=== PATIENT | female | born 2000 | race Caucasian/White ===

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

== ENCOUNTER 2019-02-08 21:15 | Emergency (ER) | payer OTHER ==
--- NOTE | 2019-02-08 21:44 | EDPHYS ---
Physician Documentation [facility] Name: Adelaide Trinidad Age: 19 yrs Sex: Female : 2000 Arrival Date: 02/08/2019 Time: 21:16 Bed 7 Private MD: Bobby Borrero ED Physician Steven Arita HPI: 02/08 21:41 This 19 yrs old Female presents to ER via Ambulatory with complaints of Skin rn Problem. 21:41 the patient presents with a swollen area of the abdomen. Description: erythematous, rn swollen. Onset: The symptoms/episode began/occurred 2 day(s) ago. Possible cause(s): unknown, spider bite. Modifying factors: the symptoms are alleviated by nothing, the symptoms are aggravated by squeezing the lesion and expressing the contents, touching. Severity of symptoms: At their worst the symptoms were very mild, in the emergency department the symptoms are unchanged. The patient has not experienced similar symptoms in the past. REports to small bumps on abdomen that began 2 days ago. NO fever. Sister recently with staph infection. NO hx of recurrent staph infections.. 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 - Social history:: Smoking status: Patient/guardian denies using tobacco. - Ebola Screening: : No symptoms or risks identified at this time. - Family history:: not pertinent. - Hospitalizations: : No recent hospitalization is reported. ROS: 21:41 Constitutional: Negative for fever, chills, and weight loss, Skin: + 2 small pustules rn to abd Exam: 21:41 Constitutional: This is a well developed, well nourished patient who is awake, alert, rn and in no acute distress. Skin: Warm, dry, + 2 areas on anterior LLQ abdominal wall with pustules, no fluctuance, + mild surrounding erythema Vital Signs: 21:21 BP 114 / 66; Pulse 88; Resp 16; Temp 97.7(TE); Pulse Ox 100% on R/A; Weight 72.57 kg; lp1 Height 4 ft. 11 in. (149.86 cm); Pain 7/10; 21:21 Body Mass Index 32.32 (72.57 kg, 149.86 cm) lp1 MDM: 21:33 Patient medically screened. rn 21:41 Differential diagnosis: abscess, cellulitis, insect bite. Data reviewed: vital signs, rn nurses notes, and as a result, I will discharge patient. Counseling: I had a detailed discussion with the patient and/or guardian regarding: the historical points, exam findings, and any diagnostic results supporting the discharge/admit diagnosis, the need for outpatient follow up, to return to the emergency department if symptoms worsen or persist or if there are any questions or concerns that arise at home. Special discussion: I discussed with the patient/guardian in detail that at this point there is no indication for admission to the hospital. It is understood, however, that if the symptoms persist or worsen the patient needs to return immediately for re-evaluation. 21:45 ED course: Instructed to apply heat and continue working with pustules like pimples and rn return if fluctuant or abscess form.. Administered Medications: 21:54 Drug: Clindamycin 300 mg Route: PO; la1 21:54 Follow up: Response: Medication administered at discharge. la1 Disposition: 02/08/19 21:44 Discharged to Home. Impression: Cellulitis of abdominal wall - With pustules. - Condition is Stable. - Discharge Instructions: Cellulitis, Adult. - Prescriptions for Clindamycin HCl 300 mg Oral Capsule - take 1 capsule by ORAL route every 6 hours for 10 days; 40 capsule. - Medication Reconciliation Form, Thank You Letter, Antibiotic Education, Prescription Opioid Use form. - Follow up: Private Physician; When: As needed; Reason: Recheck today's complaints, Re-evaluation by your physician. - Problem is new. - Symptoms have improved. Signatures: Steven Arita MD MD rn Pena, Laura RN RN lp1 Eric Thompson RN RN la1 Corrections: (The following items were deleted from the chart) 21:55 21:44 02/08/2019 21:44 Discharged to Home. Impression: Cellulitis of abdominal wall - la1 With pustules. Condition is Stable. Forms are Medication Reconciliation Form, Thank You Letter, Antibiotic Education, Prescription Opioid Use. Follow up: Private Physician; When: As needed; Reason: Recheck today's complaints, Re-evaluation by your physician. Problem is new. Symptoms have improved. rn
--- NOTE | 2019-02-08 21:44 | ER ---
Nurse's Notes [facility] Name: Adelaide Trinidad Age: 19 yrs Sex: Female : 2000 Arrival Date: 02/08/2019 Time: 21:16 Bed 7 Private MD: Bobby Borrero Diagnosis: Cellulitis of abdominal wall-With pustules Presentation: 02/08 21:20 Presenting complaint: Patient states: Small abscesses x2 to abdomen for the past 2 lp1 days, states painful. Transition of care: patient was not received from another setting of care. Onset of symptoms was February 08, 2019. Risk Assessment: Do you want to hurt yourself or someone else? Patient reports no desire to harm self or others. Initial Sepsis Screen: Does the patient meet any 2 criteria? No. Patient's initial sepsis screen is negative. Does the patient have a suspected source of infection? No. Patient's initial sepsis screen is negative. Care prior to arrival: None. 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 - Social history:: Smoking status: Patient/guardian denies using tobacco. - Ebola Screening: : No symptoms or risks identified at this time. - Family history:: not pertinent. - Hospitalizations: : No recent hospitalization is reported. Screenin:22 Abuse screen: Denies threats or abuse. Denies injuries from another. Nutritional lp1 screening: No deficits noted. Tuberculosis screening: No symptoms or risk factors identified. Fall Risk None identified. Assessment: 21:35 General: Appears in no apparent distress. Behavior is calm, cooperative. Pain: Denies la1 pain. Derm: Abscess located on left upper quadrant and left lower quadrant is nickel sized, has no drainage, is hot to touch, is red, is raised. Vital Signs: 21:21 BP 114 / 66; Pulse 88; Resp 16; Temp 97.7(TE); Pulse Ox 100% on R/A; Weight 72.57 kg; lp1 Height 4 ft. 11 in. (149.86 cm); Pain 7/10; 21:21 Body Mass Index 32.32 (72.57 kg, 149.86 cm) lp1 ED Course: 21:16 Patient arrived in ED. do 21:16 Bobby Borrero MD is Private Physician. do 21:21 Triage completed. lp1 21:22 Arm band placed on right wrist. lp1 21:22 Patient has correct armband on for positive identification. lp1 21:33 Steven Arita MD is Attending Physician. rn 21:35 Eric Thompson RN is Primary Nurse. la1 21:35 No provider procedures requiring assistance completed. Patient did not have IV access la1 during this emergency room visit. Administered Medications: 21:54 Drug: Clindamycin 300 mg Route: PO; la1 21:54 Follow up: Response: Medication administered at discharge. la1 Outcome: 21:44 Discharge ordered by . rn 21:54 Discharged to home ambulatory. la1 21:54 Condition: stable 21:54 Discharge instructions given to patient, Instructed on discharge instructions, follow up and referral plans. medication usage, Demonstrated understanding of instructions, follow-up care, medications, Prescriptions given X 1. 21:55 Patient left the ED. la1 Signatures: Steven Arita MD MD rn Pena, Laura, RN RN lp1 Eric Thompson RN RN la1 Marcy Farmer do
[2019-02-08] MEDS ORDERED: CLINDAMYCIN HCL 150 MG CAP ONE (22:04)
[2019-02-09 00:56] VITALS: BP 114/66; TEMP 97.7; O2SAT 100
== END 2019-02-08 21:55 | disposition home or self-care (01) ==
LOC: ER 21:15
DX: L03.311 Cellulitis of abdominal wall (principal); J45.909 Unspecified asthma, uncomplicated; Z88.1 Allergy status to other antibiotic agents
CPT/HCPCS: 99283

== ENCOUNTER 2019-02-19 22:07 | Emergency (ER) | payer OTHER ==
--- NOTE | 2019-02-19 22:55 | ER ---
Nurse's Notes [facility] Name: Adelaide Trinidad Age: 19 yrs Sex: Female : 2000 Arrival Date: 02/19/2019 Time: 22:08 Bed 19 Private MD: Bobby Borrero Diagnosis: Contusion of left forearm Presentation: 02/19 22:16 Presenting complaint: Patient states: trunk of her car fell on her left forearm ak1 yesterday. bruising noted to left forearm. Transition of care: patient was not received from another setting of care. Onset of symptoms was February 18, 2019. Risk Assessment: Do you want to hurt yourself or someone else? Patient reports no desire to harm self or others. Initial Sepsis Screen: Does the patient meet any 2 criteria? No. Patient's initial sepsis screen is negative. Does the patient have a suspected source of infection? No. Patient's initial sepsis screen is negative. Care prior to arrival: None. 22:16 Method Of Arrival: Ambulatory ak1 22:16 Acuity: LUIZ 4 ak1 Triage Assessment: 22:18 General: Appears in no apparent distress. Behavior is calm, cooperative. Pain: ak1 Complains of pain in dorsal aspect of left forearm. EENT: No signs and/or symptoms were reported regarding the EENT system. Neuro: No deficits noted. Cardiovascular: No deficits noted. Respiratory: No deficits noted. GI: No signs and/or symptoms were reported involving the gastrointestinal system. : No signs and/or symptoms were reported regarding the genitourinary system. Derm: Skin is pink, warm \T\ dry. Skin temperature is warm Bruising that is dark purple, on dorsal aspect of left forearm. Musculoskeletal: No signs and/or symptoms reported regarding the musculoskeletal system. Injury Description: Crush injury sustained to left arm was sustained 1 day ago. 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 - Social history:: Smoking status: Patient/guardian denies using tobacco. - Ebola Screening: : No symptoms or risks identified at this time. Screenin:19 Abuse screen: Denies threats or abuse. Denies injuries from another. Nutritional ak1 screening: No deficits noted. Tuberculosis screening: No symptoms or risk factors identified. Fall Risk None identified. Assessment: 22:34 General: see triage assessment. cc3 23:45 Reassessment: Patient appears in no apparent distress at this time. Patient and/or cc3 family updated on plan of care and expected duration. Pain level reassessed. Patient is alert, oriented x 3, equal unlabored respirations, skin warm/dry/pink. Dr. Louie discharged the patient home with prescription given. No IV cannula in situ. Patient left ER vitally stable and ambulatory. Patient denies pain at this time. Patient states feeling better. Patient states symptoms have improved. Vital Signs: 22:18 BP 117 / 74; Pulse 91; Resp 18; Temp 97.6(TE); Pulse Ox 100% on R/A; Weight 72.57 kg ak1 (R); Height 4 ft. 11 in. (149.86 cm) (R); Pain 9/10; 23:20 BP 112 / 77; Pulse 90; Resp 17 S; Pulse Ox 100% on R/A; cc3 22:18 Body Mass Index 32.32 (72.57 kg, 149.86 cm) ak1 ED Course: 22:08 Patient arrived in ED. do 22:09 Bobby Borrero MD is Private Physician. do 22:17 Triage completed. ak1 22:18 Arm band placed on Patient placed in an exam room, on a stretcher, on pulse oximetry, ak1 Patient notified of wait time. 22:19 Patient has correct armband on for positive identification. Bed in low position. Call ak1 light in reach. Side rails up X 1. Pulse ox on. NIBP on. 22:31 XRAY Forearm LEFT In Process Unspecified. EDMS 22:34 Sierra Mejia is Primary Nurse. cc3 22:34 Juan A Louie MD is Attending Physician. antionette 22:54 Bobby Borrero MD is Referral Physician. antionette 23:45 No provider procedures requiring assistance completed. Patient did not have IV access cc3 during this emergency room visit. Administered Medications: 23:25 Drug: Motrin 600 mg Route: PO; cc3 23:45 Follow up: Response: No adverse reaction; Pain is decreased cc3 Outcome: 22:54 Discharge ordered by MD. adan 23:45 Patient left the ED. cc3 23:45 Discharged to home ambulatory. cc3 23:45 Condition: stable 23:45 Discharge instructions given to patient, Instructed on discharge instructions, follow up and referral plans. medication usage, Demonstrated understanding of instructions, follow-up care, medications, Prescriptions given X 2. Signatures: Dispatcher [employer] Juan A Encarnacion MD MD cha Krenek, Amber RN RN ak1 Marcy Farmer Charlene cc3
--- NOTE | 2019-02-19 22:55 | EDPHYS ---
Physician Documentation [facility] Name: Adelaide Trinidad Age: 19 yrs Sex: Female : 2000 Arrival Date: 02/19/2019 Time: 22:08 Bed 19 Private MD: Bobby Borrero ED Physician Juan A Louie HPI: 02/19 22:49 This 19 yrs old Female presents to ER via Ambulatory with complaints of Arm antionette Injury. 22:49 The patient or guardian complains of contusion, decreased range of motion, injury. The antionette complaints affect the palmar aspect of left forearm. Context: The problem was sustained at home. Onset: The symptoms/episode began/occurred just prior to arrival. Treatment prior to arrival includes: no previous treatment. Modifying factors: The symptoms are alleviated by remaining still, the symptoms are aggravated by nothing. Associated signs and symptoms: The patient has no apparent associated signs or symptoms. Severity of symptoms: At their worst the symptoms were moderate, in the emergency department the symptoms are unchanged. The patient has not experienced similar symptoms in the past. 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 - Social history:: Smoking status: Patient/guardian denies using tobacco. - Ebola Screening: : No symptoms or risks identified at this time. ROS: 22:49 Constitutional: Negative for fever, chills, and weight loss, Eyes: Negative for injury, antionette pain, redness, and discharge, ENT: Negative for injury, pain, and discharge, Neck: Negative for injury, pain, and swelling, Cardiovascular: Negative for chest pain, palpitations, and edema, Respiratory: Negative for shortness of breath, cough, wheezing, and pleuritic chest pain, Abdomen/GI: Negative for abdominal pain, nausea, vomiting, diarrhea, and constipation, Back: Negative for injury and pain, : Negative for injury, bleeding, discharge, and swelling, Skin: Negative for injury, rash, and discoloration, Neuro: Negative for headache, weakness, numbness, tingling, and seizure, Psych: Negative for depression, anxiety, suicide ideation, homicidal ideation, and hallucinations, Allergy/Immunology: Negative for hives, rash, and allergies, Endocrine: Negative for neck swelling, polydipsia, polyuria, polyphagia, and marked weight changes. 22:49 MS/extremity: Positive for injury or acute deformity, pain, of the palmar aspect of left forearm. Exam: 22:49 Constitutional: This is a well developed, well nourished patient who is awake, alert, antionette and in no acute distress. Head/Face: Normocephalic, atraumatic. Eyes: Pupils equal round and reactive to light, extra-ocular motions intact. Lids and lashes normal. Conjunctiva and sclera are non-icteric and not injected. Cornea within normal limits. Periorbital areas with no swelling, redness, or edema. ENT: Nares patent. No nasal discharge, no septal abnormalities noted. Tympanic membranes are normal and external auditory canals are clear. Oropharynx with no redness, swelling, or masses, exudates, or evidence of obstruction, uvula midline. Mucous membranes moist. Neck: Trachea midline, no thyromegaly or masses palpated, and no cervical lymphadenopathy. Supple, full range of motion without nuchal rigidity, or vertebral point tenderness. No Meningismus. Chest/axilla: Normal chest wall appearance and motion. Nontender with no deformity. No lesions are appreciated. Cardiovascular: Regular rate and rhythm with a normal S1 and S2. No gallops, murmurs, or rubs. Normal PMI, no JVD. No pulse deficits. Respiratory: Lungs have equal breath sounds bilaterally, clear to auscultation and percussion. No rales, rhonchi or wheezes noted. No increased work of breathing, no retractions or nasal flaring. Abdomen/GI: Soft, non-tender, with normal bowel sounds. No distension or tympany. No guarding or rebound. No evidence of tenderness throughout. Back: No spinal tenderness. No costovertebral tenderness. Full range of motion. Skin: Warm, dry with normal turgor. Normal color with no rashes, no lesions, and no evidence of cellulitis. Neuro: Awake and alert, GCS 15, oriented to person, place, time, and situation. Cranial nerves II-XII grossly intact. Motor strength 5/5 in all extremities. Sensory grossly intact. Cerebellar exam normal. Normal gait. Psych: Awake, alert, with orientation to person, place and time. Behavior, mood, and affect are within normal limits. 22:49 Musculoskeletal/extremity: Extremities: decreased ROM, pain, ROM: full active range of motion, full passive range of motion, limited active range of motion due to pain, limited passive range of motion due to pain, Circulation is intact in all extremities. Sensation intact. Compartment Syndrome exam of affected extremity: is normal. no numbness, no tingling, no sensation deficit, no palor, no weak pulses, severe pain, with passive ROM, DVT Exam: negative Homans' sign noted on exam, no appreciated bluish discoloration, no erythema, no increased warmth, pain, swelling, tenderness, not severe. Vital Signs: 22:18 BP 117 / 74; Pulse 91; Resp 18; Temp 97.6(TE); Pulse Ox 100% on R/A; Weight 72.57 kg ak1 (R); Height 4 ft. 11 in. (149.86 cm) (R); Pain 9/10; 23:20 BP 112 / 77; Pulse 90; Resp 17 S; Pulse Ox 100% on R/A; cc3 22:18 Body Mass Index 32.32 (72.57 kg, 149.86 cm) [facility] MDM: 22:34 Patient medically screened. [facility] 22:53 Data reviewed: vital signs, nurses notes, radiologic studies. [facility] 02/19 23:30 Order name: Urine Dipstick--Ancillary (enter results) 02/19 23:30 Order name: Urine --Ancillary (enter results) 02/19 22:21 Order name: XRAY Forearm LEFT ak 02/19 22:48 Order name: Ice pack; Complete Time: 23:44 [facility] 02/19 22:49 Order name: Sling; Complete Time: 23:37 [facility] 02/19 22:54 Order name: Urine Test (obtain specimen); Complete Time: 23:28 [facility] Administered Medications: 23:25 Drug: Motrin 600 mg Route: PO; cc3 23:45 Follow up: Response: No adverse reaction; Pain is decreased cc3 Disposition: 02/19/19 22:54 Discharged to Home. Impression: Contusion of left forearm. - Condition is Stable. - Discharge Instructions: Contusion, Contusion, [id number]. - Prescriptions for Tylenol- Codeine #3 300-30 mg Oral Tablet - take 2 tablets by ORAL route every 6 hours As needed; 20 tablet. Motrin IB 200 mg Oral Tablet - take 2 tablet by ORAL route every 6 hours As needed as needed with food; 30 tablet. - Medication Reconciliation Form, Thank You Letter, Antibiotic Education, Prescription Opioid Use form. - Follow up: Bobby Borrero MD; When: 2 - 3 days; Reason: Recheck today's complaints, Continuance of care, Re-evaluation by your physician. - Problem is new. - Symptoms have improved. Signatures: Dispatcher [employer] EDMS Juan A Louie MD MD cha Krenek, Amber RN RN ak1 Sierra Mejia cc3 Corrections: (The following items were deleted from the chart) 23:45 22:54 02/19/2019 22:54 Discharged to Home. Impression: Contusion of left forearm. cc3 Condition is Stable. Forms are Medication Reconciliation Form, Thank You Letter, Antibiotic Education, Prescription Opioid Use. Follow up: Bobby Borrero; When: 2 - 3 days; Reason: Recheck today's complaints, Continuance of care, Re-evaluation by your physician. Problem is new. Symptoms have improved. antionette
[2019-02-19 23:38] LABS: Urine Blood NEGATIVE (NEG); Urine Glucose NEGATIVE (NEG); Urine Protein NEGATIVE (NEG); Urine Specific Gravity 1.015 (1.005-1.030)
[2019-02-19] MEDS ORDERED: IBUPROFEN 200 MG TAB PO ONE (23:42)
[2019-02-19] MEDS ORDERED: IBUPROFEN 400 MG TAB ONE (23:42)
[2019-02-19 23:53] VITALS: BP 117/74; TEMP 97.6; O2SAT 100
--- NOTE | 2019-02-20 07:26 | RAD REPORT ---
EXAM DESCRIPTION: RAD - Forearm Left - 02/19/2019 10:31 pm CLINICAL HISTORY: Left forearm pain, blunt force trauma COMPARISON: None. FINDINGS: No fracture is identified. There is no dislocation or periosteal reaction noted. No foreign body or other soft tissue abnormality. IMPRESSION: Negative left forearm examination.
== END 2019-02-19 23:45 | disposition home or self-care (01) ==
LOC: ER 22:07
DX: S50.12XA Contusion of left forearm, initial encounter (principal); Y92.009 Unspecified place in unspecified non-institutional (private) residence as the place of occurrence of the external cause; F41.9 Anxiety disorder, unspecified; J45.909 Unspecified asthma, uncomplicated; F32.9 Major depressive disorder, single episode, unspecified; Z88.1 Allergy status to other antibiotic agents
CPT/HCPCS: 81003; 81025; 99284

== ENCOUNTER 2019-05-05 20:27 | Emergency (ER) | payer OTHER ==
--- NOTE | 2019-05-05 21:59 | RAD REPORT ---
EXAM DESCRIPTION: RAD - Chest Pa And Lat (2 Views) - 05/05/2019 9:22 pm CLINICAL HISTORY: Chest pain;Cough;Dyspnea Chest pain. COMPARISON: <Comparisons> FINDINGS: The lungs are clear. The heart is normal in size. No displaced fractures. IMPRESSION: No acute or concerning finding suspected.
[2019-05-05] MEDS ORDERED: predniSONE 20 MG TAB ONE (22:00)
[2019-05-05] MEDS ORDERED: predniSONE 10 MG TAB ONE (22:00)
[2019-05-05] MEDS ORDERED: LEVALBUTEROL 1.25 MG/3 ML NEB ONE (22:00)
--- NOTE | 2019-05-05 22:15 | ER ---
Nurse's Notes [facility] Name: Adelaide Trinidad Age: 19 yrs Sex: Female : 2000 Arrival Date: 05/05/2019 Time: 20:30 Bed 16 Private MD: Bobby Borrero Diagnosis: Asthma Presentation: 05/05 20:59 Presenting complaint: Patient states: coughX1 week with chest pain with cough. pt c/o ak1 SOB X1 hour. pt used inhaler at home, no relief. Transition of care: patient was not received from another setting of care. Onset of symptoms was May 05, 2019. Risk Assessment: Do you want to hurt yourself or someone else? Patient reports no desire to harm self or others. Initial Sepsis Screen: Does the patient meet any 2 criteria? No. Patient's initial sepsis screen is negative. Does the patient have a suspected source of infection? No. Patient's initial sepsis screen is negative. Care prior to arrival: None. 20:59 Method Of Arrival: Ambulatory ak1 20:59 Acuity: LUIZ 4 ak1 Triage Assessment: 20:59 General: Appears in no apparent distress. uncomfortable, Behavior is cooperative, ak1 anxious. Pain: Complains of pain in chest. EENT: No signs and/or symptoms were reported regarding the EENT system. Neuro: No deficits noted. Cardiovascular: No deficits noted. Respiratory: Reports shortness of breath cough that is non-productive, dry, air hunger Airway is patent Respiratory effort is unlabored, Breath sounds are clear bilaterally. 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 GI: No signs and/or symptoms were reported involving the gastrointestinal system. : No signs and/or symptoms were reported regarding the genitourinary system. Derm: No signs and/or symptoms reported regarding the dermatologic system. Musculoskeletal: No signs and/or symptoms reported regarding the musculoskeletal system. 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 - Social history:: Smoking status: Patient uses tobacco products. - Family history:: not pertinent. - Ebola Screening: : No symptoms or risks identified at this time. - Hospitalizations: : No recent hospitalization is reported. Screenin:02 Abuse screen: Denies threats or abuse. Denies injuries from another. Nutritional ak1 screening: No deficits noted. Tuberculosis screening: No symptoms or risk factors identified. Fall Risk None identified. Assessment: 22:12 General: Appears in no apparent distress. Behavior is calm, cooperative, appropriate ea for age. Pain: Denies pain. Neuro: Level of Consciousness is awake, alert, obeys commands, Oriented to person, place, time, situation. Cardiovascular: Patient's skin is warm and dry. Respiratory: Airway is patent Respiratory effort is even, unlabored, Respiratory pattern is regular, symmetrical, Breath sounds with wheezes bilaterally. Derm: Skin is pink, warm \T\ dry. Musculoskeletal: Circulation, motion, and sensation intact. 22:29 Reassessment: Patient and/or family updated on plan of care and expected duration. Pain ea level reassessed. Patient is alert, oriented x 3, equal unlabored respirations, skin warm/dry/pink. Discharge instruction given to patient, verbalized the understanding of instruction. Pt reports she is awaiting her ride. 22:41 Reassessment: Patient and/or family updated on plan of care and expected duration. Pain ea level reassessed. Patient is alert, oriented x 3, equal unlabored respirations, skin warm/dry/pink. Pt left ED ambulatory, pt tolerating well Patient states feeling better. Patient states symptoms have improved. Vital Signs: 20:59 BP 107 / 60; Pulse 89; Resp 20; Temp 98; Pulse Ox 100% on R/A; Weight 72.57 kg (R); ak1 Height 4 ft. 11 in. (149.86 cm) (R); Pain 9/10; 21:36 BP 127 / 80; Pulse 75; Resp 18; Pulse Ox 97% on R/A; ea 22:14 BP 116 / 56; Pulse 76; Resp 18; Pulse Ox 96% on R/A; ea 20:59 Body Mass Index 32.32 (72.57 kg, 149.86 cm) [facility] ED Course: 20:30 Patient arrived in ED. do 20:31 Bobby Borrero MD is Private Physician. do 20:59 Arm band placed on Patient placed in waiting room, Patient notified of wait time. ak1 21:00 Triage completed. ak1 21:01 Patient has correct armband on for positive identification. ak1 21:20 Steven Arita MD is Attending Physician. rn 21:22 XRAY Chest Pa And Lat (2 Views) In Process Unspecified. EDMS 21:43 Taryn Ryan, JAZ is Primary Nurse. ea 22:30 No provider procedures requiring assistance completed. Patient did not have IV access ea during this emergency room visit. Administered Medications: 21:50 Drug: predniSONE 60 mg Route: PO; ea 22:32 Follow up: Response: No adverse reaction ea 21:50 Drug: Xopenex (3) 1.25 mg Route: Inhalation; ea 22:32 Follow up: Response: No adverse reaction; Marked relief of symptoms; Wheezing diminishedea Outcome: 22:14 Discharge ordered by MD. rn 22:30 Discharge instructions given to patient, Instructed on discharge instructions, follow ea up and referral plans. medication usage, Demonstrated understanding of instructions, follow-up care, medications, Prescriptions given X 2. 22:41 Discharged to home ambulatory. ea 22:41 Condition: improved 22:41 Patient left the ED. ea Signatures: Dispatcher [employer] EDMS Steven Arita MD MD rn Krenek, Amber RN RN ak1 MarlenyMarcy doan Elena, RN RN ea
--- NOTE | 2019-05-05 22:15 | EDPHYS ---
Physician Documentation [facility] Name: Adelaide Trinidad Age: 19 yrs Sex: Female : 2000 Arrival Date: 05/05/2019 Time: 20:30 Bed 16 Private MD: Bobby Borrero ED Physician Steevn Arita HPI: 05/05 21:57 This 19 yrs old Female presents to ER via Ambulatory with complaints of rn Asthma Exacerbation, Breathing Difficulty, Chest Pain. 21:57 The patient has shortness of breath at rest, with light activity. Onset: The rn symptoms/episode began/occurred 1 week(s) ago. Duration: The symptoms are intermittent. The patient's shortness of breath is aggravated by coughing, light activity, is alleviated by nebulizer treatment. Severity of symptoms: At their worst the symptoms were moderate in the emergency department the symptoms have improved. The patient has experienced similar episodes in the past. Reports cough for 1 week, some improvement with nebs, reports found black mold in ac ducts, reports afebrile, and having left sided chest pain with cough. . 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 - Social history:: Smoking status: Patient uses tobacco products. - Family history:: not pertinent. - Ebola Screening: : No symptoms or risks identified at this time. - Hospitalizations: : No recent hospitalization is reported. ROS: 21:57 Constitutional: Negative for fever, chills, and weight loss, Eyes: Negative for injury, rn pain, redness, and discharge, Neck: Negative for injury, pain, and swelling, Cardiovascular: Negative for palpitations, and edema, Respiratory: + for cough and sob Abdomen/GI: Negative for abdominal pain, nausea, vomiting, diarrhea, and constipation, MS/Extremity: Negative for injury and deformity, Skin: Negative for injury, rash, and discoloration, Neuro: Negative for headache, weakness, numbness, tingling, and seizure. Exam: 21:57 Constitutional: This is a well developed, well nourished patient who is awake, alert, rn and in no acute distress. Head/Face: Normocephalic, atraumatic. Eyes: Pupils equal round and reactive to light, extra-ocular motions intact. Lids and lashes normal. Conjunctiva and sclera are non-icteric and not injected. Cornea within normal limits. Periorbital areas with no swelling, redness, or edema. ENT: MMM, no stridor Cardiovascular: Regular rate and rhythm. No pulse deficits. Respiratory: + faint exp wheezing, no retractions, speaking full sentences Skin: Warm, dry with normal turgor. Normal color with no rashes, no lesions, and no evidence of cellulitis. MS/ Extremity: Pulses equal, no cyanosis. Neurovascular intact. Full, normal range of motion. Equal circumference. Neuro: Awake and alert, GCS 15, oriented to person, place, time, and situation. Cranial nerves II-XII grossly intact. Motor strength 5/5 in all extremities. Sensory grossly intact. Cerebellar exam normal. Normal gait. Vital Signs: 20:59 BP 107 / 60; Pulse 89; Resp 20; Temp 98; Pulse Ox 100% on R/A; Weight 72.57 kg (R); ak1 Height 4 ft. 11 in. (149.86 cm) (R); Pain 9/10; 21:36 BP 127 / 80; Pulse 75; Resp 18; Pulse Ox 97% on R/A; ea 22:14 BP 116 / 56; Pulse 76; Resp 18; Pulse Ox 96% on R/A; ea 20:59 Body Mass Index 32.32 (72.57 kg, 149.86 cm) ak1 MDM: 21:20 Patient medically screened. rn 22:12 Differential diagnosis: asthma, Bronchitis pneumonia. Data reviewed: vital signs, rn nurses notes, radiologic studies, plain films, and as a result, I will discharge patient. Test interpretation: by ED physician or midlevel provider: plain radiologic studies, CXR without acute infiltrate/pneumothorax/pneumonia. Counseling: I had a detailed discussion with the patient and/or guardian regarding: the historical points, exam findings, and any diagnostic results supporting the discharge/admit diagnosis, radiology results, the need for outpatient follow up, to return to the emergency department if symptoms worsen or persist or if there are any questions or concerns that arise at home. Response to treatment: the patient's symptoms have markedly improved after treatment, and as a result, I will discharge patient. Special discussion: I discussed with the patient/guardian in detail that at this point there is no indication for admission to the hospital. It is understood, however, that if the symptoms persist or worsen the patient needs to return immediately for re-evaluation. 05/05 21:03 Order name: XRAY Chest Pa And Lat (2 Views); Complete Time: 22:12 ak1 05/05 21:29 Order name: EKG; Complete Time: 21:29 rn 05/05 21:29 Order name: EKG - Nurse/Tech; Complete Time: 22:00 rn Administered Medications: 21:50 Drug: predniSONE 60 mg Route: PO; ea 22:32 Follow up: Response: No adverse reaction ea 21:50 Drug: Xopenex (3) 1.25 mg Route: Inhalation; ea 22:32 Follow up: Response: No adverse reaction; Marked relief of symptoms; Wheezing diminishedea Disposition: 05/05/19 22:14 Discharged to Home. Impression: Asthma. - Condition is Stable. - Discharge Instructions: Asthma, Acute Bronchospasm. - Prescriptions for Prednisone 20 mg Oral Tablet - take 3 tablet by ORAL route once daily for 5 days; 15 tablet. Albuterol Sulfate 90 mcg/actuation - inhale 1-2 puff by INHALATION route every 4-6 hours; 1 Inhaler. - Medication Reconciliation Form, Thank You Letter, Antibiotic Education, Prescription Opioid Use form. - Follow up: Private Physician; When: As needed; Reason: Recheck today's complaints, Re-evaluation by your physician. - Problem is new. - Symptoms have improved. Signatures: Dispatcher [employer] EDSteven Zhou MD MD rn Krenek, Amber, RN RN ak1 Taryn Ryan RN RN ea Corrections: (The following items were deleted from the chart) 22:41 22:14 05/05/2019 22:14 Discharged to Home. Impression: Asthma. Condition is Stable. ea Forms are Medication Reconciliation Form, Thank You Letter, Antibiotic Education, Prescription Opioid Use. Follow up: Private Physician; When: As needed; Reason: Recheck today's complaints, Re-evaluation by your physician. Problem is new. Symptoms have improved. rn
[2019-05-05 23:46] VITALS: TEMP 98
[2019-05-05 23:49] VITALS: BP 116/56; O2SAT 96
--- NOTE | 2019-05-06 09:56 | EKG ---
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
== END 2019-05-05 22:41 | disposition home or self-care (01) ==
LOC: ER 20:27
DX: J45.909 Unspecified asthma, uncomplicated (principal); Z72.0 Tobacco use; Z88.1 Allergy status to other antibiotic agents
CPT/HCPCS: 71046; 93005; 99284; J7512

== ENCOUNTER 2019-06-19 20:37 | Emergency (ER) | payer OTHER ==
[2019-06-19 21:29] LABS: Urine Amorphous Sediment 2+ /HPF (NONE SEEN); Urine Bacteria <20 /HPF (<20); Urine Culture Reflex Order REFLEXED; Urine RBC NONE SEEN /HPF (NONE SEEN)
[2019-06-19 21:29] LABS: Urine Blood NEGATIVE (NEG); Urine Glucose NEGATIVE (NEG); Urine Protein NEGATIVE (NEG); Urine Specific Gravity 1.015 (1.005-1.030)
--- NOTE | 2019-06-19 21:37 | ER ---
Nurse's Notes [facility] Name: Adelaide Trinidad Age: 19 yrs Sex: Female : 2000 Arrival Date: 06/19/2019 Time: 20:39 Bed 15 Private MD: Bobby Borrero Diagnosis: Low back pain Presentation: 06/19 20:55 Presenting complaint: Patient states: I am having lower back pain that radiates up my jb4 back and down my legs. 20:55 Transition of care: patient was not received from another setting of care. Onset of jb4 symptoms was June 05, 2019. Risk Assessment: Do you want to hurt yourself or someone else? Patient reports no desire to harm self or others. Initial Sepsis Screen: Does the patient meet any 2 criteria? No. Patient's initial sepsis screen is negative. Does the patient have a suspected source of infection? No. Patient's initial sepsis screen is negative. Care prior to arrival: None. 20:55 Method Of Arrival: Ambulatory jb4 20:55 Acuity: LUIZ 4 jb4 Historical: - Allergies: 20:55 Bactrim; jb4 20:55 Doxycycline; jb4 20:55 Zithromax; jb4 - Home Meds: 20:55 Albuterol Inhl [Active]; jb4 - PMHx: 20:55 Anxiety; Asthma; Depression; HYPOGLYCEMIA; scoliosis; jb4 - PSHx: 20:55 Appendectomy; jb4 - Immunization history:: Adult Immunizations up to date. - Social history:: Smoking status: Patient/guardian denies using tobacco, Patient/guardian denies using alcohol. - Ebola Screening: : No symptoms or risks identified at this time. Screenin:55 Abuse screen: Denies threats or abuse. Nutritional screening: No deficits noted. jb4 Tuberculosis screening: No symptoms or risk factors identified. Fall Risk None identified. Assessment: 20:55 General: Appears in no apparent distress. uncomfortable, Behavior is calm, cooperative, jb4 appropriate for age. Pain: Complains of pain in low back area Pain radiates to thoracic area, lumbar area, right leg and left leg Pain currently is 9 out of 10 on a pain scale. Neuro: Level of Consciousness is awake, alert, obeys commands, Oriented to person, place, time, situation. Cardiovascular: Patient's skin is warm and dry. Respiratory: Airway is patent Respiratory effort is even, unlabored, Respiratory pattern is regular, symmetrical. GI: No deficits noted. No signs and/or symptoms were reported involving the gastrointestinal system. : No deficits noted. No signs and/or symptoms were reported regarding the genitourinary system. EENT: No deficits noted. No signs and/or symptoms were reported regarding the EENT system. Derm: Skin is intact, Skin is pink, warm \T\ dry. Musculoskeletal: Circulation, motion, and sensation intact. Range of motion:. 22:03 Reassessment: Patient appears in no apparent distress at this time. Patient and/or jb4 family updated on plan of care and expected duration. Pain level reassessed. Patient is alert, oriented x 3, equal unlabored respirations, skin warm/dry/pink. Pt verbalized understanding of d/c and follow up instructions. Ambulated out of Ed with steady gait with friends. Vital Signs: 20:55 BP 112 / 58; Pulse 81; Resp 16; Temp 98.8(O); Pulse Ox 99% on R/A; Weight 72.57 kg (R); jb4 Height 4 ft. 11 in. (149.86 cm) (R); Pain 9/10; 22:03 BP 111 / 65; Pulse 87; Resp 16; Pulse Ox 100% on R/A; jb4 20:55 Body Mass Index 32.32 (72.57 kg, 149.86 cm) jb4 ED Course: 20:39 Patient arrived in ED. es 20:40 Bobby Borrero MD is Private Physician. es 20:42 [facility]. cp 20:42 Denys Singer MD is Attending Physician. cp 20:55 Arm band placed on right wrist. jb4 20:55 Patient has correct armband on for positive identification. Bed in low position. Call jb4 light in reach. Side rails up X 1. Pulse ox on. NIBP on. 21:09 Lauri Okeefe, RN is Primary Nurse. jb4 21:12 Triage completed. jb4 21:19 XRAY Lumbar Spine (3 Views) In Process Unspecified. EDMS 22:04 No provider procedures requiring assistance completed. Patient did not have IV access jb4 during this emergency room visit. Administered Medications: 22:00 Drug: TORadol 60 mg Route: IM; Site: right gluteus; jb4 22:00 Follow up: Response: Medication administered at discharge. jb4 Outcome: 21:34 Discharge ordered by MD. cp 22:04 Discharged to home ambulatory, with friend. jb4 22:04 Condition: stable 22:04 Discharge instructions given to patient, friend, Instructed on discharge instructions, follow up and referral plans. medication usage, Demonstrated understanding of instructions, follow-up care, medications, Prescriptions given X 2. 22:05 Patient left the ED. jb4 Signatures: Dispatcher [employer] Cherry Kendall Corey, TONY PA Lauri Carroll, RN RN jb4
--- NOTE | 2019-06-19 21:37 | EDPHYS ---
Physician Documentation [facility] Name: Adelaide Trinidad Age: 19 yrs Sex: Female : 2000 Arrival Date: 06/19/2019 Time: 20:39 Bed 15 Private MD: Bobby Borrero ED Physician Denys Singer HPI: 06/19 21:00 This 19 yrs old Female presents to ER via Ambulatory with complaints of Back cp Pain. 21:00 The patient presents with pain that is acute, with no known mechanism of injury. cp 21:00 The symptoms are located in the low back. Onset: The symptoms/episode began/occurred 2 cp week(s) ago. The pain radiates to the right mid back. Associated signs and symptoms: Pertinent negatives: abdominal pain, chest pain, constipation, dysuria, fever, hematuria, incontinence, numbness, urinary retention, weakness. The problem was sustained from unknown cause. Modifying factors: the patient symptoms are aggravated by movement. The patient has been recently seen by a physician: the patient's primary care provider, with similar presenting complaints, has MRI scheduled. Historical: - Allergies: 20:55 Bactrim; jb4 20:55 Doxycycline; jb4 20:55 Zithromax; jb4 - Home Meds: 20:55 Albuterol Inhl [Active]; jb4 - PMHx: 20:55 Anxiety; Asthma; Depression; HYPOGLYCEMIA; scoliosis; jb4 - PSHx: 20:55 Appendectomy; jb4 - Immunization history:: Adult Immunizations up to date. - Social history:: Smoking status: Patient/guardian denies using tobacco, Patient/guardian denies using alcohol. - Ebola Screening: : No symptoms or risks identified at this time. ROS: 21:05 Constitutional: Negative for body aches, chills, fever, poor PO intake. cp 21:05 Eyes: Negative for injury, pain, redness, and discharge. cp 21:05 ENT: Negative for drainage from ear(s), ear pain, sore throat, difficulty swallowing, difficulty handling secretions. 21:05 Neck: Negative for pain with movement, pain at rest, stiffness. 21:05 Cardiovascular: Negative for chest pain, edema, palpitations. 21:05 Respiratory: Negative for cough, shortness of breath, wheezing. 21:05 Abdomen/GI: Negative for abdominal pain, nausea, vomiting, and diarrhea, constipation, bowel incontinence. 21:05 Back: Positive for pain at rest, pain with movement. 21:05 : Negative for urinary symptoms, difficulty urinating, bladder incontinence. 21:05 Neuro: Negative for altered mental status, headache, numbness, tingling, weakness. 21:05 All other systems are negative. Exam: 21:15 Constitutional: The patient appears in no acute distress, alert, awake, non-toxic, well cp developed, well nourished. 21:15 Head/Face: Normocephalic, atraumatic. cp 21:15 Eyes: Periorbital structures: appear normal, Conjunctiva: normal, no exudate, no injection, Sclera: no appreciated abnormality, Lids and lashes: appear normal, bilaterally. 21:15 ENT: External ear(s): are unremarkable, Nose: is normal, Mouth: Lips: moist, Oral mucosa: moist, Posterior pharynx: Airway: no evidence of obstruction, patent. 21:15 Neck: ROM/movement: is normal, is supple, without pain, no range of motions limitations, no nuchal rigidity. 21:15 Chest/axilla: Inspection: normal. 21:15 Cardiovascular: Rate: normal, Rhythm: regular. 21:15 Respiratory: the patient does not display signs of respiratory distress, Respirations: normal, no use of accessory muscles, no retractions, no splinting, no tachypnea. 21:15 Abdomen/GI: Inspection: abdomen appears normal, Palpation: abdomen is soft and non-tender, in all quadrants. 21:15 Back: pain, that is moderate, of the right mid back and right low back, ROM is painful, Straight leg raises: of both lower extremities does not illicit pain. 21:15 Neuro: Motor: moves all fours, strength is normal, Sensation: is normal, Deep tendon reflexes are 2+ (normal) in the right patellar, right Achilles, left patellar and left Achilles. Vital Signs: 20:55 BP 112 / 58; Pulse 81; Resp 16; Temp 98.8(O); Pulse Ox 99% on R/A; Weight 72.57 kg (R); jb4 Height 4 ft. 11 in. (149.86 cm) (R); Pain 9/10; 22:03 BP 111 / 65; Pulse 87; Resp 16; Pulse Ox 100% on R/A; jb4 20:55 Body Mass Index 32.32 (72.57 kg, 149.86 cm) jb4 MDM: 20:54 Patient medically screened. cp 21:33 Test interpretation: by ED physician or midlevel provider: xrays of lumbar spine cp negative for acute findings. 21:33 Data reviewed: vital signs, nurses notes, lab test result(s), radiologic studies, plain cp films, and as a result, I will discharge patient. 21:33 Differential diagnosis: Cholelithiasis chronic back pain, Pyelonephritis ruptured disc, cp Ureterolithiasis. Counseling: I had a detailed discussion with the patient and/or guardian regarding: the historical points, exam findings, and any diagnostic results supporting the discharge/admit diagnosis, lab results, radiology results, the need for outpatient follow up, a family practitioner. 06/19 21:07 Order name: Urine Microscopic Only; Complete Time: 21:32 cp 06/19 21:32 Interpretation: Normal except: UWBC 5-10; SQEPI 5-10; AMORPH 2+. cp 06/19 21:08 Order name: Urine Dipstick--Ancillary (enter results); Complete Time: 21:32 ar5 06/19 21:32 Interpretation: Normal except: UESTR 1+. cp 06/19 20:55 Order name: XRAY Lumbar Spine (3 Views) cp 06/19 21:08 Order name: Urine --Ancillary (enter results); Complete Time: 21:32 ar5 06/19 21:32 Order name: Urine Culture EDCT 06/19 20:55 Order name: Urine Dipstick-Ancillary (obtain specimen); Complete Time: 21:09 cp 06/19 20:55 Order name: Urine Test (obtain specimen); Complete Time: 21:09 cp Administered Medications: 22:00 Drug: TORadol 60 mg Route: IM; Site: right gluteus; jb4 22:00 Follow up: Response: Medication administered at discharge. jb4 Disposition: 06/20 06:03 Co-signature as Attending Physician, Denys Singer MD I agree with the assessment and tw4 plan of care. Disposition: 06/19/19 21:34 Discharged to Home. Impression: Low back pain. - Condition is Stable. - Discharge Instructions: Back Pain, Adult, Back Exercises. - Prescriptions for Naprosyn 500 mg Oral Tablet - take 1 tablet by ORAL route 2 times per day take with food; 20 tablet. Cyclobenzaprine 10 mg Oral Tablet - take 1 tablet by ORAL route every 8 hours As needed no driving while taking medication; 15 tablet. - Medication Reconciliation Form, Thank You Letter, Antibiotic Education, Prescription Opioid Use form. - Follow up: Private Physician; When: 2 - 3 days; Reason: Recheck today's complaints. - Problem is new. - Symptoms have improved. Signatures: Dispatcher [employer] EDMS Juan A Sánchez PA PA cp Lauri Okeefe RN RN jb4 Denys Singer MD MD tw4 Corrections: (The following items were deleted from the chart) 06/19 22:05 21:34 06/19/2019 21:34 Discharged to Home. Impression: Low back pain. Condition is jb4 Stable. Forms are Medication Reconciliation Form, Thank You Letter, Antibiotic Education, Prescription Opioid Use. Follow up: Private Physician; When: 2 - 3 days; Reason: Recheck today's complaints. Problem is new. Symptoms have improved. cp
[2019-06-19] MEDS ORDERED: KETOROLAC 30 MG/ML INJ ONE (21:46)
[2019-06-20 01:41] VITALS: TEMP 98.8
[2019-06-20 01:42] VITALS: BP 111/65; O2SAT 100
--- NOTE | 2019-06-20 08:50 | RAD REPORT ---
EXAM DESCRIPTION: RAD - Lumbar Spine 3 Views - 06/19/2019 9:27 pm CLINICAL HISTORY: Severe back pain COMPARISON: None. FINDINGS: A three-view lumbar spine examination was performed. Lumbar bodies are normal in height an d normal in AP alignment. There is left convex rotoscoliosis with the apex at L2. There is a slight r otatory component. No lateral subluxations. No fracture or acute bony process seen. No significant di sc space narrowing seen. No pars defects identified. IMPRESSION: Left convex rotoscoliosis without acute disc or bone finding suspected. Concerns for disc herniation, central canal abnormality or occult bone process can be addressed with follow-up outpatient MRI imaging of the lumbar spine.
== END 2019-06-19 22:05 | disposition home or self-care (01) ==
LOC: ER 20:37
DX: M54.5 Low back pain (principal); J45.909 Unspecified asthma, uncomplicated; Z88.1 Allergy status to other antibiotic agents; Z88.3 Allergy status to other anti-infective agents
CPT/HCPCS: 72100; 81003; 81015; 81025; 87086; 87088; 96372; 99284

== ENCOUNTER 2019-07-04 16:25 | Inpatient (IN) | payer OTHER ==
[2019-07-04] MEDS ORDERED: LEVALBUTEROL 1.25 MG/3 ML NEB ONE (16:42)
[2019-07-04] MEDS ORDERED: NA CHLORIDE 0.9% 1,000 ML ONE ×3 (16:42→23:59)
[2019-07-04] MEDS ORDERED: MORPHINE 4 MG/ML SYR ONE ×2 (18:42→19:33)
[2019-07-04] MEDS ORDERED: ONDANSETRON 4 MG/2 ML VIAL ONE ×2 (18:42→19:33)
--- NOTE | 2019-07-04 19:04 | ER ---
Nurse's Notes [facility] Name: Adelaide Trinidad Age: 19 yrs Sex: Female : 2000 Arrival Date: 07/04/2019 Time: 16:29 Bed 8 Private MD: Diagnosis: Lactic Acidosis;Unspecified asthma with (acute) exacerbation Presentation: 07/04 16:30 Presenting complaint: EMS states: Pt reports productive cough x 1 week and increased ph use of rescue inhaler, had coughing episode at work which led to asthma attack, used rescue inhaler x 3 w/ no relief of symptoms, pt pale and diaphoretic on scene, c/o breathing difficulty and numbness to hands and legs, Spo2 98% RA, wheezing an all lung topete. Transition of care: patient was not received from another setting of care. Onset of symptoms was July 04, 2019. Risk Assessment: Do you want to hurt yourself or someone else? Patient reports no desire to harm self or others. Initial Sepsis Screen: Does the patient meet any 2 criteria? No. Patient's initial sepsis screen is negative. Does the patient have a suspected source of infection? Yes: Productive cough/pneumonia. Care prior to arrival: Medication(s) given: Albuterol Neb x 2, Atrovent Neb x 2, solu-medrol 125 mg IVP IV initiated. 22 GA, in the right hand, Oxygen administered. via a nebulizer mask. 16:30 Method Of Arrival: EMS: [facility] ph 16:38 Acuity: LUIZ 3 ph INFORMATION SECURITY ASSOCIATE: 16:33 LMP 06/24/2019 ph Historical: - Allergies: 16:36 Bactrim; ph 16:36 Doxycycline; ph 16:36 Zithromax; ph - Home Meds: 16:36 Albuterol Inhl [Active]; NuvaRing vaginal vaginal [Active]; ph - PMHx: 16:36 Anxiety; Asthma; Depression; HYPOGLYCEMIA; scoliosis; ph - Immunization history:: Adult Immunizations unknown. - Social history:: Smoking status: Patient/guardian denies using tobacco. - Ebola Screening: : No symptoms or risks identified at this time. - Family history:: not pertinent. - Hospitalizations: : No recent hospitalization is reported. Screenin:36 Abuse screen: Denies threats or abuse. Denies injuries from another. Nutritional ph screening: No deficits noted. Tuberculosis screening: No symptoms or risk factors identified. Fall Risk None identified. Assessment: 16:51 General: Appears in no apparent distress. comfortable, obese, Behavior is calm, ph cooperative, appropriate for age, Denies fever, chills. Pain: Complains of pain in chest. Neuro: Level of Consciousness is awake, alert, obeys commands, Oriented to person, place, time, situation, Reports dizziness. Cardiovascular: Capillary refill < 3 seconds in bilateral fingers Patient's skin is warm and dry. Respiratory: Reports shortness of breath at rest cough that is productive, pain with cough pain with respiration Airway is patent Respiratory effort is even, unlabored, Respiratory pattern is regular, symmetrical, Breath sounds with wheezes bilaterally. GI: Patient currently denies diarrhea, nausea, vomiting. Derm: Skin is intact, Skin is pink, warm \T\ dry. 17:13 Reassessment: Patient appears in no apparent distress at this time. Patient and/or ph family updated on plan of care and expected duration. Pain level reassessed. Patient is alert, oriented x 3, equal unlabored respirations, skin warm/dry/pink. 17:35 Reassessment: Patient appears in no apparent distress at this time. Patient and/or ph family updated on plan of care and expected duration. Pain level reassessed. Patient is alert, oriented x 3, equal unlabored respirations, skin warm/dry/pink. Pt's HR noted to have increased to 155, pt reports palpitations and chest pain, ERP notified, EKG preformed and given to provider. 19:40 Reassessment: Patient and/or family updated on plan of care and expected duration. Pain tl1 level reassessed. Patient is alert, oriented x 3, equal unlabored respirations, skin warm/dry/pink. Patient states feeling better. Patient states symptoms have improved. Respiratory: Airway is patent Trachea midline Respiratory effort is even, unlabored, Respiratory pattern is regular, symmetrical, Breath sounds are clear bilaterally. 23:01 Reassessment: pt ambulated to restroom, no SOB reported. pt given PO fluids as ak1 requested. pt informed of possible admission. Vital Signs: 16:33 BP 134 / 78; Pulse 122; Resp 20; Temp 97.9; Pulse Ox 100% ; Weight 74.84 kg; Height 4 ph ft. 11 in. (149.86 cm); Pain 8/10; 17:35 Pulse 155; Pulse Ox 100% on R/A; ph 18:11 BP 108 / 51; Pulse 141; Resp 20; Pulse Ox 98% on R/A; ph 18:45 BP 123 / 71; Pulse 134; Resp 18; Pulse Ox 99% on R/A; ph 19:39 BP 93 / 59; Pulse 133; Resp 20; Pulse Ox 97% on R/A; Pain 6/10; tl1 21:25 Pulse 123; Resp 20; Temp 98.9(O); Pulse Ox 100% on R/A; tl1 22:01 BP 104 / 64; Pulse 133; Resp 22; Pulse Ox 100% on R/A; tl1 07/05 00:58 BP 110 / 59; Pulse 105; Resp 18; Pulse Ox 100% on R/A; tl1 02:34 Pulse 92; Resp 18; Pulse Ox 99% on R/A; ak1 04:24 BP 92 / 50; Pulse 89; Resp 17; Temp 98.8(O); Pulse Ox 97% on R/A; Pain 0/10; tl1 07/04 16:33 Body Mass Index 33.33 (74.84 kg, 149.86 cm) ph ED Course: 07/04 16:29 Patient arrived in ED. ss 16:30 Lainey Guzmán, RN is Primary Nurse. ph 16:30 Steven Arita MD is Attending Physician. rn 16:36 Patient has correct armband on for positive identification. Placed in gown. Bed in low ph position. Call light in reach. Side rails up X 1. Pulse ox on. NIBP on. Door closed. Noise minimized. Warm blanket given. Head of bed elevated. 16:37 Arm band placed on Patient placed in an exam room. ph 16:38 Triage completed. ph 16:54 X-ray completed. Portable x-ray completed in exam room. Patient tolerated procedure mh1 well. 16:54 XRAY Chest (1 view) In Process Unspecified. EDMS 17:12 No provider procedures requiring assistance completed. Maintain EMS IV. Dressing ph intact. Site clean \T\ dry. Gauge \T\ site: 22 R hand. Flushed right hand with 5 ml normal saline. 18:11 Inserted saline lock: 22 gauge in right antecubital area, using aseptic technique. ph Blood collected. 18:29 Inserted saline lock: 22 gauge in left antecubital area, using aseptic technique. Blood ss collected. 22:15 Attending Physician role handed off by Steven Arita MD gs 22:15 Clayton Magallon MD is Attending Physician. gs 23:28 Notified ED physician of a critical lab result(s). lactate of 7.8. fc 07/05 00:28 CT Chest, Abdomen, Pelvis - W/Contrast In Process Unspecified. EDMS 00:45 Inserted 18 gauge 10 cm midline to right upper basilic vein on first attempt. Line with fc good blood return and flushes well. 02:33 Repeat lab(s) drawn. by me, sent to lab. ak1 03:09 Assisted to bathroom. tl1 03:25 Norman Ray DO is Hospitalizing Provider. 04:25 Patient admitted, IV remains in place. tl1 Administered Medications: Discontinued: Zosyn 3.375 grams IVPB once over 60 mins; (mix in NS 100 mL) 07/04 16:50 Drug: NS 0.9% 1000 ml Route: IV; Rate: 1000 ml; Site: right hand; ph 21:26 Follow up: IV Status: Completed infusion; IV Intake: 1000ml tl1 17:13 Drug: Xopenex (3) 1.25 mg Route: Inhalation; ph 19:05 Follow up: Response: No adverse reaction ph 18:50 Drug: Zofran 4 mg Route: IVP; Site: left antecubital; ph 19:06 Follow up: Response: No adverse reaction ph 18:52 Drug: morphine 4 mg Route: IVP; Site: left antecubital; ph 19:06 Follow up: Response: No adverse reaction; Pain is decreased; RASS: Drowsy (-1) ph 19:11 Drug: NS 0.9% 1000 ml Route: IV; Rate: 1 bolus; Site: left antecubital; ph 22:02 Follow up: IV Status: Completed infusion; IV Intake: 1000ml tl1 19:35 Drug: morphine 4 mg Route: IVP; Infused Over: 2 mins; Site: left antecubital; tl1 21:26 Follow up: Response: No adverse reaction; Marked relief of symptoms; Pain is decreased; tl1 RASS: Alert and Calm (0) 19:35 Drug: Zofran 4 mg Route: IVP; Infused Over: 2 mins; Site: left antecubital; tl1 21:26 Follow up: Response: No adverse reaction; No change in condition; Nausea is decreased tl1 07/05 00:28 Drug: NS 0.9% 1000 ml Route: IV; Rate: 1 bolus; Site: left antecubital; tl1 02:33 Follow up: IV Status: Completed infusion; IV Intake: 1000ml ak1 00:28 Drug: Zosyn 3.375 grams Route: IVPB; Infused Over: 60 mins; Site: left antecubital; tl1 01:00 Follow up: IV Status: Completed infusion tl1 00:31 Drug: predniSONE 40 mg Route: PO; tl1 02:33 Follow up: Response: No adverse reaction ak1 00:56 Drug: NS 0.9% 1000 ml Route: IV; Rate: 1 bolus; Site: right upper arm; tl1 02:32 Follow up: IV Status: Completed infusion; IV Intake: 1000ml ak1 02:50 Drug: TORadol - Ketorolac 15 mg Route: IVP; Infused Over: 2 mins; Site: right upper arm;tl1 03:33 Follow up: Response: No adverse reaction; Marked relief of symptoms; Pain is decreased tl1 03:32 Drug: NS 0.9% 1000 ml Route: IV; Rate: 150 ml/hr; Site: right upper arm; tl1 04:23 Follow up: IV Status: Infusion continued upon admission tl1 Intake: 07/04 21:26 IV: 1000ml; Total: 1000ml. tl1 22:02 IV: 1000ml; Total: 2000ml. tl1 07/05 02:32 IV: 1000ml; Total: 3000ml. ak1 02:33 IV: 1000ml; Total: 4000ml. ak1 Outcome: 07/04 19:03 Discharge ordered by . aiyana 07/05 03:26 Decision to Hospitalize by Provider. 04:25 Admitted to Tele accompanied by tech, via wheelchair, with chart, Report called to tl1 Brian SEBASITAN 04:25 Condition: stable 04:25 Instructed on the need for admit. 04:41 Patient left the ED. tl1 Signatures: Dispatcher [employer] EDMS Diane Dominguez Edilia Walton RN RN fc Nieto, Roman, MD MD rn Smirch, Rebecca, RN RN ss Porsche Enamorado RN RN tl1 Kathie Cotto RN RN ak1 Lainey Guzmán RN RN Clayton Magallon MD MD Corrections: (The following items were deleted from the chart) 07/04 19:06 19:05 Response: No adverse reaction; Pain is decreased ph ph
--- NOTE | 2019-07-04 19:05 | EDPHYS ---
Physician Documentation [facility] Name: Adelaide Trinidad Age: 19 yrs Sex: Female : 2000 Arrival Date: 07/04/2019 Time: 16:29 Bed 8 Private MD: ED Physician Clayton Magallon HPI: 07/04 18:48 This 19 yrs old Female presents to ER via EMS with complaints of Asthma rn Exacerbation. 18:48 Onset: The symptoms/episode began/occurred 1 week(s) ago. Modifying factors: The rn symptoms are alleviated by inhaler, the symptoms are aggravated by nothing. Associated signs and symptoms: Pertinent negatives: choking, fever. Severity of symptoms: At their worst the symptoms were moderate in the emergency department the symptoms have improved. The patient has experienced similar episodes in the past. Reports 1 week of slowly worsening sob, worse today, using her inhaler several times, also given 3 albuterol and atrovent by EMS in addition to solumedrol. States feels better. . 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 - Social history:: Smoking status: Patient/guardian denies using tobacco. - Ebola Screening: : No symptoms or risks identified at this time. - Family history:: not pertinent. - Hospitalizations: : No recent hospitalization is reported. ROS: 18:48 Constitutional: Negative for fever, chills, and weight loss, Eyes: Negative for injury, rn pain, redness, and discharge, Neck: Negative for injury, pain, and swelling, Cardiovascular: + palpitations Respiratory: + sob and cough Abdomen/GI: Negative for abdominal pain, nausea, vomiting, diarrhea, and constipation, MS/Extremity: Negative for injury and deformity, Skin: Negative for injury, rash, and discoloration, Neuro: Negative for headache, weakness, numbness, tingling, and seizure. Exam: 18:48 Constitutional: This is a well developed, well nourished patient who is awake, alert rn Head/Face: Normocephalic, atraumatic. Eyes: Pupils equal round and reactive to light, extra-ocular motions intact. Lids and lashes normal. Conjunctiva and sclera are non-icteric and not injected. Cornea within normal limits. Periorbital areas with no swelling, redness, or edema. ENT: no stridor Cardiovascular: Tachycardic, regular, no murmur Respiratory: + bilateral inspiratory and exp wheezing, worse on right lower lung field, + mild tachypnea Abdomen/GI: soft, non-tender MS/ Extremity: Pulses equal, no cyanosis. Neurovascular intact. Full, normal range of motion. Equal circumference. Neuro: Awake and alert, GCS 15, oriented to person, place, time, and situation. Cranial nerves II-XII grossly intact. Motor strength 5/5 in all extremities. Sensory grossly intact. Cerebellar exam normal. Vital Signs: 16:33 BP 134 / 78; Pulse 122; Resp 20; Temp 97.9; Pulse Ox 100% ; Weight 74.84 kg; Height 4 ph ft. 11 in. (149.86 cm); Pain 8/10; 17:35 Pulse 155; Pulse Ox 100% on R/A; ph 18:11 BP 108 / 51; Pulse 141; Resp 20; Pulse Ox 98% on R/A; ph 18:45 BP 123 / 71; Pulse 134; Resp 18; Pulse Ox 99% on R/A; ph 19:39 BP 93 / 59; Pulse 133; Resp 20; Pulse Ox 97% on R/A; Pain 6/10; tl1 21:25 Pulse 123; Resp 20; Temp 98.9(O); Pulse Ox 100% on R/A; tl1 22:01 BP 104 / 64; Pulse 133; Resp 22; Pulse Ox 100% on R/A; tl1 0908 00:58 BP 110 / 59; Pulse 105; Resp 18; Pulse Ox 100% on R/A; tl1 02:34 Pulse 92; Resp 18; Pulse Ox 99% on R/A; ak1 04:24 BP 92 / 50; Pulse 89; Resp 17; Temp 98.8(O); Pulse Ox 97% on R/A; Pain 0/10; tl1 07/04 16:33 Body Mass Index 33.33 (74.84 kg, 149.86 cm) ph MDM: 07/04 16:30 Patient medically screened. rn 19:00 Differential diagnosis: acute asthma. Data reviewed: vital signs, nurses notes, laborer rags test result(s), EKG, radiologic studies, plain films, and as a result, I will discharge patient. Counseling: I had a detailed discussion with the patient and/or guardian regarding: the historical points, exam findings, and any diagnostic results supporting the discharge/admit diagnosis, lab results, radiology results, the need for outpatient follow up, to return to the emergency department if symptoms worsen or persist or if there are any questions or concerns that arise at home. Response to treatment: the patient's symptoms have markedly improved after treatment, and as a result, I will discharge patient. Special discussion: I discussed with the patient/guardian in detail that at this point there is no indication for admission to the hospital. It is understood, however, that if the symptoms persist or worsen the patient needs to return immediately for re-evaluation. ED course: Pt improved, no longer wheezing, is tachycardic from her 3 albuterol at home and 3 albuterol from EMS, improving with fluids here. No oxygen requirement. Will dc home and instructed nursing to continue to observe HR until atleast < 120. Tachycardia expected after all those treatments. Pt states feels better. . 07/05 03:26 ED course: pt seen examined unexplained cp and tachycardia, lactate 7.8 dr hernandez wants gs more liters ns and repeat possible discharge repeat la 4.2 will admit. 07/04 22:15 Order name: Basic Metabolic Panel; Complete Time: 23:18 07/04 22:15 Order name: Blood Culture Adult (2) 07/04 22:15 Order name: CBC with Diff; Complete Time: 23:52 07/04 22:15 Order name: Procalcitonin; Complete Time: 23:45 07/04 22:15 Order name: Urine Microscopic Only; Complete Time: 23:18 07/04 22:15 Order name: Lactate; Complete Time: 23:45 07/04 22:15 Order name: D-Dimer; Complete Time: 23:18 07/04 23:19 Order name: ABG; Complete Time: 23:52 07/04 23:21 Order name: ETOH Level; Complete Time: 23:52 07/04 23:21 Order name: Osmolality, Serum; Complete Time: 00:23 07/04 23:21 Order name: Urine Drug Screen; Complete Time: 02:38 07/04 23:41 Order name: LFT's; Complete Time: 00:23 07/04 23:41 Order name: Lipase; Complete Time: 00:23 07/04 23:42 Order name: Acetaminophen; Complete Time: 00:23 07/04 16:31 Order name: XRAY Chest (1 view) rn 07/04 23:41 Order name: CT Chest, Abdomen, Pelvis - W/Contrast 07/04 23:47 Order name: Troponin (emerg Dept Use Only); Complete Time: 00:23 07/04 23:50 Order name: TSH 07/04 23:50 Order name: PT-INR; Complete Time: 00:23 07/04 23:50 Order name: Thyroid Stimulating Hormone; Complete Time: 00:23 EDCA 07/04 23:51 Order name: CBC Smear Scan; Complete Time: 23:52 EDCA 07/05 02:38 Order name: Lactate 07/05 02:58 Order name: Lactate Sepsis 2 HR Follow-up EDCA 07/04 16:31 Order name: IV Start; Complete Time: 16:38 rn 07/04 18:08 Order name: EKG - Nurse/Tech; Complete Time: 18:08 ph 07/04 22:15 Order name: Urine Test (obtain specimen); Complete Time: 22:55 07/04 22:15 Order name: Cardiac monitoring; Complete Time: 22:32 07/04 22:15 Order name: IV Saline Lock - Large Bore; Complete Time: 22:32 07/04 22:15 Order name: Labs collected and sent; Complete Time: 22:55 07/04 22:15 Order name: O2 Per Protocol; Complete Time: 22:32 07/04 22:15 Order name: O2 Sat Monitoring; Complete Time: 22:32 07/04 22:15 Order name: Urine Dipstick-Ancillary (obtain specimen); Complete Time: 22:55 gs Administered Medications: Discontinued: Zosyn 3.375 grams IVPB once over 60 mins; (mix in NS 100 mL) 07/04 16:50 Drug: NS 0.9% 1000 ml Route: IV; Rate: 1000 ml; Site: right hand; ph 21:26 Follow up: IV Status: Completed infusion; IV Intake: 1000ml tl1 17:13 Drug: Xopenex (3) 1.25 mg Route: Inhalation; ph 19:05 Follow up: Response: No adverse reaction ph 18:50 Drug: Zofran 4 mg Route: IVP; Site: left antecubital; ph 19:06 Follow up: Response: No adverse reaction ph 18:52 Drug: morphine 4 mg Route: IVP; Site: left antecubital; ph 19:06 Follow up: Response: No adverse reaction; Pain is decreased; RASS: Drowsy (-1) ph 19:11 Drug: NS 0.9% 1000 ml Route: IV; Rate: 1 bolus; Site: left antecubital; ph 22:02 Follow up: IV Status: Completed infusion; IV Intake: 1000ml tl1 19:35 Drug: morphine 4 mg Route: IVP; Infused Over: 2 mins; Site: left antecubital; tl1 21:26 Follow up: Response: No adverse reaction; Marked relief of symptoms; Pain is decreased; tl1 RASS: Alert and Calm (0) 19:35 Drug: Zofran 4 mg Route: IVP; Infused Over: 2 mins; Site: left antecubital; tl1 21:26 Follow up: Response: No adverse reaction; No change in condition; Nausea is decreased tl1 07/05 00:28 Drug: NS 0.9% 1000 ml Route: IV; Rate: 1 bolus; Site: left antecubital; tl1 02:33 Follow up: IV Status: Completed infusion; IV Intake: 1000ml ak1 00:28 Drug: Zosyn 3.375 grams Route: IVPB; Infused Over: 60 mins; Site: left antecubital; tl1 01:00 Follow up: IV Status: Completed infusion tl1 00:31 Drug: predniSONE 40 mg Route: PO; tl1 02:33 Follow up: Response: No adverse reaction ak1 00:56 Drug: NS 0.9% 1000 ml Route: IV; Rate: 1 bolus; Site: right upper arm; tl1 02:32 Follow up: IV Status: Completed infusion; IV Intake: 1000ml ak1 02:50 Drug: TORadol - Ketorolac 15 mg Route: IVP; Infused Over: 2 mins; Site: right upper arm;tl1 03:33 Follow up: Response: No adverse reaction; Marked relief of symptoms; Pain is decreased tl1 03:32 Drug: NS 0.9% 1000 ml Route: IV; Rate: 150 ml/hr; Site: right upper arm; tl1 04:23 Follow up: IV Status: Infusion continued upon admission tl1 Disposition: 07/05/19 03:26 Hospitalization ordered by Norman Hernandez for Inpatient Admission. Preliminary diagnosis are Lactic Acidosis, Unspecified asthma with (acute) exacerbation. - Bed requested for Telemetry/MedSurg (Inpatient). - Status is Inpatient Admission. tl1 - Condition is Stable. - Problem is new. - Symptoms have improved. UTI on Admission? No Signatures: Dispatcher [employer] EDCA Steven Arita MD MD rn Lasagna, JAZ Morrell RN tl1 Lainey Guzmán RN RN ph Garcia, Cindy, RN RN Clayton Magallon MD MD Kirti, Kathie RN ak1 Corrections: (The following items were deleted from the chart) 07/04 23:42 19:03 07/04/2019 19:03 Discharged to Home. Impression: Asthma; Pneumonia. Condition is gs Stable. Forms are Medication Reconciliation Form, Thank You Letter, Antibiotic Education, Prescription Opioid Use. Follow up: Private Physician; When: As needed; Reason: Recheck today's complaints, Re-evaluation by your physician. Problem is new. Symptoms have improved. rn 07/05 02:31 00:41 LACTATE+C.LAB.BRZ ordered. [facility] 03:28 03:26 Hospitalization Ordered by Norman Hernandez DO for Inpatient Admission. Preliminary diagnosis is Lactic Acidosis. Bed requested for Telemetry/MedSurg (Inpatient). Status is Inpatient Admission. Condition is Stable. Problem is new. Symptoms have improved. UTI on Admission? No. gs 03:50 03:28 07/05/2019 03:26 Hospitalization Ordered by Norman Hernandez DO for Inpatient cg Admission. Preliminary diagnosis is Lactic Acidosis; Unspecified asthma with (acute) exacerbation. Bed requested for Telemetry/MedSurg (Inpatient). Status is Inpatient Admission. Condition is Stable. Problem is new. Symptoms have improved. UTI on Admission? No. gs 04:41 03:50 07/05/2019 03:26 Hospitalization Ordered by Norman Hernandez DO for Inpatient tl1 Admission. Preliminary diagnosis is Lactic Acidosis; Unspecified asthma with (acute) exacerbation. Bed requested for Telemetry/MedSurg (Inpatient). Status is Inpatient Admission. Condition is Stable. Problem is new. Symptoms have improved. UTI on Admission? No. cg
[2019-07-04 22:53] LABS: Absolute Lymphocytes (CBC) 0.3 K/uL (0.7-4.9); Basophils % 0.1 % (0-1.3); Hematocrit 35.4 % (36.0-45.0); Lymphocytes % 3.6 % (15.3-44.8); MPV 9.1 fL (7.6-11.3); RBC Red Blood Cell Count 3.73 M/uL (3.86-4.86)
[2019-07-04 23:10] LABS: Potassium 3.5 mmol/L (3.5-5.1)
[2019-07-04 23:11] LABS: Urine Bacteria <20 /HPF (<20); Urine Culture Reflex Order NOT NEEDED; Urine RBC <5 /HPF (NONE SEEN)
[2019-07-04 23:40] LABS: Arterial Blood Carboxyhemoglob 0.5 % (0-1.5); Blood O2 Saturation 97.3 % (92-98.5)
[2019-07-04 23:50] LABS: Blood Morphology Comment NOT SEEN (NOT SEEN); Platelet Estimate ADEQ; Urine White Blood Cell Casts OK
[2019-07-04 23:56] LABS: Protime INR 0.98
[2019-07-04] MEDS ORDERED: PIPER/TAZO/NS 3.375gm 3.375 GM/100 ML BAG ONE (23:59)
[2019-07-05 00:12] LABS: ALT/SGPT 18 U/L (12-78); AST/SGOT 8 U/L (15-37); Albumin 3.4 g/dL (3.4-5.0); Alkaline Phosphatase 55 U/L (45-117); Bilirubin Direct < 0.1 mg/dL (0-0.2); Bilirubin Total 0.2 mg/dL (0.2-1.0); Lipase 66 U/L (73-393); Protein, Total 6.9 g/dL (6.4-8.2)
[2019-07-05] MEDS ORDERED: predniSONE 20 MG TAB ONE (00:31)
[2019-07-05 00:43] LABS: Barbiturates NEGATIVE (NEGATIVE); Benzodiazepines NEGATIVE (NEGATIVE); Cocaine NEGATIVE (NEGATIVE); METHAMPHETAM NEGATIVE (NEGATIVE); Methadone NEGATIVE (NEGATIVE); Opiates POSITIVE (NEGATIVE); Phencyclidine NEGATIVE (NEGATIVE); THC Cannibis NEGATIVE (NEGATIVE)
[2019-07-05] MEDS ORDERED: NA CHLORIDE 0.9% 1,000 ML ONE ×2 (00:53→03:31)
[2019-07-05] MEDS ORDERED: KETOROLAC 30 MG/ML INJ ONE (02:50)
--- NOTE | 2019-07-05 03:43 | P.HP ---
Certification for Inpatient Patient admitted to: Observation With expected LOS: <2 Midnights Patient will require the following post-hospital care: None Practitioner: I am a practitioner with admitting privileges, knowledge of patient current condition, hospital course, and medical plan of care. Services: Services provided to patient in accordance with Admission requirements found in Title 42 Section 412.3 of the Code of Federal Regulations Patient History Date of Service: 07/05/19 Primary Care Provider: Dr. Green Reason for admission: Cough, SOB History of Present Illness: 19 yo CF presented to the ER with cough and shortness of breath. Over the last week, she has had cough with shortness of breath. Today at work she had a severe coughing episode. She also reported being very weak and sick. She was seen by her PCP this past week and given medication for bronchitis. She was given prednisone but she did not take the medication. She had some mild nausea and subjective fever. She came to the ER for further evaluation. In the ER she was found to be very tachynic and tachycardic. She was given Solumedrol by EMS. She was found to have an elevated lactic acid of 7.8. Procalcitonin was negative. WBC-8.2, Hemoglobin 11.7, NA-145, K-3.5, BUN 7, Creatinine 1.3, GFR 52. D dimer negative. CXR unremarkable. CT chest/abdomen was unremarkable. CXR negative. test pending. She was given IV fluids in the ER with some mild improvement. Her tachycardia improved. She was admitted for observation. When I saw the patient she was not in any respiratory distress. She appeared improved from the time she was seen earlier in the ER. She had be given Zosyn in the ER but this was stopped due to itching upon initiation of medication. No sick contacts noted. She is not taking maintenance medication for Asthma. She has seen Pulmonary in the past. Patient appeared dehydrated. Allergies azithromycin [From Zithromax] Adverse Reaction (Verified 04/10/18 21:12) Anaphylaxis doxycycline Adverse Reaction (Verified 04/10/18 21:13) Anaphylaxis Home medications list reviewed: Yes Home Medications: Albuterol Sulfate [Proair Hfa] 1 in IN PRN 04/10/18 Fluoxetine HCl [Prozac*] 10 mg PO BEDTIME 04/10/18 Montelukast [Singulair*] 10 mg PO BEDTIME 04/10/18 buPROPion HCl [Wellbutrin*] 300 mg PO BEDTIME 04/10/18 Hydrocodone/Acetaminophen [[place] 5-325 Tablet] 1 each PO Q4HP PRN #20 tablet - Past Medical/Surgical History Diabetic: No -: Anxiety -: Asthma -: Season allergies -: Appendectomy Psychosocial/ Personal History: She is single. She has no children - Family History Family History: Reviewed- Non-Contributory - Family History Father -: Lung disease Mother -: Diabetes - Social History Smoking Status: Never smoker Alcohol use: No CD- Drugs: No Caffeine use: Yes Place of Residence: Home Review of Systems General: Fever, Weakness, As per HPI Eyes: Unremarkable ENT: Unremarkable Respiratory: Cough, Shortness of Breath, Wheezing, As per HPI Cardiovascular: Unremarkable Gastrointestinal: Nausea, As per HPI Genitourinary: Unremarkable Musculoskeletal: Unremarkable Integumentary: Unremarkable Neurological: Unremarkable Lymphatics: Unremarkable Physical Examination - Physical Exam General: Alert, In no apparent distress, Oriented x3, Cooperative HEENT: Atraumatic, Normocephalic, PERRLA, Mucous membr. moist/pink Neck: Supple, No Thyromegaly Respiratory: Expiratory wheezes (minmal wheezing bilateral) Cardiovascular: Abnormal pulses (mild tachycardia) Gastrointestinal: Normal bowel sounds, Soft and benign, Non-distended, No ascites, No tenderness, No masses, No rebound, No guarding Musculoskeletal: No erythema, No tenderness, No warmth Integumentary: No tenderness/swelling, No erythema, No warmth, No cyanosis Neurological: Normal speech, Normal strength at 5/5 x4 extr, Normal tone, Normal affect - Studies Laboratory Data (last 24 hrs) 07/04/19 22:36: PT 11.6, INR 0.98 07/04/19 22:36: Total Bilirubin 0.2, AST 8 L, ALT 18, Alkaline Phosphatase 55, Lipase 66 L 07/04/19 22:36: WBC 8.2, Hgb 11.7 L, Hct 35.4 L, Plt Count 222 07/04/19 22:36: Sodium 145, Potassium 3.5, BUN 7, Creatinine 1.30, Glucose 185 H Assessment and Plan - Plan Impression: Shortness of breath secondary to Asthma exacerbation Acute renal injury secondary to Dehydration with respiratory acidosis GERD Plan: Shortness of breath secondary to Asthma exacerbation: Patient will be admitted for Observation. Will start Prednisone. Will provide medication for Asthma. Patient will need maintenance medication at discharge. Will provide DVT prophylaxis-Lovenox. Will continue with IV fluid hydration. Will monitor and recheck Lactate. If normal by this afternoon then anticipate discharge later today or tomorrow with clinical improvement. Will discuss plan of care with Daytime hospitalist-Dr. Taveras who will take care of the patient in the Hospital. Acute renal injury secondary to Dehydration with respiratory acidosis: Patient was given multiple liters of IV fluids in the ER with improvement of Lactate and tachycardia. Will recheck Lactate later. Will continue with IV fluids. Encourage oral intake. Continue with plan as above. GERD: Patient have mild nausea. Will treat with Pepcid. This may be continued at discharge. Discharge Plan: Home Plan to discharge in: 24 Hours - Advance Directives Does patient have a Living Will: No Does patient have a Durable POA for Healthcare: No - Code Status/Comfort Care Code Status Assessed: Yes (patient is full code) Time Spent Managing Pts Care (In Minutes): 55
[2019-07-05] MEDS ORDERED: IPRATROPIUM BROM 0.5MG/2.5ML ONE (04:10)
[2019-07-05] MEDS ORDERED: ALBUTEROL 2.5 MG/3 ML NEB SOL ONE (04:10)
[2019-07-05] MEDS ORDERED: ALBUTEROL 2.5 MG/3 ML NEB SOL NEB PRN (04:24)
[2019-07-05] MEDS ORDERED: IPRATROPIUM BROM 0.5MG/2.5ML NEB PRN (04:24)
[2019-07-05] MEDS ORDERED: ONDANSETRON 4 MG/2 ML VIAL IV PRN (04:24)
[2019-07-05 04:57] VITALS: BMI 35.2
[2019-07-05] MEDS: ACETAMINOPHEN 500 MG TAB PO PRN ×3 (05:16→15:20)
[2019-07-05] MEDS: NACHLORIDE 0.45% 1,000 ML IV SCH ×2 (05:16→15:19)
[2019-07-05 06:00] LABS: Specific Gravity 1.025 (1.005-1.030); Urine Appearance CLEAR; Urine Bilirubin NEGATIVE (NEG); Urine Blood NEGATIVE (NEG); Urine Color YELLOW; Urine Glucose 1+ (NEG); Urine Protein NEGATIVE (NEG); Urine Specific Gravity 1.025 (1.005-1.030); Urine Urobilinogen 0.2 mg/dL (0.2-1.0); Urine pH 6.5 (5.0-7.0)
[2019-07-05 06:01] LABS: Urine Microscopic Reflex ORDER UMIC
[2019-07-05 07:41] LABS: Urine Bacteria <20 /HPF (<20); Urine Culture Reflex Order REFLEXED; Urine RBC <5 /HPF (NONE SEEN)
[2019-07-05] MEDS: ARFORMOTEROL TARTRATE 15 MCG/2 ML VIAL.NEB NEB SCH ×2 (08:20→20:35)
--- NOTE | 2019-07-05 09:32 | EKG ---
Test Date: 2019-07-04 Test Time: 17:38:49 Research Neuropsychologist: MEASUREMENT RESULTS: Intervals: Rate: 143 AK: 122 QRSD: 74 QT: 370 QTc: 571 [place]: P: 101 AK: 122 QRS: 93 T: 125 INTERPRETIVE STATEMENTS: Sinus tachycardia Lateral infarct, age undetermined, possibly due to arm lead reversal Abnormal ECG Compared to ECG 05/05/2019 21:56:30 Myocardial infarct finding now present Sinus rhythm no longer present Sinus arrhythmia no longer present T-wave abnormality no longer present Electronically Signed On 07-05-19 09:32:11 CDT by George Agudelo
[2019-07-05] MEDS: CETIRIZINE HCL 5 MG TABLET PO SCH (09:44)
[2019-07-05] MEDS: ENOXAPARIN 40 MG/0.4 ML SQ SCH (09:45)
[2019-07-05] MEDS: predniSONE 20 MG TAB PO SCH ×2 (09:45→21:45)
[2019-07-05] MEDS: FAMOTIDINE 20 MG TAB PO SCH ×2 (09:45→21:45)
[2019-07-05] MEDS ORDERED: LEVALBUTEROL 1.25 MG/3 ML NEB NEB PRN (09:49)
--- NOTE | 2019-07-05 15:41 | PN ---
Date of Progress Note: 07/05/2019 Subjective: Patient is seen and examined. Chart reviewed and case discussed with RN. The patient i s still having minimal wheezing. The patient became very tachypneic and dyspneic with minimal exerti on, unable to ambulate around the hunter with assistance. Medications: List reviewed. Physical Examination: Vital Signs: Temperature 99.3, heart rate 81, blood pressure 99/56, respirations 16, O2 98% on room air. General: Awake, alert, oriented x3. Obese female in some mild respiratory distress. CV: S1, S2. Sinus tachycardia. Peripheral pulses present. Respiratory: Patient is tachypneic with use of accessory muscles. Minimal wheezing heard. Otherwis e, no rhonchi or crackles. Gastrointestinal: Abdomen is soft, nontender, nondistended. Positive bow el sounds. Extremities: No clubbing, cyanosis, or edema. Neuro: Cranial nerves 2 through 12 intact grossly. No focal neurological deficit. Laboratory Data: Specific gravity 1.025, serum osmolality 293, lactate 4.5. Troponin less than 0.02 . TSH 3.23. Blood cultures pending. Urine culture also pending. Assessment/plan: 1.Shortness of breath secondary to asthma exacerbation, acute. We will continue on breathing treatm ents. We will switch to Xopenex due to tachycardia. Continue prednisone. The patient will need thomas ntenance medications. She seems to have moderate persistent asthma. She has not had her allergies c hecked due environmental factors. The patient does take Singulair at home. We will have RT check pe ak flow. The patient was unable to tolerate much ambulation, becoming very tachypneic and dyspneic. We will continue with treatment for now. 2.Acute kidney injury secondary to dehydration and respiratory acidosis. Lactate still elevated, we will repeat. Continue with IV fluids. 3.Gastroesophageal reflux disease without esophagitis. Nausea is improving. We will continue Pepci d. 4.Obesity BMI 35. Plan: We will adjust nebulizer treatment, add maintenance inhaler. Check peak flow. Likely discharg e in the next 24 hours depending on clinical response. SA/MODL Voice ID: [id number] Report ID: [id number]
[2019-07-05] MEDS ORDERED: KETOROLAC 30 MG/ML INJ IV ONE (17:00)
[2019-07-05] MEDS: DIPHENHYDRAMINE 25 MG TAB/CAP PO PRN (17:46)
[2019-07-05] MEDS ORDERED: BUDESONIDE 0.5 MG/2 ML NEB IH SCH (20:00)
[2019-07-05] MEDS ORDERED: FLUTICASONE 110 MCG/PUFF 12 GM INH IH SCH ×2 (21:00)
[2019-07-05] MEDS: TRAMADOL HCL 50 MG TAB PO PRN (21:45)
[2019-07-06] MEDS: NACHLORIDE 0.45% 1,000 ML IV SCH ×2 (02:47→10:24)
[2019-07-06] MEDS: TRAMADOL HCL 50 MG TAB PO PRN ×3 (05:38→21:55)
[2019-07-06 06:06] LABS: Basophils % 0.2 % (0-1.3); Hematocrit 29.9 % (36.0-45.0); Lymphocytes % 8.5 % (15.3-44.8); MPV 9.8 fL (7.6-11.3); RBC Red Blood Cell Count 3.23 M/uL (3.86-4.86)
[2019-07-06 07:55] LABS: BUN Blood Urea Nitrogen 8 mg/dL (7-18); Bicarbonate 19 mmol/L (21-32); Glucose Level 124 mg/dL (74-106); Magnesium 2.1 mg/dL (1.8-2.4); Potassium 4.4 mmol/L (3.5-5.1); Sodium Level 144 mmol/L (136-145)
[2019-07-06] MEDS: ARFORMOTEROL TARTRATE 15 MCG/2 ML VIAL.NEB NEB SCH ×2 (07:55→20:00)
[2019-07-06] MEDS ORDERED: BUDESONIDE 0.5 MG/2 ML NEB IH SCH (08:00)
--- NOTE | 2019-07-06 08:03 | EKG ---
Test Date: 2019-07-05 Test Time: 14:55:08 Food Technology Teacher: MAURICE Willingham MEASUREMENT RESULTS: Intervals: Rate: 85 NV: 108 QRSD: 72 QT: 348 QTc: 414 [place]: P: -2 NV: 108 QRS: 65 T: -7 INTERPRETIVE STATEMENTS: Sinus rhythm with short NV Non specific T wave abnormality Abnormal ECG Compared to ECG 07/04/2019 17:38:49 Short NV interval now present T-wave abnormality now present Sinus tachycardia no longer present Myocardial infarct finding no longer present Electronically Signed On 07-06-19 08:03:08 CDT by George Agudelo
[2019-07-06] MEDS: CETIRIZINE HCL 5 MG TABLET PO SCH (08:06)
[2019-07-06] MEDS: FAMOTIDINE 20 MG TAB PO SCH ×2 (08:06→21:55)
[2019-07-06] MEDS: predniSONE 20 MG TAB PO SCH ×2 (08:06→21:55)
[2019-07-06] MEDS: ENOXAPARIN 40 MG/0.4 ML SQ SCH (08:07)
[2019-07-06] MEDS ORDERED: IPRATROPIUM BROM 0.5MG/2.5ML NEB PRN (10:15)
--- NOTE | 2019-07-06 12:20 | P.CNS ---
Date of Consult: 07/06/19 Primary Care Provider: Dr. Green Chief Complaint: Severe asthma History of Present Illness: Patient is 19 years of age with a history of poorly controlled asthma frequent exacerbations she has been using her a short-acting bronchodilator on a frequent basis I last saw her a year ago patient did not follow up apparently she has tried all inhalers with no relief still continues to have some shortness of breath prednisone does help somewhat Allergies azithromycin [From Zithromax] Adverse Reaction (Verified 04/10/18 21:12) Anaphylaxis doxycycline Adverse Reaction (Verified 04/10/18 21:13) Anaphylaxis piperacillin [From Zosyn] Adverse Reaction (Verified 07/05/19 15:40) Hives/Rash sulfamethoxazole [From Bactrim] Adverse Reaction (Verified 07/05/19 05:02) Hives tazobactam [From Zosyn] Adverse Reaction (Verified 07/05/19 15:40) Hives/Rash trimethoprim [From Bactrim] Adverse Reaction (Verified 07/05/19 05:02) Hives Home Medications: Albuterol Sulfate [Proair Hfa] 1 in IN PRN 04/10/18 - Past Medical/Surgical History Diabetic: No -: Anxiety -: Asthma -: Season allergies -: Appendectomy Psychosocial/ Personal History: She is single. She has no children - Family History Father Medical History: Lung disease Mother Medical History: Diabetes - Social History Smoking Status: Unknown if ever smoked Alcohol use: No CD- Drugs: No Caffeine use: Yes Place of Residence: Home Review of Systems 10-point ROS is otherwise unremarkable Physical Examination Temp Pulse Resp BP Pulse Ox 98.0 F 58 18 118/72 96 07/06/19 12:00 07/06/19 12:00 07/06/19 12:00 07/06/19 12:00 07/06/19 12:00 General: Alert, Oriented x3 HEENT: Atraumatic Neck: Supple Respiratory: Clear to auscultation bilaterally Cardiovascular: No edema, Regular rate/rhythm, Normal S1 S2 Gastrointestinal: Normal bowel sounds, Soft and benign - Problems (1) Severe asthma Current Visit: Yes Status: Acute Plan: Patient is 19 years of age has poorly controlled asthma will need to intensify treatment with inhaled steroids anticholinergics and long-acting beta agonists also consider using immune modulator therapy patient's peak flow was only 10 possible discharge tomorrow room-air saturation satisfactory on prednisone 10 mg twice a day for 10-14 days I will bring her a sample off a trailer Qualifiers: Asthma persistence: persistent Asthma complication type: with acute exacerbation Qualified Code(s): J45.51 - Severe persistent asthma with (acute ) exacerbation
[2019-07-06] MEDS: IPRATROPIUM BROM 0.5MG/2.5ML NEB SCH ×2 (13:55→20:00)
[2019-07-06] MEDS ORDERED: LEVALBUTEROL 1.25 MG/3 ML NEB NEB SCH (14:00)
[2019-07-06] MEDS ORDERED: LEVALBUTEROL 1.25 MG/3 ML NEB NEB PRN (14:27)
--- NOTE | 2019-07-06 16:51 | PN ---
Date of Progress Note: 07/06/2019 Subjective: Patient is seen and examined. Chart reviewed and case discussed with RN and Dr. Chi smith. Patient continues to have dyspnea upon exertion. Medications: List reviewed. Physical Examination: Vital Signs: Temperature 97.4, heart rate 55, blood pressure 117/69, respirations 20, O2 95% on room air. General: Awake, alert, oriented x3, in some mild distress. Obese female. CV: S1, S2. Sinus bradycardia. Peripheral pulses present. Respiratory: Diminished breath sounds. Minimal wheezing on expiration. Patient is slightly tachypn eic. No use of accessory muscles. Gastrointestinal: Abdomen is soft, nontender, nondistended. Positive bowel sounds. No guarding or rigidity. Extremities: No clubbing, cyanosis, or edema. Neurologic: Nonfocal. Laboratory Data: Sodium 144, potassium 4.4, chloride 117, CO2 of 19, BUN 8, creatinine 0.81, glucose 124, calcium 7.9, magnesium 2.1. Lactate 7.8, 4.5, 3.3, 3.1. WBC 12.1, H and H 10.3 and 29.9, plat elets 219, neutrophils 86%. Blood cultures, no growth to date. Urine culture, no growth. EKG sinus rhythm with short CA, nonspecific T-wave abnormality, rate of 85. Assessment And Plan: 1.Shortness of breath secondary to asthma exacerbation. 2.Acute asthma exacerbation. Continue with Xopenex. Add Atrovent. Continue with Zyrtec. Patient has moderate persistent asthma. We will continue with steroids. Consult Pulmonology. Patient constance nues to have significant dyspnea upon exertion, not on any oxygen at this time. Peak flow is less th an 10, not able to ambulate. Patient will need allergy testing as an outpatient. 3.Acute kidney injury secondary to dehydration and respiratory acidosis, improving. 4.Acidosis, improving. Lactate still elevated. We will continue with IV fluids and resuscitation. Recheck in a.m. 5.Gastroesophageal reflux disease without esophagitis, improved. 6.Obesity, BMI 35. Plan: Check peak flow. Discharge in the next 24 hours depending on clinical stability. Appreciate Pulmonology input. /CHELSEY Voice ID: [id number] Report ID: [id number]
[2019-07-06] MEDS: DIPHENHYDRAMINE 25 MG TAB/CAP PO PRN (21:55)
[2019-07-07] MEDS: IPRATROPIUM BROM 0.5MG/2.5ML NEB SCH ×4 (02:00→20:30)
[2019-07-07 05:17] LABS: Basophils % 0.1 % (0-1.3); Hematocrit 32.1 % (36.0-45.0); MPV 9.4 fL (7.6-11.3); RBC Red Blood Cell Count 3.48 M/uL (3.86-4.86)
[2019-07-07 05:31] LABS: Albumin 3.2 g/dL (3.4-5.0); Bilirubin Total 0.2 mg/dL (0.2-1.0); Potassium 4.3 mmol/L (3.5-5.1); Protein, Total 6.1 g/dL (6.4-8.2)
[2019-07-07] MEDS: ARFORMOTEROL TARTRATE 15 MCG/2 ML VIAL.NEB NEB SCH ×2 (07:38→20:30)
[2019-07-07] MEDS: predniSONE 20 MG TAB PO SCH ×2 (09:38→21:33)
[2019-07-07] MEDS: CETIRIZINE HCL 5 MG TABLET PO SCH (09:38)
[2019-07-07] MEDS: TRAMADOL HCL 50 MG TAB PO PRN ×2 (09:38→17:00)
[2019-07-07] MEDS: FAMOTIDINE 20 MG TAB PO SCH ×2 (09:39→21:33)
[2019-07-07] MEDS: ENOXAPARIN 40 MG/0.4 ML SQ SCH (09:39)
--- NOTE | 2019-07-07 10:28 | RAD REPORT ---
EXAM DESCRIPTION: RAD - Chest Single View - 07/04/2019 4:54 pm CLINICAL HISTORY: Cough COMPARISON: May 05, 2019 TECHNIQUE: AP portable chest image was obtained 1643 hours . FINDINGS: Lungs are clear. Heart and vasculature are normal. No measurable pleural effusion and no p neumothorax. No acute bony abnormality seen. No acute aortic findings suspected. IMPRESSION: No acute cardiopulmonary process. No significant interval change.
--- NOTE | 2019-07-07 12:16 | P.PN ---
Subjective Date of Service: 07/07/19 Primary Care Provider: Dr. Green Chief Complaint: Severe asthma Subjective: Improving Patient seen and examined at bedside. No family at bedside. Chart reviewed and case discussed with nursing staff. Patient course very limber better, still continues to have dyspnea on exertion Review of Systems 10-point ROS is otherwise unremarkable Physical Examination - Vital Signs Temperature: 98.4 F Blood Pressure: 123/79 Pulse: 62 Respirations: 18 Pulse Ox (%): 99 - Physical Exam General: Alert, In no apparent distress HEENT: Atraumatic, PERRLA, EOMI Neck: Supple, JVD not distended Respiratory: Dull, Expiratory wheezes Cardiovascular: Regular rate/rhythm, Normal S1 S2 Gastrointestinal: Normal bowel sounds, No tenderness Musculoskeletal: No tenderness Integumentary: No rashes Neurological: Normal speech, Normal tone, Normal affect Lymphatics: No axilla or inguinal lymphadenopathy - Studies Laboratory Data (last 24 hrs) 07/07/19 04:57: Sodium 141, Potassium 4.3, BUN 7, Creatinine 0.88, Glucose 122 H , Total Bilirubin 0.2, AST 10 L, ALT 28, Alkaline Phosphatase 47 07/07/19 04:57: WBC 10.1 D, Hgb 11.0 L, Hct 32.1 L, Plt Count 216 Microbiology Data (last 24 hrs): 07/05/19 05:30 Clean Catch Urine Ed[place] Count - Final <10,000 CFU/ML. 07/05/19 05:30 Clean Catch Urine - Final MIXED TONYA. Assessment And Plan - Plan 1. Shortness of breath secondary to asthma exacerbation. Improving 2. Acute asthma exacerbation. Continue with Xopenex. Add Atrovent. Continue with Zyrtec. Patient has moderate persistent asthma. We will continue with steroids. Consult Pulmonology, recommendations appreciated. Patient continues to have significant dyspnea upon exertion, not on any oxygen at this time. Peak flow is less than 10, not able to ambulate. Patient will need allergy testing as an outpatient. 3. Acute kidney injury secondary to dehydration and respiratory acidosis, improving. 4. Acidosis, improving. Lactate still elevated. We will continue with IV fluids and resuscitation. Recheck in a.m. 5. Gastroesophageal reflux disease without esophagitis, improved. 6. Obesity, BMI 35. Plan: Check peak flow. Discharge in the next 24 hours depending on clinical stability. Encourage ambulation
--- NOTE | 2019-07-07 12:39 | P.PN ---
Subjective Date of Service: 07/07/19 Primary Care Provider: Dr. Green Chief Complaint: Severe asthma Subjective: Improving (Still better still has some shortness of breath apparently developed a tachycardia on a Xopenex) Review of Systems 10-point ROS is otherwise unremarkable Physical Examination - Vital Signs Temperature: 98.4 F Blood Pressure: 123/79 Pulse: 62 Respirations: 18 Pulse Ox (%): 99 - Physical Exam General: Alert, Oriented x3 Neck: Supple Respiratory: Clear to auscultation bilaterally Cardiovascular: No edema, Regular rate/rhythm, Normal S1 S2 - Studies Laboratory Data (last 24 hrs) 07/07/19 04:57: Sodium 141, Potassium 4.3, BUN 7, Creatinine 0.88, Glucose 122 H , Total Bilirubin 0.2, AST 10 L, ALT 28, Alkaline Phosphatase 47 07/07/19 04:57: WBC 10.1 D, Hgb 11.0 L, Hct 32.1 L, Plt Count 216 Microbiology Data (last 24 hrs): 07/05/19 05:30 Clean Catch Urine [place] Count - Final <10,000 CFU/ML. 07/05/19 05:30 Clean Catch Urine - Final MIXED TONYA. 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
--- NOTE | 2019-07-07 12:49 | RAD REPORT ---
EXAM DESCRIPTION: Chest Abdomen Pelvis W Cont CLINICAL HISTORY: Sepsis chest pain abdominal COMPARISON: None. TECHNIQUE: CT CHEST ABDOMEN PELVIS WITH IV CONTRAST on 07/04/2019 11:41 PM CDT. MIPS reconstructions w ere generated. This exam was performed according to our departmental dose-optimization program, which includes autom ated exposure control, adjustment of the mA and/or kV according to patient size and/or use of iterati ve reconstruction technique. FINDINGS: Vascular: Thoracic aorta is normal in course and caliber without aneurysm or dissection. P ulmonary arteries are adequately opacified without acute or chronic filling defects. Abdominal aorta is normal in course and caliber without aneurysm. Pelvic arteries are patent without aneurysm or occl usion. Chest: The heart is normal in size. There is no pericardial effusion. Intrathoracic lymph nodes are n ot enlarged. There is no pleural effusion, pleural thickening or pneumothorax. Central airways are patent. Lungs a re clear with no consolidation, mass or interstitial lung disease. Abdomen: The liver is normal in appearance. There is no biliary dilatation. Gallbladder is normal in appearance. The pancreas and spleen are normal in appearance. The adrenal glands and kidneys are unre markable. There is no free air. There is no retroperitoneal adenopathy. Pelvis: There is no bowel obstruction. Urinary bladder is unremarkable. There is no free fluid. Uteru s is normal in size. Probable appendectomy was performed. Skeleton: There are no acute osseous findings. No suspicious bony lesions. IMPRESSION: No definite acute inflammatory process. Electronically signed by: Michael Carver MD 07/05/2019 12:43 AM CDT Due to temporary technical issues with the PACS/Fluency reporting system, reports are being signed by the in house radiologist as a courtesy to ensure prompt reporting. The interpreting radiologist is f edison responsible for the content of the report.
[2019-07-08] MEDS: IPRATROPIUM BROM 0.5MG/2.5ML NEB SCH ×2 (01:15→06:30)
[2019-07-08] MEDS: ARFORMOTEROL TARTRATE 15 MCG/2 ML VIAL.NEB NEB SCH (06:30)
[2019-07-08 07:23] VITALS: O2SAT 98
[2019-07-08] MEDS: TRAMADOL HCL 50 MG TAB PO PRN (09:19)
[2019-07-08] MEDS: ENOXAPARIN 40 MG/0.4 ML SQ SCH (09:19)
[2019-07-08] MEDS: FAMOTIDINE 20 MG TAB PO SCH (09:20)
[2019-07-08] MEDS: CETIRIZINE HCL 5 MG TABLET PO SCH (09:20)
[2019-07-08] MEDS: predniSONE 20 MG TAB PO SCH (09:20)
[2019-07-08 11:33] LABS: Absolute Lymphocytes (CBC) 1.1 K/uL (0.7-4.9); Basophils % 0.1 % (0-1.3); Hematocrit 38.6 % (36.0-45.0); Lymphocytes % 12.1 % (15.3-44.8); MPV 9.3 fL (7.6-11.3)
[2019-07-08 11:49] LABS: Albumin 3.5 g/dL (3.4-5.0); Bilirubin Total 0.3 mg/dL (0.2-1.0); Potassium 4.2 mmol/L (3.5-5.1); Protein, Total 7.1 g/dL (6.4-8.2)
[2019-07-08 16:00] VITALS: BP 114/60; TEMP 98.5
--- NOTE | 2019-07-08 17:15 | P.DS ---
Admission Date: 07/07/19 Discharge Date: 07/08/19 Primary Care Provider: Dr. Green Disposition: ROUTINE DISCHARGE Discharge Condition: FAIR Reason for Admission: Severe asthma Consultations: Pulmonology Brief History of Present Illness: 19 yo CF presented to the ER with cough and shortness of breath. Over the last week, she has had cough with shortness of breath. Today at work she had a severe coughing episode. She also reported being very weak and sick. She was seen by her PCP this past week and given medication for bronchitis. She was given prednisone but she did not take the medication. She had some mild nausea and subjective fever. She came to the ER for further evaluation. In the ER she was found to be very tachynic and tachycardic. She was given Solumedrol by EMS. She was found to have an elevated lactic acid of 7.8. Procalcitonin was negative. WBC-8.2, Hemoglobin 11.7, NA-145, K-3.5, BUN 7, Creatinine 1.3, GFR 52. D dimer negative. CXR unremarkable. CT chest/abdomen was unremarkable. CXR negative. test pending. She was given IV fluids in the ER with some mild improvement. Her tachycardia improved. She was admitted for observation. When I saw the patient she was not in any respiratory distress. She appeared improved from the time she was seen earlier in the ER. She had be given Zosyn in the ER but this was stopped due to itching upon initiation of medication. No sick contacts noted. She is not taking maintenance medication for Asthma. She has seen Pulmonary in the past. Patient appeared dehydrated. Hospital Course: Patient was admitted for shortness of breath, likely secondary to asthma exacerbation. Pulmonology was consulted. She was started on breathing treatments, Atrovent was added along with Zyrtec. Patient continued to have significant dyspnea upon exertion. She was weaned off of oxygen. Slowly her symptoms improved. She was then cleared for discharge by pulmonology. She was told the pulmonology to grain picker a sample inhaler from his office for trial. She did have acute kidney injury secondary to dehydration, which improved. Her acidosis did improve clinically. Her lactate was still elevated, likely secondary to this chronic respiratory disease. Clinically, prior to discharge , she was alert oriented x3, in no acute distress and ambulating without concerns. She was tolerating a regular diet. She is oxygenating well. Her diagnoses/treatment plan was explained to her, all questions were answered and she verbalized understanding. She was then discharged home in a safe and stable manner with instructions to follow up with pulmonology as an outpatient. Vital Signs/Physical Exam: Temp Pulse Resp BP Pulse Ox 98.5 F 111 H 16 114/60 95 07/08/19 12:00 07/08/19 12:00 07/08/19 12:00 07/08/19 12:00 07/08/19 12:00 General: Alert, In no apparent distress, Oriented x3 HEENT: Atraumatic, PERRLA, EOMI Neck: Supple, JVD not distended Respiratory: Normal air movement, Expiratory wheezes Cardiovascular: Regular rate/rhythm, Normal S1 S2 Gastrointestinal: Normal bowel sounds, No tenderness Musculoskeletal: No tenderness Integumentary: No rashes Neurological: Normal speech, Normal tone, Normal affect Lymphatics: No axilla or inguinal lymphadenopathy Laboratory Data at Discharge: WBC 8.7 K/uL (4.3-10.9) 07/08/19 11:12 Hgb 13.3 g/dL (12.0-15.0) 07/08/19 11:12 Hct 38.6 % (36.0-45.0) D 07/08/19 11:12 Plt Count 252 K/uL (152-406) 07/08/19 11:12 PT 11.6 SECONDS (9.5-12.5) 07/04/19 22:36 INR 0.98 07/04/19 22:36 Sodium 139 mmol/L (136-145) 07/08/19 11:12 Potassium 4.2 mmol/L (3.5-5.1) 07/08/19 11:12 BUN 11 mg/dL (7-18) 07/08/19 11:12 Creatinine 1.06 mg/dL (0.55-1.3) 07/08/19 11:12 Glucose 132 mg/dL (74-106) H 07/08/19 11:12 Magnesium 2.1 mg/dL (1.8-2.4) 07/06/19 07:30 Total Bilirubin 0.3 mg/dL (0.2-1.0) 07/08/19 11:12 AST 8 U/L (15-37) L 07/08/19 11:12 ALT 29 U/L (12-78) 07/08/19 11:12 Alkaline Phosphatase 56 U/L (45-117) 07/08/19 11:12 Lipase 66 U/L (73-393) L 07/04/19 22:36 Home Medications: Albuterol Sulfate [Proair Hfa] 1 in IN PRN 04/10/18 Cetirizine HCl [Zyrtec*] 10 mg PO DAILY tablet 07/08/19 Ipratropium Neb [Atrovent*] 0.5 mg NEB [id number] #1 amp 07/08/19 Levalbuterol [Xopenex*] 1.25 mg NEB Q6HP PRN #1 vial 07/08/19 predniSONE [Prednisone*] 20 mg PO BID #20 tab 07/08/19 New Medications: Ipratropium Neb [Atrovent*] 0.5 mg NEB [id number] #1 amp Levalbuterol [Xopenex*] 1.25 mg NEB Q6HP PRN #1 vial PRN Reason: Wheezing predniSONE [Prednisone*] 20 mg PO BID #20 tab Patient Discharge Instructions: Patient to grain picker a sample of trilogy from my office Diet: Regular Activity: Ad albert Followup: Jeremie Armas MD [ACTIVE - CAN ADMIT] - 1 Week Time spent managing pt's care (in minutes): 55
== END 2019-07-08 13:45 | disposition home or self-care (01) | DRG 202 ==
LOC: ER 16:25 → ERHOLD 07-05 04:10 → 2ND 07-05 04:21 → OBSVTOIN 07-07 07:51
PROVIDERS: ADMIT Family Medicine; ATTEND Family Medicine
DX: J45.51 Severe persistent asthma with (acute) exacerbation (principal); N17.9 Acute kidney failure, unspecified; E87.2 Acidosis; E86.0 Dehydration; K21.9 Gastro-esophageal reflux disease without esophagitis; E66.9 Obesity, unspecified; Z88.2 Allergy status to sulfonamides
CPT/HCPCS: 36415; 71045; 71260; 74177; 80048; 80053; 80076; 80307; 80320; 80329; 81003; 81015; 81025; 82805; 83605; 83690; 83735; 83930; 84145; 84443; 84484; 85025; 85379; 85610; 87040; 87086; 87088; 93005; 94010; 94640; 96361; 96365; 96375; 99285; G0378; J1650; J2405; J2543; J7030; J7512; J7605; Q9967

== ENCOUNTER 2019-08-09 15:37 | Emergency (ER) | payer OTHER ==
[2019-08-09] MEDS ORDERED: METOCLOPRAMIDE 10 MG/2mL INJ ONE (17:26)
[2019-08-09] MEDS ORDERED: KETOROLAC 30 MG/ML INJ ONE (17:27)
[2019-08-09] MEDS ORDERED: DIPHENHYDRAMINE 50 MG/ML VIAL ONE (17:27)
--- NOTE | 2019-08-09 17:51 | ER ---
Nurse's Notes [facility] Name: Adelaide Trinidad Age: 19 yrs Sex: Female : 2000 Arrival Date: 08/09/2019 Time: 15:39 Bed 12 Private MD: Bobby Borrero Diagnosis: Headache;Otalgia, right ear Presentation: 08/09 15:44 Presenting complaint: Patient states: both my ears hurt, I am nauseous, and just feel la1 bad the last couple days. Transition of care: patient was not received from another setting of care. Onset of symptoms was August 09, 2019. Risk Assessment: Do you want to hurt yourself or someone else? Patient reports no desire to harm self or others. Initial Sepsis Screen: Does the patient meet any 2 criteria? No. Patient's initial sepsis screen is negative. Does the patient have a suspected source of infection? No. Patient's initial sepsis screen is negative. Care prior to arrival: None. 15:44 Method Of Arrival: Ambulatory la1 15:44 Acuity: LUIZ 3 la1 Triage Assessment: 17:00 General: Appears in no apparent distress. Behavior is calm. 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 - Social history:: Smoking status: Patient/guardian denies using tobacco. - Ebola Screening: : No symptoms or risks identified at this time. Screenin:45 Abuse screen: Denies threats or abuse. Denies injuries from another. Nutritional iw screening: No deficits noted. Tuberculosis screening: No symptoms or risk factors identified. Fall Risk None identified. Assessment: 17:00 General: Appears in no apparent distress. comfortable, Behavior is calm, cooperative. iw Pain: Complains of pain in head. Neuro: Level of Consciousness is awake, alert, obeys commands, Oriented to person, place, time, situation, Appropriate for age Moves all extremities. Full function. Cardiovascular: Patient's skin is warm and dry. Respiratory: Respiratory effort is even, unlabored, Respiratory pattern is regular, symmetrical. EENT: Throat is clear. Musculoskeletal: Range of motion: intact in all extremities. 17:39 Reassessment: Patient appears in no apparent distress at this time. Patient and/or iw family updated on plan of care and expected duration. Pain level reassessed. Patient is alert, oriented x 3, equal unlabored respirations, skin warm/dry/pink. Vital Signs: 15:45 BP 133 / 73; Pulse 109; Resp 16; Temp 98.5; Pulse Ox 100% on R/A; Weight 74.84 kg; la1 Height 4 ft. 11 in. (149.86 cm); 15:45 Body Mass Index 33.33 (74.84 kg, 149.86 cm) la1 ED Course: 15:39 Patient arrived in ED. mr 15:40 Bobby Borrero MD is Private Physician. mr 15:44 Triage completed. la1 15:45 Arm band placed on right wrist. la1 16:05 Natalie Paredes RN is Primary Nurse. iw 16:07 Clement Gonzalez NP is PHCP. pm1 16:07 Luis Odell MD is Attending Physician. pm1 17:00 Patient has correct armband on for positive identification. iw 18:05 No provider procedures requiring assistance completed. Patient did not have IV access iw during this emergency room visit. Administered Medications: 17:35 Drug: Benadryl 25 mg Route: IM; Site: right deltoid; iw 17:37 Not Given (Other Intervention Used): Benadryl 25 mg IVP once iw 17:37 Drug: Reglan 10 mg Route: IM; Site: left gluteus; iw 17:38 Not Given (Duplicate Order): TORadol - Ketorolac 15 mg IVP once iw 17:38 Not Given (Physician Discretion): NS 0.9% 1000 ml IV at 1000 ml once iw 17:38 Drug: TORadol 30 mg Route: IM; Site: right deltoid; iw 17:39 Not Given (Duplicate Order): Reglan 10 mg IVP once; over 1 to 2 minutes iw Outcome: 17:50 Discharge ordered by . pm1 18:05 Discharged to home ambulatory, with family. iw 18:05 Condition: good 18:05 Discharge instructions given to patient, Instructed on discharge instructions, follow up and referral plans. medication usage, Demonstrated understanding of instructions, follow-up care, medications, Prescriptions given X 1. 18:06 Patient left the ED. la1 Signatures: Juli Sifuentes Irene RN JAZ iw Eric Thompson RN RN la1 Clement Gonzalez, KAMILA FURNITURE UPHOLSTERER APPRENTICE pm1
--- NOTE | 2019-08-09 17:52 | EDPHYS ---
Physician Documentation [facility] Name: Adelaide Trinidad Age: 19 yrs Sex: Female : 2000 Arrival Date: 08/09/2019 Time: 15:39 Bed 12 Private MD: Bobby Borrero ED Physician Luis Odell HPI: 08/09 17:09 This 19 yrs old Female presents to ER via Ambulatory with complaints of Ear pm1 Pain, Nausea. 17:09 The patient presents with pain. The complaints affect the right ear and left ear. pm1 Onset: The symptoms/episode began/occurred 2 day(s) ago. Modifying factors: The symptoms are alleviated by nothing, the symptoms are aggravated by nothing. 17:09 Associated signs and symptoms: Pertinent positives: bodyache, nausea, Pertinent pm1 negatives: fever, shortness of breath, sore throat, vomiting. Severity of symptoms: in the emergency department the symptoms are worse. The patient has not experienced similar symptoms in the past. The patient has not recently seen a physician. 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 - Social history:: Smoking status: Patient/guardian denies using tobacco. - Ebola Screening: : No symptoms or risks identified at this time. ROS: 17:09 Constitutional: Negative for fever, chills, and weight loss, Eyes: Negative for injury, pm1 pain, redness, and discharge, Neck: Negative for injury, pain, and swelling, Cardiovascular: Negative for chest pain, palpitations, and edema, Respiratory: Negative for shortness of breath, cough, wheezing, and pleuritic chest pain, Abdomen/GI: Negative for abdominal pain, nausea, vomiting, diarrhea, and constipation, Back: Negative for injury and pain, MS/Extremity: Negative for injury and deformity, Skin: Negative for injury, rash, and discoloration. 17:09 ENT: Positive for ear pain, Negative for drainage from ear(s), rhinorrhea, sore throat, difficulty swallowing, difficulty handling secretions, hoarseness. 17:09 Neuro: Positive for headache. pm1 Exam: 17:09 Constitutional: This is a well developed, well nourished patient who is awake, alert, pm1 and in no acute distress. Head/Face: Normocephalic, atraumatic. Eyes: Pupils equal round and reactive to light, extra-ocular motions intact. Lids and lashes normal. Conjunctiva and sclera are non-icteric and not injected. Cornea within normal limits. Periorbital areas with no swelling, redness, or edema. ENT: Nares patent. No nasal discharge, no septal abnormalities noted. Tympanic membranes are normal and external auditory canals are clear. Oropharynx with no redness, swelling, or masses, exudates, or evidence of obstruction, uvula midline. Mucous membranes moist. Neck: Trachea midline, no thyromegaly or masses palpated, and no cervical lymphadenopathy. Supple, full range of motion without nuchal rigidity, or vertebral point tenderness. No Meningismus. Chest/axilla: Normal chest wall appearance and motion. Nontender with no deformity. No lesions are appreciated. Cardiovascular: Regular rate and rhythm with a normal S1 and S2. No gallops, murmurs, or rubs. Normal PMI, no JVD. No pulse deficits. Respiratory: Lungs have equal breath sounds bilaterally, clear to auscultation and percussion. No rales, rhonchi or wheezes noted. No increased work of breathing, no retractions or nasal flaring. Abdomen/GI: Soft, non-tender, with normal bowel sounds. No distension or tympany. No guarding or rebound. No evidence of tenderness throughout. Back: No spinal tenderness. No costovertebral tenderness. Full range of motion. Skin: Warm, dry with normal turgor. Normal color with no rashes, no lesions, and no evidence of cellulitis. MS/ Extremity: Pulses equal, no cyanosis. Neurovascular intact. Full, normal range of motion. 17:09 Neuro: Orientation: is normal, Motor: is normal, moves all fours, strength is 5/5 in all extremities, Sensation: is normal, no obvious gross deficits, Gait: is steady, at a normal pace, without difficulty. Vital Signs: 15:45 BP 133 / 73; Pulse 109; Resp 16; Temp 98.5; Pulse Ox 100% on R/A; Weight 74.84 kg; la1 Height 4 ft. 11 in. (149.86 cm); 15:45 Body Mass Index 33.33 (74.84 kg, 149.86 cm) la1 MDM: 16:29 Patient medically screened. pm1 17:50 Data reviewed: vital signs. Data interpreted: Pulse oximetry: on room air is 100 %. pm1 Interpretation: normal. Counseling: I had a detailed discussion with the patient and/or guardian regarding: the historical points, exam findings, and any diagnostic results supporting the discharge/admit diagnosis, lab results, the need for outpatient follow up, to return to the emergency department if symptoms worsen or persist or if there are any questions or concerns that arise at home. 08/09 16:50 Order name: Flu; Complete Time: 17:21 pm1 Administered Medications: 17:35 Drug: Benadryl 25 mg Route: IM; Site: right deltoid; iw 17:37 Not Given (Other Intervention Used): Benadryl 25 mg IVP once iw 17:37 Drug: Reglan 10 mg Route: IM; Site: left gluteus; iw 17:38 Not Given (Duplicate Order): TORadol - Ketorolac 15 mg IVP once iw 17:38 Not Given (Physician Discretion): NS 0.9% 1000 ml IV at 1000 ml once iw 17:38 Drug: TORadol 30 mg Route: IM; Site: right deltoid; iw 17:39 Not Given (Duplicate Order): Reglan 10 mg IVP once; over 1 to 2 minutes iw Disposition: 08/10 13:05 Co-signature as Attending Physician, Luis Odell MD I agree with the assessment and kdr plan of care. Disposition: 08/09/19 17:50 Discharged to Home. Impression: Headache, Otalgia, right ear. - Condition is Stable. - Discharge Instructions: General Headache Without Cause, Earache, Adult. - Prescriptions for Fiorinal 50- 325-40 mg Oral Capsule - take 1 capsule by ORAL route every 4 hours As needed - not to exceed 6 capsules per day; 20 capsule. - Medication Reconciliation Form, Thank You Letter, Antibiotic Education, Prescription Opioid Use form. - Follow up: Emergency Department; When: As needed; Reason: Worsening of condition. Follow up: Private Physician; When: 2 - 3 days; Reason: Recheck today's complaints, Continuance of care, Re-evaluation by your physician. - Problem is new. - Symptoms have improved. Signatures: Dispatcher [employer] EDMS Luis Odell MD MD [facility] Natalie Paredes RN RN iw Eric Thompson RN RN la1 Clement Gonzalez, ROAD WORKER ROAD WORKER pm1 Corrections: (The following items were deleted from the chart) 08/09 18:06 17:50 08/09/2019 17:50 Discharged to Home. Impression: Headache; Otalgia, right ear. la1 Condition is Stable. Forms are Medication Reconciliation Form, Thank You Letter, Antibiotic Education, Prescription Opioid Use. Follow up: Emergency Department; When: As needed; Reason: Worsening of condition. Follow up: Private Physician; When: 2 - 3 days; Reason: Recheck today's complaints, Continuance of care, Re-evaluation by your physician. Problem is new. Symptoms have improved. pm1
[2019-08-09 18:13] VITALS: BP 133/73; TEMP 98.5; O2SAT 100
== END 2019-08-09 18:06 | disposition home or self-care (01) ==
LOC: ER 15:37
DX: H92.01 Otalgia, right ear (principal); R51 Headache; Z88.1 Allergy status to other antibiotic agents; Z88.3 Allergy status to other anti-infective agents
CPT/HCPCS: 87804 ×2; J2765; J1200; 96372; 99283

== ENCOUNTER 2019-09-11 20:51 | Emergency (ER) | payer OTHER ==
[2019-09-11 21:46] LABS: Urine Bacteria <20 /HPF (<20); Urine Culture Reflex Order REFLEXED; Urine Mucus 1+ /HPF (NONE SEEN); Urine RBC <5 /HPF (NONE SEEN)
[2019-09-11 21:47] LABS: Urine Blood NEGATIVE (NEG); Urine Glucose NEGATIVE (NEG); Urine Protein NEGATIVE (NEG); Urine pH 6.5 (5.0-7.0)
--- NOTE | 2019-09-11 22:02 | ER ---
Nurse's Notes [facility] Name: Adelaide Trinidad Age: 19 yrs Sex: Female : 2000 Arrival Date: 09/11/2019 Time: 20:54 Bed 5 Private MD: Corby Burnett B Diagnosis: Acute upper respiratory infection, unspecified;Headache Presentation: 09/11 21:04 Presenting complaint: Patient states: Reports she started having a headache this AM. Pt ea reports the pain is constant, and feels nauseated 10/10. Transition of care: patient was not received from another setting of care. Onset of symptoms was September 11, 2019. Risk Assessment: Do you want to hurt yourself or someone else? Patient reports no desire to harm self or others. Initial Sepsis Screen: Does the patient meet any 2 criteria? No. Patient's initial sepsis screen is negative. Does the patient have a suspected source of infection? No. Patient's initial sepsis screen is negative. Care prior to arrival: None. 21:04 Method Of Arrival: Ambulatory ea 21:04 Acuity: LUIZ 3 ea Triage Assessment: 21:44 Headache History: The patient has had previous headaches. General: Appears in no ak1 apparent distress. uncomfortable, Behavior is calm, cooperative. Pain: Pain at worst was 10 out of 10 on a pain scale. Quality of pain is described as throbbing. Neuro: Level of Consciousness is awake, alert, obeys commands, Oriented to person, place, time, situation, Cinder Dump Crane Operator are equal bilaterally Moves all extremities. Gait is steady, Speech is normal, Facial symmetry appears normal. 21:47 Pain: Pain began this morning Also complains of photophobia. 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 - Social history:: Smoking status: Patient/guardian denies using tobacco. - Ebola Screening: : No symptoms or risks identified at this time. Screenin:08 Abuse screen: Denies threats or abuse. Nutritional screening: No deficits noted. ea Tuberculosis screening: No symptoms or risk factors identified. Fall Risk None identified. Assessment: 21:45 Reassessment: pt was seen in ER on the for headache and given Fiorinal ak1 prescription. General: Appears in no apparent distress. Behavior is calm, cooperative. Pain: Complains of pain in left mormon and right mormon and forehead and left posterior lower lobe and left posterior upper lobe Pain currently is 10 out of 10 on a pain scale. Quality of pain is described as throbbing, Pain began this morning. Neuro: Oriented to person, place, time, situation, Cinder Dump Crane Operator are equal bilaterally Moves all extremities. Full function Gait is steady, Speech is normal. Cardiovascular: No deficits noted. Respiratory: Airway is patent Respiratory effort is even, unlabored, Breath sounds with wheezes pt stated she had an asthma attack today and used her albuterol inhaler. GI: No signs and/or symptoms were reported involving the gastrointestinal system. : No signs and/or symptoms were reported regarding the genitourinary system. EENT: No signs and/or symptoms were reported regarding the EENT system. Derm: No signs and/or symptoms reported regarding the dermatologic system. Musculoskeletal: No signs and/or symptoms reported regarding the musculoskeletal system. 22:29 Reassessment: Patient appears in no apparent distress at this time. No changes from ak1 previously documented assessment. Patient and/or family updated on plan of care and expected duration. Pain level reassessed. Patient is alert, oriented x 3, equal unlabored respirations, skin warm/dry/pink. Patient states feeling better. Patient states symptoms have improved. Vital Signs: 21:07 BP 120 / 78; Pulse 94; Resp 18; Temp 98.8; Pulse Ox 100% on R/A; Weight 74.84 kg; ea Height 4 ft. 11 in. (149.86 cm); Pain 10/10; 21:07 Body Mass Index 33.33 (74.84 kg, 149.86 cm) ea ED Course: 20:54 Patient arrived in ED. es 20:55 Corby Burnett MD is Private Physician. es 20:59 Kathie Cotto RN is Primary Nurse. ak1 21:07 [facility]C [facility] snw 21:07 Denys Singer MD is Attending Physician. snw 21: Triage completed. ea 21:08 Patient has correct armband on for positive identification. Bed in low position. Call ea light in reach. Side rails up X2. 21:08 Arm band placed on right wrist. Patient placed in an exam room, on a stretcher, on ea pulse oximetry. 21:29 Urine Microscopic Only Sent. ds4 22: Corby Burnett MD is Referral Physician. snw 22:28 No provider procedures requiring assistance completed. Patient did not have IV access ak1 during this emergency room visit. Administered Medications: : Drug: TORadol 30 mg Route: IM; Site: left gluteus; ak1 :28 Follow up: Response: No adverse reaction ak1 Outcome: :02 Discharge ordered by MD. snw 22:29 Discharged to home ambulatory. ak1 22:29 Condition: good 22:29 Discharge instructions given to patient, Instructed on discharge instructions, follow up and referral plans. medication usage, Demonstrated understanding of instructions, follow-up care, medications, Prescriptions given X 1. 22:29 Patient left the ED. ak1 Signatures: Jen Marley FNP-C DONOR SERVICES TECHNICIAN-Csnw Cherry Ramírez Donovan ds4 Kathie Cotto, RN RN ak1 Taryn Ryan RN RN mary anne
--- NOTE | 2019-09-11 22:02 | EDPHYS ---
Physician Documentation [facility] Name: Adelaide Trinidad Age: 19 yrs Sex: Female : 2000 Arrival Date: 09/11/2019 Time: 20:54 Bed 5 Private MD: Corby Burnett B ED Physician Denys Singer HPI: 09/11 21:30 This 19 yrs old Female presents to ER via Ambulatory with complaints of snw Headache. 21:30 The patient complains of pain to the forehead, right tenriism and left tenriism. The snw patient describes the headache as a pressure. Onset: The symptoms/episode began/occurred gradually, this morning. Associated signs and symptoms: The patient has no apparent associated signs or symptoms. Severity of symptoms: At its worst the pain was moderate, in the emergency department the pain is unchanged. Headache History: The patient has had previous headaches and this one is more severe than previous episodes. the symptoms are aggravated by nothing. The patient has experienced similar episodes in the past. It is unknown whether or not the patient has recently seen a physician. 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 - Social history:: Smoking status: Patient/guardian denies using tobacco. - Ebola Screening: : No symptoms or risks identified at this time. ROS: 21:20 Constitutional: Negative for fever, chills, and weight loss, Eyes: Negative for injury, snw pain, redness, and discharge, ENT: Negative for injury, pain, and discharge, Neck: Negative for injury, pain, and swelling, Cardiovascular: Negative for chest pain, palpitations, and edema, Respiratory: Negative for shortness of breath, cough, wheezing, and pleuritic chest pain, Abdomen/GI: Negative for abdominal pain, nausea, vomiting, diarrhea, and constipation, Back: Negative for injury and pain, : Negative for injury, bleeding, discharge, and swelling, MS/Extremity: Negative for injury and deformity, Skin: Negative for injury, rash, and discoloration, Psych: Negative for depression, anxiety, suicide ideation, homicidal ideation, and hallucinations. 21:20 Neuro: Positive for headache. Exam: 21:19 Constitutional: This is a well developed, well nourished patient who is awake, alert, snw and in no acute distress. Head/Face: Normocephalic, atraumatic. Eyes: Pupils equal round and reactive to light, extra-ocular motions intact. Lids and lashes normal. Conjunctiva and sclera are non-icteric and not injected. Cornea within normal limits. Periorbital areas with no swelling, redness, or edema. Neck: Trachea midline, no thyromegaly or masses palpated, and no cervical lymphadenopathy. Supple, full range of motion without nuchal rigidity, or vertebral point tenderness. No Meningismus. Chest/axilla: Normal chest wall appearance and motion. Nontender with no deformity. No lesions are appreciated. Cardiovascular: Regular rate and rhythm with a normal S1 and S2. No gallops, murmurs, or rubs. Normal PMI, no JVD. No pulse deficits. 21:19 Abdomen/GI: Soft, non-tender, with normal bowel sounds. No distension or tympany. No guarding or rebound. No evidence of tenderness throughout. Back: No spinal tenderness. No costovertebral tenderness. Full range of motion. Skin: Warm, dry with normal turgor. Normal color with no rashes, no lesions, and no evidence of cellulitis. MS/ Extremity: Pulses equal, no cyanosis. Neurovascular intact. Full, normal range of motion. Neuro: Awake and alert, GCS 15, oriented to person, place, time, and situation. Cranial nerves II-XII grossly intact. Motor strength 5/5 in all extremities. Sensory grossly intact. Cerebellar exam normal. Normal gait. Psych: Awake, alert, with orientation to person, place and time. Behavior, mood, and affect are within normal limits. 21:19 ENT: TM's: fluid levels, on the left, Nose: is normal, Mouth: is normal, Posterior pharynx: is normal, Voice: is normal. 21:19 Respiratory: the patient does not display signs of respiratory distress, Respirations: normal, Breath sounds: wheezing: that is moderate, is heard in the left posterior upper lobe and left posterior lower lobe. Vital Signs: 21:07 BP 120 / 78; Pulse 94; Resp 18; Temp 98.8; Pulse Ox 100% on R/A; Weight 74.84 kg; ea Height 4 ft. 11 in. (149.86 cm); Pain 10/10; 21:07 Body Mass Index 33.33 (74.84 kg, 149.86 cm) ea MDM: 21:07 Patient medically screened. snw 22:03 Data reviewed: vital signs, nurses notes. Data interpreted: Pulse oximetry: on room air snw is 100 %. Interpretation: normal. Counseling: I had a detailed discussion with the patient and/or guardian regarding: the historical points, exam findings, and any diagnostic results supporting the discharge/admit diagnosis, lab results, the need for outpatient follow up, to return to the emergency department if symptoms worsen or persist or if there are any questions or concerns that arise at home. Special discussion: Based on the history and exam findings, there is no indication for further emergent testing or inpatient evaluation. I discussed with the patient/guardian the need to see the primary care provider for further evaluation of the symptoms. 09/11 21:19 Order name: Urine Microscopic Only; Complete Time: 21:51 snw 09/11 21:19 Order name: Flu; Complete Time: 22:07 snw 09/11 21:19 Order name: Strep; Complete Time: 22:04 snw 09/11 21:28 Order name: Urine Dipstick--Ancillary (enter results); Complete Time: 21:51 ds4 09/11 21:28 Order name: Urine --Ancillary (enter results); Complete Time: 21:51 ds4 09/11 21:51 Order name: Urine Culture EDMS 09/11 21:19 Order name: Urine Test (obtain specimen); Complete Time: 21:26 snw 09/11 21:19 Order name: Urine Dipstick-Ancillary (obtain specimen); Complete Time: 21:26 snw 09/11 22:06 Order name: Throat Culture EDMS Administered Medications: 22:28 Drug: TORadol 30 mg Route: IM; Site: left gluteus; ak1 22:28 Follow up: Response: No adverse reaction ak1 Disposition: 09/11/19 22:02 Discharged to Home. Impression: Acute upper respiratory infection, unspecified, Headache. - Condition is Stable. - Discharge Instructions: Sinus Headache, Upper Respiratory Infection, Adult, Upper Respiratory Infection, Pediatric, Cool Mist Vaporizer, Rehydration, Adult. - Prescriptions for Mucinex DM 30- 600 mg Oral tablet extended release 12 hr - take 1 tablet by ORAL route every 12 hours as needed; 20 tablet. - Medication Reconciliation Form, Thank You Letter, Antibiotic Education, Prescription Opioid Use form. - Follow up: Corby Burnett MD; When: 2 - 3 days; Reason: Recheck today's complaints, Continuance of care, Re-evaluation by your physician. Follow up: Emergency Department; When: As needed; Reason: Worsening of condition. Addendum: 09/14/2019 21:57 Co-signature as Attending Physician, Denys Singer MD I agree with the assessment and t w4 plan of care. Signatures: Dispatcher [employer] EDMS Jen Marley, CLINICAL CARE MANAGER-C CLINICAL CARE MANAGER-Csnw Kathie Cotto RN RN ak1 Taryn Ryan RN Denys Galan ea, MD MD tw4 Corrections: (The following items were deleted from the chart) 09/11 22:29 22:02 09/11/2019 22:02 Discharged to Home. Impression: Acute upper respiratory ak1 infection, unspecified; Headache. Condition is Stable. Forms are Medication Reconciliation Form, Thank You Letter, Antibiotic Education, Prescription Opioid Use. Follow up: Corby Burnett; When: 2 - 3 days; Reason: Recheck today's complaints, Continuance of care, Re-evaluation by your physician. Follow up: Emergency Department; When: As needed; Reason: Worsening of condition. snw
[2019-09-11] MEDS ORDERED: KETOROLAC 30 MG/ML INJ ONE (22:23)
== END 2019-09-11 22:29 | disposition home or self-care (01) ==
LOC: ER 20:51
DX: J06.9 Acute upper respiratory infection, unspecified (principal); J45.909 Unspecified asthma, uncomplicated; Z88.1 Allergy status to other antibiotic agents; Z88.3 Allergy status to other anti-infective agents
CPT/HCPCS: 81003; 81015; 81025; 87070; 87081; 87086; 87088; 87804; 96372; 99284

== ENCOUNTER 2019-09-26 22:52 | Emergency (ER) | payer OTHER ==
[2019-09-26] MEDS ORDERED: MAGNESIUM OXIDE 400 MG TAB ONE (23:44)
[2019-09-26] MEDS ORDERED: LORAZEPAM 0.5 MG TABLET ONE (23:44)
[2019-09-26] MEDS ORDERED: predniSONE 20 MG TAB ONE (23:44)
[2019-09-26] MEDS ORDERED: FAMOTIDINE 20 MG TAB ONE (23:45)
--- NOTE | 2019-09-27 00:34 | ER ---
Nurse's Notes [facility] Name: Adelaide Trinidad Age: 19 yrs Sex: Female : 2000 Arrival Date: 09/26/2019 Time: 22:54 Bed 15 Private MD: Diagnosis: Unspecified asthma with (acute) exacerbation Presentation: 09/26 23:00 Presenting complaint: Patient states: "I started coughing and feeling short of breath. jd3 I tried taking my inhaler, but it just kept getting worse.". Transition of care: patient was not received from another setting of care. Onset of symptoms was September 26, 2019. Risk Assessment: Do you want to hurt yourself or someone else? Patient reports no desire to harm self or others. Initial Sepsis Screen: Does the patient meet any 2 criteria? No. Patient's initial sepsis screen is negative. Does the patient have a suspected source of infection? No. Patient's initial sepsis screen is negative. Care prior to arrival: None. 23:00 Method Of Arrival: Ambulatory jd3 23:00 Acuity: LUIZ 3 jd3 Historical: - Allergies: 23:02 Bactrim; jd3 23:02 Doxycycline; jd3 23:02 Zithromax; jd3 - Home Meds: 23:02 Albuterol Inhl [Active]; NuvaRing Vaginal [Active]; jd3 - PMHx: 23:02 Anxiety; Asthma; Depression; HYPOGLYCEMIA; scoliosis; jd3 - PSHx: 23:02 Appendectomy; jd3 - Immunization history:: Adult Immunizations up to date. - Social history:: Smoking status: Patient/guardian denies using tobacco. - Ebola Screening: : Patient negative for fever greater than or equal to 101.5 degrees Fahrenheit, and additional compatible Ebola Virus Disease symptoms. Screenin:00 Abuse screen: Denies threats or abuse. Nutritional screening: No deficits noted. tr5 Tuberculosis screening: No symptoms or risk factors identified. Fall Risk None identified. Assessment: 23:00 General: Behavior is calm, cooperative, appropriate for age. Pain: Denies pain. Neuro: tr5 Level of Consciousness is awake, alert, obeys commands, Oriented to person, place, time, Restoration Ecologist are equal bilaterally Moves all extremities. Cardiovascular: Heart tones present Capillary refill < 3 seconds Pulses are all present. Edema is absent. Rhythm is regular. Respiratory: Reports shortness of breath at rest Airway is patent Respiratory effort is even, unlabored, Respiratory pattern is regular, symmetrical. GI: No signs and/or symptoms were reported involving the gastrointestinal system. : No signs and/or symptoms were reported regarding the genitourinary system. EENT: No signs and/or symptoms were reported regarding the EENT system. Derm: No signs and/or symptoms reported regarding the dermatologic system. Musculoskeletal: No signs and/or symptoms reported regarding the musculoskeletal system. 09/27 00:18 Reassessment: Pt stated " I am leaving, I am tired of waiting here", attempted to speak ea to patient to see what can be done to better assist her, pt stated "I am leaving, I'm tired of being here just waiting" Pt left ED. Provider and charge nurse notified. Vital Signs: 09/26 23:02 BP 108 / 69; Pulse 114; Resp 22 S; Temp 98.5(O); Pulse Ox 99% on R/A; Weight 74.84 kg j (R); Height 4 ft. 11 in. (149.86 cm) (R); Pain 9/10; 23:02 Body Mass Index 33.33 (74.84 kg, 149.86 cm) j ED Course: 22:54 Patient arrived in ED. cl3 22:59 Jen Marley FNP-C is [facility]. snw 23:00 Juan A Louie MD is Attending Physician. snw 23:00 Bed in low position. Call light in reach. Side rails up X 1. tr5 23:01 Triage completed. jd3 23:03 Arm band placed on. jd3 23:22 Wili Muñiz, JAZ is Primary Nurse. tr5 Administered Medications: 23:46 Drug: Ativan 0.5 mg Route: PO; tr5 23:46 Drug: predniSONE 40 mg Route: PO; tr5 23:46 Drug: Pepcid 20 mg Route: PO; tr5 23:46 Drug: Magnesium 400 mg Route: PO; tr5 Outcome: 09/27 00:51 Patient left the ED. tr5 Signatures: Jen Marley FNP-C FNP-Csnw Taryn Ryan RN RN ea Davies, Jonathon, RN RN jd3 Rodriguez, Wili, RN RN tr5 Mauro Bhardwaj cl3
--- NOTE | 2019-09-27 00:35 | EDPHYS ---
Physician Documentation [facility] Name: Adelaide Trinidad Age: 19 yrs Sex: Female : 2000 Arrival Date: 09/26/2019 Time: 22:54 Bed 15 Private MD: ED Physician Juan A Louie HPI: 09/26 23:19 This 19 yrs old Female presents to ER via Ambulatory with complaints of snw Shortness Of Breath. 23:19 The patient has shortness of breath at rest. Onset: The symptoms/episode began/occurred snw suddenly, 2 day(s) ago, and became worse and became persistent. Duration: The symptoms are continuous. Associated signs and symptoms: Pertinent positives: This patient does not have any pertinent positive signs or symptoms associated with shortness of breath. Severity of symptoms: At their worst the symptoms were moderate. The patient has experienced similar episodes in the past. It is unknown whether or not the patient has recently seen a physician. Historical: - Allergies: 23:02 Bactrim; jd3 23:02 Doxycycline; jd3 23:02 Zithromax; jd3 - Home Meds: 23:02 Albuterol Inhl [Active]; NuvaRing Vaginal [Active]; jd3 - PMHx: 23:02 Anxiety; Asthma; Depression; HYPOGLYCEMIA; scoliosis; jd3 - PSHx: 23:02 Appendectomy; jd3 - Immunization history:: Adult Immunizations up to date. - Social history:: Smoking status: Patient/guardian denies using tobacco. - Ebola Screening: : Patient negative for fever greater than or equal to 101.5 degrees Fahrenheit, and additional compatible Ebola Virus Disease symptoms. ROS: 23:19 Constitutional: Negative for fever, chills, and weight loss, Eyes: Negative for injury, snw pain, redness, and discharge, ENT: Negative for injury, pain, and discharge, Neck: Negative for injury, pain, and swelling, Cardiovascular: Negative for chest pain, palpitations, and edema, Abdomen/GI: Negative for abdominal pain, nausea, vomiting, diarrhea, and constipation, Back: Negative for injury and pain, : Negative for injury, bleeding, discharge, and swelling, MS/Extremity: Negative for injury and deformity, Skin: Negative for injury, rash, and discoloration, Neuro: Negative for headache, weakness, numbness, tingling, and seizure, Psych: Negative for depression, anxiety, suicide ideation, homicidal ideation, and hallucinations. 23:19 Respiratory: Positive for shortness of breath, at rest. wheezing. Exam: 23:18 Constitutional: This is a well developed, well nourished patient who is awake, alert, snw and in no acute distress. Head/Face: Normocephalic, atraumatic. Eyes: Pupils equal round and reactive to light, extra-ocular motions intact. Lids and lashes normal. Conjunctiva and sclera are non-icteric and not injected. Cornea within normal limits. Periorbital areas with no swelling, redness, or edema. ENT: Nares patent. No nasal discharge, no septal abnormalities noted. Tympanic membranes are normal and external auditory canals are clear. Oropharynx with no redness, swelling, or masses, exudates, or evidence of obstruction, uvula midline. Mucous membranes moist. Neck: Trachea midline, no thyromegaly or masses palpated, and no cervical lymphadenopathy. Supple, full range of motion without nuchal rigidity, or vertebral point tenderness. No Meningismus. Chest/axilla: Normal chest wall appearance and motion. Nontender with no deformity. No lesions are appreciated. Cardiovascular: Regular rate and rhythm with a normal S1 and S2. No gallops, murmurs, or rubs. Normal PMI, no JVD. No pulse deficits. Abdomen/GI: Soft, non-tender, with normal bowel sounds. No distension or tympany. No guarding or rebound. No evidence of tenderness throughout. Back: No spinal tenderness. No costovertebral tenderness. Full range of motion. Skin: Warm, dry with normal turgor. Normal color with no rashes, no lesions, and no evidence of cellulitis. MS/ Extremity: Pulses equal, no cyanosis. Neurovascular intact. Full, normal range of motion. Neuro: Awake and alert, GCS 15, oriented to person, place, time, and situation. Cranial nerves II-XII grossly intact. Motor strength 5/5 in all extremities. Sensory grossly intact. Cerebellar exam normal. Normal gait. Psych: Awake, alert, with orientation to person, place and time. Behavior, mood, and affect are within normal limits. 23:18 Respiratory: the patient does not display signs of respiratory distress, Respirations: shallow respirations, tachypnea, that is moderate, Breath sounds: wheezing: that is moderate, is heard diffusely. Vital Signs: 23:02 BP 108 / 69; Pulse 114; Resp 22 S; Temp 98.5(O); Pulse Ox 99% on R/A; Weight 74.84 kg jd3 (R); Height 4 ft. 11 in. (149.86 cm) (R); Pain 9/10; 23:02 Body Mass Index 33.33 (74.84 kg, 149.86 cm) jd3 MDM: 23:07 Patient medically screened. [facility] 09/27 00:30 Special discussion: Based on the history and exam findings, there is no indication for snw further emergent testing or inpatient evaluation. I discussed with the patient/guardian the need to see the primary care provider for further evaluation of the symptoms. I discussed with the patient/guardian the need to see the turn machine operator for further evaluation of the symptoms. ED course: Notified by staff that pt left ED, appeared upset. Belatedly told that pt had vomited all her medications. Unsure why pt left ED.. 00:34 Data reviewed: vital signs, nurses notes. Data interpreted: Pulse oximetry: on room air snw is 99 %. Interpretation: normal. Counseling: I had a detailed discussion with the patient and/or guardian regarding: the historical points, exam findings, and any diagnostic results supporting the discharge/admit diagnosis. Administered Medications: 09/26 23:46 Drug: Ativan 0.5 mg Route: PO; tr5 23:46 Drug: predniSONE 40 mg Route: PO; tr5 23:46 Drug: Pepcid 20 mg Route: PO; tr5 23:46 Drug: Magnesium 400 mg Route: PO; tr5 Disposition: 09/27/19 00:33 Patient left the facility after being seen by provider. Preliminary diagnosis is Unspecified asthma with (acute) exacerbation. - Patient left due to unknown. - Condition is Stable. Addendum: 09/28/2019 10:45 Co-signature as Attending Physician, Juan A Louie MD I agree with the assessment and c nolasco plan of care. Signatures: Juan A Louie MD MD cha Therrien, Shelly, MARKER MACHINE ATTENDANT-C MARKER MACHINE ATTENDANT-Laineyw Hakan Nugent RN RN jd3 Antonino, Wili, RN RN tr5 Corrections: (The following items were deleted from the chart) 09/27 00:51 00:33 09/27/2019 00:33 Patient left the facility after being seen by provider. tr5 Preliminary diagnosis is Unspecified asthma with (acute) exacerbation. Reason stated they are leaving due to unknown. Condition is Stable. snw
[2019-09-27 01:10] VITALS: BP 108/69; TEMP 98.5; O2SAT 99
== END 2019-09-27 00:51 | disposition left against medical advice (07) ==
LOC: ER 22:52
DX: J45.901 Unspecified asthma with (acute) exacerbation (principal); Z88.1 Allergy status to other antibiotic agents; Z88.3 Allergy status to other anti-infective agents
CPT/HCPCS: 99282; J7512

== ENCOUNTER 2019-11-19 22:34 | Emergency (ER) | payer OTHER ==
[2019-11-19 23:57] LABS: Urine Blood TRACE (NEG); Urine Glucose NEGATIVE (NEG); Urine Protein NEGATIVE (NEG); Urine Specific Gravity 1.025 (1.005-1.030)
[2019-11-20 00:17] LABS: Basophils % 0.9 % (0-1.3); Hematocrit 39.3 % (36.0-45.0); MPV 9.5 fL (7.6-11.3); RBC Red Blood Cell Count 4.45 M/uL (3.86-4.86)
[2019-11-20] MEDS ORDERED: MORPHINE 4 MG/ML SYR ONE (00:22)
[2019-11-20] MEDS ORDERED: ONDANSETRON 4 MG/2 ML VIAL ONE (00:22)
[2019-11-20] MEDS ORDERED: NA CHLORIDE 0.9% 500 ML ONE (00:22)
[2019-11-20 00:32] LABS: ALT/SGPT 22 U/L (12-78); AST/SGOT 10 U/L (15-37); Albumin 3.4 g/dL (3.4-5.0); Alkaline Phosphatase 81 U/L (45-117); BUN Blood Urea Nitrogen 6 mg/dL (7-18); Bicarbonate 26 mmol/L (21-32); Bilirubin Direct < 0.1 mg/dL (0-0.2); Bilirubin Total 0.2 mg/dL (0.2-1.0); Glucose Level 95 mg/dL (74-106); Lipase 66 U/L (73-393); Potassium 3.2 mmol/L (3.5-5.1); Protein, Total 7.3 g/dL (6.4-8.2); Sodium Level 142 mmol/L (136-145)
[2019-11-20 00:32] LABS: Urine Bacteria 20-50 /HPF (<20); Urine RBC <5 /HPF (NONE SEEN)
[2019-11-20 00:33] LABS: Urine Amorphous Sediment 2+ /HPF (NONE SEEN); Urine Culture Reflex Order REFLEXED; Urine Mucus 1+ /HPF (NONE SEEN)
[2019-11-20] MEDS ORDERED: KETOROLAC 30 MG/ML INJ ONE (01:32)
--- NOTE | 2019-11-20 02:01 | ER ---
Nurse's Notes [facility] Name: Adelaide Trinidad Age: 19 yrs Sex: Female : 2000 Arrival Date: 11/19/2019 Time: 22:36 Bed 20 Private MD: Diagnosis: Acute cystitis;Abdominal and pelvic pain Presentation: 11/19 23:01 Presenting complaint: Patient states: Lower abdominal pain, worse to LLQ x 3 days; lp1 States some episodes of diarrhea. Transition of care: patient was not received from another setting of care. Onset of symptoms was November 19, 2019. Risk Assessment: Do you want to hurt yourself or someone else? Patient reports no desire to harm self or others. Initial Sepsis Screen: Does the patient meet any 2 criteria? No. Patient's initial sepsis screen is negative. Does the patient have a suspected source of infection? No. Patient's initial sepsis screen is negative. Care prior to arrival: None. 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 - Social history:: Smoking status: Patient denies any tobacco usage or history of. - Ebola Screening: : No symptoms or risks identified at this time. Screenin:04 Abuse screen: Denies threats or abuse. Denies injuries from another. Nutritional lp1 screening: No deficits noted. Tuberculosis screening: No symptoms or risk factors identified. Fall Risk None identified. Assessment: 23:30 General: Appears in no apparent distress. Behavior is calm, cooperative, appropriate wh for age. Pain: Complains of pain in left lower quadrant and suprapubic area Pain does not radiate. Pain currently is 6 out of 10 on a pain scale. Quality of pain is described as aching. Neuro: Level of Consciousness is awake, alert, obeys commands. Cardiovascular: Heart tones S1 S2. Respiratory: Airway is patent Respiratory effort is even, unlabored, Respiratory pattern is regular, symmetrical, Breath sounds are clear bilaterally. GI: Abdomen is flat, non-distended, Bowel sounds present X 4 quads. Abd is soft and non tender X 4 quads. : No signs and/or symptoms were reported regarding the genitourinary system. EENT: No signs and/or symptoms were reported regarding the EENT system. Derm: Skin is intact, is healthy with good turgor, Skin is pink, warm \T\ dry. normal. Musculoskeletal: Circulation, motion, and sensation intact. 11/20 01:09 Reassessment: Patient appears in no apparent distress at this time. No changes from previously documented assessment. Patient and/or family updated on plan of care and expected duration. Pain level reassessed. Patient is alert, oriented x 3, equal unlabored respirations, skin warm/dry/pink. Vital Signs: 11/19 23:01 BP 123 / 87; Pulse 98; Resp 18; Temp 98.4(O); Pulse Ox 100% on R/A; Weight 77.11 kg lp1 (R); Height 4 ft. 11 in. (149.86 cm); Pain 9/10; 11/20 00:00 BP 110 / 73; Pulse 82; Resp 18; Pulse Ox 99% on R/A; 01:00 BP 112 / 57; Pulse 88; Resp 18; Pulse Ox 99% ; 02:00 BP 109 / 63; Pulse 84; Resp 18; Pulse Ox 96% on R/A; 11/19 23:01 Body Mass Index 34.34 (77.11 kg, 149.86 cm) lp1 ED Course: 11/19 22:36 Patient arrived in ED. cl3 22:55 Eric Thompson FNP-C is [facility]. la1 22:55 Juan A Louie MD is Attending Physician. la1 23:01 Arm band placed on. lp1 23:03 Triage completed. lp1 23:30 Patient has correct armband on for positive identification. Bed in low position. Call light in reach. Side rails up X 1. Pulse ox on. NIBP on. 23:33 Reyna Whitehead is Primary Nurse. 23:40 Radiology exam delayed due to lab results not completed at this time. (HCG) (BUN/Creatinine) test not completed at this time. 11/20 00:00 Initial lab(s) drawn, by me, sent to lab. Inserted saline lock: 22 gauge in right aa1 antecubital area, using aseptic technique. Blood collected. 01:11 CT completed. Patient tolerated procedure well. Patient moved to CT via wheelchair. Patient moved back from CT. 01:17 CT Abd/Pelvis - IV Contrast Only In Process Unspecified. EDMS 02:12 No provider procedures requiring assistance completed. IV discontinued, intact, bleeding controlled, No redness/swelling at site. Administered Medications: 00:21 Drug: NS 0.9% 500 ml Route: IV; Rate: bolus; Site: right upper arm; 02:10 Follow up: Response: No adverse reaction; IV Status: Completed infusion 00:23 Drug: morphine 4 mg Route: IVP; Site: right upper arm; 02:10 Follow up: Response: No adverse reaction; Pain is decreased; RASS: Alert and Calm (0) 00:25 Drug: Zofran 4 mg Route: IVP; Site: right upper arm; 02:10 Follow up: Response: No adverse reaction; Nausea is decreased 01:30 Drug: TORadol - Ketorolac 15 mg Route: IVP; Site: right antecubital; 02:10 Follow up: Response: No adverse reaction; Pain is decreased 02:07 Drug: Bentyl 20 mg Route: PO; 02:11 Follow up: Response: No adverse reaction Outcome: 02:00 Discharge ordered by MD. massey 02:12 Discharged to home ambulatory, with friend. 02:12 Condition: stable 02:12 Discharge instructions given to patient, friend, Instructed on discharge instructions, follow up and referral plans. medication usage, POC Demonstrated understanding of instructions, follow-up care, medications, POC Prescriptions given X 2. 02:12 Patient left the ED. Signatures: Dispatcher [employer] EDMS Kala Kessler RN RN aa1 Diogo Morris Aury Estrada RN RN lp1 Eric Thmopson, APPLICATION SECURITY ARCHITECT-C APPLICATION SECURITY ARCHITECT-Cla1 Taryn Ryan RN RN ea Habalo, Winsy Mauro Bhardwaj3
--- NOTE | 2019-11-20 02:02 | EDPHYS ---
Physician Documentation [facility] Name: Adelaide Trinidad Age: 19 yrs Sex: Female : 2000 Arrival Date: 11/19/2019 Time: 22:36 Bed 20 Private MD: ED Physician Juan A Louie HPI: 11/19 23:21 This 19 yrs old Female presents to ER via Ambulatory with complaints of la1 Abdominal Pain. 23:21 The patient presents with abdominal pain in the epigastric area. la1 23:23 Onset: The symptoms/episode began/occurred 3 day(s) ago. The symptoms do not radiate. la1 Associated signs and symptoms: Pertinent positives: diarrhea, Pertinent negatives: nausea and vomiting. The symptoms are described as sharp. Modifying factors: The symptoms are alleviated by nothing, the symptoms are aggravated by pressure, touching the area. Severity of pain: At its worst the pain was moderate. The patient has not experienced similar symptoms in the past. 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 - Social history:: Smoking status: Patient denies any tobacco usage or history of. - Ebola Screening: : No symptoms or risks identified at this time. ROS: 23:24 Constitutional: Negative for fever, chills, and weight loss, Eyes: Negative for injury, la1 pain, redness, and discharge, ENT: Negative for injury, pain, and discharge, Neck: Negative for injury, pain, and swelling, Cardiovascular: Negative for chest pain, palpitations, and edema, Respiratory: Negative for shortness of breath, cough, wheezing, and pleuritic chest pain. 23:24 Back: Negative for injury and pain, : Negative for injury, bleeding, discharge, and swelling, MS/Extremity: Negative for injury and deformity, Skin: Negative for injury, rash, and discoloration, Psych: Negative for depression, anxiety, suicide ideation, homicidal ideation, and hallucinations, Endocrine: Negative for neck swelling, polydipsia, polyuria, polyphagia, and marked weight changes. 23:24 Abdomen/GI: Positive for abdominal pain, diarrhea. Exam: 23:25 Constitutional: This is a well developed, well nourished patient who is awake, alert, la1 and in no acute distress. Head/Face: Normocephalic, atraumatic. Eyes: Pupils equal round and reactive to light, extra-ocular motions intact. Lids and lashes normal. Conjunctiva and sclera are non-icteric and not injected. Cornea within normal limits. Periorbital areas with no swelling, redness, or edema. ENT: Nares patent. No nasal discharge, no septal abnormalities noted. Tympanic membranes are normal and external auditory canals are clear. Oropharynx with no redness, swelling, or masses, exudates, or evidence of obstruction, uvula midline. Mucous membranes moist. Neck: Trachea midlineSupple, full range of motion without nuchal rigidity, or vertebral point tenderness. No Meningismus. Cardiovascular: Regular rate and rhythm with a normal S1 and S2. No gallops, murmurs, or rubs. Normal PMI, no JVD. No pulse deficits. Respiratory: Lungs have equal breath sounds bilaterally, clear to 23:25 Abdomen/GI: Inspection: obese Bowel sounds: normal, in all quadrants, Palpation: soft, in all quadrants, moderate abdominal tenderness, in the suprapubic area and left lower quadrant, Indicators: McBurney's point is not tender, Dodge's sign is negative, Rovsing's sign is negative, Obturator sign is negative, Psoas sign is negative. Vital Signs: 23:01 BP 123 / 87; Pulse 98; Resp 18; Temp 98.4(O); Pulse Ox 100% on R/A; Weight 77.11 kg lp1 (R); Height 4 ft. 11 in. (149.86 cm); Pain 9/10; 11/20 00:00 BP 110 / 73; Pulse 82; Resp 18; Pulse Ox 99% on R/A; wh 01:00 BP 112 / 57; Pulse 88; Resp 18; Pulse Ox 99% ; wh 02:00 BP 109 / 63; Pulse 84; Resp 18; Pulse Ox 96% on R/A; wh 11/19 23:01 Body Mass Index 34.34 (77.11 kg, 149.86 cm) lp1 MDM: 11/19 23:05 Patient medically screened. [facility] 11/20 01:59 Data reviewed: vital signs, nurses notes, lab test result(s), radiologic studies, and la1 as a result, I will discharge patient. Data interpreted: Pulse oximetry: on room air. Counseling: I had a detailed discussion with the patient and/or guardian regarding: the historical points, exam findings, and any diagnostic results supporting the discharge/admit diagnosis, lab results, the need for outpatient follow up, a family practitioner, to return to the emergency department if symptoms worsen or persist or if there are any questions or concerns that arise at home. Special discussion: Based on the patient's Hx, exam, and Dx evaluation, there is no indication for emergent surgery or inpatient Tx. It is understood by the patient/guardian that if the Sx's persist or worsen they need to return immediately for re-evaluation. Based on the history and exam findings, there is no indication for further emergent testing or inpatient evaluation. I discussed with the patient/guardian the need to see the primary care provider for further evaluation of the symptoms. 11/19 23:16 Order name: Basic Metabolic Panel [facility] 11/19 23:16 Order name: CBC with Diff; Complete Time: 00:36 la11/19 23:16 Order name: Creatinine for Radiology; Complete Time: 00:36 la 11/19 23:16 Order name: Hepatic Function; Complete Time: 00:36 la11/19 23:16 Order name: Lipase; Complete Time: 00:36 la11/19 23:17 Order name: Basic Metabolic Panel; Complete Time: 00:36 EDMS 11/19 23:24 Order name: CT Abd/Pelvis - IV Contrast Only la 11/19 23:51 Order name: Urine Microscopic Only; Complete Time: 00:35 la 11/19 23:54 Order name: Urine Dipstick--Ancillary (enter results); Complete Time: 00:36 [facility] 11/19 23:54 Order name: Urine --Ancillary (enter results); Complete Time: 00:36 [facility] 11/20 00:35 Order name: Urine Culture [facility] 11/19 23:16 Order name: IV Saline Lock; Complete Time: 00:00 11/19 23:16 Order name: Labs collected and sent; Complete Time: 00:00 11/19 23:16 Order name: Urine Dipstick-Ancillary (obtain specimen); Complete Time: 00:00 11/19 23:16 Order name: Urine Test (obtain specimen); Complete Time: 00:00 la Administered Medications: 00:21 Drug: NS 0.9% 500 ml Route: IV; Rate: bolus; Site: right upper arm; wh 02:10 Follow up: Response: No adverse reaction; IV Status: Completed infusion 00:23 Drug: morphine 4 mg Route: IVP; Site: right upper arm; wh 02:10 Follow up: Response: No adverse reaction; Pain is decreased; RASS: Alert and Calm (0) 00:25 Drug: Zofran 4 mg Route: IVP; Site: right upper arm; wh 02:10 Follow up: Response: No adverse reaction; Nausea is decreased 01:30 Drug: TORadol - Ketorolac 15 mg Route: IVP; Site: right antecubital; ea 02:10 Follow up: Response: No adverse reaction; Pain is decreased 02:07 Drug: Bentyl 20 mg Route: PO; 02:11 Follow up: Response: No adverse reaction Disposition: 09:25 Co-signature as Attending Physician, Juan A Louie MD I agree with the assessment and antionette plan of care. Disposition: 11/20/19 02:00 Discharged to Home. Impression: Acute cystitis, Abdominal and pelvic pain. - Condition is Stable. - Discharge Instructions: Abdominal Pain, Adult, Urinary Tract Infection, Adult. - Prescriptions for Bentyl 20 mg Oral Tablet - take 1 tablet by ORAL route every 6 hours As needed; 20 tablet. Macrobid 100 mg Oral Capsule - take 1 capsule by ORAL route every 12 hours for 7 days; 14 capsule. - Medication Reconciliation Form, Thank You Letter, Antibiotic Education form. - Follow up: Private Physician; When: 2 - 3 days; Reason: Recheck today's complaints, Re-evaluation by your physician. Follow up: Emergency Department; When: As needed; Reason: Worsening of condition. Signatures: Dispatcher [employer] Juan A Encarnacion MD MD cha Pena, Laura RN RN lp1 Eric Thompson FNP-C JUNIOR JAVA DEVELOPER-Cla1 Taryn Ryan, RN Reyna Alexis ea Corrections: (The following items were deleted from the chart) 02:12 02:00 11/20/2019 02:00 Discharged to Home. Impression: Acute cystitis; Abdominal and wh pelvic pain. Condition is Stable. Forms are Medication Reconciliation Form, Thank You Letter, Antibiotic Education, Prescription Opioid Use. Follow up: Private Physician; When: 2 - 3 days; Reason: Recheck today's complaints, Re-evaluation by your physician. Follow up: Emergency Department; When: As needed; Reason: Worsening of condition. la1
[2019-11-20] MEDS ORDERED: DICYCLOMINE HCL 10 MG CAP ONE (02:08)
[2019-11-20 02:20] VITALS: TEMP 98.4
[2019-11-20 02:24] VITALS: BP 109/63; O2SAT 96
--- NOTE | 2019-11-20 10:25 | RAD REPORT ---
EXAM DESCRIPTION: CT abdomen and pelvis with IV contrast CLINICAL HISTORY: 19-year-old female with abdominal pain, pain across mid to left lower quadrant for three days and coughing for two days, history of prior appendectomy TECHNIQUE: Axial CT imaging of the abdomen and pelvis was performed following the administration of intravenous contrast.. Sagittal and coronal reconstructed images were then performed. The CT stud y is performed according to ALARA (as low as reasonably achievable) or ALARA/IMAGE GENTLY, with autom atic adjustment of mA and/or kV according to patient size. Performed on: 11/20/2019 at 1:02 AM. Comparison: Prior CT abdomen and pelvis performed on 07/05/2019 FINDINGS: Lung bases: The lung bases are clear. Liver: The liver is normal in size and configuration. No focal hepatic abnormalities are identified. Liver attenuation is within normal limits. Spleen: The spleen is normal is size, configuration and attenuation. Gallbladder and bile duct: The gallbladder is well distended and unremarkable. There is no biliary ductal dilatation. Pancreas: The pancreas is grossly normal in size and configuration. Adrenal Glands: The adrenal glands are normal in size and configuration. Kidneys: The kidneys are normal in size and configuration. There is no evidence of hydronephrosis. Th ere is no evidence of nephrolithiasis. No definite solid or cystic renal mass lesions are identified. Stomach: The stomach is grossly normal. There is no definite hiatal hernia. Bowel: The bowel gas pattern is non specific and non obstructive. Appendix: The appendix is surgically absent. Free air: There is no evidence of free air. Free fluid: There is no evidence of free fluid. Vasculature: The aorta is normal in caliber and contour. The inferior vena cava is grossly unremarkab le. Lymphadenopathy: No pathologic lymphadenopathy is identified. There are a few mildly prominent, nonsp ecific right lower quadrant mesenteric lymph nodes. Bladder: The bladder is well distended and smooth in contour. Reproductive: The uterus is grossly within normal limits. Bones: No acute osseous abnormalities are identified. Soft tissues: No focal soft tissue abnormalities are identified. There is a small fat-containing vent ral umbilical hernia. IMPRESSION: 1. No evidence of acute intra-abdominal or intrapelvic pathology. 2. Prior appendectomy. 3. Small fat-containing ventral umbilical hernia. Electronically signed by: Jessica Miller DO 11/20/2019 1:49 AM PRODUCT CRAFTSMAN Due to temporary technical issues with the PACS/Fluency reporting system, reports are being signed by the in house radiologist as a courtesy to ensure prompt reporting. The interpreting radiologist is f ully responsible for the content of the report.
== END 2019-11-20 02:12 | disposition home or self-care (01) ==
LOC: ER 22:34
DX: N30.00 Acute cystitis without hematuria (principal); R10.2 Pelvic and perineal pain; J45.909 Unspecified asthma, uncomplicated; Z88.1 Allergy status to other antibiotic agents; Z88.8 Allergy status to other drugs, medicaments and biological substances
CPT/HCPCS: 96361; 87088; 85025; 87086; 80048; 36415; 81025; 80076; 83690; 74177; 96375; 96374; 99284; Q9967; J7040; J2405; 81003; 81015

== ENCOUNTER 2019-11-24 20:37 | Emergency (ER) | payer OTHER ==
[2019-11-24 21:30] LABS: Urine Blood 3+ (NEG); Urine Glucose NEGATIVE (NEG); Urine Protein NEGATIVE (NEG); Urine pH 6.5 (5.0-7.0)
[2019-11-24] MEDS ORDERED: METHYLPREDNISOLONE 125 MG INJ ONE (21:54)
[2019-11-24] MEDS ORDERED: ALBUTEROL 2.5 MG/3 ML NEB SOL ONE ×2 (21:54→22:39)
[2019-11-24] MEDS ORDERED: predniSONE 20 MG TAB ONE (21:54)
[2019-11-24] MEDS ORDERED: IPRATROPIUM BROM 0.5MG/2.5ML ONE (21:54)
[2019-11-24] MEDS ORDERED: CEFTRIAXONE/SWI 1gm 1 GM/10 ML SYR ONE (21:55)
[2019-11-24] MEDS ORDERED: NA CHLORIDE 0.9% 1,000 ML ONE (21:55)
[2019-11-24] MEDS ORDERED: Magnesium Sulfate 2gm IVPB 2 G/50 ML BAG IV ONE (21:55)
[2019-11-24 22:03] LABS: Absolute Lymphocytes (CBC) 1.8 K/uL (0.7-4.9); Basophils % 1.2 % (0-1.3); Hematocrit 38.3 % (36.0-45.0); Lymphocytes % 28.1 % (15.3-44.8); MPV 9.1 fL (7.6-11.3); RBC Red Blood Cell Count 4.32 M/uL (3.86-4.86)
--- NOTE | 2019-11-24 22:07 | EDPHYS ---
Physician Documentation [facility] Name: Adelaide Trinidad Age: 19 yrs Sex: Female : 2000 Arrival Date: 11/24/2019 Time: 20:38 Bed 23 Private MD: MYLES Physician Juan A Louie HPI: 11/24 21:17 This 19 yrs old Female presents to ER via Ambulatory with complaints of antionette Breathing Difficulty, Chest Pain. 21:17 The patient has shortness of breath at rest, with light activity. Onset: The antionette symptoms/episode began/occurred 3 day(s) ago. 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 - Coronavirus screen:: The patient has NOT traveled to [place], [place], or [place] in the past 14 days. The patient has NOT had contact with known/suspected case of Coronavirus?. - Social history:: Smoking status: Patient denies any tobacco usage or history of. - Ebola Screening: : Patient negative for fever greater than or equal to 101.5 degrees Fahrenheit, and additional compatible Ebola Virus Disease symptoms Patient denies exposure to infectious person Patient denies travel to an Ebola-affected area in the 21 days before illness onset No symptoms or risks identified at this time. ROS: 21:18 Constitutional: Negative for fever, chills, and weight loss, Eyes: Negative for injury, antionette pain, redness, and discharge, ENT: Negative for injury, pain, and discharge, Neck: Negative for injury, pain, and swelling, Cardiovascular: Negative for chest pain, palpitations, and edema, Abdomen/GI: Negative for abdominal pain, nausea, vomiting, diarrhea, and constipation, Back: Negative for injury and pain, : Negative for injury, bleeding, discharge, and swelling, MS/Extremity: Negative for injury and deformity, Skin: Negative for injury, rash, and discoloration, Neuro: Negative for headache, weakness, numbness, tingling, and seizure, Psych: Negative for depression, anxiety, suicide ideation, homicidal ideation, and hallucinations, Allergy/Immunology: Negative for hives, rash, and allergies, Endocrine: Negative for neck swelling, polydipsia, polyuria, polyphagia, and marked weight changes, Hematologic/Lymphatic: Negative for swollen nodes, abnormal bleeding, and unusual bruising. 21:18 Respiratory: Positive for cough, shortness of breath, wheezing, inspiratory, expiratory. Exam: 21:18 Constitutional: This is a well developed, well nourished patient who is awake, alert, antionette and in no acute distress. Head/Face: Normocephalic, atraumatic. Eyes: Pupils equal round and reactive to light, extra-ocular motions intact. Lids and lashes normal. Conjunctiva and sclera are non-icteric and not injected. Cornea within normal limits. Periorbital areas with no swelling, redness, or edema. ENT: Nares patent. No nasal discharge, no septal abnormalities noted. Tympanic membranes are normal and external auditory canals are clear. Oropharynx with no redness, swelling, or masses, exudates, or evidence of obstruction, uvula midline. Mucous membranes moist. Neck: Trachea midline, no thyromegaly or masses palpated, and no cervical lymphadenopathy. Supple, full range of motion without nuchal rigidity, or vertebral point tenderness. No Meningismus. Chest/axilla: Normal chest wall appearance and motion. Nontender with no deformity. No lesions are appreciated. Cardiovascular: Regular rate and rhythm with a normal S1 and S2. No gallops, murmurs, or rubs. Normal PMI, no JVD. No pulse deficits. Abdomen/GI: Soft, non-tender, with normal bowel sounds. No distension or tympany. No guarding or rebound. No evidence of tenderness throughout. Back: No spinal tenderness. No costovertebral tenderness. Full range of motion. Skin: Warm, dry with normal turgor. Normal color with no rashes, no lesions, and no evidence of cellulitis. MS/ Extremity: Pulses equal, no cyanosis. Neurovascular intact. Full, normal range of motion. Neuro: Awake and alert, GCS 15, oriented to person, place, time, and situation. Cranial nerves II-XII grossly intact. Motor strength 5/5 in all extremities. Sensory grossly intact. Cerebellar exam normal. Normal gait. Psych: Awake, alert, with orientation to person, place and time. Behavior, mood, and affect are within normal limits. 21:18 Respiratory: mild respiratory distress is noted, Respirations: labored breathing, that is mild, Breath sounds: decreased breath sounds, rhonchi, wheezing: inspiratory expiratory 21:20 Musculoskeletal/extremity: DVT Exam: No signs of deep vein thrombosis. no pain, no antionette swelling, no tenderness, negative Homans' sign noted on exam, no appreciated bluish discoloration, no erythema, no increased warmth. Vital Signs: 20:42 BP 129 / 99; Pulse 108; Resp 20; Temp 98.6(O); Pulse Ox 99% on R/A; Weight 74.84 kg ca1 (R); Height 4 ft. 11 in. (149.86 cm) (R); 21:45 BP 125 / 68; Pulse 91; Resp 20; Pulse Ox 99% on R/A; vc 23:00 BP 132 / 96; Pulse 135; Resp 20; Pulse Ox 100% on R/A; vc 20:42 Body Mass Index 33.33 (74.84 kg, 149.86 cm) ca1 MDM: 20:56 Patient medically screened. [facility] 21:18 Data reviewed: vital signs, nurses notes, lab test result(s), radiologic studies, plain antionette films. 11/24 21:12 Order name: Urine Dipstick--Ancillary (enter results); Complete Time: 22:03 [facility] 11/24 21:12 Order name: Urine --Ancillary (enter results); Complete Time: 22:03 [facility] 11/24 21:17 Order name: CBC with Diff; Complete Time: 22:06 [facility] 11/24 21:17 Order name: Comprehensive Metabolic Panel; Complete Time: 22:20 [facility] 11/24 21:17 Order name: Flu; Complete Time: 22:20 [facility] 11/24 21:18 Order name: Urine Culture [facility] 11/24 21:19 Order name: Chest Pa And Lat (2 Views) XRAY [facility] 11/24 21:17 Order name: Urine Dipstick-Ancillary (obtain specimen); Complete Time: 21:27 [facility] 11/24 21:17 Order name: Urine Test (obtain specimen); Complete Time: 21:27 [facility] Administered Medications: 22:00 Drug: NS 0.9% 1000 ml Route: IV; Rate: 1 bolus; Site: right upper arm; vc 22:00 Drug: Albuterol - atroVENT (3:1) (2.5 mg - 0.5 mg) 3 ml Route: Nebulizer; vc 23:00 Follow up: Response: No adverse reaction vc 22:00 Drug: SOLU-Medrol 125 mg Route: IVP; Site: right upper arm; vc 23:00 Follow up: Response: No adverse reaction vc 22:00 Drug: predniSONE 60 mg Route: PO; vc 23:00 Follow up: Response: No adverse reaction; Marked relief of symptoms vc 22:00 Drug: Rocephin 1 grams Route: IV; Rate: per protocol; Site: right upper arm; vc 22:15 Drug: KeFLEX 500 mg Route: PO; vc 23:30 Follow up: Response: No adverse reaction vc 22:30 Drug: Potassium Effervescent Tablet 25 mEq Route: PO; vc 23:30 Follow up: Response: No adverse reaction vc 22:30 Drug: Tussionex Pennkinetic ER 5 ml Route: PO; vc 23:30 Follow up: Response: No adverse reaction vc 11/25 00:13 Not Given (Other Intervention Used): Albuterol 2.5 mg Inhalation once vc Disposition: 11/24/19 22:07 Discharged to Home. Impression: Dyspnea, Asthma, Acute upper respiratory infection, unspecified, Hypokalemia. - Condition is Stable. - Discharge Instructions: Asthma, Adult, Potassium Content of Foods, Upper Respiratory Infection, Adult, Cool Mist Vaporizer, Upper Respiratory Infection, Adult, [id number]-[id number], Asthma, Adult, [id number]-[id number], Cough, Adult, Hypokalemia. - Prescriptions for Keflex 500 mg Oral Capsule - take 1 capsule by ORAL route every 6 hours for 7 days; 28 capsule. Albuterol Sulfate 2.5 mg /3 mL (0.083 %) Inhalation Solution for Nebulization - inhale 1 unit by NEBULIZATION route every 8 hours As needed; 1 box. Prednisone 20 mg Oral Tablet - take 2 tablet by ORAL route once daily for 5 days; 10 tablet. Albuterol Sulfate 90 mcg/actuation - inhale 1-2 puff by INHALATION route every 4-6 hours; 1 Inhaler. Cheratussin AC 10- 100 mg/5 mL Oral liquid - take 10 milliliter by ORAL route every 4 hours; 150 milliliter. - Medication Reconciliation Form, Thank You Letter, Antibiotic Education, Prescription Opioid Use form. - Follow up: Private Physician; When: 2 - 3 days; Reason: Recheck today's complaints, Continuance of care, Re-evaluation by your physician. Follow up: Jeremie Armas; When: 2 - 3 days; Reason: Recheck today's complaints, Continuance of care, Re-evaluation by your physician. - Problem is new. - Symptoms have improved. Signatures: Dispatcher [employer] EDSC Juan A Louie MD MD cha Acob, Cheryl, RN RN ca1 Ally Coulter RN RN vc Corrections: (The following items were deleted from the chart) 11/24 22:20 22:07 11/24/2019 22:07 Discharged to Home. Impression: Dyspnea; Asthma; Acute upper antionette respiratory infection, unspecified. Condition is Stable. Discharge Instructions: Asthma, Adult, Upper Respiratory Infection, Adult, Cool Mist Vaporizer, Upper Respiratory Infection, Adult, [id number]-[id number], Asthma, Adult, Hkhk-[id number]-Qczt, Cough, Adult. Prescriptions for Keflex 500 mg Oral Capsule - take 1 capsule by ORAL route every 6 hours for 10 days; 40 capsule, Albuterol Sulfate 2.5 mg /3 mL (0.083 %) Inhalation Solution for Nebulization - inhale 1 unit by NEBULIZATION route every 8 hours As needed; 1 box, Prednisone 20 mg Oral Tablet - take 2 tablet by ORAL route once daily for 5 days; 10 tablet, Albuterol Sulfate 90 mcg/actuation - inhale 1-2 puff by INHALATION route every 4-6 hours; 1 Inhaler. and Forms are Medication Reconciliation Form, Thank You Letter, Antibiotic Education, Prescription Opioid Use. Follow up: Private Physician; When: 2 - 3 days; Reason: Recheck today's complaints, Continuance of care, Re-evaluation by your physician. Follow up: Jeremie Armas; When: 2 - 3 days; Reason: Recheck today's complaints, Continuance of care, Re-evaluation by your physician. Problem is new. Symptoms have improved. [facility] 23:49 22:20 11/24/2019 22:07 Discharged to Home. Impression: Dyspnea; Asthma; Acute upper vc respiratory infection, unspecified; Hypokalemia. Condition is Stable. Discharge Instructions: Asthma, Adult, Upper Respiratory Infection, Adult, Cool Mist Vaporizer, Upper Respiratory Infection, Adult, [id number], Asthma, Adult, Atxp-cl-Kezy, Cough, Adult. Prescriptions for Keflex 500 mg Oral Capsule - take 1 capsule by ORAL route every 6 hours for 7 days; 28 capsule, Albuterol Sulfate 2.5 mg /3 mL (0.083 %) Inhalation Solution for Nebulization - inhale 1 unit by NEBULIZATION route every 8 hours As needed; 1 box, Prednisone 20 mg Oral Tablet - take 2 tablet by ORAL route once daily for 5 days; 10 tablet, Albuterol Sulfate 90 mcg/actuation - inhale 1-2 puff by INHALATION route every 4-6 hours; 1 Inhaler. and Forms are Medication Reconciliation Form, Thank You Letter, Antibiotic Education, Prescription Opioid Use. Follow up: Private Physician; When: 2 - 3 days; Reason: Recheck today's complaints, Continuance of care, Re-evaluation by your physician. Follow up: Jeremie Armas; When: 2 - 3 days; Reason: Recheck today's complaints, Continuance of care, Re-evaluation by your physician. Problem is new. Symptoms have improved. antionette
--- NOTE | 2019-11-24 22:07 | ER ---
Nurse's Notes [facility] Name: Adelaide Trinidad Age: 19 yrs Sex: Female : 2000 Arrival Date: 11/24/2019 Time: 20:38 Bed 23 Private MD: Diagnosis: Dyspnea;Asthma;Acute upper respiratory infection, unspecified;Hypokalemia Presentation: 11/24 20:38 Presenting complaint: Patient states: " since 3 days ago but today has been the ca1 worst. I used my inhaler and breathing treatment around 6pm but did not give any relief." Cough since 3 days ago. Denies fever. Pt also reports chest pain that is described as stabbing and worse when coughing. Transition of care: patient was not received from another setting of care. Onset of symptoms was November 24, 2019. Risk Assessment: Do you want to hurt yourself or someone else? Patient reports no desire to harm self or others. Initial Sepsis Screen: Does the patient meet any 2 criteria? No. Patient's initial sepsis screen is negative. Does the patient have a suspected source of infection? No. Patient's initial sepsis screen is negative. Care prior to arrival: None. 20:38 Method Of Arrival: Ambulatory ca1 20:38 Acuity: LUIZ 3 ca1 Triage Assessment: 20:42 Respiratory: Reports shortness of breath Onset: The symptoms/episode began/occurred ca1 today, the patient has moderate shortness of breath. 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 - Coronavirus screen:: The patient has NOT traveled to [place], [place], or [place] in the past 14 days. The patient has NOT had contact with known/suspected case of Coronavirus?. - Social history:: Smoking status: Patient denies any tobacco usage or history of. - Ebola Screening: : Patient negative for fever greater than or equal to 101.5 degrees Fahrenheit, and additional compatible Ebola Virus Disease symptoms Patient denies exposure to infectious person Patient denies travel to an Ebola-affected area in the 21 days before illness onset No symptoms or risks identified at this time. Screenin:30 Abuse screen: Denies threats or abuse. Nutritional screening: No deficits noted. vc Tuberculosis screening: No symptoms or risk factors identified. Fall Risk None identified. Assessment: 22:00 General: Appears in no apparent distress. Behavior is calm, cooperative, appropriate vc for age. Pain: Complains of pain in chest related to cough. Neuro: Level of Consciousness is awake, alert, obeys commands, Oriented to person, place, time. Cardiovascular: Capillary refill < 3 seconds Patient's skin is warm and dry. Respiratory: Respiratory effort is labored, Breath sounds with wheezes bilaterally. GI: No signs and/or symptoms were reported involving the gastrointestinal system. : No signs and/or symptoms were reported regarding the genitourinary system. EENT: No signs and/or symptoms were reported regarding the EENT system. Derm: Skin is dry. Musculoskeletal: Circulation, motion, and sensation intact. Range of motion: intact in all extremities. 23:00 Reassessment: Patient and/or family updated on plan of care and expected duration. Pain vc level reassessed. patients breathing is improving, wheezing is less audible. 23:40 Reassessment: Patient and/or family updated on plan of care and expected duration. Pain vc level reassessed. Patient is alert, oriented x 3, equal unlabored respirations, skin warm/dry/pink. Patient states symptoms have improved. Vital Signs: 20:42 BP 129 / 99; Pulse 108; Resp 20; Temp 98.6(O); Pulse Ox 99% on R/A; Weight 74.84 kg ca1 (R); Height 4 ft. 11 in. (149.86 cm) (R); 21:45 BP 125 / 68; Pulse 91; Resp 20; Pulse Ox 99% on R/A; vc 23:00 BP 132 / 96; Pulse 135; Resp 20; Pulse Ox 100% on R/A; vc 20:42 Body Mass Index 33.33 (74.84 kg, 149.86 cm) ca1 ED Course: 20:38 Patient arrived in ED. jg7 20:41 Triage completed. ca1 20:42 Arm band placed on right wrist. ca1 20:56 Juan A Louie MD is Attending Physician. antionette 21:26 Ally Coulter, JAZ is Primary Nurse. vc 21:55 Chest Pa And Lat (2 Views) XRAY In Process Unspecified. EDMS 22:07 Jeremie Armas MD is Referral Physician. antionette 23:48 No provider procedures requiring assistance completed. IV discontinued, intact, vc bleeding controlled, No redness/swelling at site. Pressure dressing applied. Administered Medications: 22:00 Drug: NS 0.9% 1000 ml Route: IV; Rate: 1 bolus; Site: right upper arm; vc 22:00 Drug: Albuterol - atroVENT (3:1) (2.5 mg - 0.5 mg) 3 ml Route: Nebulizer; vc 23:00 Follow up: Response: No adverse reaction vc 22:00 Drug: SOLU-Medrol 125 mg Route: IVP; Site: right upper arm; vc 23:00 Follow up: Response: No adverse reaction vc 22:00 Drug: predniSONE 60 mg Route: PO; vc 23:00 Follow up: Response: No adverse reaction; Marked relief of symptoms vc 22:00 Drug: Rocephin 1 grams Route: IV; Rate: per protocol; Site: right upper arm; vc 22:15 Drug: KeFLEX 500 mg Route: PO; vc 23:30 Follow up: Response: No adverse reaction vc 22:30 Drug: Potassium Effervescent Tablet 25 mEq Route: PO; vc 23:30 Follow up: Response: No adverse reaction vc 22:30 Drug: Tussionex Pennkinetic ER 5 ml Route: PO; vc 23:30 Follow up: Response: No adverse reaction vc 11/25 00:13 Not Given (Other Intervention Used): Albuterol 2.5 mg Inhalation once vc Outcome: 11/24 22:07 Discharge ordered by . antionette 23:48 Discharged to home ambulatory, with friend. vc 23:48 Condition: improved 23:48 Discharge instructions given to patient, Instructed on discharge instructions, follow up and referral plans. Demonstrated understanding of instructions, follow-up care, medications, Prescriptions given X 4. 23:49 Patient left the ED. vc Signatures: Dispatcher [employer] EDMS Juan A Louie MD MD cha Acob, Cheryl, RN RN [facility] Baylee Pacheco jg7 Ally Coulter RN RN vc Corrections: (The following items were deleted from the chart) 20:44 20:38 Presenting complaint: Patient states: " since 3 days ago but today has been ca1 the worst. I used my inhaler and breathing treatment around 6pm but did not give any relief." Cough since 3 days ago. Denies fever. ca1 11/25 00:31 00:28 Respiratory: Airway vc vc 00:35 00:31 Cardiovascular: Rhythm is vc vc
[2019-11-24 22:12] LABS: Albumin 3.2 g/dL (3.4-5.0); Bilirubin Total 0.1 mg/dL (0.2-1.0); Potassium 3.4 mmol/L (3.5-5.1); Protein, Total 6.5 g/dL (6.4-8.2)
[2019-11-24] MEDS ORDERED: CEPHALEXIN 250 MG CAP ONE (22:41)
[2019-11-24] MEDS ORDERED: POTASSIUM 25 MEQ EFFERV TAB ONE (22:41)
[2019-11-24] MEDS ORDERED: LEVALBUTEROL 1.25 MG/3 ML NEB ONE (22:50)
[2019-11-24] MEDS ORDERED: HYDROCODONE/CHLORPHEN 5 ML/OSYR ONE (22:57)
[2019-11-24 23:54] VITALS: BP 129/99; TEMP 98.6; O2SAT 99
--- NOTE | 2019-11-25 07:53 | RAD REPORT ---
EXAM DESCRIPTION: Jarrett Prince (2 Views)11/24/2019 9:58 pm CLINICAL HISTORY: Cough COMPARISON: June 2019 FINDINGS: The lungs appear clear of acute infiltrate. The heart is normal size IMPRESSION: No acute abnormalities displayed
== END 2019-11-24 23:49 | disposition home or self-care (01) ==
LOC: ER 20:37
DX: J06.9 Acute upper respiratory infection, unspecified (principal); J45.909 Unspecified asthma, uncomplicated; E87.6 Hypokalemia; Z88.1 Allergy status to other antibiotic agents; Z88.3 Allergy status to other anti-infective agents
CPT/HCPCS: 87088; 85025; 87086; 36415; 81025; 81003; 80053; 87804 ×2; 71046; 94640; 96375; 96374; 99284; J7512; J3475; J0696; J7030; J2930

== ENCOUNTER 2019-12-16 01:57 | Emergency (ER) | payer OTHER ==
--- OUTSIDE RECORDS SUMMARY | 2019-12-16 01:58 | XMS REPORT ---
:2000 [facility] [address] [place] [address] [place] [id number] Care Team Providers Name Role Phone Unavailable Unavailable Unavailable Problems This patient has no known problems. Allergies, Adverse Reactions, Alerts This patient has no known allergies or adverse reactions. Medications This patient has no known medications.
--- OUTSIDE RECORDS SUMMARY | 2019-12-16 01:59 | XMS REPORT | Summary of Care ---
:1999 Author Organization [facility] Address [address] [place] [address] Care Team Providers Name Role Phone Corby Burnett Primary Care Provider Reason for Referral Radiology Services (STAT) Status Reason Specialty Diagnoses / Referred By Referred To Procedures Contact Contact New Request Diagnostic Diagnoses Exacerbation of asthma, unspecified asthma severity, unspecified whether persistent Vincent, Radiology Procedures XR CHEST 2 VW Shinta, AGRICULTURAL REAL ESTATE AGENT [address] [place] [id number] Reason for Visit Reason Comments Cough Auth/Cert Status Reason Specialty Diagnoses / Referred By Referred To Procedures Contact Contact Emergency Medicine [facility]-Emergency Dept [address] [place] [phone] Encounter Details Date Type Department Care Team Description 12/03/2019 Emergency [facility] Department Vincent, Shinta, Exacerbation of asthma, unspecified asthma severity, unspecified whether persistent (Primary Dx); [address] [place] [address] Chest pain, unspecified type; [address] Tachycardia; [place], [place] [id number] Cough [id number] [place], [place] [phone] [address] Allergies Active Allergy Reactions Severity Noted Date Comments Azithromycin Other - See comments 11/19/2017 Tachycardia and numbness of lower extremities documented as of this encounter (statuses as of 12/03/2019) Medications Medication Sig Dispensed Refills Start Date End Date Status MONTELUKAST SODIUM Take 10 mg by 0 Active (SINGULAIR ORAL) mouth daily. CETIRIZINE HCL Take 10 mg by 0 Active (ZYRTEC ORAL) mouth daily. FLUOXETINE HCL Take 10 mg by 0 Active (PROZAC ORAL) mouth at bedtime. Mometasone-Formoterol Inhale 1 Puff 2 13 g 2 11/19/2017 Active (DULERA) 100-5 (two) times mcg/actuation inhaler daily. predniSONE 20 mg Take 1 tablet by 4 tablet 0 11/19/2017 Active tablet mouth daily. buPROPion XL Take 300 mg by 0 Active (WELLBUTRIN XL) 300 mouth daily. mg 24 hr tablet predniSONE 10 mg Take 5 tablets by 45 tablet 0 02/09/2018 Active tablet mouth daily. 5 tabs once daily for 3 days 4 tabs once daily for 3 days 3 tabs once daily for 3 days 2 tabs once daily for 3 days 1 tab once daily for 3 days albuterol 2.5 mg /3 Inhale 3 mL every 180 mL 0 02/09/2018 Active mL (0.083 %) 4 (four) hours as nebulizer solution needed for Wheezing or Shortness of Breath. albuterol 90 Inhale 2 Puffs 8.5 g 0 12/03/2019 Active mcg/actuation every 4 (four) inhalerIndications: hours as needed Exacerbation of for Wheezing or asthma, unspecified Shortness of asthma severity, Breath. unspecified whether persistent predniSONE 20 mg Take 2 tablets by 8 tablet 0 12/04/2019 12/08/2019 Active tabletIndications: mouth daily for 4 Exacerbation of days. asthma, unspecified asthma severity, unspecified whether persistent fluticasone Inhale 1 Puff 2 12 g 0 12/03/2019 Active propionate (FLOVENT (two) times HFA) 110 daily. mcg/actuation inhalerIndications: Exacerbation of asthma, unspecified asthma severity, unspecified whether persistent documented as of this encounter (statuses as of 12/03/2019) Active Problems Problem Noted Date Asthma attack 02/08/2018 Moderate asthma with exacerbation 11/19/2017 Obesity (BMI 30-39.9) 11/19/2017 Asthma exacerbation 11/19/2017 Sinus tachycardia 11/19/2017 documented as of this encounter (statuses as of 12/03/2019) Immunizations Name Administration Dates Next Due DTAP 01/31/2017 HPV 01/31/2017 Hep B, Adol or Pedi Dosage 01/31/2017 Pneumococcal Polysaccharide, PPSV23 (PNEUMOVAX) 02/09/2018 documented as of this encounter Social History Tobacco Use Types Packs/Day Years Used Date Never Smoker Smokeless Tobacco: Never Used Sex Assigned at Date Recorded Not on file Job Start Date Occupation Industry Not on file Not on file Not on file Travel History Travel Start Travel End No recent travel history available. documented as of this encounter Last Filed Vital Signs Vital Sign Reading Time Taken Comments Blood Pressure 122/79 12/03/2019 9:00 PM FILBERT GROWER Pulse 86 12/03/2019 9:00 PM FILBERT GROWER Temperature 36.9 C (98.5 F) 12/03/2019 8:00 PM FILBERT GROWER Respiratory Rate 18 12/03/2019 9:00 PM FILBERT GROWER Oxygen Saturation 99% 12/03/2019 9:00 PM FILBERT GROWER Inhaled Oxygen Concentration - - Weight 81.6 kg (179 lb 14.2 oz) 12/03/2019 6:38 PM FILBERT GROWER Height - - Body Mass Index - - documented in this encounter Discharge Instructions Chris Rodrigez FNP - 12/03/2019DIAGNOSIS 1. Cough, wheezing, asthma exacerbation NO LIFE-THREATENING FINDINGS ON TODAY'S EXAM. PROCEDURES IN THE ER TODAY: Chest x ray, EKG, blood test MEDICATIONS ADMINISTERED IN THE ER TODAY: Duoneb nebulization, iv normal saline, and solumedrol IV YOUR PRESCRIPTIONS AND [id number] MEDICATION RECOMMENDATIONS: Flovent inhaler Albuterol inhaler Prednisone SPECIAL CARE INSTRUCTIONS: Take medications as prescribed Follow up with pulmonology specialist in 3-5 days FOLLOW-UP RECOMMENDATIONS: RECOMMEND FOLLOW-UP WITH A PRIMARY CARE PROVIDER OR SPECIALIST IN 2-5 DAYS, ESPECIALLY IF NO IMPROVEMENT IN SYMPTOMS. TO FOLLOW-UP WITHIN THE [facility], TRY THESE OPTIONS (CLINIC APPOINTMENTS AVAILABLE ON [id number] BASIS): 1. SCHEDULE AN APPOINTMENT ONLINE AT [facility] 2. OR CALL THE [facility]ESS CENTER AT OR 3. OR CALL YOUR [facility] PHYSICIAN'S OFFICE DIRECTLY IF YOU ARE ALREADY AN ESTABLISHED [facility] PATIENT. OR, YOU MAY FOLLOW-UP WITH A PROVIDER OF YOUR CHOICE, SUCH : 1. A PHYSICIAN OF YOUR CHOICE 2. [facility], . LOCATIONS IN [facility] 3. [facility], [address] [facility], [place], [place]; RETURN TO ER FOR WORSENING OF SYMPTOMS. Or any new symptoms AttachmentsThe following attachments cannot be sent through Care Everywhere.Asthma, Understanding (Bangladeshi)Asthma: Inhaler, Caring for (Bangladeshi) documented in this encounter Plan of Treatment Health Maintenance Due Date Last Done Comments MENINGOCOCCAL B VACCINES (1 of 2 - 2009 Risk Bexsero 2-dose series) VARICELLA VACCINES (1 of 2 - 13+ 01/21/2012 2-dose series) CHLAMYDIA SCREENING 2015 HPV VACCINES (2 - Female 3-dose 02/28/2017 01/31/2017 series) INFLUENZA VACCINE (#1) 2019 DTaP,Tdap,and Td Vaccines (2 - 01/31/2027 01/31/2017 Tdap) PNEUMOCOCCAL 0-64 YEARS COMBINED Aged Out 02/09/2018 No longer eligible based on SERIES patient's age to complete this topic MENINGOCOCCAL VACCINE Aged Out No longer eligible based on patient's age to complete this topic documented as of this encounter Procedures Procedure Name Priority Date/Time Associated Diagnosis Comments D-DIMER STAT 12/03/2019 8:03 Exacerbation of Results for this PM FILBERT GROWER asthma, unspecified procedure are in asthma severity, the results unspecified whether section. persistent Chest pain, unspecified type Tachycardia TROPONIN I STAT 12/03/2019 8:03 Exacerbation of Results for this PM FILBERT GROWER asthma, unspecified procedure are in asthma severity, the results unspecified whether section. persistent Chest pain, unspecified type Tachycardia EKG-12 LEAD AMALIA 12/03/2019 7:46 PM FILBERT GROWER CBC WITH DIFFERENTIAL STAT 12/03/2019 7:43 Exacerbation of Results for this PM FILBERT GROWER asthma, unspecified procedure are in asthma severity, the results unspecified whether section. persistent CBC WITH DIFFERENTIAL STAT 12/03/2019 7:43 Exacerbation of Results for this PM FILBERT GROWER asthma, unspecified procedure are in asthma severity, the results unspecified whether section. persistent BASIC METABOLIC PANEL STAT 12/03/2019 7:43 Exacerbation of Results for this (NA, K, CL, CO2, PM FILBERT GROWER asthma, unspecified procedure are in GLUCOSE, BUN, asthma severity, the results CREATININE, CA) unspecified whether section. persistent XR CHEST 2 VW STAT 12/03/2019 7:16 Exacerbation of Results for this PM FILBERT GROWER asthma, unspecified procedure are in asthma severity, the results unspecified whether section. persistent POCT TEST AMALIA 12/03/2019 6:55 Exacerbation of Results for this PM FILBERT GROWER asthma, unspecified procedure are in asthma severity, the results unspecified whether section. persistent documented in this encounter Results D-DIMER (12/03/2019 8:03 PM FILBERT GROWER) D-DIMER 0.30 <0.50 g/mL (FEU) [facility] Specimen Blood - VENOUS Narrative Performed At This test may be used in conjunction with a clinical pretest [facility] probability (PTP) assessment model to exclude venous thromboembolism (VTE) in patients suspected of deep venous thrombosis (DVT) and pulmonary embolism (PE) A D-Dimer value less than 0.50 g/ml (FEU) has a negative predicative value of 96 to 100% (95% CI)and 97 to 100% (95% CI) as an aid in the diagnosis of deep vein thrombosis (DVT) and pulmonary embolism when there is low or moderate pretest probability of PE or DVT. D-Dimer values are expressed in initial fibrinogen equivalent units (FEU)" The assay results should be used with other information, including the clinical context, in forming a diagnosis. Performing Organization Address City/State/Zipcode Phone Number [facility] CLIA: [id number], [address] [place] [id number] [phone] [facility] [place] TROPONIN I (12/03/2019 8:03 PM FILBERT GROWER) TROPONIN I 0.000 <=0.034 ng/mL [facility] Specimen Blood - VENOUS Narrative Performed At Equal or Less than 0.034 ng/ml---Normal [facility] Note: Cardiac troponin begins to rise 3-4 hours after the onset of ischemia. Repeat in 4-6 hours if the sample was drawn within 3-4 hours of the onset of the symptom and found normal. Between 0.035 and 0.120 ng/mL--- Borderline. Questionable myocardial injury or necrosis Note: Serial measurement may be necessary to confirm or exclude the diagnosis of myocardial injury or necrosis; Clinical correlation (symptoms, EKGs, imaging studies, and others) required; Repeat in 4-6 hours if clinically indicated. Equal or Higher than 0.121 ng/mL---Abnormal. Myocardial Injury or Necrosis Likely Biotin has been reported to cause a negative bias, interpret results relative to patient's use of biotin. Performing Organization Address City/State/Zipcode Phone Number [facility] CLIA: [id number], [address] [place] [address] [facility] CBC WITH DIFFERENTIAL (12/03/2019 7:43 PM FILBERT GROWER) WBC 8.06 4.30 - 11.10 [facility] 10*3/L SERVICES RBC 4.41 3.93 - 5.25 [facility] 10*6/L SERVICES HGB 12.9 11.6 - 15.0 [facility] g/dL SERVICES HCT 39.8 35.7 - 45.2 % [facility] MCV 90.2 80.6 - 95.5 fL [facility] MCH 29.3 25.9 - 32.8 pg [facility] MCHC 32.4 31.6 - 35.1 [facility] g/dL SERVICES RDW-SD 44.6 39.0 - 49.9 fL [facility] RDW-CV 13.4 12.0 - 15.5 % [facility] PLT 247 166 - 358 [facility] 10*3/L SERVICES MPV 10.2 9.5 - 12.9 fL [facility] NRBC/100 WBC 0.0 0.0 - 10.0 /100 [facility] WBCs SERVICES NRBC x10^3 <0.01 10*3/L [facility] GRAN MAT (NEUT) % 65.9 % [facility] IMM GRAN % 0.20 % [facility] LYMPH % 19.9 % [facility] MONO % 7.7 % [facility] EOS % 5.8 % [facility] BASO % 0.5 % [facility] GRAN MAT x10^3(ANC) 5.31 1.88 - 7.09 [facility] 10*3/uL SERVICES IMM GRAN x10^3 <0.03 0.00 - 0.06 [facility] 10*3/uL SERVICES LYMPH x10^3 1.60 1.32 - 3.29 [facility] 10*3/uL SERVICES MONO x10^3 0.62 0.33 - 0.92 [facility] 10*3/uL SERVICES EOS x10^3 0.47 (H) 0.03 - 0.39 [facility] 10*3/uL SERVICES BASO x10^3 0.04 0.01 - 0.07 [facility] 10*3/uL SERVICES Specimen Blood - VENOUS Performing Organization Address City/State/Zipcode Phone Number [facility] CLIA: [id number], [address] [place] [address] [facility] BASIC METABOLIC PANEL (NA, K, CL, CO2, GLUCOSE, BUN, CREATININE, CA) (2019 7:43 PM FILBERT GROWER) NA 136 135 - 145 [facility] mmol/L SERVICES K 4.0Comment: 3.5 - 5.0 [facility] Slight hemolysis mmol/L SERVICES CL 105 98 - 108 [facility] mmol/L SERVICES CO2 TOTAL 24 23 - 31 [facility] mmol/L SERVICES AGAP 7 2 - 16 [facility] BUN 5 (L)Comment: 7 - 23 mg/dL [facility] Slight hemolysis SERVICES GLUCOSE 89 70 - 110 [facility] mg/dL SERVICES CREATININE 0.73 0.50 - 1.04 [facility] mg/dL SERVICES CALCIUM 9.5 8.6 - 10.6 [facility] mg/dL SERVICES eGFR Calculation 101.6 mL/min/1.73m2 [facility] (Non- SERVICES Chinese) eGFR Calculation 123.2 mL/min/1.73m2 [facility] () SERVICES Specimen Blood - VENOUS Narrative Performed At Association of Glomerular Filtration Rate (GFR) and Staging [facility] of Kidney Disease* + + + + | GFR (mL/min/1.73 m2) | With Kidney Damage | Without Kidney Damage + + + + | >90 | Stage one | Normal + + + + | 60-89 | Stage two | Decreased GFR + + + + | 30-59 | Stage three | Stage three + + + + | 15-29 | Stage four | Stage four + + + + | <15 (or dialysis) | Stage five | Stage five + + + + *Each stage assumes the associated GFR level has been in effect for at least three months. Stages 1 to 5, with or without kidney disease, indicate chronic kidney disease. Notes: Determination of stages one and two (with eGFR >59mL/min/1.73 m2) requires estimation of kidney damage for at least three months as defined by structural or functional abnormalities of the kidney, manifested by either: Pathological abnormalities or Markers of kidney damage (including abnormalities in the composition of the blood or urine or abnormalities in imaging tests). Performing Organization Address City/State/Zipcode Phone Number [facility] CLIA: [id number], [address] [place] [address] [phone] [facility] XR CHEST 2 VW (12/03/2019 7:16 PM FILBERT GROWER) Specimen Impressions Performed At PACS/VR/DOSE No acute cardiopulmonary process. Preliminary Report Dictated by Resident: Brandon Munoz MD., have reviewed this study and agree with the above report. Narrative Performed At XR CHEST 2 VW PACS/VR/DOSE HISTORY: COUGH AND SOB COMPARISON: None FINDINGS: The lungs are well expanded and clear. The costophrenic angles are clear. The heart is normal in size. No pneumothorax is found. Procedure Note [facility], Radiant Results Inft User - 12/03/2019 7:53 PM FILBERT GROWER XR CHEST 2 VW HISTORY: COUGH AND SOB COMPARISON: None FINDINGS: The lungs are well expanded and clear. The costophrenic angles are clear. The heart is normal in size. No pneumothorax is found. IMPRESSION No acute cardiopulmonary process. Preliminary Report Dictated by Resident: Alma Rodarte I, Brandon Hopper MD., have reviewed this study and agree with the above report. Performing Organization Address [facility]/Zipcode Phone Number [facility]/VR/[facility] POCT TEST (12/03/2019 6:55 PM FILBERT GROWER) POCT PREG negative On board controls acceptable present with C Line POCT PREG LOT # [id number] POCT PREG TEST DATE 04/26/2021 Specimen Urine - URINE, CLEAN CATCH documented in this encounter Visit Diagnoses Diagnosis Exacerbation of asthma, unspecified asthma severity, unspecified whether persistent - Primary Chest pain, unspecified type Tachycardia Tachycardia, unspecified Cough documented in this encounter Administered Medications Medication Order MAR Action Action Date Dose Rate Site ipratropium-albuterol (DUONEB) 0.5 Given 12/03/2019 6:52 PM FILBERT GROWER 3 mL mg-3 mg(2.5 mg base)/3 mL nebulizer solution 3 mL 3 mL, Inhalation, ONCE, 1 dose, Barbara 12/03/19 at 1900, AMALIA ipratropium-albuterol (DUONEB) 0.5 mg-3 mg(2.5 Given 12/03/2019 9:05 PM FILBERT GROWER 3 mL mg base)/3 mL nebulizer solution 3 mL 3 mL, Inhalation, ONCE, 1 dose, Barbara 12/03/19 at 2045, AMALIA ketorolac (TORADOL) injection 30 mg Given 12/03/2019 8:03 PM FILBERT GROWER 30 mg 30 mg, Slow IV Push, ONCE, 1 dose, Barbara 12/03/19 at 2000, AMALIA, solar field installation crew member approving Restricted medication: CHRIS BARRERA methylprednisolone sod succ (SOLU-MEDROL) Given 12/03/2019 7:43 PM FILBERT GROWER 125 mg injection 125 mg 125 mg, IV Piggyback, ONCE, 1 dose, Barbara 12/03/19 at 1900, STAT NaCl 0.9% (NS) IV infusion 1,000 New Bag 12/03/2019 8:03 PM FILBERT GROWER 1,000 mL 999 mL/hr mL at 999 mL/hr, Intravenous, ONCE, 1 dose, Barbara 12/03/19 at 2000, AMALIA documented in this encounter ([place]) [place] [address] documented as of this encounter
--- OUTSIDE RECORDS SUMMARY | 2019-12-16 01:59 | XMS REPORT | Summary of Care ---
:1999 Author Organization [facility] Address [address] [place] [address] Care Team Providers Name Role Phone Corby Burnett Primary Care Provider Reason for Visit Reason Comments Other possible facial abscess Auth/Cert Status Reason Specialty Diagnoses / Referred By Referred To Procedures Contact Contact Emergency [facility] [address] [place] [address] [place] [address] Encounter Details Date Type Department Care Team Description 12/07/2019 Emergency [facility]-Emergency Nancie Abreu R, Facial abscess ( Primary Dx); Department EMNP Facial cellulitis [address] [place] [address] [place] [id number] [place] [address] [phone] Allergies Active Allergy Reactions Severity Noted Date Comments Doxycycline Nausea and/or Vomiting 12/07/2019 Sulfamethoprim Ds Hives 12/07/2019 Azithromycin Other - See comments 11/19/2017 Tachycardia and numbness of lower extremities documented as of this encounter (statuses as of 12/07/2019) Medications Medication Sig Dispensed Refills Start Date End Date Status MONTELUKAST SODIUM Take 10 mg by 0 Active (SINGULAIR ORAL) mouth daily. CETIRIZINE HCL Take 10 mg by 0 Active (ZYRTEC ORAL) mouth daily. FLUOXETINE HCL Take 10 mg by 0 Active (PROZAC ORAL) mouth at bedtime. Mometasone-Formotero Inhale 1 Puff 2 13 g 2 11/19/2017 Active l (DULERA) 100-5 (two) times mcg/actuation daily. inhaler predniSONE 20 mg Take 1 tablet by [...] asthma, unspecified asthma severity, unspecified whether persistent clindamycin 150 mg Take 3 capsules 63 capsule 0 12/07/2019 12/14/2019 Active capsuleIndications: by mouth 3 Facial abscess, (three) times Facial cellulitis daily for 7 days. mupirocin 2 % Apply to area(s) 22 g 0 12/07/2019 Active ointmentIndications: 3 (three) times Facial abscess, daily. Facial cellulitis documented as of this encounter (statuses as of 12/07/2019) Active Problems Problem Noted Date Asthma attack 02/08/2018 Moderate asthma with exacerbation 11/19/2017 Obesity (BMI 30-39.9) 11/19/2017 Asthma exacerbation 11/19/2017 Sinus tachycardia 11/19/2017 documented as of this encounter (statuses as of 12/07/2019) Immunizations Name Administration Dates Next Due DTAP [...] Sign Reading Time Taken Comments Blood Pressure 121/77 12/07/2019 6:14 PM TAFFY PULLER Pulse 89 12/07/2019 6:14 PM TAFFY PULLER Temperature 36.8 C (98.3 F) 12/07/2019 6:14 PM TAFFY PULLER Respiratory Rate 18 12/07/2019 6:14 PM TAFFY PULLER Oxygen Saturation 98% 12/07/2019 6:14 PM TAFFY PULLER Inhaled Oxygen Concentration - - Weight 81.6 kg (180 lb) 12/07/2019 4:11 PM TAFFY PULLER Height - - Body Mass Index - - documented in this encounter Discharge Instructions Nancie Cantu EMNP - 12/07/2019NO LIFE-THREATENING FINDINGS ON TODAY'S EXAM. SPECIAL INSTRUCTIONS: 1. Warm compresses at least 4 times a day 2. May take motrin 600mg every 6 hours with food for pain 3. May take 2 tylenol every 4 hours for pain 4. Take all antibiotics 5. See attached information FOLLOW-UP RECOMMENDATIONS: RECOMMEND FOLLOW-UP WITH A PRIMARY CARE PROVIDER OR SPECIALIST IN 2-5 DAYS, ESPECIALLY IF NO IMPROVEMENT IN SYMPTOMS. TO FOLLOW-UP WITHIN THE [facility], TRY THESE OPTIONS (CLINIC APPOINTMENTS AVAILABLE ON [id number] BASIS): 1. SCHEDULE AN APPOINTMENT ONLINE AT WWW[facility] 2. OR CALL THE [facility] ACCESS CENTER AT OR 3. OR CALL YOUR [facility] PHYSICIAN'S OFFICE DIRECTLY IF YOU ARE ALREADY AN ESTABLISHED [facility] PATIENT. OR, YOU MAY FOLLOW-UP WITH A PROVIDER OF YOUR CHOICE, SUCH : 1. A PHYSICIAN OF YOUR CHOICE 2. [facility] AND [facility], . LOCATIONS IN [facility] [place] 3. [facility], [address], [place]; RETURN TO ER FOR WORSENING OF SYMPTOMS. AttachmentsThe following attachments cannot be sent through Care Everywhere.Cellulitis, Facial (Paraguayan)Cellulitis, Discharge Instructions for ( [place]aguayan)Abscess, Antibiotic Treatment Only (Paraguayan)Clindamycin capsules ( [place]aguayan)Mupirocin skin cream or ointment (Paraguayan)documented in this encounter Plan of Treatment Health Maintenance Due Date Last Done Comments VARICELLA VACCINES (1 of 2 - 01/21/2000 2-dose childhood series) MENINGOCOCCAL B VACCINES (1 of 2 - 2009 Risk Bexsero 2-dose series) WELL CARE VISIT: 12-21 YEARS 2011 (yearly) CHLAMYDIA SCREENING 2015 HPV VACCINES (2 - Female 3-dose 02/28/2017 01/31/2017 series) INFLUENZA VACCINE (#1) 2019 DTaP,Tdap,and Td Vaccines (2 - 01/31/2027 01/31/2017 Tdap) PNEUMOCOCCAL 0-64 YEARS COMBINED Completed 02/09/2018 SERIES MENINGOCOCCAL VACCINE Aged Out No longer eligible based on patient's age to complete this topic documented as of this encounter Procedures Procedure Name Priority Date/Time Associated Diagnosis Comments ASSIGNMENT OF BENEFITS Routine 12/07/2019 6:18 PM TAFFY PULLER ASSIGNMENT OF BENEFITS Routine 12/07/2019 6:16 PM TAFFY PULLER NOTICE OF PRIVACY Routine 12/07/2019 6:15 PM PRACTICES TAFFY PULLER CONSENT/REFUSAL FOR Routine 12/07/2019 4:01 PM DIAGNOSIS AND TREATMENT TAFFY PULLER documented in this encounter Results Not on filedocumented in this encounter Visit Diagnoses Diagnosis Facial abscess - Primary Cellulitis and abscess of face Facial cellulitis Cellulitis and abscess of face documented in this encounter ([place]) [place] [address] documented as of this encounter
--- OUTSIDE RECORDS SUMMARY | 2019-12-16 01:59 | XMS REPORT | Summary of Care ---
:2000 Author Organization [facility] - [facility] Address [address] [place] [id number] Care Team Providers Name Role Phone Corby Burnett Primary Care Provider Reason for Referral Radiology Services (STAT) Status Reason Specialty Diagnoses / Referred By Referred To Procedures Contact Contact New Request Diagnostic Diagnoses Cough Jose Reynoso Radiology Procedures XR CHEST 1 MD nAais MALDONADO [address] [id number] Reason for Visit Reason Comments Asthma Auth/Cert Status Reason Specialty Diagnoses / Referred By Referred To Procedures Contact Contact [facility] [address] [place] [address] [place] [address] Encounter Details Date Type Department Care Team Description 12/13/2019 - Emergency [facility] Jose Reynoso S, Asthma with acute exacerbation, unspecified asthma severity, unspecified whether persistent ( Primary Dx); 12/14/2019 Department Cough [address] [place] [address] [address] [place] [address] [id number] [place], [place] [id number] Allergies Active Allergy Reactions Severity Noted Date Comments Doxycycline Nausea and/or Vomiting 12/07/2019 Sulfamethoprim Ds Hives 12/07/2019 Azithromycin Other - See comments 11/19/2017 Tachycardia and numbness of lower extremities documented as of this encounter (statuses as of 12/14/2019) Medications Medication Sig Dispensed Refills Start Date [...] of asthma severity, Breath. unspecified whether persistent fluticasone Inhale 1 Puff [...] (three) times Facial abscess, daily. Facial cellulitis predniSONE 50 mg Take 1 tablet by 5 tablet 0 12/14/2019 Active tabletIndications: mouth daily. Asthma with acute exacerbation, unspecified asthma severity, unspecified whether persistent benzonatate 200 mg Take 1 capsule by 21 capsule 0 12/14/2019 Active capsuleIndications: mouth 3 (three) Asthma with acute times daily as exacerbation, needed for Cough. unspecified asthma severity, unspecified whether persistent albuterol 2.5 mg /3 Inhale 3 mL every 20 mL 0 12/14/2019 Active mL (0.083 %) 4 (four) hours. nebulizer May also nebulize solutionIndications: one extra every 6 Asthma with acute hours. exacerbation, unspecified asthma severity, unspecified whether persistent albuterol 90 Inhale 2 Puffs 8.5 g 0 12/14/2019 Active mcg/actuation every 4 (four) inhalerIndications: hours as needed Asthma with acute for Wheezing or exacerbation, Shortness of unspecified asthma Breath. severity, unspecified whether persistent documented as of this encounter (statuses as of 12/14/2019) Active Problems Problem Noted Date Asthma attack 02/08/2018 Moderate asthma with exacerbation 11/19/2017 Obesity (BMI 30-39.9) 11/19/2017 Asthma exacerbation 11/19/2017 Sinus tachycardia 11/19/2017 documented as of this encounter (statuses as of 12/14/2019) Immunizations Name Administration Dates Next Due DTAP [...] Sign Reading Time Taken Comments Blood Pressure 105/67 12/14/2019 12:00 AM PLACEMENT OFFICER Pulse 92 12/14/2019 12:00 AM PLACEMENT OFFICER Temperature 37.1 C (98.8 F) 12/13/2019 10:21 PM PLACEMENT OFFICER Respiratory Rate 20 12/14/2019 12:44 AM PLACEMENT OFFICER Oxygen Saturation 95% 12/14/2019 12:44 AM PLACEMENT OFFICER Inhaled Oxygen Concentration - - Weight 79.4 kg (175 lb) 12/13/2019 10:21 PM PLACEMENT OFFICER Height 149.9 cm (4' 11") 12/13/2019 10:21 PM PLACEMENT OFFICER Body Mass Index 35.35 12/13/2019 10:21 PM PLACEMENT OFFICER documented in this encounter Discharge Instructions Jose Hammonds MD - 12/14/2019 DIAGNOSIS Diagnoses that have been ruled out: None Diagnoses that are still under consideration: None Final diagnoses: Asthma with acute exacerbation, unspecified asthma severity, unspecified whether persistent NO LIFE-THREATENING FINDINGS ON TODAY'S EXAM. PROCEDURES IN THE ER TODAY: Orders Placed This Encounter Procedures XR CHEST 1 VW POCT TEST MEDICATIONS ADMINISTERED IN THE ER TODAY AND DISCHARGE MEDICATIONS: Orders Placed This Encounter Medications ipratropium-albuterol (DUONEB) 0.5 mg-3 mg(2.5 mg base)/3 mL nebulizer solution 6 mL methylprednisolone sod succ (SOLU-MEDROL) injection 125 mg ondansetron (ZOFRAN (PF)) injection 4 mg magnesium sulfate 4 mEq/mL (50 %) injection 16 mEq ketorolac (TORADOL) injection 30 mg codeine-guaifenesin (ROBITUSSIN AC) 10-100 mg/5 mL solution 10 mL ipratropium-albuterol (DUONEB) 0.5 mg-3 mg(2.5 mg base)/3 mL nebulizer solution 3 mL ondansetron (ZOFRAN (PF)) injection 4 mg predniSONE 50 mg tablet benzonatate 200 mg capsule albuterol 2.5 mg /3 mL (0.083 %) nebulizer solution albuterol 90 mcg/actuation inhaler FOLLOW-UP RECOMMENDATIONS: RECOMMEND FOLLOW-UP WITH A PRIMARY CARE PROVIDER OR SPECIALIST IN 2-5 DAYS, ESPECIALLY IF NO IMPROVEMENT IN SYMPTOMS. MAY FOLLOW-UP WITH A PROVIDER OF YOUR CHOICE, SUCH : 1. A PHYSICIAN OF YOUR CHOICE 2. [facility], . LOCATIONS IN [facility] 3. [facility], [address] [place] [address]; OR, IF YOU WISH TO FOLLOW-UP WITHIN THE [facility], MAY TRY THESE OPTIONS (CLINIC APPOINTMENTS AVAILABLE ON [id number] BASIS): 1. SCHEDULE AN APPOINTMENT ONLINE AT [email or web address] 2. OR CALL THE [facility] AT OR 3. OR CALL YOUR [facility] PHYSICIAN'S OFFICE DIRECTLY IF YOU ARE ALREADY AN ESTABLISHED [facility] PATIENT. RETURN TO ER FOR WORSENING OF SYMPTOMS documented in this encounter Plan of Treatment [...] Procedure Name Priority Date/Time Associated Diagnosis Comments XR CHEST 1 VW STAT 12/14/2019 12:44 AM Cough Results for this PLACEMENT OFFICER procedure are in the results section. POCT TEST AMALIA 12/14/2019 12:40 AM Cough Results for this PLACEMENT OFFICER procedure are in the results section. CONSENT/REFUSAL FOR Routine 12/13/2019 10:05 PM DIAGNOSIS AND PLACEMENT OFFICER TREATMENT documented in this encounter Results XR CHEST 1 VW (12/14/2019 12:44 AM PLACEMENT OFFICER) Specimen Impressions Performed At Impression: PACS/VR/DOSE No radiographic evidence of acute cardiopulmonary disease. RL: [id number] AFC: [id number] Narrative Performed At Examination: Chest one view (portable frontal) PACS/VR/DOSE Ordering Physician: JOSE REYNOSO History: cough Comparison: None available Findings: Single portable view of the chest is submitted for review. Pulmonary vascularity appears normal. The lungs are clear. There is no significant pleural effusion evident. There is no significant pneumothorax evident. Heart size is normal. Nipple piercings bilaterally. Procedure Note [facility], Radiant Results Inft User - 12/14/2019 12:49 AM PLACEMENT OFFICER Examination: Chest one view (portable frontal) Ordering Physician: JOSE REYNOSO History: cough Comparison: None available Findings: Single portable view of the chest is submitted for review. Pulmonary vascularity appears normal. The lungs are clear. There is no significant pleural effusion evident. There is no significant pneumothorax evident. Heart size is normal. Nipple piercings bilaterally. IMPRESSION Impression: No radiographic evidence of acute cardiopulmonary disease. RL: [id number] AFC: [id number] Performing Organization Address City/State/Zipcode Phone Number PACS/VR/DOSE POCT TEST (12/14/2019 12:40 AM PLACEMENT OFFICER) POCT PREG Negative On board controls acceptable Present with C Line POCT PREG LOT # [id number] POCT PREG TEST DATE 05/27/2021 Specimen Urine - URINE, CLEAN CATCH documented in this encounter Visit Diagnoses Diagnosis Asthma with acute exacerbation, unspecified asthma severity, unspecified whether persistent - Primary Cough documented in this encounter Administered Medications Medication Order MAR Action Action Date Dose Rate Site ipratropium-albuterol (DUONEB) 0.5 Given 12/13/2019 10:26 PM PLACEMENT OFFICER 6 mL mg-3 mg(2.5 mg base)/3 mL nebulizer solution 6 mL 6 mL, Inhalation, QID, First dose on 12/14/19 at 0800, Until Discontinued, Routine Medication Order MAR Action Action Date Dose Rate Site codeine-guaifenesin (ROBITUSSIN Given 12/14/2019 12:36 AM PLACEMENT OFFICER 10 mL AC) 10-100 mg/5 mL solution 10 mL 10 mL, Oral, ONCE, 1 dose, 12/14/19 at 0130, AMALIA ipratropium-albuterol (DUONEB) 0.5 mg-3 mg(2.5 Given 12/14/2019 12:33 AM PLACEMENT OFFICER 3 mL mg base)/3 mL nebulizer solution 3 mL 3 mL, Inhalation, ONCE, 1 dose, 12/14/19 at 0130, Routine ketorolac (TORADOL) injection 30 mg Given 12/14/2019 12:36 AM PLACEMENT OFFICER 30 mg 30 mg, Slow IV Push, ONCE, 1 dose, Sat12/14/19 at 0130, AMALIA, [employer] team member approving Restricted medication: JOSE REYNOSO magnesium sulfate 4 mEq/mL (50 %) injection Given 12/13/2019 10:50 PM PLACEMENT OFFICER 16 mEq 16 mEq 16 mEq (2 g), IV Piggyback, ONCE, 1 dose, 12/14/19 at 0000, STAT methylprednisolone sod succ (SOLU-MEDROL) Given 12/13/2019 10:26 PM PLACEMENT OFFICER 125 mg injection 125 mg 125 mg, IV Piggyback, ONCE, 1 dose, 12/13/19 at 2330, STAT ondansetron (ZOFRAN (PF)) injection 4 mg Given 12/13/2019 10:26 PM PLACEMENT OFFICER 4 mg 4 mg, Slow IV Push, ONCE, 1 dose, 12/13/19 at 2330, AMALIA ondansetron (ZOFRAN (PF)) injection 4 mg Given 12/14/2019 12:37 AM PLACEMENT OFFICER 4 mg 4 mg, Slow IV Push, ONCE, 1 dose, 12/14/19 at 0145, AMALIA documented in this encounter ([place]) [place] [address] documented as of this encounter
[2019-12-16] MEDS ORDERED: predniSONE 20 MG TAB ONE (03:03)
[2019-12-16] MEDS ORDERED: IPRATROPIUM BROM 0.5MG/2.5ML ONE (03:03)
[2019-12-16] MEDS ORDERED: NA CHLORIDE 0.9% 1,000 ML ONE (03:03)
[2019-12-16] MEDS ORDERED: CEFTRIAXONE/SWI 1gm 1 GM/10 ML SYR ONE (03:03)
[2019-12-16] MEDS ORDERED: ALBUTEROL 2.5 MG/3 ML NEB SOL ONE ×2 (03:03→05:29)
[2019-12-16] MEDS ORDERED: METHYLPREDNISOLONE 125 MG INJ ONE (03:03)
[2019-12-16 03:06] LABS: Absolute Lymphocytes (CBC) 2.5 K/uL (0.7-4.9); Basophils % 1.3 % (0-1.3); Lymphocytes % 23.5 % (15.3-44.8); MPV 9.3 fL (7.6-11.3); RBC Red Blood Cell Count 4.29 M/uL (3.86-4.86)
[2019-12-16] MEDS ORDERED: ONDANSETRON 4 MG/2 ML VIAL ONE (03:25)
[2019-12-16 03:28] LABS: Albumin 3.6 g/dL (3.4-5.0); Bilirubin Total 0.2 mg/dL (0.2-1.0); Potassium 3.5 mmol/L (3.5-5.1); Protein, Total 6.6 g/dL (6.4-8.2)
[2019-12-16 03:54] LABS: Urine Blood NEGATIVE (NEG); Urine Glucose NEGATIVE (NEG); Urine Protein NEGATIVE (NEG)
--- NOTE | 2019-12-16 05:10 | ER ---
Nurse's Notes [facility] Name: Adelaide Trinidad Age: 19 yrs Sex: Female : 2000 Arrival Date: 12/16/2019 Time: 01:59 Bed 18 Private MD: Diagnosis: Asthma;Acute upper respiratory infection, unspecified;Dyspnea Presentation: 12/16 02:13 Presenting complaint: Patient states: Cough and congestion with shortness of breath and wh chest pain for 2 weeks now. Pt with Hx of Asthma. Transition of care: patient was not received from another setting of care. Onset of symptoms was December 16, 2019. Risk Assessment: Do you want to hurt yourself or someone else? Patient reports no desire to harm self or others. Initial Sepsis Screen: Does the patient meet any 2 criteria? HR > 90 bpm. Does the patient have a suspected source of infection?. Care prior to arrival: None. 02:13 Method Of Arrival: Ambulatory 02:13 Acuity: LUIZ 3 Triage Assessment: 02:21 Respiratory: the patient reports symptoms have resolved. CHURCH SUPERVISOR: 02:20 LMP 10/2019 Historical: - Allergies: 02:16 Bactrim; 02:16 Doxycycline; 02:16 Zithromax; 02:16 Zosyn; - Home Meds: 02:16 Albuterol Inhl [Active]; - PMHx: 02:16 Anxiety; Asthma; Depression; HYPOGLYCEMIA; scoliosis; - PSHx: 02:16 Appendectomy; - Family history:: not pertinent. - Immunization history:: Adult Immunizations up to date. - Coronavirus screen:: The patient has NOT traveled to [place] in the past 14 days. - Social history:: Smoking status: Patient/guardian denies using. - Ebola Screening: : Patient negative for fever greater than or equal to 101.5 degrees Fahrenheit, and additional compatible Ebola Virus Disease symptoms Patient denies exposure to infectious person. Screenin:19 Abuse screen: Denies threats or abuse. Denies injuries from another. Nutritional screening: No deficits noted. Tuberculosis screening: No symptoms or risk factors identified. Fall Risk None identified. Assessment: 02:17 General: Appears in no apparent distress. Behavior is calm, cooperative, appropriate wh for age. Pain: Complains of pain in chest Pain does not radiate. Pain currently is 4 out of 10 on a pain scale. Quality of pain is described as aching, Pain began 2 weeks ago. Neuro: Level of Consciousness is awake, alert, obeys commands. Cardiovascular: Heart tones S1 S2 Rhythm is regular. Respiratory: Reports shortness of breath cough that is Airway is patent Respiratory effort is even, unlabored, Respiratory pattern is regular, symmetrical, Breath sounds are clear bilaterally. GI: Abdomen is flat, non-distended. : No signs and/or symptoms were reported regarding the genitourinary system. EENT: No signs and/or symptoms were reported regarding the EENT system. Derm: Skin is intact, is healthy with good turgor, Skin is pink, warm \T\ dry. normal. Musculoskeletal: Circulation, motion, and sensation intact. 03:22 Reassessment: Patient appears in no apparent distress at this time. No changes from previously documented assessment. Patient and/or family updated on plan of care and expected duration. Pain level reassessed. Patient is alert, oriented x 3, equal unlabored respirations, skin warm/dry/pink. 04:59 Reassessment: Patient appears in no apparent distress at this time. No changes from previously documented assessment. Patient and/or family updated on plan of care and expected duration. Pain level reassessed. Patient is alert, oriented x 3, equal unlabored respirations, skin warm/dry/pink. Patient states feeling better. Vital Signs: 02:20 BP 113 / 94; Pulse 94; Resp 18; Temp 98; Pulse Ox 100% ; Weight 81.65 kg; Height 4 ft. 11 in. (149.86 cm); Pain 4/10; 03:21 BP 128 / 105; Pulse 116; Resp 18; Pulse Ox 100% ; wh 04:59 BP 93 / 80; Pulse 116; Resp 18; Pulse Ox 98% on R/A; 02:20 Body Mass Index 36.36 (81.65 kg, 149.86 cm) ED Course: 01:59 Patient arrived in ED. ag3 02:05 Reyna Whitehead is Primary Nurse. wh 02:07 Juan A Louie MD is Attending Physician. antionette 02:14 Triage completed. 02:19 Arm band placed on right wrist. 02:20 Patient has correct armband on for positive identification. Bed in low position. Call light in reach. Side rails up X 1. Pulse ox on. NIBP on. 02:37 Chest Pa And Lat (2 Views) XRAY In Process Unspecified. EDMS 02:40 Inserted saline lock: 22 gauge in right antecubital area, using aseptic technique. Blood collected. 04:32 CT Chest For PE Angio In Process Unspecified. EDMS 05:09 Jeremie Armas MD is Referral Physician. [facility] 05:32 No provider procedures requiring assistance completed. IV discontinued, intact, bleeding controlled, No redness/swelling at site. Administered Medications: 03:10 Drug: NS 0.9% 1000 ml Route: IV; Rate: 1 bolus; Site: right antecubital; 05:29 Follow up: Response: No adverse reaction; IV Status: Completed infusion 03:12 Drug: SOLU-Medrol 125 mg Route: IVP; Site: right antecubital; 05:29 Follow up: Response: No adverse reaction 03:14 Drug: Rocephin 1 grams Route: IV; Rate: per protocol; Site: right antecubital; 05:30 Follow up: Response: No adverse reaction; IV Status: Completed infusion 03:15 Drug: Albuterol - atroVENT (3:1) (2.5 mg - 0.5 mg) 3 ml Route: Nebulizer; 05:29 Follow up: Response: No adverse reaction; Wheezing diminished 03:15 Drug: predniSONE 60 mg Route: PO; 05:29 Follow up: Response: No adverse reaction 03:23 Drug: Zofran 4 mg Route: IVP; Site: right antecubital; 05:30 Follow up: Response: No adverse reaction; Nausea is decreased 05:29 Not Given (Patient Refused): Albuterol 2.5 mg Inhalation once Outcome: 05:09 Discharge ordered by [facility] 05:33 Discharged to home ambulatory, with family. 05:33 Condition: stable 05:33 Discharge instructions given to patient, Instructed on discharge instructions, follow up and referral plans. medication usage, POC Demonstrated understanding of instructions, follow-up care, medications, POC Prescriptions given X 4. 05:33 Patient left the ED. Signatures: Dispatcher [employer] EDSD Juan A Louie MD MD cha [place], Winsy Johana Ma ag3
--- NOTE | 2019-12-16 05:11 | EDPHYS ---
Physician Documentation [facility] [place] Name: Adelaide Trinidad Age: 19 yrs Sex: Female : 2000 Arrival Date: 12/16/2019 Time: 01:59 Bed 18 Private MD: MYLES Physician Juan A Louie HPI: 12/16 02:15 This 19 yrs old Female presents to ER via Ambulatory with complaints of antionette Breathing Difficulty. 02:15 The patient has shortness of breath at rest, with light activity. Onset: The antionette symptoms/episode began/occurred 7 day(s) ago. Duration: The symptoms are continuous, and are steadily getting worse. The patient's shortness of breath has no apparent modifying factors. Associated signs and symptoms: Pertinent positives: non-productive cough. Severity of symptoms: At their worst the symptoms were. The patient has not experienced similar symptoms in the past. 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 - Immunization history:: Adult Immunizations up to date. - Coronavirus screen:: The patient has NOT traveled to [place] in the past 14 days. - Social history:: Smoking status: Patient/guardian denies using. - Ebola Screening: : Patient negative for fever greater than or equal to 101.5 degrees Fahrenheit, and additional compatible Ebola Virus Disease symptoms Patient denies exposure to infectious person. ROS: 02:15 Constitutional: Negative for fever, chills, and weight loss, Eyes: Negative for injury, antionette pain, redness, and discharge, ENT: Negative for injury, pain, and discharge, Neck: Negative for injury, pain, and swelling, Cardiovascular: Negative for chest pain, palpitations, and edema, Abdomen/GI: Negative for abdominal pain, nausea, vomiting, diarrhea, and constipation, Back: Negative for injury and pain, : Negative for injury, bleeding, discharge, and swelling, MS/Extremity: Negative for injury and deformity, Skin: Negative for injury, rash, and discoloration, Neuro: Negative for headache, weakness, numbness, tingling, and seizure, Psych: Negative for depression, anxiety, suicide ideation, homicidal ideation, and hallucinations, Allergy/Immunology: Negative for hives, rash, and allergies, Endocrine: Negative for neck swelling, polydipsia, polyuria, polyphagia, and marked weight changes, Hematologic/Lymphatic: Negative for swollen nodes, abnormal bleeding, and unusual bruising. 02:15 Respiratory: Positive for cough, shortness of breath, wheezing, inspiratory, expiratory. Exam: 02:15 Constitutional: This is a well developed, well nourished patient who is awake, alert, antionette and in no acute distress. Head/Face: Normocephalic, atraumatic. Eyes: Pupils equal round and reactive to light, extra-ocular motions intact. Lids and lashes normal. Conjunctiva and sclera are non-icteric and not injected. Cornea within normal limits. Periorbital areas with no swelling, redness, or edema. ENT: Nares patent. No nasal discharge, no septal abnormalities noted. Tympanic membranes are normal and external auditory canals are clear. Oropharynx with no redness, swelling, or masses, exudates, or evidence of obstruction, uvula midline. Mucous membranes moist. Neck: Trachea midline, no thyromegaly or masses palpated, and no cervical lymphadenopathy. Supple, full range of motion without nuchal rigidity, or vertebral point tenderness. No Meningismus. Chest/axilla: Normal chest wall appearance and motion. Nontender with no deformity. No lesions are appreciated. Cardiovascular: Regular rate and rhythm with a normal S1 and S2. No gallops, murmurs, or rubs. Normal PMI, no JVD. No pulse deficits. Abdomen/GI: Soft, non-tender, with normal bowel sounds. No distension or tympany. No guarding or rebound. No evidence of tenderness throughout. Back: No spinal tenderness. No costovertebral tenderness. Full range of motion. Female : Normal external genitalia. Skin: Warm, dry with normal turgor. Normal color with no rashes, no lesions, and no evidence of cellulitis. MS/ Extremity: Pulses equal, no cyanosis. Neurovascular intact. Full, normal range of motion. Neuro: Awake and alert, GCS 15, oriented to person, place, time, and situation. Cranial nerves II-XII grossly intact. Motor strength 5/5 in all extremities. Sensory grossly intact. Cerebellar exam normal. Normal gait. Psych: Awake, alert, with orientation to person, place and time. Behavior, mood, and affect are within normal limits. 02:15 Respiratory: mild respiratory distress is noted, Respirations: labored breathing, that is moderate, tachypnea, Breath sounds: bronchial sounds, decreased breath sounds, rhonchi, that are mild, that are moderate, wheezing: inspiratory expiratory 03:24 Musculoskeletal/extremity: Circulation is intact in all extremities. Sensation intact. [facility] Compartment Syndrome exam of affected extremity: is normal. DVT Exam: No signs of deep vein thrombosis. no pain, no swelling, no tenderness, negative Homans' sign noted on exam, no appreciated bluish discoloration, no erythema, no increased warmth. Vital Signs: 02:20 BP 113 / 94; Pulse 94; Resp 18; Temp 98; Pulse Ox 100% ; Weight 81.65 kg; Height 4 ft. wh 11 in. (149.86 cm); Pain 4/10; 03:21 BP 128 / 105; Pulse 116; Resp 18; Pulse Ox 100% ; wh 04:59 BP 93 / 80; Pulse 116; Resp 18; Pulse Ox 98% on R/A; wh 02:20 Body Mass Index 36.36 (81.65 kg, 149.86 cm) MDM: 02:07 Patient medically screened. [facility] 02:17 Data reviewed: vital signs, nurses notes, lab test result(s), radiologic studies, plain antionette films. 12/16 02:15 Order name: CBC with Diff; Complete Time: 04:25 [facility] 12/16 02:15 Order name: Comprehensive Metabolic Panel; Complete Time: 04:25 [facility] 12/16 02:15 Order name: Urine Culture [facility] 12/16 02:15 Order name: D-Dimer; Complete Time: 04:25 [facility] 12/16 02:48 Order name: Urine Dipstick--Ancillary (enter results); Complete Time: 04:25 cm6 12/16 02:48 Order name: Urine --Ancillary (enter results); Complete Time: 04:25 cm6 12/16 02:15 Order name: Chest Pa And Lat (2 Views) XRAY [facility] 12/16 03:24 Order name: CT Chest For PE Angio [facility] 12/16 02:15 Order name: Urine Dipstick-Ancillary (obtain specimen); Complete Time: 03:14 [facility] 12/16 02:15 Order name: Urine Test (obtain specimen); Complete Time: 03:14 [facility] Administered Medications: 03:10 Drug: NS 0.9% 1000 ml Route: IV; Rate: 1 bolus; Site: right antecubital; 05:29 Follow up: Response: No adverse reaction; IV Status: Completed infusion 03:12 Drug: SOLU-Medrol 125 mg Route: IVP; Site: right antecubital; 05:29 Follow up: Response: No adverse reaction 03:14 Drug: Rocephin 1 grams Route: IV; Rate: per protocol; Site: right antecubital; 05:30 Follow up: Response: No adverse reaction; IV Status: Completed infusion 03:15 Drug: Albuterol - atroVENT (3:1) (2.5 mg - 0.5 mg) 3 ml Route: Nebulizer; 05:29 Follow up: Response: No adverse reaction; Wheezing diminished 03:15 Drug: predniSONE 60 mg Route: PO; 05:29 Follow up: Response: No adverse reaction 03:23 Drug: Zofran 4 mg Route: IVP; Site: right antecubital; 05:30 Follow up: Response: No adverse reaction; Nausea is decreased 05:29 Not Given (Patient Refused): Albuterol 2.5 mg Inhalation once Disposition: 12/16/19 05:09 Discharged to Home. Impression: Asthma, Acute upper respiratory infection, unspecified, Dyspnea. - Condition is Stable. - Discharge Instructions: Asthma, Adult, Shortness of Breath, Upper Respiratory Infection, Adult, Cool Mist Vaporizer, Shortness of Breath, [id number], Asthma, Adult, Jgki-la-Nnag, Cough, Adult. - Prescriptions for Keflex 500 mg Oral Capsule - take 1 capsule by ORAL route every 6 hours for 7 days; 28 capsule. Albuterol Sulfate 2.5 mg /3 mL (0.083 %) Inhalation Solution for Nebulization - inhale 1 unit by NEBULIZATION route every 8 hours As needed; 1 box. Prednisone 20 mg Oral Tablet - take 2 tablet by ORAL route once daily for 5 days; 10 tablet. Albuterol Sulfate 90 mcg/actuation - inhale 1-2 puff by INHALATION route every 4-6 hours; 1 Inhaler. - Medication Reconciliation Form, Thank You Letter, Antibiotic Education, Prescription Opioid Use form. - Follow up: Private Physician; When: 2 - 3 days; Reason: Recheck today's complaints, Continuance of care, Re-evaluation by your physician. Follow up: Jeremie Armas; When: 2 - 3 days; Reason: Recheck today's complaints, Re-evaluation by your physician. - Problem is new. - Symptoms have improved. Signatures: Dispatcher [employer] EDIL Juan A Louie MD MD cha [place], Winsy wh Corrections: (The following items were deleted from the chart) 05:33 05:09 12/16/2019 05:09 Discharged to Home. Impression: Asthma; Acute upper respiratory wh infection, unspecified; Dyspnea. Condition is Stable. Discharge Instructions: Asthma, Adult, Shortness of Breath, Upper Respiratory Infection, Adult, Cool Mist Vaporizer, Shortness of Breath, [id number], Asthma, Adult, Remq-gh-Lpks, Cough, Adult. Prescriptions for Keflex 500 mg Oral Capsule - take 1 capsule by ORAL route every 6 hours for 7 days; 28 capsule, Albuterol Sulfate 2.5 mg /3 mL (0.083 %) Inhalation Solution for Nebulization - inhale 1 unit by NEBULIZATION route every 8 hours As needed; 1 box, Prednisone 20 mg Oral Tablet - take 2 tablet by ORAL route once daily for 5 days; 10 tablet, Albuterol Sulfate 90 mcg/actuation - inhale 1-2 puff by INHALATION route every 4-6 hours; 1 Inhaler. and Forms are Medication Reconciliation Form, Thank You Letter, Antibiotic Education, Prescription Opioid Use. Follow up: Private Physician; When: 2 - 3 days; Reason: Recheck today's complaints, Continuance of care, Re-evaluation by your physician. Follow up: Jeremie Armas; When: 2 - 3 days; Reason: Recheck today's complaints, Re-evaluation by your physician. Problem is new. Symptoms have improved. antionette
[2019-12-16 06:11] VITALS: TEMP 98; O2SAT 100
[2019-12-16 06:25] VITALS: BP 128/105
--- NOTE | 2019-12-16 09:00 | RAD REPORT ---
EXAM DESCRIPTION: RAD - Chest Pa And Lat (2 Views) - 12/16/2019 2:37 am CLINICAL HISTORY: COUGH Chest pain. COMPARISON: Chest Pa And Lat (2 Views) dated 11/24/2019; Chest Single View dated 07/04/2019; Chest Pa A nd Lat (2 Views) dated 05/05/2019; Chest Pa And Lat (2 Views) dated 12/04/2018 FINDINGS: The lungs are clear. The heart is normal in size. No displaced fractures. Mild thoracic sc oliosis. IMPRESSION: No acute or concerning finding suspected.
--- NOTE | 2019-12-16 10:36 | RAD REPORT ---
EXAM DESCRIPTION: Chest For Pe Angio CLINICAL HISTORY: Chest pain;Dyspnea COMPARISON: 07/05/2019 TECHNIQUE: CTA of the chest obtained following the uncomplicated intravenous administration of iodin ated contrast. 3-D/MIP reformatted images of the chest available for evaluation. FINDINGS: Chest: Pulmonary arteries: Contrast bolus is adequate.No filling defects identified in the pulmonary arterie s to suggest pulmonary embolus. Thyroid: No abnormalities of the visualized thyroid. Great Vessels: Great vessels have normal anatomic configuration. Thoracic Aorta: No abnormalities of the thoracic aorta identified. Heart: No cardiomegaly, significant pericardial effusion, or coronary artery atherosclerosis Lymph Nodes: No enlarged mediastinal lymph nodes identified. Esophagus: No abnormalities of the esophagus identified. Other: No additional findings. Lungs: No airspace opacities identified. Pleura: No pleural effusion or pneumothorax. Trachea/Airways: No abnormalities of the visualized trachea or airways. Bones: No destructive osseous lesions. Upper Abdomen: Limited images of the upper abdomen demonstrate no definite abnormalities of visualize d portions of the liver, gallbladder, pancreas, spleen, adrenal glands, or kidneys. IMPRESSION: 1. No pulmonary embolus identified. This exam was performed according to our departmental dose-optimization program, which includes autom ated exposure control, adjustment of the mA and/or kV according to patient size and/or use of iterati ve reconstruction technique. Electronically signed by: Adam Dow 12/16/2019 4:57 AM OVEREDGER Due to temporary technical issues with the PACS/Fluency reporting system, reports are being signed by the in house radiologist as a courtesy to ensure prompt reporting. The interpreting radiologist is f ully responsible for the content of the report.
== END 2019-12-16 05:33 | disposition home or self-care (01) ==
LOC: ER 01:57
DX: J45.909 Unspecified asthma, uncomplicated (principal); J06.9 Acute upper respiratory infection, unspecified; Z88.1 Allergy status to other antibiotic agents; Z88.8 Allergy status to other drugs, medicaments and biological substances
CPT/HCPCS: 96365; 87088; 85025; 87086; 36415; 81025; 85379; 81003; 80053; 71275; 71046; 94640; 96375; 99284; 96366; Q9967; J7512; J0696; J7030; J2930; J2405

== ENCOUNTER 2020-01-07 19:24 | Emergency (ER) | payer OTHER ==
[2020-01-07] MEDS ORDERED: METHYLPREDNISOLONE 125 MG INJ ONE (20:22)
[2020-01-07] MEDS ORDERED: predniSONE 20 MG TAB ONE (20:22)
[2020-01-07] MEDS ORDERED: ALBUTEROL 2.5 MG/3 ML NEB SOL ONE (20:22)
[2020-01-07] MEDS ORDERED: NA CHLORIDE 0.9% 1,000 ML ONE (20:22)
[2020-01-07] MEDS ORDERED: Levofloxacin 750mg IV 750 MG/150 ML BAG IV ONE (20:22)
[2020-01-07] MEDS ORDERED: IPRATROPIUM BROM 0.5MG/2.5ML ONE (20:22)
[2020-01-07] MEDS ORDERED: ONDANSETRON 4 MG/2 ML VIAL ONE (21:02)
[2020-01-07 21:11] LABS: Basophils % 0.6 % (0-1.3); Hematocrit 35.4 % (36.0-45.0); Lymphocytes % 20.4 % (15.3-44.8); MPV 9.4 fL (7.6-11.3); RBC Red Blood Cell Count 3.95 M/uL (3.86-4.86)
[2020-01-07 21:15] LABS: Albumin 3.6 g/dL (3.4-5.0); Bilirubin Total 0.2 mg/dL (0.2-1.0); Potassium 3.6 mmol/L (3.5-5.1); Protein, Total 6.6 g/dL (6.4-8.2)
[2020-01-07] MEDS ORDERED: LEVALBUTEROL 1.25 MG/3 ML NEB ONE ×2 (21:32→21:55)
--- NOTE | 2020-01-07 22:07 | ER ---
Nurse's Notes [facility] Name: Adelaide Trinidad Age: 19 yrs Sex: Female : 2000 Arrival Date: 01/07/2020 Time: 19: Bed 13 Private MD: Diagnosis: Dyspnea;Asthma Presentation: 01/06 19:40 Chief complaint: Patient states: Cough, shortness of breath, fever and sore throat for aj1 the past 2 days. Today she started running fever. Patient is tachypneic with labored respirations in triage. Patient states that she has a history of asthma, did 2 breathing treatments with albuterol and atrovent with no relief. Coronavirus screen: The patient has NOT traveled to a country currently being monitored by the CDC within the last 14 days. Ebola Screen: Patient denies travel to an Ebola-affected area in the 21 days before illness onset. Initial Sepsis Screen: Does the patient meet any 2 criteria? HR > 90 bpm. No. Patient's initial sepsis screen is negative. Does the patient have a suspected source of infection? Yes: Productive cough/pneumonia. Risk Assessment: Do you want to hurt yourself or someone else? Patient reports no desire to harm self or others. 19:40 Method Of Arrival: Ambulatory aj1 19:40 Acuity: LUIZ 2 aj1 Triage Assessment: 19:43 General: Appears comfortable, Behavior is calm, cooperative, appropriate for age. Pain: aj1 Complains of pain in chest. Neuro: Level of Consciousness is awake, alert, obeys commands. Cardiovascular: Patient's skin is warm and dry. Respiratory: Reports shortness of breath at rest Airway is patent Respiratory effort is even, labored, Respiratory pattern is regular, symmetrical, tachypnea Onset: The symptoms/episode began/occurred today, the patient has moderate shortness of breath. Historical: - Allergies: 19:42 Bactrim; aj1 19:42 Doxycycline; aj1 19:42 Zithromax; aj1 19:42 Zosyn; aj1 - Home Meds: 19:42 Albuterol Inhl [Active]; aj1 - PMHx: 19:42 Anxiety; Asthma; Depression; HYPOGLYCEMIA; scoliosis; aj1 - Immunization history:: Flu vaccine is not up to date. - Social history:: Smoking status: Patient denies any tobacco usage or history of. Screenin:55 Abuse screen: Denies threats or abuse. Denies injuries from another. Nutritional aa1 screening: No deficits noted. Tuberculosis screening: No symptoms or risk factors identified. Fall Risk None identified. Assessment: 19:55 General: Appears in no apparent distress. comfortable, Behavior is calm, cooperative, aa1 appropriate for age. Pain: Complains of pain in chest Is episodic, chronic. Neuro: Level of Consciousness is awake, alert, obeys commands, Oriented to person, place, time, situation, Moves all extremities. Speech is normal. Cardiovascular: Heart tones S1 S2 present Rhythm is sinus tachycardia. Respiratory: Reports shortness of breath cough that is Airway is patent Respiratory effort is even, unlabored, Respiratory pattern is regular, symmetrical, Breath sounds are diminished bilaterally. Onset: The symptoms/episode began/occurred at an unknown time. the patient has moderate shortness of breath. GI: Reports nausea. : No signs and/or symptoms were reported regarding the genitourinary system. EENT: No signs and/or symptoms were reported regarding the EENT system. Derm: Skin is intact, is healthy with good turgor, Skin is pink, warm \T\ dry. Musculoskeletal: Circulation, motion, and sensation intact. Capillary refill < 3 seconds. 21:00 Reassessment: Patient appears in no apparent distress at this time. Patient and/or aa1 family updated on plan of care and expected duration. Pain level reassessed. Patient is alert, oriented x 3, equal unlabored respirations, skin warm/dry/pink. Awaiting completion of lab and x-ray results. 22:31 Reassessment: Patient appears in no apparent distress at this time. Patient is alert, aa1 oriented x 3, equal unlabored respirations, skin warm/dry/pink. Discussed d/c \T\ f/u instructions with pt; denies questions or concerns at this time. Ambulatory to lobby with steady gait. Patient states feeling better. Patient states symptoms have improved. Vital Signs: 19:40 BP 130 / 90; Pulse 112; Resp 36; Temp 98.2; Pulse Ox 99% ; Weight 86.18 kg (R); Height aj1 4 ft. 11 in. (149.86 cm) (R); Pain 8/10; 21:02 BP 125 / 69; Pulse 96; Resp 20; Pulse Ox 97% ; aa1 22:00 BP 130 / 57; Pulse 96; Resp 20; Pulse Ox 99% on R/A; aa1 22:31 BP 127 / 59; Pulse 107; Resp 18; Temp 98.4; Pulse Ox 97% on R/A; aa1 19:40 Body Mass Index 38.37 (86.18 kg, 149.86 cm) aj1 ED Course: 19:26 Patient arrived in ED. jg7 19:42 Triage completed. aj1 19:43 Arm band placed on. aj1 19:46 Juan A Louie MD is Attending Physician. antionette 19:55 Patient has correct armband on for positive identification. Placed in gown. Bed in low aa1 position. Call light in reach. Pulse ox on. NIBP on. Warm blanket given. 20:13 Kala Kessler, RN is Primary Nurse. aa1 20:35 Initial lab(s) drawn, by mo, sent to lab. First set of blood cultures drawn by me. aa1 Inserted saline lock: 22 gauge in right upper arm, using aseptic technique. Blood collected. 20:50 Second set of blood cultures drawn by me. aa1 21:15 Radiology exam delayed due to patient receiving breathing treatment at this time. 21:47 Chest Pa And Lat (2 Views) XRAY In Process Unspecified. EDMS 22:05 Jeremie Armas MD is Referral Physician. [facility] 22:31 No provider procedures requiring assistance completed. IV discontinued, intact, aa1 bleeding controlled, No redness/swelling at site. Pressure dressing applied. Administered Medications: 20:30 Drug: predniSONE 60 mg Route: PO; aa1 21:30 Follow up: Response: No adverse reaction aa1 20:35 Drug: SOLU-Medrol 125 mg Route: IVP; Site: right upper arm; aa1 21:35 Follow up: Response: No adverse reaction aa1 20:35 Drug: NS 0.9% 1000 ml Route: IV; Rate: 1 bolus; Site: right upper arm; aa1 21:15 Follow up: IV Status: Completed infusion; IV Intake: 1000ml aa1 20:50 Drug: Albuterol - atroVENT (3:1) (2.5 mg - 0.5 mg) 3 ml Route: Nebulizer; aa1 22:27 Follow up: Response: No adverse reaction; Marked relief of symptoms aa1 20:53 Drug: LevaQUIN 750 mg Volume: 150 ml; Route: IVPB; Infused Over: 90 mins; Site: right aa1 upper arm; 21:23 Follow up: IV Status: Completed infusion; IV Intake: 150ml aa1 20:55 CANCELLED (Duplicate Order): NS 0.9% 1000 ml IV at 1 bolus Per protocol; 1000 mL bolus aa1 21:02 Drug: Zofran (Ondansetron) 4 mg Route: IVP; Site: right upper arm; aa1 22:27 Follow up: Response: No adverse reaction; Nausea is decreased aa1 21:43 Drug: Xopenex 1.25 mg Route: Inhalation; aa1 21:52 Drug: Xopenex 1.25 mg Route: Inhalation; aa1 22:25 Drug: GI Cocktail without - (Maalox Suspension 30 ml, Lidocaine Liquid 2 % 15 aa1 ml) Route: PO; 22:28 Follow up: Response: No adverse reaction; Medication administered at discharge. aa1 Intake: 21:15 IV: 1000ml; Total: 1000ml. aa1 21:23 IV: 150ml; Total: 1150ml. aa1 Outcome: 22:05 Discharge ordered by . antionette 22:31 Discharged to home ambulatory, with friend. aa1 22:31 Condition: good 22:31 Discharge instructions given to patient, friend, Instructed on discharge instructions, follow up and referral plans. medication usage, Demonstrated understanding of instructions, follow-up care, medications, Prescriptions given X 4. 22:33 Patient left the ED. aa1 Signatures: Dispatcher [employer] EDNgozi Leslie RN RN aj1 Kala Kessler RN RN aa1 Juan A Louie MD MD cha Gutierrez, Jessica [id number] [facility] Corrections: (The following items were deleted from the chart) 19:43 19:40 Chief complaint: Patient states: Cough, shortness of breath, fever and sore aj1 throat for the past 2 days. Today she started running fever. Patient is tachypneic with labored respirations in triage aj1
--- NOTE | 2020-01-07 22:07 | EDPHYS ---
Physician Documentation [facility] Name: Adelaide Trinidad Age: 19 yrs Sex: Female : 2000 Arrival Date: 01/07/2020 Time: 19:26 Bed 13 Private MD: MYLES Physician Juan A Louie HPI: 01/06 20:13 This 19 yrs old Female presents to ER via Ambulatory with complaints of antionette Fever, Shortness Of Breath, Cough. 20:13 The patient reports fever, that was measured at 98 degrees Fahrenheit. Onset: The antionette symptoms/episode began/occurred 2 day(s) ago. Modifying factors: there are no obvious modifying factors. Associated signs and symptoms: Pertinent positives: chills, cough. Severity of symptoms: At their worst the symptoms were mild moderate in the emergency department the symptoms are unchanged. The patient has experienced similar episodes in the past, several times. Historical: - Allergies: 19:42 Bactrim; aj1 19:42 Doxycycline; aj1 19:42 Zithromax; aj1 19:42 Zosyn; aj1 - Home Meds: 19:42 Albuterol Inhl [Active]; aj1 - PMHx: 19:42 Anxiety; Asthma; Depression; HYPOGLYCEMIA; scoliosis; aj1 - Immunization history:: Flu vaccine is not up to date. - Social history:: Smoking status: Patient denies any tobacco usage or history of. ROS: 20:14 Constitutional: Negative for fever, chills, and weight loss, Eyes: Negative for injury, antionette pain, redness, and discharge, ENT: Negative for injury, pain, and discharge, Neck: Negative for injury, pain, and swelling, Cardiovascular: Negative for chest pain, palpitations, and edema, Abdomen/GI: Negative for abdominal pain, nausea, vomiting, diarrhea, and constipation, Back: Negative for injury and pain, : Negative for injury, bleeding, discharge, and swelling, MS/Extremity: Negative for injury and deformity, Skin: Negative for injury, rash, and discoloration, Neuro: Negative for headache, weakness, numbness, tingling, and seizure, Psych: Negative for depression, anxiety, suicide ideation, homicidal ideation, and hallucinations, Allergy/Immunology: Negative for hives, rash, and allergies, Endocrine: Negative for neck swelling, polydipsia, polyuria, polyphagia, and marked weight changes, Hematologic/Lymphatic: Negative for swollen nodes, abnormal bleeding, and unusual bruising. 20:14 Respiratory: Positive for cough, shortness of breath, on exertion. Exam: 20:14 Constitutional: This is a well developed, well nourished patient who is awake, alert, antionette and in no acute distress. Head/Face: Normocephalic, atraumatic. Eyes: Pupils equal round and reactive to light, extra-ocular motions intact. Lids and lashes normal. Conjunctiva and sclera are non-icteric and not injected. Cornea within normal limits. Periorbital areas with no swelling, redness, or edema. ENT: Nares patent. No nasal discharge, no septal abnormalities noted. Tympanic membranes are normal and external auditory canals are clear. Oropharynx with no redness, swelling, or masses, exudates, or evidence of obstruction, uvula midline. Mucous membranes moist. Neck: Trachea midline, no thyromegaly or masses palpated, and no cervical lymphadenopathy. Supple, full range of motion without nuchal rigidity, or vertebral point tenderness. No Meningismus. Chest/axilla: Normal chest wall appearance and motion. Nontender with no deformity. No lesions are appreciated. Abdomen/GI: Soft, non-tender, with normal bowel sounds. No distension or tympany. No guarding or rebound. No evidence of tenderness throughout. Back: No spinal tenderness. No costovertebral tenderness. Full range of motion. Female : Normal external genitalia. Skin: Warm, dry with normal turgor. Normal color with no rashes, no lesions, and no evidence of cellulitis. MS/ Extremity: Pulses equal, no cyanosis. Neurovascular intact. Full, normal range of motion. Neuro: Awake and alert, GCS 15, oriented to person, place, time, and situation. Cranial nerves II-XII grossly intact. Motor strength 5/5 in all extremities. Sensory grossly intact. Cerebellar exam normal. Normal gait. 20:14 Cardiovascular: Rate: tachycardic, Rhythm: regular, Pulses: Pulses are 4+ in bilateral radial, brachial, femoral, popliteal, posterior tibial and and dorsalis pedis arteries.. Heart sounds: normal, Edema: is not appreciated, JVD: is not appreciated. Vital Signs: 19:40 BP 130 / 90; Pulse 112; Resp 36; Temp 98.2; Pulse Ox 99% ; Weight 86.18 kg (R); Height aj1 4 ft. 11 in. (149.86 cm) (R); Pain 8/10; 21:02 BP 125 / 69; Pulse 96; Resp 20; Pulse Ox 97% ; aa1 22:00 BP 130 / 57; Pulse 96; Resp 20; Pulse Ox 99% on R/A; aa1 22:31 BP 127 / 59; Pulse 107; Resp 18; Temp 98.4; Pulse Ox 97% on R/A; aa1 19:40 Body Mass Index 38.37 (86.18 kg, 149.86 cm) aj1 MDM: 19:46 Patient medically screened. [facility] 20:15 Data reviewed: vital signs, nurses notes, lab test result(s), radiologic studies, plain antionette films. 01/06 20:13 Order name: CBC with Diff; Complete Time: 22:05 [facility] 01/06 20:13 Order name: Comprehensive Metabolic Panel; Complete Time: 22:05 [facility] 01/06 20:13 Order name: Chest Pa And Lat (2 Views) XRAY [facility] 01/06 20:13 Order name: Influenza Screen (a \T\ B); Complete Time: 22:05 [facility] 01/06 20:13 Order name: Blood Culture Adult (2) [facility] 01/06 20:53 Order name: IV Start; Complete Time: 20:53 aa1 Administered Medications: 20:30 Drug: predniSONE 60 mg Route: PO; aa1 21:30 Follow up: Response: No adverse reaction aa1 20:35 Drug: SOLU-Medrol 125 mg Route: IVP; Site: right upper arm; aa1 21:35 Follow up: Response: No adverse reaction aa1 20:35 Drug: NS 0.9% 1000 ml Route: IV; Rate: 1 bolus; Site: right upper arm; aa1 21:15 Follow up: IV Status: Completed infusion; IV Intake: 1000ml aa1 20:50 Drug: Albuterol - atroVENT (3:1) (2.5 mg - 0.5 mg) 3 ml Route: Nebulizer; aa1 22:27 Follow up: Response: No adverse reaction; Marked relief of symptoms aa1 20:53 Drug: LevaQUIN 750 mg Volume: 150 ml; Route: IVPB; Infused Over: 90 mins; Site: right aa1 upper arm; 21:23 Follow up: IV Status: Completed infusion; IV Intake: 150ml aa1 20:55 CANCELLED (Duplicate Order): NS 0.9% 1000 ml IV at 1 bolus Per protocol; 1000 mL bolus aa1 21:02 Drug: Zofran (Ondansetron) 4 mg Route: IVP; Site: right upper arm; aa1 22:27 Follow up: Response: No adverse reaction; Nausea is decreased aa1 21:43 Drug: Xopenex 1.25 mg Route: Inhalation; aa1 21:52 Drug: Xopenex 1.25 mg Route: Inhalation; aa1 22:25 Drug: GI Cocktail without - (Maalox Suspension 30 ml, Lidocaine Liquid 2 % 15 aa1 ml) Route: PO; 22:28 Follow up: Response: No adverse reaction; Medication administered at discharge. aa1 Disposition: 01/07/20 22:05 Discharged to Home. Impression: Dyspnea, Asthma. - Condition is Stable. - Discharge Instructions: Asthma, Adult, Shortness of Breath, Shortness of Breath, [id number], Asthma, Adult, [id number]-[id number]. - Prescriptions for Levaquin 750 mg Oral Tablet - take 1 tablet by ORAL route once daily for 7 days; 7 tablet. Albuterol Sulfate 2.5 mg /3 mL (0.083 %) Inhalation Solution for Nebulization - inhale 1 unit by NEBULIZATION route every 8 hours As needed; 1 box. Prednisone 20 mg Oral Tablet - take 2 tablet by ORAL route once daily for 5 days; 10 tablet. Albuterol Sulfate 90 mcg/actuation - inhale 1-2 puff by INHALATION route every 4-6 hours; 1 Inhaler. - Work release form, Medication Reconciliation Form, Thank You Letter, Antibiotic Education, Prescription Opioid Use form. - Follow up: Private Physician; When: 5 - 6 days; Reason: Recheck today's complaints, Continuance of care, Re-evaluation by your physician. Follow up: Jeremie Armas; When: 2 - 3 days; Reason: Recheck today's complaints, Continuance of care, Re-evaluation by your physician. - Problem is new. - Symptoms have improved. Signatures: Dispatcher [employer] EDNgozi Leslie RN RN aj1 Kala Kessler RN RN aa1 Juan A Louie MD MD cha Corrections: (The following items were deleted from the chart) 20:55 20:13 NS 0.9% 1000 ml IV at 1 bolus Per protocol; 1000 mL bolus ordered. [place] [id number] 22:33 22:05 01/07/2020 22:05 Discharged to Home. Impression: Dyspnea; Asthma. Condition is aa1 Stable. Discharge Instructions: Asthma, Adult, Shortness of Breath, Shortness of Breath, [id number], Asthma, Adult, [id number]. Prescriptions for Levaquin 750 mg Oral Tablet - take 1 tablet by ORAL route once daily for 7 days; 7 tablet, Albuterol Sulfate 2.5 mg /3 mL (0.083 %) Inhalation Solution for Nebulization - inhale 1 unit by NEBULIZATION route every 8 hours As needed; 1 box, Prednisone 20 mg Oral Tablet - take 2 tablet by ORAL route once daily for 5 days; 10 tablet, Albuterol Sulfate 90 mcg/actuation - inhale 1-2 puff by INHALATION route every 4-6 hours; 1 Inhaler. and Forms are Medication Reconciliation Form, Thank You Letter, Antibiotic Education, Prescription Opioid Use. Follow up: Private Physician; When: 5 - 6 days; Reason: Recheck today's complaints, Continuance of care, Re-evaluation by your physician. Follow up: Jeremie Armas; When: 2 - 3 days; Reason: Recheck today's complaints, Continuance of care, Re-evaluation by your physician. Problem is new. Symptoms have improved. [facility]
[2020-01-07] MEDS ORDERED: MAGNE/ALUM HYDROXD 30 ML UCUP ONE (22:22)
[2020-01-07] MEDS ORDERED: LIDOCAINE VISCOUS 2% SOLN 15 ML UDC ONE (22:22)
[2020-01-07 22:47] VITALS: O2SAT 97
[2020-01-07 22:49] VITALS: BP 127/59; TEMP 98.4
--- NOTE | 2020-01-08 08:19 | RAD REPORT ---
EXAM DESCRIPTION: RAD - Chest Pa And Lat (2 Views) - 01/07/2020 9:49 pm CLINICAL HISTORY: Cough;Dyspnea COMPARISON: December 16 Two view chest TECHNIQUE: Frontal and lateral views of the chest were obtained. FINDINGS: The lungs are clear. Heart size is normal and central vasculature is within normal limit s. No pleural effusion or pneumothorax seen. No acute bony finding noted. No aortic abnormality. No significant interval change. IMPRESSION: No acute cardiopulmonary process.
== END 2020-01-07 22:33 | disposition home or self-care (01) ==
LOC: ER 19:24
DX: J45.909 Unspecified asthma, uncomplicated (principal); Z88.1 Allergy status to other antibiotic agents; Z88.8 Allergy status to other drugs, medicaments and biological substances
CPT/HCPCS: 96365; 87040 ×2; 85025; 36415; 80053; 87804 ×2; 71046; 94640; 96375; 99285; J7512; J7030; J2930; J2405

== ENCOUNTER 2020-02-12 21:59 | Emergency (ER) | payer OTHER ==
[2020-02-12 22:39] LABS: Urine Blood 2+ (NEG); Urine Glucose NEGATIVE (NEG); Urine Protein 1+ (NEG); Urine pH 6.5 (5.0-7.0)
[2020-02-12 22:41] LABS: Absolute Lymphocytes (CBC) 1.2 K/uL (0.7-4.9); Basophils % 0.4 % (0-1.3); Hematocrit 35.8 % (36.0-45.0); MPV 9.3 fL (7.6-11.3)
[2020-02-12] MEDS ORDERED: NA CHLORIDE 0.9% 1,000 ML ONE (22:44)
[2020-02-12] MEDS ORDERED: DICYCLOMINE HCL 20 MG/2 ML AMP IM ONE (22:48)
[2020-02-12 22:57] LABS: Albumin 3.8 g/dL (3.4-5.0); Bilirubin Direct 0.1 mg/dL (0-0.2); Bilirubin Total 0.3 mg/dL (0.2-1.0); Potassium 3.9 mmol/L (3.5-5.1); Protein, Total 7.4 g/dL (6.4-8.2)
[2020-02-12] MEDS ORDERED: KETOROLAC 30 MG/ML INJ ONE (23:13)
--- NOTE | 2020-02-12 23:37 | EDPHYS ---
Physician Documentation [facility] Name: Adelaide Trinidad Age: 20 yrs Sex: Female : 2000 Arrival Date: 02/12/2020 Time: 22:02 Bed 7 Private MD: ED Physician Denys Singer HPI: 02/11 23:24 This 20 yrs old Female presents to ER via Ambulatory with complaints of tw4 Abdominal Pain, Nausea. 23:24 The patient presents to the emergency department with nausea, diarrhea. Onset: The tw4 symptoms/episode began/occurred yesterday. Possible causes: unknown. The symptoms are aggravated by nothing. The symptoms are alleviated by nothing. Associated signs and symptoms: Pertinent positives: diarrhea. Severity of symptoms: At their worst the symptoms were moderate in the emergency department the symptoms are unchanged. The patient has not experienced similar symptoms in the past. Historical: - Allergies: 22:27 Zithromax; fc 22:27 Bactrim; fc 22:27 Doxycycline; fc 22:27 Zosyn; fc - Home Meds: 22:27 albuterol sulfate 90 mcg/actuation inhalation HFAA 2 puffs q4hrs prn [Active]; fc Singulair 10 mg Oral tab 1 tab once daily [Active]; - PMHx: 22:27 Anxiety; Asthma; HYPOGLYCEMIA; Depression; scoliosis; fc - PSHx: 22:27 Appendectomy; fc - Immunization history:: Last tetanus immunization: up to date Flu vaccine is not up to date. - Social history:: Smoking status: Patient denies any tobacco usage or history of. Patient/guardian denies using alcohol, street drugs. ROS: 23:24 Constitutional: Negative for fever, chills, and weight loss, Eyes: Negative for injury, tw4 pain, redness, and discharge, Cardiovascular: Negative for chest pain, palpitations, and edema, Back: Negative for injury and pain, MS/Extremity: Negative for injury and deformity, Skin: Negative for injury, rash, and discoloration, Neuro: Negative for headache, weakness, numbness, tingling, and seizure. 23:24 Abdomen/GI: Positive for abdominal pain, nausea, diarrhea. Exam: 23:24 Constitutional: This is a well developed, well nourished patient who is awake, alert, tw4 and in no acute distress. Head/Face: Normocephalic, atraumatic. Chest/axilla: Normal chest wall appearance and motion. Nontender with no deformity. No lesions are appreciated. Cardiovascular: Regular rate and rhythm with a normal S1 and S2. No gallops, murmurs, or rubs. Normal PMI, no JVD. No pulse deficits. Respiratory: Lungs have equal breath sounds bilaterally, clear to auscultation and percussion. No rales, rhonchi or wheezes noted. No increased work of breathing, no retractions or nasal flaring. Back: No spinal tenderness. No costovertebral tenderness. Full range of motion. MS/ Extremity: Pulses equal, no cyanosis. Neurovascular intact. Full, normal range of motion. Neuro: Awake and alert, GCS 15, oriented to person, place, time, and situation. Cranial nerves II-XII grossly intact. Motor strength 5/5 in all extremities. Sensory grossly intact. Cerebellar exam normal. Normal gait. Vital Signs: 22:10 BP 136 / 84; Pulse 118; Resp 18; Temp 98.5(O); Pulse Ox 100% on R/A; Weight 86.18 kg fc (R); Height 4 ft. 11 in. (149.86 cm) (R); Pain 10/10; 23:00 BP 118 / 81; Pulse 98; Resp 16; Pulse Ox 100% on R/A; Pain 8/10; rv 23:30 BP 120 / 93; Pulse 91; Resp 18; Pulse Ox 100% on R/A; rv 23:47 Pain 7/10; rv 04 00:00 BP 125 / 86; Pulse 89; Resp 17; Temp 98.3; Pulse Ox 100% on R/A; rv 02/11 22:10 Body Mass Index 38.37 (86.18 kg, 149.86 cm) MDM: 02/11 22:14 Patient medically screened. tw4 23:24 Differential diagnosis: Nonspecific abd pain, gastritis, viral gastroenteritis, tw4 gastroenteritis. Data reviewed: vital signs, nurses notes. Counseling: I had a detailed discussion with the patient and/or guardian regarding: the historical points, exam findings, and any diagnostic results supporting the discharge/admit diagnosis, lab results. Medication response: Toradol markedly relieved the patient's pain. Response to treatment: the patient's symptoms have markedly improved after treatment, and as a result, I will discharge patient. Special discussion: Based on the patient's Hx, exam, and Dx evaluation, there is no indication for emergent surgery or inpatient Tx. It is understood by the patient/guardian that if the Sx's persist or worsen they need to return immediately for re-evaluation. I discussed with the patient/guardian in detail that at this point there is no indication for admission to the hospital. It is understood, however, that if the symptoms persist or worsen the patient needs to return immediately for re-evaluation. 02/11 22:24 Order name: Basic Metabolic Panel [facility] 02/11 22:24 Order name: CBC with Diff; Complete Time: 23:05 [facility] 02/11 23:05 Interpretation: Normal except: HCT 35.8; NEUT A 8.3; LYM% 11.0; JITENDRA% 77.3. [facility] 02/11 22:24 Order name: Creatinine for Radiology; Complete Time: 23:05 [facility] 02/11 22:24 Order name: Hepatic Function; Complete Time: 23:05 [facility] 02/11 23:05 Interpretation: Normal except: GLOB 3.6. [facility] 02/11 22:24 Order name: Lipase; Complete Time: 23:05 [facility] 02/11 23:05 Interpretation: Within normal limits: LIP 58. [facility] 02/11 22:25 Order name: Basic Metabolic Panel; Complete Time: 23:05 [facility] 02/11 23:05 Interpretation: Normal except: CL 113; CO2 20; GLUC 121; GFR 54. [facility] 02/11 22:38 Order name: Urine Dipstick--Ancillary (enter results); Complete Time: 23:05 [facility] 02/11 23:05 Interpretation: Normal except: UESTR TRACE; UPROT 1+; UBLD 2+. [facility] 02/11 22:38 Order name: Urine --Ancillary (enter results) [facility] 02/11 22:39 Order name: Urine --Ancillary; Complete Time: 23:05 [facility] 02/11 23:05 Interpretation: Within normal limits: URINE PREG NEG. [facility] 02/11 23:24 Order name: Urine Microscopic Only; Complete Time: 00:04 [facility] 02/12 00:04 Interpretation: SQEPI 5-10; UBACT 20-50; URBC 5-10; UWBC 5-10. tw4 02/11 23:56 Order name: Urine Culture [facility] 02/11 22:14 Order name: Urine Dipstick-Ancillary (obtain specimen); Complete Time: 22:31 tw4 02/11 22:14 Order name: Urine Test (obtain specimen); Complete Time: 22:31 tw4 02/11 22:24 Order name: IV Saline Lock; Complete Time: 22:36 tw4 02/11 22:24 Order name: Labs collected and sent; Complete Time: 22:36 tw4 Administered Medications: 22:46 Drug: NS 0.9% 1000 ml Route: IV; Rate: 1 bolus; Site: right forearm; rv 02/12 00:14 Follow up: IV Status: Completed infusion; IV Intake: 1000ml rv 02/11 22:46 Drug: Bentyl 20 mg Route: IM; Site: right deltoid; rv 23:10 Follow up: Response: No adverse reaction; Pain is unchanged, physician notified rv 23:10 Drug: TORadol 30 mg Route: IVP; Site: right forearm; rv 23:47 Follow up: Pain / Adult; Response: Pain is decreased; pain is more on lower abdomen. rv 23:49 Drug: Zofran (Ondansetron) 4 mg Route: IVP; Site: right forearm; rv 02/12 00:14 Follow up: Response: No adverse reaction rv Disposition: 02/12/20 23:36 Discharged to Home. Impression: Other viral enteritis, Urinary tract infection, site not specified. - Condition is Stable. - Discharge Instructions: Urinary Tract Infection, Adult, Viral Gastroenteritis, Adult, [id number]. - Prescriptions for Bentyl 20 mg Oral Tablet - take 1 tablet by ORAL route every 6 hours As needed; 20 tablet. Lomotil 2.5- 0.025 mg Oral Tablet - take 1 tablet by ORAL route every 6 hours As needed; 20 tablet. Macrodantin 100 mg Oral Capsule - take 1 capsule by ORAL route every 6 hours for 10 days; 40 capsule. - Medication Reconciliation Form, Thank You Letter, Antibiotic Education, Prescription Opioid Use form. - Follow up: Private Physician; When: Upon discharge from the Emergency Department; Reason: Recheck today's complaints, Continuance of care, Re-evaluation by your physician. - Problem is new. - Symptoms have improved. Signatures: Dispatcher [employer] EDNE Edilia Topete RN RN Denys Singer MD MD tw4 Clemente Dodson RN RN rv Corrections: (The following items were deleted from the chart) 00:05 02/11 23:36 02/12/2020 23:36 Discharged to Home. Impression: Other viral enteritis. tw4 Condition is Stable. Forms are Medication Reconciliation Form, Thank You Letter, Antibiotic Education, Prescription Opioid Use. Follow up: Private Physician; When: Upon discharge from the Emergency Department; Reason: Recheck today's complaints, Continuance of care, Re-evaluation by your physician. Problem is new. Symptoms have improved. tw4 02/12 00:15 00:05 02/12/2020 23:36 Discharged to Home. Impression: Other viral enteritis; Urinary rv tract infection, site not specified. Condition is Stable. Discharge Instructions: Viral Gastroenteritis, Adult, [id number], Urinary Tract Infection, Adult. Prescriptions for Bentyl 20 mg Oral Tablet - take 1 tablet by ORAL route every 6 hours As needed; 20 tablet, Lomotil 2.5-0.025 mg Oral Tablet - take 1 tablet by ORAL route every 6 hours As needed; 20 tablet, Macrodantin 100 mg Oral Capsule - take 1 capsule by ORAL route every 6 hours for 10 days; 40 capsule. and Forms are Medication Reconciliation Form, Thank You Letter, Antibiotic Education, Prescription Opioid Use. Follow up: Private Physician; When: Upon discharge from the Emergency Department; Reason: Recheck today's complaints, Continuance of care, Re-evaluation by your physician. Problem is new. Symptoms have improved. tw4
--- NOTE | 2020-02-12 23:37 | ER ---
Nurse's Notes [facility] Name: Adelaide Trinidad Age: 20 yrs Sex: Female : 2000 Arrival Date: 02/12/2020 Time: 22:02 Bed 7 Private MD: Diagnosis: Other viral enteritis;Urinary tract infection, site not specified Presentation: 02/11 22:10 Chief complaint: Patient states: that she is having abd pain that is worse in the lower fc areas, along with nausea, acid reflux and diarrhea. Started 2 days ago. Coronavirus screen: Proceed with normal triage. Ebola Screen: Patient negative for fever greater than or equal to 101.5 degrees Fahrenheit, and additional compatible Ebola Virus Disease symptoms Patient denies exposure to infectious person. Patient denies travel to an Ebola-affected area in the 21 days before illness onset. Initial Sepsis Screen: Does the patient meet any 2 criteria? HR > 90 bpm. No. Patient's initial sepsis screen is negative. Does the patient have a suspected source of infection? No. Patient's initial sepsis screen is negative. Risk Assessment: Do you want to hurt yourself or someone else? Patient reports no desire to harm self or others. Onset of symptoms was February 10, 2020. Care prior to arrival: Medication(s) given: Pepto at 1830. Transition of care: patient was not received from another setting of care. 22:10 Method Of Arrival: Ambulatory 22:10 Acuity: LUIZ 3 fc Historical: - Allergies: 22:27 Zithromax; fc 22:27 Bactrim; fc 22:27 Doxycycline; 22:27 Zosyn; fc - Home Meds: 22:27 albuterol sulfate 90 mcg/actuation inhalation HFAA 2 puffs q4hrs prn [Active]; fc Singulair 10 mg Oral tab 1 tab once daily [Active]; - PMHx: 22:27 Anxiety; Asthma; HYPOGLYCEMIA; Depression; scoliosis; fc - PSHx: 22:27 Appendectomy; fc - Immunization history:: Last tetanus immunization: up to date Flu vaccine is not up to date. - Social history:: Smoking status: Patient denies any tobacco usage or history of. Patient/guardian denies using alcohol, street drugs. Screenin:10 Abuse screen: Denies threats or abuse. Nutritional screening: No deficits noted. fc Tuberculosis screening: No symptoms or risk factors identified. Fall Risk None identified. Assessment: 22:46 General: Appears in no apparent distress. Behavior is calm, cooperative. Pain: rv Complains of pain in right lower quadrant and left lower quadrant Pain currently is 8 out of 10 on a pain scale. Quality of pain is described as sharp, Pain began today, upon waking up. Is continuous. Neuro: Level of Consciousness is awake, alert, obeys commands, Oriented to person, place, time, situation. Cardiovascular: Patient's skin is warm and dry. Rhythm is sinus tachycardia. Respiratory: Airway is patent Respiratory effort is even, unlabored. GI: Bowel sounds present X 4 quads. Abd is soft X 4 quads Abdomen is tender to palpation in right lower quadrant and left lower quadrant Reports lower abdominal pain, nausea, Patient currently denies vomiting. : No signs and/or symptoms were reported regarding the genitourinary system. EENT: No signs and/or symptoms were reported regarding the EENT system. Derm: Skin is intact. 23:10 Reassessment: Patient appears in no apparent distress at this time. No changes from rv previously documented assessment. Patient is alert, oriented x 3, equal unlabored respirations, skin warm/dry/pink. patient pain reassessed and relayed to Dr Singer. patient updated on the test results. waiting on urine microscopy report. 23:47 Reassessment: pain reassessed, 7/10 pain scale and complaining of nausea. relayed to Dr claudia Singer. Vital Signs: 22:10 BP 136 / 84; Pulse 118; Resp 18; Temp 98.5(O); Pulse Ox 100% on R/A; Weight 86.18 kg fc (R); Height 4 ft. 11 in. (149.86 cm) (R); Pain 10/10; 23:00 BP 118 / 81; Pulse 98; Resp 16; Pulse Ox 100% on R/A; Pain 8/10; rv 23:30 BP 120 / 93; Pulse 91; Resp 18; Pulse Ox 100% on R/A; rv 23:47 Pain 7/10; rv 02/12 00:00 BP 125 / 86; Pulse 89; Resp 17; Temp 98.3; Pulse Ox 100% on R/A; rv 02/11 22:10 Body Mass Index 38.37 (86.18 kg, 149.86 cm) ED Course: 02/11 22:02 Patient arrived in ED. cl3 22:10 Clemente Dodson, RN is Primary Nurse. rv 22:10 Arm band placed on Patient placed in an exam room, on a stretcher. fc 22:10 Patient has correct armband on for positive identification. Bed in low position. Call light in reach. Pulse ox on. NIBP on. 22:14 Denys Singer MD is Attending Physician. tw4 22:25 Triage completed. 22:30 Inserted saline lock: 22 gauge in right forearm, using aseptic technique. Blood rv collected. 22:30 Initial lab(s) drawn, by ri, sent to lab. rv 02/12 00:15 No provider procedures requiring assistance completed. IV discontinued, intact, rv bleeding controlled, No redness/swelling at site. Pressure dressing applied. Administered Medications: 02/11 22:46 Drug: NS 0.9% 1000 ml Route: IV; Rate: 1 bolus; Site: right forearm; rv 02/12 00:14 Follow up: IV Status: Completed infusion; IV Intake: 1000ml rv 02/11 22:46 Drug: Bentyl 20 mg Route: IM; Site: right deltoid; rv 23:10 Follow up: Response: No adverse reaction; Pain is unchanged, physician notified rv 23:10 Drug: TORadol 30 mg Route: IVP; Site: right forearm; rv 23:47 Follow up: Pain 7/10 Adult; Response: Pain is decreased; pain is more on lower abdomen. rv 23:49 Drug: Zofran (Ondansetron) 4 mg Route: IVP; Site: right forearm; rv 02/12 00:14 Follow up: Response: No adverse reaction rv Intake: 00:14 IV: 1000ml; Total: 1000ml. rv Outcome: 02/11 23:36 Discharge ordered by . tw4 02/12 00:15 Discharged to home ambulatory. rv Condition: improved Discharge instructions given to patient, Instructed on discharge instructions, follow up and referral plans. medication usage, Demonstrated understanding of instructions, follow-up care, medications, Prescriptions given X 3. 00:15 Patient left the ED. rv Signatures: Edilia Topete RN RN Denys Singer MD MD tw4 Clemente Dodson, RN RN rv Mauro Bhardwaj cl3
[2020-02-12] MEDS ORDERED: ONDANSETRON 4 MG/2 ML VIAL ONE (23:47)
[2020-02-12 23:55] LABS: Urine Bacteria 20-50 /HPF (<20); Urine Culture Reflex Order REFLEXED
[2020-02-13 00:34] VITALS: TEMP 98.5; O2SAT 100
[2020-02-13 00:35] VITALS: BP 118/81
== END 2020-02-13 00:15 | disposition home or self-care (01) ==
LOC: ER 21:59
DX: A08.39 Other viral enteritis (principal); N39.0 Urinary tract infection, site not specified; F41.9 Anxiety disorder, unspecified; F32.9 Major depressive disorder, single episode, unspecified; Z88.1 Allergy status to other antibiotic agents; Z88.8 Allergy status to other drugs, medicaments and biological substances
CPT/HCPCS: 96361; 87088; 85025; 87086; 80048; 36415; 81025; 80076; 83690; 96375; 96372; 96374; 99284; J0500; J7030; J2405; 81003; 81015

== ENCOUNTER 2020-02-16 22:46 | Emergency (ER) | payer OTHER ==
--- NOTE | 2020-02-16 23:18 | ER ---
Nurse's Notes [facility] Name: Adelaide Trinidad Age: 20 yrs Sex: Female : 2000 Arrival Date: 02/16/2020 Time: 22:48 Bed 8 Private MD: Diagnosis: Asthma Presentation: 02/15 22:57 Chief complaint: Patient states: "I am having chest pain since about 1600 this evening. jd3 it feels fast and then skips and then lets off then comes back.'. Coronavirus screen: Proceed with normal triage. Ebola Screen: Patient negative for fever greater than or equal to 101.5 degrees Fahrenheit, and additional compatible Ebola Virus Disease symptoms. Initial Sepsis Screen: Does the patient meet any 2 criteria? No. Patient's initial sepsis screen is negative. Does the patient have a suspected source of infection? No. Patient's initial sepsis screen is negative. Risk Assessment: Do you want to hurt yourself or someone else? Patient reports no desire to harm self or others. Onset of symptoms was February 16, 2020. 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 - Social history:: Smoking status: Patient denies any tobacco usage or history of. Patient/guardian denies using alcohol, street drugs, The patient lives with family. - Family history:: not pertinent. Vital Signs: 22:59 BP 119 / 87; Pulse 103; Resp 20 S; Temp 98.9(O); Pulse Ox 99% on R/A; Weight 86.18 kg jd3 (R); Height 4 ft. 11 in. (149.86 cm) (R); Pain 8/10; 22:59 Body Mass Index 38.37 (86.18 kg, 149.86 cm) [facility] ED Course: 22:48 Patient arrived in ED. cf2 22:51 Ly Mcgraw MD is Attending Physician. ma2 22:58 Triage completed. jd3 23:00 Arm band placed on. jd3 23:01 EKG completed in triage. Results shown to MD. jd3 23:01 Patient has correct armband on for positive identification. Bed in low position. Call [facility] light in reach. Side rails up X 1. manager monitoring on. Pulse ox on. NIBP on. 23:10 Taryn Ryan, RN is Primary Nurse. ea Administered Medications: 23:21 Drug: Ativan 1 mg Route: PO; ea 23:22 Drug: Albuterol 5 mg Route: Inhalation; ea Outcome: 23:17 Discharge ordered by . ma2 23:46 Patient left the ED. sg Signatures: Cristino Corona RN Taryn Quigley, Hakan Roche RN, ea, RN RN Ly Merchant MD MD wvTatyana Rand cf2
--- NOTE | 2020-02-16 23:18 | EDPHYS ---
Physician Documentation [facility] Name: Adelaide Trinidad Age: 20 yrs Sex: Female : 2000 Arrival Date: 02/16/2020 Time: 22:48 Bed 8 Private MD: ED Physician Ly Mcgraw HPI: 02/15 23:16 This 20 yrs old Female presents to ER via Ambulatory with complaints of Chest ma2 Pain. 23:16 The patient or guardian reports chest pain that is located primarily in the substernal ma2 area, epigastric area. Associated signs and symptoms: Pertinent negatives: abdominal pain, dizziness, lower extremity swelling. The chest pain is described as a pressure. Duration: The patient or guardian reports a single episode, that is still ongoing. Severity of pain: At its worst the pain was very mild in the emergency department the pain is unchanged. The patient has experienced similar episodes in the past. 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 - Social history:: Smoking status: Patient denies any tobacco usage or history of. Patient/guardian denies using alcohol, street drugs, The patient lives with family. - Family history:: not pertinent. ROS: 23:16 Constitutional: Negative for fever, chills, and weight loss. ma2 23:16 All other systems are negative. Exam: 23:16 Constitutional: This is a well developed, well nourished patient who is awake, alert, ma2 and in no acute distress. ENT: Nares patent. No nasal discharge, no septal abnormalities noted. Tympanic membranes are normal and external auditory canals are clear. Oropharynx with no redness, swelling, or masses, exudates, or evidence of obstruction, uvula midline. Mucous membranes moist. Neck: Trachea midline, no thyromegaly or masses palpated, and no cervical lymphadenopathy. Supple, full range of motion without nuchal rigidity, or vertebral point tenderness. No Meningismus. Chest/axilla: Normal chest wall appearance and motion. Nontender with no deformity. No lesions are appreciated. Cardiovascular: Regular rate and rhythm with a normal S1 and S2. No gallops, murmurs, or rubs. Normal PMI, no JVD. No pulse deficits. Respiratory: Lungs have equal breath sounds bilaterally, clear to auscultation and percussion. No rales, rhonchi or wheezes noted. No increased work of breathing, no retractions or nasal flaring. Abdomen/GI: Soft, non-tender, with normal bowel sounds. No distension or tympany. No guarding or rebound. No evidence of tenderness throughout. MS/ Extremity: Pulses equal, no cyanosis. Neurovascular intact. Full, normal range of motion. Neuro: Awake and alert, GCS 15, oriented to person, place, time, and situation. Cranial nerves II-XII grossly intact. Motor strength 5/5 in all extremities. Sensory grossly intact. Cerebellar exam normal. Normal gait. Vital Signs: 22:59 BP 119 / 87; Pulse 103; Resp 20 S; Temp 98.9(O); Pulse Ox 99% on R/A; Weight 86.18 kg jd3 (R); Height 4 ft. 11 in. (149.86 cm) (R); Pain 8/10; 22:59 Body Mass Index 38.37 (86.18 kg, 149.86 cm) jd3 MDM: 22:51 Patient medically screened. ma2 23:16 Differential diagnosis: anxiety, chest wall pain, esophagitis, gastritis, ma2 gastroesophageal reflux disease (GERD). VIVIENNE Risk Score: not applicable. Data reviewed: vital signs, nurses notes. Counseling: I had a detailed discussion with the patient and/or guardian regarding: the historical points, exam findings, and any diagnostic results supporting the discharge/admit diagnosis, the presence of at least one elevated blood pressure reading (>120/80) during this emergency department visit, the need for outpatient follow up. 02/15 22:51 Order name: EKG - Nurse/Tech; Complete Time: 23:23 ma2 02/15 22:56 Order name: EKG; Complete Time: 22:57 jd3 Administered Medications: 23: Drug: Ativan 1 mg Route: PO; ea 23: Drug: Albuterol 5 mg Route: Inhalation; ea Disposition: 02/16/20 23:17 Discharged to Home. Impression: Asthma. - Condition is Stable. - Discharge Instructions: Asthma, Adult, [id number]. - Medication Reconciliation Form, Thank You Letter, Antibiotic Education, Prescription Opioid Use form. - Follow up: Private Physician; When: Tomorrow; Reason: Continuance of care. Signatures: Cristino Corona RN Taryn Quigley RN RN ea Davies, Jonathon, RN RN jd3 Ly Mcgraw MD MD ma2 Corrections: (The following items were deleted from the chart) 23:46 23:17 02/16/2020 23:17 Discharged to Home. Impression: Asthma. Condition is Stable. sg Forms are Medication Reconciliation Form, Thank You Letter, Antibiotic Education, Prescription Opioid Use. Follow up: Private Physician; When: Tomorrow; Reason: Continuance of care. ma2
[2020-02-16] MEDS ORDERED: LORAZEPAM 1 MG TABLET ONE (23:22)
[2020-02-16] MEDS ORDERED: ALBUTEROL 2.5 MG/3 ML NEB SOL ONE (23:23)
[2020-02-17 00:42] VITALS: BP 119/87; TEMP 98.9; O2SAT 99
--- NOTE | 2020-02-17 18:31 | EKG ---
Test Date: 2020-02-16 Test Time: 23:04:22 Building Contractor: CHRISTIANNE MEASUREMENT RESULTS: Intervals: Rate: 92 SD: 124 QRSD: 74 QT: 348 QTc: 430 Wolf: P: 41 SD: 124 QRS: 81 T: 31 INTERPRETIVE STATEMENTS: Normal sinus rhythm Normal ECG Compared to ECG 07/05/2019 14:55:08 Short SD interval no longer present T-wave abnormality no longer present Electronically Signed On 02-17-20 18:31:10 CDT by Elijah Yanez
== END 2020-02-16 23:46 | disposition home or self-care (01) ==
LOC: ER 22:46
DX: J45.909 Unspecified asthma, uncomplicated (principal); Z88.1 Allergy status to other antibiotic agents; Z88.8 Allergy status to other drugs, medicaments and biological substances
CPT/HCPCS: 93005

== ENCOUNTER 2020-03-27 20:32 | Emergency (ER) | payer OTHER ==
--- OUTSIDE RECORDS SUMMARY | 2020-03-27 20:34 | XMS REPORT | Clinical Summary ---
:2000 Author Organization [facility] Address [address] [place] [address] Care Team Providers Name Role Phone Alina Borrero MD Primary Care Provider Allergies Active Allergy Reactions Severity Noted Date Comments Azithromycin Palpitations Low 06/28/2018 Sulfamethoxazole-Trimethoprim 05/04/2019 Doxycycline GI Intolerance 06/28/2018 Medications Medication Sig Dispensed Refills Start Date End Date Status methylPREDNISolone Use as directed 21 tablet 0 05/04/201904/27 (MEDROL DOSEPAK) 4 mg by package 19 tablet instructions meloxicam (MOBIC) 15 mg Take 1 tablet (15 30 tablet 1 05/04/20 19 06/03/20 tablet mg total) by 19 mouth daily for 30 days. Start after completing steroid pack. Take with food. methocarbamol (ROBAXIN) Take 1 tablet 40 tablet 0 06/03/2019 0 06/18/20 500 MG tablet (500 mg total) by 19 mouth every 8 (eight) hours as needed for muscle spasms for up to 15 days. gabapentin (NEURONTIN) Take 1 capsule 60 capsule 0 09/10/2019 10/10/20 300 mg capsule (300 mg total) by 19 mouth 2 (two) times a day for 30 days. diazePAM (VALIUM) 5 MG Take 1 tablet (5 1 tablet 0 10/01/2019 10/01/20 tablet mg total) by 19 mouth once for 1 dose. 30 MINUTES BEFORE PROCEDURE RT HIP Active Problems Problem Noted Date Iliopsoas bursitis of right hip 10/01/2019 Synovial cyst of hip 10/01/2019 Overview: RT HIP Encounters Date Type Specialty Care Team Description 11/09/2019 Office Visit Orthopedic Surgery Mitchell, Deon A., Iliops oas bursitis MD of right hip (Primary Dx) 10/14/2019 Hospital Encounter Radiology Deon Mitchell, Bursit fish denise MD right 10/14/2019 Hospital Encounter Radiology Elizabeth Kay Iliops oas bursitis of right hip; Y., PA Synovial cyst of hip Deon Mitchell MD 10/14/2019 Transcribe Orders Radiology Deon Mitchell, Kamilahiti fish varela MD right (Primary Dx) 10/14/2019 Orders Only Orthopedic Surgery Elisa Correia Synovi al cyst of hip (Primary Dx); Iliopsoas bursi tis of right hip 10/01/2019 Office Visit Orthopedic Surgery Deon Mitchell, Iliops oas bursitis of right hip (Primary Dx); Synovial cyst o f hip 09/10/2019 Office Visit Orthopedic Surgery Deon Mitchell, Pain o f right hip MD joint (Primary Dx) 07/16/2019 Telephone Orthopedic Surgery Elizabeth Kay PA 07/13/2019 Hospital Encounter Rene Finney MD 07/13/2019 Office Visit Orthopedic Surgery Mando Benitez Right gr oin pain (Primary Dx); TONY Kauffman Adolescent idio pathic scoliosis of lumbar region; Lower limb robert th difference 07/02/2019 Procedure visit Neurology Mando Benitez Chronic chantell ateral low back pain with right-sided sciatica; TONY Kauffman Right lumbar radiculitis; Nestor Molina MD Right groin pain; Adolescent idio pathic scoliosis of lumbar region; Lower limb robert th difference 06/03/2019 Office Visit Orthopedic Surgery Mando Benitez Chronic bilateral low back pain with right-sided sciatica (Primary Dx); TONY Kauffman Right lumbar ra diculitis; Right groin sukhdev n; Adolescent idio pathic scoliosis of lumbar region; Lower limb robert th difference 05/04/2019 Hospital Encounter Rene Finney MD 05/04/2019 Office Visit Orthopedic Surgery Mando Benitez Chronic bilateral low back pain with right-sided sciatica (Primary Dx); TONY Kauffman Right lumbar ra diculitis; Right groin sukhdev n; Adolescent idio pathic scoliosis of lumbar region; Lower limb robert th difference 04/16/2019 Office Visit Orthopedic Surgery Deon Mitchell, Psoas tendinitis of right side (Lesia luis enrique Dx) after 03/27/2019 Family History Medical History Relation Name Comments Diabetes Maternal Grandfather Elias Judge Diabetes Mother [place] Pinzonece Relation Name Status Comments Maternal Grandfather Elias Judge Mother [place] Neece Social History Tobacco Use Types Packs/Day Years Used Date Never Smoker 0 0 Smokeless Tobacco: Never Used Alcohol Use Drinks/Week oz/Week Comments No Sex Assigned at Date Recorded Female 04/10/2019 2:53 PM CDT Job Start Date Occupation Industry Not on file Not on file Not on file Travel History Travel Start Travel End No recent travel history available. Last Filed Vital Signs Vital Sign Reading Time Taken Comments Blood Pressure - - Pulse - - Temperature - - Respiratory Rate - - Oxygen Saturation - - Inhaled Oxygen Concentration - - Weight 72.6 kg (160 lb) 11/09/2019 4:22 PM [employer] [facility] Height 149.9 cm (4' 11") 11/09/2019 4:22 PM [employer] Body Mass Index 32.32 11/09/2019 4:22 PM [employer] Plan of Treatment Health Maintenance Due Date Last Done Comments CHLAMYDIA SCREENING 2015 CERVICAL CANCER SCREENING 01/21/2020 INFLUENZA VACCINE 05/28/2020 Procedures Procedure Name Priority Date/Time Associated Diagnosis Comme nts FL FLUOROSCOPY Routine 10/14/2019 11:20 Iliopsoas bursitis Res ults for this GUIDED NEEDLE AM [employer] of right hip procedure are in PLACEMENT Synovial cyst of hip the res ults section. US GUIDED INJECTION Routine 10/14/2019 11:17 Bursitis, ischial , Results for this AM [employer] right procedure are i n the results section. XR PELVIS 1 OR 2 VW Routine 09/10/2019 3:00 Pain of right hip Results for this PM [employer] joint procedure are i n the results section. MRI SPINE EXTERNAL Routine 07/13/2019 1:10 Resul ts for this STUDY PM CDT procedure are i n the results section. XR LUMBAR SPINE Routine 05/04/2019 3:09 Chronic bilateral Res ults for this COMPLETE W BENDING PM CDT low back pain, with pr ocedure are in sciatica presence the result s unspecified section. after 03/27/2019 Results FL Fluoroscopy Guided Needle Placement (10/14/2019 11:20 AM [employer]) Specimen Narrative Performed At EXAMINATION: FL FLUOROSCOPY GUIDED NEE DLE PLACEMENT [facility] CLINICAL HISTORY: M70.71 Other bursitis of hip rig ht hip, M71.359 Other bursal cyst unspecified hip, synovial cyst gerson r right hip iliopsoas bursitis right COMPARISON: None. ANESTHESIA: Lidocaine local. TOTAL DOSE: 14.9 mGy ref air Kerma FINDINGS: Patient was placed in supine position. Ski n was sterilely prepped and draped. Lidocaine was infiltrated into the soft tissues for local anesthesia. A 22-gauge needle was advanced into the small synovial cyst located anterior to the right hip joint under ultrasound edelmira nce. Aspiration did not yield fluid. A 22-gauge needle was advanced into the right iliopsoa s bursa under fluoroscopic and ultrasound guidance and 80 mg of Depo Medrol and 8 cc of 0.25% Bupivacaine were infused. Patient tolerated the procedure well with no immediate complication and left the room in stable condition. ESTIMATED BLOOD LOSS: 0 cc. IMPRESSION: 1. Technically successful fluoroscopic guided therapeu tic injection of the right iliopsoas bursa. 2. A 22-gauge needle was advanced into the synovial cy st located anterior to the right hip joint under ultrasound edelmira nce; however aspiration did not yield fluid. Procedure Note Hm Interface, Radiology Results Incoming - 10/14/2019 11:34 AM [facility] [employer] [facility] EXAMINATION: FL FLUOROSCOPY GUIDED NEEDLE PLACEMENT CLINICAL HISTORY: M70.71 Other bursitis of hip right hip, M71.359 Other bursal cyst unspecified hip, synovial cyst near right hip iliopsoas bursitis right COMPARISON: None. ANESTHESIA: Lidocaine local. TOTAL DOSE: 14.9 mGy ref air Kerma FINDINGS: Patient was placed in supine position. Skin was sterilely prepped and draped. Lidocaine was infiltrated into the soft tissues for local anesthesia. A 22-gauge needle was advanced into the small synovial cyst located anterior to the right hip joint under ultrasound guidance. Aspiration did not yield fluid. A 22-gauge needle was advanced into the right iliopsoas bursa under fluoroscopic and ultrasound guidance and 80 mg of DepoMedrol and 8 cc of 0.25% Bupivacaine were infused. Patient tolerated the procedure well wit h no immediate complication and left the room in stable condition. ESTIMATED BLOOD LOSS: 0 cc. IMPRESSION: 1. Technically successful fluoroscopic g uided therapeutic injection of the right iliopsoas bursa. 2. A 22-gauge needle was advanced into t he synovial cyst located anterior to the right hip joint under ultrasound guidance; however aspiration did not yield fluid. Performing Organization Address City/State/Zipcode Phone Number [facility] [address] [place] [address] [place] Guided Injection (10/14/2019 11:17 AM [facility] [facility]) Specimen Narrative Performed At EXAMINATION: ULTRASOUNDED GUIDED NEEDL E PLACEMENT [facility] CLINICAL HISTORY: M70.71 Other bursitis of hip rig ht hip, M71.359 Other bursal cyst unspecified hip, synovial cyst gerson r right hip iliopsoas bursitis right COMPARISON: None. ANESTHESIA: Lidocaine local. TOTAL DOSE: 14.9 mGy ref air Kerma FINDINGS: Patient was placed in supine position. Ski n was sterilely prepped and draped. Lidocaine was infiltrated into the soft tissues for local anesthesia. A 22-gauge needle was advanced into the small synovial cyst located anterior to the right hip joint under ultrasound edelmira nce. Aspiration did not yield fluid. A 22-gauge needle was advanced into the right iliopsoa s bursa under fluoroscopic and ultrasound guidance and 80 mg of Depo Medrol and 8 cc of 0.25% Bupivacaine were infused. Patient tolerated the procedure well with no immediate complication and left the room in stable condition. ESTIMATED BLOOD LOSS: 0 cc. IMPRESSION: 1. Technically successful fluoroscopic guided therapeu tic injection of the right iliopsoas bursa. 2. A 22-gauge needle was advanced into the synovial cy st located anterior to the right hip joint under ultrasound edelmira nce; however aspiration did not yield fluid. Procedure Note Interface, Radiology Results Incoming - 10/14/2019 11:35 AM [facility] [facility] EXAMINATION: ULTRASOUNDED GUIDED NEEDLE PLACEMENT CLINICAL HISTORY: M70.71 Other bursitis of hip right hip, M71.359 Other bursal cyst unspecified hip, synovial cyst near right hip iliopsoas bursitis right COMPARISON: None. ANESTHESIA: Lidocaine local. TOTAL DOSE: 14.9 mGy ref air Kerma FINDINGS: Patient was placed in supine position. Skin was sterilely prepped and draped. Lidocaine was infiltrated into the soft tissues for local anesthesia. A 22-gauge needle was advanced into the small synovial cyst located anterior to the right hip joint under ultrasound guidance. Aspiration did not yield fluid. A 22-gauge needle was advanced into the right iliopsoas bursa under fluoroscopic and ultrasound guidance and 80 mg of DepoMedrol and 8 cc of 0.25% Bupivacaine were infused. Patient tolerated the procedure well wit h no immediate complication and left the room in stable condition. ESTIMATED BLOOD LOSS: 0 cc. IMPRESSION: 1. Technically successful fluoroscopic g uided therapeutic injection of the right iliopsoas bursa. 2. A 22-gauge needle was advanced into t he synovial cyst located anterior to the right hip joint under ultrasound guidance; however aspiration did not yield fluid. Performing Organization Address [facility] Phone Number [facility] [address] [place] [address] XR Pelvis 1 Or 2 Vw (09/10/2019 3:00 PM [employer] [facility] [facility]) Specimen Narrative Performed At This result has an attachment that is no t available. AP pelvis and lateral x-ray of the right hip shows no significant bony [facility] abnormalities. Performing Organization Address [facility] Phone Number [facility] [address] [place] [address] MRI Spine External Study (07/13/2019 1:10 PM CDT) Specimen Narrative Performed At This exam was not acquired at a Method[facility] t facility and has not been [facility] interpreted by a [facility] Provider. T he exam was imported into our imaging system for comparisons purposes. Performing Organization Address [facility] Phone Number [facility] [address] [place] [address] XR Lumbar Spine Complete W Flex and Ext (05/04/2019 3:09 PM CDT) Specimen Narrative Performed At This result has an attachment that is no t available. 7 views of the lumbar spine are reviewed. AP view demonstrates evidence [facility] of an adolescent idiopathic lumbar scoliosis measuring approximately 22 degrees with apex to the left. The rotation is most significant at L2 and L3. There is evidence of a limb length discrepancy o n the left measuring approximately 1.2 cm. There are no significant degen erative changes present in the lumbar spine. There is no instability on flexion or extension. There is no evidence of facet joint arthr opathy. There is no evidence of acute fracture in the lumbar spine. 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
--- OUTSIDE RECORDS SUMMARY | 2020-03-27 20:35 | XMS REPORT | Summary of Care ---
:2000 Author Organization [facility] - [facility] Address [address] [place] [address] Care Team Providers Name Role Phone Ana Burnett Primary Care Provider Encounter Details Date Type Department Care Team Description 01/06/2020 Orders Only [facility] Doctor Unassigned, No [address] [facility] Name [place] [id number] [place] [address] Allergies Active Allergy Reactions Severity Noted Date Comments Doxycycline Nausea and/or Vomiting 12/07/2019 Sulfamethoprim Ds Hives 12/07/2019 Azithromycin Other - See comments 11/19/2017 Tachyca rdia and numbness of lower extrem ities documented as of this encounter (statuses as of 01/06/2020) Medications Medication Sig Dispensed Refills Start Date End Date Status MONTELUKAST SODIUM Take 10 mg by 0 Active (SINGULAIR ORAL) mouth daily. CETIRIZINE HCL Take 10 mg by 0 A ctive (ZYRTEC ORAL) mouth daily. FLUOXETINE HCL Take 10 mg by 0 A ctive (PROZAC ORAL) mouth at bedtime. Mometasone-Formoterol Inhale 1 Puff 2 13 g 2 11/19/2017 Active (DULERA) 100-5 (two) times daily. mcg/actuation inhaler predniSONE 20 mg Take 1 tablet by 4 tablet 0 11/19/2017 Active tablet mouth daily. buPROPion XL Take 300 mg by 0 Ac tive (WELLBUTRIN XL) 300 mouth daily. mg 24 [...] Inhale 2 Puffs 8.5 g 0 12/03/2019 A ctive mcg/actuation every 4 (four) inhalerIndications: hours as needed Exacerbation of for Wheezing or asthma, unspecified Shortness of asthma severity, Breath. unspecified whether persistent fluticasone Inhale 1 Puff 2 12 g 0 12/03/2019 A ctive propionate (FLOVENT (two) times daily. HFA) 110 mcg/actuation inhalerIndications: Exacerbation of asthma, unspecified asthma severity, unspecified whether persistent mupirocin 2 % Apply to area(s) 22 [...] Inhale 2 Puffs 8.5 g 0 12/14/2019 A ctive mcg/actuation every 4 (four) inhalerIndications: hours as needed Asthma with acute for Wheezing or exacerbation, Shortness of unspecified asthma Breath. severity, unspecified whether persistent documented as of this encounter (statuses as of 01/06/2020) Active Problems Problem Noted Date Asthma attack 02/08/2018 Moderate asthma with exacerbation 11/19/2017 Obesity (BMI 30-39.9) 11/19/2017 Asthma exacerbation 11/19/2017 Sinus tachycardia 11/19/2017 documented as of this encounter (statuses as of 01/06/2020) Immunizations Name Administration Dates Next Due DTAP [...] of this encounter Last Filed Vital Signs Not on filedocumented in this encounter Plan of Treatment Health [...] Name Priority Date/Time Associated Diagnosis Comme nts CONSENT/REFUSAL FOR Routine 01/06/2020 12:33 PM CDT DIAGNOSIS AND TREATMENT documented in this encounter Results Not on filedocumented in this encounter Insurance Payer Benefit Plan / Group Subscriber ID Effective Dates Phone Address Type AETNA AETNA HMO [id number] 2015-Present HMO documented as of this encounter
--- OUTSIDE RECORDS SUMMARY | 2020-03-27 20:36 | XMS REPORT | Summary of Care ---
:2000 Author Organization [facility] Address [address] [place] [id number] Care Team Providers Name Role Phone Ana Burnett Primary Care Provider Reason for Visit Reason Comments DYSMENORRHEA Encounter Details Date Type Department Care Team Description 01/26/2020 Telemedicine Visit [facility] Cristin Rosa , Dysmenorrhea (Primary Dx); Healthcare- PA-C Counseling for initiation of contr ol method [address], [address] [facility] [address] [place] [id number] Allergies Active Allergy Reactions Severity Noted Date Comments Doxycycline Nausea and/or 12/07/2019 Vomiting Sulfamethoprim Ds Hives 12/07/2019 Azithromycin Other - See comments 11/19/2017 Tachyca rdia and numbness of low er extremities Piperacillin-Tazobactam Hives 01/06/2020 documented as of this encounter (statuses as of 01/26/2020) Medications Medication Sig Dispensed Refills Start Date [...] unspecified asthma Breath. severity, unspecified whether persistent predniSONE 20 mg Take 3 tablets by 15 tablet 0 01/06/2020 Active tabletIndications: mouth every Moderate persistent morning. asthma with exacerbation ondansetron 4 mg Take 1 tablet by 10 tablet 0 01/06/2020 Active disintegrating mouth every 12 tabletIndications: (twelve) hours as Moderate persistent needed for Nausea asthma with and Vomiting exacerbation (N/V). propranolol HCl Take by mouth. 0 Active (PROPRANOLOL ORAL) GABAPENTIN ORAL Take by mouth. 0 Active NUVARING 0.12-0.015 Insert 1 Each into 3 Each 4 01/26/2020 Active mg/24 hr vaginal vagina once every insertIndications: month. Insert Dysmenorrhea, vaginally and Counseling for leave in place for initiation of 3 consecutive control method weeks, then remove for 1 week. documented as of this encounter (statuses as of 01/26/2020) Active Problems Problem Noted Date Asthma attack 02/08/2018 Moderate asthma with exacerbation 11/19/2017 Obesity (BMI 30-39.9) 11/19/2017 Asthma exacerbation 11/19/2017 Sinus tachycardia 11/19/2017 documented as of this encounter (statuses as of 01/26/2020) Immunizations Name Administration Dates Next Due DTAP 01/31/2017 HPV 01/31/2017 Hep B, Adol or Pedi Dosage 01/31/2017 Pneumococcal Polysaccharide, PPSV23 (PNEUMOVAX) 02/09/2018 documented as of this encounter Social History Tobacco Use Types Packs/Day Years Used Date Never Smoker Smokeless Tobacco: Never Used Alcohol Use Drinks/Week oz/Week Comments Never Alcohol Habits Answer Date Recorded How often do you have a drink containing alcohol? Never 01/26/2020 How many drinks containing alcohol do you have on a typical Not asked day when you are drinking? How often do you have six or more drinks on one occasion? No t asked Sex Assigned at Date Recorded Not on file Job Start Date Occupation Industry Not on file Not on file Not on file Travel History Travel Start Travel End No recent travel history available. documented as of this encounter Last Filed Vital Signs Not on filedocumented in this encounter Patient Instructions Patient Baylee Wright MA - 01/26/2020 2:00 PM CDT Patient Education Control Methods control methods are used to help prevent .There are many different methods to choose from. Talk to your healthcare provider about which method is right for you.Be sure to ask your provider about the effectiveness of each method. Also ask about the benefits, risks, and side effects of each method. Hormones Some control methods work by releasing hormones such as progestin and estrogen. These methods include hormone implants, hormone shots, the vaginal ring, the patch,and control pills. They all work by stopping ovulation (release of the egg from the ovary). The implant is a small device that needs to be placed in the upper arm by a trained healthcare provider. It works for up to3 years.Hormone injections must be repeated every 3 months.The vaginal ring must be replaced monthly (it can be removed during the fourth week of each cycle). The patch must be replaced weekly (it is not worn during the fourth week of each cycle). control pills must be taken every day. All of these met hods are effective and can be stopped at any time. Intrauterine device (IUD) An IUD is a small, T-shaped device. It must be placed in the uterus by a trained healthcare provider.There are different types of IUDs available. They work by causing changes in the uterus that make it harder for sperm to reach the egg. Depending on the type of IUD you have, it may work for several years or longer. The IUD is a reversible control method. This means it can be removed at any time. Condom A condom is a sheath that forms a thin barrier between the penis and the vagina.It helps prevent by keeping sperm from entering the vagina. When latex condoms are used, they have the added benefit of protecting against most STIs (sexually transmitted infections).Condoms are used each time there is sexual intercourse and should be discarded after each use. Ask your healthcare provider about the different types of condoms available. These include both the male condom and female condom. Spermicide Spermicides come as foams, jellies, creams, suppositories, andtablets.They help prevent by killing sperm. When used alone they are not that reliable. They work best when combined with other control methods such as diaphragms and cervical caps. Sponge, diaphragm, and cervical cap All of these methods help prevent by covering the opening of the uterus (cervix). This prevents sperm from passing through. The sponge contains spermicide. It can be bought over the counter. The sponge must be left in place for at least 6 hours after the last time you have sex.However, it should not stay in place for morethan 24 hours. It should be discarded after it is used. Thediaphragmand cervical cap must be fitted and prescribed by your healthcare provider. Both areused with spermicide.The diaphragm must be left in place for at least 6 hours after sex. However, it should not stay in place for more than 24 hours.It can be washed and reused. The cervical cap must be left in place for at least 6 hours after sex. However, it should not stay in place for more than 48 hours. It can be washed and reused. Withdrawal method This is when the man pulls his penis out of the vagina just before ejaculation (coming). This lowers the amount of sperm entering the vagina. Be aware that fluids released just before ejaculationoften still contain some sperm, so this method is not as reliable as certain other methods. Rhythm method This method requires that you know when in your menstrual cycle you are likely to become . Then, you avoid sex during those days. This requires careful planning and good discipline. Your healthcare provider can explain more about how this works. Tubal ligation and vasectomy These are surgical methods to prevent . Tubal ligation is an option for women. The fallopian tubes are blocked or cut (ligated). This keeps the egg from passing into the uterus or sperm from reaching the egg. Vasectomy is an option for men. The tubes that normally carry sperm to the penis areeither closed or blocked. Both tubal ligation and vasectomy are permanent control methods. This means reversal is either not possible or unlikely to work.They are good choices for women and menwho know that they do not want to have children in the future. [employer] last reviewed this educational content on 08/28/201719999762-1626 [employer]. [address] [place] [address], [place] [address]. All rights reserved. This information is not intended as a substitute for professional medical care. Always follow your healthcare professional's instructions. Patient Education Ethinyl Estradiol; Etonogestrel vaginal ring Brand Name: NuvaRing What is this medicine? ETHINYL ESTRADIOL; ETONOGESTREL (ETH in il es tra DYE ole; et oh mila TRACY trel) vaginal ring is a flexible, vaginal ring used as a contraceptive ( control method). This medicine combines two types of female hormones, an estrogen and a progestin. This ring is used to prevent ovulation and . Each ring is effective for one month. How should I use this medicine? Insert the ring into your vagina as directed. Follow the directions on the prescription label. The ring will remain place for 3 weeks and is then removed for a 1-week break. A new ring is inserted 1 week after the last ring was removed, on the same day of the week. Check often to make sure the ring isstill in place, especially before and after sexual intercourse. If the ring was out of the vagina for an unknown amount of time, you may not be protected from . Perform a test and call your doctor. Do not use more often than directed. A patient package insert for the product will be given with each prescription and refill. Read this sheet carefully each time. The sheet may change frequently. Contact your manager delivery regarding the use of this medicine in children. Special care may be needed. This medicine has been used in female children who have started having menstrual periods. What side effects may I notice from receiving this medicine? Side effects that you should report to your doctor or health career and guidance counselor as soon as possible: breast tissue changes or discharge changes in vaginal bleeding during your period or between your periods chest pain coughing up blood dizziness or fainting spells headaches or migraines leg, arm or groin pain severe or sudden headaches stomach pain (severe) sudden shortness of breath sudden loss of coordination, especially on one side of the body speech problems symptoms of vaginal infection like itching, irritation or unusual discharge tenderness in the upper abdomen vomiting weakness or numbness in the arms or legs, especially on one side of the body yellowing of the eyes or skin Side effects that usually do not require medical attention (report to your doctor or health career and guidance counselor if they continue or are bothersome): breakthrough bleeding and spotting that continues beyond the 3 initial cycles of pills breast tenderness mood changes, anxiety, depression, frustration, anger, or emotional outbursts increased sensitivity to sun or ultraviolet light nausea skin rash, acne, or brown spots on the skin weight gain (slight) What may interact with this medicine? Do not take this medicine with the following medication: dasabuvir; ombitasvir; paritaprevir; ritonavir ombitasvir; paritaprevir; ritonavir This medicine may also interact with the following medications: acetaminophen antibiotics or medicines for infections, especially rifampin, rifabutin, rifapentine, and griseofulvin, and possibly penicillins or tetracyclines aprepitant ascorbic acid (vitamin C) atorvastatin barbiturate medicines, such as phenobarbital bosentan carbamazepine caffeine clofibrate cyclosporine dantrolene doxercalciferol felbamate grapefruit juice hydrocortisone medicines for anxiety or sleeping problems, such as diazepam or temazepam medicines for diabetes, including pioglitazone modafinil mycophenolate nefazodone oxcarbazepine phenytoin prednisolone ritonavir or other medicines for HIV infection or AIDS rosuvastatin selegiline soy isoflavones supplements Mahendra's wort tamoxifen or raloxifene theophylline thyroid hormones topiramate warfarin What if I miss a dose? You will need to replace your vaginal ring once a month as directed. If the ring should slip out, orif you leave it in longer or shorter than you should, contact your health career and guidance counselor for advice. Where should I keep my medicine? Keep out of the reach of children. Store at room temperature between 15 and 30 degrees C (59 and 86 degrees F) for up to 4 months. The product will after 4 months. Protect from light. Throw away any unused medicine after the expiration date. What should I tell my health care provider before I take this medicine? They need to know if you have or ever had any of these conditions: abnormal vaginal bleeding blood vessel disease or blood clots breast, cervical, endometrial, ovarian, liver, or uterine cancer diabetes gallbladder disease heart disease or recent heart attack high blood pressure high cholesterol kidney disease liver disease migraine headaches stroke systemic lupus erythematosus (SLE) tobacco smoker an unusual or allergic reaction to estrogens, progestins, other medicines, foods, dyes, or preservatives or trying to get breast-feeding What should I watch for while using this medicine? Visit your doctor or health career and guidance counselor for regular checks on your progress. You will need a regular breast and pelvic exam and Pap smear while on this medicine. Use an additional method of contraception during the first cycle that you use this ring. Do not use a diaphragm or female condom, as the ring can interfere with these control methods and their proper placement. If you have any reason to think you are , stop using this medicine right away and contact your doctor or health career and guidance counselor. If you are using this medicine for hormone related problems, it may take several cycles of use to see improvement in your condition. Smoking increases the risk of getting a blood clot or having a stroke while you are using hormonal control, especially if you are more than 35 years old. You are strongly advised not to smoke. This medicine can make your body retain fluid, making your fingers, hands, or ankles swell. Your blood pressure can go up. Contact your doctor or health career and guidance counselor if you feel you are retaining fluid. This medicine can make you more sensitive to the sun. Keep out of the sun. If you cannot avoid beingin the sun, wear protective clothing and use sunscreen. Do not use sun lamps or tanning beds/booths. If you wear contact lenses and notice visual changes, or if the lenses begin to feel uncomfortable, consult your eye childcare director. In some women, tenderness, swelling, or minor bleeding of the gums may occur. Notify your dentist ifthis happens. Brushing and flossing your teeth regularly may help limit this. See your dentist regularly and inform your dentist of the medicines you are taking. If you are going to have elective surgery, you may need to stop using this medicine before the surgery. Consult your health career and guidance counselor for advice. This medicine does not protect you against HIV infection (AIDS) or any other sexually transmitted diseases. NOTE:This sheet is a summary. It may not cover all possible information. If you have questions aboutthis medicine, talk to your doctor, pharmacist, or health care provider. Copyright 2018 [employer] documented in this encounter Progress Notes Cristin Rosa PA-C - 01/26/2020 2:00 PM CDT TELEHEALTH NOTE -conducted OV via telehealth due to covid-19 crisis- Verbal consent obtained from Patient: Adelaide Trinidad for telehealth services provided below. Communication with patient was conducted via Telephone. Location of Patient: Home Location of Provider: Clinic Date of Service: 01/26/2020 Chief Complaint: painful periods HPI: Adelaide Trinidad is a 20 year old female with Past Medical History: Diagnosis Date Asthma Depression Left wrist fracture Patient reports began menses at age 12 and states it has always been regular and monthly. Patient reports it has always been very painful, causing nausea, vomiting, headache, and painful cramps. Patient reports has tried nexplanon, control patch, and nuvaring before. Patient discontinued it due to weight gain. Patient is wanting to try getting on control again. Patient reports takes NSAIDS and it does not help relieve the pain. Patient reports she began her menses yesterday and she isin pain today. MEDICATIONS: Outpatient Medications Marked as Taking for the 01/26/20 encounter (Telemedicine Visit) with Cristin Rosa PA-C Medication Sig Dispense Refill GABAPENTIN ORAL Take by mouth. NUVARING 0.12-0.015 mg/24 hr vaginal insert Insert 1 Each into vagina once every month. Insert vaginally and leave in place for 3 consecutive weeks, then remove for 1 week. 3 Each 4 propranolol HCl (PROPRANOLOL ORAL) Take by mouth. albuterol 90 mcg/actuation inhaler Inhale 2 Puffs every 4 (four) hours as needed for Wheezing orShortness of Breath. 8.5 g 0 albuterol 2.5 mg /3 mL (0.083 %) nebulizer solution Inhale 3 mL every 4 (four) hours as needed for Wheezing or Shortness of Breath. 180 mL 0 CETIRIZINE HCL (ZYRTEC ORAL) Take 10 mg by mouth daily. MONTELUKAST SODIUM (SINGULAIR ORAL) Take 10 mg by mouth daily. ROS She has no complaints and reports is doing well. Patient denies any abnormal/pelvic pain, discharge, dysuria, hematuria, abnormal bleeding. Denies fever, chills, body aches, sob, chest pain, dyspnea. +menstrual problem ROS otherwise negative. TELEHEALTH EXAM Alert. Happy. Stable. Answering and asking questions appropriately. ASSESSMENT/ PLAN Adelaide Trinidad is a 20 year old female with PMH as above presenting with: 1. Dysmenorrhea - NUVARING 0.12-0.015 mg/24 hr vaginal insert; Insert 1 Each into vagina once every month. Insert vaginally and leave in place for 3 consecutive weeks, then remove for 1 week. Dispense: 3 Each; Refill: 4 2. Counseling for initiation of control method - NUVARING 0.12-0.015 mg/24 hr vaginal insert; Insert 1 Each into vagina once every month. Insert vaginally and leave in place for 3 consecutive weeks, then remove for 1 week. Dispense: 3 Each; Refill: 4 Patient denies self or family history of thromboembolic disease or thrombophilia, migraine headache. I counseled patient regarding use of nuvraing. There are combined oral contraceptive, which has both estrogen and progestin, and there is progestin only oral contraceptive. With typical use, 9 out 100 women get in the first year and with perfect use 0.3 out of 100 women get in thefirst year according to ACOG Practice Bulletin. Risks include but not limited to increase risk of thromboembolic disease, headache, weight gain, mood lability, and breast cancer. Decrease risks of ovarian cancer, colon cancer, and endometrial cancer. Oral contraceptive may decrease milk supply. Alternatives reviewed include patch, ring, Depo-Provera, Nexplanon, and IUD. Advise using condoms for STDs prevention. Counseled patient regarding use of NuvaRing, which is a combined contraceptives, which has both estrogen and progestin. With typical use, 9 out 100 women get in the first year and with perfect use 0.3 out of 100 women get in the first year according to ACOG Practice Bulletin. Risksinclude but not limited to increase risk of thromboembolic disease, headache, weight gain, and mood lability, vaginal discharge, vaginal irritation. Alternatives reviewed include patch, oral, ring, Depo-Provera, Nexplanon, and IUD. Advise using condoms for STDs prevention. Patient denies self or family history of thromboembolic disease or thrombophilia, migraine headache. Plan of care, desired health behaviors, goals, Ddx, and any prescribed medications were discussed with the patient. I spent 15 minute(s) conducting this Telehealth encounter with the patient. Education resources and self- management tools were provided is the AVS which is accessible through [employer]. Patient/guardian/family verbalized understanding and agrees to the plan of care. Barriers to care:None. Ability to manage care: Good. If applicable, the [place] database was accessed to review any controlled substance prescription claims data. If the patient is taking prescribed medications, the [employer] prescription claims data in [employer] was reviewed to assess patient compliance with the medication treatment plan. COVID-19 precautions given including frequent handwashing, social distancing, cleaning and disinfecting, indications for testing, etc. After visit summary (AVS ) documentation will be available through [employer] for this encounter. Cristin Rosa PA-C 01/26/2020 2:21 PM documented in this encounter Plan of Treatment Health Maintenance Due Date Last Done Comments VARICELLA VACCINES (1 of 2 - 01/21/2000 2-dose childhood series) MENINGOCOCCAL B VACCINES (1 of 2 - 2009 Risk Bexsero 2-dose series) WELL CARE VISIT: 12-21 YEARS 2011 (yearly) CHLAMYDIA SCREENING 2015 HPV VACCINES (2 - Female 3-dose 02/28/2017 01/31/2017 series) INFLUENZA VACCINE (#1) 2019 PAP SMEAR 01/21/2020 DTaP,Tdap,and Td Vaccines (2 - 01/31/2027 01/31/2017 Tdap) PNEUMOCOCCAL 0-64 YEARS COMBINED Completed 02/09/2018 SERIES MENINGOCOCCAL VACCINE Aged Out No longer eligible based on patient's age to complete this topic documented as of this encounter Results Not on filedocumented in this encounter Visit Diagnoses Diagnosis Dysmenorrhea - Primary Counseling for initiation of contr ol method General counseling for initiation of oth er contraceptive measures documented in this encounter documented as of this encounter
--- OUTSIDE RECORDS SUMMARY | 2020-03-27 20:36 | XMS REPORT | Summary of Care ---
:2000 Author Organization [facility] Address [address] [place] [id number] Care Team Providers Name Role Phone Ana Burnett Primary Care Provider Reason for Referral Radiology Services (Routine) Status Reason Specialty Diagnoses / Referred By Referred To Procedures Contact Contact New Request Diagnostic Diagnoses Dysmenorrhea Nesha Willson, Radiology Procedures US PELVIS COMPLETE WITH TRANSVAGINAL [address] [place] [address] [facility] [address] [place] [address] Reason for Visit Reason Comments Menstrual Problem Encounter Details Date Type Department Care Team Description 03/08/2020 Telemedicine Visit [facility] Nesha Willson, Dysmenorrhea Healthcare- (Primary Dx) [address] Vargas [address] [place] [phone] Allergies Active Allergy Reactions Severity Noted Date Comments Doxycycline Nausea and/or 12/07/2019 Vomiting Sulfamethoprim Ds Hives 12/07/2019 Azithromycin Other - See comments 11/19/2017 Tachyca rdia and numbness of low er extremities Piperacillin-Tazobactam Hives 01/06/2020 documented as of this encounter (statuses as of 03/08/2020) Medications Medication Sig Dispensed Refills Start End Date Status Date MONTELUKAST SODIUM Take 10 mg by 0 Active (SINGULAIR ORAL) mouth daily. CETIRIZINE HCL Take 10 mg by 0 A ctive (ZYRTEC ORAL) mouth daily. FLUOXETINE HCL Take 10 mg by 0 A ctive (PROZAC ORAL) mouth at bedtime. Mometasone-Formote Inhale 1 Puff 2 13 g 2 Active rol (DULERA) 100-5 (two) times 8 mcg/actuation daily. inhaler buPROPion XL Take 300 mg by 0 Ac tive (WELLBUTRIN XL) mouth daily. 300 mg 24 hr tablet albuterol 2.5 mg Inhale 3 mL 180 mL 0 A ctive /3 mL (0.083 %) every 4 (four) 8 nebulizer solution hours as needed for Wheezing or Shortness of Breath. albuterol 90 Inhale 2 Puffs 8.5 g 0 Ac tive mcg/actuation every 4 (four) 0 inhalerIndications hours as needed : Exacerbation of for Wheezing or asthma, Shortness of unspecified asthma Breath. severity, unspecified whether persistent fluticasone Inhale 1 Puff 2 12 g 0 Ac tive propionate (two) times 0 (FLOVENT HFA) 110 daily. mcg/actuation inhalerIndications : Exacerbation of asthma, unspecified asthma severity, unspecified whether persistent benzonatate 200 mg Take 1 capsule 21 capsule 0 Active capsuleIndications by mouth 3 0 : Asthma with (three) times acute daily as needed exacerbation, for Cough. unspecified asthma severity, unspecified whether persistent albuterol 2.5 mg Inhale 3 mL 20 mL 0 A ctive /3 mL (0.083 %) every 4 (four) 0 nebulizer hours. May also solutionIndication nebulize one s: Asthma with extra every 6 acute hours. exacerbation, unspecified asthma severity, unspecified whether persistent propranolol HCl Take by mouth. 0 Active (PROPRANOLOL ORAL) GABAPENTIN ORAL Take by mouth. 0 Active NUVARING Insert 1 Each 3 Each 4 Active 0.12-0.015 mg/24 into vagina 0 hr vaginal once every insertIndications: month. Insert Dysmenorrhea, vaginally and Counseling for leave in place initiation of for 3 control consecutive method weeks, then remove for 1 week. mefenamic acid 250 Take 1 capsule 12 capsule 1 Active mg by mouth every 0 capsuleIndications 6 (six) hours : Dysmenorrhea as needed for Pain (scale 4-6) or Pain (scale 7-10). predniSONE 20 mg Take 1 tablet 4 tablet 0 03/08/20 Discontinued tablet by mouth daily. 8 20 (Pat ient Reported) predniSONE 10 mg Take 5 tablets 45 tablet 0 03/08/20 Discontinued tablet by mouth daily. 8 20 (Pat ient 5 tabs once Reported ) daily for 3 days 4 tabs once daily for 3 days 3 tabs once daily for 3 days 2 tabs once daily for 3 days 1 tab once daily for 3 days mupirocin 2 % Apply to 22 g 0 03/08/20 Discon tinued ointmentIndication area(s) 3 0 20 ( Patient s: Facial abscess, (three) times Reported) Facial cellulitis daily. predniSONE 50 mg Take 1 tablet 5 tablet 0 03/08/20 Discontinued tabletIndications: by mouth daily. 0 20 (Patient Asthma with acute Re ported) exacerbation, unspecified asthma severity, unspecified whether persistent albuterol 90 Inhale 2 Puffs 8.5 g 0 03/08/20 Di scontinued mcg/actuation every 4 (four) 0 20 ( Duplicate) inhalerIndications hours as needed : Asthma with for Wheezing or acute Shortness of exacerbation, Breath. unspecified asthma severity, unspecified whether persistent predniSONE 20 mg Take 3 tablets 15 tablet 0 03/08/20 Discontinued tabletIndications: by mouth every 0 20 (Patient Moderate morning. Reported) persistent asthma with exacerbation ondansetron 4 mg Take 1 tablet 10 tablet 0 03/08/20 Discontinued disintegrating by mouth every 0 20 (Patient tabletIndications: 12 (twelve) Reported) Moderate hours as needed persistent asthma for Nausea and with exacerbation Vomiting (N/V). documented as of this encounter (statuses as of 03/08/2020) Active Problems Problem Noted Date Asthma attack 02/08/2018 Moderate asthma with exacerbation 11/19/2017 Obesity (BMI 30-39.9) 11/19/2017 Asthma exacerbation 11/19/2017 Sinus tachycardia 11/19/2017 documented as of this encounter (statuses as of 03/08/2020) Immunizations Name Administration Dates Next Due DTAP [...] Signs Not on filedocumented in this encounter Progress Notes Nesha Willson MD - 03/08/2020 1:00 PM CDT HPI: Verbal consent obtained from Patient: Adelaide Trinidad due to COVID 19 pandemic telehealth serviceswas provided below. Communication with patient was conducted via Video Call. Location of Patient: Home Location of Provider: Clinic Date of Service: 03/08/2020 CC: Menstrual problems HPI: Adelaide Trinidad is a 20 year old female who presents with ongoing problems with her periods. She was seen in december by my colleague, Cristin Rosa and restarted on NuvaRing to help control her painful cycles. She removed the ring on 02/25 and started her period on 03/03 but reports the bleeding pattern was " weird and different" with her bleeding intermittently and the blood was very dark yesterday. This got her worried hence her calling for an appointment. She also reports that her period was still quite painful but mostly on the right side( felt like an ovarian cyst) and that OTC NSAIDs have never been helpful. She tends to get mood swings, lower abdominal pain/cramps 2 weeks before her period.The pain peaks with her periods when she also get nauseated. Her periods are moderate in flow and lasts 5 days. The pain has been ongoing since Menarche at age 12. The Nuvaring she removed was the Ist one for over 2- 3 months when she had run out of her prescription from her previous doctor She reports that she has tried other forms of BC in the past including Nexplanon (although she was amenorrheic on it, it exacerbated her depression big time), patches and pill- NuvaRing seems to agree better with her. She is wondering if she has endometriosis. She has been in a stable relationship for over 2 years, denies painful sexual intercourse, denies abnormal vaginal discharge, postcoital or intramenstrual bleeding.She also denies associated urinary or GI symptoms. Past Medical History: Diagnosis Date Asthma Depression Left wrist fracture MEDICATIONS: Outpatient Medications Marked as Taking for the 03/08/20 encounter (Telemedicine Visit) with Nesha Willson MD Medication Sig Dispense Refill mefenamic acid 250 mg capsule Take 1 capsule by mouth every 6 (six) hours as needed for Pain (scale 4-6) or Pain (scale 7-10). 12 capsule 1 NUVARING 0.12-0.015 mg/24 hr vaginal insert Insert 1 Each into vagina once every month. Insert vaginally and leave in place for 3 consecutive weeks, then remove for 1 week. 3 Each 4 buPROPion XL (WELLBUTRIN XL) 300 mg 24 hr tablet Take 300 mg by mouth daily. Review of Systems Constitutional: Denies Fever, chills Cardiovascular: Denies chest pain or palpitations Respiratory: Denies shortness of breath Gastrointestinal: Denies nausea, vomiting, diarrhea or constipation Genitourinary: Denies dysuria, increased frequency or urgency Neuro: Denies headaches Psych: Denies depression or anxiety Vital Signs There were no vitals taken for this visit. TELEHEALTH EXAM Constitutional: Alert and in no distress Respiratory: Breathing comfortably Neuro: Answering questions appropriately Psych: Normal Affect Physical Exam Discussion in lieu of physical examination. ASSESSMENT/ PLAN Adelaide Trinidad is a 20 year old female with PMH as above presenting with: Dysmenorrhea (primary encounter diagnosis) Comment: We reviewed the possible etiologies for dysmenorrhea including endometriosis. I reviewed the pathophysiology of endometriosis with her, explained that it is caused by abnormal implantation of the endometrium, lining of the uterus, outside the uterus and yes, her symptoms are concerning for it. We discussed that although the definitive diagnosis for endometriosis is done via laparoscopy withbiopsies, treatment can be initiated empirically based on suggestive clinical symptoms and that the Ist line is medical treatment which is directed at pain control with NSAIDs or hormonal manipulation: options include BC, GRnH analogues ( Lupron) or GRnH antiagonist (ORILISSA). At this stage I will recommend that we try extended cycle control method- which will include not having a week break between her NuvaRing for every 3 months (patient reports that she try this a while ago for just a month and that although she didn't have a period she started having a fever with nausea and so she abandoned the method attributing her symptoms to the NuvaRing). I explained that the NuvaRing was unlikely to be the cause of her symptoms at that time and that she might have had an infection from another source. I explained that with the extended cycle method we are trying to suppress her ovaries and hopefully with the resultant amenorrhea she may have little to no pain with her cycles. She is willing to try the method again. I want her to try it for at least 3 months before she comes in for a follow up- she agrees with plan I will also get a pelvic sonogram to r/o other pelvic pathologies and call her with the results before scheduling her next appointment. I reassured her that her current bleeding pattern this cycle is not usual with initiation of BC but I want her to get a UPT before inserting the next ring. I have also prescribed a different NSAID class for her to use in conjunction with her BC for the pain as needed. Plan: mefenamic acid 250 mg capsule, US PELVIS COMPLETE WITH TRANSVAGINAL Plan Plan of care, desired health behaviors, goals, Ddx, and any prescribed medications were discussed with the patient. I spent 33 minute(s) conducting this Telehealth encounter with the patient. Education resources and self- management tools were provided is the AVS which is accessible through [employer]. Patient/guardian/family verbalized understanding and agrees to the plan of care. Barriers to care:None. Ability to manage care: Good. COVID-19 precautions given including frequent handwashing, social distancing, cleaning and disinfecting, indications for testing, etc. Follow-up: Return as scheduled. Follow-up sooner if any problems or concerns. Nesha Willson MD 03/08/2020 2:36 PM documented in this encounter Plan of Treatment Date Type Specialty Care Team Description 04/26/2020 Office Visit Obstetrics & Gynecology Cristin Rosa PA-C [address] [place] [phone] Name Type Priority Associated Diagnoses Order S chedule US PELVIS COMPLETE WITH IMAGING Routine Dysmenorrhea Expe cted: 03/08/2020, TRANSVAGINAL Expires: 2020 Health Maintenance Due Date Last Done Comments VARICELLA VACCINES (1 of 2 - 01/21/2000 2-dose childhood series) MENINGOCOCCAL B VACCINES (1 of 2 - 2009 Risk Bexsero 2-dose series) WELL CARE VISIT: 12-21 YEARS 2011 (yearly) CHLAMYDIA SCREENING 2015 HPV VACCINES (2 - Female 3-dose 02/28/2017 01/31/2017 series) PAP SMEAR 01/21/2020 INFLUENZA VACCINE (Season Ended) 2020 DTaP,Tdap,and Td Vaccines (2 - 01/31/2027 01/31/2017 Tdap) PNEUMOCOCCAL 0-64 YEARS COMBINED Completed 02/09/2018 SERIES MENINGOCOCCAL VACCINE Aged Out No longer eligible based on patient's age to complete this topic documented as of this encounter Results Not on filedocumented in this encounter Visit Diagnoses Diagnosis Dysmenorrhea - Primary documented in this encounter documented as of this encounter
--- OUTSIDE RECORDS SUMMARY | 2020-03-27 20:36 | XMS REPORT | Summary of Care ---
:1999 Author Organization [facility] Address [address] [place] [id number] Care Team Providers Name Role Phone Ana Burnett Primary Care Provider Reason for Referral Radiology Services (Routine) Status Reason Specialty Diagnoses / Referred By Referred To Procedures Contact Contact Closed Diagnostic Diagnoses Dysmenorrhea Nesha Willson, Radiology Procedures US PELVIS COMPLETE WITH TRANSVAGINESTEBAN MCCABE [address] [place] [address] [address]. [address] [place] [address] Reason for Visit Radiology Services (Routine) Status Reason Specialty Diagnoses / Referred By Referred To Procedures Contact Contact Closed Diagnostic Diagnoses Dysmenorrhea Nesha Willson, Radiology Procedures US PELVIS COMPLETE WITH CURTIS MCCABE [address] [place] [address] [address]. [address] [place] [address] Encounter Details Date Type Department Care Team Description 03/14/2020 Hospital Encounter Critical access hospital Nafisa Willson MD Arrived [facility] [address] [place] [address] [place] [address] Dr [address] [place] [address] [place], [place] [phone] Allergies Active Allergy Reactions Severity Noted Date Comments Doxycycline Nausea and/or 12/07/2019 Vomiting Sulfamethoprim Ds Hives 12/07/2019 Azithromycin Other - See comments 11/19/2017 Tachyca rdia and numbness of low er extremities Piperacillin-Tazobactam Hives 01/06/2020 documented as of this encounter (statuses as of 03/15/2020) Medications Medication Sig Dispensed Refills Start Date End Date Status MONTELUKAST SODIUM Take 10 mg by mouth 0 Active (SINGULAIR ORAL) daily. CETIRIZINE HCL Take 10 mg by mouth 0 Active (ZYRTEC ORAL) daily. FLUOXETINE HCL Take 10 mg by mouth 0 Active (PROZAC ORAL) at bedtime. Mometasone-Formotero Inhale 1 Puff 2 13 g 2 11/19/2017 Active l (DULERA) 100-5 (two) times daily. mcg/actuation inhaler buPROPion XL Take 300 mg by 0 Ac tive (WELLBUTRIN XL) 300 mouth daily. mg 24 hr tablet albuterol 2.5 mg /3 Inhale 3 mL every 4 180 mL 0 02/09/2018 Active mL (0.083 %) (four) hours as nebulizer solution needed for Wheezing or Shortness of Breath. albuterol 90 Inhale 2 Puffs 8.5 g 0 12/03/2019 A ctive mcg/actuation every 4 (four) inhalerIndications: hours as needed for Exacerbation of Wheezing or asthma, unspecified Shortness of asthma [...] 2.5 mg /3 Inhale 3 mL every 4 20 mL 0 12/14/2019 Active mL (0.083 %) (four) hours. May nebulizer also nebulize one solutionIndications: extra every 6 Asthma with acute hours. exacerbation, unspecified asthma severity, unspecified whether persistent propranolol HCl Take by mouth. 0 Active (PROPRANOLOL ORAL) GABAPENTIN ORAL Take by mouth. 0 Active NUVARING 0.12-0.015 Insert 1 Each into 3 Each 4 01/26/2020 Active mg/24 hr vaginal vagina once every insertIndications: month. Insert Dysmenorrhea, vaginally and leave Counseling for in place for 3 initiation of consecutive weeks, control method then remove for 1 week. mefenamic acid 250 Take 1 capsule by 12 capsule 1 03/08/2020 Active mg mouth every 6 (six) capsuleIndications: hours as needed for Dysmenorrhea Pain (scale 4-6) or Pain (scale 7-10). documented as of this encounter (statuses as of 03/15/2020) Active Problems Problem Noted Date Asthma attack 02/08/2018 Moderate asthma with exacerbation 11/19/2017 Obesity (BMI 30-39.9) 11/19/2017 Asthma exacerbation 11/19/2017 Sinus tachycardia 11/19/2017 documented as of this encounter (statuses as of 03/15/2020) Immunizations Name Administration Dates Next Due DTAP [...] filedocumented in this encounter Plan of Treatment Date Type Specialty Care Team Description 04/26/2020 Office Visit Obstetrics & Gynecology Cristin Rosa PA-C [facility] [address] [phone] 06/08/2020 Telemedicine Visit Obstetrics & Gynecology Nesha Willson MD [address] [place] [address] [phone] Health Maintenance Due Date Last Done Comments VARICELLA VACCINES ( of 2 - 01/21/2000 2-dose childhood series) [...] Name Priority Date/Time Associated Diagnosis Comme nts US PELVIS COMPLETE Routine 03/14/2020 10:57 Dysmenorrhea Resul ts for this WITH TRANSVAGINAL AM CDT procedure are in the results section. documented in this encounter Results US PELVIS COMPLETE WITH TRANSVAGINAL (03/14/2020 10:57 AM CDT) Specimen Impressions Performed At PACS/VR/DOSE Normal pelvic ultrasound. Preliminary Report Dictated by Resident: Dominick Mcallister I, Alex Meadows MD., have reviewed this study an d agree with the above report. Narrative Performed At PACS/VR/DOSE EXAM: PELVIC ULTRASOUND, TRANSABDOMINAL AND TRANSVAGINAL HISTORY: Pelvic pain/dysmenorrhoea COMPARISON: None FINDINGS: Last menstrual period: 03/03/2020. OB history: A1 UTERUS: The uterus measures 7.6 x 3 x 3.4 cm (40.3 mL) . The endometrium is homogeneous and measures 0.4 cm in thick ness. A 0.4 x 0.5 cm well-circumscribed anechoic structure with posterior a coustic enhancement is seen about the cervix, in keeping wit h a nabothian cyst. OVARIES: The right ovary measures 3.1 x 2.3 x 1.6 cm ( 6 mL). The left ovary measures 3.2 x 2.5 x 1.7 cm (7.3 mL). A few scattered subcentimeter bilateral follicles are seen in both ova prieto. No adnexal masses. No free fluid. Procedure Note [facility], Radiant Results Inft User - 2019 11:25 AM CDT EXAM: PELVIC ULTRASOUND, TRANSABDOMINAL AND TRANSVAGINAL HISTORY: Pelvic pain/dysmenorrhoea COMPARISON: None FINDINGS: Last menstrual period: 03/03/2020. OB history: A1 UTERUS: The uterus measures 7.6 x 3 x 3. 4 cm (40.3 mL). The endometrium is homogeneous and measures 0.4 cm in thick ness. A 0.4 x 0.5 cm well-circumscribed anechoic structure wi th posterior acoustic enhancement is seen about the cervix, in keeping wit h a nabothian cyst. OVARIES: The right ovary measures 3.1 x 2.3 x 1.6 cm (6 mL). The left ovary measures 3.2 x 2.5 x 1.7 cm (7.3 mL). A few scattered subcentimeter bilateral follicles are seen in both ova prieto. No adnexal masses. No free fluid. IMPRESSION Normal pelvic ultrasound. Preliminary Report Dictated by Resident: Dominick Mcallister I, Alex Meadows MD., have reviewed this study and agree with the above report. Performing Organization Address [facility] Phone Number [facility]DOSE documented in this encounter Visit Diagnoses Diagnosis Dysmenorrhea documented in this encounter documented as of this encounter
--- OUTSIDE RECORDS SUMMARY | 2020-03-27 20:36 | XMS REPORT | Summary of Care ---
:2000 Author Organization [facility] Address [address] [place] [id number] Care Team Providers Name Role Phone Ana Burnett Primary Care Provider Reason for Referral Radiology Services (STAT) Status Reason Specialty Diagnoses / Referred By Referred To Procedures Contact Contact New Request Diagnostic Diagnoses Wheezing Antonino Brink, Radiology Procedures XR CHEST 2 VW DO [address] [facility]. 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 [id number] Allergies Active Allergy Reactions Severity Noted Date [...] Active (SINGULAIR ORAL) mouth daily. CETIRIZINE HCL (ZYRTEC Take 10 mg by 0 Active ORAL) mouth daily. FLUOXETINE HCL (PROZAC Take 10 mg by 0 Active ORAL) mouth at bedtime. Mometasone-Formoterol Inhale 1 Puff 2 13 g 2 11/19/2017 Active (DULERA) 100-5 (two) times mcg/actuation inhaler daily. predniSONE 20 mg Take 1 tablet by 4 tablet 0 11/19/2017 Active tablet mouth daily. buPROPion XL Take 300 mg by 0 Ac tive (WELLBUTRIN XL) 300 mg mouth daily. 24 hr tablet predniSONE 10 mg Take 5 tablets by 45 tablet 0 02/09/2018 Active tablet mouth daily. 5 tabs once daily for 3 days 4 tabs once daily for 3 days 3 tabs once daily for 3 days 2 tabs once daily for 3 days 1 tab once daily for 3 days albuterol 2.5 mg /3 mL Inhale 3 mL every 180 mL 0 8 Active (0.083 %) nebulizer 4 (four) hours as solution needed for Wheezing or Shortness of Breath. albuterol 90 Inhale 2 Puffs 8.5 g 0 12/03/2019 A ctive mcg/actuation every 4 (four) inhalerIndications: hours as needed Exacerbation of for Wheezing or asthma, unspecified Shortness of asthma severity, Breath. unspecified whether persistent fluticasone propionate Inhale 1 Puff 2 12 g 0 12/03/2019 Active (FLOVENT HFA) 110 (two) times mcg/actuation daily. inhalerIndications: Exacerbation of asthma, unspecified asthma severity, unspecified whether persistent mupirocin 2 % Apply to area(s) 22 g 0 12/07/2019 Active ointmentIndications: 3 (three) times Facial abscess, Facial daily. cellulitis predniSONE 50 mg Take 1 tablet by 5 tablet 0 12/14/2019 Active tabletIndications: mouth daily. Asthma with acute exacerbation, unspecified asthma severity, unspecified whether persistent benzonatate 200 mg Take 1 capsule by 21 capsule 0 12/14/2019 Active capsuleIndications: mouth 3 (three) Asthma with acute times daily as exacerbation, needed for Cough. unspecified asthma severity, unspecified whether persistent albuterol 2.5 mg /3 mL Inhale 3 mL every 20 mL 0 0 Active (0.083 %) nebulizer 4 (four) hours. solutionIndications: May also nebulize Asthma with acute one extra every 6 exacerbation, hours. unspecified asthma severity, unspecified whether persistent albuterol [...] Nausea asthma with and Vomiting exacerbation (N/V). documented as of this encounter (statuses [...] Sign Reading Time Taken Comments Blood Pressure 120/56 01/06/2020 5:15 PM CDT Pulse 96 01/06/2020 5:15 PM CDT Temperature 36.9 C (98.4 F) 01/06/2020 4:14 PM CDT Respiratory Rate 18 01/06/2020 5:15 PM CDT Oxygen Saturation 99% 01/06/2020 5:15 PM CDT Inhaled Oxygen Concentration - - Weight 86.2 kg (190 lb) 01/06/2020 12:46 PM CDT Height - - Body Mass Index - - documented in this encounter Discharge Instructions EvelynWolf Ana, KIARA - 01/06/2020DIAGNOSIS 1. Asthma Exacerbation NO LIFE-THREATENING FINDINGS ON TODAY'S EXAM. RECOMMEND FOLLOW-UP WITH A PRIMARY CARE PROVIDER OR SPECIALIST IN 2-5 DAYS, ESPECIALLY IF NO IMPROVEMENT IN SYMPTOMS. MAY FOLLOW-UP WITH A PROVIDER OF YOUR CHOICE, SUCH : 1. A PHYSICIAN OF YOUR CHOICE 2. [address] [place] [address], [address] [place] [address]; [phone] 3. [facility], [address] [place] [address]; [phone] OR, IF YOU WISH TO FOLLOW-UP WITHIN THE [facility], MAY TRY THESE OPTIONS (CLINIC APPOINTMENTS AVAILABLE ON [id number] BASIS): 1. SCHEDULE AN APPOINTMENT ONLINE AT [email or web address] 2. OR CALL THE [facility] AT OR 3. OR CALL YOUR [facility] PHYSICIAN'S OFFICE DIRECTLY IF YOU ARE ALREADY AN ESTABLISHED [facility] PATIENT. RETURN TO ER FOR WORSENING OF SYMPTOMS. AttachmentsThe following attachments cannot be sent through Care Everywhere. Asthma Triggers, Understanding (Surinamese)Asthma, Understanding (Surinamese) Prednisone tablets (Surinamese)documented in this encounter Plan of Treatment Health [...] Name Priority Date/Time Associated Diagnosis Comme nts POCT TEST AMALIA 01/06/2020 2:00 PM Wheezing R esults for this CDT procedure are i n the results section. XR CHEST 2 VW STAT 01/06/2020 1:28 PM Wheezing Results for this CDT procedure are i n the results section. documented in this encounter Results POCT Test, Urine (01/06/2020 2:00 PM CDT) Pathologist Sig nature POCT PREG negative On board controls acceptable present with C Line POCT PREG LOT # [id number] POCT PREG TEST DATE 2021-05-27 Specimen Urine - URINE, CLEAN CATCH XR CHEST 2 VW (01/06/2020 1:28 PM CDT) Specimen Narrative Performed At HISTORY: Wheezing. PACS/VR/DOSE TECHNIQUE: PA and lateral views of the c hest are obtained. Comparison is made with 12/14/2019 study. FINDINGS: No acute pneumonia detected. No pneumothorax or pleural effusion or pulmonary congestion. Cardiomediastin al contour appears normal. Note made of mild thoracolumbar scoliosis. CONCLUSIONS: No signs of acute cardiopulmonary disease . Procedure Note [facility], Radiant Results Inft User - 2019 1:38 PM CDT HISTORY: Wheezing. TECHNIQUE: PA and lateral views of the c hest are obtained. Comparison is made with 12/14/2019 study. FINDINGS: No acute pneumonia detected. N o pneumothorax or pleural effusion or pulmonary congestion. Cardiomediastin al contour appears normal. Note made of mild thoracolumbar scoliosis. CONCLUSIONS: No signs of acute cardiopul monary disease. Performing Organization Address City/State/Zipcode Phone Number PACS/VR/DOSE documented in this encounter Visit Diagnoses Diagnosis Moderate persistent asthma with exacerba tion - Primary Unspecified asthma, with exacerbation Wheezing documented in this encounter Administered Medications Medication Order MAR Action Action Date Dose Rate Site ipratropium-albuterol (DUONEB) 0.5 Given 01/06/2020 1:02 PM CDT 3 mL mg-3 mg(2.5 mg base)/3 mL nebulizer solution 3 mL 3 mL, Inhalation, ONCE, 1 dose, Sat01/06/20 at 1400, Routine ipratropium-albuterol (DUONEB) 0.5 mg-3 mg(2.5 Given 0 01/06/2020 2:02 PM CDT 3 mL mg base)/3 mL nebulizer solution 3 mL 3 mL, Inhalation, ONCE, 1 dose, Sat01/06/20 at 1500, Routine methylprednisolone sod succ (SOLU-MEDROL) Given 01/06/2020 4:07 PM CDT 60 mg injection 60 mg 60 mg, IV Piggyback, ONCE, 1 dose, Sat01/06/20 at 1700, STAT NaCl 0.9% (NS) bolus infusion New Bag 01/06/2020 4:08 PM CDT 1,000 mL 999 mL/hr 1,000 mL at 999 mL/hr, 1,000 mL, IV Infusion, ONCE, 1 dose, Sat01/06/20 at 1600, AMALIA ondansetron (ZOFRAN (PF)) injection 4 mg Given 01/06/2020 4:08 PM CDT 4 mg 4 mg, Slow IV Push, ONCE, 1 dose, Sat01/06/20 at 1700, AMALIA ondansetron (ZOFRAN-ODT) disintegrating tablet Given 0 01/06/2020 2:41 PM CDT 4 mg 4 mg 4 mg, Oral, ONCE, 1 dose, Sat01/06/20 at 1545, Routine predniSONE (DELTASONE) tablet 60 mg Given 01/06/2020 3:15 PM CDT 60 mg 60 mg, Oral, ONCE, 1 dose, Sat01/06/20 at 1545, AMALIA documented in this encounter documented as of this encounter
[2020-03-27] MEDS ORDERED: IPRATROPIUM BROM 0.5MG/2.5ML ONE (22:09)
[2020-03-27] MEDS ORDERED: ALBUTEROL 2.5 MG/3 ML NEB SOL ONE ×2 (22:09→23:25)
[2020-03-27 22:13] LABS: Urine Blood NEGATIVE (NEG); Urine Glucose NEGATIVE (NEG); Urine Protein NEGATIVE (NEG); Urine Specific Gravity 1.025 (1.005-1.030)
[2020-03-27] MEDS ORDERED: HYDROCODONE/APAP 5/325 MG TAB ONE (22:23)
[2020-03-27] MEDS ORDERED: METHYLPREDNISOLONE 125 MG INJ ONE (23:24)
[2020-03-27] MEDS ORDERED: MORPHINE 2 MG/ML SYR ONE (23:24)
[2020-03-27] MEDS ORDERED: ONDANSETRON 4 MG/2 ML VIAL ONE (23:25)
[2020-03-28 00:26] VITALS: TEMP 98.5
[2020-03-28 00:31] VITALS: BP 120/72; O2SAT 100
--- NOTE | 2020-03-28 08:32 | RAD REPORT ---
EXAM DESCRIPTION: RAD - Chest Single View - 03/27/2020 10:10 pm CLINICAL HISTORY: CHEST PAIN COMPARISON: Portable December 2019 TECHNIQUE: AP portable chest image was obtained 03/27/2020 10:10 pm . FINDINGS: Lungs are clear. Heart and vasculature are normal. No measurable pleural effusion and no p neumothorax. No acute bony abnormality seen. No acute aortic findings suspected. IMPRESSION: No acute cardiopulmonary process. No significant interval change.
--- NOTE | 2020-03-28 19:30 | EDPHYS ---
Physician Documentation [facility] Name: Adelaide Trinidad Age: 20 yrs Sex: Female : 2000 Arrival Date: 03/27/2020 Time: 20:34 Bed 20 Private MD: ED Physician Adolfo Montero HPI: 03/27 21:54 This 20 yrs old Female presents to ER via Ambulatory with complaints of Chest pkl Pain. 21:54 The patient or guardian reports chest pain that is located primarily in the substernal pkl area. The pain radiates to both arms. Associated signs and symptoms: Pertinent positives: shortness of breath. The chest pain is described as dull. Patient has H/O of asthma. 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 - Social history:: Smoking status: Patient denies any tobacco usage or history of. ROS: 21:54 Eyes: Negative for injury, pain, redness, and discharge, ENT: Negative for injury, pkl pain, and discharge, Neck: Negative for injury, pain, and swelling, Cardiovascular: Negative for chest pain, palpitations, and edema. 21:54 Respiratory: Positive for shortness of breath. 21:54 Abdomen/GI: Negative for abdominal pain, nausea, vomiting, and diarrhea. 21:54 Back: Negative for acute changes. 21:54 : Negative for urinary symptoms. 21:54 MS/extremity: Negative for acute changes. 21:54 Skin: Negative for rash. 21:54 Neuro: Negative for altered mental status. Exam: 21:54 Head/Face: Normocephalic, atraumatic. Eyes: Pupils equal round and reactive to light, pkl extra-ocular motions intact. Lids and lashes normal. Conjunctiva and sclera are non-icteric and not injected. Cornea within normal limits. Periorbital areas with no swelling, redness, or edema. ENT: Nares patent. No nasal discharge, no septal abnormalities noted. Tympanic membranes are normal and external auditory canals are clear. Oropharynx with no redness, swelling, or masses, exudates, or evidence of obstruction, uvula midline. Mucous membranes moist. Neck: Trachea midline, no thyromegaly or masses palpated, and no cervical lymphadenopathy. Supple, full range of motion without nuchal rigidity, or vertebral point tenderness. No Meningismus. Chest/axilla: Normal chest wall appearance and motion. Nontender with no deformity. No lesions are appreciated. Cardiovascular: Regular rate and rhythm with a normal S1 and S2. No gallops, murmurs, or rubs. Normal PMI, no JVD. No pulse deficits. 21:54 Respiratory: the patient does not display signs of respiratory distress, Respirations: normal, Breath sounds: bronchial sounds, that are mild, are scattered. 21:54 Abdomen/GI: Exam negative for acute changes. 21:54 Back: Exam negative for acute changes. 21:54 : Exam negative for acute changes. 21:54 Musculoskeletal/extremity: Exam is negative for acute changes. 21:54 Skin: Exam negative for rash. 21:54 Neuro: Orientation: is normal, Mentation: is normal, Cranial nerves: grossly normal, Motor: is normal. Vital Signs: 20:45 BP 126 / 79; Pulse 96; Resp 20 S; Temp 98.5(TE); Pulse Ox 100% on R/A; Weight 86.18 kg ca1 (R); Height 4 ft. 11 in. (149.86 cm) (R); Pain 10/10; 21:30 BP 119 / 78; Pulse 90; Resp 17; Pulse Ox 98% ; Pain 10/10; rr5 22:35 BP 128 / 73; Pulse 110; Resp 19; Pulse Ox 99% ; Pain 8/10; rr5 23:10 BP 120 / 72; Pulse 85; Resp 19; Pulse Ox 100% on R/A; Pain 8/10; rr5 06 00:00 BP 115 / 70; Pulse 99; Resp 19; Pulse Ox 100% ; rr5 03/27 20:45 Body Mass Index 38.37 (86.18 kg, 149.86 cm) ca1 MDM: 03/27 21:30 Patient medically screened. pk 23:46 Data reviewed: vital signs, nurses notes, lab test result(s), EKG, radiologic studies. [facility] ED course: Patient feeling better. Advised to follow up with PCP in 2 to 3 days. Patient understood instructions. 03/27 21:52 Order name: D-Dimer; Complete Time: 22:46 pkl 03/27 22:00 Order name: Urine Dipstick--Ancillary (enter results); Complete Time: 22:46 mt 03/27 22:50 Interpretation: Abnormal. pk 03/27 21:52 Order name: XRAY CXR (1 view) pk 03/27 22:00 Order name: Urine --Ancillary (enter results); Complete Time: 22:46 mt Administered Medications: 22:14 Drug: Albuterol - atroVENT (3:1) (2.5 mg - 0.5 mg) 3 ml Route: Nebulizer; rr5 23:00 Follow up: Response: No adverse reaction rr5 22:18 Drug: [place] 5 mg-325 mg 1 tabs {Note: rass 0.} Route: PO; rr5 23:10 Follow up: Response: No adverse reaction; Pain is decreased; RASS: Alert and Calm (0) rr5 23:15 Drug: SOLU-Medrol 125 mg Route: IVP; Site: right forearm; rr5 03/28 00:00 Follow up: Response: No adverse reaction rr5 03/27 23:17 Drug: Zofran (Ondansetron) 4 mg Route: IVP; Site: right forearm; rr5 03/28 00:05 Follow up: Response: No adverse reaction rr5 03/27 23:19 Drug: morphine 2 mg {Note: rass 0.} Route: IVP; Site: right forearm; rr5 03/28 00:05 Follow up: Response: No adverse reaction; Pain is decreased; RASS: Alert and Calm (0) rr5 03/27 23:20 Drug: Albuterol 2.5 mg Route: Inhalation; rr5 03/28 00:00 Follow up: Response: No adverse reaction rr5 Disposition: 03/27/20 23:52 Discharged to Home. Impression: Chest pain. Asthma. - Condition is Stable. - Prescriptions for Ultram 50 mg Oral Tablet - take 1 tablet by ORAL route every 8 hours As needed; 12 tablet. - Medication Reconciliation Form, Thank You Letter, Antibiotic Education, Prescription Opioid Use form. - Follow up: Private Physician; When: 2 - 3 days; Reason: Re-evaluation by your physician. - Problem is new. - Symptoms have improved. Signatures: Dispatcher [employer] EDMS Adolfo Montero MD MD pkl Alexandre Alvarez RN RN rr5 Mell Lopez RN RN ca1 Corrections: (The following items were deleted from the chart) 00:07 03/27 23:52 03/27/2020 23:52 Discharged to Home. Impression: Chest pain. Asthma. rr5 Condition is Stable. Forms are Medication Reconciliation Form, Thank You Letter, Antibiotic Education, Prescription Opioid Use. Follow up: Private Physician; When: 2 - 3 days; Reason: Re-evaluation by your physician. Problem is new. Symptoms have improved. pkl
--- NOTE | 2020-03-28 19:30 | ER ---
Nurse's Notes [facility] Name: Adelaide Trinidad Age: 20 yrs Sex: Female : 2000 Arrival Date: 03/27/2020 Time: 20:34 Bed 20 Private MD: Diagnosis: Chest pain. Asthma Presentation: 03/27 20:45 Chief complaint: Patient states: Chest pain started around 1.5 hrs ago. Reports pain ca1 radiating to both arms. Reports SOB with chest pain. Denies cough. Coronavirus screen: Proceed with normal triage. Patient denies a cough. Patient denies shortness of breath or difficulty breathing. Patient denies measured and/or subjective temperature greater than 100.4F prior to today's visit. Patient denies travel on a cruise ship or to a country the [facility] currently lists as an affected area. Patient denies contact with known and/or suspected case of COVID-19. Ebola Screen: Patient negative for fever greater than or equal to 101.5 degrees Fahrenheit, and additional compatible Ebola Virus Disease symptoms Patient denies exposure to infectious person. Patient denies travel to an Ebola-affected area in the 21 days before illness onset. No symptoms or risks identified at this time. Initial Sepsis Screen: Does the patient meet any 2 criteria? No. Patient's initial sepsis screen is negative. Does the patient have a suspected source of infection? No. Patient's initial sepsis screen is negative. Risk Assessment: Do you want to hurt yourself or someone else? Patient reports no desire to harm self or others. Onset of symptoms was March 27, 2020 at 19:00. 20:45 Method Of Arrival: Ambulatory ca1 20:45 Acuity: LUIZ 3 ca1 Triage Assessment: 20:54 General: Appears in no apparent distress. comfortable, Behavior is crying. Pain: ca1 Complains of pain in chest Pain radiates to right arm and left arm Pain began 2 hours ago. Cardiovascular: Heart tones S1 S2 present Capillary refill < 3 seconds Patient's skin is warm and dry. Rhythm is sinus rhythm. Respiratory: Airway is patent Respiratory effort is even, unlabored, Respiratory pattern is regular, symmetrical. 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 - Social history:: Smoking status: Patient denies any tobacco usage or history of. Screenin:35 Abuse screen: Denies threats or abuse. Denies injuries from another. Nutritional rr5 screening: No deficits noted. Tuberculosis screening: No symptoms or risk factors identified. Fall Risk IV access (20 points). Total Bautista Fall Scale indicates No Risk (0-24 pts). Assessment: 21:25 General: Appears in no apparent distress. uncomfortable, Behavior is cooperative, rr5 crying. 21:25 Pain: Complains of pain in chest Pain radiates to right arm and left arm Pain currently rr5 is 10 out of 10 on a pain scale. Quality of pain is described as aching, Pain began suddenly, gradually, Is intermittent. Neuro: Level of Consciousness is awake, alert, obeys commands, Oriented to person, place, time, situation. Cardiovascular: Reports chest pain, Capillary refill < 3 seconds Patient's skin is warm and dry. Respiratory: Reports shortness of breath Airway is patent Respiratory effort is even, unlabored, Respiratory pattern is regular, symmetrical. GI: No signs and/or symptoms were reported involving the gastrointestinal system. : No signs and/or symptoms were reported regarding the genitourinary system. EENT: No signs and/or symptoms were reported regarding the EENT system. Derm: Skin is intact, is healthy with good turgor, Skin temperature is warm. Musculoskeletal: Circulation, motion, and sensation intact. Capillary refill < 3 seconds. 22:00 Reassessment: Patient appears in no apparent distress at this time. Patient and/or rr5 family updated on plan of care and expected duration. Pain level reassessed. Patient is alert, oriented x 3, equal unlabored respirations, skin warm/dry/pink. awaiting for results. Patient states symptoms have improved. 23:00 Reassessment: Patient appears in no apparent distress at this time. Patient is alert, rr5 oriented x 3, equal unlabored respirations, skin warm/dry/pink. reassess by ED provider with order made and carried out. 03/28 00:05 Reassessment: Patient appears in no apparent distress at this time. Patient is alert, rr5 oriented x 3, equal unlabored respirations, skin warm/dry/pink. discharge instruction given and explained without complaints made. instructed not allowed to drive and to arrange transport going home. she said her partner will come here to send her home. Patient states feeling better. Patient states symptoms have improved. Vital Signs: 03/27 20:45 BP 126 / 79; Pulse 96; Resp 20 S; Temp 98.5(TE); Pulse Ox 100% on R/A; Weight 86.18 kg ca1 (R); Height 4 ft. 11 in. (149.86 cm) (R); Pain 10/10; 21:30 BP 119 / 78; Pulse 90; Resp 17; Pulse Ox 98% ; Pain 10/10; rr5 22:35 BP 128 / 73; Pulse 110; Resp 19; Pulse Ox 99% ; Pain 8/10; rr5 23:10 BP 120 / 72; Pulse 85; Resp 19; Pulse Ox 100% on R/A; Pain 8/10; rr5 03/28 00:00 BP 115 / 70; Pulse 99; Resp 19; Pulse Ox 100% ; rr5 03/27 20:45 Body Mass Index 38.37 (86.18 kg, 149.86 cm) ca1 ED Course: 03/27 20:34 Patient arrived in ED. ds1 20:47 Triage completed. ca1 20:48 Arm band placed on right wrist. EKG completed in triage. Results shown to MD. ca1 21:00 Patient has correct armband on for positive identification. Bed in low position. Call rr5 light in reach. Pulse ox on. NIBP on. 21:30 Adolfo Montero MD is Attending Physician. pkl 21:32 Alexandre Alvarez, JAZ is Primary Nurse. rr5 22:10 XRAY CXR (1 view) In Process Unspecified. EDMS 22:14 Inserted saline lock: 20 gauge in right forearm, using aseptic technique. Blood rr5 collected. 03/28 00:05 No provider procedures requiring assistance completed. IV discontinued, intact, rr5 bleeding controlled, No redness/swelling at site. Pressure dressing applied. 00:05 Patient maintains SpO2 saturation greater than 95% on room air. rr5 Administered Medications: 03/27 22:14 Drug: Albuterol - atroVENT (3:1) (2.5 mg - 0.5 mg) 3 ml Route: Nebulizer; rr5 23:00 Follow up: Response: No adverse reaction rr5 22:18 Drug: [place] 5 mg-325 mg 1 tabs {Note: rass 0.} Route: PO; rr5 23:10 Follow up: Response: No adverse reaction; Pain is decreased; RASS: Alert and Calm (0) rr5 23:15 Drug: SOLU-Medrol 125 mg Route: IVP; Site: right forearm; rr5 03/28 00:00 Follow up: Response: No adverse reaction rr5 03/27 23:17 Drug: Zofran (Ondansetron) 4 mg Route: IVP; Site: right forearm; rr5 03/28 00:05 Follow up: Response: No adverse reaction rr5 03/27 23:19 Drug: morphine 2 mg {Note: rass 0.} Route: IVP; Site: right forearm; rr5 03/28 00:05 Follow up: Response: No adverse reaction; Pain is decreased; RASS: Alert and Calm (0) rr5 03/27 23:20 Drug: Albuterol 2.5 mg Route: Inhalation; rr5 03/28 00:00 Follow up: Response: No adverse reaction rr5 Outcome: 03/27 23:52 Discharge ordered by . froilan 03/28 00:05 Discharged to home ambulatory. rr5 Condition: stable Discharge instructions given to patient, Instructed on medication usage, Demonstrated understanding of instructions, follow-up care, medications, Prescriptions given X 1. 00:07 Patient left the ED. rr5 Signatures: Dispatcher [employer] EDMS Adolfo Motnero MD MD pkl [place], Demi ds1 Alexandre Alvarez RN RN rr5 Mell Lopez RN RN ca1 Corrections: (The following items were deleted from the chart) 03/27 23:27 03:20 Albuterol 2.5 mg Inhalation rr5 rr5
== END 2020-03-28 00:07 | disposition home or self-care (01) ==
LOC: ER 20:32
DX: J45.909 Unspecified asthma, uncomplicated (principal); F34.1 Dysthymic disorder; Z88.1 Allergy status to other antibiotic agents; Z88.8 Allergy status to other drugs, medicaments and biological substances
CPT/HCPCS: 93005; 36415; 81025; 85379; 81003; 71045; 94640; 96375; 96374; 99285; J2270; J2930; J2405

== ENCOUNTER 2020-04-01 15:24 | Emergency (ER) | payer OTHER ==
[2020-04-01 16:12] LABS: Urine Blood NEGATIVE (NEG); Urine Glucose NEGATIVE (NEG); Urine Protein NEGATIVE (NEG); Urine pH 5.5 (5.0-7.0)
[2020-04-01] MEDS ORDERED: DIPHENHYDRAMINE 50 MG/ML VIAL ONE (16:45)
[2020-04-01] MEDS ORDERED: METOCLOPRAMIDE 10 MG/2mL INJ ONE (16:45)
[2020-04-01] MEDS ORDERED: NA CHLORIDE 0.9% 1,000 ML ONE (16:45)
[2020-04-01] MEDS ORDERED: KETOROLAC 30 MG/ML INJ ONE (16:45)
--- NOTE | 2020-04-01 17:33 | ER ---
Nurse's Notes [facility] Name: Adelaide Trinidad Age: 20 yrs Sex: Female : 2000 Arrival Date: 04/01/2020 Time: 15:28 Bed 18 Private MD: Corby Burnett B Diagnosis: Migraine Presentation: 04/01 15:40 Chief complaint: Patient states: FRANKS and dizziness came on suddenly today. Left ear pain ll1 for 2 days. No fever. Coronavirus screen: Proceed with normal triage. Patient denies a cough. Patient denies shortness of breath or difficulty breathing. Patient denies measured and/or subjective temperature greater than 100.4F prior to today's visit. Patient denies travel on a cruise ship or to a country the [facility] currently lists as an affected area. Patient denies contact with known and/or suspected case of COVID-19. Ebola Screen: Patient denies travel to an Ebola-affected area in the 21 days before illness onset. Initial Sepsis Screen: Does the patient meet any 2 criteria? HR > 90 bpm. No. Patient's initial sepsis screen is negative. Risk Assessment: Do you want to hurt yourself or someone else? Patient reports no desire to harm self or others. 15:40 Method Of Arrival: Ambulatory ll1 15:40 Acuity: LUIZ 4 ll1 15:42 Onset of symptoms was April 01, 2020. ll1 Historical: - Allergies: 15:43 Bactrim; ll1 15:43 Doxycycline; ll1 15:43 Zithromax; ll1 15:43 Zosyn; ll1 - PMHx: 15:43 Asthma; Depression; HYPOGLYCEMIA; scoliosis; Anxiety; ll1 - PSHx: 15:43 Appendectomy; ll1 - Immunization history:: Flu vaccine is not up to date. - Social history:: Patient/guardian denies using alcohol, street drugs, tobacco products, Smoking status: Patient denies any tobacco usage or history of. Screenin/06 16:00 Abuse screen: Denies threats or abuse. Nutritional screening: No deficits noted. Tuberculosis screening: No symptoms or risk factors identified. Fall Risk None identified. Assessment: 04/01 15:45 General: Appears in no apparent distress. Pain: Complains of pain in headache. Neuro: Level of Consciousness is awake, alert, obeys commands, Oriented to person, place, time, situation, Appropriate for age. 15:45 Cardiovascular: Heart tones S1 S2 present Capillary refill < 3 seconds Patient's skin ah is warm and dry. Respiratory: Airway is patent Respiratory effort is even, unlabored, Respiratory pattern is regular, symmetrical. GI: Reports nausea. Derm: Skin is intact, is healthy with good turgor. Vital Signs: 15:40 BP 120 / 61; Pulse 95; Resp 17; Temp 98.5; Pulse Ox 100% ; Pain 10/10; ll1 16:05 BP 111 / 68 LA Supine (auto/lg); Pulse 86; em1 16:08 BP 114 / 72 LA Sitting (auto/lg); Pulse 89; em1 16:11 BP 115 / 81 LA Standing (auto/lg); Pulse 89; em1 [place] Coma Score: 17:29 Eye Response: spontaneous(4). Verbal Response: oriented(5). Motor Response: obeys kb commands(6). Total: 15. ED Course: 15:28 Patient arrived in ED. mr 15:28 Corby Burnett MD is Private Physician. mr 15:40 Sahara Lynn FNP-C [facility]. kb 15:40 Steven Arita MD is Attending Physician. kb 15:42 Triage completed. ll1 15:43 Arm band placed on Patient placed in an exam room, on a stretcher. ll1 15:57 Sharlene Agudelo, RN is Primary Nurse. ah Administered Medications: 16:50 Drug: TORadol - Ketorolac 15 mg Route: IVP; Site: right antecubital; ah 17:50 Follow up: Response: No adverse reaction ah 16:52 Drug: Reglan 10 mg Route: IVP; Site: right antecubital; ah 17:50 Follow up: Response: No adverse reaction ah 16:54 Drug: NS 0.9% 1000 ml Route: IV; Rate: 1000 ml; Site: right antecubital; ah 17:44 Follow up: IV Status: Completed infusion ah 17:50 Follow up: Response: No adverse reaction; IV Status: Completed infusion 16:54 Drug: Benadryl 12.5 mg Route: IVP; Site: right antecubital; 17:50 Follow up: Response: No adverse reaction Outcome: 17:32 Discharge ordered by . kb 17:48 Patient left the ED. hb Signatures: Sahara Lynn, KIARA-Maulik PANTS MAKER-Sol Juli Sifuentes mr Davey, Rajiv em1 Chioma Sosa, RN RN Sharlene Moctezuma, RN RN Laura Bhardwaj RN RN ll1
--- NOTE | 2020-04-01 17:33 | EDPHYS ---
Physician Documentation [facility] Name: Adelaide Trinidad Age: 20 yrs Sex: Female : 2000 Arrival Date: 04/01/2020 Time: 15:28 Bed 18 Private MD: Corby Burnett B ED Physician Steven Arita HPI: 04/01 16:46 This 20 yrs old Female presents to ER via Ambulatory with complaints of kb Dizziness, Headache. 16:46 The patient complains of pain to the top of head. The patient describes the headache as kb throbbing. Onset: The symptoms/episode began/occurred 1 hour(s) ago. Associated signs and symptoms: Pertinent positives: dizziness, nausea, Pertinent negatives: altered mental status, fever, malaise, neck stiffness, paresthesias, Photophobia rash, sinus congestion, sinus tenderness, vision changes, vision loss, vomiting, weakness, vertigo. Severity of symptoms: At its worst the pain was moderate, in the emergency department the pain is unchanged. Headache History: The patient has had previous headaches and this one is similar to previous episodes. The symptoms are alleviated by nothing. the symptoms are aggravated by nothing. The patient has experienced similar episodes in the past, a few times. The patient has not recently seen a physician. Historical: - Allergies: 15:43 Bactrim; ll1 15:43 Doxycycline; ll1 15:43 Zithromax; ll1 15:43 Zosyn; ll1 - PMHx: 15:43 Asthma; Depression; HYPOGLYCEMIA; scoliosis; Anxiety; ll1 - PSHx: 15:43 Appendectomy; ll1 - Immunization history:: Flu vaccine is not up to date. - Social history:: Patient/guardian denies using alcohol, street drugs, tobacco products, Smoking status: Patient denies any tobacco usage or history of. ROS: 16:45 Constitutional: Negative for fever, chills, and weight loss, ENT: Negative for injury, kb pain, and discharge, Neck: Negative for injury, pain, and swelling, Cardiovascular: Negative for chest pain, palpitations, and edema, Respiratory: Negative for shortness of breath, cough, wheezing, and pleuritic chest pain, Abdomen/GI: Negative for abdominal pain, nausea, vomiting, diarrhea, and constipation, Back: Negative for injury and pain, MS/Extremity: Negative for injury and deformity, Skin: Negative for injury, rash, and discoloration. 16:45 Neuro: Positive for dizziness, headache. Exam: 16:45 Constitutional: This is a well developed, well nourished patient who is awake, alert, kb and in no acute distress. Head/Face: Normocephalic, atraumatic. Eyes: Pupils equal round and reactive to light, extra-ocular motions intact. Lids and lashes normal. Conjunctiva and sclera are non-icteric and not injected. Cornea within normal limits. Periorbital areas with no swelling, redness, or edema. ENT: Nares patent. No nasal discharge, no septal abnormalities noted. Tympanic membranes are normal and external auditory canals are clear. Oropharynx with no redness, swelling, or masses, exudates, or evidence of obstruction, uvula midline. Mucous membranes moist. Neck: Trachea midline, no thyromegaly or masses palpated, and no cervical lymphadenopathy. Supple, full range of motion without nuchal rigidity, or vertebral point tenderness. No Meningismus. Chest/axilla: Normal chest wall appearance and motion. Nontender with no deformity. No lesions are appreciated. Cardiovascular: Regular rate and rhythm with a normal S1 and S2. No gallops, murmurs, or rubs. Normal PMI, no JVD. No pulse deficits. Respiratory: Lungs have equal breath sounds bilaterally, clear to auscultation and percussion. No rales, rhonchi or wheezes noted. No increased work of breathing, no retractions or nasal flaring. Abdomen/GI: Soft, non-tender, with normal bowel sounds. No distension or tympany. No guarding or rebound. No evidence of tenderness throughout. Skin: Warm, dry with normal turgor. Normal color with no rashes, no lesions, and no evidence of cellulitis. MS/ Extremity: Pulses equal, no cyanosis. Neurovascular intact. Full, normal range of motion. Neuro: Awake and alert, GCS 15, oriented to person, place, time, and situation. Cranial nerves II-XII grossly intact. Motor strength 5/5 in all extremities. Sensory grossly intact. Cerebellar exam normal. Normal gait. Vital Signs: 15:40 BP 120 / 61; Pulse 95; Resp 17; Temp 98.5; Pulse Ox 100% ; Pain 10/10; ll1 16:05 BP 111 / 68 LA Supine (auto/lg); Pulse 86; em1 16:08 BP 114 / 72 LA Sitting (auto/lg); Pulse 89; em1 16:11 BP 115 / 81 LA Standing (auto/lg); Pulse 89; em1 [place] Coma Score: 17:29 Eye Response: spontaneous(4). Verbal Response: oriented(5). Motor Response: obeys kb commands(6). Total: 15. MDM: 15:40 Patient medically screened. kb 16:45 Data reviewed: vital signs, nurses notes. Data interpreted: Pulse oximetry: on room air kb is 100 %. Interpretation: normal. 17:29 Counseling: I had a detailed discussion with the patient and/or guardian regarding: the kb historical points, exam findings, and any diagnostic results supporting the discharge/admit diagnosis, the need for outpatient follow up, a family practitioner, to return to the emergency department if symptoms worsen or persist or if there are any questions or concerns that arise at home. 17:32 Response to treatment: the patient's symptoms have resolved after treatment, the patient's pain is gone. 04/01 16:06 Order name: Urine Dipstick--Ancillary (enter results); Complete Time: 16:17 hb 04/01 16:06 Order name: Urine --Ancillary (enter results); Complete Time: 16:17 hb 04/01 15:48 Order name: Urine Dipstick-Ancillary (obtain specimen); Complete Time: 16:05 kb 04/01 15:48 Order name: Urine Test (obtain specimen); Complete Time: 16:05 kb 04/01 15:48 Order name: Orthostatics; Complete Time: 16:15 kb 04/01 16:10 Order name: IV Start; Complete Time: 17:44 kb Administered Medications: 16:50 Drug: TORadol - Ketorolac 15 mg Route: IVP; Site: right antecubital; 17:50 Follow up: Response: No adverse reaction ah 16:52 Drug: Reglan 10 mg Route: IVP; Site: right antecubital; 17:50 Follow up: Response: No adverse reaction ah 16:54 Drug: NS 0.9% 1000 ml Route: IV; Rate: 1000 ml; Site: right antecubital; 17:44 Follow up: IV Status: Completed infusion ah 17:50 Follow up: Response: No adverse reaction; IV Status: Completed infusion 16:54 Drug: Benadryl 12.5 mg Route: IVP; Site: right antecubital; 17:50 Follow up: Response: No adverse reaction Disposition: 04/02 07:06 Co-signature as Attending Physician, Steven Arita MD. rn Disposition: 04/01/20 17:32 Discharged to Home. Impression: Migraine. - Condition is Stable. - Discharge Instructions: Migraine Headache, [id number]. - Medication Reconciliation Form, Thank You Letter, Antibiotic Education, Prescription Opioid Use form. - Follow up: Emergency Department; When: As needed; Reason: Worsening of condition. Follow up: Private Physician; When: 2 - 3 days; Reason: Recheck today's complaints, Continuance of care, Re-evaluation by your physician. Signatures: Dispatcher [employer] EDMS Sahara Lynn, LANDSCAPE ARTIST-C LANDSCAPE ARTIST-Ckb Steven Arita MD MD rn Baxter, Heather RN Sharlene Brown RN RN ah Lewis, Lynsay RN RN ll1 Corrections: (The following items were deleted from the chart) 04/01 17:48 17:32 04/01/2020 17:32 Discharged to Home. Impression: Migraine. Condition is Stable. hb Forms are Medication Reconciliation Form, Thank You Letter, Antibiotic Education, Prescription Opioid Use. Follow up: Emergency Department; When: As needed; Reason: Worsening of condition. Follow up: Private Physician; When: 2 - 3 days; Reason: Recheck today's complaints, Continuance of care, Re-evaluation by your physician. kb
[2020-04-01 17:55] VITALS: TEMP 98.5; O2SAT 100
[2020-04-01 17:58] VITALS: BP 115/81
== END 2020-04-01 17:48 | disposition home or self-care (01) ==
LOC: ER 15:24
DX: G43.909 Migraine, unspecified, not intractable, without status migrainosus (principal); Z88.1 Allergy status to other antibiotic agents; Z88.3 Allergy status to other anti-infective agents
CPT/HCPCS: 96361; 81025; 81003; 96375; 96374; 99283; J2765; J1200; J7030

== ENCOUNTER 2020-04-16 23:57 | Emergency (ER) | payer OTHER ==
[2020-04-17] MEDS ORDERED: NA CHLORIDE 0.9% 1,000 ML ONE ×2 (02:24→03:30)
[2020-04-17] MEDS ORDERED: FAMOTIDINE 20 MG/2 ML VIAL IV ONE (02:24)
[2020-04-17 02:38] LABS: Absolute Lymphocytes (CBC) 2.1 K/uL (0.7-4.9); Basophils % 1.3 % (0-1.3); Hematocrit 40.5 % (36.0-45.0); Lymphocytes % 28.7 % (15.3-44.8); MPV 8.9 fL (7.6-11.3)
[2020-04-17 02:42] LABS: Urine Blood NEGATIVE (NEG); Urine Glucose NEGATIVE (NEG); Urine Protein NEGATIVE (NEG); Urine Specific Gravity 1.025 (1.005-1.030); Urine pH 6.5 (5.0-7.0)
[2020-04-17 02:52] LABS: ALT/SGPT 23 U/L (12-78); AST/SGOT 12 U/L (15-37); Albumin 3.8 g/dL (3.4-5.0); Alkaline Phosphatase 65 U/L (45-117); BUN Blood Urea Nitrogen 7 mg/dL (7-18); Bicarbonate 19 mmol/L (21-32); Bilirubin Direct < 0.1 mg/dL (0-0.2); Bilirubin Total 0.4 mg/dL (0.2-1.0); Glucose Level 90 mg/dL (74-106); Lipase 56 U/L (73-393); Potassium 3.8 mmol/L (3.5-5.1); Protein, Total 7.7 g/dL (6.4-8.2); Sodium Level 140 mmol/L (136-145)
--- NOTE | 2020-04-17 03:15 | ER ---
Nurse's Notes [facility] Name: Adelaide Trinidad Age: 20 yrs Sex: Female : 2000 Arrival Date: 04/17/2020 Time: 00:00 Bed 4 Private MD: Corby Burnett B Diagnosis: Abdominal tenderness;Functional dyspepsia Presentation: 04/17 00:18 Chief complaint: Patient states: Mid abdominal pain for 1 week, worse for 1 day. Slight ll1 nausea at times. No diarrhea. No fever. UPT negative at home. Coronavirus screen: Proceed with normal triage. Patient denies a cough. Patient denies shortness of breath or difficulty breathing. Patient denies measured and/or subjective temperature greater than 100.4F prior to today's visit. Patient denies travel on a cruise ship or to a country the [facility] currently lists as an affected area. Patient denies contact with known and/or suspected case of COVID-19. Ebola Screen: Patient denies travel to an Ebola-affected area in the 21 days before illness onset. Initial Sepsis Screen: Does the patient meet any 2 criteria? HR > 90 bpm. Risk Assessment: Do you want to hurt yourself or someone else? Patient reports no desire to harm self or others. Onset of symptoms was April 11, 2020. 00:18 Method Of Arrival: Ambulatory ll1 00:18 Acuity: LUIZ 3 ll1 03:30 Initial Sepsis Screen: Does the patient have a suspected source of infection? No. mg2 Patient's initial sepsis screen is negative. MANAGER BAR: 03:31 lmp unknown mg2 Historical: - Allergies: 00:20 Bactrim; ll1 00:20 Doxycycline; ll1 00:20 Zithromax; ll1 00:20 Zosyn; ll1 - Home Meds: 03:31 albuterol sulfate 90 mcg/actuation Inhl HFAA 2 puffs q4hrs prn [Active]; Singulair 10 mg2 mg Oral tab 1 tab once daily [Active]; - PMHx: 00:20 Asthma; Depression; HYPOGLYCEMIA; scoliosis; Anxiety; ll1 - PSHx: 00:20 Appendectomy; ll1 - Immunization history:: Adult Immunizations up to date, Flu vaccine is not up to date. - Social history:: Smoking status: Patient denies any tobacco usage or history of. Patient/guardian denies using alcohol, street drugs, tobacco products. - Family history:: not pertinent. Screenin:29 Abuse screen: Denies threats or abuse. Denies injuries from another. Nutritional mg2 screening: No deficits noted. Tuberculosis screening: No symptoms or risk factors identified. Fall Risk IV access (20 points). Assessment: 01:50 Reassessment: pt transported ambulatory to ER exam room, pt tolerated well, pt placed sg in gown and warm blankets given, pt tolerated well. 02:20 General: Appears in no apparent distress. comfortable, Behavior is calm, cooperative. mg2 02:20 Pain: Complains of pain in abdomen Pain does not radiate. Pain currently is 5 out of 10 mg2 on a pain scale. Quality of pain is described as aching, Pain began gradually. Neuro: Level of Consciousness is awake, alert, obeys commands, Oriented to person, place, time, situation. Cardiovascular: Capillary refill < 3 seconds Patient's skin is warm and dry. Respiratory: Airway is patent Respiratory effort is even, unlabored, Respiratory pattern is regular, symmetrical. GI: Bowel sounds present X 4 quads. Abd is soft X 4 quads. : Urine is clear. EENT: No signs and/or symptoms were reported regarding the EENT system. Derm: Skin is intact, is healthy with good turgor, Skin is pink, warm \T\ dry. normal. Musculoskeletal: Circulation, motion, and sensation intact. Capillary refill < 3 seconds. 03:32 Reassessment: patient for dc when ct is back and negative. mg2 04:19 Reassessment: Patient appears in no apparent distress at this time. Patient is alert, mg2 oriented x 3, equal unlabored respirations, skin warm/dry/pink. 04:36 Reassessment: Patient denies pain at this time. Patient states feeling better. Patient mg2 states symptoms have improved. Vital Signs: 00:18 BP 129 / 64; Pulse 100; Resp 19; Temp 98.1; Pulse Ox 100% ; Pain 9/10; ll1 03:29 BP 143 / 87; Pulse 72; Resp 18; Pulse Ox 96% on R/A; mg2 04:36 BP 135 / 78; Pulse 80; Resp 18; Temp 98.1; Pulse Ox 100% on R/A; Pain 0/10; mg2 ED Course: 00:00 Patient arrived in ED. es 00:01 Corby Burnett MD is Private Physician. es 00:19 Triage completed. ll1 00:20 Arm band placed on. ll1 01:52 Juan A Louie MD is Attending Physician. antionette 02:14 Samuel Bundy RN is Primary Nurse. mg2 02:25 Inserted saline lock: 22 gauge in right forearm, using aseptic technique. Blood mg2 collected. 03:13 Corby Burnett MD is Referral Physician. antionette 03:14 Shahbaz Phan MD is Referral Physician. antionette 03:14 Marek Hilario MD is Referral Physician. antionette 03:21 CT Abd/Pelvis - IV Contrast Only In Process Unspecified. EDMS 03:29 Patient has correct armband on for positive identification. Pulse ox on. NIBP on. Door mg2 closed. Warm blanket given. 03:29 No provider procedures requiring assistance completed. mg2 04:36 IV discontinued, intact, bleeding controlled, No redness/swelling at site. Pressure mg2 dressing applied. Administered Medications: 02:30 Drug: Pepcid 20 mg Route: IVP; Site: right forearm; mg2 04:02 Follow up: Response: No adverse reaction; Marked relief of symptoms mg2 02:31 Drug: NS 0.9% 1000 ml Route: IV; Rate: 1 bolus; Site: right forearm; mg2 04:02 Follow up: Response: No adverse reaction; IV Status: Completed infusion; IV Intake: mg2 1000ml 03:28 Drug: NS 0.9% 1000 ml Route: IV; Rate: 1 bolus; Site: right forearm; mg2 04:02 Follow up: Response: No adverse reaction; IV Status: Completed infusion; IV Intake: mg2 1000ml 03:28 Drug: morphine 2 mg Route: IVP; Site: right forearm; mg2 04:01 Follow up: Response: No adverse reaction; Marked relief of symptoms; RASS: Alert and mg2 Calm (0) 03:28 Drug: Zofran (Ondansetron) 4 mg Route: IVP; Site: right forearm; mg2 04:01 Follow up: Response: No adverse reaction mg2 04:17 Drug: morphine 2 mg Route: IVP; Site: right forearm; mg2 04:36 Follow up: Response: No adverse reaction; Marked relief of symptoms; RASS: Alert and mg2 Calm (0) Intake: 04:02 IV: 1000ml; Total: 1000ml. mg2 04:02 IV: 1000ml; Total: 2000ml. mg2 Outcome: 03:15 Discharge ordered by . antionette 04:36 Discharged to home ambulatory. mg2 04:36 Condition: stable 04:36 Discharge instructions given to patient, Instructed on discharge instructions, follow up and referral plans. medication usage, Demonstrated understanding of instructions, follow-up care, medications, Prescriptions given X 3. 04:37 Patient left the ED. mg2 Signatures: Dispatcher [employer] EDCristino Padgett RN RN sg Anderson, Corey, MD MD cha Salyer, Edna es Gardose, Michele, RN RN mg2 Laura Bhardwaj RN RN ll1
--- NOTE | 2020-04-17 03:15 | EDPHYS ---
Physician Documentation [facility] Name: Adelaide Trinidad Age: 20 yrs Sex: Female : 2000 Arrival Date: 04/17/2020 Time: 00:00 Bed 4 Private MD: Corby Burnett B ED Physician Juan A Louie HPI: 04/17 02:02 This 20 yrs old Female presents to ER via Ambulatory with complaints of antionette Abdominal Pain. 02:02 The patient presents with abdominal pain in the upper abdomen, in the lower abdomen, antionette abdominal distention in the upper abdomen, in the lower abdomen. Onset: The symptoms/episode began/occurred 1 day(s) ago. The symptoms do not radiate. Associated signs and symptoms: none. The symptoms are described as crampy. Severity of pain: At its worst the pain was moderate in the emergency department the pain is unchanged. The patient has not experienced similar symptoms in the past. 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 - Social history:: Smoking status: Patient denies any tobacco usage or history of. Patient/guardian denies using alcohol, street drugs, tobacco products. - Family history:: not pertinent. ROS: 02:02 Constitutional: Negative for fever, chills, and weight loss, Eyes: Negative for injury, antionette pain, redness, and discharge, ENT: Negative for injury, pain, and discharge, Neck: Negative for injury, pain, and swelling, Cardiovascular: Negative for chest pain, palpitations, and edema, Respiratory: Negative for shortness of breath, cough, wheezing, and pleuritic chest pain, Back: Negative for injury and pain, : Negative for injury, bleeding, discharge, and swelling, MS/Extremity: Negative for injury and deformity, Skin: Negative for injury, rash, and discoloration, Neuro: Negative for headache, weakness, numbness, tingling, and seizure, Psych: Negative for depression, anxiety, suicide ideation, homicidal ideation, and hallucinations, Allergy/Immunology: Negative for hives, rash, and allergies, Endocrine: Negative for neck swelling, polydipsia, polyuria, polyphagia, and marked weight changes, Hematologic/Lymphatic: Negative for swollen nodes, abnormal bleeding, and unusual bruising. 02:02 Abdomen/GI: Positive for abdominal pain, of the right upper quadrant, left upper quadrant and abdomen diffusely. Exam: 02:02 Constitutional: This is a well developed, well nourished patient who is awake, alert, antionette and in no acute distress. Head/Face: Normocephalic, atraumatic. Eyes: Pupils equal round and reactive to light, extra-ocular motions intact. Lids and lashes normal. Conjunctiva and sclera are non-icteric and not injected. Cornea within normal limits. Periorbital areas with no swelling, redness, or edema. ENT: Nares patent. No nasal discharge, no septal abnormalities noted. Tympanic membranes are normal and external auditory canals are clear. Oropharynx with no redness, swelling, or masses, exudates, or evidence of obstruction, uvula midline. Mucous membranes moist. Neck: Trachea midline, no thyromegaly or masses palpated, and no cervical lymphadenopathy. Supple, full range of motion without nuchal rigidity, or vertebral point tenderness. No Meningismus. Chest/axilla: Normal chest wall appearance and motion. Nontender with no deformity. No lesions are appreciated. Cardiovascular: Regular rate and rhythm with a normal S1 and S2. No gallops, murmurs, or rubs. Normal PMI, no JVD. No pulse deficits. Respiratory: Lungs have equal breath sounds bilaterally, clear to auscultation and percussion. No rales, rhonchi or wheezes noted. No increased work of breathing, no retractions or nasal flaring. Back: No spinal tenderness. No costovertebral tenderness. Full range of motion. Female : Normal external genitalia. Skin: Warm, dry with normal turgor. Normal color with no rashes, no lesions, and no evidence of cellulitis. MS/ Extremity: Pulses equal, no cyanosis. Neurovascular intact. Full, normal range of motion. Neuro: Awake and alert, GCS 15, oriented to person, place, time, and situation. Cranial nerves II-XII grossly intact. Motor strength 5/5 in all extremities. Sensory grossly intact. Cerebellar exam normal. Normal gait. Psych: Awake, alert, with orientation to person, place and time. Behavior, mood, and affect are within normal limits. 02:02 Abdomen/GI: Inspection: abdomen appears normal, Bowel sounds: normal, Palpation: mild abdominal tenderness, in all quadrants, Liver: is firm, Hernia: not appreciated. Vital Signs: 00:18 BP 129 / 64; Pulse 100; Resp 19; Temp 98.1; Pulse Ox 100% ; Pain 9/10; ll1 03:29 BP 143 / 87; Pulse 72; Resp 18; Pulse Ox 96% on R/A; mg2 04:36 BP 135 / 78; Pulse 80; Resp 18; Temp 98.1; Pulse Ox 100% on R/A; Pain 0/10; mg2 MDM: 01:52 Patient medically screened. antionette 02:04 Data reviewed: vital signs, nurses notes, lab test result(s), radiologic studies, plain antionette films. 03:16 Differential diagnosis: bowel obstruction, cholecystitis, Cholelithiasis, antionette diverticulitis, gastritis, Irritable bowel syndrome, Menorrhagia, non-specific abd pain, Peritonitis. 03:16 Data interpreted: monitor and storage bin tender: rate is 100 beats/min, rhythm is normal sinus antionette rhythm, Pulse oximetry: on room air is 100 %. Test interpretation: by ED physician or midlevel provider: ECG. Counseling: I had a detailed discussion with the patient and/or guardian regarding: the historical points, exam findings, and any diagnostic results supporting the discharge/admit diagnosis, lab results, radiology results, the need for outpatient follow up, for definitive care, a neurologist. 03:18 ED course: all labs and test results discussed, pt will follow up and or return if antionette symptoms worsens. 04:16 Medication response: Zofran markedly relieved the patient's nausea. ED course: ct antionette abd/pel no acute intra abdominal abnormality. 04/17 02:02 Order name: Basic Metabolic Panel; Complete Time: 03:03 antionette 04/17 02:02 Order name: CBC with Diff; Complete Time: 03:03 antionette 04/17 02:02 Order name: Hepatic Function; Complete Time: 03:03 [facility] 04/17 02:02 Order name: Lipase; Complete Time: 03:03 [facility] 04/17 02:36 Order name: Urine Dipstick--Ancillary (enter results); Complete Time: 03:03 04/17 02:36 Order name: Urine --Ancillary (enter results); Complete Time: 03:03 04/17 02:02 Order name: IV Saline Lock; Complete Time: 02:31 [facility] 04/17 02:02 Order name: CT Abd/Pelvis - IV Contrast Only [facility] 04/17 02:49 Order name: CREATININE WHOLE BLOOD; Complete Time: 03:03 [facility] 04/17 02:02 Order name: Labs collected and sent; Complete Time: 02:31 [facility] 04/17 02:02 Order name: Urine Dipstick-Ancillary (obtain specimen); Complete Time: 02:31 [facility] 04/17 02:02 Order name: Urine Test (obtain specimen); Complete Time: 02:31 [facility] Administered Medications: 02:30 Drug: Pepcid 20 mg Route: IVP; Site: right forearm; mg2 04:02 Follow up: Response: No adverse reaction; Marked relief of symptoms mg2 02:31 Drug: NS 0.9% 1000 ml Route: IV; Rate: 1 bolus; Site: right forearm; mg2 04:02 Follow up: Response: No adverse reaction; IV Status: Completed infusion; IV Intake: mg2 1000ml 03:28 Drug: NS 0.9% 1000 ml Route: IV; Rate: 1 bolus; Site: right forearm; mg2 04:02 Follow up: Response: No adverse reaction; IV Status: Completed infusion; IV Intake: mg2 1000ml 03:28 Drug: morphine 2 mg Route: IVP; Site: right forearm; mg2 04:01 Follow up: Response: No adverse reaction; Marked relief of symptoms; RASS: Alert and mg2 Calm (0) 03:28 Drug: Zofran (Ondansetron) 4 mg Route: IVP; Site: right forearm; mg2 04:01 Follow up: Response: No adverse reaction mg2 04:17 Drug: morphine 2 mg Route: IVP; Site: right forearm; mg2 04:36 Follow up: Response: No adverse reaction; Marked relief of symptoms; RASS: Alert and mg2 Calm (0) Disposition: 04/17/20 03:15 Discharged to Home. Impression: Abdominal tenderness, Functional dyspepsia. - Condition is Stable. - Discharge Instructions: Abdominal Pain, Adult, Indigestion, Nausea and Vomiting, Adult, Abdominal Pain, Adult, [id number], Indigestion, [id number]. - Prescriptions for Bentyl 20 mg Oral Tablet - take 1 tablet by ORAL route every 6 hours As needed; 20 tablet. Pepcid 20 mg Oral Tablet - take 1 tablet by ORAL route every 12 hours for 10 days; 20 tablet. Zofran 4 mg Oral Tablet - take 1 tablet by ORAL route every 12 hours As needed; 20 tablet. - Medication Reconciliation Form, Thank You Letter, Antibiotic Education, Prescription Opioid Use form. - Follow up: Corby Burnett MD; When: 2 - 3 days; Reason: Recheck today's complaints, Continuance of care, Re-evaluation by your physician. Follow up: Shahbaz Phan MD; When: 2 - 3 days; Reason: Recheck today's complaints, Re-evaluation by your physician. Follow up: Marek Hilario MD; When: 2 - 3 days; Reason: Recheck today's complaints, Re-evaluation by your physician. - Problem is new. - Symptoms have improved. Signatures: Dispatcher [employer] EDJuan A Alexander MD MD cha Gardose, Michele, RN RN mg2 Laura Bhardwaj RN RN ll1 Corrections: (The following items were deleted from the chart) 04:37 03:15 04/17/2020 03:15 Discharged to Home. Impression: Abdominal tenderness; Functional mg2 dyspepsia. Condition is Stable. Forms are Medication Reconciliation Form, Thank You Letter, Antibiotic Education, Prescription Opioid Use. Follow up: Corby Burnett; When: 2 - 3 days; Reason: Recheck today's complaints, Continuance of care, Re-evaluation by your physician. Follow up: Shahbaz Phan; When: 2 - 3 days; Reason: Recheck today's complaints, Re-evaluation by your physician. Follow up: Marek Hilario; When: 2 - 3 days; Reason: Recheck today's complaints, Re-evaluation by your physician. Problem is new. Symptoms have improved. antionette
[2020-04-17] MEDS ORDERED: MORPHINE 2 MG/ML SYR ONE ×2 (03:30→04:23)
[2020-04-17] MEDS ORDERED: ONDANSETRON 4 MG/2 ML VIAL ONE (03:30)
[2020-04-17 04:45] VITALS: TEMP 98.1
[2020-04-17 04:47] VITALS: BP 135/78; O2SAT 100
--- NOTE | 2020-04-17 19:52 | RAD REPORT ---
EXAM DESCRIPTION: CT - Abdomen Pelvis W Contrast - 04/17/2020 4:27 am CLINICAL HISTORY: 20 years Female, ABD PAIN COMPARISON: Abdominal pain TECHNIQUE: Contiguous axial CT images of the abdomen and pelvis were obtained. Sagittal and coronal reformats we re reviewed. This exam was performed according to our departmental dose-optimization program, which includes automated exposure control, adjustment of the mA and/or kV according to patient size and/or use of iterative reconstruction technique. FINDINGS: Lung bases: Clear. Liver: Unremarkable. No focal liver lesion. Gallbladder: Unremarkable. No gallstones. No gallbladder wall thickening or pericholecystic fluid. Spleen: Unremarkable Pancreas: Pancreas is unremarkable. Adrenal glands: Within normal limits. Kidneys/ureters: Within normal limits Stomach/small bowel/colon: Stomach is unremarkable. Small bowel is unremarkable. Colon is unremar kable. Appendix: Appendectomy. Peritoneum: No free fluid. Vascular structures: within normal limits Lymph nodes: No abnormal lymph nodes. Bladder: Unremarkable. Pelvic organs: No acute abnormality. Ring type IUD is noted. Bones: No acute osseous abnormality. Soft tissues: Small fat containing umbilical hernia.. IMPRESSION: No acute intra-abdominal abnormality. Electronically signed by: Lauri Johnston DO 04/17/2020 3:35 AM CDT Due to temporary technical issues with the PACS/Fluency reporting system, reports are being signed by the in house radiologist without review as a courtesy to ensure prompt reporting. The interpreting r adiologist is fully responsible for the content of the report.
== END 2020-04-17 04:37 | disposition home or self-care (01) ==
LOC: ER 23:57
DX: K30 Functional dyspepsia (principal); F34.1 Dysthymic disorder; J45.909 Unspecified asthma, uncomplicated; Z88.1 Allergy status to other antibiotic agents; Z88.8 Allergy status to other drugs, medicaments and biological substances
CPT/HCPCS: 96361; 85025; 80048; 36415; 81025; 82565; 80076; 81003; 83690; 74177; 96375; 96374; 99284; Q9967; J2270 ×2; J7030 ×2; J2405

== ENCOUNTER 2020-05-17 20:41 | Emergency (ER) | payer OTHER ==
[2020-05-17] MEDS ORDERED: predniSONE 20 MG TAB ONE (21:25)
[2020-05-17] MEDS ORDERED: ALBUTEROL 2.5 MG/3 ML NEB SOL ONE (21:25)
[2020-05-17] MEDS ORDERED: IPRATROPIUM BROM 0.5MG/2.5ML ONE (21:25)
[2020-05-17 21:26] LABS: Urine Blood NEGATIVE (NEG); Urine Glucose NEGATIVE (NEG); Urine Protein NEGATIVE (NEG); Urine Specific Gravity 1.015 (1.005-1.030); Urine pH 6.5 (5.0-7.0)
[2020-05-17] MEDS ORDERED: ONDANSETRON 4 MG (ODT) TAB ONE (21:31)
[2020-05-17 21:50] LABS: Urine Bacteria 20-50 /HPF (<20); Urine Culture Reflex Order REFLEXED; Urine RBC <5 /HPF (NONE SEEN)
[2020-05-17] MEDS ORDERED: TRAMADOL HCL 50 MG TAB ONE (22:14)
--- NOTE | 2020-05-17 22:56 | EDPHYS ---
Physician Documentation [facility] Name: Adelaide Trinidad Age: 20 yrs Sex: Female : 2000 Arrival Date: 05/17/2020 Time: 20:43 Bed 7 Private MD: ED Physician Adolfo Montero HPI: 05/17 21:13 This 20 yrs old Female presents to ER via Ambulatory with complaints of Chest jmm Pain. 21:13 The patient presents to the emergency department with wheezing, Current therapy: jmm albuterol inhaler. Onset: The symptoms/episode began/occurred gradually, today. Modifying factors: The symptoms are alleviated by nothing, the symptoms are aggravated by nothing. Associated signs and symptoms: Pertinent positives: chest pain. The patient has experienced similar episodes in the past. This is a 20 year old female with a history of asthma that presents to the ED with complaints wheezing and chest pain beginnning today. Denies fever. Similar to previous episodes of asthma. . 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 - Social history:: Smoking status: Patient denies any tobacco usage or history of. ROS: 21:13 Constitutional: Negative for fever, chills, and weight loss, Cardiovascular: Negative jmm for chest pain, palpitations, and edema. 21:13 Respiratory: Positive for wheezing. 21:13 All other systems are negative. Exam: 21:13 Constitutional: This is a well developed, well nourished patient who is awake, alert, jmm and in no acute distress. Head/Face: atraumatic. Eyes: EOMI, no conjunctival erythema appreciated ENT: Moist Mucus Membranes Neck: Trachea midline, Supple Chest/axilla: Normal chest wall appearance and motion. Cardiovascular: Regular rate and rhythm. No edema appreciated Abdomen/GI: Non distended, soft Back: Normal ROM Skin: General appearance color normal MS/ Extremity: Moves all extremities, no obvious deformities appreciated, no edema noted to the lower extremities Neuro: Awake and alert, normal gait Psych: Behavior is normal, Mood is normal, Patient is cooperative and pleasant 21:13 Respiratory: the patient does not display signs of respiratory distress, Respirations: normal, Breath sounds: wheezing: is heard diffusely. Vital Signs: 20:58 BP 125 / 73; Pulse 118; Resp 17 S; Temp 98.2(TE); Pulse Ox 100% on R/A; Weight 86.18 kg jd3 (R); Height 4 ft. 11 in. (149.86 cm) (R); Pain 8/10; 22:01 BP 139 / 69; Pulse 110; Resp 19; Pulse Ox 99% ; ea 23:02 BP 122 / 78; Pulse 101; Resp 18; Temp 98.1; Pulse Ox 100% on R/A; mg2 20:58 Body Mass Index 38.37 (86.18 kg, 149.86 cm) jd3 MDM: 21:13 Patient medically screened. [facility] 22:09 Data reviewed: vital signs, nurses notes. Counseling: I had a detailed discussion with [facility] the patient and/or guardian regarding: the historical points, exam findings, and any diagnostic results supporting the discharge/admit diagnosis. 22:54 Counseling: I had a detailed discussion with the patient and/or guardian regarding: the [facility] need for outpatient follow up, to return to the emergency department if symptoms worsen or persist or if there are any questions or concerns that arise at home. ED course: Decreased wheezing on reauscultation. Patient is given strict return precautions. Patient understood and agrees with the plan of care. . 05/17 21:17 Order name: Urine Microscopic Only; Complete Time: 22:02 ds4 05/17 21:19 Order name: Urine Dipstick--Ancillary (enter results); Complete Time: 21:33 ds4 05/17 21:19 Order name: Urine --Ancillary (enter results); Complete Time: 21:33 ds4 05/17 21:52 Order name: Urine Culture [facility] 05/17 21:16 Order name: Urine Dipstick-Ancillary (obtain specimen); Complete Time: 21:17 [facility] 05/17 21:16 Order name: Urine Test (obtain specimen); Complete Time: 21:17 [facility] Administered Medications: 21: Drug: Albuterol - atroVENT (3:1) (2.5 mg - 0.5 mg) 3 ml Route: Nebulizer; ea 21:58 Follow up: Response: No adverse reaction; Marked relief of symptoms ea 21:23 Drug: Zofran (Ondansetron) 4 mg Route: PO; ea 21:59 Follow up: Response: No adverse reaction ea 21:30 Drug: predniSONE 60 mg Route: PO; ea 21:59 Follow up: Response: No adverse reaction ea 22:11 Drug: traMADol 50 mg Route: PO; ea 23:02 Follow up: Response: No adverse reaction mg2 Disposition: 23:03 Co-signature as Attending Physician, Adolfo Montero MD. froilan Disposition: 05/17/20 22:55 Discharged to Home. Impression: Unspecified asthma with (acute) exacerbation. - Condition is Stable. - Discharge Instructions: Asthma, Adult. - Prescriptions for Prednisone 20 mg Oral Tablet - take 3 tablet by ORAL route once daily for 5 days; 15 tablet. - Medication Reconciliation Form, Thank You Letter, Antibiotic Education, Prescription Opioid Use form. - Follow up: Private Physician; When: 2 - 3 days; Reason: Recheck today's complaints, Continuance of care, Re-evaluation by your physician. Signatures: Dispatcher [employer] Adolfo Padilla MD MD pkl Gabino Andres PA PA jmm Antunez, Elena, RN RN ea Davies, Jonathon, RN RN jSamuel Millard RN RN mg2 Corrections: (The following items were deleted from the chart) 23:03 22:55 05/17/2020 22:55 Discharged to Home. Impression: Unspecified asthma with (acute) mg2 exacerbation. Condition is Stable. Forms are Medication Reconciliation Form, Thank You Letter, Antibiotic Education, Prescription Opioid Use. Follow up: Private Physician; When: 2 - 3 days; Reason: Recheck today's complaints, Continuance of care, Re-evaluation by your physician. [facility]
--- NOTE | 2020-05-17 22:56 | ER ---
Nurse's Notes [facility] Name: Adelaide Trinidad Age: 20 yrs Sex: Female : 2000 Arrival Date: 05/17/2020 Time: 20:43 Bed 7 Private MD: Diagnosis: Unspecified asthma with (acute) exacerbation Presentation: 05/17 20:55 Chief complaint: Patient states: "I have been having chest pain for a week now that has jd3 been getting more and more constant. I had an asthma attack today and the chest pain was worse so I felt I needed to come get seen. it is in the left side of my chest and comes down my left arm.". Coronavirus screen: Proceed with normal triage. Ebola Screen: Patient negative for fever greater than or equal to 101.5 degrees Fahrenheit, and additional compatible Ebola Virus Disease symptoms. Initial Sepsis Screen: Does the patient meet any 2 criteria? No. Patient's initial sepsis screen is negative. Does the patient have a suspected source of infection? No. Patient's initial sepsis screen is negative. Risk Assessment: Do you want to hurt yourself or someone else? Patient reports no desire to harm self or others. Onset of symptoms was May 17, 2020. 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 - Social history:: Smoking status: Patient denies any tobacco usage or history of. Screenin:00 Abuse screen: Denies threats or abuse. Nutritional screening: No deficits noted. ea Tuberculosis screening: No symptoms or risk factors identified. Fall Risk None identified. Assessment: 21:10 General: Appears in no apparent distress. Behavior is calm, cooperative, appropriate ea for age. Pain: Complains of pain in chest Pain radiates to left arm Pain began 2-3 days ago. Neuro: Level of Consciousness is awake, alert, obeys commands, Oriented to person, place, time, situation. Cardiovascular: Patient's skin is warm and dry. Respiratory: Airway is patent Respiratory effort is even, unlabored, Respiratory pattern is regular, symmetrical, Breath sounds with wheezes. Derm: Skin is pink, warm \\T\\ dry. 22:01 Reassessment: Patient and/or family updated on plan of care and expected duration. Pain ea level reassessed. Patient is alert, oriented x 3, equal unlabored respirations, skin warm/dry/pink. 23:02 Reassessment: Patient denies pain at this time. Patient states feeling better. Patient mg2 states symptoms have improved. Vital Signs: 20:58 BP 125 / 73; Pulse 118; Resp 17 S; Temp 98.2(TE); Pulse Ox 100% on R/A; Weight 86.18 kg jd3 (R); Height 4 ft. 11 in. (149.86 cm) (R); Pain 8/10; 22:01 BP 139 / 69; Pulse 110; Resp 19; Pulse Ox 99% ; ea 23:02 BP 122 / 78; Pulse 101; Resp 18; Temp 98.1; Pulse Ox 100% on R/A; mg2 20:58 Body Mass Index 38.37 (86.18 kg, 149.86 cm) jd3 ED Course: 20:43 Patient arrived in ED. ds1 20:57 Triage completed. jd3 20:59 Arm band placed on. jd3 21:00 Taryn Ryan, RN is Primary Nurse. ea 21:00 Patient has correct armband on for positive identification. Bed in low position. Call ea light in reach. Pulse ox on. NIBP on. 21:01 Patient maintains SpO2 saturation greater than 95% on room air. ea 21:02 Gabino Andres PA is PHCP. [facility] 21:02 Adolfo Montero MD is Attending Physician. m 21:19 Urine Microscopic Only Sent. ds4 21:20 Urine Dipstick--Ancillary (enter results) Sent. ds4 23:03 No provider procedures requiring assistance completed. Patient did not have IV access mg2 during this emergency room visit. Administered Medications: 21:21 Drug: Albuterol - atroVENT (3:1) (2.5 mg - 0.5 mg) 3 ml Route: Nebulizer; ea 21:58 Follow up: Response: No adverse reaction; Marked relief of symptoms ea 21:23 Drug: Zofran (Ondansetron) 4 mg Route: PO; ea 21:59 Follow up: Response: No adverse reaction ea 21:30 Drug: predniSONE 60 mg Route: PO; ea 21:59 Follow up: Response: No adverse reaction ea 22:11 Drug: traMADol 50 mg Route: PO; ea 23:02 Follow up: Response: No adverse reaction mg2 Outcome: 22:55 Discharge ordered by . isha 23:02 Discharged to home ambulatory. mg2 23:02 Condition: stable 23:02 Discharge instructions given to patient, Instructed on discharge instructions, follow up and referral plans. medication usage, Demonstrated understanding of instructions, follow-up care, medications, Prescriptions given X 1. 23:03 Patient left the ED. mg2 Addendum: 05/21/2020 13:05 Addendum: Culture Results: Positive urine culture. Phone call Attempt #1 Attempted to h b call rx in to [facility], phone system not working. Dr. Louie wrote paper rx, given to pt in ED lobby. Signatures: Gabino Andres PA PA jmm Sanford, Demi ds1 Rico Villarreal ds4 Chioma Sosa RN RN hb Antunez, Elena, RN RN ea Davies, Jonathon, RN RN jd3 Gardose, Michele, RN RN mg2
--- NOTE | 2020-05-18 12:33 | EKG ---
Test Date: 2020-05-17 Test Time: 21:14:26 Director Medical Surgical: SARAH MEASUREMENT RESULTS: Intervals: Rate: 107 WV: 128 QRSD: 70 QT: 320 QTc: 427 [place]: P: 65 WV: 128 QRS: 61 T: 19 INTERPRETIVE STATEMENTS: Sinus tachycardia Otherwise normal ECG Electronically Signed On 05-18-20 12:31:20 CDT by Elijah Yanez
[2020-05-18 14:43] VITALS: BP 122/78; TEMP 98.1; O2SAT 100
== END 2020-05-17 23:03 | disposition home or self-care (01) ==
LOC: ER 20:41
DX: J45.901 Unspecified asthma with (acute) exacerbation (principal); Z88.1 Allergy status to other antibiotic agents; Z88.8 Allergy status to other drugs, medicaments and biological substances
CPT/HCPCS: 93005; 87088; 87086; 81025; 87077; 87186; 99285; J7512; 81003; 81015

== ENCOUNTER 2020-07-01 19:04 | Emergency (ER) | payer OTHER ==
[2020-07-01 20:03] LABS: Absolute Lymphocytes (CBC) 1.4 K/uL (0.7-4.9); Basophils % 0.9 % (0-1.3); MPV 9.5 fL (7.6-11.3)
[2020-07-01 20:06] LABS: Protime INR 0.9
[2020-07-01 20:07] LABS: Lymphocytes % 24.2 % (15.3-44.8); RBC Red Blood Cell Count 4.35 M/uL (3.86-4.86)
[2020-07-01 20:24] LABS: ALT/SGPT 18 U/L (12-78); AST/SGOT 9 U/L (15-37); Albumin 3.7 g/dL (3.4-5.0); Alkaline Phosphatase 67 U/L (45-117); BUN Blood Urea Nitrogen 8 mg/dL (7-18); Bicarbonate 22 mmol/L (21-32); Bilirubin Direct < 0.1 mg/dL (0-0.2); Bilirubin Total 0.3 mg/dL (0.2-1.0); Glucose Level 80 mg/dL (74-106); NT PRO-BNP 72 pg/mL (<125); Potassium 3.4 mmol/L (3.5-5.1); Protein, Total 7.3 g/dL (6.4-8.2); Sodium Level 142 mmol/L (136-145); Troponin I < 0.02 ng/mL (0.0-0.045)
--- NOTE | 2020-07-01 20:38 | RAD REPORT ---
EXAM DESCRIPTION: Jarrett Single View07/01/2020 8:10 pm CLINICAL HISTORY: Chest pain COMPARISON: February 2020 FINDINGS: The lungs appear clear of acute infiltrate. The heart is normal size IMPRESSION: No acute abnormalities displayed
[2020-07-01] MEDS ORDERED: KETOROLAC 30 MG/ML INJ ONE (21:02)
--- NOTE | 2020-07-03 15:16 | EDPHYS ---
Physician Documentation [facility] Name: Adelaide Trinidad Age: 20 yrs Sex: Female : 2000 Arrival Date: 07/01/2020 Time: 19:06 Bed 20 Private MD: ED Physician Denys Singer HPI: 07/01 19:37 This 20 yrs old Female presents to ER via Ambulatory with complaints of Heart tw4 Problem. 19:37 The patient presents with a history of heart racing, heart skipping beats. Context: The tw4 symptoms occur without known cause. Onset: The symptoms/episode began/occurred 1 week(s) ago. Duration: The patient or guardian reports a single episode. Modifying factors: The symptoms are aggravated by nothing. The symptoms are alleviated by nothing. The patient has not experienced similar symptoms in the past. 19:37 Associated signs and symptoms: The patient has no apparent associated signs or tw4 symptoms. Severity of symptoms: At their worst the symptoms were moderate in the emergency department the symptoms are unchanged. The patient has not recently seen a physician. 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 - Social history:: Smoking status: Patient denies any tobacco usage or history of. ROS: 19:37 Constitutional: Negative for fever, chills, and weight loss, Eyes: Negative for injury, tw4 pain, redness, and discharge, ENT: Negative for injury, pain, and discharge, Respiratory: Negative for shortness of breath, cough, wheezing, and pleuritic chest pain, Abdomen/GI: Negative for abdominal pain, nausea, vomiting, diarrhea, and constipation, Back: Negative for injury and pain, MS/Extremity: Negative for injury and deformity, Skin: Negative for injury, rash, and discoloration, Neuro: Negative for headache, weakness, numbness, tingling, and seizure. 19:37 Cardiovascular: Positive for palpitations, Negative for chest pain, edema, orthopnea, acute changes. Exam: 19:37 Constitutional: This is a well developed, well nourished patient who is awake, alert, tw4 and in no acute distress. Head/Face: Normocephalic, atraumatic. Chest/axilla: Normal chest wall appearance and motion. Nontender with no deformity. No lesions are appreciated. Cardiovascular: Regular rate and rhythm with a normal S1 and S2. No gallops, murmurs, or rubs. Normal PMI, no JVD. No pulse deficits. Respiratory: Lungs have equal breath sounds bilaterally, clear to auscultation and percussion. No rales, rhonchi or wheezes noted. No increased work of breathing, no retractions or nasal flaring. Abdomen/GI: Soft, non-tender, with normal bowel sounds. No distension or tympany. No guarding or rebound. No evidence of tenderness throughout. Back: No spinal tenderness. No costovertebral tenderness. Full range of motion. MS/ Extremity: Pulses equal, no cyanosis. Neurovascular intact. Full, normal range of motion. Neuro: Awake and alert, GCS 15, oriented to person, place, time, and situation. Cranial nerves II-XII grossly intact. Motor strength 5/5 in all extremities. Sensory grossly intact. Cerebellar exam normal. Normal gait. Vital Signs: 19:17 BP 132 / 70; Pulse 113; Resp 20; Temp 98.1(TE); Pulse Ox 100% on R/A; Weight 86.18 kg lp1 (R); Height 4 ft. 11 in. (149.86 cm); Pain 0/10; 20:05 BP 114 / 75; Pulse 88; Resp 16 S; Pulse Ox 100% on R/A; ca1 20:54 BP 101 / 71; Pulse 81; Resp 15 S; Pulse Ox 100% on R/A; ca1 19:17 Body Mass Index 38.37 (86.18 kg, 149.86 cm) lp1 MDM: 19:21 Patient medically screened. tw4 07/02 04:38 Differential diagnosis: arrythmia, dehydration, stress disorder. Data reviewed: vital tw4 signs, nurses notes. Data reviewed: lab test result(s), cardiac enzymes, CBC, hepatic panel, EKG. Data interpreted: Pulse oximetry: Interpretation: normal. Counseling: I had a detailed discussion with the patient and/or guardian regarding: the historical points, exam findings, and any diagnostic results supporting the discharge/admit diagnosis. Special discussion: I discussed with the patient/guardian in detail that at this point there is no indication for admission to the hospital. It is understood, however, that if the symptoms persist or worsen the patient needs to return immediately for re-evaluation. 07/01 19:22 Order name: Cardiac monitoring; Complete Time: 19:46 tw4 07/01 19:22 Order name: EKG - Nurse/Tech; Complete Time: :46 tw4 07/01 19:22 Order name: IV Saline Lock; Complete Time: :46 tw4 07/01 19:22 Order name: Labs collected and sent; Complete Time: :46 tw4 07/01 19:22 Order name: O2 Per Protocol; Complete Time: :46 tw4 07/01 19:22 Order name: O2 Sat Monitoring; Complete Time: 19:46 tw4 EC/04 20:18 Rate is 100 beats/min. Rhythm is regular, Normal Sinus Rhythm. QRS [place] is Normal. QRS tw4 interval is normal. QT interval is normal. No Q waves. No ST changes noted. Clinical impression: Normal ECG. Interpreted by me. Reviewed by me. Administered Medications: 20:47 Drug: TORadol - Ketorolac 15 mg Route: IVP; Site: right antecubital; ca1 20:58 Follow up: Response: No adverse reaction; Medication administered at discharge. ca1 Disposition: 07/01/20 20:42 Discharged to Home. Impression: Palpitations. - Condition is Stable. - Discharge Instructions: Palpitations. - Medication Reconciliation Form, Thank You Letter, Antibiotic Education, Prescription Opioid Use form. - Follow up: Private Physician; When: Upon discharge from the Emergency Department; Reason: Recheck today's complaints, Continuance of care, Re-evaluation by your physician. Follow up: George Agudelo MD; When: 1 week; Reason: Recheck today's complaints, Continuance of care, Re-evaluation by your physician. Follow up: Elijah Yanez MD; When: Upon discharge from the Emergency Department; Reason: Recheck today's complaints, Continuance of care, Re-evaluation by your physician. Follow up: Renato Cook MD; When: Upon discharge from the Emergency Department; Reason: Recheck today's complaints, Continuance of care, Re-evaluation by your physician. Signatures: Aury Estrada RN RN lp1 Denys Singer MD MD tw4 Mell Lopez RN RN ca1 Corrections: (The following items were deleted from the chart) 20:42 20:42 07/01/2020 20:42 Discharged to Home. Impression: Palpitations. Condition is tw4 Stable. Forms are Medication Reconciliation Form, Thank You Letter, Antibiotic Education, Prescription Opioid Use. Follow up: Private Physician; When: Upon discharge from the Emergency Department; Reason: Recheck today's complaints, Continuance of care, Re-evaluation by your physician. tw4 20:58 20:42 07/01/2020 20:42 Discharged to Home. Impression: Palpitations. Condition is ca1 Stable. Discharge Instructions: Palpitations. Forms are Medication Reconciliation Form, Thank You Letter, Antibiotic Education, Prescription Opioid Use. Follow up: Private Physician; When: Upon discharge from the Emergency Department; Reason: Recheck today's complaints, Continuance of care, Re-evaluation by your physician. Follow up: George Agudelo; When: 1 week; Reason: Recheck today's complaints, Continuance of care, Re-evaluation by your physician. Follow up: Elijah Yanez; When: Upon discharge from the Emergency Department; Reason: Recheck today's complaints, Continuance of care, Re-evaluation by your physician. Follow up: Renato Cook; When: Upon discharge from the Emergency Department; Reason: Recheck today's complaints, Continuance of care, Re-evaluation by your physician. tw4
--- NOTE | 2020-07-03 15:16 | ER ---
Nurse's Notes [facility] Name: Adelaide Trinidad Age: 20 yrs Sex: Female : 2000 Arrival Date: 07/01/2020 Time: 19:06 Bed 20 Private MD: Diagnosis: Palpitations Presentation: 07/01 19:17 Chief complaint: Patient states: States for the past week has been feeling like her lp1 heart is racing or skipping a beat; thought it was her anxiety, but did not feel the same;. Coronavirus screen: Client denies travel out of the [place] in the last 14 days. At this time, the client does not indicate any symptoms associated with coronavirus-19. Ebola Screen: No symptoms or risks identified at this time. Initial Sepsis Screen: Does the patient meet any 2 criteria? No. Patient's initial sepsis screen is negative. Does the patient have a suspected source of infection? No. Patient's initial sepsis screen is negative. Risk Assessment: Do you want to hurt yourself or someone else? Patient reports no desire to harm self or others. Onset of symptoms was July 01, 2020. 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 - Social history:: Smoking status: Patient denies any tobacco usage or history of. Screenin:20 Abuse screen: Denies threats or abuse. Denies injuries from another. Nutritional lp1 screening: No deficits noted. Tuberculosis screening: No symptoms or risk factors identified. Fall Risk None identified. Assessment: 19:25 General: Appears in no apparent distress. comfortable, Behavior is calm, cooperative, ca1 appropriate for age. Pain: Complains of pain in chest Pain does not radiate. Pain currently is 6 out of 10 on a pain scale. Quality of pain is described as tightness Pain began a week ago Is intermittent. Neuro: Level of Consciousness is awake, alert, obeys commands, Oriented to person, place, time, situation. Cardiovascular: Heart tones S1 S2 present Capillary refill < 3 seconds Patient's skin is warm and dry. Cardiovascular: Rhythm is sinus rhythm. Respiratory: Airway is patent Respiratory effort is even, unlabored, Respiratory pattern is regular, symmetrical, Breath sounds are clear bilaterally. GI: Abdomen is round non-distended, Bowel sounds present X 4 quads. Abd is soft and non tender X 4 quads. : No deficits noted. No signs and/or symptoms were reported regarding the genitourinary system. EENT: No deficits noted. No signs and/or symptoms were reported regarding the EENT system. Derm: Skin is intact, is healthy with good turgor, Skin is pink, warm \T\ dry. Musculoskeletal: Circulation, motion, and sensation intact. Capillary refill < 3 seconds. 20:38 Reassessment: Patient appears in no apparent distress at this time. Patient and/or ca1 family updated on plan of care and expected duration. Pain level reassessed. Patient is alert, oriented x 3, equal unlabored respirations, skin warm/dry/pink. 20:54 Reassessment: Patient appears in no apparent distress at this time. Patient is alert, ca1 oriented x 3, equal unlabored respirations, skin warm/dry/pink. Vital Signs: 19:17 BP 132 / 70; Pulse 113; Resp 20; Temp 98.1(TE); Pulse Ox 100% on R/A; Weight 86.18 kg lp1 (R); Height 4 ft. 11 in. (149.86 cm); Pain 0/10; 20:05 BP 114 / 75; Pulse 88; Resp 16 S; Pulse Ox 100% on R/A; ca1 20:54 BP 101 / 71; Pulse 81; Resp 15 S; Pulse Ox 100% on R/A; ca1 19:17 Body Mass Index 38.37 (86.18 kg, 149.86 cm) lp1 ED Course: 19:06 Patient arrived in ED. bp1 19:18 Triage completed. lp1 19:18 Arm band placed on right wrist. lp1 19:21 Denys Singer MD is Attending Physician. tw4 19:23 Mell Lopez, JAZ is Primary Nurse. ca1 19:25 Patient has correct armband on for positive identification. Placed in gown. Bed in low ca1 position. Call light in reach. Side rails up X2. environment artist on. Pulse ox on. NIBP on. Warm blanket given. 20:42 George Agudelo MD is Referral Physician. tw4 20:42 Elijah Yanez MD is Referral Physician. tw4 20:42 Renato Cook MD is Referral Physician. tw4 20:54 No provider procedures requiring assistance completed. IV discontinued, intact, ca1 bleeding controlled, No redness/swelling at site. Pressure dressing applied. Administered Medications: 20:47 Drug: TORadol - Ketorolac 15 mg Route: IVP; Site: right antecubital; ca1 20:58 Follow up: Response: No adverse reaction; Medication administered at discharge. ca1 Outcome: 20:42 Discharge ordered by . tw4 20:58 Discharged to home ambulatory. ca1 20:58 Condition: stable 20:58 Discharge instructions given to patient, Instructed on discharge instructions, follow up and referral plans. Demonstrated understanding of instructions, follow-up care. 20:58 Patient left the ED. ca1 Signatures: Aury Estrada, RN RN lp1 Denys Singer MD MD tw4 Mell Lopez RN RN ca1 LogankristinaNohelia davalos bp1
[2020-07-04 12:14] VITALS: TEMP 98.1; O2SAT 100
[2020-07-04 12:16] VITALS: BP 101/71
--- NOTE | 2020-07-05 20:06 | EKG ---
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
== END 2020-07-01 20:58 | disposition home or self-care (01) ==
LOC: ER 19:04
DX: R00.2 Palpitations (principal); F41.8 Other specified anxiety disorders; J45.909 Unspecified asthma, uncomplicated; Z88.1 Allergy status to other antibiotic agents; Z88.8 Allergy status to other drugs, medicaments and biological substances
CPT/HCPCS: 36415; 71045; 80048; 80076; 83735; 83880; 84443; 84484; 85025; 85379; 85610; 93005; 96374; 99284

== ENCOUNTER 2020-07-28 19:21 | Emergency (ER) | payer OTHER ==
--- NOTE | 2020-07-28 21:09 | ER ---
Nurse's Notes [facility] Name: Adelaide Trinidad Age: 20 yrs Sex: Female : 2000 Arrival Date: 07/28/2020 Time: 19:21 Bed 23 Private MD: Diagnosis: Contusion of right hand Presentation: 07/28 19:29 Chief complaint: Patient states: Punched a hard object twice today. Right hand and ll1 wrist pain since. Coronavirus screen: Client denies travel out of the [place] in the last 14 days. At this time, the client does not indicate any symptoms associated with coronavirus-19. Ebola Screen: Patient denies travel to an Ebola-affected area in the 21 days before illness onset. Initial Sepsis Screen: Does the patient meet any 2 criteria? No. Patient's initial sepsis screen is negative. Risk Assessment: Do you want to hurt yourself or someone else? Patient reports no desire to harm self or others. Onset of symptoms was July 28, 2020. 19:29 Method Of Arrival: Ambulatory 1 19:29 Acuity: LUIZ 4 ll1 21:35 Initial Sepsis Screen: Does the patient have a suspected source of infection? No. tl1 Patient's initial sepsis screen is negative. Triage Assessment: 21:35 General: Behavior is calm, cooperative, appropriate for age. 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 - Social history:: Smoking status: Patient denies any tobacco usage or history of. Screenin:50 Abuse screen: Denies threats or abuse. Denies injuries from another. Nutritional tl1 screening: No deficits noted. Tuberculosis screening: No symptoms or risk factors identified. Fall Risk None identified. Assessment: 20:49 General: Appears in no apparent distress. Pain: Complains of pain in right hand Pain tl1 currently is 10 out of 10 on a pain scale. Quality of pain is described as aching. Neuro: Level of Consciousness is awake, alert, obeys commands. Cardiovascular: No deficits noted. Respiratory: No deficits noted. GI: No deficits noted. : No deficits noted. Musculoskeletal: Circulation, motion, and sensation intact. Swelling present in right hand. Injury Description: blunt force. Vital Signs: 19:29 BP 118 / 96; Pulse 75; Resp 17; Temp 98.1; Pulse Ox 100% ; Weight 86.18 kg; Height 4 ll1 ft. 11 in. (149.86 cm); Pain 10/10; 21:34 BP 113 / 69; Pulse 68; Resp 17; Pulse Ox 100% ; Pain 6/10; tl1 19:29 Body Mass Index 38.37 (86.18 kg, 149.86 cm) ll1 ED Course: 19:21 Patient arrived in ED. cl3 19:30 Triage completed. ll1 19:31 Arm band placed on. ll1 19:35 Denys Singer MD is Attending Physician. tw4 20:37 Hand Right 2 View XRAY In Process Unspecified. EDMS 20:47 Porsche Enamorado, RN is Primary Nurse. tl1 21:30 No provider procedures requiring assistance completed. Patient did not have IV access tl1 during this emergency room visit. 21:35 Patient has correct armband on for positive identification. Bed in low position. Call tl1 light in reach. Administered Medications: 21:30 Drug: Ibuprofen 800 mg Route: PO; tl1 21:36 Follow up: Response: No adverse reaction; Medication administered at discharge. tl1 Outcome: 21:08 Discharge ordered by . tw4 21:34 Discharged to home ambulatory. tl1 21:34 Condition: good 21:34 Discharge instructions given to patient, Instructed on discharge instructions, follow up and referral plans. medication usage, Demonstrated understanding of instructions, follow-up care, medications, Prescriptions given X 1. 21:37 Patient left the ED. tl1 Signatures: Dispatcher [employer] EDME Porsche Enamorado, RN RN tl1 Denys Singer MD MD tw4 Mauro Bhardwaj cl3 Laura Bhardwaj RN RN ll1
--- NOTE | 2020-07-28 21:09 | EDPHYS ---
Physician Documentation [facility] Name: Adelaide Trinidad Age: 20 yrs Sex: Female : 2000 Arrival Date: 07/28/2020 Time: 19:21 Bed 23 Private MD: ED Physician Denys Singer HPI: 07/29 04:01 This 20 yrs old Female presents to ER via Ambulatory with complaints of Hand tw4 Injury. 04:01 The patient or guardian reports decreased range of motion, injury, pain. The complaints tw4 affect the right hand diffusely. Context: The problem was sustained at home, resulted from a direct blow, by a solid object, using own fist to strike. Onset: The symptoms/episode began/occurred just prior to arrival, today. Modifying factors: The symptoms are alleviated by nothing, the symptoms are aggravated by nothing. Associated signs and symptoms: The patient has no apparent associated signs or symptoms. Severity of symptoms: At their worst the symptoms were moderate, in the emergency department the symptoms are unchanged. The patient has not experienced similar symptoms in the past. 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 - Social history:: Smoking status: Patient denies any tobacco usage or history of. ROS: 07/29 04:01 Constitutional: Negative for fever, chills, and weight loss, Eyes: Negative for injury, tw4 pain, redness, and discharge, Cardiovascular: Negative for chest pain, palpitations, and edema, Respiratory: Negative for shortness of breath, cough, wheezing, and pleuritic chest pain, Abdomen/GI: Negative for abdominal pain, nausea, vomiting, diarrhea, and constipation, Skin: Negative for injury, rash, and discoloration, Neuro: Negative for headache, weakness, numbness, tingling, and seizure. MS/extremity: Positive for injury or acute deformity, decreased range of motion, swelling, tenderness, Negative for abrasion, bite, contusion, laceration. Exam: 04:10 Constitutional: This is a well developed, well nourished patient who is awake, alert, tw4 and in no acute distress. Head/Face: Normocephalic, atraumatic. Chest/axilla: Normal chest wall appearance and motion. Nontender with no deformity. No lesions are appreciated. Cardiovascular: Regular rate and rhythm with a normal S1 and S2. No gallops, murmurs, or rubs. Normal PMI, no JVD. No pulse deficits. Respiratory: Lungs have equal breath sounds bilaterally, clear to auscultation and percussion. No rales, rhonchi or wheezes noted. No increased work of breathing, no retractions or nasal flaring. Abdomen/GI: Soft, non-tender, with normal bowel sounds. No distension or tympany. No guarding or rebound. No evidence of tenderness throughout. Skin: Warm, dry with normal turgor. Normal color with no rashes, no lesions, and no evidence of cellulitis. Neuro: Awake and alert, GCS 15, oriented to person, place, time, and situation. Cranial nerves II-XII grossly intact. Motor strength 5/5 in all extremities. Sensory grossly intact. Cerebellar exam normal. Normal gait. 04:10 Musculoskeletal/extremity: Extremities: noted in the dorsum of right hand: decreased ROM, pain, swelling, tenderness. Vital Signs: 07/28 19:29 BP 118 / 96; Pulse 75; Resp 17; Temp 98.1; Pulse Ox 100% ; Weight 86.18 kg; Height 4 ll1 ft. 11 in. (149.86 cm); Pain 10/10; 21:34 BP 113 / 69; Pulse 68; Resp 17; Pulse Ox 100% ; Pain 6/10; tl1 19:29 Body Mass Index 38.37 (86.18 kg, 149.86 cm) ll1 MDM: 20:53 Patient medically screened. tw4 07/29 04:10 Differential diagnosis: dislocation. Data reviewed: vital signs, nurses notes. Data tw4 reviewed: radiologic studies, plain films. Data interpreted: Pulse oximetry: Interpretation: normal. Counseling: I had a detailed discussion with the patient and/or guardian regarding: the historical points, exam findings, and any diagnostic results supporting the discharge/admit diagnosis, radiology results. Special discussion: I discussed with the patient/guardian in detail that at this point there is no indication for admission to the hospital. It is understood, however, that if the symptoms persist or worsen the patient needs to return immediately for re-evaluation. 07/28 19:39 Order name: Hand Right 2 View XRAY tw4 07/28 21:12 Order name: Raffaele Wrap; Complete Time: 21:30 tw4 Administered Medications: 07/28 21:30 Drug: Ibuprofen 800 mg Route: PO; tl1 21:36 Follow up: Response: No adverse reaction; Medication administered at discharge. tl1 Disposition: 07/28/20 21:08 Discharged to Home. Impression: Contusion of right hand. - Condition is Stable. - Discharge Instructions: Hand Contusion, [id number]. - Prescriptions for Ibuprofen 800 mg Oral Tablet - take 1 tablet by ORAL route every 12 hours As needed take with food; 20 tablet. - Medication Reconciliation Form, Thank You Letter, Antibiotic Education, Prescription Opioid Use form. - Follow up: Private Physician; When: As needed; Reason: If symptoms return, Recheck today's complaints, Continuance of care, Re-evaluation by your physician. - Problem is new. - Symptoms have improved. Signatures: Dispatcher [employer] EDMS Porsche Enamorado RN RN tl1 Denys Singer MD MD tw4 Laura Bhardwaj RN RN ll1 Corrections: (The following items were deleted from the chart) 21:37 21:08 07/28/2020 21:08 Discharged to Home. Impression: Contusion of right hand. tl1 Condition is Stable. Forms are Medication Reconciliation Form, Thank You Letter, Antibiotic Education, Prescription Opioid Use. Follow up: Private Physician; When: As needed; Reason: If symptoms return, Recheck today's complaints, Continuance of care, Re-evaluation by your physician. Problem is new. Symptoms have improved. tw4
[2020-07-28] MEDS ORDERED: IBUPROFEN 400 MG TAB ONE (21:40)
[2020-07-28 21:54] VITALS: TEMP 98.1; O2SAT 100
[2020-07-28 22:11] VITALS: BP 113/69
--- NOTE | 2020-07-29 11:55 | RAD REPORT ---
EXAM DESCRIPTION: RAD - Hand Right 2 View - 07/28/2020 10:23 pm CLINICAL HISTORY: PAIN COMPARISON: No comparisons FINDINGS: No acute fracture or dislocation is seen.
== END 2020-07-28 21:37 | disposition home or self-care (01) ==
LOC: ER 19:21
DX: S60.221A Contusion of right hand, initial encounter (principal); W22.8XXA Striking against or struck by other objects, initial encounter; Y93.9 Activity, unspecified; Y92.009 Unspecified place in unspecified non-institutional (private) residence as the place of occurrence of the external cause; Z88.1 Allergy status to other antibiotic agents; Z88.8 Allergy status to other drugs, medicaments and biological substances
CPT/HCPCS: 99283

== ENCOUNTER 2020-08-15 17:01 | Emergency (ER) | payer OTHER ==
[2020-08-15 17:39] LABS: Urine Blood TRACE (NEG); Urine Glucose NEGATIVE (NEG); Urine Protein NEGATIVE (NEG)
[2020-08-15 17:53] LABS: Urine Bacteria <20 /HPF (<20); Urine RBC <5 /HPF (NONE SEEN)
[2020-08-15 17:54] LABS: Urine Culture Reflex Order REFLEXED
[2020-08-15 18:22] LABS: Absolute Lymphocytes (CBC) 1.4 K/uL (0.7-4.9); Basophils % 1.3 % (0-1.3); Hematocrit 38.3 % (36.0-45.0); Lymphocytes % 25.8 % (15.3-44.8); MPV 9.6 fL (7.6-11.3); RBC Red Blood Cell Count 4.32 M/uL (3.86-4.86)
[2020-08-15] MEDS ORDERED: KETOROLAC 30 MG/ML INJ ONE (18:32)
[2020-08-15 18:38] LABS: ALT/SGPT 12 U/L (12-78); AST/SGOT 9 U/L (15-37); Albumin 3.6 g/dL (3.4-5.0); Alkaline Phosphatase 74 U/L (45-117); BUN Blood Urea Nitrogen 5 mg/dL (7-18); Bicarbonate 24 mmol/L (21-32); Bilirubin Direct < 0.1 mg/dL (0-0.2); Bilirubin Total 0.2 mg/dL (0.2-1.0); Glucose Level 98 mg/dL (74-106); Lipase 57 U/L (73-393); Potassium 3.5 mmol/L (3.5-5.1); Protein, Total 7.2 g/dL (6.4-8.2); Sodium Level 141 mmol/L (136-145)
[2020-08-15] MEDS ORDERED: MORPHINE 2 MG/ML SYR ONE ×2 (19:09→19:59)
--- NOTE | 2020-08-15 19:47 | RAD REPORT ---
EXAM DESCRIPTION: US - Transvaginal Study Probe - 08/15/2020 7:36 pm CLINICAL HISTORY: left lower abdomen pain COMPARISON: Transvaginal Study Probe dated 10/02/2018 TECHNIQUE: Endovaginal sonography was performed. FINDINGS: Uterine size is normal. No myometrial mass identified. Thin endometrial stripe is seen wit h no endometrial mass, polyp or hematoma. Right ovary is identified and normal in size. Evaluation shows normal blood flow. Left ovary was obsc ured by bowel. No left adnexal mass identified. No blood or fluid in the cul de sac. IMPRESSION: No uterine, right ovarian or right adnexal abnormality. Left ovary obscured by bowel. No left adnexal mass.
--- NOTE | 2020-08-15 20:12 | RAD REPORT ---
EXAM DESCRIPTION: CT - Abdomen Pelvis W Contrast - 08/15/2020 8:04 pm CLINICAL HISTORY: ABD PAIN COMPARISON: Abdomen Pelvis W Contrast dated 04/17/2020 TECHNIQUE: Biphasic, helical CT imaging of the abdomen and pelvis was performed following 100 ml non -ionic IV contrast. No oral contrast given. All CT scans are performed using dose optimization technique as appropriate and may include automated exposure control or mA/KV adjustment according to patient size. FINDINGS: No suspicious findings in the lung bases. The liver, spleen, and pancreas show no suspicious findings. Gallbladder and biliary tree are also wi thout suspicious finding. Symmetric renal function is seen with no hydronephrosis or suspicious renal mass. No pyelonephritis o r acute parenchymal process. No bladder abnormalities. No adrenal abnormalities. No uterine or ovaria n suspicious findings. No dilated bowel loops or bowel wall thickening. Appendectomy clips are present. No active GI process . No free air, free fluid or inflammatory stranding. No mass or bulky lymphadenopathy. A minimal fat only umbilical hernia is present similar to comparison. No suspicious bony findings. IMPRESSION: Contrast enhanced CT abdomen and pelvis showing no acute or emergent finding. No significant change from April 17 imaging.
--- NOTE | 2020-08-15 20:32 | EDPHYS ---
Physician Documentation [facility] Name: Adelaide Trinidad Age: 20 yrs Sex: Female : 2000 Arrival Date: 08/15/2020 Time: 17:05 Bed 5 Private MD: ED Physician Luis Odell HPI: 08/15 17:45 This 20 yrs old Female presents to ER via Ambulatory with complaints of cp Abdominal Pain. 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 - Social history:: Smoking status: Patient denies any tobacco usage or history of. ROS: 17:50 Constitutional: Negative for body aches, chills, fever, poor PO intake. cp 17:50 Eyes: Negative for injury, pain, redness, and discharge. cp 17:50 Abdomen/GI: Positive for abdominal pain, Negative for vomiting, diarrhea, constipation, cp anorexia, black/tarry stool, rectal bleeding. 17:50 ENT: Negative for ear pain, sore throat, difficulty swallowing, difficulty handling cp secretions. 17:50 Cardiovascular: Negative for chest pain. 17:50 Respiratory: Negative for cough, shortness of breath, wheezing. 17:50 Back: Negative for pain at rest, pain with movement, radiated pain. 17:50 : Negative for urinary symptoms, vaginal bleeding, vaginal discharge. 17:50 Neuro: Negative for altered mental status, headache, weakness. 17:50 All other systems are negative. Exam: 17:55 Constitutional: The patient appears in no acute distress, alert, awake, non-toxic, well cp developed, well nourished, obese. 17:55 Head/Face: Normocephalic, atraumatic. cp 17:55 Eyes: Periorbital structures: appear normal, Conjunctiva: normal, no exudate, no injection, Sclera: no appreciated abnormality, Lids and lashes: appear normal, bilaterally. 17:55 ENT: External ear(s): are unremarkable, Nose: is normal, Posterior pharynx: Airway: no evidence of obstruction, patent. 17:55 Chest/axilla: Inspection: normal, Palpation: is normal, no crepitus, no tenderness. 17:55 Cardiovascular: Rate: normal, Rhythm: regular. 17:55 Respiratory: the patient does not display signs of respiratory distress, Respirations: normal, no use of accessory muscles, no retractions, labored breathing, is not present, Breath sounds: are clear throughout, no decreased breath sounds, no stridor, no wheezing. 17:55 Abdomen/GI: Inspection: abdomen appears normal, Bowel sounds: active, all quadrants, Palpation: soft, in all quadrants, moderate abdominal tenderness, in the left lower quadrant, rebound tenderness, is not appreciated, voluntary guarding, is elicited in the left lower quadrant. 17:55 Back: CVA tenderness, is absent. 20:30 : Pelvic Exam: The exam is refused by the patient/guardian. The risks and cp consequences are understood by the patient. Vital Signs: 17:13 BP 119 / 66; Pulse 96; Resp 20; Temp 99.2; Pulse Ox 99% ; Weight 86.18 kg; Height 4 ft. sv 11 in. (149.86 cm); Pain 8/10; 18:53 BP 117 / 64; Pulse 86; Resp 18; Pulse Ox 99% on R/A; ph 17:13 Body Mass Index 38.37 (86.18 kg, 149.86 cm) sv MDM: 17:21 Patient medically screened. cp 18:00 Differential diagnosis: appendicitis, bowel obstruction, cholecystitis, Cholelithiasis, cp diverticulitis, Ectopic , non-specific abd pain, Ovarian Torsion, Pelvic Inflammatory Disease, Pyelonephritis, Ureterolithiasis, urinary tract infection. 20:30 Data reviewed: vital signs, nurses notes, lab test result(s), radiologic studies, CT cp scan, ultrasound. 20:30 Counseling: I had a detailed discussion with the patient and/or guardian regarding: the cp historical points, exam findings, and any diagnostic results supporting the discharge/admit diagnosis, lab results, radiology results, the need for outpatient follow up, a family practitioner, to return to the emergency department if symptoms worsen or persist or if there are any questions or concerns that arise at home. Response to treatment: VSS. Pain improved. Radiology studies negative for acute findings. Will discharge to home for continued monitoring. 08/15 17:34 Order name: Urine Microscopic Only; Complete Time: 18:14 ss 08/15 18:14 Interpretation: Normal except: UWBC 5-10; SQEPI 5-10. cp 08/15 17:34 Order name: Urine Dipstick--Ancillary (enter results) bd 08/15 17:34 Order name: Urine --Ancillary (enter results) bd 08/15 17:39 Order name: Urine --Ancillary; Complete Time: 17:45 EDMS 08/15 17:39 Order name: Urine Dipstick-Ancillary; Complete Time: 17:45 EDMS 08/15 18:49 Interpretation: Normal except: UBLD TRACE; UESTR TRACE. 08/15 17:45 Order name: Basic Metabolic Panel; Complete Time: 18:48 cp 08/15 18:49 Interpretation: Normal except: CL 110; BUN 5; GFR 69. 08/15 17:45 Order name: CBC with Diff; Complete Time: 18:37 cp 08/15 18:37 Interpretation: Reviewed. 08/15 17:45 Order name: Hepatic Function; Complete Time: 18:48 cp 08/15 18:49 Interpretation: Normal except: AST 9; GLOB 3.6; A/G 1.0. 08/15 17:45 Order name: Lipase; Complete Time: 18:48 cp 08/15 17:55 Order name: Urine Culture EDIA 08/15 18:14 Order name: US Transvaginal Study (Probe); Complete Time: 19:52 cp 08/15 19:52 Interpretation: Reviewed report. 08/15 19:51 Order name: CT Abd/Pelvis - IV Contrast Only; Complete Time: 20:28 cp 08/15 17:21 Order name: Urine Dipstick-Ancillary (obtain specimen); Complete Time: 17:37 cp 08/15 17:21 Order name: Urine Test (obtain specimen); Complete Time: 17:37 cp 08/15 17:45 Order name: IV Saline Lock; Complete Time: 18:22 cp 08/15 17:45 Order name: Labs collected and sent; Complete Time: 18:22 cp Administered Medications: 18:22 Drug: TORadol - Ketorolac 15 mg Route: IVP; Site: right antecubital; ph 18:53 Follow up: Response: No adverse reaction ph 18:59 Drug: morphine 2 mg Route: IVP; Site: right antecubital; ph 19:45 Drug: morphine 2 mg Route: IVP; Site: right antecubital; sg Disposition: 08/16 11:00 Co-signature as Attending Physician, Luis Odell MD I agree with the assessment and kdr plan of care. Disposition: 08/15/20 20:31 Discharged to Home. Impression: Lower abdominal pain, unspecified - left. - Condition is Stable. - Discharge Instructions: Abdominal Pain, Adult. - Prescriptions for Bentyl 20 mg Oral Tablet - take 1 tablet by ORAL route every 6 hours As needed; 30 tablet. Zofran 4 mg Oral Tablet - take 1 tablet by ORAL route every 12 hours As needed; 20 tablet. - Work release form, Medication Reconciliation Form, Thank You Letter, Antibiotic Education, Prescription Opioid Use form. - Follow up: Private Physician; When: 1 - 2 days; Reason: Recheck today's complaints. - Problem is new. - Symptoms have improved. Signatures: Dispatcher [employer] Anamika Forte, RN RN sv Cristino Corona RN JAZ sg Luis Odell MD MD kdr Aria Hernandez RN RN bb Lainey Guzmán RN RN ph Princess, TONY Velazco cp Corrections: (The following items were deleted from the chart) 08/15 20:31 20:31 08/15/2020 20:31 Discharged to Home. Impression: Pain localized to other parts of cp lower abdomen - left. Condition is Stable. Forms are Medication Reconciliation Form, Thank You Letter, Antibiotic Education, Prescription Opioid Use. Follow up: Private Physician; When: 1 - 2 days; Reason: Recheck today's complaints. Problem is new. Symptoms have improved. cp 20:45 20:31 08/15/2020 20:31 Discharged to Home. Impression: Lower abdominal pain, bb unspecified - left. Condition is Stable. Forms are Medication Reconciliation Form, Thank You Letter, Antibiotic Education, Prescription Opioid Use. Follow up: Private Physician; When: 1 - 2 days; Reason: Recheck today's complaints. Problem is new. Symptoms have improved. cp
--- NOTE | 2020-08-15 20:32 | ER ---
Nurse's Notes [facility] Name: Adelaide Trinidad Age: 20 yrs Sex: Female : 2000 Arrival Date: 08/15/2020 Time: 17:05 Bed 5 Private MD: Diagnosis: Lower abdominal pain, unspecified-left Presentation: 08/15 17:12 Chief complaint: Patient states: LLQ pain started last night. Denies sv n/v/d/constipation. Coronavirus screen: Client denies travel out of the [place] in the last 14 days. At this time, the client does not indicate any symptoms associated with coronavirus-19. Ebola Screen: No symptoms or risks identified at this time. Risk Assessment: Do you want to hurt yourself or someone else? Patient reports no desire to harm self or others. Onset of symptoms was August 14, 2020. 17:12 Method Of Arrival: Ambulatory sv 17:12 Acuity: LUIZ 3 sv 17:13 Initial Sepsis Screen: Does the patient meet any 2 criteria? HR > 90 bpm. No. Patient's sv initial sepsis screen is negative. Does the patient have a suspected source of infection? No. Patient's initial sepsis screen is negative. 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 - Social history:: Smoking status: Patient denies any tobacco usage or history of. Screenin:36 Abuse screen: Denies threats or abuse. Denies injuries from another. Nutritional ph screening: No deficits noted. Tuberculosis screening: No symptoms or risk factors identified. Fall Risk None identified. Assessment: 17:35 General: Appears in no apparent distress. uncomfortable, Behavior is calm, cooperative, ph appropriate for age. Pain: Complains of pain in left lower quadrant. Neuro: Level of Consciousness is awake, alert, obeys commands, Oriented to person, place, time, situation. Cardiovascular: Capillary refill < 3 seconds in bilateral fingers Patient's skin is warm and dry. Respiratory: Airway is patent Respiratory effort is even, unlabored. GI: Abdomen is round non-distended, Reports lower abdominal pain, Patient currently denies diarrhea, nausea, vomiting. : Reports pain in left lower quadrant(s) Denies burning with urination. Derm: Skin is intact, is healthy with good turgor, Skin is pink, warm \T\ dry. Musculoskeletal: Circulation, motion, and sensation intact. Range of motion: intact in all extremities. 18:49 Reassessment: Patient appears in no apparent distress at this time. Patient and/or ph family updated on plan of care and expected duration. Pain level reassessed. Patient is alert, oriented x 3, equal unlabored respirations, skin warm/dry/pink. Vital Signs: 17:13 BP 119 / 66; Pulse 96; Resp 20; Temp 99.2; Pulse Ox 99% ; Weight 86.18 kg; Height 4 ft. sv 11 in. (149.86 cm); Pain 8/10; 18:53 BP 117 / 64; Pulse 86; Resp 18; Pulse Ox 99% on R/A; ph 17:13 Body Mass Index 38.37 (86.18 kg, 149.86 cm) sv ED Course: 17:05 Patient arrived in ED. mr 17:12 Triage completed. sv 17:12 Arm band placed on. sv 17:16 Lainey Guzmán, RN is Primary Nurse. ph 17:16 Juan A Sánchez PA is PHCP. cp 17:16 Luis Odell MD is Attending Physician. cp 17:36 Patient has correct armband on for positive identification. Bed in low position. Call ph light in reach. Side rails up X 1. Pulse ox on. NIBP on. Door closed. Noise minimized. Warm blanket given. 18:09 Urine --Ancillary (enter results) Sent. sv 18:09 Urine Dipstick--Ancillary (enter results) Sent. sv 18:09 Urine Culture Sent. sv 19:05 Primary Nurse role handed off by Lainey Guzmán, JAZ sg 19:05 Cristino Corona, JAZ is Primary Nurse. sg 19:37 US Transvaginal Study (Probe) In Process Unspecified. EDMS 20:04 CT Abd/Pelvis - IV Contrast Only In Process Unspecified. EDMS Administered Medications: 18:22 Drug: TORadol - Ketorolac 15 mg Route: IVP; Site: right antecubital; ph 18:53 Follow up: Response: No adverse reaction ph 18:59 Drug: morphine 2 mg Route: IVP; Site: right antecubital; ph 19:45 Drug: morphine 2 mg Route: IVP; Site: right antecubital; sg Outcome: 20:31 Discharge ordered by MD. delaney 20:45 Patient left the ED. bb Signatures: Dispatcher [employer] Anamika Forte RN RN sv Gay, Steven, RN RN sg Juli Sifuentes mr MaryAria RN RN bb Hall, Patricia, RN RN ph Juan A Sánchez PA PA cp Corrections: (The following items were deleted from the chart) 17:15 17:13 Initial Sepsis Screen: Does the patient meet any 2 criteria? No. Patient's sv initial sepsis screen is negative. Does the patient have a suspected source of infection? No. Patient's initial sepsis screen is negative. sv 17:15 17:13 Resp 20bpm; Pulse Ox 99%; Temp 99.2F; 86.18 kg; Height 4 ft. 11 in.; BMI: 38.3; svsv
[2020-08-15 23:12] VITALS: TEMP 99.2; O2SAT 99
[2020-08-15 23:14] VITALS: BP 117/64
== END 2020-08-15 20:45 | disposition home or self-care (01) ==
LOC: ER 17:01
DX: R10.30 Lower abdominal pain, unspecified (principal); Z88.1 Allergy status to other antibiotic agents; Z88.8 Allergy status to other drugs, medicaments and biological substances
CPT/HCPCS: 87088; 85025; 87086; 80048; 36415; 81025; 80076; 83690; 74177; 76830; 96375; 96374; 99284; Q9967; J2270 ×2; 81003; 81015

== ENCOUNTER 2020-10-11 20:54 | Emergency (ER) | payer OTHER ==
--- NOTE | 2020-10-11 21:51 | ER ---
[facility] Name: Adelaide Trinidad Age: 20 yrs Sex: Female : 2000 Arrival Date: 10/11/2020 Time: 20:56 Bed 17 Private MD: Diagnosis: Pain in right leg;Pain in right hip-chronic Presentation: 10/11 21:05 Chief complaint: Patient states: has had bursitis/cyst in the right groin, has been em dealing with this for several months, has been falling 2-3 times, c/o right hip, right thigh, right calf pain after falling today. Coronavirus screen: Client denies travel out of the [place] in the last 14 days. Ebola Screen: Patient negative for fever greater than or equal to 101.5 degrees Fahrenheit, and additional compatible Ebola Virus Disease symptoms Patient denies exposure to infectious person. Patient denies travel to an Ebola-affected area in the 21 days before illness onset. No symptoms or risks identified at this time. Initial Sepsis Screen: Does the patient meet any 2 criteria? No. Patient's initial sepsis screen is negative. Does the patient have a suspected source of infection? No. Patient's initial sepsis screen is negative. Risk Assessment: Do you want to hurt yourself or someone else? Patient reports no desire to harm self or others. Onset of symptoms was October 11, 2020. 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 - Social history:: Smoking status: Patient denies any tobacco usage or history of. Screenin:15 Abuse screen: Denies threats or abuse. Denies injuries from another. Nutritional wh screening: No deficits noted. Tuberculosis screening: No symptoms or risk factors identified. Fall Risk Fall in past 12 months (25 points). Assessment: 21:15 General: Appears in no apparent distress. Behavior is calm, cooperative, appropriate wh for age. Pain: Complains of pain in right leg and right hip Pain does not radiate. Pain currently is 4 out of 10 on a pain scale. Is intermittent. Neuro: Level of Consciousness is awake, alert, obeys commands, Oriented to person, place, time, situation, Appropriate for age. Cardiovascular: Capillary refill < 3 seconds. Respiratory: Airway is patent Respiratory effort is even, unlabored, Respiratory pattern is regular, symmetrical. GI: Abdomen is flat, non-distended. : No signs and/or symptoms were reported regarding the genitourinary system. EENT: No signs and/or symptoms were reported regarding the EENT system. Derm: Skin is intact, is healthy with good turgor, Skin is pink, warm \T\ dry. normal. Musculoskeletal: Circulation, motion, and sensation intact. Vital Signs: 21:05 BP 139 / 94; Pulse 85; Resp 20; Temp 98.1; Pulse Ox 98% on R/A; Weight 86.18 kg; Height em 4 ft. 11 in. (149.86 cm); Pain 9/10; 22:00 BP 124 / 88; Pulse 82; Resp 18; Pulse Ox 99% on R/A; wh 21:05 Body Mass Index 38.37 (86.18 kg, 149.86 cm) em ED Course: 20:56 Patient arrived in ED. cl3 21:09 Triage completed. em 21:09 Arm band placed on. em 21:10 Sahara Lynn [facility]C [facility]. kb 21:10 Denys Singer MD is Attending Physician. kb 21:14 Reyna Whitehead is Primary Nurse. wh 21:15 Patient has correct armband on for positive identification. Bed in low position. Call light in reach. Side rails up X 1. Pulse ox on. NIBP on. 21:49 Femur Right XRAY In Process Unspecified. EDMS 21:49 Tib Fib Right XRAY In Process Unspecified. EDMS 22:04 No provider procedures requiring assistance completed. Patient did not have IV access during this emergency room visit. Administered Medications: No medications were administered Outcome: 21:50 Discharge ordered by . kb 22:05 Discharged to home via wheelchair. wh 22:05 Condition: stable 22:05 Discharge instructions given to patient, Instructed on discharge instructions, follow up and referral plans. no drinking with medication, no driving heavy equipment, medication usage, POC Demonstrated understanding of instructions, follow-up care, medications, POC Prescriptions given X 2. 22:06 Patient left the ED. wh Signatures: Dispatcher [employer] Sahara Gillespie, EYEGLASS CUTTER-C KIARA-Anthony Vail, RN RN Reyna Patel Charde cl3
--- NOTE | 2020-10-11 21:51 | EDPHYS ---
Physician Documentation [facility] Name: Adelaide Trinidad Age: 20 yrs Sex: Female : 2000 Arrival Date: 10/11/2020 Time: 20:56 Bed 17 Private MD: ED Physician Denys Singer HPI: 10/11 21:19 This 20 yrs old Female presents to ER via Ambulatory with complaints of Hip kb Pain. 21:19 The patient or guardian reports pain. that occurred at home, sustained from a chronic kb condition, There is no obvious deformity, The patient is able to self ambulate. The patient is able to bear their full body weight. The patient's discomfort radiates to the right leg. The complaints affect the right leg. Onset: The symptoms/episode began/occurred 1 year(s) ago, and became worse 2 week(s) ago. Modifying factors: The symptoms are alleviated by nothing, the symptoms are aggravated by nothing. Associated signs and symptoms: Loss of consciousness: the patient experienced no loss of consciousness, Pertinent positives: None. Severity of symptoms: At their worst the symptoms were moderate, in the emergency department the symptoms are unchanged. The patient has experienced similar episodes in the past, chronically. The patient has not recently seen a physician. Pt reports she has had right hip pain for years and has always had problems with it including falls. States she has been falling more frequently due to pain and now the pain goes from her hip to calf. 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 - Social history:: Smoking status: Patient denies any tobacco usage or history of. ROS: 21:19 Constitutional: Negative for fever, chills, and weight loss, Cardiovascular: Negative kb for chest pain, palpitations, and edema, Respiratory: Negative for shortness of breath, cough, wheezing, and pleuritic chest pain, Abdomen/GI: Negative for abdominal pain, nausea, vomiting, diarrhea, and constipation, Skin: Negative for injury, rash, and discoloration, Neuro: Negative for headache, weakness, numbness, tingling, and seizure. 21:19 MS/extremity: Positive for pain, of the right leg. Exam: 21:19 Constitutional: This is a well developed, well nourished patient who is awake, alert, kb and in no acute distress. Head/Face: Normocephalic, atraumatic. Chest/axilla: Normal chest wall appearance and motion. Nontender with no deformity. No lesions are appreciated. Cardiovascular: Regular rate and rhythm with a normal S1 and S2. No gallops, murmurs, or rubs. Normal PMI, no JVD. No pulse deficits. Respiratory: Lungs have equal breath sounds bilaterally, clear to auscultation and percussion. No rales, rhonchi or wheezes noted. No increased work of breathing, no retractions or nasal flaring. Abdomen/GI: Soft, non-tender, with normal bowel sounds. No distension or tympany. No guarding or rebound. No evidence of tenderness throughout. Skin: Warm, dry with normal turgor. Normal color with no rashes, no lesions, and no evidence of cellulitis. MS/ Extremity: Pulses equal, no cyanosis. Neurovascular intact. Full, normal range of motion. Neuro: Awake and alert, GCS 15, oriented to person, place, time, and situation. Cranial nerves II-XII grossly intact. Motor strength 5/5 in all extremities. Sensory grossly intact. Cerebellar exam normal. Normal gait. Vital Signs: 21:05 BP 139 / 94; Pulse 85; Resp 20; Temp 98.1; Pulse Ox 98% on R/A; Weight 86.18 kg; Height em 4 ft. 11 in. (149.86 cm); Pain 9/10; 22:00 BP 124 / 88; Pulse 82; Resp 18; Pulse Ox 99% on R/A; wh 21:05 Body Mass Index 38.37 (86.18 kg, 149.86 cm) em MDM: 21:10 Patient medically screened. kb 21:19 Data reviewed: vital signs, nurses notes. Data interpreted: Pulse oximetry: on room air kb is 98 %. Interpretation: normal. 21:19 Counseling: I had a detailed discussion with the patient and/or guardian regarding: the kb historical points, exam findings, and any diagnostic results supporting the discharge/admit diagnosis, radiology results, the need for outpatient follow up, a family practitioner, to return to the emergency department if symptoms worsen or persist or if there are any questions or concerns that arise at home. 10/11 21:17 Order name: Femur Right XRAY kb 10/11 21:17 Order name: Tib Fib Right XRAY kb Administered Medications: No medications were administered Disposition: 10/12 03:15 Co-signature as Attending Physician, Denys Singer MD I agree with the assessment and tw4 plan of care. Disposition: 10/11/20 21:50 Discharged to Home. Impression: Pain in right leg, Pain in right hip - chronic. - Condition is Stable. - Discharge Instructions: Musculoskeletal Pain. - Prescriptions for Ibuprofen 800 mg Oral Tablet - take 1 tablet by ORAL route every 8 hours As needed take with food; 30 tablet. Cyclobenzaprine 10 mg Oral Tablet - take 1 tablet by ORAL route every 8 hours As needed; 21 tablet. - Medication Reconciliation Form, Thank You Letter, Antibiotic Education, Prescription Opioid Use form. - Follow up: Emergency Department; When: As needed; Reason: Worsening of condition. Follow up: Private Physician; When: 2 - 3 days; Reason: Recheck today's complaints, Continuance of care, Re-evaluation by your physician. Signatures: Dispatcher [employer] Sahara Gillespie, HOUSESMITH-C HOUSESMITH-Anthony Vail, RN RN Reyna Patel Terrence, MD MD tw4 Corrections: (The following items were deleted from the chart) 10/11 22:06 21:50 10/11/2020 21:50 Discharged to Home. Impression: Pain in right leg; Pain in right wh hip - chronic. Condition is Stable. Forms are Medication Reconciliation Form, Thank You Letter, Antibiotic Education, Prescription Opioid Use. Follow up: Emergency Department; When: As needed; Reason: Worsening of condition. Follow up: Private Physician; When: 2 - 3 days; Reason: Recheck today's complaints, Continuance of care, Re-evaluation by your physician. kb
--- NOTE | 2020-10-12 08:24 | RAD REPORT ---
EXAM DESCRIPTION: RAD - Tib Fib Right - 10/11/2020 9:49 pm CLINICAL HISTORY: PAIN COMPARISON: No comparisons FINDINGS: No bone or joint abnormality is detected.
--- NOTE | 2020-10-12 08:24 | RAD REPORT ---
EXAM DESCRIPTION: RAD - Femur Right - 10/11/2020 9:49 pm CLINICAL HISTORY: PAIN Fall, pain COMPARISON: No comparisons FINDINGS: No acute fracture or dislocation seen. No aggressive marrow lesion.
[2020-10-13 21:18] VITALS: TEMP 98.1
[2020-10-13 21:19] VITALS: BP 124/88; O2SAT 99
== END 2020-10-11 22:06 | disposition home or self-care (01) ==
LOC: ER 20:54
DX: M25.551 Pain in right hip (principal); M79.604 Pain in right leg; Z88.1 Allergy status to other antibiotic agents; Z88.8 Allergy status to other drugs, medicaments and biological substances
CPT/HCPCS: 99283

== ENCOUNTER 2020-11-11 17:23 | Emergency (ER) | payer BC, OTHER ==
--- OUTSIDE RECORDS SUMMARY | 2020-11-11 17:53 | XMS REPORT | Clinical Summary ---
:2000 Author Organization [facility] Address [address] [place] [id number] Care Team Providers Name Role Phone Gissell Sampson MD, Alina Primary Care Provider Allergies Active Allergy Reactions Severity Noted Date Comments Azithromycin Palpitations Low 06/28/2018 Sulfamethoxazole-Trimethoprim 05/04/2019 Doxycycline GI Intolerance 06/28/2018 Medications No known medications Active Problems Problem Noted Date Iliopsoas bursitis of right hip 10/01/2019 Synovial cyst of hip 10/01/2019 Overview: RT HIP Surgical History Surgery Date Site/Laterality Comments APPENDECTOMY ABDOMINAL SURGERY 04/10/2018 Energency appe ndectomy Medical History Medical History Date Comments Asthma Family History Medical History Relation Name Comments Diabetes Maternal Grandfather Elias Judge Diabetes Mother Jamaica Trinidad Relation Name Status Comments Maternal Grandfather Elias Judge Mother [place] Trinidad Social History Tobacco Use Types Packs/Day Years Used Date Never Smoker 0 0 Smokeless Tobacco: Never Used Alcohol Use Drinks/Week oz/Week Comments No Sex Assigned at Date Recorded Female 04/10/2019 2:53 PM CDT Last Filed Vital Signs Not on file Plan of Treatment Health Maintenance Due Date Last Done Comments CHLAMYDIA SCREENING 2015 COVID-19 VACCINE (1 of 2) 2015 CERVICAL CANCER SCREENING 01/21/2020 INFLUENZA VACCINE 05/28/2020 Results Not on fileafter 11/11/2019 Advance Directives For more information, please contact: [phone] Type Date Recorded Patient Wrecking [employer]ic Explanati on Advance Directives, Living Will 06/28/2018 5:29 PM and Medical Power of Director [employer]
[2020-11-11] MEDS ORDERED: METHYLPREDNISOLONE 125 MG INJ ONE (18:21)
[2020-11-11] MEDS ORDERED: LEVALBUTEROL 1.25 MG/3 ML NEB ONE ×2 (18:21→20:50)
[2020-11-11] MEDS ORDERED: MAGNESIUM SULFATE 1 gm IVPB 1 GM/100 ML BAG IV ONE (18:22)
[2020-11-11] MEDS ORDERED: MORPHINE 2 MG/ML SYR ONE (20:45)
[2020-11-11] MEDS ORDERED: KETOROLAC 30 MG/ML INJ ONE (20:45)
--- NOTE | 2020-11-11 21:07 | ER ---
Nurse's Notes [facility] Name: Adelaide Trinidad Age: 20 yrs Sex: Female : 2000 Arrival Date: 11/11/2020 Time: 17:24 Bed 2 Private MD: Diagnosis: Unspecified asthma with (acute) exacerbation Presentation: 11/11 17:38 Chief complaint: Patient states: Asthma exacerbation with wheezing/SOB for 1 day. ll1 Diagnosed with bronchitis 10 days ago, covid negative last week. No fever. Coronavirus screen: Client denies travel out of the [place] in the last 14 days. difficulty breathing, Client presents with at least one sign or symptom that may indicate coronavirus-19. Standard/surgical mask placed on the client. The client reports previous COVID testing was negative. Ebola Screen: Patient denies travel to an Ebola-affected area in the 21 days before illness onset. Initial Sepsis Screen: Does the patient meet any 2 criteria? HR > 90 bpm. No. Patient's initial sepsis screen is negative. Does the patient have a suspected source of infection? Yes: Productive cough/pneumonia. Risk Assessment: Do you want to hurt yourself or someone else? Patient reports no desire to harm self or others. Onset of symptoms was November 11, 2020. 17:38 Method Of Arrival: Ambulatory [facility] 17:38 Acuity: LUIZ 3 ll1 Triage Assessment: 17:41 General: Appears in no apparent distress. Behavior is calm, cooperative, appropriate ll1 for age. Pain: Complains of pain in generalized chest Pain currently is 7 out of 10 on a pain scale. Quality of pain is described as aching. Neuro: No deficits noted. Cardiovascular: Reports chest pain, Heart tones S1 S2 Capillary refill < 3 seconds Clubbing of nail beds is absent JVD is absent Patient's skin is warm and dry. Respiratory: Reports shortness of breath Airway is patent Trachea midline Respiratory effort is even, unlabored, Respiratory pattern is regular, symmetrical, Breath sounds are clear. Historical: - Allergies: 17:40 Doxycycline; ll1 17:40 Zithromax; ll1 17:40 Bactrim; ll1 17:40 Zosyn; ll1 - PMHx: 17:40 Anxiety; Asthma; Depression; HYPOGLYCEMIA; scoliosis; ll1 - PSHx: 17:40 Appendectomy; ll1 - Immunization history:: Flu vaccine is not up to date. - Social history:: Smoking status: Patient denies any tobacco usage or history of. Screenin:55 Abuse screen: Denies threats or abuse. Nutritional screening: No deficits noted. aa5 Tuberculosis screening: No symptoms or risk factors identified. Fall Risk None identified. Assessment: 17:50 General: Appears uncomfortable, Behavior is calm, cooperative. Pain: Complains of pain aa5 in chest Pain currently is 7 out of 10 on a pain scale. Quality of pain is described as pressure. Neuro: Level of Consciousness is awake, alert, obeys commands, Oriented to person, place, time, situation. Cardiovascular: Patient's skin is warm and dry. Respiratory: Reports shortness of breath cough that is dry, Airway is patent Respiratory effort is labored, Respiratory pattern is regular, symmetrical, Breath sounds are diminished bilaterally. GI: No signs and/or symptoms were reported involving the gastrointestinal system. : No signs and/or symptoms were reported regarding the genitourinary system. EENT: No signs and/or symptoms were reported regarding the EENT system. Derm: Skin is pink, warm \T\ dry. Musculoskeletal: Range of motion: intact in all extremities. 18:40 Reassessment: Patient is alert, oriented x 3, equal unlabored respirations, skin aa5 warm/dry/pink. Patient states feeling better. PA notified of wheezing. . Respiratory: Breath sounds with wheezes bilaterally. 20:07 Reassessment: patient complained of right rib pain and mild wheezing but said it's mg2 better than before. Vital Signs: 17:38 BP 134 / 47; Pulse 100; Resp 18; Temp 98.3; Pulse Ox 99% on R/A; Weight 88.45 kg; ll1 Height 4 ft. 11 in. (149.86 cm); Pain 7/10; 20:08 BP 112 / 67; Resp 20; Pulse Ox 99% on R/A; mg2 17:38 Body Mass Index 39.38 (88.45 kg, 149.86 cm) ll1 ED Course: 17:24 Patient arrived in ED. ds1 17:40 Triage completed. ll1 17:41 Arm band placed on Patient placed in an exam room, on a stretcher. ll1 17:44 Gabino Andres PA is PHCP. [facility] 17:44 Luis Odell MD is Attending Physician. [facility] 17:44 Jesi Peterson, JAZ is Primary Nurse. aa5 17:50 Patient has correct armband on for positive identification. Bed in low position. Call aa5 light in reach. Side rails up X 1. Pulse ox on. NIBP on. 18:00 Inserted saline lock: 20 gauge in left antecubital area, using aseptic technique. aa5 19:00 Report given to JAZ Schroeder and JAZ Baker. aa5 21:25 No provider procedures requiring assistance completed. IV discontinued, intact, rr5 bleeding controlled, No redness/swelling at site. Pressure dressing applied. Administered Medications: 18:10 Drug: SOLU-Medrol 125 mg Route: IVP; Site: left antecubital; aa5 18:15 Follow up: Response: No adverse reaction aa5 18:12 Drug: Magnesium Sulfate 1 grams Route: IVPB; Infused Over: 1 hrs; Site: left aa5 antecubital; 19:10 Follow up: Response: No adverse reaction; IV Status: Completed infusion; IV Intake: rr5 100ml 18:12 Drug: Xopenex (3) 1.25 mg Route: Inhalation; aa5 18:40 Follow up: Response: No adverse reaction; Marked relief of symptoms aa5 20:36 Drug: morphine 2 mg Route: IVP; Site: left antecubital; mg2 21:20 Follow up: Response: No adverse reaction; Pain is decreased; RASS: Alert and Calm (0) rr5 20:36 Drug: TORadol 30 mg Route: IVP; Site: left antecubital; mg2 21:30 Follow up: Response: No adverse reaction rr5 20:36 Drug: Xopenex (3) 1.25 mg Route: Inhalation; mg2 Intake: 19:10 IV: 100ml; Total: 100ml. rr5 Outcome: 21:06 Discharge ordered by . heather 21:29 Discharged to home ambulatory. rr5 21:29 Condition: stable 21:29 Discharge instructions given to patient, Instructed on discharge instructions, follow up and referral plans. medication usage, Demonstrated understanding of instructions, follow-up care, medications, Prescriptions given X 2. 21:32 Patient left the ED. rr5 Signatures: Sahara Lynn, LEAD LOADER-C LEAD LOADER-Ckb MicGabino dexter PA PA jmm Sanford, Magy ds1 Jesi Peterson, RN RN aa5 Samuel Bundy, RN RN mg2 Alexandre Alvarez, RN RN rr5 Laura Bhardwaj, RN RN ll1
--- NOTE | 2020-11-11 21:07 | EDPHYS ---
Physician Documentation [facility] Name: Adelaide Trinidad Age: 20 yrs Sex: Female : 2000 Arrival Date: 11/11/2020 Time: 17:24 Bed 2 Private MD: ED Physician Luis Odell HPI: 11/11 18:43 This 20 yrs old Female presents to ER via Ambulatory with complaints of jmm Asthma Exacerbation. 18:43 The patient presents to the emergency department with wheezing, Current therapy: jmm albuterol inhaler. Onset: The symptoms/episode began/occurred gradually, 1 week(s) ago. Modifying factors: The symptoms are alleviated by nothing, the symptoms are aggravated by nothing. Associated signs and symptoms: Pertinent negatives: chest pain, fever, vomiting. The patient has experienced similar episodes in the past. This is a 20 year old female with a history of asthma, depression, that presents to the ED with complaints of cough, wheezing beginning approx 2 weeks ago. Symptoms resolved but return approx 1 week ago. Denies fever but has had a productive cough. . Historical: - Allergies: 17:40 Doxycycline; ll1 17:40 Zithromax; ll1 17:40 Bactrim; ll1 17:40 Zosyn; ll1 - PMHx: 17:40 Anxiety; Asthma; Depression; HYPOGLYCEMIA; scoliosis; ll1 - PSHx: 17:40 Appendectomy; ll1 - Immunization history:: Flu vaccine is not up to date. - Social history:: Smoking status: Patient denies any tobacco usage or history of. ROS: 18:43 Constitutional: Negative for fever, chills, and weight loss, Cardiovascular: Negative jm for chest pain, palpitations, and edema. 18:43 Respiratory: Positive for cough, shortness of breath, wheezing. 18:43 All other systems are negative. Exam: 18:43 Constitutional: This is a well developed, well nourished patient who is awake, alert, jmm and in no acute distress. Head/Face: atraumatic. Eyes: EOMI, no conjunctival erythema appreciated ENT: Moist Mucus Membranes Neck: Trachea midline, Supple Chest/axilla: Normal chest wall appearance and motion. Cardiovascular: Regular rate and rhythm. No edema appreciated 18:43 Back: Normal ROM Skin: General appearance color normal MS/ Extremity: Moves all extremities, no obvious deformities appreciated, no edema noted to the lower extremities Neuro: Awake and alert, normal gait Psych: Behavior is normal, Mood is normal, Patient is cooperative and pleasant 18:43 Respiratory: the patient does not display signs of respiratory distress, Respirations: normal, Breath sounds: wheezing: that is mild, is scattered. Vital Signs: 17:38 BP 134 / 47; Pulse 100; Resp 18; Temp 98.3; Pulse Ox 99% on R/A; Weight 88.45 kg; ll1 Height 4 ft. 11 in. (149.86 cm); Pain 7/10; 20:08 BP 112 / 67; Resp 20; Pulse Ox 99% on R/A; mg2 17:38 Body Mass Index 39.38 (88.45 kg, 149.86 cm) ll1 MDM: 17:46 Patient medically screened. [facility] 20:25 Data reviewed: vital signs, nurses notes. Counseling: I had a detailed discussion with isha the patient and/or guardian regarding: the historical points, exam findings, and any diagnostic results supporting the discharge/admit diagnosis, the need for outpatient follow up, to return to the emergency department if symptoms worsen or persist or if there are any questions or concerns that arise at home. 11/11 17:50 Order name: IV; Complete Time: 18:03 aa5 Administered Medications: 18:10 Drug: SOLU-Medrol 125 mg Route: IVP; Site: left antecubital; aa5 18:15 Follow up: Response: No adverse reaction aa5 18:12 Drug: Magnesium Sulfate 1 grams Route: IVPB; Infused Over: 1 hrs; Site: left aa5 antecubital; 19:10 Follow up: Response: No adverse reaction; IV Status: Completed infusion; IV Intake: rr5 100ml 18:12 Drug: Xopenex (3) 1.25 mg Route: Inhalation; aa5 18:40 Follow up: Response: No adverse reaction; Marked relief of symptoms aa5 20:36 Drug: morphine 2 mg Route: IVP; Site: left antecubital; mg2 21:20 Follow up: Response: No adverse reaction; Pain is decreased; RASS: Alert and Calm (0) rr5 20:36 Drug: TORadol 30 mg Route: IVP; Site: left antecubital; mg2 21:30 Follow up: Response: No adverse reaction rr5 20:36 Drug: Xopenex (3) 1.25 mg Route: Inhalation; mg2 Disposition: 11/12 14:27 Co-signature as Attending Physician, Luis Odell MD I agree with the assessment and kdr plan of care. Disposition: 11/11/20 21:06 Discharged to Home. Impression: Unspecified asthma with (acute) exacerbation. - Condition is Stable. - Discharge Instructions: Asthma, Adult. - Prescriptions for Prednisone 20 mg Oral Tablet - take 3 tablet by ORAL route once daily for 5 days; 15 tablet. Albuterol Sulfate 90 mcg/actuation - inhale 1-2 puff by INHALATION route every 4-6 hours; 1 Inhaler. - Medication Reconciliation Form, Thank You Letter, Antibiotic Education, Prescription Opioid Use form. - Follow up: Private Physician; When: 2 - 3 days; Reason: Recheck today's complaints, Continuance of care, Re-evaluation by your physician. Signatures: Sahara Lynn, KIARA-Maulik CRAIG-Luis Garcia MD MD kdr Mickail, Joel, PA PA jmm Calderon, Audri, RN RN aa5 Samuel Bundy RN RN mg2 Alexandre Alvarez RN RN rr5 Laura Bhardwaj RN RN ll1 Corrections: (The following items were deleted from the chart) 11/11 21:32 21:06 11/11/2020 21:06 Discharged to Home. Impression: Unspecified asthma with (acute) rr5 exacerbation. Condition is Stable. Discharge Instructions: Asthma, Adult. Prescriptions for Prednisone 20 mg Oral Tablet - take 3 tablet by ORAL route once daily for 5 days; 15 tablet, Albuterol Sulfate 90 mcg/actuation - inhale 1-2 puff by INHALATION route every 4-6 hours; 1 Inhaler. and Forms are Medication Reconciliation Form, Thank You Letter, Antibiotic Education, Prescription Opioid Use. Follow up: Private Physician; When: 2 - 3 days; Reason: Recheck today's complaints, Continuance of care, Re-evaluation by your physician. kb
[2020-11-11 21:45] VITALS: TEMP 98.3; O2SAT 99
[2020-11-11 21:46] VITALS: BP 112/67
== END 2020-11-11 21:32 | disposition home or self-care (01) ==
LOC: ER 17:23
DX: J45.901 Unspecified asthma with (acute) exacerbation (principal); Z88.1 Allergy status to other antibiotic agents; Z88.8 Allergy status to other drugs, medicaments and biological substances
CPT/HCPCS: 96365; 96375; 99284; J3475; J2270; J2930

== ENCOUNTER 2020-12-16 17:38 | Emergency (ER) | payer BC ==
[2020-12-16] MEDS ORDERED: METHYLPREDNISOLONE 125 MG INJ ONE (18:38)
[2020-12-16] MEDS ORDERED: DIPHENHYDRAMINE 50 MG/ML VIAL ONE (18:38)
[2020-12-16] MEDS ORDERED: FAMOTIDINE 20 MG/2 ML VIAL IV ONE (18:38)
--- NOTE | 2020-12-16 18:46 | EDPHYS ---
Physician Documentation [facility] Name: Adelaide Trinidad Age: 20 yrs Sex: Female : 2000 Arrival Date: 12/16/2020 Time: 17:39 Bed 10 Private MD: Corby Burnett B ED Physician Luis Odell HPI: 12/16 17:57 This 20 yrs old Female presents to ER via Ambulatory with complaints of kdr Allergic Reaction. 17:57 The patient presents with itching, rash, swelling of the lips. Onset: The kdr symptoms/episode began/occurred suddenly, just prior to arrival. Associated signs and symptoms: The patient has no apparent associated signs or symptoms. Possible causes: The patient has no known obvious cause for the symptoms. At home the patient or guardian has treated the symptoms with Benadryl. Severity of symptoms: At their worst the symptoms were moderate in the emergency department the symptoms are unchanged. The patient has not experienced similar symptoms in the past. The patient has not recently seen a physician. Historical: - Allergies: 17:45 Bactrim; iw 17:45 Doxycycline; iw 17:45 Zithromax; iw 17:45 Zosyn; iw - PMHx: 17:45 Anxiety; Asthma; Depression; HYPOGLYCEMIA; scoliosis; iw - PSHx: 17:45 Appendectomy; iw - Immunization history:: Adult Immunizations not up to date. - Social history:: Smoking status: Patient denies any tobacco usage or history of. ROS: 17:57 Constitutional: Negative for fever, chills, and weight loss, Eyes: Negative for injury, kdr pain, redness, and discharge, ENT: Negative for injury, pain, and discharge, Neck: Negative for injury, pain, and swelling, Cardiovascular: Negative for chest pain, palpitations, and edema, Respiratory: Negative for shortness of breath, cough, wheezing, and pleuritic chest pain, Abdomen/GI: Negative for abdominal pain, nausea, vomiting, diarrhea, and constipation, Back: Negative for injury and pain, : Negative for injury, bleeding, discharge, and swelling, MS/Extremity: Negative for injury and deformity, Neuro: Negative for headache, weakness, numbness, tingling, and seizure activity. Psych: Negative for depression, anxiety, suicide ideation, homicidal ideation, and hallucinations, Endocrine: Negative for neck swelling, polydipsia, polyuria, polyphagia, and marked weight changes, Hematologic/Lymphatic: Negative for swollen nodes, abnormal bleeding, and unusual bruising. 17:57 Skin: Positive for rash, diffusely, Itching, Negative for 17:57 Allergy/Immunology: Positive for allergies, hives, diffusely, Itching. Exam: 17:57 Constitutional: This is a well developed, well nourished patient who is awake, alert, kdr and in mild distress. Head/Face: Normocephalic, atraumatic. Eyes: Pupils equal round and reactive to light, extra-ocular motions intact. Lids and lashes normal. Conjunctiva and sclera are non-icteric and not injected. Cornea within normal limits. Periorbital areas with no swelling, redness, or edema. Neck: Trachea midline, no thyromegaly or masses palpated, and no cervical lymphadenopathy. Supple, full range of motion without nuchal rigidity, or vertebral point tenderness. No Meningismus. Chest/axilla: Normal chest wall appearance and motion. Nontender with no deformity. No lesions are appreciated. Cardiovascular: Regular rate and rhythm with a normal S1 and S2. No gallops, murmurs, or rubs. Normal PMI, no JVD. No pulse deficits. Abdomen/GI: Soft, non-tender, with normal bowel sounds. No distension or tympany. No guarding or rebound. No evidence of tenderness throughout. Back: No spinal tenderness. No costovertebral tenderness. Full range of motion. Skin: Warm, dry with normal turgor. Normal color with no rashes, no lesions, and no evidence of cellulitis. MS/ Extremity: Pulses equal, no cyanosis. Neurovascular intact. Full, normal range of motion. Neuro: Awake and alert, GCS 15, oriented to person, place, time, and situation. Cranial nerves II-XII grossly intact. Motor strength 5/5 in all extremities. Sensory grossly intact. Cerebellar exam normal. Normal gait. Psych: Awake, alert, with orientation to person, place and time. Behavior, mood, and affect are within normal limits. 17:57 Respiratory: mild respiratory distress is noted, Respirations: normal, Breath sounds: wheezing: inspiratory expiratory that is mild, is heard diffusely. Vital Signs: 17:43 BP 126 / 69; Pulse 115; Resp 16; Temp 98.7; Pulse Ox 100% on R/A; Weight 86.18 kg; iw Height 4 ft. 11 in. (149.86 cm); 18:38 Pulse 99; Resp 18 S; Pulse Ox 100% on R/A; aa5 17:43 Body Mass Index 38.37 (86.18 kg, 149.86 cm) iw MDM: 18:46 Patient medically screened. kdr 18:49 Data reviewed: vital signs, nurses notes. Counseling: I had a detailed discussion with kdr the patient and/or guardian regarding: the historical points, exam findings, and any diagnostic results supporting the discharge/admit diagnosis, the need for outpatient follow up. ED course: The patient was much improved with the interventions given. She was happy with the care provided and the plan for discharge and follow-up. Administered Medications: 18:25 Drug: SOLU-Medrol 125 mg Route: IVP; Site: left antecubital; aa5 18:37 Follow up: Response: No adverse reaction aa5 18:25 Drug: Benadryl 25 mg Route: IVP; Site: left antecubital; aa5 18:37 Follow up: Response: No adverse reaction aa5 18:25 Drug: Pepcid 20 mg Route: IVP; Site: left antecubital; aa5 18:38 Follow up: Response: No adverse reaction aa5 Disposition: 12/16/20 18:46 Discharged to Home. Impression: Acute Allergic Reaction: Unknown cause. - Condition is Stable. - Discharge Instructions: Hives, [id number], Allergies, [id number]. - Prescriptions for Benadryl 25 mg Oral Capsule - take 1 capsule by ORAL route every 6 hours As needed; 15 tablet. Prednisone 20 mg Oral Tablet - take 2 tablets by ORAL route once daily for 3 days; 6 tablet. - Medication Reconciliation Form, Thank You Letter form. - Follow up: Corby Burnett MD; When: 2 - 3 days; Reason: If symptoms return, Further diagnostic work-up, Recheck today's complaints, Continuance of care, Re-evaluation by your physician. - Problem is new. - Symptoms have improved. Signatures: Luis Odell MD MD kdr Natalie Paredes RN RN Jesi Peterson RN RN aa5 Corrections: (The following items were deleted from the chart) 19:19 18:46 12/16/2020 18:46 Discharged to Home. Impression: Acute Allergic Reaction: Unknown iw cause. Condition is Stable. Forms are Medication Reconciliation Form, Thank You Letter, Antibiotic Education, Prescription Opioid Use. Follow up: Corby Burnett; When: 2 - 3 days; Reason: If symptoms return, Further diagnostic work-up, Recheck today's complaints, Continuance of care, Re-evaluation by your physician. Problem is new. Symptoms have improved. kdr
--- NOTE | 2020-12-16 18:46 | ER ---
Nurse's Notes [facility] Name: Adelaide Trinidad Age: 20 yrs Sex: Female : 2000 Arrival Date: 12/16/2020 Time: 17:39 Bed 10 Private MD: Corby Burnett B Diagnosis: Acute Allergic Reaction: Unknown cause Presentation: 12/16 17:43 Chief complaint: Patient states: started breaking ot in hives around 5:00, took a iw Benadryl and hives on her arms have gotten better, also took a tramadol about an hour before she started itching, has had tramadol in past without a reaction, face is still very itchy. Coronavirus screen: At this time, the client does not indicate any symptoms associated with coronavirus-19. Ebola Screen: Patient negative for fever greater than or equal to 101.5 degrees Fahrenheit, and additional compatible Ebola Virus Disease symptoms Patient denies exposure to infectious person. Patient denies travel to an Ebola-affected area in the 21 days before illness onset. No symptoms or risks identified at this time. Onset: The symptoms/episode began/occurred 1 hour(s) ago. Anaphylaxis evaluation, no signs or symptoms of anaphylaxis were noted. Initial Sepsis Screen: Does the patient meet any 2 criteria? No. Patient's initial sepsis screen is negative. Does the patient have a suspected source of infection? No. Patient's initial sepsis screen is negative. Risk Assessment: Do you want to hurt yourself or someone else? Patient reports no desire to harm self or others. Onset of symptoms was December 16, 2020. 17:43 Method Of Arrival: Ambulatory iw 17:43 Acuity: LUIZ 3 iw Historical: - Allergies: 17:45 Bactrim; iw 17:45 Doxycycline; iw 17:45 Zithromax; iw 17:45 Zosyn; iw - PMHx: 17:45 Anxiety; Asthma; Depression; HYPOGLYCEMIA; scoliosis; iw - PSHx: 17:45 Appendectomy; iw - Immunization history:: Adult Immunizations not up to date. - Social history:: Smoking status: Patient denies any tobacco usage or history of. Screenin:46 Abuse screen: Denies threats or abuse. Denies injuries from another. Nutritional iw screening: No deficits noted. Tuberculosis screening: No symptoms or risk factors identified. Fall Risk None identified. Assessment: 17:46 General: Appears in no apparent distress. Behavior is calm, cooperative. Pain: Denies iw pain. Respiratory: Airway is patent Respiratory effort is even, unlabored. Derm: Rash noted that is red, on face and neck. 18:37 Reassessment: Patient is alert, oriented x 3, equal unlabored respirations, skin aa5 warm/dry/pink. Patient states feeling better. itching has improved. . Vital Signs: 17:43 BP 126 / 69; Pulse 115; Resp 16; Temp 98.7; Pulse Ox 100% on R/A; Weight 86.18 kg; iw Height 4 ft. 11 in. (149.86 cm); 18:38 Pulse 99; Resp 18 S; Pulse Ox 100% on R/A; aa5 17:43 Body Mass Index 38.37 (86.18 kg, 149.86 cm) iw ED Course: 17:39 Patient arrived in ED. ag5 17:39 Corby Burnett MD is Private Physician. ag5 17:45 Triage completed. iw 17:46 Arm band placed on. iw 17:51 Natalie Paredes, JAZ is Primary Nurse. iw 17:52 Luis Odell MD is Attending Physician. kdr 18:10 Missed attempt(s): 22 gauge in right upper arm. Bleeding controlled, band aid applied, iw catheter tip intact. 18:20 Inserted saline lock: 20 gauge in left antecubital area, using aseptic technique. aa5 18:45 Corby Burnett MD is Referral Physician. kdr 19:19 No provider procedures requiring assistance completed. IV discontinued, intact, iw bleeding controlled, No redness/swelling at site. Pressure dressing applied. Administered Medications: 18:25 Drug: SOLU-Medrol 125 mg Route: IVP; Site: left antecubital; aa5 18:37 Follow up: Response: No adverse reaction aa5 18:25 Drug: Benadryl 25 mg Route: IVP; Site: left antecubital; aa5 18:37 Follow up: Response: No adverse reaction aa5 18:25 Drug: Pepcid 20 mg Route: IVP; Site: left antecubital; aa5 18:38 Follow up: Response: No adverse reaction aa5 Outcome: 18:46 Discharge ordered by . kdr 19:19 Discharged to home ambulatory. iw 19:19 Condition: good 19:19 Discharge instructions given to patient, Instructed on discharge instructions, follow up and referral plans. medication usage, Demonstrated understanding of instructions, follow-up care, medications, Prescriptions given X 2. 19:19 Patient left the ED. Signatures: Luis Odell MD MD kdr Williams, Irene, RN RN iw Calderon, Audri, RN RN Garrett Patrick Remi
[2020-12-16 19:29] VITALS: BP 126/69; TEMP 98.7; O2SAT 100
== END 2020-12-16 19:19 | disposition home or self-care (01) ==
LOC: ER 17:38
DX: R21 Rash and other nonspecific skin eruption (principal); T78.40XA Allergy, unspecified, initial encounter; X58.XXXA Exposure to other specified factors, initial encounter; Z88.1 Allergy status to other antibiotic agents; Z88.3 Allergy status to other anti-infective agents
CPT/HCPCS: 96375; 96374; 99283; J1200; J2930

== ENCOUNTER 2020-12-17 20:18 | Emergency (ER) | payer BC ==
[2020-12-17] MEDS ORDERED: DIPHENHYDRAMINE 25 MG TAB/CAP ONE (21:10)
[2020-12-17] MEDS ORDERED: predniSONE 20 MG TAB ONE (21:11)
[2020-12-17] MEDS ORDERED: FAMOTIDINE 20 MG TAB ONE (21:11)
--- NOTE | 2020-12-17 22:40 | EDPHYS ---
Physician Documentation [facility] Name: Adelaide Trinidad Age: 20 yrs Sex: Female : 2000 Arrival Date: 12/17/2020 Time: 20:20 Bed 25 Private MD: ED Physician Geovanny Jean HPI: 12/17 21:02 This 20 yrs old Female presents to ER via Ambulatory with complaints of mh7 Allergic Reaction. 21:02 The patient presents with itching, rash, that is diffuse. Onset: The symptoms/episode mh7 began/occurred yesterday. Associated signs and symptoms: Pertinent positives: hives, rash, Pertinent negatives: abdominal pain, Altered mental status chest pain, dysphagia, fever, headache, Light headed nausea, shortness of breath, swelling, Syncope vomiting. 21:03 Possible causes: The patient has no known obvious cause for the symptoms. At home the mh7 patient or guardian has treated the symptoms with Benadryl. Severity of symptoms: At their worst the symptoms were moderate yesterday, in the emergency department the symptoms are unchanged. The patient has been recently seen at the [facility] Emergency Department, yesterday. Patient was treated here yesterday for same complaint and improved. She noticed recurrence of rash and itching mostly on her face this evening. She took Benadryl but has not taken the Prednisone today.. 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 - Social history:: Smoking status: Patient denies any tobacco usage or history of. ROS: 21:03 Constitutional: Negative for fever, chills, and weight loss, Eyes: Negative for injury, mh7 pain, redness, and discharge, ENT: Negative for injury, pain, and discharge, Neck: Negative for injury, pain, and swelling, Cardiovascular: Negative for chest pain, palpitations, and edema, Respiratory: Negative for shortness of breath, cough, wheezing, and pleuritic chest pain, Abdomen/GI: Negative for abdominal pain, nausea, vomiting, diarrhea, and constipation, Back: Negative for injury and pain, : Negative for injury, bleeding, discharge, and swelling, MS/Extremity: Negative for injury and deformity, Neuro: Negative for headache, weakness, numbness, tingling, and seizure, Psych: Negative for depression, anxiety, suicide ideation, homicidal ideation, and hallucinations, Endocrine: Negative for neck swelling, polydipsia, polyuria, polyphagia, and marked weight changes, Hematologic/Lymphatic: Negative for swollen nodes, abnormal bleeding, and unusual bruising. Exam: 21:03 Constitutional: This is a well developed, well nourished patient who is awake, alert, mh7 and in no acute distress. 21:03 Eyes: Pupils equal round and reactive to light, extra-ocular motions intact. Lids and lashes normal. Conjunctiva and sclera are non-icteric and not injected. Cornea within normal limits. Periorbital areas with no swelling, redness, or edema. ENT: Nares patent. No nasal discharge, no septal abnormalities noted. Tympanic membranes are normal and external auditory canals are clear. Oropharynx with no redness, swelling, or masses, exudates, or evidence of obstruction, uvula midline. Mucous membranes moist. Neck: Trachea midline, no thyromegaly or masses palpated, and no cervical lymphadenopathy. Supple, full range of motion without nuchal rigidity, or vertebral point tenderness. No Meningismus. Chest/axilla: Normal chest wall appearance and motion. Nontender with no deformity. No lesions are appreciated. 21:03 Respiratory: Lungs have equal breath sounds bilaterally, clear to auscultation and percussion. No rales, rhonchi or wheezes noted. No increased work of breathing, no retractions or nasal flaring. Abdomen/GI: Soft, non-tender, with normal bowel sounds. No distension or tympany. No guarding or rebound. No evidence of tenderness throughout. Back: No spinal tenderness. No costovertebral tenderness. Full range of motion. 21:03 MS/ Extremity: Pulses equal, no cyanosis. Neurovascular intact. Full, normal range of motion. Neuro: Awake and alert, GCS 15, oriented to person, place, time, and situation. Cranial nerves II-XII grossly intact. Motor strength 5/5 in all extremities. Sensory grossly intact. Cerebellar exam normal. Normal gait. Psych: Awake, alert, with orientation to person, place and time. Behavior, mood, and affect are within normal limits. 21:03 Head/face: Noted is rash, that is urticarial. 21:03 Cardiovascular: Rate: tachycardic, Rhythm: regular, Pulses: no pulse deficits are appreciated, Heart sounds: normal, normal S1and S2, Edema: is not appreciated, JVD: is not appreciated. 21:03 Skin: urticaria, on the face and abdomen. Vital Signs: 20:28 BP 143 / 72; Pulse 118; Resp 18; Temp 98.7(O); Pulse Ox 98% on R/A; Weight 86.18 kg lp1 (R); Height 4 ft. 11 in. (149.86 cm); 22:33 Pulse 90; Resp 18; Pulse Ox 98% ; mg2 20:28 Body Mass Index 38.37 (86.18 kg, 149.86 cm) lp1 MDM: 22:34 Differential diagnosis: anaphylaxis, angioedema, urticaria, Allergic Reaction. [facility] 22:35 Data reviewed: vital signs, nurses notes, old medical records. Data interpreted: Pulse mh7 oximetry: on room air is 98 %. Interpretation: normal. Counseling: I had a detailed discussion with the patient and/or guardian regarding: the historical points, exam findings, and any diagnostic results supporting the discharge/admit diagnosis, the need for outpatient follow up, to return to the emergency department if symptoms worsen or persist or if there are any questions or concerns that arise at home. Response to treatment: the patient's symptoms have resolved after treatment, the patient's blood pressure is in an acceptable range, mental status has returned to baseline, the patient no longer shows bradycardia, the patient is not short of breath, the patient is not tachycardic, the patient's pain is gone, the patient's temperature has normalized, the patient is now symptom free, patient is well hydrated. ED course: Well appearing, NAD, VSS. No complaints. Tolerating oral intake without difficulty. Patient requests to be discharged from the ED at this time. She will take the medication previously prescribed including Prednisone.. 22:39 Patient medically screened. 7 Administered Medications: 20:55 Drug: Pepcid 20 mg Route: PO; mg2 22:33 Follow up: Response: No adverse reaction mg2 20:55 Drug: Benadryl 25 mg Route: PO; mg2 22:33 Follow up: Pulse 90 bpm; Resp 18 bpm; Pulse Ox 98% mg2 20:56 Drug: predniSONE 60 mg Route: PO; mg2 22:33 Follow up: Response: No adverse reaction mg2 Disposition: 12/17/20 22:39 Discharged to Home. Impression: Allergic Reaction, Urticaria. - Condition is Stable. - Discharge Instructions: Hives, [id number]. - Medication Reconciliation Form, Thank You Letter, Antibiotic Education, Prescription Opioid Use form. - Follow up: Private Physician; When: 1 - 2 days; Reason: Worsening of condition, Recheck today's complaints, Continuance of care, Re-evaluation by your physician. - Problem is an ongoing problem. - Symptoms have improved. Signatures: Aury Estrada RN RN lp1 Samuel Bundy RN RN mg2 Geovanny Jean MD MD mh7 Corrections: (The following items were deleted from the chart) 22:48 22:39 12/17/2020 22:39 Discharged to Home. Impression: Allergic Reaction; Urticaria. mg2 Condition is Stable. Forms are Medication Reconciliation Form, Thank You Letter, Antibiotic Education, Prescription Opioid Use. Follow up: Private Physician; When: 1 - 2 days; Reason: Worsening of condition, Recheck today's complaints, Continuance of care, Re-evaluation by your physician. Problem is an ongoing problem. Symptoms have improved. 7
--- NOTE | 2020-12-17 22:40 | ER ---
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 Coronavirus screen: Client denies travel out of the [place] in the last 14 days. At this time, the client does not indicate any symptoms associated with coronavirus-19. Ebola Screen: No symptoms or risks identified at this time. Onset: The symptoms/episode began/occurred gradually. Anaphylaxis evaluation, no signs or symptoms of anaphylaxis were noted. Initial Sepsis Screen: Does the patient meet any 2 criteria? No. Patient's initial sepsis screen is negative. Does the patient have a suspected source of infection? No. Patient's initial sepsis screen is negative. Risk Assessment: Do you want to hurt yourself or someone else? Patient reports no desire to harm self or others. Onset of symptoms was December 17, 2020 at 16:00. 20:28 Method Of Arrival: Ambulatory lp1 20:28 Acuity: LUIZ 3 lp1 Triage Assessment: 20:35 General: Appears in no apparent distress. Neuro: Level of Consciousness is awake, lp1 alert, obeys commands. Respiratory: Airway is patent Respiratory effort is even, unlabored, Breath sounds are clear bilaterally. slight wheeze to lower lobes. Derm: Skin is flushed. 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 - Social history:: Smoking status: Patient denies any tobacco usage or history of. Screenin:35 Abuse screen: Denies threats or abuse. Denies injuries from another. Nutritional lp1 screening: No deficits noted. Tuberculosis screening: No symptoms or risk factors identified. Fall Risk None identified. Assessment: 20:55 General: Appears in no apparent distress. comfortable, Behavior is calm, cooperative. mg2 Pain: Denies pain. Neuro: Level of Consciousness is awake, alert, obeys commands, Oriented to person, place, time, situation. Cardiovascular: Capillary refill < 3 seconds Patient's skin is warm and dry. Respiratory: Airway is patent Respiratory effort is even, unlabored, Respiratory pattern is regular, symmetrical. GI: No signs and/or symptoms were reported involving the gastrointestinal system. : No signs and/or symptoms were reported regarding the genitourinary system. EENT: No signs and/or symptoms were reported regarding the EENT system. Derm: Skin is intact, is healthy with good turgor, Skin is pink, warm \T\ dry. normal. Derm: Reports itching. Musculoskeletal: Circulation, motion, and sensation intact. Capillary refill < 3 seconds. 22:32 Reassessment: Patient appears in no apparent distress at this time. Patient and/or mg2 family updated on plan of care and expected duration. Pain level reassessed. Patient is alert, oriented x 3, equal unlabored respirations, skin warm/dry/pink. Patient denies pain at this time. Patient states feeling better. Respiratory: No deficits noted. Vital Signs: 20:28 BP 143 / 72; Pulse 118; Resp 18; Temp 98.7(O); Pulse Ox 98% on R/A; Weight 86.18 kg lp1 (R); Height 4 ft. 11 in. (149.86 cm); 22:33 Pulse 90; Resp 18; Pulse Ox 98% ; mg2 20:28 Body Mass Index 38.37 (86.18 kg, 149.86 cm) lp1 ED Course: 20:20 Patient arrived in ED. bp1 20:33 Triage completed. lp1 20:34 Arm band placed on. lp1 20:37 Geovanny Jean MD is Attending Physician. mh7 20:49 Samuel Bundy, RN is Primary Nurse. mg2 22:32 Patient has correct armband on for positive identification. mg2 22:32 No provider procedures requiring assistance completed. Patient did not have IV access mg2 during this emergency room visit. Administered Medications: 20:55 Drug: Pepcid 20 mg Route: PO; mg2 22:33 Follow up: Response: No adverse reaction mg2 20:55 Drug: Benadryl 25 mg Route: PO; mg2 22:33 Follow up: Pulse 90 bpm; Resp 18 bpm; Pulse Ox 98% mg2 20:56 Drug: predniSONE 60 mg Route: PO; mg2 22:33 Follow up: Response: No adverse reaction mg2 Outcome: 22:39 Discharge ordered by . mh7 22:47 Discharged to home ambulatory. mg2 22:47 Condition: stable 22:47 Discharge instructions given to patient, Instructed on discharge instructions, follow up and referral plans. Demonstrated understanding of instructions, follow-up care. 22:48 Patient left the ED. mg2 Signatures: Aury Estrada RN RN lp1 Samuel Bundy, JAZ RN mg2 [facility] Geovanny Jean MD MD [facility]
[2020-12-17 22:55] VITALS: BP 143/72; TEMP 98.7; O2SAT 98
== END 2020-12-17 22:48 | disposition home or self-care (01) ==
LOC: ER 20:18
DX: L50.9 Urticaria, unspecified (principal); F41.8 Other specified anxiety disorders; J45.909 Unspecified asthma, uncomplicated; Z88.1 Allergy status to other antibiotic agents; Z88.8 Allergy status to other drugs, medicaments and biological substances
CPT/HCPCS: 99283; J7512

== ENCOUNTER 2021-01-02 23:53 | Emergency (ER) | payer BC ==
[2021-01-03 01:32] LABS: Basophils % 0.9 % (0-1.3); Hematocrit 34.3 % (36.0-45.0); Lymphocytes % 22.6 % (15.3-44.8); RBC Red Blood Cell Count 3.72 M/uL (3.86-4.86)
[2021-01-03] MEDS ORDERED: MORPHINE 4 MG/ML SYR ONE (01:40)
[2021-01-03] MEDS ORDERED: ONDANSETRON 4 MG/2 ML VIAL ONE (01:40)
[2021-01-03] MEDS ORDERED: NA CHLORIDE 0.9% 1,000 ML ONE (01:40)
[2021-01-03 01:47] LABS: ALT/SGPT 16 U/L (12-78); AST/SGOT 8 U/L (15-37); Albumin 3.5 g/dL (3.4-5.0); Alkaline Phosphatase 66 U/L (45-117); BUN Blood Urea Nitrogen 9 mg/dL (7-18); Bicarbonate 22 mmol/L (21-32); Bilirubin Direct < 0.1 mg/dL (0-0.2); Bilirubin Total 0.2 mg/dL (0.2-1.0); Glucose Level 104 mg/dL (74-106); Lipase 72 U/L (73-393); Potassium 3.6 mmol/L (3.5-5.1); Protein, Total 7.2 g/dL (6.4-8.2); Sodium Level 140 mmol/L (136-145)
[2021-01-03 02:12] LABS: Urine Blood NEGATIVE (NEG); Urine Glucose NEGATIVE (NEG); Urine Protein NEGATIVE (NEG); Urine Specific Gravity 1.025 (1.005-1.030); Urine pH 6.5 (5.0-7.0)
[2021-01-03 02:13] LABS: Urine Specific Gravity 1.025 (1.005-1.030)
--- NOTE | 2021-01-03 03:29 | ER ---
Nurse's Notes [facility] Name: Adelaide Trinidad Age: 20 yrs Sex: Female : 2000 Arrival Date: 01/02/2021 Time: 23:55 Bed 5 Private MD: Diagnosis: Pyelonephritis Presentation: 01/03 00:11 Chief complaint: Patient states: she is having left lower abdominal pain radiating to bb her back for several days and she is having burning with urination denies vomiting or diarrhea has tried OTC meds but the pain is getting worse. Coronavirus screen: At this time, the client does not indicate any symptoms associated with coronavirus-19. Ebola Screen: No symptoms or risks identified at this time. Initial Sepsis Screen: Does the patient meet any 2 criteria? No. Patient's initial sepsis screen is negative. Does the patient have a suspected source of infection? No. Patient's initial sepsis screen is negative. Risk Assessment: Do you want to hurt yourself or someone else? Patient reports no desire to harm self or others. Onset of symptoms was December 2020. 00:11 Method Of Arrival: Ambulatory 00:11 Acuity: LUIZ 3 bb Triage Assessment: 00:14 General: Appears uncomfortable, Behavior is cooperative. Pain: Complains of pain in bb abdomen Pain currently is 9 out of 10 on a pain scale. Neuro: Level of Consciousness is awake, alert, obeys commands, Oriented to person, place, time, situation. Cardiovascular: No deficits noted. Respiratory: Respiratory effort is even, unlabored, Respiratory pattern is regular. GI: Reports lower abdominal pain. : Reports burning with urination. Derm: Skin is pink, warm \T\ dry. Musculoskeletal: Circulation, motion, and sensation intact. 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 - Social history:: Smoking status: Patient denies any tobacco usage or history of. Screenin:30 Abuse screen: Denies threats or abuse. Denies injuries from another. Nutritional wh screening: No deficits noted. Tuberculosis screening: No symptoms or risk factors identified. Fall Risk None identified. Assessment: 01:10 General: Appears in no apparent distress. Behavior is calm, cooperative, appropriate wh for age. Pain: Complains of pain in left lower quadrant Pain radiates to back Quality of pain is described as sharp, Pain began 2-3 days ago. Is intermittent. Neuro: Level of Consciousness is awake, alert, obeys commands, Oriented to person, place, time, situation, Appropriate for age. Cardiovascular: Heart tones S1 S2. Respiratory: Airway is patent Respiratory effort is even, unlabored, Respiratory pattern is regular, symmetrical, Breath sounds are clear bilaterally. GI: Abdomen is round non-distended, Bowel sounds present X 4 quads. Abd is soft Abd is non tender Reports lower abdominal pain, nausea. : Reports burning with urination. EENT: No signs and/or symptoms were reported regarding the EENT system. Derm: Skin is intact, is healthy with good turgor, Skin is pink, warm \T\ dry. normal. Musculoskeletal: Circulation, motion, and sensation intact. 02:09 Reassessment: Patient appears in no apparent distress at this time. No changes from previously documented assessment. Patient and/or family updated on plan of care and expected duration. Pain level reassessed. Patient is alert, oriented x 3, equal unlabored respirations, skin warm/dry/pink. 03:30 Reassessment: Patient appears in no apparent distress at this time. Patient and/or family updated on plan of care and expected duration. Pain level reassessed. Patient is alert, oriented x 3, equal unlabored respirations, skin warm/dry/pink. Patient states feeling better. Patient states symptoms have improved. Vital Signs: 00:11 BP 116 / 61; Pulse 103; Resp 16 S; Temp 98.4(O); Pulse Ox 97% on R/A; Weight 86.18 kg bb (R); Height 4 ft. 11 in. (149.86 cm) (R); Pain 9/10; 02:10 BP 107 / 67; Pulse 67; Resp 18; Pulse Ox 99% on R/A; wh 03:30 BP 108 / 72; Pulse 65; Resp 18; Pulse Ox 99% on R/A; wh 00:11 Body Mass Index 38.37 (86.18 kg, 149.86 cm) ED Course: 01/02 23:55 Patient arrived in ED. cl3 01/03 00:13 Triage completed. bb 00:14 Arm band placed on Patient placed in waiting room, Patient notified of wait time. bb 00:52 Reyna Whitehead, JAZ is Primary Nurse. 01:00 Geovanny Jean MD is Attending Physician. [facility] 01:15 Inserted saline lock: 20 gauge in right antecubital area, using aseptic technique. Blood collected. 01:30 Patient has correct armband on for positive identification. Bed in low position. Call light in reach. Side rails up X 1. Pulse ox on. NIBP on. 02:31 CT Abd/Pelvis - IV Contrast Only In Process Unspecified. EDMS 03:28 Shun Hartley MD is Referral Physician. [facility] 03:46 No provider procedures requiring assistance completed. IV discontinued, intact, bleeding controlled, No redness/swelling at site. Administered Medications: 01:23 Drug: NS 0.9% 1000 ml Route: IV; Rate: 1000 ml; Site: right antecubital; 03:35 Follow up: Response: No adverse reaction; IV Status: Completed infusion 01:25 Drug: morphine 4 mg Route: IVP; Site: right antecubital; 02:11 Follow up: Response: No adverse reaction; Pain is decreased; RASS: Alert and Calm (0) 01:27 Drug: Zofran (Ondansetron) 4 mg Route: IVP; Site: right antecubital; 02:10 Follow up: Response: No adverse reaction; Nausea is decreased 03:23 Not Given (Patient Refused): TORadol 30 mg IVP once 03:23 Drug: LevaQUIN 500 mg Route: PO; 03:35 Follow up: Response: No adverse reaction Outcome: 03:28 Discharge ordered by MD. mcmanus 03:46 Discharged to home ambulatory. 03:46 Condition: stable 03:46 Discharge instructions given to patient, Instructed on discharge instructions, follow up and referral plans. medication usage, POC Demonstrated understanding of instructions, follow-up care, medications, POC Prescriptions given X 4. 03:47 Patient left the ED. Signatures: Dispatcher [employer] EDAria Felder RN RN bb Habalo, Winsy, RN RN wh Lewis, Charde cl3 Geovanny Jean MD MD mh7
--- NOTE | 2021-01-03 03:29 | EDPHYS ---
Physician Documentation [facility] Name: Adelaide Trinidad Age: 20 yrs Sex: Female : 2000 Arrival Date: 01/02/2021 Time: 23:55 Bed 5 Private MD: ED Physician Geovanny Jean HPI: 01/03 01:14 This 20 yrs old Female presents to ER via Ambulatory with complaints of mh7 Abdominal Pain. 01:20 The patient presents with abdominal pain in the left lower quadrant. Onset: The mh7 symptoms/episode began/occurred 2 day(s) ago. The symptoms radiate to the left flank. Associated signs and symptoms: Pertinent positives: dysuria, nausea, Pertinent negatives: anorexia, blood in stools, chest pain, constipation, diarrhea, fever, headache, hematuria, palpitations, shortness of breath, vaginal discharge, vomiting, vomiting blood. The symptoms are described as intermittent, vague, waxing/waning. Modifying factors: The symptoms are alleviated by nothing, the symptoms are aggravated by nothing. Severity of pain: At its worst the pain was moderate last night, in the emergency department the pain is unchanged. 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 - Social history:: Smoking status: Patient denies any tobacco usage or history of. ROS: 01:20 Constitutional: Negative for fever, chills, and weight loss, Eyes: Negative for injury, mh7 pain, redness, and discharge, ENT: Negative for injury, pain, and discharge, Neck: Negative for injury, pain, and swelling, Cardiovascular: Negative for chest pain, palpitations, and edema, Respiratory: Negative for shortness of breath, cough, wheezing, and pleuritic chest pain, MS/Extremity: Negative for injury and deformity, Skin: Negative for injury, rash, and discoloration, Neuro: Negative for headache, weakness, numbness, tingling, and seizure, Psych: Negative for depression, anxiety, suicide ideation, homicidal ideation, and hallucinations, Allergy/Immunology: Negative for hives, rash, and allergies, Endocrine: Negative for neck swelling, polydipsia, polyuria, polyphagia, and marked weight changes, Hematologic/Lymphatic: Negative for swollen nodes, abnormal bleeding, and unusual bruising. Exam: 01:20 Constitutional: This is a well developed, well nourished patient who is awake, alert, mh7 and in no acute distress. Head/Face: Normocephalic, atraumatic. Eyes: Pupils equal round and reactive to light, extra-ocular motions intact. Lids and lashes normal. Conjunctiva and sclera are non-icteric and not injected. Cornea within normal limits. Periorbital areas with no swelling, redness, or edema. Neck: Trachea midline, no thyromegaly or masses palpated, and no cervical lymphadenopathy. Supple, full range of motion without nuchal rigidity, or vertebral point tenderness. No Meningismus. Chest/axilla: Normal chest wall appearance and motion. Nontender with no deformity. No lesions are appreciated. Cardiovascular: Regular rate and rhythm with a normal S1 and S2. No gallops, murmurs, or rubs. Normal PMI, no JVD. No pulse deficits. Respiratory: Lungs have equal breath sounds bilaterally, clear to auscultation and percussion. No rales, rhonchi or wheezes noted. No increased work of breathing, no retractions or nasal flaring. 01:20 Skin: Warm, dry with normal turgor. Normal color with no rashes, no lesions, and no evidence of cellulitis. MS/ Extremity: Pulses equal, no cyanosis. Neurovascular intact. Full, normal range of motion. Neuro: Awake and alert, GCS 15, oriented to person, place, time, and situation. Cranial nerves II-XII grossly intact. Motor strength 5/5 in all extremities. Sensory grossly intact. Cerebellar exam normal. Normal gait. Psych: Awake, alert, with orientation to person, place and time. Behavior, mood, and affect are within normal limits. 01:20 Abdomen/GI: Inspection: obese Bowel sounds: normal, in all quadrants, Palpation: moderate abdominal tenderness, in the left lower quadrant, mass, is not appreciated, rebound tenderness, is not appreciated, voluntary guarding, is not appreciated, involuntary guarding, is not appreciated, no appreciated organomegaly, Rectal exam: the exam is deferred, because of patient request, Indicators: McBurney's point is not tender, Dodge's sign is negative, Rovsing's sign is negative, Obturator sign is negative, Psoas sign is negative, Liver: no appreciated palpable abnormalities, Hernia: not appreciated. 01:20 Back: ROM is normal, normal spinal alignment noted, CVA tenderness, that is moderate, is noted on the left, muscle spasm, is not present. Vital Signs: 00:11 BP 116 / 61; Pulse 103; Resp 16 S; Temp 98.4(O); Pulse Ox 97% on R/A; Weight 86.18 kg bb (R); Height 4 ft. 11 in. (149.86 cm) (R); Pain 9/10; 02:10 BP 107 / 67; Pulse 67; Resp 18; Pulse Ox 99% on R/A; wh 03:30 BP 108 / 72; Pulse 65; Resp 18; Pulse Ox 99% on R/A; wh 00:11 Body Mass Index 38.37 (86.18 kg, 149.86 cm) bb MDM: 03:15 Differential diagnosis: bowel obstruction, diverticulitis, Ectopic , mh7 non-specific abd pain, Pyelonephritis, Ureterolithiasis, urinary tract infection. Data reviewed: vital signs, nurses notes, old medical records, lab test result(s), CBC, electrolytes, urinalysis, UPT: negative radiologic studies, CT scan. Data interpreted: Pulse oximetry: on room air is 99 %. Interpretation: normal. Counseling: I had a detailed discussion with the patient and/or guardian regarding: the historical points, exam findings, and any diagnostic results supporting the discharge/admit diagnosis, lab results, radiology results, the need for outpatient follow up, to return to the emergency department if symptoms worsen or persist or if there are any questions or concerns that arise at home. 03:28 Patient medically screened. [facility] 03:35 Response to treatment: the patient's symptoms have resolved after treatment, the [facility] patient's blood pressure is in an acceptable range, mental status has returned to baseline, the patient no longer shows bradycardia, the patient is not short of breath, the patient is not tachycardic, the patient's pain is gone, the patient's temperature has normalized. Refusal of service: The patient/guardian displays adequate decision making capability and despite a detailed discussion of alternatives, benefits, risks, and consequences refuses: Medications. 06:16 ED course: Patient search on [facility] site reveal multiple prescriptions over the past [facility] 12 months for opioid pain medication. Patient not given opioid prescription for her current diagnosis.. 01/03 01:06 Order name: Urine Dipstick--Ancillary (enter results); Complete Time: 02:45 [facility] 01/03 01:11 Order name: Basic Metabolic Panel [facility] 01/03 01:11 Order name: CBC with Diff [facility] 01/03 01:11 Order name: Hepatic Function [facility] 01/03 01:11 Order name: Lipase [facility] 01/03 01:12 Order name: Basic Metabolic Panel; Complete Time: 01:56 [facility] 01/03 01:12 Order name: Liver (Hepatic) Function; Complete Time: 01:56 [facility] 01/03 01:12 Order name: CBC with Automated Diff; Complete Time: 01:42 [facility] 01/03 01:12 Order name: Lipase; Complete Time: 01:56 [facility] 01/03 01:13 Order name: CT Abd/Pelvis - IV Contrast Only [facility] 01/03 02:07 Order name: Urine --Ancillary (enter results); Complete Time: 02:45 [facility] 01/03 03:00 Order name: Urine Culture [facility] 01/03 01:06 Order name: Urine Dipstick-Ancillary (obtain specimen); Complete Time: 01:07 [facility] 01/03 01:06 Order name: Urine Test (obtain specimen); Complete Time: 01:28 [facility] 01/03 01:11 Order name: IV Saline Lock; Complete Time: 01:28 [facility] 01/03 01:11 Order name: Labs collected and sent; Complete Time: 01:28 [facility] Administered Medications: 01:23 Drug: NS 0.9% 1000 ml Route: IV; Rate: 1000 ml; Site: right antecubital; 03:35 Follow up: Response: No adverse reaction; IV Status: Completed infusion 01:25 Drug: morphine 4 mg Route: IVP; Site: right antecubital; 02:11 Follow up: Response: No adverse reaction; Pain is decreased; RASS: Alert and Calm (0) 01:27 Drug: Zofran (Ondansetron) 4 mg Route: IVP; Site: right antecubital; 02:10 Follow up: Response: No adverse reaction; Nausea is decreased 03:23 Not Given (Patient Refused): TORadol 30 mg IVP once 03:23 Drug: LevaQUIN 500 mg Route: PO; 03:35 Follow up: Response: No adverse reaction Disposition: 01/03/21 03:28 Discharged to Home. Impression: Pyelonephritis. - Condition is Stable. - Discharge Instructions: Pyelonephritis, Adult, [id number]. - Prescriptions for Zofran ODT 4 mg Oral tablet,disintegrating - place 1 tablet by TRANSLINGUAL route every 8 hours As needed; 6 tablet. ketorolac 10 mg Oral tablet - take 1 tablet by ORAL route every 8 hours As needed not to exceed 40 mg in 24hrs; 12 tablet. Levaquin 500 mg Oral Tablet - take 1 tablet by ORAL route once daily for 10 days; 10 tablet. Pyridium 200 mg Oral Tablet - take 1 tablet by ORAL route every 8 hours for 2 days; 6 tablet. - Medication Reconciliation Form, Thank You Letter, Antibiotic Education, Prescription Opioid Use form. - Follow up: Private Physician; When: 1 - 2 days; Reason: Worsening of condition, Recheck today's complaints, Continuance of care, Re-evaluation by your physician. Follow up: Shun Hartley MD; When: 2 - 3 days; Reason: Worsening of condition, Recheck today's complaints. - Problem is new. - Symptoms have improved. Signatures: Dispatcher [employer] EDAria Felder RN RN Reyna Whitehead RN RN Raji Dugan 2 Geovanny Jean MD MD [facility] Corrections: (The following items were deleted from the chart) 03:17 03:15 Response to treatment: the patient's symptoms have markedly improved after [facility] treatment, [facility] 03:47 03:28 01/03/2021 03:28 Discharged to Home. Impression: Pyelonephritis. Condition is wh Stable. Forms are Medication Reconciliation Form, Thank You Letter, Antibiotic Education, Prescription Opioid Use. Follow up: Private Physician; When: 1 - 2 days; Reason: Worsening of condition, Recheck today's complaints, Continuance of care, Re-evaluation by your physician. Follow up: Shun Hartley; When: 2 - 3 days; Reason: Worsening of condition, Recheck today's complaints. Problem is new. Symptoms have improved. mh7
[2021-01-03] MEDS ORDERED: KETOROLAC 30 MG/ML INJ ONE (03:34)
[2021-01-03] MEDS ORDERED: levoFLOXacin 500 MG TAB ONE (03:34)
[2021-01-03 04:12] VITALS: TEMP 98.4
[2021-01-03 04:13] VITALS: O2SAT 99
[2021-01-03 04:14] VITALS: BP 108/72
--- NOTE | 2021-01-03 11:53 | RAD REPORT ---
EXAM DESCRIPTION: CT - Abdomen Pelvis W Contrast - 01/03/2021 6:52 am COMPARISON: CT abdomen pelvis April 17, 2020 CLINICAL HISTORY: [facility] MAIN Abd pain;Flank pain TECHNIQUE: CT of the abdomen and pelvis was acquired with IV contrast material. Coronal and sagitt al reconstructions were obtained. Automated exposure control was utilized on this examination as a dose lowering technique. FINDINGS: Lung bases: Clear. Liver: Normal. Gallbladder and biliary: Normal gallbladder. Unremarkable biliary tree. Pancreas: Normal. Spleen: Normal. Adrenal glands: Normal adrenal glands. Kidneys: Trace bilateral hydronephrosis. Stomach and Small Bowel: The stomach and small bowel are normal. Urinary bladder: Normal. Uterus and Adnexa: Vaginal ring in place. Otherwise, unremarkable. Colon and Appendix: The colon is unremarkable. Appendectomy. Retroperitoneum and lymph nodes: Normal. Vascular: Normal. Peritoneal cavity: No ascites or free air. Musculoskeletal and soft tissues: Soft tissues are unremarkable. No aggressive bone lesions. No com pression fracture. IMPRESSION: Trace bilateral hydronephrosis without obstructing calculi. No other significant intra-a bdominal abnormalities. 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 The interpreting r adiologist is fully responsible for the content of the report.
== END 2021-01-03 03:47 | disposition home or self-care (01) ==
LOC: ER 23:53
DX: N12 Tubulo-interstitial nephritis, not specified as acute or chronic (principal); E03.9 Hypothyroidism, unspecified; F41.8 Other specified anxiety disorders; J45.909 Unspecified asthma, uncomplicated; Z88.1 Allergy status to other antibiotic agents; Z88.8 Allergy status to other drugs, medicaments and biological substances
CPT/HCPCS: 87088; 85025; 87086; 80048; 36415; 81025; 80076; 81003; 83690; 74177; Q9967; J7030; J2405; 96361; 96374; 96375; 99284

== ENCOUNTER 2021-03-06 22:21 | Emergency (ER) | payer BC ==
[2021-03-06 23:16] LABS: Urine Blood Negative (Negative); Urine Glucose Negative (Negative); Urine Protein Negative (Negative); Urine Specific Gravity 1.025 (1.005-1.030); Urine pH 5.5 (5.0-7.0)
[2021-03-06] MEDS ORDERED: KETOROLAC 30 MG/ML INJ ONE (23:28)
[2021-03-06] MEDS ORDERED: ONDANSETRON 4 MG/2 ML VIAL ONE (23:28)
[2021-03-06] MEDS ORDERED: dexAMETHasone 10 MG/ML VIAL ONE (23:28)
[2021-03-06] MEDS ORDERED: NA CHLORIDE 0.9% 1,000 ML ONE (23:28)
[2021-03-06] MEDS ORDERED: MORPHINE 4 MG/ML SYR ONE (23:28)
[2021-03-06] MEDS ORDERED: CEFTRIAXONE/SWI 1gm 1 GM/10 ML SYR ONE (23:53)
[2021-03-07 00:03] LABS: Absolute Lymphocytes (CBC) 1.7 K/uL (0.7-4.9); Basophils % 0.9 % (0-1.3); Hematocrit 40.8 % (36.0-45.0); Lymphocytes % 20.7 % (15.3-44.8); MPV 9.4 fL (7.6-11.3); RBC Red Blood Cell Count 4.56 M/uL (3.86-4.86)
[2021-03-07 00:14] LABS: Albumin 4.1 g/dL (3.4-5.0); Bilirubin Total 0.2 mg/dL (0.2-1.0); Potassium 3.6 mmol/L (3.5-5.1); Protein, Total 7.6 g/dL (6.4-8.2)
[2021-03-07 00:21] LABS: Urine Specific Gravity/Preg 1.025 (1.005-1.030)
--- NOTE | 2021-03-07 00:21 | EDPHYS ---
Physician Documentation [facility] Name: Adelaide Trinidad Age: 21 yrs Sex: Female : 2000 Arrival Date: 03/06/2021 Time: :26 Bed 2 Private MD: MYLES Physician Juan A Louie HPI: 03/06 23:03 This 21 yrs old Female presents to ER via Ambulatory with complaints of Head antionette Injury-Adult. 23:03 The patient or guardian reports pain, tenderness. The complaints affect the right side antionette of the back of head, right occipital area and right base of the skull. Context of injury: The problem was sustained at home, resulted from a direct blow. Onset: The symptoms/episode began/occurred 4 day(s) ago. Associated signs and symptoms: Loss of consciousness: This patient did not experience any loss of consciousness. Pertinent positives: injury. Severity of symptoms: At their worst the symptoms were moderate, in the emergency department the symptoms are unchanged. The patient has not experienced similar symptoms in the past. 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 - Social history:: Smoking status: Patient denies any tobacco usage or history of. - Family history:: not pertinent. ROS: 23:03 Constitutional: Negative for fever, chills, and weight loss, Eyes: Negative for injury, antionette pain, redness, and discharge, ENT: Negative for injury, pain, and discharge, Cardiovascular: Negative for chest pain, palpitations, and edema, Respiratory: Negative for shortness of breath, cough, wheezing, and pleuritic chest pain, Abdomen/GI: Negative for abdominal pain, nausea, vomiting, diarrhea, and constipation, Back: Negative for injury and pain, : Negative for injury, bleeding, discharge, and swelling, MS/Extremity: Negative for injury and deformity, Skin: Negative for injury, rash, and discoloration, Psych: Negative for depression, anxiety, suicide ideation, homicidal ideation, and hallucinations, Allergy/Immunology: Negative for hives, rash, and allergies, Endocrine: Negative for neck swelling, polydipsia, polyuria, polyphagia, and marked weight changes, Hematologic/Lymphatic: Negative for swollen nodes, abnormal bleeding, and unusual bruising. 23:03 Neck: Positive for pain with movement, pain at rest, tenderness. Exam: 23:03 Constitutional: This is a well developed, well nourished patient who is awake, alert, antionette and in no acute distress. Head/Face: Normocephalic, atraumatic. Eyes: Pupils equal round and reactive to light, extra-ocular motions intact. Lids and lashes normal. Conjunctiva and sclera are non-icteric and not injected. Cornea within normal limits. Periorbital areas with no swelling, redness, or edema. ENT: Nares patent. No nasal discharge, no septal abnormalities noted. Tympanic membranes are normal and external auditory canals are clear. Oropharynx with no redness, swelling, or masses, exudates, or evidence of obstruction, uvula midline. Mucous membranes moist. Chest/axilla: Normal chest wall appearance and motion. Nontender with no deformity. No lesions are appreciated. Cardiovascular: Regular rate and rhythm with a normal S1 and S2. No gallops, murmurs, or rubs. Normal PMI, no JVD. No pulse deficits. Respiratory: Lungs have equal breath sounds bilaterally, clear to auscultation and percussion. No rales, rhonchi or wheezes noted. No increased work of breathing, no retractions or nasal flaring. Abdomen/GI: Soft, non-tender, with normal bowel sounds. No distension or tympany. No guarding or rebound. No evidence of tenderness throughout. Back: No spinal tenderness. No costovertebral tenderness. Full range of motion. Skin: Warm, dry with normal turgor. Normal color with no rashes, no lesions, and no evidence of cellulitis. MS/ Extremity: Pulses equal, no cyanosis. Neurovascular intact. Full, normal range of motion. Neuro: Awake and alert, GCS 15, oriented to person, place, time, and situation. Cranial nerves II-XII grossly intact. Motor strength 5/5 in all extremities. Sensory grossly intact. Cerebellar exam normal. Normal gait. Psych: Awake, alert, with orientation to person, place and time. Behavior, mood, and affect are within normal limits. 23:03 Neck: External neck: is normal, no acute changes, C-spine: appears grossly normal, no acute changes, Thyroid: appears normal, no acute changes, Trachea: is midline with no obvious abnormalities, no acute changes, ROM/movement: is normal, no acute changes. Vital Signs: 22:48 BP 143 / 96; Pulse 120; Resp 16; Temp 97.7; Pulse Ox 100% on R/A; Weight 86.18 kg; iw Height 4 ft. 11 in. (149.86 cm); Pain 10/10; 22:48 Body Mass Index 38.37 (86.18 kg, 149.86 cm) iw Charlotte Coma Score: 23:03 Eye Response: spontaneous(4). Verbal Response: oriented(5). Motor Response: obeys [facility] commands(6). Total: 15. 23:06 Eye Response: spontaneous(4). Verbal Response: oriented(5). Motor Response: obeys antionette commands(6). Total: 15. MDM: 22:55 Patient medically screened. antionette 23:06 Differential diagnosis: Contusion of Hematoma on Intracranial bleed- Concussion. Data antionette reviewed: vital signs, nurses notes, lab test result(s), radiologic studies, CT scan. Data interpreted: family psychologist: rate is 120 beats/min, rhythm is regular. Test interpretation: by ED physician or midlevel provider:. Counseling: I had a detailed discussion with the patient and/or guardian regarding: the historical points, exam findings, and any diagnostic results supporting the discharge/admit diagnosis, lab results, radiology results, the need for outpatient follow up, for definitive care, a family practitioner. 03/06 23:03 Order name: CBC with Diff; Complete Time: 00:19 antionette 03/06 23:03 Order name: Comprehensive Metabolic Panel; Complete Time: 00:19 antionette 03/06 23:15 Order name: Urine Dipstick-Ancillary; Complete Time: 23:21 [facility] 03/06 23:16 Order name: Urine --Ancillary (enter results) tt3 03/06 23:17 Order name: Urine Microscopic Only rr5 03/06 23:17 Order name: Urine Culture [facility] 03/06 22:58 Order name: CT Head C Spine [facility] 03/06 22:58 Order name: Urine Dipstick-Ancillary (obtain specimen); Complete Time: 23:16 [facility] 03/06 22:58 Order name: Urine Test (obtain specimen); Complete Time: 23:16 [facility] Administered Medications: 23:49 Drug: Rocephin (cefTRIAXone) 1 grams Route: IV; Rate: per protocol; Site: right upper ea arm; 03/07 00:25 Follow up: Response: No adverse reaction; IV Status: Completed infusion 03/06 23:50 Drug: Decadron - Dexamethasone 10 mg Route: IVP; Site: right upper arm; ea 03/07 00:14 Follow up: Response: No adverse reaction 03/06 23:50 Drug: TORadol (ketorolac) 30 mg Route: IVP; Site: right upper arm; 03/07 00:13 Follow up: Response: No adverse reaction 03/06 23:51 Drug: morphine 4 mg Route: IVP; Site: right upper arm; ea 03/07 00:14 Follow up: Response: No adverse reaction; Pain is decreased 03/06 23:51 Drug: Zofran (Ondansetron) 4 mg Route: IVP; Site: right upper arm; ea 03/07 00:14 Follow up: Response: No adverse reaction 03/06 23:52 Drug: NS 0.9% 1000 ml Route: IV; Rate: 1 bolus; Site: right upper arm; 03/07 00:30 Follow up: Response: No adverse reaction; IV Status: Completed infusion; IV Intake: ea 1000ml Disposition: 03/07/21 00:20 Discharged to Home. Impression: Superficial injury of head, Strain of muscle, fascia and tendon at neck level, Radiculopathy, cervical region, Urinary tract infection, site not specified. - Condition is Stable. - Discharge Instructions: Muscle Strain, Urinary Tract Infection, Adult, Urinary Tract Infection, Adult, Void-[id number], Cervical Sprain, Aqro-[id number], Head Injury, Adult, Dqyi-[id number], Cervical Radiculopathy, [id number]-[id number], Radicular Pain. - Prescriptions for dexamethasone 2 mg Oral tablet - take 1 tablet by ORAL route 2 times per day; 10 tablet. Ibuprofen 600 mg Oral Tablet - take 1 tablet by ORAL route every 6 hours As needed take with food; 30 tablet. Cyclobenzaprine 5 mg Oral Tablet - take 1 tablet by ORAL route 3 times per day As needed; 15 tablet. Cipro 250 mg Oral Tablet - take 1 tablet by ORAL route every 12 hours; 14 tablet. - Medication Reconciliation Form, Thank You Letter, Antibiotic Education, Prescription Opioid Use form. - Follow up: Private Physician; When: 2 - 3 days; Reason: Recheck today's complaints, Continuance of care, Re-evaluation by your physician. - Problem is new. - Symptoms have improved. Signatures: Dispatcher [employer] EDMS Juan A Louie MD MD cha Williams, Irene, RN RN iw Antunez, Elena, RN RN ea Corrections: (The following items were deleted from the chart) 00:45 00:20 03/07/2021 00:20 Discharged to Home. Impression: Superficial injury of head; ea Strain of muscle, fascia and tendon at neck level; Radiculopathy, cervical region; Urinary tract infection, site not specified. Condition is Stable. Discharge Instructions: Muscle Strain, Cervical Sprain, [id number], Head Injury, Adult, Gema-hj-[id number], Cervical Radiculopathy, Kdbb-ie-Lxiu, Radicular Pain, Urinary Tract Infection, Adult, Urinary Tract Infection, Adult, Qfvs-[id number]-Dfmo. Prescriptions for dexamethasone 2 mg Oral tablet - take 1 tablet by ORAL route 2 times per day; 10 tablet, Ibuprofen 600 mg Oral Tablet - take 1 tablet by ORAL route every 6 hours As needed take with food; 30 tablet, Cyclobenzaprine 5 mg Oral Tablet - take 1 tablet by ORAL route 3 times per day As needed; 15 tablet, Cipro 250 mg Oral Tablet - take 1 tablet by ORAL route every 12 hours; 14 tablet. and Forms are Medication Reconciliation Form, Thank You Letter, Antibiotic Education, Prescription Opioid Use. Follow up: Private Physician; When: 2 - 3 days; Reason: Recheck today's complaints, Continuance of care, Re-evaluation by your physician. Problem is new. Symptoms have improved. antionette
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
[2021-03-07 01:01] LABS: Urine Bacteria 20-50 /HPF (<20); Urine RBC <5 /HPF (NONE SEEN)
[2021-03-07 01:38] VITALS: BP 143/96; TEMP 97.7; O2SAT 100
--- NOTE | 2021-03-07 14:36 | RAD REPORT ---
EXAM DESCRIPTION: CT - Head C Spine Mpr Wo Con - 03/07/2021 6:28 am COMPARISON: None. CLINICAL HISTORY: [facility] MAIN PAIN TECHNIQUE: Axial images were obtained from skull base to vertex without intravenous contrast. Imag es viewed on bone and brain windows. Multiplanar reformats were performed. Automated exposure contr ol was utilized on this examination as a dose lowering technique. FINDINGS: Brain parenchyma, ventricles, dura, meninges, and extra-axial spaces: Ventricles and sulci are normal. No abnormal attenuation of brain parenchyma is present. No acute intracranial hemor rhage or abnormal extra-axial fluid collections are present. Vascular structures: No hyperdense arteries or veins. Calvarium, mastoid air cells, paranasal sinuses and orbits: The calvarium is normal. The mastoid air cells are clear. Visualized paranasal sinuses are unremarkable. Orbital structures are unremarkable. IMPRESSION: No acute intracranial abnormality. EXAM DESCRIPTION: CT Cervical Spine COMPARISON: None. TECNIQUE: [facility] MAIN PAIN TECHNIQUE: Axial CT images were obtained through the entire cervical spine without contrast. Sagit joann and coronal reconstructions are provided. Automated exposure control was utilized on this examina tion as a dose lowering technique. FINDINGS: Vertebrae: There is reversal of normal cervical lordosis. 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 No acute fracture, dislocation or destructive osseous pr ocess is present. Spinal canal, foramina, and facet joints: No significant spinal canal or foraminal stenoses. No significant facet arthropathy. Paraspinous soft-tissues: Normal. Thyroid: Normal. Other Findings: None. IMPRESSION: 1. No acute fracture or subluxation. 2. Reversal of normal cervical lordosis may be positional or due to muscular strain or spasm. Electronically signed by: Jose Bashir MD 03/06/2021 11:43 PM CDT Due to temporary technical issues with the PACS/Fluency reporting system, reports are being signed by the in house radiologists without review as a courtesy to insure prompt reporting. The interpreting radiologist is fully responsible for the content of the report.
== END 2021-03-07 00:45 | disposition home or self-care (01) ==
LOC: ER 22:21
DX: S16.1XXA Strain of muscle, fascia and tendon at neck level, initial encounter (principal); M54.12 Radiculopathy, cervical region; N39.0 Urinary tract infection, site not specified; W22.8XXA Striking against or struck by other objects, initial encounter; Y92.009 Unspecified place in unspecified non-institutional (private) residence as the place of occurrence of the external cause; F41.8 Other specified anxiety disorders; E03.9 Hypothyroidism, unspecified; Z88.1 Allergy status to other antibiotic agents; Z88.8 Allergy status to other drugs, medicaments and biological substances
CPT/HCPCS: 87088; 85025; 87086; 36415; 81025; 80053; 70450; 72125; J1100; J0696; J7030; J2405; 81003; 81015; 96365; 96375; 99284

== ENCOUNTER 2021-04-17 17:34 | Emergency (ER) | payer BC ==
--- NOTE | 2021-04-17 19:49 | RAD REPORT ---
EXAM DESCRIPTION: US - Abdomen Exam Limited - 04/17/2021 7:39 pm CLINICAL HISTORY: ABD PAIN COMPARISON: Abdomen Exam Limited dated 07/06/2017 FINDINGS: The gallbladder demonstrates no gallstones. No pericholecystic fluid or gallbladder wall t hickening. The common bile duct is normal measuring 3 mm. The liver demonstrates no findings of intrahepatic biliary dilatation. IMPRESSION: Unremarkable examination.
[2021-04-17 20:45] LABS: Absolute Lymphocytes (CBC) 1.2 K/uL (0.7-4.9); Basophils % 1.2 % (0-1.3); Lymphocytes % 22.5 % (15.3-44.8); MPV 8.7 fL (7.6-11.3); RBC Red Blood Cell Count 4.48 M/uL (3.86-4.86)
[2021-04-17 20:59] LABS: ALT/SGPT 39 U/L (12-78); AST/SGOT 21 U/L (15-37); Albumin 3.8 g/dL (3.4-5.0); Alkaline Phosphatase 81 U/L (45-117); BUN Blood Urea Nitrogen 8 mg/dL (7-18); Bicarbonate 24 mmol/L (21-32); Bilirubin Direct < 0.1 mg/dL (0-0.2); Bilirubin Total 0.2 mg/dL (0.2-1.0); Glucose Level 90 mg/dL (74-106); Lipase 39 U/L (73-393); Potassium 3.8 mmol/L (3.5-5.1); Protein, Total 7.5 g/dL (6.4-8.2); Sodium Level 141 mmol/L (136-145)
[2021-04-17] MEDS ORDERED: ONDANSETRON 4 MG/2 ML VIAL ONE ×2 (21:08→22:08)
[2021-04-17] MEDS ORDERED: KETOROLAC 30 MG/ML INJ ONE (21:08)
[2021-04-17] MEDS ORDERED: NA CHLORIDE 0.9% 1,000 ML ONE (21:08)
[2021-04-17 21:22] LABS: Urine Blood Trace-intact (Negative); Urine Glucose Negative (Negative); Urine Protein Negative (Negative); Urine Specific Gravity 1.025 (1.005-1.030); Urine pH 7.5 (5.0-7.0)
[2021-04-17 21:53] LABS: Urine Specific Gravity/Preg 1.025 (1.005-1.030)
[2021-04-17] MEDS ORDERED: MORPHINE 4 MG/ML SYR ONE (22:08)
--- NOTE | 2021-04-17 22:46 | ER ---
Nurse's Notes [facility] Name: Adelaide Trinidad Age: 21 yrs Sex: Female : 2000 Arrival Date: 04/17/2021 Time: 17:36 Bed 19 Private MD: Diagnosis: Upper abdominal pain, unspecified Presentation: 04/17 18:20 Chief complaint: Patient states: RUQ abd pain with nausea and diarrhea for 1 week, ll1 sever pain for today. Pain and diarrhea worse after eating. No fever. Coronavirus screen: Client denies travel out of the [place] in the last 14 days. At this time, the client does not indicate any symptoms associated with coronavirus-19. Ebola Screen: Patient denies travel to an Ebola-affected area in the 21 days before illness onset. Initial Sepsis Screen: Does the patient meet any 2 criteria? HR > 90 bpm. No. Patient's initial sepsis screen is negative. Does the patient have a suspected source of infection? Yes: Acute abdominal pain. Risk Assessment: Do you want to hurt yourself or someone else? Patient reports no desire to harm self or others. Onset of symptoms was April 10, 2021. 18:20 Method Of Arrival: Ambulatory ll1 18:20 Acuity: LUIZ 3 ll1 Historical: - Allergies: 18:22 Doxycycline; ll1 18:22 Bactrim; ll1 18:22 Zithromax; ll1 18:22 Zosyn; ll1 - PMHx: 18:22 Anxiety; Asthma; Depression; HYPOGLYCEMIA; Hypothyroidism; scoliosis; ll1 - PSHx: 18:22 right hip; Appendectomy; dental surgery; ll1 - Immunization history:: Client reports having NOT received the Covid vaccine. Flu vaccine is not up to date. - Social history:: Smoking status: Patient denies any tobacco usage or history of. Screenin:42 Abuse screen: Denies threats or abuse. Denies injuries from another. Nutritional jm8 screening: No deficits noted. Tuberculosis screening: No symptoms or risk factors identified. Fall Risk None identified. Assessment: 20:40 General: Appears in no apparent distress. distressed, Behavior is calm, cooperative, jm8 appropriate for age. Pain: Complains of pain in abdomen Pain currently is 10 out of 10 on a pain scale. Quality of pain is described as crampy, Pain began 1 day ago. Also complains of nausea. Neuro: No deficits noted. Level of Consciousness is awake, alert, obeys commands, Oriented to person, place, time. Cardiovascular: No deficits noted. Respiratory: No deficits noted. Airway is patent Trachea midline Respiratory effort is even, unlabored, Respiratory pattern is regular, symmetrical. GI: Bowel sounds present X 4 quads. Abd is soft and non tender Reports lower abdominal pain, upper abdominal pain, cramping, diarrhea, nausea, vomiting. : No deficits noted. No signs and/or symptoms were reported regarding the genitourinary system. EENT: No deficits noted. No signs and/or symptoms were reported regarding the EENT system. Derm: No deficits noted. No signs and/or symptoms reported regarding the dermatologic system. Musculoskeletal: No deficits noted. No signs and/or symptoms reported regarding the musculoskeletal system. Vital Signs: 18:20 Pulse 115; Resp 17; Temp 98.2; Pulse Ox 99% ; Weight 86.18 kg; Height 4 ft. 11 in. ll1 (149.86 cm); Pain 10/10; 18:20 BP 132 / 90; ll1 18:20 Body Mass Index 38.37 (86.18 kg, 149.86 cm) ll1 ED Course: 17:36 Patient arrived in ED. as 18:22 Triage completed. ll1 18:23 Arm band placed on. ll1 19:17 Sahara Lynn [facility]C [facility]. kb 19:17 Adolfo Montero MD is Attending Physician. kb 19:39 US Abdomen Limited In Process Unspecified. EDMS 20:43 Patient has correct armband on for positive identification. Bed in low position. Call [facility] light in reach. Side rails up X2. 20:43 Inserted saline lock: 18 gauge in left upper arm, using aseptic technique. Accessed [facility] peripheral vein via ultrasound, utilizing dynamic ultrasound technique using. 21:42 CT Abd/Pelvis - IV Contrast Only In Process Unspecified. EDMS 22:56 No provider procedures requiring assistance completed. IV discontinued, intact. [facility] Administered Medications: 20:52 Drug: NS 0.9% 1000 ml Route: IV; Rate: 1000 ml; Site: right upper arm; [facility] 22:59 Follow up: IV Status: Completed infusion [facility] 20:52 Drug: Zofran (Ondansetron) 4 mg Route: IVP; Site: right upper arm; jm8 21:54 Follow up: Response: No adverse reaction jm8 20:52 Drug: TORadol (ketorolac) 30 mg Route: IVP; Site: right upper arm; jm8 21:54 Follow up: Response: No adverse reaction jm8 21:54 Drug: Zofran (Ondansetron) 4 mg Route: IVP; Site: right upper arm; jm8 22:59 Follow up: Response: No adverse reaction jm8 21:54 Drug: morphine 4 mg Route: IVP; Site: right upper arm; jm8 22:59 Follow up: Response: No adverse reaction jm8 Outcome: 22:45 Discharge ordered by . heather 22:57 Discharged to home ambulatory, with family. jm8 22:57 Condition: good 22:57 Discharge instructions given to patient, family, Instructed on discharge instructions, follow up and referral plans. medication usage, Demonstrated understanding of instructions, follow-up care, medications. 22:58 Patient left the ED. jm8 Signatures: Dispatcher [employer] EDMS Sahara Lynn, KIARA-C KIARA-Jessica Solomon as Laura Bhardwaj, RN RN ll1 Tyson Tristan RN RN jm8
--- NOTE | 2021-04-17 22:46 | EDPHYS ---
Physician Documentation [facility] Name: Adelaide Trinidad Age: 21 yrs Sex: Female : 2000 Arrival Date: 04/17/2021 Time: 17:36 Bed 19 Private MD: ED Physician Adolfo Montero HPI: 04/18 00:25 This 21 yrs old Female presents to ER via Ambulatory with complaints of kb Abdominal Pain. 00:25 The patient presents with abdominal pain in the right upper quadrant. Onset: The kb symptoms/episode began/occurred 1 week(s) ago. The symptoms do not radiate. Associated signs and symptoms: Pertinent positives: diarrhea, nausea, Pertinent negatives: fever. The symptoms are described as constant. Modifying factors: The symptoms are alleviated by nothing, the symptoms are aggravated by nothing. Severity of pain: At its worst the pain was moderate in the emergency department the pain is unchanged. The patient has not experienced similar symptoms in the past. The patient has not recently seen a physician. Historical: - Allergies: 04/17 18:22 Doxycycline; ll1 18:22 Bactrim; ll1 18:22 Zithromax; ll1 18:22 Zosyn; ll1 - PMHx: 18:22 Anxiety; Asthma; Depression; HYPOGLYCEMIA; Hypothyroidism; scoliosis; ll1 - PSHx: 18:22 right hip; Appendectomy; dental surgery; ll1 - Immunization history:: Client reports having NOT received the Covid vaccine. Flu vaccine is not up to date. - Social history:: Smoking status: Patient denies any tobacco usage or history of. ROS: 04/18 00:25 Constitutional: Negative for fever, chills, and weight loss. kb Abdomen/GI: Positive for abdominal pain, nausea, diarrhea. All other systems are negative. Exam: 00:25 Constitutional: This is a well developed, well nourished patient who is awake, alert, kb and in no acute distress. Head/Face: Normocephalic, atraumatic. ENT: Moist Mucous membranes Cardiovascular: Regular rate and rhythm with a normal S1 and S2. No gallops, murmurs, or rubs. No pulse deficits. Respiratory: Respirations even and unlabored. No increased work of breathing, no retractions or nasal flaring. Skin: Warm, dry with normal turgor. Normal color. MS/ Extremity: Pulses equal, no cyanosis. Neurovascular intact. Full, normal range of motion. Neuro: Awake and alert, GCS 15, oriented to person, place, time, and situation. Moves all extremities. Normal gait. Psych: Awake, alert, with orientation to person, place and time. Behavior, mood, and affect are within normal limits. 00:25 Abdomen/GI: Inspection: abdomen appears normal, Bowel sounds: normal, in all quadrants, Palpation: soft, in all quadrants, mild abdominal tenderness, in the right upper quadrant. Vital Signs: 04/17 18:20 Pulse 115; Resp 17; Temp 98.2; Pulse Ox 99% ; Weight 86.18 kg; Height 4 ft. 11 in. ll1 (149.86 cm); Pain 10/10; 18:20 BP 132 / 90; ll1 18:20 Body Mass Index 38.37 (86.18 kg, 149.86 cm) ll1 MDM: 20:10 Patient medically screened. kb 04/18 00:25 Data reviewed: vital signs, nurses notes. Data interpreted: Pulse oximetry: on room air kb is 99 %. Interpretation: normal. Counseling: I had a detailed discussion with the patient and/or guardian regarding: the historical points, exam findings, and any diagnostic results supporting the discharge/admit diagnosis, lab results, radiology results, the need for outpatient follow up, a process supervisor, to return to the emergency department if symptoms worsen or persist or if there are any questions or concerns that arise at home. 04/17 20:10 Order name: Basic Metabolic Panel; Complete Time: 21:01 kb 04/17 20:10 Order name: CBC with Diff; Complete Time: 20:58 kb 04/17 20:10 Order name: Hepatic Function; Complete Time: 21:01 kb 04/17 20:10 Order name: Lipase; Complete Time: 21:01 kb 04/17 21:22 Order name: Urine Dipstick-Ancillary; Complete Time: 21:22 EDMS 04/17 21:23 Order name: Urine --Ancillary (enter results); Complete Time: 21:55 mw2 04/17 19:17 Order name: US Abdomen Limited; Complete Time: 19:53 kb 04/17 20:10 Order name: IV Saline Lock; Complete Time: 20:40 kb 04/17 21:02 Order name: CT Abd/Pelvis - IV Contrast Only kb 04/17 20:10 Order name: Labs collected and sent; Complete Time: 20:40 kb 04/17 21:08 Order name: Urine Dipstick-Ancillary (obtain specimen); Complete Time: 21:30 mw2 04/17 21:08 Order name: Urine Test (obtain specimen); Complete Time: 21:30 mw2 Administered Medications: 04/17 20:52 Drug: NS 0.9% 1000 ml Route: IV; Rate: 1000 ml; Site: right upper arm; jm8 22:59 Follow up: IV Status: Completed infusion jm8 :52 Drug: Zofran (Ondansetron) 4 mg Route: IVP; Site: right upper arm; jm8 21:54 Follow up: Response: No adverse reaction jm8 :52 Drug: TORadol (ketorolac) 30 mg Route: IVP; Site: right upper arm; jm8 21:54 Follow up: Response: No adverse reaction jm8 21:54 Drug: Zofran (Ondansetron) 4 mg Route: IVP; Site: right upper arm; jm8 22:59 Follow up: Response: No adverse reaction jm8 21:54 Drug: morphine 4 mg Route: IVP; Site: right upper arm; jm8 22:59 Follow up: Response: No adverse reaction [facility] Disposition: 04/18 02:02 Co-signature as Attending Physician, Adolfo Montero MD. froilan Disposition: 04/17/21 22:45 Discharged to Home. Impression: Upper abdominal pain, unspecified. - Condition is Stable. - Discharge Instructions: Abdominal Pain, Adult, [id number]. - Prescriptions for Bentyl 20 mg Oral Tablet - take 1 tablet by ORAL route every 6 hours As needed; 20 tablet. Zofran 4 mg Oral Tablet - take 1 tablet by ORAL route every 6 hours As needed; 20 tablet. - Medication Reconciliation Form, Thank You Letter, Antibiotic Education, Prescription Opioid Use form. - Follow up: Private Physician; When: 2 - 3 days; Reason: Recheck today's complaints, Continuance of care, Re-evaluation by your physician. Follow up: Emergency Department; When: As needed; Reason: Worsening of condition. Signatures: Dispatcher [employer] EDSahara Disla, CAROLINA CRAIG-Adolfo Stovall MD MD pkl Raji Dugan mw2 Laura Bhardwaj RN RN ll1 Tyson Tristan, RN RN jm8 Corrections: (The following items were deleted from the chart) 04/17 22:58 22:45 04/17/2021 22:45 Discharged to Home. Impression: Upper abdominal pain, jm8 unspecified. Condition is Stable. Forms are Medication Reconciliation Form, Thank You Letter, Antibiotic Education, Prescription Opioid Use. Follow up: Private Physician; When: 2 - 3 days; Reason: Recheck today's complaints, Continuance of care, Re-evaluation by your physician. Follow up: Emergency Department; When: As needed; Reason: Worsening of condition. kb
[2021-04-18 00:25] VITALS: BP 132/90; TEMP 98.2; O2SAT 99
--- NOTE | 2021-04-18 10:45 | RAD REPORT ---
EXAM DESCRIPTION: CT - Abdomen Pelvis W Contrast - 04/18/2021 6:22 am CLINICAL HISTORY: ABD PAIN COMPARISON: 01/03/2021 TECHNIQUE: CT of the abdomen and pelvis performed following IV administration of iodinated contras t. This exam was performed according to our departmental dose-optimization program, which includes au tomated exposure control, adjustment of the mA and/or kV according to patient size and/or use of iter ative reconstruction technique. FINDINGS: Lung Bases: The visualized lung bases are clear. Bones: No destructive bone lesions identified. Abdomen: Liver: The liver has normal size and density. No intrahepatic biliary dilatation. Gallbladder: No calcified gallstones. Spleen, Pancreas, and Adrenal Glands: The spleen, pancreas, and adrenal glands are unremarkable. Kidneys: No hydronephrosis or obstructing calculus. Vasculature: The aorta and IVC have normal caliber and position. The portal vein is patent. The pro ximal visceral and renal arteries are patent. Stomach: The stomach and duodenum have normal course. Other: No free intraperitoneal air. No free fluid or lymphadenopathy. Pelvis: Bladder: Urinary bladder is unremarkable. Bowel: No dilated loops of large or small bowel. Appendix: Prior appendectomy. Pelvis: Uterus is not enlarged. IMPRESSION: 1. No acute inflammatory or obstructive process identified. Electronically signed by: Adam Dow 04/17/2021 10:21 PM CDT Due to temporary technical issues with the PACS/Fluency reporting system, reports are being signed by the in house radiologist without review as a courtesy to ensure prompt reporting. The interpreting r adiologist is fully responsible for the content of the report.
== END 2021-04-17 22:58 | disposition home or self-care (01) ==
LOC: ER 17:34
DX: R10.11 Right upper quadrant pain (principal); F41.9 Anxiety disorder, unspecified; J45.909 Unspecified asthma, uncomplicated; F32.9 Major depressive disorder, single episode, unspecified; E03.9 Hypothyroidism, unspecified; M41.9 Scoliosis, unspecified
CPT/HCPCS: 96361; 85025; 80048; 36415; 81025; 80076; 81003; 83690; 74177; 76705; 96375; 96374; 99284; Q9967; J7030; J2405 ×2

== ENCOUNTER 2021-04-20 01:34 | Emergency (ER) | payer BC ==
[2021-04-20 02:05] LABS: Urine Blood Negative (Negative); Urine Glucose Negative (Negative); Urine Protein Negative (Negative)
[2021-04-20 02:17] LABS: Absolute Lymphocytes (CBC) 1.1 K/uL (0.7-4.9); Hematocrit 39.9 % (36.0-45.0); Lymphocytes % 19.7 % (15.3-44.8); MPV 8.9 fL (7.6-11.3); RBC Red Blood Cell Count 4.56 M/uL (3.86-4.86)
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
[2021-04-20 02:26] LABS: Barbiturates NEGATIVE (NEGATIVE); Benzodiazepines NEGATIVE (NEGATIVE); Cocaine NEGATIVE (NEGATIVE); METHAMPHETAM NEGATIVE (NEGATIVE); Methadone NEGATIVE (NEGATIVE); Opiates NEGATIVE (NEGATIVE); Phencyclidine NEGATIVE (NEGATIVE); Protime INR 0.91; THC Cannibis NEGATIVE (NEGATIVE)
[2021-04-20] MEDS ORDERED: NA CHLORIDE 0.9% 1,000 ML ONE (02:28)
[2021-04-20 02:41] LABS: ALT/SGPT 46 U/L (12-78); AST/SGOT 25 U/L (15-37); Albumin 3.9 g/dL (3.4-5.0); Alkaline Phosphatase 79 U/L (45-117); BUN Blood Urea Nitrogen 9 mg/dL (7-18); Bicarbonate 21 mmol/L (21-32); Bilirubin Direct < 0.1 mg/dL (0-0.2); Bilirubin Total 0.2 mg/dL (0.2-1.0); Glucose Level 92 mg/dL (74-106); Potassium 3.5 mmol/L (3.5-5.1); Protein, Total 7.4 g/dL (6.4-8.2); Sodium Level 141 mmol/L (136-145)
[2021-04-20 02:56] VITALS: TEMP 97.7
[2021-04-20 02:58] VITALS: BP 107/62; O2SAT 100
== END 2021-04-20 02:51 | disposition home or self-care (01) ==
LOC: ER 01:34
DX: F10.129 Alcohol abuse with intoxication, unspecified (principal); Z88.1 Allergy status to other antibiotic agents; Z88.8 Allergy status to other drugs, medicaments and biological substances
CPT/HCPCS: 85025; 80048; 36415; 80320; 80329 ×2; 85610; 80076; 85730; 81003; 80307; J7030

== ENCOUNTER 2021-05-01 23:50 | Emergency (ER) | payer BC ==
[2021-05-02 02:30] LABS: Urine Blood Negative (Negative); Urine Glucose Negative (Negative); Urine Protein Negative (Negative)
[2021-05-02] MEDS ORDERED: FAMOTIDINE 20 MG/2 ML VIAL IV ONE (02:40)
[2021-05-02] MEDS ORDERED: MORPHINE 4 MG/ML SYR ONE (02:40)
[2021-05-02] MEDS ORDERED: NA CHLORIDE 0.9% 1,000 ML ONE (02:40)
[2021-05-02] MEDS ORDERED: ONDANSETRON 4 MG/2 ML VIAL ONE (02:40)
[2021-05-02 03:34] LABS: Absolute Lymphocytes (CBC) 1.6 K/uL (0.7-4.9); Basophils % 0.7 % (0-1.3); Hematocrit 36.8 % (36.0-45.0); Lymphocytes % 19.2 % (15.3-44.8); MPV 9.3 fL (7.6-11.3); RBC Red Blood Cell Count 4.23 M/uL (3.86-4.86)
[2021-05-02 03:43] LABS: ALT/SGPT 32 U/L (12-78); AST/SGOT 15 U/L (15-37); Albumin 3.5 g/dL (3.4-5.0); Alkaline Phosphatase 70 U/L (45-117); BUN Blood Urea Nitrogen 7 mg/dL (7-18); Bicarbonate 23 mmol/L (21-32); Bilirubin Direct < 0.1 mg/dL (0-0.2); Bilirubin Total 0.2 mg/dL (0.2-1.0); Glucose Level 90 mg/dL (74-106); Lipase 38 U/L (73-393); Potassium 3.7 mmol/L (3.5-5.1); Protein, Total 6.9 g/dL (6.4-8.2); Sodium Level 139 mmol/L (136-145)
--- NOTE | 2021-05-02 04:52 | EDPHYS ---
Physician Documentation [facility] Name: Adelaide Trinidad Age: 21 yrs Sex: Female : 2000 Arrival Date: 05/01/2021 Time: 23:53 Bed 26 Private MD: ED Physician Ly Mcgraw HPI: 05/02 01:52 This 21 yrs old Female presents to ER via Wheelchair with complaints of ma2 Abdominal Pain. 01:52 Onset: The symptoms/episode began/occurred gradually, 2 day(s) ago. Associated signs ma2 and symptoms: Pertinent negatives: anorexia, constipation, diarrhea, headache. Severity of pain: At its worst the pain was mild in the emergency department the pain is unchanged. The patient has experienced similar episodes in the past. 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 - Social history:: Smoking status: Patient denies any tobacco usage or history of. - Family history:: not pertinent. ROS: 01:52 Constitutional: Negative for fever, chills, and weight loss. ma2 01:52 All other systems are negative. Exam: 01:52 Constitutional: This is a well developed, well nourished patient who is awake, alert, ma2 and in no acute distress. Chest/axilla: Normal chest wall appearance and motion. Nontender with no deformity. No lesions are appreciated. Cardiovascular: Regular rate and rhythm with a normal S1 and S2. No gallops, murmurs, or rubs. Normal PMI, no JVD. No pulse deficits. Respiratory: Lungs have equal breath sounds bilaterally, clear to auscultation and percussion. No rales, rhonchi or wheezes noted. No increased work of breathing, no retractions or nasal flaring. Abdomen/GI: Soft, non-tender, with normal bowel sounds. No distension or tympany. No guarding or rebound. No evidence of tenderness throughout. Skin: Warm, dry with normal turgor. Normal color with no rashes, no lesions, and no evidence of cellulitis. MS/ Extremity: Pulses equal, no cyanosis. Neurovascular intact. Full, normal range of motion. Neuro: Awake and alert, GCS 15, oriented to person, place, time, and situation. Cranial nerves II-XII grossly intact. Motor strength 5/5 in all extremities. Sensory grossly intact. Cerebellar exam normal. Normal gait. Vital Signs: 00:02 BP 143 / 66; Pulse 118; Resp 18 S; Temp 98.4(O); Pulse Ox 99% on R/A; Weight 86.18 kg bb (R); Height 4 ft. 11 in. (149.86 cm) (R); Pain 10/10; 02:32 BP 111 / 59; Pulse 81; Resp 17; Pulse Ox 99% on R/A; Pain 9/10; ap3 03:46 BP 109 / 55; Pulse 89; Resp 16 S; Pulse Ox 100% on R/A; Pain 7/10; bb 05:06 BP 116 / 70; Pulse 80; Resp 16 S; Temp 97.6(O); Pulse Ox 99% on R/A; bb 00:02 Body Mass Index 38.37 (86.18 kg, 149.86 cm) MDM: 01:31 Patient medically screened. [facility] 01:52 Differential diagnosis: gastritis, gastroesophageal reflux disease, Hepatitis, ma2 Irritable bowel syndrome, Menorrhagia. 04:51 Data reviewed: vital signs, nurses notes. Counseling: I had a detailed discussion with maBrandie the patient and/or guardian regarding: the historical points, exam findings, and any diagnostic results supporting the discharge/admit diagnosis, the presence of at least one elevated blood pressure reading (>120/80) during this emergency department visit, the need for outpatient follow up. Response to treatment: the patient's symptoms have resolved after treatment. 05/02 01:28 Order name: Basic Metabolic Panel co2 05/02 01:28 Order name: CBC with Diff; Complete Time: 03:39 ma2 05/02 01:28 Order name: Hepatic Function; Complete Time: 03:45 ma2 05/02 01:28 Order name: Lipase; Complete Time: 03:45 ma2 05/02 01:28 Order name: Basic Metabolic Panel; Complete Time: 03:45 EDMS 05/02 02:30 Order name: Urine Dipstick-Ancillary; Complete Time: 03:39 EDMS 05/02 01:28 Order name: IV Saline Lock; Complete Time: 02:12 ma2 05/02 01:28 Order name: CT Abd/Pelvis - IV Contrast Only co2 05/02 02:34 Order name: Urine --Ancillary (enter results); Complete Time: 03:39 2 05/02 01:28 Order name: Labs collected and sent; Complete Time: 02:12 co2 05/02 01:28 Order name: Urine Dipstick-Ancillary (obtain specimen); Complete Time: 02:31 co2 05/02 01:28 Order name: Urine Test (obtain specimen); Complete Time: 02:31 ma2 Administered Medications: 02:31 Drug: Zofran (Ondansetron) 4 mg Route: IVP; Site: right wrist; ap3 03:30 Follow up: Response: No adverse reaction bb 02:31 Drug: morphine 4 mg Route: IVP; Site: right wrist; ap3 03:30 Follow up: Response: No adverse reaction; RASS: Alert and Calm (0) bb 02:32 Drug: NS 0.9% 1000 ml Route: IV; Rate: 1 bolus; Site: right wrist; ap3 03:30 Follow up: IV Status: Completed infusion; IV Intake: 1000ml bb 02:32 Drug: Pepcid (famotidine) 20 mg Route: IVP; Site: right wrist; ap3 03:30 Follow up: Response: No adverse reaction bb 04:58 Drug: GI Cocktail without - (Maalox Suspension 30 ml, Lidocaine Liquid 2 % 15 bb ml) Route: PO; 05:05 Follow up: Response: No adverse reaction bb Disposition Summary: 05/02/21 04:51 Discharge Ordered Location: Home ma2 Condition: Stable ma2 Diagnosis - Upper abdominal pain, unspecified ma2 - Acute cystitis ma2 Followup: ma2 - With: Private Physician - When: Tomorrow - Reason: If symptoms return, Continuance of care Discharge Instructions: - Discharge Summary Sheet ma2 - Urinary Tract Infection, Adult, [id number] ma2 - Abdominal Pain, Adult, [id number] ma2 Forms: - Medication Reconciliation Form ma2 - Thank You Letter ma2 - Antibiotic Education ma2 - Prescription Opioid Use ma2 Prescriptions: - Cipro 500 mg Oral Tablet - take 1 tablet by ORAL route every 12 hours for 7 days; 14 tablet; Refills: 0, ma2 Product Selection Permitted Signatures: Dispatcher [employer] Aria Fernandse RN RN bb Ly Mcgraw MD MD ma2 Aletha Kidd RN RN ap3
--- NOTE | 2021-05-02 04:52 | ER ---
Nurse's Notes [facility] Name: Adelaide Trinidad Age: 21 yrs Sex: Female : 2000 Arrival Date: 05/01/2021 Time: 23:53 Bed 26 Private MD: Diagnosis: Upper abdominal pain, unspecified;Acute cystitis Presentation: 05/02 00:02 Chief complaint: Patient states: she had sudden onset of severe abdominal pain tonight bb has procedure scheduled Saturday but the pain is 10/10. Coronavirus screen: At this time, the client does not indicate any symptoms associated with coronavirus-19. Ebola Screen: No symptoms or risks identified at this time. Initial Sepsis Screen: Does the patient meet any 2 criteria? No. Patient's initial sepsis screen is negative. Does the patient have a suspected source of infection? No. Patient's initial sepsis screen is negative. Risk Assessment: Do you want to hurt yourself or someone else? Patient reports no desire to harm self or others. Onset of symptoms was May 02, 2021. 00:02 Method Of Arrival: Wheelchair bb 00:02 Acuity: LUIZ 3 bb Triage Assessment: 00:03 General: Appears in no apparent distress. Behavior is anxious, crying. Pain: Complains bb of pain in abdomen Pain currently is 10 out of 10 on a pain scale. Neuro: Level of Consciousness is awake, alert, obeys commands, Oriented to person, place, time, situation. Cardiovascular: Capillary refill < 3 seconds Patient's skin is warm and dry. Respiratory: Respiratory effort is even, unlabored, Respiratory pattern is regular. GI: Reports lower abdominal pain, upper abdominal pain. Derm: Skin is pink, warm \T\ dry. Musculoskeletal: Circulation, motion, and sensation intact. 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 - Social history:: Smoking status: Patient denies any tobacco usage or history of. - Family history:: not pertinent. Screenin:16 Abuse screen: Denies threats or abuse. Nutritional screening: No deficits noted. ap3 Tuberculosis screening: No symptoms or risk factors identified. Fall Risk None identified. Assessment: 02:13 General: patient provided with specimen cup and education on proper urine collection. ap3 patient verbalized understaning. 02:14 General: Appears in no apparent distress. uncomfortable, Behavior is calm, cooperative, ap3 appropriate for age. Pain: Complains of pain in abdomen Pain does not radiate. Pain currently is 9 out of 10 on a pain scale. at worst was 10 out of 10 on a pain scale. Pain began 1 day ago. Neuro: Level of Consciousness is awake, alert, obeys commands, Oriented to person, place, time, situation, Appropriate for age. Cardiovascular: Denies chest pain, shortness of breath, Capillary refill < 3 seconds. Respiratory: Airway is patent Respiratory effort is even, unlabored, Respiratory pattern is regular, symmetrical. GI: Bowel sounds present X 4 quads. Abd is soft X 4 quads Abdomen is tender to palpation in right lower quadrant and left lower quadrant Reports lower abdominal pain. : No signs and/or symptoms were reported regarding the genitourinary system. EENT: No signs and/or symptoms were reported regarding the EENT system. 03:30 Reassessment: Patient is alert, oriented x 3, equal unlabored respirations, skin bb warm/dry/pink. pt returned from CT via wheelchair, IV intact. 05:06 Reassessment: Patient is alert, oriented x 3, equal unlabored respirations, skin bb warm/dry/pink. pt verbalized understanding of and agrees to plan of care discharge instructions given pt ambulated with steady gait to exit. Vital Signs: 00:02 BP 143 / 66; Pulse 118; Resp 18 S; Temp 98.4(O); Pulse Ox 99% on R/A; Weight 86.18 kg bb (R); Height 4 ft. 11 in. (149.86 cm) (R); Pain 10/10; 02:32 BP 111 / 59; Pulse 81; Resp 17; Pulse Ox 99% on R/A; Pain 9/10; ap3 03:46 BP 109 / 55; Pulse 89; Resp 16 S; Pulse Ox 100% on R/A; Pain 7/10; bb 05:06 BP 116 / 70; Pulse 80; Resp 16 S; Temp 97.6(O); Pulse Ox 99% on R/A; bb 00:02 Body Mass Index 38.37 (86.18 kg, 149.86 cm) bb ED Course: 05/01 23:53 Patient arrived in ED. bp1 05/02 00:03 Triage completed. bb 00:03 Arm band placed on Patient placed in waiting room, Patient notified of wait time. bb 01:15 Ly Mcgraw MD is Attending Physician. ma2 01:32 Aletha Kidd, RN is Primary Nurse. ap3 02:12 Inserted saline lock: 22 gauge in right wrist, using aseptic technique. Blood collected.ap3 02:16 Patient has correct armband on for positive identification. Bed in low position. Call ap3 light in reach. Side rails up X 1. Adult w/ patient. Pulse ox on. NIBP on. Door closed. Noise minimized. 03:27 CT Abd/Pelvis - IV Contrast Only In Process Unspecified. EDMS 03:42 Primary Nurse role handed off by Aletha Kidd, JAZ bb 03:42 Aria Hernandez RN is Primary Nurse. bb 05:07 No provider procedures requiring assistance completed. IV discontinued, intact, bb bleeding controlled, No redness/swelling at site. Pressure dressing applied. Administered Medications: 02:31 Drug: Zofran (Ondansetron) 4 mg Route: IVP; Site: right wrist; ap3 03:30 Follow up: Response: No adverse reaction bb 02:31 Drug: morphine 4 mg Route: IVP; Site: right wrist; ap3 03:30 Follow up: Response: No adverse reaction; RASS: Alert and Calm (0) bb 02:32 Drug: NS 0.9% 1000 ml Route: IV; Rate: 1 bolus; Site: right wrist; ap3 03:30 Follow up: IV Status: Completed infusion; IV Intake: 1000ml bb 02:32 Drug: Pepcid (famotidine) 20 mg Route: IVP; Site: right wrist; ap3 03:30 Follow up: Response: No adverse reaction bb 04:58 Drug: GI Cocktail without - (Maalox Suspension 30 ml, Lidocaine Liquid 2 % 15 bb ml) Route: PO; 05:05 Follow up: Response: No adverse reaction bb Intake: 03:30 IV: 1000ml; Total: 1000ml. bb Outcome: 04:51 Discharge ordered by . larry 05:07 Discharged to home ambulatory, with family. bb 05:07 Condition: stable 05:07 Discharge instructions given to patient, Instructed on discharge instructions, follow up and referral plans. medication usage, Demonstrated understanding of instructions, follow-up care, medications, Prescriptions given X 1. 05:07 Patient left the ED. bb Signatures: Dispatcher [employer] Aria Fernandes RN RN bb Alzahri, Mohammad, MD MD ma2 Aletha Kidd RN RN ap3 Nohelia Blanton [facility]
[2021-05-02] MEDS ORDERED: MAGNES/ALUMIN/SIMET 30ML UCUP ONE (05:14)
[2021-05-02] MEDS ORDERED: LIDOCAINE VISCOUS 2% SOLN 15 ML UDC ONE (05:14)
[2021-05-02 05:21] VITALS: BP 116/70; TEMP 97.6; O2SAT 99
--- NOTE | 2021-05-02 13:08 | RAD REPORT ---
EXAM DESCRIPTION: CT - Abdomen Pelvis W Contrast - 05/02/2021 6:42 am CLINICAL HISTORY: ABD PAIN COMPARISON: 04/17/2021 TECHNIQUE: CT of the abdomen and pelvis performed following IV administration of iodinated contras t. This exam was performed according to our departmental dose-optimization program, which includes au tomated exposure control, adjustment of the mA and/or kV according to patient size and/or use of iter ative reconstruction technique. FINDINGS: Lung Bases: The visualized lung bases are clear. Bones: No destructive bone lesions identified. Abdomen: Liver: The liver has normal size and density. No intrahepatic biliary dilatation. Gallbladder: No calcified gallstones. Spleen, Pancreas, and Adrenal Glands: The spleen, pancreas, and adrenal glands are unremarkable. Kidneys: No hydronephrosis or obstructing calculus. Vasculature: The aorta and IVC have normal caliber and position. The portal vein is patent. The pro ximal visceral and renal arteries are patent. Stomach: The stomach and duodenum have normal course. Other: No free intraperitoneal air. Small amount of free fluid. Pelvis: Bladder: Urinary bladder is unremarkable. Bowel: No dilated loops of large or small bowel. Appendix: Prior appendectomy. Pelvis: Uterus is not enlarged. IMPRESSION: 1. Small amount of free fluid in the pelvis. This may be physiologic. 2. No other acute abnormality identified in the abdomen or pelvis. Electronically signed by: Adam Dow 05/02/2021 4:32 AM CDT Due to temporary technical issues with the PACS/Fluency reporting system, reports are being signed by the in house radiologists without review as a courtesy to insure prompt reporting. The interpreting radiologist is fully responsible for the content of the report.
== END 2021-05-02 05:07 | disposition home or self-care (01) ==
LOC: ER 23:50
DX: N30.00 Acute cystitis without hematuria (principal); E03.9 Hypothyroidism, unspecified; F41.8 Other specified anxiety disorders; Z88.1 Allergy status to other antibiotic agents; Z88.8 Allergy status to other drugs, medicaments and biological substances
CPT/HCPCS: 85025; 80048; 36415; 81025; 82565; 80076; 81003; 83690; 74177; Q9967; J7030; J2405; 96361; 96374; 96375; 99284

== ENCOUNTER 2021-06-26 02:38 | Emergency (ER) | payer BC ==
--- NOTE | 2021-06-26 03:39 | ER ---
Nurse's Notes [facility] Name: Adelaide Trinidad Age: 21 yrs Sex: Female : 2000 Arrival Date: 06/26/2021 Time: 02:40 Bed Waiting Private MD: Diagnosis: ED Course: 06/26 02:40 Patient arrived in ED. 03:38 Patient's name was called from ER lobby. No response. Unable to locate patient. Will bb disposition as left without being seen by a provider. Administered Medications: No medications were administered Outcome: 03:38 Patient left the ED. bb Signatures: Aria Hernandez RN RN bb Yumiko Coleman
== END 2021-06-26 03:38 | disposition left against medical advice (07) ==
LOC: ER 02:38
DX: Z02.9 Encounter for administrative examinations, unspecified (principal)

== ENCOUNTER 2021-07-20 04:28 | Emergency (ER) | payer BC ==
[2021-07-20 05:46] LABS: Urine Blood Negative (Negative); Urine Glucose Negative (Negative); Urine Protein Negative (Negative); Urine Specific Gravity 1.015 (1.005-1.030)
[2021-07-20] MEDS ORDERED: MORPHINE 4 MG/ML SYR ONE (05:56)
[2021-07-20] MEDS ORDERED: ONDANSETRON 4 MG/2 ML VIAL ONE (05:56)
[2021-07-20 06:05] LABS: Absolute Lymphocytes (CBC) 1.6 K/uL (0.7-4.9); Hematocrit 40.2 % (36.0-45.0); Lymphocytes % 25.8 % (15.3-44.8); RBC Red Blood Cell Count 4.63 M/uL (3.86-4.86)
[2021-07-20 06:26] LABS: ALT/SGPT 40 U/L (12-78); AST/SGOT 16 U/L (15-37); Albumin 4.2 g/dL (3.4-5.0); Alkaline Phosphatase 67 U/L (45-117); BUN Blood Urea Nitrogen 5 mg/dL (7-18); Bicarbonate 24 mmol/L (21-32); Bilirubin Direct < 0.1 mg/dL (0-0.2); Bilirubin Total 0.3 mg/dL (0.2-1.0); Glucose Level 95 mg/dL (74-106); Lipase 56 U/L (73-393); Potassium 3.7 mmol/L (3.5-5.1); Protein, Total 7.6 g/dL (6.4-8.2); Sodium Level 142 mmol/L (136-145)
--- NOTE | 2021-07-20 06:31 | ER ---
Nurse's Notes [facility] Name: Adelaide Trinidad Age: 21 yrs Sex: Female : 2000 Arrival Date: 07/20/2021 Time: 04:32 Bed 20 Private MD: Diagnosis: Abdominal tenderness;Gastritis, unspecified;UTI/ Urinary tract infection, site not specified Presentation: 07/20 04:41 Chief complaint: Patient states: left side abd/flank pain x 2. Coronavirus screen: df1 Vaccine status: Patient reports being unvaccinated. The client reports previous COVID testing was negative. Date of collection: July 10, 2021. Ebola Screen: Patient negative for fever greater than or equal to 101.5 degrees Fahrenheit, and additional compatible Ebola Virus Disease symptoms. Initial Sepsis Screen: Does the patient meet any 2 criteria? No. Patient's initial sepsis screen is negative. Risk Assessment: Do you want to hurt yourself or someone else? Patient reports no desire to harm self or others. Note Pt states left side abd/flank pain x 2 days with N/D and difficulty voiding. Motrin at 0200. H/O kidney stones. 04:41 Method Of Arrival: Wheelchair df1 04:41 Acuity: LUIZ 3 df1 Triage Assessment: 06:35 General: Appears uncomfortable, well nourished. General: Reports feeling ill for 1-2 mr2 days. General: Behavior is calm, cooperative. Pain: Complains of pain in abdomen Is intermittent, Goal of pain control is to sleep comfortably. 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 df1 Historical: - Allergies: 04:44 Bactrim; df1 04:44 Zithromax; df1 04:44 Doxycycline; df1 04:44 Zosyn; df1 - Home Meds: 04:44 Zyrtec 10 mg oral tab once daily [Active]; albuterol sulfate 90 mcg/actuation Inhl HFAA df1 2 puffs q4hrs prn [Active]; levothyroxine 50 mcg tab 1 tab once daily [Active]; Prozac 10 mg Oral cap 1 cap once daily [Active]; Singulair 10 mg Oral tab 1 tab once daily [Active]; Wellbutrin 150 mg Oral 150 mg daily [Active]; - PSHx: 04:45 Appendectomy; Operative procedure on knee; df1 - Immunization history:: Adult Immunizations up to date, Client reports having NOT received the Covid vaccine. - Social history:: Smoking status: Patient denies any tobacco usage or history of. Patient/guardian denies using. - Family history:: not pertinent. Assessment: 05:00 General: Appears in no apparent distress. uncomfortable, Behavior is calm, cooperative, jb4 appropriate for age. Pain: Complains of pain in left low back Pain radiates to left lower quadrant Pain currently is 10 out of 10 on a pain scale. Quality of pain is described as stabbing. Neuro: Level of Consciousness is awake, alert, obeys commands, Oriented to person, place, time, situation. Cardiovascular: Patient's skin is warm and dry. Respiratory: Airway is patent Respiratory effort is even, unlabored, Respiratory pattern is regular, symmetrical. GI: Reports lower abdominal pain. : No signs and/or symptoms were reported regarding the genitourinary system. EENT: No signs and/or symptoms were reported regarding the EENT system. Derm: Skin is intact, Skin is pink, warm \T\ dry. 05:00 Musculoskeletal: Circulation, motion, and sensation intact. Range of motion: intact in jb4 all extremities. 06:18 Reassessment: Patient appears in no apparent distress at this time. Patient and/or jb4 family updated on plan of care and expected duration. Pain level reassessed. Patient is alert, oriented x 3, equal unlabored respirations, skin warm/dry/pink. Vital Signs: 04:41 BP 137 / 86; Pulse 91; Resp 18; Temp 98.9; Pulse Ox 98% on R/A; Weight 86.18 kg; Height df1 4 ft. 11 in. (149.86 cm); Pain 10/10; 07:32 BP 120 / 70; Pulse 72; Resp 16; Pulse Ox 96% ; Pain 0/10; tc5 04:41 Body Mass Index 38.37 (86.18 kg, 149.86 cm) df1 ED Course: 04:32 Patient arrived in ED. bp1 04:44 Triage completed. df1 04:55 Lauri Okeefe RN is Primary Nurse. jb4 04:58 Juan A Louie MD is Attending Physician. antionette 05:35 Initial lab(s) drawn, by me, sent to lab. Inserted saline lock: 20 gauge in right jb4 antecubital area, using aseptic technique. Blood collected. 06:00 CT Stone Protocol In Process Unspecified. EDMS 06:25 [facility] 06:31 Shahbaz Phan MD is Referral Physician. antionette Administered Medications: 05:38 Drug: Zofran (Ondansetron) 4 mg Route: IVP; Site: right antecubital; jb4 07:32 Follow up: Response: No adverse reaction tc5 05:40 Drug: morphine 4 mg Route: IVP; Site: right antecubital; jb4 07:33 Follow up: Response: No adverse reaction; Pain is decreased tc5 07:29 Drug: Rocephin (cefTRIAXone) 1 grams Route: IV; Rate: per protocol; Site: right hand; tc5 Outcome: 06:31 Discharge ordered by . [facility] 07:41 Patient left the ED. tc5 Signatures: Dispatcher [employer] EDDC Sahara Lynn FNP-C IMPORT EXPORT CLERK-Juan A Mcqueen MD MD cha Bryson, James, RN RN jb4 Nohelia Blanton Mike, RN RN mr2 Smiley Tijerina df1 Bell Núñez RN RN tc5
--- NOTE | 2021-07-20 06:31 | EDPHYS ---
Physician Documentation [facility] Name: Adelaide Trinidad Age: 21 yrs Sex: Female : 2000 Arrival Date: 07/20/2021 Time: 04:32 Bed 20 Private MD: Juan A Abreu HPI: 07/20 05:09 This 21 yrs old Female presents to ER via Wheelchair with complaints of antionette Abdominal Pain. 05:09 The patient presents with abdominal pain in the upper abdomen, in the left upper antionette quadrant, abdominal distention in the upper abdomen, in the lower abdomen. Onset: The symptoms/episode began/occurred this morning. The patient complains of pain in the left mid back. The pain radiates to the left low back and left mid back. Onset: The symptoms/episode began/occurred today. Modifying factors: The symptoms are alleviated by nothing. the symptoms are aggravated by nothing. The symptoms do not radiate. Associated signs and symptoms: The patient has no apparent associated signs or symptoms. Modifying factors: The symptoms are alleviated by nothing, the symptoms are aggravated by nothing. 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 df1 Historical: - Allergies: 04:44 Bactrim; df1 04:44 Zithromax; df1 04:44 Doxycycline; df1 04:44 Zosyn; df1 - Home Meds: 04:44 Zyrtec 10 mg oral tab once daily [Active]; albuterol sulfate 90 mcg/actuation Inhl HFAA df1 2 puffs q4hrs prn [Active]; levothyroxine 50 mcg tab 1 tab once daily [Active]; Prozac 10 mg Oral cap 1 cap once daily [Active]; Singulair 10 mg Oral tab 1 tab once daily [Active]; Wellbutrin 150 mg Oral 150 mg daily [Active]; - PSHx: 04:45 Appendectomy; Operative procedure on knee; df1 - Immunization history:: Adult Immunizations up to date, Client reports having NOT received the Covid vaccine. - Social history:: Smoking status: Patient denies any tobacco usage or history of. Patient/guardian denies using. - Family history:: not pertinent. ROS: 05:09 Constitutional: Negative for fever, chills, and weight loss, Eyes: Negative for injury, antionette pain, redness, and discharge, ENT: Negative for injury, pain, and discharge, Neck: Negative for injury, pain, and swelling, Cardiovascular: Negative for chest pain, palpitations, and edema, Respiratory: Negative for shortness of breath, cough, wheezing, and pleuritic chest pain, : Negative for injury, bleeding, discharge, and swelling, MS/Extremity: Negative for injury and deformity, Skin: Negative for injury, rash, and discoloration, Neuro: Negative for headache, weakness, numbness, tingling, and seizure, Psych: Negative for depression, anxiety, suicide ideation, homicidal ideation, and hallucinations, Allergy/Immunology: Negative for hives, rash, and allergies, Endocrine: Negative for neck swelling, polydipsia, polyuria, polyphagia, and marked weight changes, Hematologic/Lymphatic: Negative for swollen nodes, abnormal bleeding, and unusual bruising. 05:09 Abdomen/GI: Positive for abdominal pain, nausea and vomiting, nausea, vomiting, of the posterior aspect of left lateral abdomen and left upper quadrant. Exam: 05:09 Constitutional: This is a well developed, well nourished patient who is awake, alert, antionette and in no acute distress. Head/Face: Normocephalic, atraumatic. Eyes: Pupils equal round and reactive to light, extra-ocular motions intact. Lids and lashes normal. Conjunctiva and sclera are non-icteric and not injected. Cornea within normal limits. Periorbital areas with no swelling, redness, or edema. ENT: Nares patent. No nasal discharge, no septal abnormalities noted. Tympanic membranes are normal and external auditory canals are clear. Oropharynx with no redness, swelling, or masses, exudates, or evidence of obstruction, uvula midline. Mucous membranes moist. Neck: Trachea midline, no thyromegaly or masses palpated, and no cervical lymphadenopathy. Supple, full range of motion without nuchal rigidity, or vertebral point tenderness. No Meningismus. Chest/axilla: Normal chest wall appearance and motion. Nontender with no deformity. No lesions are appreciated. Cardiovascular: Regular rate and rhythm with a normal S1 and S2. No gallops, murmurs, or rubs. Normal PMI, no JVD. No pulse deficits. Respiratory: Lungs have equal breath sounds bilaterally, clear to auscultation and percussion. No rales, rhonchi or wheezes noted. No increased work of breathing, no retractions or nasal flaring. Back: No spinal tenderness. No costovertebral tenderness. Full range of motion. Skin: Warm, dry with normal turgor. Normal color with no rashes, no lesions, and no evidence of cellulitis. MS/ Extremity: Pulses equal, no cyanosis. Neurovascular intact. Full, normal range of motion. Neuro: Awake and alert, GCS 15, oriented to person, place, time, and situation. Cranial nerves II-XII grossly intact. Motor strength 5/5 in all extremities. Sensory grossly intact. Cerebellar exam normal. Normal gait. Psych: Awake, alert, with orientation to person, place and time. Behavior, mood, and affect are within normal limits. 05:09 Abdomen/GI: Inspection: abdomen appears normal, Bowel sounds: normal, Palpation: mild abdominal tenderness, in the posterior aspect of left lateral abdomen and left upper quadrant, Liver: no appreciated palpable abnormalities, Hernia: not appreciated. Vital Signs: 04:41 BP 137 / 86; Pulse 91; Resp 18; Temp 98.9; Pulse Ox 98% on R/A; Weight 86.18 kg; Height df1 4 ft. 11 in. (149.86 cm); Pain 10/10; 07:32 BP 120 / 70; Pulse 72; Resp 16; Pulse Ox 96% ; Pain 0/10; tc5 04:41 Body Mass Index 38.37 (86.18 kg, 149.86 cm) df1 MDM: 04:58 Patient medically screened. [facility] 05:14 Data reviewed: vital signs, nurses notes. [facility] 07/20 04:56 Order name: Basic Metabolic Panel; Complete Time: 06:30 [facility] 07/20 04:56 Order name: CBC with Diff; Complete Time: 06:20 [facility] 07/20 04:56 Order name: Hepatic Function; Complete Time: 06:30 [facility] 07/20 04:56 Order name: Lipase; Complete Time: 06:30 [facility] 07/20 05:08 Order name: Urine Culture [facility] 07/20 05:09 Order name: Urine Culture [facility] 07/20 04:56 Order name: IV Saline Lock; Complete Time: 05:47 [facility] 07/20 04:56 Order name: Labs collected and sent; Complete Time: 05:47 [facility] 07/20 05:09 Order name: CT Stone Protocol [facility] 07/20 05:46 Order name: Urine Dipstick-Ancillary; Complete Time: 05:47 EDMS 07/20 05:47 Order name: Urine --Ancillary (enter results) 07/20 05:08 Order name: Urine Dipstick-Ancillary (obtain specimen); Complete Time: 05:47 antionette 07/20 05:08 Order name: Urine Test (obtain specimen); Complete Time: 05:47 [facility] Administered Medications: 05:38 Drug: Zofran (Ondansetron) 4 mg Route: IVP; Site: right antecubital; jb4 07:32 Follow up: Response: No adverse reaction tc5 05:40 Drug: morphine 4 mg Route: IVP; Site: right antecubital; jb4 07:33 Follow up: Response: No adverse reaction; Pain is decreased tc5 07:29 Drug: Rocephin (cefTRIAXone) 1 grams Route: IV; Rate: per protocol; Site: right hand; tc5 Disposition Summary: 07/20/21 06:31 Discharge Ordered Location: Home [facility] Problem: new antionette Symptoms: have improved antionette Condition: Stable antionette Diagnosis - Abdominal tenderness antionette - Gastritis, unspecified antionette - UTI/ Urinary tract infection, site not specified antionette Followup: antionette - With: Private Physician - When: 2 - 3 days - Reason: Recheck today's complaints, Continuance of care, Re-evaluation by your physician Followup: antionette - With: - When: 2 - 3 days - Reason: Recheck today's complaints, Continuance of care, Re-evaluation by your physician Discharge Instructions: - Discharge Summary Sheet antionette - Abdominal Pain, Adult antionette - Gastritis, Adult antionette - Gastritis, Adult, [id number] antionette - Urinary Tract Infection, Adult antionette - Urinary Tract Infection, Adult, [id number] antionette - Abdominal Pain, Adult, [id number] [facility] Forms: - Medication Reconciliation Form [facility] - Thank You Letter [facility] - Antibiotic Education [facility] - Prescription Opioid Use [facility] Prescriptions: - Pepcid 20 mg Oral Tablet - take 1 tablet by ORAL route every 12 hours for 15 days; 30 tablet; Refills: 0, [facility] Product Selection Permitted - Zofran 4 mg Oral Tablet - take 1 tablet by ORAL route every 12 hours As needed; 20 tablet; Refills: 0, [facility] Product Selection Permitted - dicyclomine 20 mg Oral Tablet - take 1 tablet by ORAL route 4 times per day; 20 tablet; Refills: 0, Product [facility] Selection Permitted - Macrobid 100 mg Oral Capsule - take 1 capsule by ORAL route every 12 hours for 7 days; 14 capsule; Refills: 0, [facility] Product Selection Permitted Signatures: Dispatcher [employer] Juan A Encarnacion MD MD cha Bryson, James RN RN jb4 Smiley Tijerina df1 Bell Núñez RN RN tc5
[2021-07-20] MEDS ORDERED: CEFTRIAXONE 1000 MG/VIAL ONE (07:38)
[2021-07-20 07:49] VITALS: TEMP 98.9
[2021-07-20 07:50] VITALS: BP 120/70; O2SAT 96
[2021-07-20 09:27] LABS: Urine Specific Gravity/Preg 1.015 (1.005-1.030)
--- NOTE | 2021-07-20 12:06 | RAD REPORT ---
EXAM DESCRIPTION: CT - Stone Protocol - 07/20/2021 6:23 am CLINICAL HISTORY: Abdominal distention;Flank pain COMPARISON: 05/02/2021 TECHNIQUE: CT of the abdomen and pelvis without IV contrast. Evaluation of the solid organs and vasc ulature is suboptimal due to lack of IV contrast. This exam was performed according to our department al dose-optimization program, which includes automated exposure control, adjustment of the mA and/or kV according to patient size and/or use of iterative reconstruction technique. FINDINGS: Lung Bases: The visualized lung bases are clear. Bones: No destructive bone lesions identified. Abdomen: Liver: The liver has normal size and decreased density. Gallbladder: No calcified gallstones. Spleen, Pancreas, and Adrenal Glands: The spleen, pancreas, and adrenal glands are unremarkable. Kidneys: The kidneys have normal size without evidence of hydronephrosis. No obstructing ureteral xenia culi. Vasculature: The aorta and IVC have normal caliber and position. Stomach: The stomach and duodenum have normal course. Other: No free intraperitoneal air. No free fluid or lymphadenopathy. Tiny fat-containing umbilic al hernia. Pelvis: Bladder: Urinary bladder is unremarkable. Bowel: No dilated loops of large or small bowel. Appendix: Prior appendectomy. Pelvis: Uterus is not enlarged. IMPRESSION: 1. No acute inflammatory or obstructive process identified. 2. Hepatic steatosis. Electronically signed by: Adam Dow 07/20/2021 6:17 AM CDT Due to temporary technical issues with the PACS/Fluency reporting system, reports are being signed by the in house radiologist without review as a courtesy to ensure prompt reporting. The interpreting r adiologist is fully responsible for the content of the report.
== END 2021-07-20 07:41 | disposition home or self-care (01) ==
LOC: ER 04:28
DX: K29.70 Gastritis, unspecified, without bleeding (principal); N39.0 Urinary tract infection, site not specified; Z88.1 Allergy status to other antibiotic agents; Z88.8 Allergy status to other drugs, medicaments and biological substances
CPT/HCPCS: 87088; 85025; 87086; 80048; 36415; 81025; 80076; 81003; 83690; 76377; 74176; 99284; J2405

== ENCOUNTER 2021-10-19 02:07 | Emergency (ER) | payer BC ==
[2021-10-19 02:45] LABS: Urine Blood Negative (Negative); Urine Glucose Negative (Negative); Urine Protein Negative (Negative); Urine Specific Gravity 1.025 (1.005-1.030)
[2021-10-19] MEDS ORDERED: MORPHINE 4 MG/ML SYR ONE (04:03)
[2021-10-19] MEDS ORDERED: ONDANSETRON 4 MG/2 ML VIAL ONE ×2 (04:04→06:02)
[2021-10-19 04:12] LABS: Absolute Lymphocytes (CBC) 1.9 K/uL (0.7-4.9); Basophils % 1.1 % (0-1.3); Hematocrit 39.2 % (36.0-45.0); Lymphocytes % 27.1 % (15.3-44.8); MPV 9.2 fL (7.6-11.3); RBC Red Blood Cell Count 4.39 M/uL (3.86-4.86)
[2021-10-19 04:25] LABS: ALT/SGPT 43 U/L (12-78); AST/SGOT 17 U/L (15-37); Albumin 3.5 g/dL (3.4-5.0); Alkaline Phosphatase 64 U/L (45-117); BUN Blood Urea Nitrogen 9 mg/dL (7-18); Bicarbonate 23 mmol/L (21-32); Bilirubin Direct < 0.1 mg/dL (0-0.2); Bilirubin Total 0.2 mg/dL (0.2-1.0); Glucose Level 98 mg/dL (74-106); Lipase 59 U/L (73-393); Potassium 3.4 mmol/L (3.5-5.1); Sodium Level 140 mmol/L (136-145)
[2021-10-19 04:47] LABS: Urine Bacteria <20 /HPF (<20); Urine RBC <5 /HPF (NONE SEEN)
[2021-10-19 05:27] LABS: Urine Specific Gravity/Preg 1.025 (1.005-1.030)
--- NOTE | 2021-10-19 06:20 | ER ---
Nurse's Notes [facility] Name: Adelaide Trinidad Age: 21 yrs Sex: Female : 2000 Arrival Date: 10/19/2021 Time: 02:12 Bed 13 Private MD: Diagnosis: Other and unspecified ovarian cysts Presentation: 10/19 02:28 Chief complaint: Patient states: Dx with pyelonephritis at [facility] on Saturday, lp1 taking Levaquin daily; Reports increased pain to LLQ of abdomen and left flank. Coronavirus screen: At this time, the client does not indicate any symptoms associated with coronavirus-19. Ebola Screen: No symptoms or risks identified at this time. Initial Sepsis Screen: Does the patient meet any 2 criteria? No. Patient's initial sepsis screen is negative. Does the patient have a suspected source of infection? No. Patient's initial sepsis screen is negative. Risk Assessment: Do you want to hurt yourself or someone else? Patient reports no desire to harm self or others. Onset of symptoms was October 19, 2021. 02:28 Method Of Arrival: Ambulatory lp1 02:28 Acuity: LUIZ 3 lp1 Triage Assessment: 04:10 General: Appears in no apparent distress. Behavior is calm, cooperative. Pain: mk Complains of pain in abdomen Pain currently is 8 out of 10 on a pain scale. Quality of pain is described as crampy, Pain began gradually, Is continuous, Alleviated by medications. 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 - Social history:: Smoking status: Patient denies any tobacco usage or history of. - Family history:: not pertinent. - Hospitalizations: : No recent hospitalization is reported. Screenin:31 Abuse screen: Denies threats or abuse. Denies injuries from another. Nutritional lp1 screening: No deficits noted. Tuberculosis screening: No symptoms or risk factors identified. Fall Risk None identified. Assessment: 02:30 General: Appears in no apparent distress. distressed, Behavior is calm, cooperative. mk Neuro: Level of Consciousness is awake, alert, obeys commands, Oriented to person, place, time, situation, Tool Operator are equal bilaterally Moves all extremities. Gait is steady, Speech is normal, Facial symmetry appears normal. Cardiovascular: Heart tones S1 S2 present Capillary refill < 3 seconds fingers toes JVD is absent Patient's skin is warm and dry. Pulses are 2+ in right radial artery, right dorsalis pedis artery, left radial artery and left dorsalis pedis artery Rhythm is regular. Respiratory: Airway is patent Respiratory effort is even, unlabored, Respiratory pattern is regular, symmetrical, Breath sounds are clear. GI: Bowel sounds Abd is soft Abdomen is tender to palpation in right lower quadrant. GI: Reports lower abdominal pain, cramping. : Urine is clear. : Urine is. Derm: Skin is intact, Skin is dry, Skin is pink, warm \\T\\ dry. Skin temperature is warm. Musculoskeletal: Range of motion: intact in all extremities. 03:30 Reassessment: No changes from previously documented assessment. Patient and/or family mk updated on plan of care and expected duration. Pain level reassessed. Patient is alert, oriented x 3, equal unlabored respirations, skin warm/dry/pink. 04:38 Reassessment: Patient and/or family updated on plan of care and expected duration. Pain mk level reassessed. Patient is alert, oriented x 3, equal unlabored respirations, skin warm/dry/pink. Patient states feeling better. 04:38 Pain: Complains of pain in abdomen Pain currently is 4 out of 10 on a pain scale. mk Quality of pain is described as aching, Is lasting more than 1 hour. Alleviated by medications, rest. 05:40 Reassessment: Patient and/or family updated on plan of care and expected duration. Pain mk level reassessed. Patient is alert, oriented x 3, equal unlabored respirations, skin warm/dry/pink. Patient states feeling better. c/o nausea now. 06:37 Reassessment: Patient and/or family updated on plan of care and expected duration. Pain mk level reassessed. Patient is alert, oriented x 3, equal unlabored respirations, skin warm/dry/pink. Patient states feeling better. 06:37 Pain: Complains of pain in abdomen Pain currently is 4 out of 10 on a pain scale. mk Quality of pain is described as aching, Is lasting more than 1 hour. Alleviated by medications, rest. Pain:. Vital Signs: 02:28 BP 134 / 86; Pulse 76; Resp 18; Temp 97.8(O); Pulse Ox 100% on R/A; Weight 86.18 kg lp1 (R); Height 4 ft. 11 in. (149.86 cm); Pain 9/10; 03:07 BP 109 / 64; Pulse 87; Resp 22; Pulse Ox 100% on R/A; mk 04:09 BP 105 / 57; Pulse 81; Resp 18; Pulse Ox 100% on R/A; mk 05:15 BP 119 / 71; Pulse 77; Resp 18; Pulse Ox 100% on R/A; mk 06:18 BP 106 / 64; Pulse 90; Resp 18; Temp 97.8(O); Pulse Ox 97% on R/A; mk 02:28 Body Mass Index 38.37 (86.18 kg, 149.86 cm) lp1 [place] Coma Score: 03:07 Eye Response: spontaneous(4). Verbal Response: oriented(5). Motor Response: obeys mk commands(6). Total: 15. 04:10 Eye Response: spontaneous(4). Verbal Response: oriented(5). Motor Response: obeys mk commands(6). Total: 15. 05:15 Eye Response: spontaneous(4). Verbal Response: oriented(5). Motor Response: obeys mk commands(6). Total: 15. 06:18 Eye Response: spontaneous(4). Verbal Response: oriented(5). Motor Response: obeys mk commands(6). Total: 15. ED Course: 02:12 Patient arrived in ED. ja2 02:20 Steven Arita MD is Attending Physician. rn 02:30 Triage completed. lp1 02:30 Arm band placed on. lp1 02:33 Kotarski, Dasha, JAZ is Primary Nurse. mk 02:50 Allergy band placed. Bed in low position. Call light in reach. Side rails up X 1. mk monitoring analyst on. Pulse ox on. NIBP on. 03:05 Inserted saline lock: 20 gauge in right forearm, using aseptic technique. mk 03:06 Lipase Sent. mk 03:06 Urine Culture Sent. mk 03:06 CBC with Automated Diff Sent. mk 03:06 Liver (Hepatic) Function Sent. mk 03:06 Basic Metabolic Panel Sent. mk 03:06 SARS-COV-2 RT PCR (Document "Date of Onset" if Symptomatic) Sent. mk 03:06 Lactate Sent. mk 03:06 Blood Culture Adult (2) Sent. mk 03:06 Urine Culture Sent. mk 03:07 Basic Metabolic Panel Sent. mk 03:07 CBC with Diff Sent. mk 03:07 Hepatic Function Sent. mk 03:07 Lipase Sent. mk 04:11 Dasha Vega RN is Primary Nurse. mk 05:15 CT Abd/Pelvis - IV Contrast Only In Process Unspecified. EDMS 06:19 No provider procedures requiring assistance completed. mk 06:38 IV discontinued, intact, bleeding controlled, No redness/swelling at site. Pressure mk dressing applied. Administered Medications: 04:09 Drug: morphine 4 mg Route: IVP; Site: right forearm; mk 04:30 Follow up: Response: No adverse reaction mk 04:09 Drug: Zofran (Ondansetron) 4 mg Route: IVP; Site: right forearm; mk 04:30 Follow up: Response: No adverse reaction mk 06:17 Drug: Zofran (Ondansetron) 2 mg Route: IVP; Site: right forearm; mk 06:46 Follow up: Response: No adverse reaction mk Outcome: 06:20 Discharge ordered by . rn 06:38 Discharged to home mk 06:38 Condition: good 06:38 Discharge instructions given to patient. 06:46 Patient left the ED. mk Signatures: Dispatcher [employer] EDMS Steven Arita MD MD rn Pena, Laura, RN RN lp1 Kevin Mejiabianca nobles2 Dasha Vega RN RN mk Corrections: (The following items were deleted from the chart) 05:17 05:15 Pulse 77bpm; Resp 18bpm; Pulse Ox 100% RA; mk mk 06:46 06:18 BP 106 / 64; Pulse 90bpm; Resp 18bpm; Pulse Ox 97% RA; [facility]
--- NOTE | 2021-10-19 06:20 | EDPHYS ---
Physician Documentation [facility] Name: Adelaide Trinidad Age: 21 yrs Sex: Female : 2000 Arrival Date: 10/19/2021 Time: 02:12 Bed 13 Private MD: ED Physician Steven Arita HPI: 10/19 02:41 This 21 yrs old Female presents to ER via Ambulatory with complaints of Abdominal pain, rn kidney infection. 02:41 The patient presents with abdominal pain right lower quadrant, in the left lower rn quadrant. Onset: The symptoms/episode began/occurred 1 week(s) ago. The symptoms do not radiate. Associated signs and symptoms: Pertinent positives: dysuria, nausea, Pertinent negatives: blood in stools, chest pain. Modifying factors: The symptoms are alleviated by nothing, the symptoms are aggravated by nothing. Severity of pain: At its worst the pain was mild in the emergency department the pain is unchanged. The patient has not experienced similar symptoms in the past. The patient has been recently seen by a physician:. Patient reports 1 week of feeling ill, seen at [facility] on Saturday, diagnosed with pyelonephritis and put on Levaquin. States compliant with antibiotics but does not feel better. Tried to go to work today but still having lower abdominal pain and dysuria.. 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 - Social history:: Smoking status: Patient denies any tobacco usage or history of. - Family history:: not pertinent. - Hospitalizations: : No recent hospitalization is reported. ROS: 02:41 Constitutional: Negative for fever, chills, and weight loss, Eyes: Negative for injury, rn pain, redness, and discharge, Cardiovascular: Negative for chest pain, palpitations, and edema, Respiratory: Negative for shortness of breath, cough, wheezing, and pleuritic chest pain, Abdomen/GI: Positive for nausea and abdominal pain Back: Negative for injury and pain, : Positive for dysuria, negative for hematuria MS/Extremity: Negative for injury and deformity, Skin: Negative for injury, rash, and discoloration, Neuro: Negative for headache, weakness, numbness, tingling, and seizure. Exam: 02:41 Constitutional: This is a well developed, well nourished patient who is awake, alert, rn and in no acute distress. Head/Face: Normocephalic, atraumatic. Eyes: Periorbital areas with no swelling, redness, or edema. Cardiovascular: Regular rate and rhythm. No pulse deficits. Respiratory: No increased work of breathing, no retractions or nasal flaring. Abdomen/GI: Soft, mild left lower quadrant and right lower quadrant tenderness Back: No spinal tenderness. No costovertebral tenderness. Full range of motion. Skin: Warm, dry MS/ Extremity: Pulses equal, no cyanosis. Neuro: Awake and alert, GCS 15 Vital Signs: 02:28 BP 134 / 86; Pulse 76; Resp 18; Temp 97.8(O); Pulse Ox 100% on R/A; Weight 86.18 kg lp1 (R); Height 4 ft. 11 in. (149.86 cm); Pain 9/10; 03:07 BP 109 / 64; Pulse 87; Resp 22; Pulse Ox 100% on R/A; mk 04:09 BP 105 / 57; Pulse 81; Resp 18; Pulse Ox 100% on R/A; mk 05:15 BP 119 / 71; Pulse 77; Resp 18; Pulse Ox 100% on R/A; mk 06:18 BP 106 / 64; Pulse 90; Resp 18; Temp 97.8(O); Pulse Ox 97% on R/A; mk 02:28 Body Mass Index 38.37 (86.18 kg, 149.86 cm) lp1 [place] Coma Score: 03:07 Eye Response: spontaneous(4). Verbal Response: oriented(5). Motor Response: obeys mk commands(6). Total: 15. 04:10 Eye Response: spontaneous(4). Verbal Response: oriented(5). Motor Response: obeys mk commands(6). Total: 15. 05:15 Eye Response: spontaneous(4). Verbal Response: oriented(5). Motor Response: obeys mk commands(6). Total: 15. 06:18 Eye Response: spontaneous(4). Verbal Response: oriented(5). Motor Response: obeys mk commands(6). Total: 15. MDM: 02:20 Patient medically screened. rn 06:17 Differential diagnosis: appendicitis, diverticulitis, Endometriosis, non-specific abd rn pain, Ureterolithiasis, urinary tract infection, ovarian cyst, pyelonephritis, UTI. Data reviewed: vital signs, nurses notes, lab test result(s), radiologic studies, CT scan, and as a result, I will discharge patient. Counseling: I had a detailed discussion with the patient and/or guardian regarding: the historical points, exam findings, and any diagnostic results supporting the discharge/admit diagnosis, lab results, radiology results, the need for outpatient follow up, to return to the emergency department if symptoms worsen or persist or if there are any questions or concerns that arise at home. Response to treatment: the patient's symptoms have markedly improved after treatment, and as a result, I will discharge patient. Special discussion: Based on the patient's Hx, exam, and Dx evaluation, there is no indication for emergent surgery or inpatient Tx. It is understood by the patient/guardian that if the Sx's persist or worsen they need to return immediately for re-evaluation. I discussed with the patient/guardian in detail that at this point there is no indication for admission to the hospital. It is understood, however, that if the symptoms persist or worsen the patient needs to return immediately for re-evaluation. 06:17 ED course: Ct without acute findings, likely recent improving ovarian cyst. UA neg for rn UTI. CT without pyelo. Will dc home with pcp f/u. . 10/19 02: Order name: Basic Metabolic Panel rn 10/19 02: Order name: CBC with Diff rn 10/19 02: Order name: Hepatic Function rn 10/19 02: Order name: Lipase rn 10/19 02: Order name: Urine Culture rn 12/23 02:29 Order name: Urine Microscopic Only; Complete Time: 05:47 10/19 02:29 Order name: Blood Culture Adult (2) rn 10/19 02:29 Order name: Lactate; Complete Time: 04:31 10/19 02:29 Order name: SARS-COV-2 RT PCR (Document "Date of Onset" if Symptomatic); Complete Time: rn 04:10 10/19 02:30 Order name: Basic Metabolic Panel; Complete Time: 04:31 [facility] 10/19 02:30 Order name: CBC with Automated Diff; Complete Time: 04:31 [facility] 10/19 02:30 Order name: Liver (Hepatic) Function; Complete Time: 04:31 [facility] 10/19 02:30 Order name: Lipase; Complete Time: 04:31 [facility] 10/19 02:30 Order name: Urine Culture [facility] 10/19 02:29 Order name: IV Saline Lock; Complete Time: 03:07 10/19 02:29 Order name: Labs collected and sent; Complete Time: 03:07 10/19 02:29 Order name: CT Abd/Pelvis - IV Contrast Only 10/19 02:29 Order name: Urine Dipstick-Ancillary (obtain specimen); Complete Time: 02:56 10/19 02:30 Order name: Urine Test (obtain specimen); Complete Time: 02:57 10/19 02:44 Order name: Urine Dipstick-Ancillary; Complete Time: 03:17 [facility] 10/19 02:57 Order name: Urine --Ancillary (enter results); Complete Time: 05:47 ds4 Administered Medications: 04:09 Drug: morphine 4 mg Route: IVP; Site: right forearm; mk 04:30 Follow up: Response: No adverse reaction mk 04:09 Drug: Zofran (Ondansetron) 4 mg Route: IVP; Site: right forearm; mk 04:30 Follow up: Response: No adverse reaction mk 06:17 Drug: Zofran (Ondansetron) 2 mg Route: IVP; Site: right forearm; mk 06:46 Follow up: Response: No adverse reaction mk Disposition Summary: 10/19/21 06:20 Discharge Ordered Location: Home rn Problem: new rn Symptoms: have improved rn Condition: Stable rn Diagnosis - Other and unspecified ovarian cysts rn Followup: rn - With: Private Physician - When: As needed - Reason: Recheck today's complaints, Re-evaluation by your physician Discharge Instructions: - Discharge Summary Sheet rn - Ovarian Cyst rn Forms: - Medication Reconciliation Form rn - Thank You Letter rn - Antibiotic rn gastroenterology - Prescription Opioid Use rn Signatures: Dispatcher [employer] EDSteven Zhou MD MD rn Pena, Laura RN RN lp1 Eric Thompson, COMBATANT DIVER OFFICER-C COMBATANT DIVER OFFICER-[facility] Dasha Vega RN RN
[2021-10-19 07:04] VITALS: TEMP 97.8
[2021-10-19 07:10] VITALS: BP 106/64; O2SAT 97
--- NOTE | 2021-10-19 12:13 | RAD REPORT ---
EXAM DESCRIPTION: CT - Abdomen Pelvis W Contrast - 10/19/2021 6:51 am CLINICAL HISTORY: Eval for pyelonephritis;Abd pain TECHNIQUE: Axial computed tomography images of the abdomen and pelvis with intravenous contrast. S agittal and coronal reformatted images were created and reviewed. This CT exam was performed using one or more of the following dose reduction techniques: automated exposure control, adjustment of t he mA and/or kV according to patient size, and/or use of iterative reconstruction technique. COMPARISON: CT ABDOMEN PELVIS dated 07/20/2021 FINDINGS: Limitations: None. Lung bases: No abnormality noted. Pleural space: No abnormality noted. Heart: No abnormality noted. Mediastinum: No abnormality noted. ABDOMEN: Liver: No abnormality noted. Gallbladder and bile ducts: No calcified stones or surrounding fluid. Pancreas: Homogeneous enhancement. No mass, inflammation or ductal dilation. Spleen: No abnormality noted. Adrenals: Visualized portions appear normal. Kidneys and ureters: Stable mild renal lobulation. Homogeneous enhancement. No stone or hydr onephrosis. No perinephric fluid. Stomach and bowel: No distension or mucosal thickening. No inflammation noted. PELVIS: Appendix: Appendectomy. Bladder: No filling defects to suggest mass or large stone. No inflammation. Reproductive: Probable collapsed/collapsing cyst in the right ovary measuring about 1.5 cm. Appr oximately 2.6 x 1.9 cm left ovarian cyst. No further evaluation needed. ABDOMEN and PELVIS: Intraperitoneal space: Trace amounts of fluid in the inferior right paracolic gutter and along the round ligament. No significant fluid collection. No free air. Bones/joints: No acute change noted. Soft tissues: No abnormality noted. Vasculature: No abdominal aortic aneurysm. Lymph nodes: Stable mildly prominent nonspecific mesenteric lymph nodes. IMPRESSION: 1. No CT evidence of pyelonephritis. 2. Probable collapsed/collapsing cyst in the right ovary and small amount of fluid right lower quad rant. Electronically signed by: Xiomara Prado MD 10/19/2021 6:05 AM TRACTOR TRAILER OPERATOR Due to temporary technical issues with the PACS/Fluency reporting system, reports are being signed by the in house radiologist without review as a courtesy to ensure prompt reporting. The interpreting r adiologist is fully responsible for the content of the report.
== END 2021-10-19 06:46 | disposition home or self-care (01) ==
LOC: ER 02:07
DX: N83.299 Other ovarian cyst, unspecified side (principal); F32.A Depression, unspecified; Z88.1 Allergy status to other antibiotic agents; Z88.8 Allergy status to other drugs, medicaments and biological substances; Z20.822 Contact with and (suspected) exposure to COVID-19
CPT/HCPCS: 87040 ×2; 87088; 85025; 87086; 80048; 36415; 81025; 80076; 83605; 83690; 74177; 96375; 96374; 99284; U0003; Q9967; J2405 ×2; 81003; 81015

== ENCOUNTER 2021-11-26 18:28 | Emergency (ER) | payer BC ==
[2021-11-26 19:54] LABS: SARS-COV-2 RT PCR POSITIVE (NEGATIVE)
[2021-11-26] MEDS ORDERED: ALBUTEROL INHALER 60 PUFF/8 GM IH ONE (20:22)
--- NOTE | 2021-11-26 20:23 | RAD REPORT ---
EXAM DESCRIPTION: RAD - Chest Single View - 11/26/2021 7:21 pm CLINICAL HISTORY: Cough;Congestion COMPARISON: April 2021 Two view chest TECHNIQUE: AP portable chest image was obtained 11/26/2021 7:21 pm . FINDINGS: Lungs are clear. Heart and vasculature are normal. No measurable pleural effusion and no p neumothorax. No acute bony abnormality seen. No acute aortic findings suspected. IMPRESSION: No acute cardiopulmonary process. No significant change from comparison study.
[2021-11-26] MEDS ORDERED: NA CHLORIDE 0.9% 1,000 ML ONE (20:49)
[2021-11-26] MEDS ORDERED: ONDANSETRON 4 MG/2 ML VIAL ONE (20:49)
[2021-11-26] MEDS ORDERED: FAMOTIDINE 20 MG/2 ML VIAL IV ONE (20:49)
[2021-11-26 21:14] LABS: Absolute Lymphocytes (CBC) 1.2 K/uL (0.7-4.9); Hematocrit 42.5 % (36.0-45.0); Lymphocytes % 34.6 % (15.3-44.8); MPV 9.7 fL (7.6-11.3); RBC Red Blood Cell Count 4.84 M/uL (3.86-4.86)
[2021-11-26 22:33] LABS: ALT/SGPT 26 U/L (12-78); Albumin 3.5 g/dL (3.4-5.0); Alkaline Phosphatase 61 U/L (45-117); BUN Blood Urea Nitrogen 5 mg/dL (7-18); Bicarbonate 21 mmol/L (21-32); Bilirubin Direct < 0.1 mg/dL (0-0.2); Bilirubin Total 0.3 mg/dL (0.2-1.0); Glucose Level 83 mg/dL (74-106); Lipase 51 U/L (73-393); NT PRO-BNP 9 pg/mL (<125); Protein, Total 6.9 g/dL (6.4-8.2); Sodium Level 140 mmol/L (136-145)
[2021-11-26 22:34] LABS: AST/SGOT 18 U/L (15-37); Magnesium 2.3 mg/dL (1.8-2.4); Potassium 3.5 mmol/L (3.5-5.1)
[2021-11-26 22:38] LABS: Protime INR 1.01
[2021-11-26 23:14] LABS: Urine Blood Negative (Negative); Urine Glucose Negative (Negative); Urine Protein Negative (Negative); Urine pH 6.5 (5.0-7.0)
--- NOTE | 2021-11-27 00:53 | ER ---
Nurse's Notes [facility] Name: Adelaide Trinidad Age: 21 yrs Sex: Female : 2000 Arrival Date: 11/26/2021 Time: 18:33 Bed 11 Private MD: Corby Burnett B Diagnosis: Pneumonia due to SARS-associated coronavirus;UTI/ Urinary tract infection, site not specified Presentation: 11/26 18:42 Chief complaint: Patient states: difficulty breathing, cough, congestion, body aches x vg1 4 days; states NVD began yesterday. Coronavirus screen: Vaccine status: Patient reports being unvaccinated. Client denies travel out of the [place] in the last 14 days. Client presents with at least one sign or symptom that may indicate coronavirus-19. Standard/surgical mask placed on the client. Ebola Screen: Patient negative for fever greater than or equal to 101.5 degrees Fahrenheit, and additional compatible Ebola Virus Disease symptoms. Initial Sepsis Screen: Does the patient meet any 2 criteria? RR > 20 per min. Yes Does the patient have a suspected source of infection? No. Patient's initial sepsis screen is negative. Risk Assessment: Do you want to hurt yourself or someone else? Patient reports no desire to harm self or others. Onset of symptoms was November 22, 2021. 18:42 Method Of Arrival: Ambulatory vg1 18:42 Acuity: LUIZ 4 vg1 Triage Assessment: 18:45 General: Appears uncomfortable, Behavior is calm, cooperative. Pain: Complains of pain vg1 in generalized body Pain currently is 9 out of 10 on a pain scale. Respiratory: Reports cough that is productive, pain with respiration Breath sounds with wheezes Onset: The symptoms/episode began/occurred 4 days ago, the patient has moderate shortness of breath. 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 - Social history:: Smoking status: Patient denies any tobacco usage or history of. Screenin:48 Abuse screen: Denies threats or abuse. Denies injuries from another. Nutritional sm5 screening: No deficits noted. Tuberculosis screening: No symptoms or risk factors identified. Fall Risk None identified. Assessment: 19:52 General: Appears in no apparent distress. Behavior is cooperative. Pain: Denies pain. sm5 Neuro: Level of Consciousness is awake, alert, Oriented to person, place, time, situation. Cardiovascular: No deficits noted. Capillary refill < 3 seconds Patient's skin is warm and dry. Rhythm is sinus rhythm. Respiratory: Reports shortness of breath Airway is patent Trachea midline Respiratory effort is even, labored. GI: Abdomen is obese, Reports nausea. 21:17 Reassessment: No changes from previously documented assessment. sm5 22:25 Reassessment: No changes from previously documented assessment. sm5 23:31 Reassessment: No changes from previously documented assessment. Patient and/or family 5 updated on plan of care and expected duration. Pain level reassessed. 11/27 00:28 Reassessment: No changes from previously documented assessment. 5 Vital Signs: 11/26 18:42 BP 138 / 94; Pulse 99; Resp 24; Temp 97.6; Pulse Ox 100% on R/A; Weight 86.18 kg; vg1 Height 4 ft. 11 in. (149.86 cm); Pain 9/10; 22:05 BP 131 / 89; Pulse 87; Resp 22; Pulse Ox 100% on R/A; sm5 23:18 BP 129 / 91; Pulse 89; Resp 24; Pulse Ox 99% on R/A; sm5 11/27 01:12 BP 132 / 95; Pulse 91; Resp 22; Pulse Ox 100% on R/A; sm5 11/26 18:42 Body Mass Index 38.37 (86.18 kg, 149.86 cm) 1 ED Course: 11/26 18:33 Patient arrived in ED. mr 18:33 Corby Burnett MD is Private Physician. mr 18:45 Triage completed. vg1 18:45 Arm band placed on. vg1 18:48 COVID swab sent to lab. Flu and/or RSV swab sent to lab. vg1 19:21 Chest Single View XRAY In Process Unspecified. EDMS 19:39 Guillermina James, RN is Primary Nurse. sm5 19:43 Geovanny Jean MD is Attending Physician. mh7 20:48 Basic Metabolic Panel Sent. sm5 20:48 Lipase Sent. sm5 20:48 Basic Metabolic Panel Sent. sm5 20:48 CBC with Diff Sent. sm5 20:48 LFT's Sent. sm5 20:48 Magnesium Sent. sm5 20:48 NT PRO-BNP Sent. sm5 20:48 PT-INR Sent. sm5 20:48 Troponin HS Sent. sm5 20:49 Inserted saline lock: 20 gauge in right forearm, using aseptic technique. Blood sm5 collected. 22:52 Notified ED physician of a critical lab result(s). D-dimer 550 Dr Jean notified. bb 23:49 CT Chest For PE Angio In Process Unspecified. EDMS 11/27 00:52 Jeremie Armas MD is Referral Physician. 7 01:37 Patient has correct armband on for positive identification. Bed in low position. Call sm5 light in reach. Side rails up X2. 01:37 No provider procedures requiring assistance completed. IV discontinued, intact, sm5 bleeding controlled, No redness/swelling at site. Pressure dressing applied. Administered Medications: 11/26 20:21 Drug: Albuterol HFA Inhaler 2 puffs Route: Inhalation; sm5 20:53 Drug: Pepcid (famotidine) 20 mg Route: IVP; Site: right forearm; sm5 20:54 Drug: NS 0.9% 1000 ml Route: IV; Rate: 1000 ml; Site: right forearm; sm5 20:54 Drug: Zofran (Ondansetron) 4 mg Route: IVP; Site: right forearm; sm5 Outcome: 11/27 00:53 Discharge ordered by . mh7 01:37 Discharged to home ambulatory. sm5 01:37 Condition: stable 01:37 Discharge instructions given to patient, Instructed on discharge instructions, follow up and referral plans. medication usage, Demonstrated understanding of instructions, follow-up care, medications, Prescriptions given X 3. 01:38 Patient left the ED. [facility] Signatures: Dispatcher [employer] ED Juli Sifuentes mr FisherardAria, RN RN Ashley De La Vega RN RN vg1 Geovanny Jean MD MD 7 Guillermina James RN RN 5 Corrections: (The following items were deleted from the chart) 11/26 20:57 20:48 D-DIMER+COAG.LAB.BRZ drawn and sent. [address]
--- NOTE | 2021-11-27 00:54 | EDPHYS ---
Physician Documentation [facility] Name: Adelaide Trinidad Age: 21 yrs Sex: Female : 2000 Arrival Date: 11/26/2021 Time: 18:33 Bed 11 Private MD: Corby Burnett B ED Physician Geovanny Jean HPI: 11/26 20:11 This 21 yrs old Female presents to ER via Ambulatory with complaints of Breathing mh7 Difficulty. 20:11 The patient has shortness of breath at rest, with light activity. Onset: The mh7 symptoms/episode began/occurred 4 day(s) ago. Duration: The symptoms are intermittent, with no pattern. The patient's shortness of breath is aggravated by coughing, light activity. Associated signs and symptoms: Pertinent positives: chest pain, productive cough, nausea, vomiting, Diarrhea, wheezing, Pertinent negatives: non-productive cough, diaphoresis, dizziness, fever, hemoptysis, loss of consciousness, numbness in extremities, visual changes. Severity of symptoms: At their worst the symptoms were moderate 2 day(s) ago, in the emergency department the symptoms are unchanged. 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 - Social history:: Smoking status: Patient denies any tobacco usage or history of. ROS: 20:11 Constitutional: Negative for fever, chills, and weight loss, Eyes: Negative for injury, mh7 pain, redness, and discharge, ENT: Negative for injury, pain, and discharge, Neck: Negative for injury, pain, and swelling. 20:11 Back: Negative for injury and pain, : Negative for injury, bleeding, discharge, and swelling, MS/Extremity: Negative for injury and deformity, Skin: Negative for injury, rash, and discoloration, Neuro: Negative for headache, weakness, numbness, tingling, and seizure, Psych: Negative for depression, anxiety, suicide ideation, homicidal ideation, and hallucinations, Allergy/Immunology: Negative for hives, rash, and allergies, Endocrine: Negative for neck swelling, polydipsia, polyuria, polyphagia, and marked weight changes, Hematologic/Lymphatic: Negative for swollen nodes, abnormal bleeding, and unusual bruising. 20:11 Abdomen/GI: Negative for abdominal pain, constipation, abdominal cramps, abdominal distension, anorexia, dysphagia, hematemesis, black/tarry stool, rectal pain, rectal bleeding, bowel incontinence, flatulence. Exam: 20:11 Constitutional: This is a well developed, well nourished patient who is awake, alert, mh7 and in no acute distress. Head/Face: Normocephalic, atraumatic. Eyes: Pupils equal round and reactive to light, extra-ocular motions intact. Lids and lashes normal. Conjunctiva and sclera are non-icteric and not injected. Cornea within normal limits. Periorbital areas with no swelling, redness, or edema. Neck: Trachea midline, no thyromegaly or masses palpated, and no cervical lymphadenopathy. Supple, full range of motion without nuchal rigidity, or vertebral point tenderness. No Meningismus. Chest/axilla: Normal chest wall appearance and motion. Nontender with no deformity. No lesions are appreciated. Cardiovascular: Regular rate and rhythm with a normal S1 and S2. No gallops, murmurs, or rubs. Normal PMI, no JVD. No pulse deficits. Respiratory: Lungs have equal breath sounds bilaterally, clear to auscultation and percussion. No rales, rhonchi or wheezes noted. No increased work of breathing, no retractions or nasal flaring. Abdomen/GI: Soft, non-tender, with normal bowel sounds. No distension or tympany. No guarding or rebound. No evidence of tenderness throughout. Back: No spinal tenderness. No costovertebral tenderness. Full range of motion. Skin: Warm, dry with normal turgor. Normal color with no rashes, no lesions, and no evidence of cellulitis. MS/ Extremity: Pulses equal, no cyanosis. Neurovascular intact. Full, normal range of motion. Neuro: Awake and alert, GCS 15, oriented to person, place, time, and situation. Cranial nerves II-XII grossly intact. Motor strength 5/5 in all extremities. Sensory grossly intact. Cerebellar exam normal. Normal gait. Psych: Awake, alert, with orientation to person, place and time. Behavior, mood, and affect are within normal limits. Vital Signs: 18:42 BP 138 / 94; Pulse 99; Resp 24; Temp 97.6; Pulse Ox 100% on R/A; Weight 86.18 kg; vg1 Height 4 ft. 11 in. (149.86 cm); Pain 9/10; 22:05 BP 131 / 89; Pulse 87; Resp 22; Pulse Ox 100% on R/A; sm5 23:18 BP 129 / 91; Pulse 89; Resp 24; Pulse Ox 99% on R/A; sm5 11/27 01:12 BP 132 / 95; Pulse 91; Resp 22; Pulse Ox 100% on R/A; sm5 11/26 18:42 Body Mass Index 38.37 (86.18 kg, 149.86 cm) vg1 MDM: 00:49 Differential diagnosis: Anemia Anxiety Reaction asthma, Bronchitis pneumonia, mh7 Psychogenic pulmonary edema, Pulmonary Embolism reactive airway disease. Data reviewed: vital signs, nurses notes, lab test result(s), cardiac enzymes, CBC, electrolytes, urinalysis, UPT: negative EKG, radiologic studies, CT scan, plain films. Data interpreted: Pulse oximetry: on room air is 100 %. Interpretation: normal. Counseling: I had a detailed discussion with the patient and/or guardian regarding: the historical points, exam findings, and any diagnostic results supporting the discharge/admit diagnosis, the presence of at least one elevated blood pressure reading (>120/80) during this emergency department visit, lab results, radiology results, the need for outpatient follow up. 00:51 Response to treatment: the patient's symptoms have resolved after treatment, the mh7 patient's blood pressure is in an acceptable range, mental status has returned to baseline, the patient no longer shows bradycardia, the patient is not short of breath, the patient is not tachycardic, the patient's pain is gone, the patient's temperature has normalized, the patient is now symptom free, patient is well hydrated. 00:53 Patient medically screened. [facility] 11/26 18:48 Order name: COVID-19/FLU A+B (Document "Date of Onset" if Symptomatic) [facility] 11/26 18:49 Order name: COVID-19/FLU A+B; Complete Time: 20:00 [facility] 11/26 20:01 Order name: Basic Metabolic Panel [facility] 11/26 20:01 Order name: CBC with Diff; Complete Time: 21:16 [facility] 11/26 20:01 Order name: LFT's; Complete Time: 22:44 [facility] 11/26 20:01 Order name: Magnesium; Complete Time: 22:44 [facility] 11/26 20:01 Order name: NT PRO-BNP; Complete Time: 22:44 [facility] 11/26 20:01 Order name: PT-INR; Complete Time: 23:00 [facility] 11/26 20:01 Order name: Troponin HS; Complete Time: 22:44 [facility] 11/26 20:01 Order name: Lipase; Complete Time: 22:44 [facility] 11/26 20:01 Order name: Basic Metabolic Panel; Complete Time: 22:44 [facility] 11/26 20:58 Order name: D-Dimer; Complete Time: 23:00 [facility] 11/26 23:14 Order name: Urine Dipstick-Ancillary; Complete Time: 00:49 [facility] 11/26 18:48 Order name: Chest Single View XRAY; Complete Time: 20:49 [facility] 11/26 20:01 Order name: EKG; Complete Time: 20:02 [facility] 11/26 20:01 Order name: Cardiac monitoring; Complete Time: 20:21 [facility] 11/26 20:01 Order name: EKG - Nurse/Tech; Complete Time: 20:21 [facility] 11/26 20:01 Order name: IV Saline Lock; Complete Time: 20:48 [facility] 11/26 20:01 Order name: Labs collected and sent; Complete Time: 20:48 [facility] 11/26 20:01 Order name: O2 Per Protocol; Complete Time: 20:21 [facility] 11/26 20:01 Order name: O2 Sat Monitoring; Complete Time: 20:21 [facility] 11/26 22:45 Order name: Urine Dipstick-Ancillary (obtain specimen); Complete Time: 23:54 [facility] 11/26 22:45 Order name: Urine Test (obtain specimen); Complete Time: 23:54 [facility] 11/26 23:01 Order name: CT Chest For PE Angio [facility] 11/26 23:16 Order name: Urine --Ancillary (enter results); Complete Time: 00:49 bb Administered Medications: 11/26 20:21 Drug: Albuterol HFA Inhaler 2 puffs Route: Inhalation; sm5 20:53 Drug: Pepcid (famotidine) 20 mg Route: IVP; Site: right forearm; sm5 20:54 Drug: NS 0.9% 1000 ml Route: IV; Rate: 1000 ml; Site: right forearm; sm5 20:54 Drug: Zofran (Ondansetron) 4 mg Route: IVP; Site: right forearm; sm5 Disposition Summary: 11/27/21 00:53 Discharge Ordered Location: Home [facility] Problem: new [facility] Symptoms: have improved [facility] Condition: Stable [facility] Diagnosis - Pneumonia due to SARS-associated coronavirus [facility] - UTI/ Urinary tract infection, site not specified [facility] Followup: [facility] - With: Private Physician - When: 1 - 2 days - Reason: Worsening of condition, Recheck today's complaints, Continuance of care, Re-evaluation by your physician Followup: [facility] - With: Jeremie Armas MD - When: 2 - 3 days - Reason: Worsening of condition, Recheck today's complaints Discharge Instructions: - Discharge Summary Sheet [facility] - Urinary Tract Infection, Adult, [id number] - COVID-19 [facility] - COVID-19 Frequently Asked Questions [facility] - 10 Things You Can Do to Manage Your COVID-19 Symptoms at Home - [place] [id number] - COVID-19: Quarantine vs. Isolation - [place] [id number] Forms: - Medication Reconciliation Form [facility] - Thank You Letter [facility] - Antibiotic Education [facility] - Prescription Opioid Use [facility] Prescriptions: - ipratropium-albuterol 0.5 mg-3 mg(2.5 mg base)/3 mL Inhalation solution for nebulization - inhale 3 milliliter by NEBULIZATION route 4 times per day As needed; 20 [facility] milliliter; Refills: 0, Product Selection Permitted - Tessalon Perles 100 mg Oral Capsule - take 1 capsule by ORAL route every 8 hours As needed; 15 capsule; Refills: 0, mh7 Product Selection Permitted - levofloxacin 500 mg Oral Tablet - take 1 tablet by ORAL route once daily for 7 days; 7 tablet; Refills: 0, 7 Product Selection Permitted Signatures: Dispatcher [employer] Ashley Shelton RN RN vg1 Geovanny Jean MD MD mh7 Guillermina James RN RN sm5 Corrections: (The following items were deleted from the chart) 20:57 20:03 D-DIMER+COAG.LAB.BRZ ordered. EDMS EDMS
[2021-11-27 01:42] VITALS: TEMP 97.6
[2021-11-27 01:46] VITALS: BP 132/95; O2SAT 100
--- NOTE | 2021-11-27 12:21 | RAD REPORT ---
EXAM DESCRIPTION: Chest For Pe Angio CLINICAL HISTORY: 21 years Female SOB COMPARISON: December 16, 2019 TECHNIQUE: Images were obtained in axial, sagittal, and coronal planes. 3-D MIP imaging was performe d. This exam was performed according to our departmental dose-optimization program which includes use of Automated Exposure Control, adjustment of the mA and/or kV according to patient size and/or use of iterative reconstruction technique. FINDINGS: No filling defects pulmonary arteries bilaterally. No aortic dissection or dilatation. No pericardial or pleural effusions bilaterally. No adenopathy. Ill-defined airspace attenuation lung topete bilaterally. Peripheral distribution noted. No pneumotho rax. Suspected enlarged thyroid gland. No acute osseous abnormality. Decreased attenuation involving the liver likely fatty change. IMPRESSION: No evidence for pulmonary embolus. No aortic dissection or dilatation. Ill-defined bilat eral infiltrates. The findings are consistent with but not specific for atypical pneumonia including viral infection. Electronically signed by: Brenda Mendoza MD 11/27/2021 12:14 AM GROCERY WORKER Due to temporary technical issues with the PACS/Fluency reporting system, reports are being signed by the in house radiologists without review as a courtesy to insure prompt reporting. The interpreting radiologist is fully responsible for the content of the report.
== END 2021-11-27 01:38 | disposition home or self-care (01) ==
LOC: ER 18:28
DX: U07.1 COVID-19 (principal); N39.0 Urinary tract infection, site not specified; J45.909 Unspecified asthma, uncomplicated; E03.9 Hypothyroidism, unspecified; E16.2 Hypoglycemia, unspecified; M41.9 Scoliosis, unspecified; F41.9 Anxiety disorder, unspecified; F32.A Depression, unspecified; Z88.3 Allergy status to other anti-infective agents; Z88.1 Allergy status to other antibiotic agents
CPT/HCPCS: 93005; 85025; 80048; 36415; 83735; 81025; 85610; 85379; 80076; 81003; 84484; 83690; 83880; 0240U; 71275; 71045; 96375; 96374; 99285; Q9967; J7030; J2405

== ENCOUNTER 2022-01-31 00:29 | Emergency (ER) | payer BC ==
[2022-01-31] MEDS ORDERED: NA CHLORIDE 0.9% 1,000 ML ONE (01:21)
[2022-01-31] MEDS ORDERED: ONDANSETRON 4 MG/2 ML VIAL ONE (01:21)
[2022-01-31] MEDS ORDERED: MORPHINE 4 MG/ML SYR ONE (01:21)
[2022-01-31 01:34] LABS: Absolute Lymphocytes (CBC) 1.7 K/uL (0.7-4.9); Hematocrit 38.9 % (36.0-45.0); Lymphocytes % 26.6 % (15.3-44.8); RBC Red Blood Cell Count 4.37 M/uL (3.86-4.86)
[2022-01-31 01:35] LABS: Urine Blood Negative (Negative); Urine Glucose Negative (Negative); Urine Protein Negative (Negative); Urine Specific Gravity 1.015 (1.005-1.030)
[2022-01-31 01:39] LABS: Albumin 3.6 g/dL (3.4-5.0); Bilirubin Total 0.2 mg/dL (0.2-1.0); Potassium 3.6 mmol/L (3.5-5.1); Protein, Total 6.8 g/dL (6.4-8.2)
[2022-01-31 01:46] LABS: Urine Specific Gravity/Preg 1.015 (1.005-1.030)
[2022-01-31 02:05] LABS: Urine Bacteria 20-50 /HPF (<20)
[2022-01-31 02:06] LABS: Urine RBC <5 /HPF (NONE SEEN); Urine Yeast FEW (NONE SEEN)
[2022-01-31] MEDS ORDERED: levoFLOXacin 250 MG TAB ONE (02:32)
[2022-01-31] MEDS ORDERED: CEFTRIAXONE 1000 MG/VIAL ONE (02:32)
--- NOTE | 2022-01-31 03:41 | EDPHYS ---
Physician Documentation [facility] Name: Adelaide Trinidad Age: 22 yrs Sex: Female : 2000 Arrival Date: 01/31/2022 Time: 00:32 Bed 24 Private MD: MYLES Physician Juan A Louie HPI: 01/31 00:48 This 22 yrs old Female presents to ER via Unassigned with complaints of antionette Abdominal Pain, Nausea. 00:48 The patient presents to the emergency department with nausea, vomiting, that is antionette intermittent. Onset: The symptoms/episode began/occurred 3 day(s) ago. Possible causes: unknown. The symptoms are aggravated by nothing. The symptoms are alleviated by nothing. Associated signs and symptoms: Pertinent positives: abdominal pain, nausea, vomiting. Severity of symptoms: At their worst the symptoms were moderate in the emergency department the symptoms have improved. The patient has not experienced similar symptoms in the past. Historical: - Allergies: 00:51 Bactrim; jb4 00:51 Doxycycline; jb4 00:51 Zithromax; jb4 00:51 Zosyn; jb4 - Home Meds: 00:51 Zyrtec 10 mg Oral tab once daily [Active]; Prozac 10 mg Oral cap 1 cap once daily jb4 [Active]; Singulair 10 mg Oral tab 1 tab once daily [Active]; Wellbutrin 150 mg Oral 150 mg daily [Active]; - PMHx: 00:51 Asthma; Anxiety; Depression; HYPOGLYCEMIA; Hypothyroidism; scoliosis; jb4 - PSHx: 00:51 Appendectomy; right hip repair; jb4 - Immunization history:: Adult Immunizations up to date. - Social history:: Smoking status: unknown. - Family history:: not pertinent. ROS: 00:48 Constitutional: Negative for fever, chills, and weight loss, Eyes: Negative for injury, antionette pain, redness, and discharge, ENT: Negative for injury, pain, and discharge, Neck: Negative for injury, pain, and swelling, Cardiovascular: Negative for chest pain, palpitations, and edema, Respiratory: Negative for shortness of breath, cough, wheezing, and pleuritic chest pain, Back: Negative for injury and pain, : Negative for injury, bleeding, discharge, and swelling, MS/Extremity: Negative for injury and deformity, Skin: Negative for injury, rash, and discoloration, Neuro: Negative for headache, weakness, numbness, tingling, and seizure, Psych: Negative for depression, anxiety, suicide ideation, homicidal ideation, and hallucinations, Allergy/Immunology: Negative for hives, rash, and allergies, Endocrine: Negative for neck swelling, polydipsia, polyuria, polyphagia, and marked weight changes, Hematologic/Lymphatic: Negative for swollen nodes, abnormal bleeding, and unusual bruising. 00:48 Abdomen/GI: Positive for abdominal pain, nausea and vomiting, of the posterior aspect of left lateral abdomen, anterior aspect of left lateral abdomen, left upper quadrant and left lower quadrant. Exam: 00:48 Constitutional: This is a well developed, well nourished patient who is awake, alert, antionette and in no acute distress. Head/Face: Normocephalic, atraumatic. Eyes: Pupils equal round and reactive to light, extra-ocular motions intact. Lids and lashes normal. Conjunctiva and sclera are non-icteric and not injected. Cornea within normal limits. Periorbital areas with no swelling, redness, or edema. ENT: Nares patent. No nasal discharge, no septal abnormalities noted. Tympanic membranes are normal and external auditory canals are clear. Oropharynx with no redness, swelling, or masses, exudates, or evidence of obstruction, uvula midline. Mucous membranes moist. Neck: Trachea midline, no thyromegaly or masses palpated, and no cervical lymphadenopathy. Supple, full range of motion without nuchal rigidity, or vertebral point tenderness. No Meningismus. Chest/axilla: Normal chest wall appearance and motion. Nontender with no deformity. No lesions are appreciated. Cardiovascular: Regular rate and rhythm with a normal S1 and S2. No gallops, murmurs, or rubs. Normal PMI, no JVD. No pulse deficits. Respiratory: Lungs have equal breath sounds bilaterally, clear to auscultation and percussion. No rales, rhonchi or wheezes noted. No increased work of breathing, no retractions or nasal flaring. Abdomen/GI: Soft, non-tender, with normal bowel sounds. No distension or tympany. No guarding or rebound. No evidence of tenderness throughout. Back: No spinal tenderness. No costovertebral tenderness. Full range of motion. Skin: Warm, dry with normal turgor. Normal color with no rashes, no lesions, and no evidence of cellulitis. MS/ Extremity: Pulses equal, no cyanosis. Neurovascular intact. Full, normal range of motion. Neuro: Awake and alert, GCS 15, oriented to person, place, time, and situation. Cranial nerves II-XII grossly intact. Motor strength 5/5 in all extremities. Sensory grossly intact. Cerebellar exam normal. Normal gait. Psych: Awake, alert, with orientation to person, place and time. Behavior, mood, and affect are within normal limits. Vital Signs: 00:50 BP 122 / 79; Pulse 91; Resp 18; Temp 97.8; Pulse Ox 98% on R/A; Weight 86.18 kg (R); jb4 Height 4 ft. 11 in. (149.86 cm); Pain 10/10; 02:45 BP 109 / 71; Pulse 66; Resp 16; Pulse Ox 98% on R/A; jb4 00:50 Body Mass Index 38.37 (86.18 kg, 149.86 cm) jb4 MDM: 00:41 Patient medically screened. antionette 00:53 Differential diagnosis: Nonspecific abd pain, gastritis, pancreatitis, diverticulitis, antionetet viral gastroenteritis, gastroenteritis. Data reviewed: vital signs, nurses notes, lab test result(s), radiologic studies, CT scan. Data interpreted: air sampling and monitoring: rate is 91 beats/min, rhythm is regular, Pulse oximetry: on room air is 98 %. Test interpretation: by ED physician or midlevel provider:. Counseling: I had a detailed discussion with the patient and/or guardian regarding: the historical points, exam findings, and any diagnostic results supporting the discharge/admit diagnosis, lab results, radiology results, the need for outpatient follow up, for definitive care, a family practitioner. 01/31 00:48 Order name: CBC with Diff; Complete Time: 01:48 antionette 01/31 00:48 Order name: CMP; Complete Time: 01:48 antionette 01/31 00:48 Order name: Lipase; Complete Time: 01:48 antionette 01/31 01:35 Order name: Urine Dipstick-Ancillary; Complete Time: 01:48 EDMS 01/31 01:42 Order name: Urine --Ancillary (enter results); Complete Time: 01:48 ds4 01/31 01:42 Order name: Urine Microscopic Only; Complete Time: 03:40 ds4 01/31 00:48 Order name: CT Abd/Pelvis - IV Contrast Only [facility] 01/31 00:48 Order name: IV Saline Lock; Complete Time: 01:14 antionette 01/31 01:49 Order name: Urine Culture [facility] 01/31 00:48 Order name: Labs collected and sent; Complete Time: 01:14 antionette 01/31 00:48 Order name: Urine Dipstick-Ancillary (obtain specimen); Complete Time: antionette 01/31 00:48 Order name: Urine Test (obtain specimen); Complete Time: : [facility] Administered Medications: 01:26 Drug: NS 0.9% 1000 ml Route: IV; Rate: 1 bolus; Site: right antecubital; jb4 01:26 Drug: Zofran (Ondansetron) 4 mg Route: IVP; Site: right antecubital; jb4 02:05 Follow up: Response: No adverse reaction; Marked relief of symptoms jb4 01:26 Drug: morphine 4 mg Route: IVP; Site: right antecubital; jb4 02:04 Follow up: Response: No adverse reaction; Marked relief of symptoms; Pain is decreased jb4 02:37 Drug: Rocephin (cefTRIAXone) 1 grams Route: IV; Rate: per protocol; Site: right jb4 antecubital; 02:50 Follow up: Response: No adverse reaction; IV Status: Completed infusion jb4 02:37 Drug: LevOfloxacin 500 mg Route: PO; jb4 04:02 Follow up: Response: No adverse reaction jb4 Disposition Summary: 01/31/22 03:40 Discharge Ordered Location: Home antionette Problem: new antionette Symptoms: have improved antionette Condition: Stable antionette Diagnosis - Abdominal tenderness - left, flank antionette - UTI/ Urinary tract infection, site not specified antionette Followup: antionette - With: Private Physician - When: 2 - 3 days - Reason: Recheck today's complaints, Continuance of care, Re-evaluation by your physician Discharge Instructions: - Discharge Summary Sheet antionette - Abdominal Pain, Adult antionette - Abdominal Pain, Adult, [id number] antionette - Urinary Tract Infection, Adult antionette - Urinary Tract Infection, Adult, [id number] antionette Forms: - Medication Reconciliation Form antionette - Thank You Letter antionette - Antibiotic Education antionette - Prescription Opioid Use [facility] Prescriptions: - Pepcid 20 mg Oral Tablet - take 1 tablet by ORAL route every 12 hours for 10 days; 20 tablet; Refills: 0, [facility] Product Selection Permitted - Zofran 4 mg Oral Tablet - take 1 tablet by ORAL route every 12 hours As needed; 20 tablet; Refills: 0, [facility] Product Selection Permitted - dicyclomine 20 mg Oral Tablet - take 1 tablet by ORAL route 4 times per day; 28 tablet; Refills: 0, Product [facility] Selection Permitted - levofloxacin 500 mg Oral Tablet - take 1 tablet by ORAL route once daily for 7 days; 7 tablet; Refills: 0, [facility] Product Selection Permitted Signatures: Dispatcher [employer] Juan A Encarnacion MD MD cha Bryson, James, RN RN jb4
--- NOTE | 2022-01-31 03:41 | ER ---
Nurse's Notes [facility] Name: Adelaide Trinidad Age: 22 yrs Sex: Female : 2000 Arrival Date: 01/31/2022 Time: 00:32 Bed 24 Private MD: Diagnosis: Abdominal tenderness-left, flank;UTI/ Urinary tract infection, site not specified Presentation: 01/31 00:50 Chief complaint: Patient states: I have been having left mid abdominal pain that jb4 radiates to my mid back. I have had kidney stones in the past and it feels similar. I have a lack of appetite and feel nauseous. Coronavirus screen: Client denies travel out of the [place] in the last 14 days. At this time, the client does not indicate any symptoms associated with coronavirus-19. Ebola Screen: No symptoms or risks identified at this time. Initial Sepsis Screen: Does the patient meet any 2 criteria? HR > 90 bpm. Does the patient have a suspected source of infection? Yes: Acute abdominal pain. Risk Assessment: Do you want to hurt yourself or someone else? Patient reports no desire to harm self or others. Onset of symptoms was January 31, 2022. Transition of care: patient was not received from another setting of care. 00:50 Method Of Arrival: Ambulatory jb4 00:50 Acuity: LUIZ 3 jb4 Historical: - Allergies: 00:51 Bactrim; jb4 00:51 Doxycycline; jb4 00:51 Zithromax; jb4 00:51 Zosyn; jb4 - Home Meds: 00:51 Zyrtec 10 mg Oral tab once daily [Active]; Prozac 10 mg Oral cap 1 cap once daily jb4 [Active]; Singulair 10 mg Oral tab 1 tab once daily [Active]; Wellbutrin 150 mg Oral 150 mg daily [Active]; - PMHx: 00:51 Asthma; Anxiety; Depression; HYPOGLYCEMIA; Hypothyroidism; scoliosis; jb4 - PSHx: 00:51 Appendectomy; right hip repair; jb4 - Immunization history:: Adult Immunizations up to date. - Social history:: Smoking status: unknown. - Family history:: not pertinent. Screenin:27 Abuse screen: Denies threats or abuse. Nutritional screening: No deficits noted. jb4 Tuberculosis screening: No symptoms or risk factors identified. Fall Risk None identified. Assessment: 01:27 General: Appears in no apparent distress. uncomfortable, Behavior is calm, cooperative. jb4 Pain: Complains of pain in Left mid abdomen and left mid back Pain does not radiate. Pain currently is 10 out of 10 on a pain scale. Neuro: Level of Consciousness is awake, alert, obeys commands, Oriented to person, place, time, situation. Cardiovascular: Patient's skin is warm and dry. Respiratory: Airway is patent Respiratory effort is even, unlabored, Respiratory pattern is regular, symmetrical. GI: Abdomen is non-distended, obese, Reports nausea, vomiting. : No signs and/or symptoms were reported regarding the genitourinary system. EENT: No signs and/or symptoms were reported regarding the EENT system. Derm: Skin is intact, Skin is pink, warm \T\ dry. Musculoskeletal: Circulation, motion, and sensation intact. Range of motion: intact in all extremities. 02:30 Reassessment: Patient appears in no apparent distress at this time. Patient and/or jb4 family updated on plan of care and expected duration. Pain level reassessed. Patient is alert, oriented x 3, equal unlabored respirations, skin warm/dry/pink. Vital Signs: 00:50 BP 122 / 79; Pulse 91; Resp 18; Temp 97.8; Pulse Ox 98% on R/A; Weight 86.18 kg (R); jb4 Height 4 ft. 11 in. (149.86 cm); Pain 10/10; 02:45 BP 109 / 71; Pulse 66; Resp 16; Pulse Ox 98% on R/A; jb4 00:50 Body Mass Index 38.37 (86.18 kg, 149.86 cm) jb4 ED Course: 00:32 Patient arrived in ED. ja2 00:41 Juan A Louie MD is Attending Physician. antionette 00:48 Lauri Okeefe, RN is Primary Nurse. jb4 00:51 Triage completed. jb4 00:51 Arm band placed on right wrist. jb4 01:27 Patient has correct armband on for positive identification. Placed in gown. Bed in low jb4 position. Call light in reach. Side rails up X 1. Pulse ox on. NIBP on. 01:27 Initial lab(s) drawn, by ED staff, sent to lab. Urine collected: clean catch specimen. jb4 Inserted saline lock: 24 gauge in right antecubital area, using aseptic technique. Blood collected. Performed by MYLES Gómez. 02:10 CT Abd/Pelvis - IV Contrast Only In Process Unspecified. EDMS 04:01 No provider procedures requiring assistance completed. IV discontinued, intact, jb4 bleeding controlled, No redness/swelling at site. Pressure dressing applied. Administered Medications: 01:26 Drug: NS 0.9% 1000 ml Route: IV; Rate: 1 bolus; Site: right antecubital; jb4 01:26 Drug: Zofran (Ondansetron) 4 mg Route: IVP; Site: right antecubital; jb4 02:05 Follow up: Response: No adverse reaction; Marked relief of symptoms jb4 01:26 Drug: morphine 4 mg Route: IVP; Site: right antecubital; jb4 02:04 Follow up: Response: No adverse reaction; Marked relief of symptoms; Pain is decreased jb4 02:37 Drug: Rocephin (cefTRIAXone) 1 grams Route: IV; Rate: per protocol; Site: right jb4 antecubital; 02:50 Follow up: Response: No adverse reaction; IV Status: Completed infusion jb4 02:37 Drug: LevOfloxacin 500 mg Route: PO; jb4 04:02 Follow up: Response: No adverse reaction jb4 Outcome: 03:40 Discharge ordered by . antionette 04:01 Discharged to home ambulatory. jb4 04:01 Condition: stable 04:01 Discharge instructions given to patient, Instructed on discharge instructions, follow up and referral plans. medication usage, Demonstrated understanding of instructions, follow-up care, medications, Prescriptions given X 4. 04:02 Patient left the ED. jb4 Signatures: Dispatcher [employer] EDLA Juan A Louie MD MD cha Bryson, James, RN RN jb4 Baylee Mejia
--- NOTE | 2022-01-31 12:15 | RAD REPORT ---
EXAM DESCRIPTION: CT - Abdomen Pelvis W Contrast - 01/31/2022 6:55 am COMPARISON: CT abdomen pelvis October 19, 2021 CLINICAL HISTORY: Abdominal pain TECHNIQUE: Multiple helical axial images were obtained through the abdomen and pelvis using intraven ous contrast. Coronal and sagittal reformatted images were obtained. All CT scans at this facility use dose modulation, iterative reconstruction, and/or weight-based dosi ng when appropriate to reduce radiation dose to as low as reasonably achievable. FINDINGS: Lung bases: Appear unremarkable. Liver: There is low-attenuation suggesting fatty changes. Gallbladder/biliary: Appears unremarkable Pancreas: Unremarkable. No evidence of ductal enlargement. Spleen: Appears unremarkable. No splenomegaly. Adrenals: Unremarkable. Kidneys and ureters: No evidence of hydronephrosis. Normal enhancement. Bladder: Unremarkable. Pelvic organs: Unremarkable. Bowel: No evidence of bowel obstruction. No bowel wall thickening. Appendix is surgically absent. Vasculature: Unremarkable. Peritoneum: No free air. No significant free fluid. Lymph nodes: Unremarkable. Soft tissues: There is a small fat-containing umbilical hernia. Bones: There is mild levocurvature of the thoracolumbar junction. IMPRESSION: 1. No evidence for an acute process within the abdomen or pelvis. 2. Hepatic steatosis. Electronically signed by: Vitaly Comer MD 01/31/2022 2:43 AM CDT Due to temporary technical issues with the PACS/Fluency reporting system, reports are being signed by the in house radiologist without review as a courtesy to ensure prompt reporting. The interpreting r adiologist is fully responsible for the content of the report.
[2022-01-31 18:42] VITALS: TEMP 97.8; O2SAT 98
[2022-01-31 18:44] VITALS: BP 109/71
== END 2022-01-31 04:02 | disposition home or self-care (01) ==
LOC: ER 00:29
DX: N39.0 Urinary tract infection, site not specified (principal); R11.2 Nausea with vomiting, unspecified; E03.9 Hypothyroidism, unspecified; J45.909 Unspecified asthma, uncomplicated; F41.8 Other specified anxiety disorders; Z88.1 Allergy status to other antibiotic agents; Z88.8 Allergy status to other drugs, medicaments and biological substances
CPT/HCPCS: 87088; 85025; 87086; 36415; 81025; 83690; 80053; 74177; Q9967; J7030; J2405; 81003; 81015

== ENCOUNTER 2022-02-12 14:52 | Emergency (ER) | payer BC ==
[2022-02-12] MEDS ORDERED: ALBUTEROL 2.5 MG/3 ML NEB SOL ONE ×2 (15:41→17:30)
[2022-02-12] MEDS ORDERED: IPRATROPIUM BROM 0.5MG/2.5ML ONE (15:42)
[2022-02-12] MEDS ORDERED: predniSONE 20 MG TAB ONE (15:42)
--- NOTE | 2022-02-12 16:37 | RAD REPORT ---
EXAM DESCRIPTION: RAD - Chest Single View - 02/12/2022 4:19 pm CLINICAL HISTORY: SOB Chest pain. COMPARISON: Chest Single View dated 12/04/2021; Chest Single View dated 11/26/2021; Chest Pa And Lat (2 Views) dated 05/12/2021; Chest Single View dated 07/01/2020 FINDINGS: Portable technique limits examination quality. The lungs are grossly clear. The heart is normal in size. No displaced fractures. IMPRESSION: No acute intrathoracic process suspected.
[2022-02-12] MEDS ORDERED: NA CHLORIDE 0.9% IV STA (17:42)
[2022-02-12] MEDS ORDERED: KETAMINE HCL IV STA (17:42)
--- NOTE | 2022-02-12 19:31 | EDPHYS ---
Physician Documentation [facility] Name: Adelaide Trinidad Age: 22 yrs Sex: Female : 2000 Arrival Date: 02/12/2022 Time: 14:53 Bed 15 Private MD: ED Physician Ramiro Ignacio HPI: 02/12 15:37 This 22 yrs old Female presents to ER via Ambulatory with complaints of Breathing ms3 Difficulty, Chest Pain. 15:37 The patient has shortness of breath at rest. Onset: The symptoms/episode began/occurred ms3 acutely, 3 day(s) ago. Duration: The symptoms are intermittent. The patient's shortness of breath has no apparent modifying factors. Associated signs and symptoms: Pertinent positives: chest pain, nausea, Pertinent negatives: fever, vomiting. Severity of symptoms: At their worst the symptoms were moderate in the emergency department the symptoms are unchanged. . Historical: - Allergies: 15:14 Bactrim; ph 15:14 Doxycycline; ph 15:14 Zithromax; ph 15:14 Zosyn; ph - Home Meds: 15:14 Prozac 10 mg Oral cap 1 cap once daily [Active]; Singulair 10 mg Oral tab 1 tab once ph daily [Active]; Wellbutrin 150 mg Oral 150 mg daily [Active]; Zyrtec 10 mg Oral tab once daily [Active]; - PMHx: 15:14 Anxiety; Asthma; Depression; HYPOGLYCEMIA; scoliosis; Hypothyroidism; ph - PSHx: 15:14 Appendectomy; right hip repair; ph - Immunization history:: Adult Immunizations unknown. - Social history:: Smoking status: Patient denies any tobacco usage or history of. ROS: 15:37 Constitutional: Negative for fever, and chills. Neck: Negative for injury, pain, and ms3 swelling, Abdomen/GI: Negative for abdominal pain, nausea, vomiting, diarrhea, and constipation, MS/Extremity: Negative for injury and deformity, Skin: Negative for injury, rash, and discoloration, Neuro: Negative for headache, weakness, numbness, tingling. 15:37 Cardiovascular: Positive for chest pain. 15:37 Respiratory: Positive for shortness of breath, at rest. 15:37 All other systems are negative. Exam: 15:22 ECG was reviewed by the Attending Physician. ms3 15:37 Constitutional: This is a well developed, well nourished patient who is awake, alert, ms3 and in no acute distress. Head/Face: Normocephalic, atraumatic. Neck: Trachea midline, no cervical lymphadenopathy. Supple, full range of motion without nuchal rigidity, or vertebral point tenderness. No Meningismus. Chest/axilla: Normal chest wall appearance and motion. Nontender with no deformity. Cardiovascular: Regular rate and rhythm with a normal S1 and S2. No gallops, murmurs, or rubs. Normal PMI, no JVD. No pulse deficits. Abdomen/GI: Soft, non-tender, with normal bowel sounds. No distension or tympany. No guarding or rebound. No evidence of tenderness throughout. Neuro: Awake and alert, GCS 15, oriented to person, place, time, and situation. Cranial nerves II-XII grossly intact. Motor strength 5/5 in all extremities. Sensory grossly intact. Cerebellar exam normal. Normal gait. Psych: Awake, alert, with orientation to person, place and time. Behavior, mood, and affect are within normal limits. 15:37 Respiratory: mild respiratory distress is noted, Respirations: Breath sounds: wheezing: expiratory is heard in the left posterior upper lobe, right posterior upper lobe, left posterior lower lobe, right posterior middle lobe and right posterior lower lobe, Respiratory rate: 20 Vital Signs: 15:12 BP 148 / 89; Pulse 91; Resp 28; Temp 97.7; Pulse Ox 93% on R/A; Weight 86.18 kg; Height ph 4 ft. 11 in. (149.86 cm); 15:20 BP 127 / 81; Pulse 82; Resp 20; Pulse Ox 95% on R/A; jg9 16:45 BP 114 / 62; Pulse 106; Resp 25; Pulse Ox 100% on R/A; jg9 17:45 BP 132 / 76; Pulse 100; Resp 20 S; Pulse Ox 96% on R/A; jg9 18:00 BP 103 / 58; Pulse 94; Resp 20 S; Pulse Ox 99% on R/A; jg9 19:15 BP 117 / 64; Pulse 112; Resp 20; Pulse Ox 99% on R/A; ll3 15:12 Body Mass Index 38.37 (86.18 kg, 149.86 cm) ph MDM: 15:30 Patient medically screened. ms3 15:37 Differential diagnosis: asthma, pneumonia, Pneumothorax. ms3 02/13 06:10 Data reviewed: vital signs, nurses notes, radiologic studies, plain films. Counseling: ms3 I had a detailed discussion with the patient and/or guardian regarding: the historical points, exam findings, and any diagnostic results supporting the discharge/admit diagnosis, radiology results, the need for outpatient follow up, to return to the emergency department if symptoms worsen or persist or if there are any questions or concerns that arise at home. ED course: Discussed CXR and PE with patient. Patient to follow up with Pulmonology as discussed. Patient understood/ agreed with plan. All questions were answered. Return precautions given to include worsening symptoms, or any other concerns. Patient was a/o x4, nad, non-toxic, ambulatory in ED, speaking full sentences.. 02/12 15:16 Order name: CXR XRAY; Complete Time: 16:50 ms3 02/12 15:16 Order name: EKG - Nurse/Tech; Complete Time: 15:25 ms3 EC/18 15:22 Rate is 74 beats/min. Rhythm is regular. QRS [place] is Normal. Right axis deviation ms3 noted. Clinical impression: NSR w/ Non-specific ST/T Changes. Interpreted by me. Administered Medications: 15:42 Drug: Albuterol - atroVENT (ipratropium) (3:1) (2.5 mg - 0.5 mg) 3 ml Route: Nebulizer; jg9 16:48 Follow up: Response: No adverse reaction; Wheezing diminished jg9 15:42 Drug: predniSONE 60 mg Route: PO; jg9 16:48 Follow up: Response: No adverse reaction; Wheezing diminished jg9 17:26 Drug: Albuterol 2.5 mg Route: Inhalation; jg9 17:58 Drug: Albuterol 2.5 mg Route: Inhalation; jg9 18:39 Drug: Ketamine 10 mg Route: IVP; Site: right forearm; jg9 19:09 Follow up: Response: No adverse reaction jg9 Disposition Summary: 02/12/22 19:30 Discharge Ordered Location: Home ms3 Condition: Stable ms3 Diagnosis - Shortness of breath ms3 - Moderate persistent asthma with (acute) exacerbation ms3 - Chest pain, unspecified ms3 Followup: ms3 - With: Jeremie Armas MD - When: 2 - 3 days - Reason: Recheck today's complaints Discharge Instructions: - Discharge Summary Sheet ms3 - Asthma, Adult ms3 Forms: - Medication Reconciliation Form ms3 - Thank You Letter ms3 - Antibiotic Education ms3 - Prescription Opioid Use ms3 Prescriptions: - albuterol sulfate 1.25 mg/3 mL Inhalation solution for nebulization - inhale 6 milliliter by INHALATION route every 4-6 hours; 1 Pump; Refills: 0, ms3 Product Selection Permitted - Prednisone 20 mg Oral Tablet - take 2 tablets by ORAL route once daily for 5 days; 10 tablet; Refills: 0, ms3 Product Selection Permitted Signatures: Dispatcher [employer] EDLainey Alonso RN RN Ramiro Pfeiffer DO DO ms3 [place] Millard RN RN jg9
--- NOTE | 2022-02-12 19:31 | ER ---
Nurse's Notes [facility] Name: Adelaide Trinidad Age: 22 yrs Sex: Female : 2000 Arrival Date: 02/12/2022 Time: 14:53 Bed 15 Private MD: Diagnosis: Shortness of breath;Moderate persistent asthma with (acute) exacerbation;Chest pain, unspecified Presentation: 02/12 15:12 Chief complaint: Patient states: SOB x 3 days, also c/o mid-sternal chest pain that ph radiates to L arm, pt tachypneic in triage w/ Spo2 93% RA, denies fever. Coronavirus screen: Vaccine status: Patient reports being unvaccinated. Ebola Screen: No symptoms or risks identified at this time. Initial Sepsis Screen: Does the patient meet any 2 criteria? No. Patient's initial sepsis screen is negative. Does the patient have a suspected source of infection? No. Patient's initial sepsis screen is negative. Risk Assessment: Do you want to hurt yourself or someone else? Patient reports no desire to harm self or others. Onset of symptoms was February 12, 2022. 15:12 Method Of Arrival: Ambulatory ph 15:12 Acuity: LUIZ 3 ph Triage Assessment: 15:43 General: Appears uncomfortable, Behavior is calm, cooperative. Respiratory: Reports jg9 shortness of breath Hx of asthma been trying home medication to relieve wheezing but meds have not been working Onset: The symptoms/episode began/occurred few days, the patient has moderate shortness of breath. Historical: - Allergies: 15:14 Bactrim; ph 15:14 Doxycycline; ph 15:14 Zithromax; ph 15:14 Zosyn; ph - Home Meds: 15:14 Prozac 10 mg Oral cap 1 cap once daily [Active]; Singulair 10 mg Oral tab 1 tab once ph daily [Active]; Wellbutrin 150 mg Oral 150 mg daily [Active]; Zyrtec 10 mg Oral tab once daily [Active]; - PMHx: 15:14 Anxiety; Asthma; Depression; HYPOGLYCEMIA; scoliosis; Hypothyroidism; ph - PSHx: 15:14 Appendectomy; right hip repair; ph - Immunization history:: Adult Immunizations unknown. - Social history:: Smoking status: Patient denies any tobacco usage or history of. Screenin:25 Abuse screen: Denies threats or abuse. Denies injuries from another. Nutritional jg9 screening: No deficits noted. Tuberculosis screening: No symptoms or risk factors identified. Fall Risk None identified. Assessment: 15:42 Pain: Complains of pain in chest. Cardiovascular: Rhythm is regular. Respiratory: jg9 Airway is patent Respiratory effort is labored, Breath sounds with wheezes bilaterally. 16:48 Reassessment: Patient states feeling better. Patient reports that she is able to breath jg9 a little better after the medications she was given, however she is not breathing as well as she would like. . 17:32 Pain: Complains of pain in chest. jg9 17:33 Reassessment: provider aware of continued c/o chest pain. jg9 19:42 Reassessment: Patient states symptoms have improved. ll3 Vital Signs: 15:12 BP 148 / 89; Pulse 91; Resp 28; Temp 97.7; Pulse Ox 93% on R/A; Weight 86.18 kg; Height ph 4 ft. 11 in. (149.86 cm); 15:20 BP 127 / 81; Pulse 82; Resp 20; Pulse Ox 95% on R/A; jg9 16:45 BP 114 / 62; Pulse 106; Resp 25; Pulse Ox 100% on R/A; jg9 17:45 BP 132 / 76; Pulse 100; Resp 20 S; Pulse Ox 96% on R/A; jg9 18:00 BP 103 / 58; Pulse 94; Resp 20 S; Pulse Ox 99% on R/A; jg9 19:15 BP 117 / 64; Pulse 112; Resp 20; Pulse Ox 99% on R/A; ll3 15:12 Body Mass Index 38.37 (86.18 kg, 149.86 cm) ph ED Course: 14:53 Patient arrived in ED. ds1 15:07 Juan A Sánchez PA is PHCP. cp 15:07 Ramiro Ignacio DO is Attending Physician. cp 15:14 Triage completed. ph 15:14 Arm band placed on Patient placed in an exam room. ph 15:24 France Millard, JAZ is Primary Nurse. jg9 15:25 Bed in low position. Call light in reach. Side rails up X 1. Door closed. Noise mb7 minimized. 15:25 EKG done, by ED staff, reviewed by Ramiro Ignacio DO. mb7 16:21 CXR XRAY In Process Unspecified. EDMS 17:32 Patient requests pain medication. jg9 17:33 Pt visited by significant other. jg9 19:29 Jeremie Armas MD is Referral Physician. ms3 19:41 No provider procedures requiring assistance completed. IV discontinued, intact, ll3 bleeding controlled, No redness/swelling at site. Pressure dressing applied. Administered Medications: 15:42 Drug: Albuterol - atroVENT (ipratropium) (3:1) (2.5 mg - 0.5 mg) 3 ml Route: Nebulizer; jg9 16:48 Follow up: Response: No adverse reaction; Wheezing diminished jg9 15:42 Drug: predniSONE 60 mg Route: PO; jg9 16:48 Follow up: Response: No adverse reaction; Wheezing diminished jg9 17:26 Drug: Albuterol 2.5 mg Route: Inhalation; jg9 17:58 Drug: Albuterol 2.5 mg Route: Inhalation; jg9 18:39 Drug: Ketamine 10 mg Route: IVP; Site: right forearm; jg9 19:09 Follow up: Response: No adverse reaction jg9 Outcome: 19:30 Discharge ordered by MD. ms3 19:41 Discharged to home ambulatory, with significant other. ll3 19:41 Condition: stable 19:41 Discharge instructions given to patient, family, Instructed on discharge instructions, follow up and referral plans. medication usage, Demonstrated understanding of instructions, follow-up care, medications, Prescriptions given X 2. 19:42 Patient left the ED. ll3 Signatures: Dispatcher [employer] EDCT Magy Ness ds1 Lainey Guzmán RN RN Juan A Chao PA PA Ramiro Cox DO DO ms3 Juliana Hager, RN RN ll3 Juli Maza mb7 France Millard RN RN jg9 Corrections: (The following items were deleted from the chart) 15:25 15:25 Allergy band placed. mb7 mb7
[2022-02-13 01:56] VITALS: TEMP 97.7
[2022-02-13 02:02] VITALS: O2SAT 99
[2022-02-13 02:04] VITALS: BP 117/64
--- NOTE | 2022-02-13 08:59 | EKG ---
Test Date: 2022-02-12 Test Time: 15:22:07 Director Of Field Sales: ERIKA MEASUREMENT RESULTS: Intervals: Rate: 74 GA: 118 QRSD: 74 QT: 368 QTc: 408 [place]: P: 56 GA: 118 QRS: 92 T: 5 INTERPRETIVE STATEMENTS: Normal sinus rhythm Rightward axis Nonspecific T wave abnormality Abnormal ECG Compared to ECG 11/26/2021 20:15:44 Right-axis deviation now present Possible ischemia no longer present T-wave abnormality still present Electronically Signed On 02-13-22 08:58:15 CDT by Elijah Yanez
== END 2022-02-12 19:42 | disposition home or self-care (01) ==
LOC: ER 14:52
DX: J45.41 Moderate persistent asthma with (acute) exacerbation (principal); R07.9 Chest pain, unspecified; E03.9 Hypothyroidism, unspecified; F41.9 Anxiety disorder, unspecified; F32.A Depression, unspecified; Z88.1 Allergy status to other antibiotic agents; Z88.8 Allergy status to other drugs, medicaments and biological substances
CPT/HCPCS: 93005; 71045; 94640; 96374; 99284; J7512

== ENCOUNTER 2022-03-14 16:17 | Emergency (ER) | payer BC ==
--- NOTE | 2022-03-14 17:55 | RAD REPORT ---
EXAM DESCRIPTION: US - Transvaginal Study Probe - 03/14/2022 5:42 pm CLINICAL HISTORY: pelvic pain Pelvic pain. COMPARISON: Transvaginal Study Probe dated 08/15/2020 FINDINGS: The uterus is normal in size, shape and echotexture. The uterus measures 7.5 cm The endometrial stripe measures 2 mm, normal. The right ovary measures 2.8 x 2.6 x 2.1 cm with volume of 8.1 cc. Left ovary not visualized. No adne xal masses. Vascular flow is present within the right ovary. No significant pelvic ascites. IMPRESSION: Unremarkable right ovary with vascular flow. Left ovary not visualized.
[2022-03-14] MEDS ORDERED: KETOROLAC 30 MG/ML INJ ONE (18:23)
[2022-03-14 18:35] LABS: Urine Blood Negative (Negative); Urine Glucose Negative (Negative); Urine Protein Negative (Negative); Urine Specific Gravity >=1.030 (1.005-1.030); Urine pH 6.5 (5.0-7.0)
[2022-03-14 18:38] LABS: Absolute Lymphocytes (CBC) 1.2 K/uL (0.7-4.9); Hematocrit 40.6 % (36.0-45.0); Lymphocytes % 21.8 % (15.3-44.8); MPV 8.9 fL (7.6-11.3); RBC Red Blood Cell Count 4.56 M/uL (3.86-4.86)
[2022-03-14 18:54] LABS: Albumin 3.9 g/dL (3.4-5.0); Bilirubin Total 0.4 mg/dL (0.2-1.0); Potassium 3.6 mmol/L (3.5-5.1); Protein, Total 7.1 g/dL (6.4-8.2)
[2022-03-14 19:15] LABS: Urine Bacteria <20 /HPF (<20); Urine RBC <5 /HPF (NONE SEEN)
[2022-03-14] MEDS ORDERED: MORPHINE 4 MG/ML SYR ONE (19:53)
[2022-03-14] MEDS ORDERED: CEFTRIAXONE 1000 MG/VIAL ONE (19:53)
[2022-03-14] MEDS ORDERED: DOXYCYCLINE 100 MG CAP PO ONE (19:54)
[2022-03-14] MEDS ORDERED: NA CHLORIDE 0.9% 50 ML ONE (19:54)
[2022-03-14] MEDS ORDERED: ONDANSETRON 4 MG/2 ML VIAL ONE (20:02)
--- NOTE | 2022-03-14 20:33 | ER ---
Nurse's Notes [facility] Name: Adelaide Trinidad Age: 22 yrs Sex: Female : 2000 Arrival Date: 03/14/2022 Time: 16:18 Bed 11 Private MD: Corby Burnett B Diagnosis: Female pelvic inflammatory disease, unspecified Presentation: 03/14 16:35 Chief complaint: Patient states: she has been having pelvic pain and excessive vaginal ap3 discharge. Patient states the vaginal discharge is a lot more than normal and has a foul odor. Coronavirus screen: At this time, the client does not indicate any symptoms associated with coronavirus-19. Ebola Screen: No symptoms or risks identified at this time. Initial Sepsis Screen: Does the patient meet any 2 criteria? No. Patient's initial sepsis screen is negative. Does the patient have a suspected source of infection? No. Patient's initial sepsis screen is negative. Risk Assessment: Do you want to hurt yourself or someone else? Patient reports no desire to harm self or others. Onset of symptoms was March 09, 2022. 16:35 Method Of Arrival: Ambulatory ap3 16:35 Acuity: LUIZ 3 ap3 Triage Assessment: 16:37 General: Appears in no apparent distress. Behavior is calm, cooperative. Pain: ap3 Complains of pain in pelvis Pain currently is 8 out of 10 on a pain scale. Neuro: Level of Consciousness is awake, alert, obeys commands, Oriented to person, place, time, situation, Gait is steady, Speech is normal. Cardiovascular: Patient's skin is warm and dry. Respiratory: Airway is patent Respiratory effort is even, unlabored. 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 Flu vaccine is not up to date. - Social history:: Smoking status: Patient denies any tobacco usage or history of. Screenin:38 Abuse screen: Denies threats or abuse. Nutritional screening: No deficits noted. ap3 Tuberculosis screening: No symptoms or risk factors identified. Fall Risk None identified. Assessment: 19:00 Reassessment: Patient appears in no apparent distress at this time. Patient and/or jb4 family updated on plan of care and expected duration. Pain level reassessed. Patient is alert, oriented x 3, equal unlabored respirations, skin warm/dry/pink. 19:00 Reassessment: Patient appears in no apparent distress at this time. Patient and/or jb4 family updated on plan of care and expected duration. Pain level reassessed. Patient is alert, oriented x 3, equal unlabored respirations, skin warm/dry/pink. Patient states feeling better. Vital Signs: 16:35 BP 124 / 70; Pulse 81; Temp 98.3; Pulse Ox 100% ; Weight 86.18 kg; Height 4 ft. 11 in. ap3 (149.86 cm); Pain 8/10; 16:35 Body Mass Index 38.37 (86.18 kg, 149.86 cm) ap3 ED Course: 16:18 Patient arrived in ED. am2 16:18 Corby Burnett MD is Private Physician. am2 16:19 [facility] cp 16:19 Ramiro Ignacio DO is Attending Physician. cp 16:37 Triage completed. ap3 16:38 Arm band placed on right wrist. ap3 17:44 Transvaginal Study Probe In Process Unspecified. EDMS 18:15 Lauri Okeefe, JAZ is Primary Nurse. jb4 18:43 Patient has correct armband on for positive identification. Bed in low position. Call mh5 light in reach. Side rails up X 1. Adult w/ patient. Warm blanket given. Pulse ox on. NIBP on. 18:43 Initial lab(s) drawn, by me, sent to lab. Urine collected: clean catch specimen, 5 cloudy. Inserted saline lock: 22 gauge in right upper arm, using aseptic technique. 19:00 No provider procedures requiring assistance completed. IV discontinued, intact, jb4 bleeding controlled, No redness/swelling at site. Pressure dressing applied. 20:32 Anisa Holliday MD is Referral Physician. cp Administered Medications: 18:42 Drug: Ketorolac 15 mg Route: IVP; Site: right upper arm; jb4 19:15 Follow up: Response: No adverse reaction jb4 20:04 Drug: morphine 4 mg Route: IVP; Site: right upper arm; vc1 20:04 Drug: Doxycycline 100 mg Route: PO; vc1 20:05 Drug: Rocephin - (cefTRIAXone) 1 grams Route: IVPB; Infused Over: 30 mins; Site: right vc1 upper arm; 20:05 Drug: Zofran (Ondansetron) 4 mg Route: IVP; Site: right upper arm; vc1 Medication: 16:38 VIS not applicable for this client. ap3 Outcome: 20:33 Discharge ordered by MD. cp 21:16 Discharged to home ambulatory, with family. jb4 21:16 Condition: stable 21:16 Discharge instructions given to patient, Instructed on discharge instructions, follow up and referral plans. medication usage, Demonstrated understanding of instructions, follow-up care, medications, Prescriptions given X 4. 21:16 Patient left the ED. jb4 Signatures: Dispatcher [employer] EDMS Juan A Sánchez PA PA cp Bryson, James, RN RN jb4 Yasmin Mariscal Aletha Tee am2 Aletha Kidd RN RN ap3 Ally Coulter RN RN vc1
--- NOTE | 2022-03-14 20:33 | EDPHYS ---
Physician Documentation [facility] Name: Adelaide Trinidad Age: 22 yrs Sex: Female : 2000 Arrival Date: 03/14/2022 Time: 16:18 Bed 11 Private MD: Corby Burnett B ED Physician Ramiro Ignacio HPI: 03/14 16:50 This 22 yrs old Female presents to ER via Ambulatory with complaints of Pelvic Pain. cp 16:50 The patient presents with pelvic pain, vaginal discharge, that is malodorous white cp discharge. 16:50 Onset: The symptoms/episode began/occurred 5 day(s) ago. Modifying factors: the cp symptoms are aggravated by sexual intercourse. Associated signs and symptoms: Pertinent negatives: diarrhea, dysuria, fever, vaginal bleeding, vomiting. Severity of symptoms: in the emergency department the symptoms are unchanged, despite home interventions. 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 Flu vaccine is not up to date. - Social history:: Smoking status: Patient denies any tobacco usage or history of. ROS: 16:55 Constitutional: Negative for body aches, chills, fever, poor PO intake. cp 16:55 Cardiovascular: Negative for chest pain, palpitations. cp 16:55 Respiratory: Negative for cough, shortness of breath, wheezing. 16:55 Abdomen/GI: Negative for vomiting, diarrhea, constipation. 16:55 : Positive for pelvic pain, vaginal discharge, Negative for urinary symptoms, vaginal bleeding. 16:55 Neuro: Negative for altered mental status, headache, weakness. cp 16:55 All other systems are negative. cp Exam: 17:00 Constitutional: The patient appears in no acute distress, alert, awake, non-toxic, well cp developed, well nourished. 17:00 Head/Face: Normocephalic, atraumatic. cp 17:00 Eyes: Periorbital structures: appear normal, Conjunctiva: normal, no exudate, no injection, Sclera: no appreciated abnormality, Lids and lashes: appear normal, bilaterally. 17:00 ENT: External ear(s): are unremarkable, Nose: is normal, Mouth: Lips: moist, Oral mucosa: moist, Posterior pharynx: Airway: no evidence of obstruction, patent. 17:00 Chest/axilla: Inspection: normal. 17:00 Cardiovascular: Rate: normal, Rhythm: regular. 17:00 Respiratory: the patient does not display signs of respiratory distress, Respirations: normal, no use of accessory muscles, no retractions, labored breathing, is not present, Breath sounds: are clear throughout, no decreased breath sounds, no stridor, no wheezing. 17:00 Abdomen/GI: Inspection: abdomen appears normal, Bowel sounds: active, all quadrants, Palpation: soft, in all quadrants, mild abdominal tenderness, in the right lower quadrant and left lower quadrant, rebound tenderness, is not appreciated, involuntary guarding, is not appreciated. 17:00 Back: CVA tenderness, is absent. 19:22 : CVA tenderness, is absent, Pelvic Exam: External exam: is normal, Speculum exam: no cp bleeding is noted, os that is closed, bimanual exam reveals cervical motion tenderness, uterine tenderness, right adnexal tenderness, left adnexal tenderness, no adnexal mass on right, no adnexal mass on left, discharge, white, the nurse was present for the exam, Sexual behavior: the patient is sexually active, and reports a single partner. Vital Signs: 16:35 BP 124 / 70; Pulse 81; Temp 98.3; Pulse Ox 100% ; Weight 86.18 kg; Height 4 ft. 11 in. ap3 (149.86 cm); Pain 8/10; 16:35 Body Mass Index 38.37 (86.18 kg, 149.86 cm) ap3 MDM: 17:00 Differential diagnosis: ectopic , ovarian cyst, pelvic inflammatory disease, cp urinary tract infection, vaginosis. 18:05 Patient medically screened. cp 20:33 Data reviewed: vital signs, nurses notes, lab test result(s), radiologic studies, cp ultrasound, and as a result, I will discharge patient. 20:33 Counseling: I had a detailed discussion with the patient and/or guardian regarding: the cp historical points, exam findings, and any diagnostic results supporting the discharge/admit diagnosis, lab results, radiology results, the need for outpatient follow up, an OB/Gyne specialist, to return to the emergency department if symptoms worsen or persist or if there are any questions or concerns that arise at home. Response to treatment: the patient's symptoms have markedly improved after treatment, and as a result, I will discharge patient. Special discussion: Based on the patient's Hx, exam, and Dx evaluation, there is no indication for emergent surgery or inpatient Tx. It is understood by the patient/guardian that if the Sx's persist or worsen they need to return immediately for re-evaluation. 03/14 16:40 Order name: CBC with Diff; Complete Time: 19:20 03/14 19:20 Interpretation: Normal except: RDW 15.4; EOSINOPHIL % 5.7; BASO% 1.4. 03/14 16:40 Order name: CMP; Complete Time: 19:20 03/14 19:20 Interpretation: Normal except: CL 110; BUN 6. cp 03/14 16:40 Order name: Lipase; Complete Time: 19:20 cp 03/14 16:40 Order name: Urine Microscopic Only; Complete Time: 19:20 cp 03/14 18:05 Order name: GC (GONORR/CHLAMYDIA) Probe 03/14 18:05 Order name: Wet Prep; Complete Time: 20:32 cp 03/14 17:20 Order name: Transvaginal Study Probe; Complete Time: 17:57 EDMS 03/14 17:58 Interpretation: Report reviewed. 03/14 18:36 Order name: Urine Dipstick-Ancillary; Complete Time: 19:20 EDMS 03/14 16:40 Order name: IV Saline Lock; Complete Time: 18:44 cp 03/14 16:40 Order name: Labs collected and sent; Complete Time: 18:44 cp 03/14 16:40 Order name: Urine Dipstick-Ancillary (obtain specimen); Complete Time: 18:44 cp 03/14 16:40 Order name: Urine Test (obtain specimen); Complete Time: 18:44 cp 03/14 18:05 Order name: Pelvic Exam Setup; Complete Time: 18:54 cp Administered Medications: 18:42 Drug: Ketorolac 15 mg Route: IVP; Site: right upper arm; jb4 19:15 Follow up: Response: No adverse reaction jb4 20:04 Drug: morphine 4 mg Route: IVP; Site: right upper arm; vc1 20:04 Drug: Doxycycline 100 mg Route: PO; vc1 20:05 Drug: Rocephin - (cefTRIAXone) 1 grams Route: IVPB; Infused Over: 30 mins; Site: right vc1 upper arm; 20:05 Drug: Zofran (Ondansetron) 4 mg Route: IVP; Site: right upper arm; vc1 Disposition: 22:04 Co-signature as Attending Physician, Ramiro Ignacio DO I was immediately available on-site ms3 in the Emergency Department for consultation in the care of the patient. . Disposition Summary: 03/14/22 20:33 Discharge Ordered Location: Home cp Problem: new cp Symptoms: have improved cp Condition: Stable cp Diagnosis - Female pelvic inflammatory disease, unspecified cp Followup: cp - With: Anisa Holliday MD - When: 1 week - Reason: Recheck today's complaints Discharge Instructions: - Discharge Summary Sheet cp - Pelvic Inflammatory Disease cp - Pelvic Pain, Female cp Forms: - Medication Reconciliation Form cp - Thank You Letter cp - Antibiotic Education cp - Prescription Opioid Use cp Prescriptions: - Naprosyn 500 mg Oral Tablet - take 1 tablet by ORAL route 2 times per day take with food; 20 tablet; Refills: cp 0, Product Selection Permitted - Doxycycline Hyclate 100 mg Oral Tablet - take 1 tablet by ORAL route every 12 hours; 20 tablet; Refills: 0, Product cp Selection Permitted - Metronidazole 500 mg Oral Tablet - take 1 tablet by ORAL route every 8 hours; 30 tablet; Refills: 0, Product cp Selection Permitted - Tramadol 50 mg Oral Tablet - take 1 tablet by ORAL route every 8 hours as needed; 12 tablet; Refills: 0, cp Product Selection Permitted Signatures: Dispatcher [employer] EDMS Juan A Sánchez PA PA cp Bryson, James RN RN jb4 Aletha Kidd RN RN ap3 Ramiro Ignacio DO DO ms3 Ally Coulter RN RN vc1 Corrections: (The following items were deleted from the chart) 17:20 16:40 Abdomen Limited+[id number].RAD.[id number] ordered. EDMS EDMS
[2022-03-14 21:21] VITALS: BP 124/70; TEMP 98.3; O2SAT 100
[2022-03-18 23:43] LABS: C.trachomatis RNA,TMA Not Detected (Not Detected)
== END 2022-03-14 21:16 | disposition home or self-care (01) ==
LOC: ER 16:17
DX: N73.9 Female pelvic inflammatory disease, unspecified (principal); Z88.1 Allergy status to other antibiotic agents; Z88.8 Allergy status to other drugs, medicaments and biological substances
CPT/HCPCS: 85025; 36415; 87210; 83690; 80053; 87590; 87490; 76830; 96375; 96374; 99284; J2405; 81003; 81015

== ENCOUNTER 2022-03-19 22:53 | Emergency (ER) | payer BC ==
[2022-03-19 23:24] LABS: Urine Blood Negative (Negative); Urine Glucose Negative (Negative); Urine Protein Negative (Negative)
[2022-03-19 23:48] LABS: Urine Bacteria <20 /HPF (<20); Urine RBC <5 /HPF (NONE SEEN)
[2022-03-20] MEDS ORDERED: NA CHLORIDE 0.9% 50 ML ONE (00:23)
[2022-03-20] MEDS ORDERED: CEFTRIAXONE 1000 MG/VIAL ONE (00:23)
[2022-03-20] MEDS ORDERED: MORPHINE 4 MG/ML SYR ONE ×2 (00:52→03:04)
[2022-03-20 00:53] LABS: Absolute Lymphocytes (CBC) 1.7 K/uL (0.7-4.9); Hematocrit 39.3 % (36.0-45.0); Lymphocytes % 27.1 % (15.3-44.8); MPV 9.1 fL (7.6-11.3); RBC Red Blood Cell Count 4.46 M/uL (3.86-4.86)
[2022-03-20] MEDS ORDERED: ONDANSETRON 4 MG/2 ML VIAL ONE (00:53)
[2022-03-20] MEDS ORDERED: NA CHLORIDE 0.9% 1,000 ML ONE (00:53)
[2022-03-20 00:55] LABS: Protime INR 1.03
[2022-03-20 01:07] LABS: Albumin 4.2 g/dL (3.4-5.0); Bilirubin Total 0.4 mg/dL (0.2-1.0); Potassium 3.4 mmol/L (3.5-5.1); Protein, Total 7.3 g/dL (6.4-8.2)
--- NOTE | 2022-03-20 04:55 | ER ---
Nurse's Notes [facility] Name: Adelaide Trinidad Age: 22 yrs Sex: Female : 2000 Arrival Date: 03/19/2022 Time: 22:56 Bed 12 Private MD: Diagnosis: Abdominal pain, Generalized Presentation: 03/19 23:05 Chief complaint: Patient states: "I was here last week and I told me I had Pelvic tw5 Inflammatory. I just feel like I am getting worse and I have not been able to keep anything down and the pain has now moved up my back.". Coronavirus screen: Vaccine status: Patient reports being unvaccinated. Ebola Screen: Patient negative for fever greater than or equal to 101.5 degrees Fahrenheit, and additional compatible Ebola Virus Disease symptoms Patient denies exposure to infectious person. Patient denies travel to an Ebola-affected area in the 21 days before illness onset. Initial Sepsis Screen: Does the patient meet any 2 criteria? No. Patient's initial sepsis screen is negative. Does the patient have a suspected source of infection? Yes: Other: PID. Risk Assessment: Do you want to hurt yourself or someone else? Patient reports no desire to harm self or others. Onset of symptoms was March 14, 1800. 23:05 Method Of Arrival: Ambulatory tw5 23:05 Acuity: LUIZ 3 tw5 Triage Assessment: 23:07 General: Appears uncomfortable, obese, Behavior is calm, cooperative, appropriate for tw5 age. Pain: Complains of pain in low back area and suprapubic area Pain currently is 9 out of 10 on a pain scale. 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 - Social history:: Smoking status: Patient denies any tobacco usage or history of. Screenin:09 Abuse screen: Denies threats or abuse. Denies injuries from another. Nutritional tw5 screening: No deficits noted. Tuberculosis screening: No symptoms or risk factors identified. Fall Risk None identified. Assessment: 03/20 00:30 General: Appears uncomfortable, Behavior is appropriate for age. Pain: Complains of lp1 pain in suprapubic area Pain radiates to back Pain currently is 8 out of 10 on a pain scale. Quality of pain is described as sharp. Neuro: Level of Consciousness is awake, alert, obeys commands. Cardiovascular: Patient's skin is warm and dry. Respiratory: Respiratory effort is even, unlabored. GI: Abdomen is obese, Reports lower abdominal pain, nausea, vomiting. : No signs and/or symptoms were reported regarding the genitourinary system. EENT: No signs and/or symptoms were reported regarding the EENT system. Derm: Skin is intact, Skin is dry, Skin is normal. Musculoskeletal: No deficits noted. 02:56 Reassessment: Patient returned from CT. lp1 05:15 Reassessment: Patient appears in no apparent distress at this time. Patient reports lp1 pain to pelvic area at this time, medication administered; Patient understands discharge instructions, friend at bedside for ride home. 05:15 Neuro: Gait is steady. lp1 Vital Signs: 03/19 23:05 BP 116 / 78; Pulse 85; Resp 14; Temp 98.5(O); Pulse Ox 98% on R/A; Weight 86.18 kg; tw5 Height 4 ft. 11 in. (149.86 cm); Pain 9/10; 03/20 00:59 BP 107 / 73; Pulse 88; Resp 18; Pulse Ox 99% on R/A; lp1 02:13 BP 109 / 62; lp1 03:06 BP 110 / 72; Pulse 75; Resp 18; Pulse Ox 97% on R/A; lp1 03/19 23:05 Body Mass Index 38.37 (86.18 kg, 149.86 cm) tw5 ED Course: 03/19 22:56 Patient arrived in ED. bp1 23:07 Triage completed. tw5 23:07 Arm band placed on right wrist. tw5 23:24 Luis Odell MD is Attending Physician. kdr 03/20 00:40 Missed attempt(s): 22 gauge in right forearm. Accessed peripheral vein via ultrasound, lp1 utilizing dynamic ultrasound technique using ,sterile technique, per hospital protocol. Clean \\T\\ dry. Dressing intact. Good blood return. Flushes easily. 20g IV to R AC. 00:40 Initial lab(s) drawn, by me, sent to lab. lp1 00:43 Aury Estrada, JAZ is Primary Nurse. lp1 00:44 Patient has correct armband on for positive identification. lp1 03:01 CT Abd/Pelvis - IV Contrast Only In Process Unspecified. EDMS 03:06 No provider procedures requiring assistance completed. lp1 05:21 IV discontinued, No redness/swelling at site. Pressure dressing applied. lp1 Administered Medications: 00:55 Drug: Zofran (Ondansetron) 4 mg Route: IVP; Site: right antecubital; lp1 02:00 Follow up: Response: Marked relief of symptoms; Nausea is decreased lp1 00:55 Drug: NS 0.9% 1000 ml Route: IV; Rate: 1 bolus; Site: right antecubital; lp1 02:56 Follow up: IV Status: Completed infusion; IV Intake: 1000ml lp1 00:58 Drug: morphine 4 mg {Note: RASS 0.} Route: IVP; Site: right antecubital; lp1 02:00 Follow up: Response: Pain is decreased lp1 01:17 Drug: Rocephin - (cefTRIAXone) 1 grams Route: IVPB; Infused Over: 30 mins; Site: right tw5 antecubital; 01:45 Follow up: IV Status: Completed infusion; IV Intake: 50ml lp1 03:05 Drug: morphine 4 mg {Note: RASS 0.} Route: IVP; Site: right antecubital; lp1 04:00 Follow up: Response: Pain is decreased lp1 05:15 Drug: [place] (HYDROcodone-acetaminophen) (7.5 mg-325 mg) 1 tabs Route: PO; lp1 05:22 Follow up: Response: Medication administered at discharge. lp1 Medication: 03/19 23:35 VIS not applicable for this client. lp1 Intake: 03/20 01:45 IV: 50ml; Total: 50ml. lp1 02:56 IV: 1000ml; Total: 1050ml. lp1 Outcome: 04:55 Discharge ordered by . kdr 05:21 Discharged to home ambulatory, with friend. lp1 05:21 Condition: good 05:21 Discharge instructions given to patient, Instructed on discharge instructions, follow up and referral plans. medication usage, Demonstrated understanding of instructions, follow-up care, medications, Prescriptions given X 1. 05:22 Patient left the ED. lp1 Signatures: Dispatcher [employer] EDMS Luis Odell MD MD kdr Aury Estrada RN RN lp1 Nohelia Blanton Tiffany tw5 Corrections: (The following items were deleted from the chart) 03/19 23:07 23:05 Onset of symptoms was March 19, 1800 tw5 tw5 23:07 23:05 BP 135 / 82; Pulse 85bpm; Resp 14bpm; Pulse Ox 98% RA; Temp 98.5F Oral; 86.18 kg; tw5 Height 4 ft. 11 in.; BMI: 38.3; Pain 9/10; tw5 23:08 23:07 Allergies: Doxycycline; tw5 tw5
--- NOTE | 2022-03-20 04:55 | EDPHYS ---
Physician Documentation [facility] Name: Adelaide Trinidad Age: 22 yrs Sex: Female : 2000 Arrival Date: 03/19/2022 Time: 22:56 Bed 12 Private MD: ED Physician Luis Odell HPI: 03/20 20:07 This 22 yrs old Female presents to ER via Ambulatory with complaints of Pelvic Pain. kdr 20:07 The patient presents with abdominal pain that is diffuse. Onset: The symptoms/episode kdr began/occurred gradually, 3 day(s) ago. The symptoms do not radiate. Associated signs and symptoms: none. The symptoms are described as achy, crampy, dull, vague, waxing/waning. Modifying factors: The symptoms are alleviated by nothing, the symptoms are aggravated by coughing, movement, touching the area, walking. Severity of pain: At its worst the pain was mild moderate just prior to arrival, in the emergency department the pain is unchanged. The patient has not experienced similar symptoms in the past. The patient has been recently seen at the [facility] Emergency Department, last week. 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 - Social history:: Smoking status: Patient denies any tobacco usage or history of. ROS: 03/20 20:07 Constitutional: Negative for fever, chills, and weight loss, Eyes: Negative for injury, kdr pain, redness, and discharge, ENT: Negative for injury, pain, and discharge, Neck: Negative for injury, pain, and swelling, Cardiovascular: Negative for chest pain, palpitations, and edema, Respiratory: Negative for shortness of breath, cough, wheezing, and pleuritic chest pain, Back: Negative for injury and pain, : Negative for injury, bleeding, discharge, and swelling, MS/Extremity: Negative for injury and deformity, Skin: Negative for injury, rash, and discoloration, Neuro: Negative for headache, weakness, numbness, tingling, and seizure activity. Psych: Negative for depression, anxiety, suicide ideation, homicidal ideation, and hallucinations, Allergy/Immunology: Negative for hives, rash, and allergies, Endocrine: Negative for neck swelling, polydipsia, polyuria, polyphagia, and marked weight changes, Hematologic/Lymphatic: Negative for swollen nodes, abnormal bleeding, and unusual bruising. Abdomen/GI: Positive for abdominal pain, nausea. Exam: 20:07 Constitutional: This is a well developed, well nourished patient who is awake, alert, kdr and in no acute distress. Head/Face: Normocephalic, atraumatic. Eyes: Pupils equal round and reactive to light, extra-ocular motions intact. Lids and lashes normal. Conjunctiva and sclera are non-icteric and not injected. Cornea within normal limits. Periorbital areas with no swelling, redness, or edema. Neck: Trachea midline, no thyromegaly or masses palpated, and no cervical lymphadenopathy. Supple, full range of motion without nuchal rigidity, or vertebral point tenderness. No Meningismus. Chest/axilla: Normal chest wall appearance and motion. Nontender with no deformity. No lesions are appreciated. Cardiovascular: Regular rate and rhythm with a normal S1 and S2. No gallops, murmurs, or rubs. Normal PMI, no JVD. No pulse deficits. Respiratory: Lungs have equal breath sounds bilaterally, clear to auscultation and percussion. No rales, rhonchi or wheezes noted. No increased work of breathing, no retractions or nasal flaring. Back: No spinal tenderness. No costovertebral tenderness. Full range of motion. Skin: Warm, dry with normal turgor. Normal color with no rashes, no lesions, and no evidence of cellulitis. MS/ Extremity: Pulses equal, no cyanosis. Neurovascular intact. Full, normal range of motion. Neuro: Awake and alert, GCS 15, oriented to person, place, time, and situation. Cranial nerves II-XII grossly intact. Motor strength 5/5 in all extremities. Sensory grossly intact. Cerebellar exam normal. Normal gait. Psych: Awake, alert, with orientation to person, place and time. Behavior, mood, and affect are within normal limits. 20:07 Abdomen/GI: Inspection: obese Bowel sounds: active, Palpation: soft, mild abdominal tenderness. Vital Signs: 03/19 23:05 BP 116 / 78; Pulse 85; Resp 14; Temp 98.5(O); Pulse Ox 98% on R/A; Weight 86.18 kg; tw5 Height 4 ft. 11 in. (149.86 cm); Pain 9/10; 03/20 00:59 BP 107 / 73; Pulse 88; Resp 18; Pulse Ox 99% on R/A; lp1 02:13 BP 109 / 62; lp1 03:06 BP 110 / 72; Pulse 75; Resp 18; Pulse Ox 97% on R/A; lp1 03/19 23:05 Body Mass Index 38.37 (86.18 kg, 149.86 cm) tw5 MDM: 04:55 Patient medically screened. kdr 20:07 Data reviewed: vital signs, nurses notes, lab test result(s), radiologic studies. kdr Counseling: I had a detailed discussion with the patient and/or guardian regarding: the historical points, exam findings, and any diagnostic results supporting the discharge/admit diagnosis, lab results, radiology results, the need for outpatient follow up. 03/19 23:09 Order name: UA MICROSCOPIC; Complete Time: 04:55 tw5 03/19 23:09 Order name: Urine Culture tw5 03/19 23:23 Order name: Urine --Ancillary (enter results); Complete Time: 04:55 mw2 03/19 23:24 Order name: Urine Dipstick-Ancillary; Complete Time: 04:55 EDMS 03/19 23:41 Order name: Blood Culture Adult (2) kdr 03/19 23:41 Order name: CBC with Diff; Complete Time: 04:55 kdr 03/19 23:41 Order name: CMP; Complete Time: 04:55 kdr 03/19 23:41 Order name: Lactate; Complete Time: 04:55 kdr 03/19 23:41 Order name: Protime (+inr); Complete Time: 04:55 kdr 03/19 23:41 Order name: Ptt, Activated; Complete Time: 04:55 kdr 03/20 02:19 Order name: CT Abd/Pelvis - IV Contrast Only kdr 03/19 23:09 Order name: Urine Dipstick-Ancillary (obtain specimen); Complete Time: 23:23 tw5 03/19 23:09 Order name: Urine Test (obtain specimen); Complete Time: 23:24 tw5 03/19 23:41 Order name: Accucheck; Complete Time: 00:58 kdr 03/19 23:41 Order name: Cardiac monitoring; Complete Time: 05:21 kdr 03/19 23:41 Order name: EKG - Nurse/Tech; Complete Time: 00:58 kdr 03/19 23:41 Order name: IV Saline Lock - Large Bore; Complete Time: 00:59 kdr 03/19 23:41 Order name: Labs collected and sent; Complete Time: 00:59 kdr 03/19 23:41 Order name: O2 Per Protocol; Complete Time: 00:59 kdr 03/19 23:41 Order name: O2 Sat Monitoring; Complete Time: 00:59 kdr Administered Medications: 00:55 Drug: Zofran (Ondansetron) 4 mg Route: IVP; Site: right antecubital; lp1 02:00 Follow up: Response: Marked relief of symptoms; Nausea is decreased lp1 00:55 Drug: NS 0.9% 1000 ml Route: IV; Rate: 1 bolus; Site: right antecubital; lp1 02:56 Follow up: IV Status: Completed infusion; IV Intake: 1000ml lp1 00:58 Drug: morphine 4 mg {Note: RASS 0.} Route: IVP; Site: right antecubital; lp1 02:00 Follow up: Response: Pain is decreased lp1 01:17 Drug: Rocephin - (cefTRIAXone) 1 grams Route: IVPB; Infused Over: 30 mins; Site: right tw5 antecubital; 01:45 Follow up: IV Status: Completed infusion; IV Intake: 50ml lp1 03:05 Drug: morphine 4 mg {Note: RASS 0.} Route: IVP; Site: right antecubital; lp1 04:00 Follow up: Response: Pain is decreased lp1 05:15 Drug: [place] (HYDROcodone-acetaminophen) (7.5 mg-325 mg) 1 tabs Route: PO; lp1 05:22 Follow up: Response: Medication administered at discharge. lp1 Disposition Summary: 03/20/22 04:55 Discharge Ordered Location: Home kdr Problem: new kdr Symptoms: have improved kdr Condition: Stable kdr Diagnosis - Abdominal pain, Generalized kdr Followup: kdr - With: Private Physician - When: 2 - 3 days - Reason: If symptoms return, Further diagnostic work-up, Recheck today's complaints, Continuance of care, Re-evaluation by your physician Discharge Instructions: - Discharge Summary Sheet kdr - Abdominal Pain, Adult, [id number] kdr Forms: - Medication Reconciliation Form kdr - Thank You Letter kdr Prescriptions: - Tramadol 50 mg Oral Tablet - take 1 tablet by ORAL route every 8 hours As needed as needed; 12 tablet; kdr Refills: 0, Product Selection Permitted Signatures: Dispatcher [employer] Luis Beal MD MD kdr Aury Estrada RN RN lp1 Alanan Roland tw5 Corrections: (The following items were deleted from the chart) 03/19 23:08 23:07 Allergies: Doxycycline; tw5 tw5
[2022-03-20] MEDS ORDERED: HYDROCODONE/APAP 7.5/325 MG TAB ONE (05:20)
[2022-03-20 05:29] VITALS: TEMP 98.5
[2022-03-20 05:36] VITALS: BP 110/72; O2SAT 97
--- NOTE | 2022-03-20 09:09 | EKG ---
Test Date: 2022-03-19 Test Time: 23:54:35 Shear Operator: CHRISTIANNE MEASUREMENT RESULTS: Intervals: Rate: 63 UT: 150 QRSD: 78 QT: 374 QTc: 382 [place]: P: 24 UT: 150 QRS: 67 T: 1 INTERPRETIVE STATEMENTS: Normal sinus rhythm with sinus arrhythmia Cannot rule out Anterior infarct, age undetermined Abnormal ECG Compared to ECG 02/12/2022 15:22:07 Myocardial infarct finding now present Right-axis deviation no longer present T-wave abnormality no longer present Electronically Signed On 03-20-22 09:07:58 CDT by Elijah Yanez
--- NOTE | 2022-03-20 13:50 | RAD REPORT ---
EXAM DESCRIPTION: CT - Abdomen Pelvis W Contrast - 03/20/2022 5:49 am CLINICAL HISTORY: 2 years Female, Abdominal pain, acute, nonlocalized COMPARISON: January 31, 2022 TECHNIQUE: Contiguous axial CT images of the abdomen and pelvis were obtained after administration o f intravenous contrast in the arterial and venous phase. Sagittal and coronal reformats were reviewed . This exam was performed according to our departmental dose-optimization program, which includes a utomated exposure control, adjustment of the mA and/or kV according to patient size and/or use of ite rative reconstruction technique. FINDINGS: Lung bases: Clear. Liver: Diffuse low-attenuation throughout the liver consistent with hepatocellular disease/fatty infi ltration. No focal liver lesion seen. Gallbladder: Unremarkable. No gallstones. No gallbladder wall thickening or pericholecystic fluid. Spleen: Unremarkable Pancreas: Pancreas is unremarkable. Adrenal glands: Within normal limits. Kidneys/ureters: Within normal limits Stomach/small bowel/colon: Stomach is unremarkable. Small bowel is unremarkable. Colon is unremar kable. Appendix: Appendectomy. Peritoneum: No free fluid. Vascular structures: within normal limits Lymph nodes: No abnormal lymph nodes. Bladder: Unremarkable. Pelvic organs: No acute abnormality Bones: No acute osseous abnormality. Soft tissues: Small fat containing umbilical hernia.. IMPRESSION: No acute intra-abdominal abnormality. Both kidneys enhance symmetrically. No hydronephro sis on either side. No perinephric inflammatory changes. Hepatic steatosis. Electronically signed by: Lauri Johnston DO 03/20/2022 4:26 AM CDT Due to temporary technical issues with the PACS/Fluency reporting system, reports are being signed by the in house radiologists without review as a courtesy to insure prompt reporting. The interpreting radiologist is fully responsible for the content of the report.
== END 2022-03-20 05:22 | disposition home or self-care (01) ==
LOC: ER 22:53
DX: R10.84 Generalized abdominal pain (principal); R11.0 Nausea; F41.9 Anxiety disorder, unspecified; F32.A Depression, unspecified; Z88.1 Allergy status to other antibiotic agents; Z88.8 Allergy status to other drugs, medicaments and biological substances
CPT/HCPCS: 93005; 87040 ×2; 87088; 85025; 87086; 36415; 81025; 85610; 83605; 85730; 80053; 74177; Q9967; J7030; J2405; 81003; 81015; 96361; 96365; 96375; 99284

== ENCOUNTER 2022-05-01 22:23 | Emergency (ER) | payer BC ==
[2022-05-02 00:30] LABS: Absolute Lymphocytes (CBC) 1.6 K/uL (0.7-4.9); Hematocrit 38.2 % (36.0-45.0); Lymphocytes % 25.4 % (15.3-44.8); MCV 90.2 fL (80-100); RBC Red Blood Cell Count 4.23 M/uL (3.86-4.86)
[2022-05-02 00:43] LABS: BUN Blood Urea Nitrogen 8 mg/dL (7-18); Bicarbonate 22 mmol/L (21-32); Glomerular Filtration Rate 89 ml/min (=/>90); Glucose Level 87 mg/dL (74-106); Potassium 3.6 mmol/L (3.5-5.1); Sodium Level 139 mmol/L (136-145); Troponin High Sensitivity < 3.0 pg/mL (<58.9)
[2022-05-02 00:44] LABS: Urine Blood 3+ (Negative); Urine Glucose Negative (Negative); Urine Protein Negative (Negative); Urine pH 7.5 (5.0-7.0)
[2022-05-02] MEDS ORDERED: KETOROLAC 30 MG/ML INJ ONE (01:30)
--- NOTE | 2022-05-02 03:38 | ER ---
Nurse's Notes [facility] Name: Adelaide Trinidad Age: 22 yrs Sex: Female : 2000 Arrival Date: 05/01/2022 Time: 22:25 Bed 6 Private MD: Diagnosis: Chest pain, unspecified Presentation: 05/01 23:15 Chief complaint: Patient states: "I'm having really bad chest pain and my heart is vc1 racing and I'm dizzy it has been keeping me up at night.". Coronavirus screen: Vaccine status: Patient reports being unvaccinated. At this time, the client does not indicate any symptoms associated with coronavirus-19. Ebola Screen: No symptoms or risks identified at this time. Initial Sepsis Screen: Does the patient meet any 2 criteria? No. Patient's initial sepsis screen is negative. Does the patient have a suspected source of infection? No. Patient's initial sepsis screen is negative. Risk Assessment: Do you want to hurt yourself or someone else? Patient reports no desire to harm self or others. Onset of symptoms was April 29, 2022. 23:15 Method Of Arrival: Ambulatory vc1 23:15 Acuity: LUIZ 3 vc1 Triage Assessment: 23:19 General: Appears in no apparent distress. Behavior is calm, cooperative, appropriate vc1 for age. Pain: Complains of pain in anterior aspect of left upper chest Pain radiates to anterior aspect of right upper chest, left arm and neck Pain currently is 7 out of 10 on a pain scale. Quality of pain is described as sharp, shooting. Neuro: Level of Consciousness is awake, alert, obeys commands, Oriented to person, place, time, situation, Appropriate for age. Cardiovascular: Reports chest pain, lightheadedness, nausea, Patient's skin is warm and dry. Respiratory: Airway is patent Respiratory effort is even, unlabored, Respiratory pattern is regular, symmetrical. GI: Reports nausea. : No deficits noted. Derm: No deficits noted. Musculoskeletal: No deficits noted. 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 - Social history:: Smoking status: Patient denies any tobacco usage or history of. - Family history:: not pertinent. - Hospitalizations: : No recent hospitalization is reported. Screenin:19 Abuse screen: Denies threats or abuse. Nutritional screening: No deficits noted. vc1 Tuberculosis screening: No symptoms or risk factors identified. Fall Risk None identified. Assessment: 05/02 00:36 Reassessment: Chantale Hazel MD notified. vc1 Vital Signs: 05/01 23:15 Pulse 89; Resp 18; Temp 97.9; Pulse Ox 98% on R/A; Weight 86.18 kg; Height 4 ft. 11 in. vc1 (149.86 cm); Pain 7/10; 23:19 BP 116 / 70; vc1 05/02 01:31 BP 114 / 75; Pulse 72; Resp 18 S; Pulse Ox 100% on R/A; as6 03:17 BP 111 / 66; Pulse 78; Resp 18 S; Pulse Ox 98% on R/A; as6 05/01 23:15 Body Mass Index 38.37 (86.18 kg, 149.86 cm) vc1 ED Course: 05/01 22:25 Patient arrived in ED. ag3 22:55 Steven Arita MD is Attending Physician. rn 23:14 Spencer Duke RN is Primary Nurse. as6 23:17 Triage completed. vc1 23:19 Arm band placed on right wrist. vc1 23:19 Patient has correct armband on for positive identification. vc1 23:20 Patient maintains SpO2 saturation greater than 95% on room air. vc1 23:31 XRAY Chest (1 view) In Process Unspecified. EDMS 23:46 Inserted saline lock: 20 gauge in right hand, using aseptic technique. kl 05/02 01:31 Inserted saline lock: 20 gauge in right antecubital area, using aseptic technique. as6 01:59 CT Chest For PE Angio In Process Unspecified. EDMS 04:13 No provider procedures requiring assistance completed. IV discontinued, intact, as6 bleeding controlled, No redness/swelling at site. Pressure dressing applied. Administered Medications: 01:25 Drug: Ketorolac 15 mg Route: IVP; Site: right hand; as6 04:13 Follow up: Response: No adverse reaction as6 Medication: 04:13 VIS not applicable for this client. as6 Outcome: 03:37 Discharge ordered by . rn 04:13 Discharged to home ambulatory. as6 04:13 Condition: stable 04:13 Discharge instructions given to patient, Instructed on discharge instructions, follow up and referral plans. Demonstrated understanding of instructions, follow-up care. 04:13 Patient left the ED. as6 Signatures: Dispatcher [employer] EDMS Rina Bhardwaj RN RN Steven Friedman MD MD rn Gomez, Alice ag3 Slawson, Ashby, RN RN as6 Ally Coulter RN RN vc1
--- NOTE | 2022-05-02 03:38 | EDPHYS ---
Physician Documentation [facility] Name: Adelaide Trinidad Age: 22 yrs Sex: Female : 2000 Arrival Date: 05/01/2022 Time: 22:25 Bed 6 Private MD: ED Physician Steven Arita HPI: 05/01 23:38 This 22 yrs old Female presents to ER via Ambulatory with complaints of Chest Pain. rn 23:38 The patient or guardian reports chest pain that is located primarily in the chest rn diffusely. The pain does not radiate. Associated signs and symptoms: Pertinent positives: palpitations, Pertinent negatives: abdominal pain, cough, lower extremity pain, lower extremity swelling, shortness of breath. The chest pain is described as sharp. Duration: The patient or guardian reports multiple episodes, that are intermittent. Modifying factors: The symptoms are alleviated by nothing. the symptoms are aggravated by nothing. Severity of pain: At its worst the pain was moderate in the emergency department the pain has improved. The patient has not experienced similar symptoms in the past. The patient has not recently seen a physician. Pt reports chest pain, "shoots across", intermittent, lasts for minutes, assoc with heart racing or pounding, currently no sob or palpitations. Reports episodes in past of chest pain attributed to her asthma, but does not feel this is asthma. No trauma. No hemoptysis. No hx of cardiac problems. No early cardiac problems in family. . 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 - Social history:: Smoking status: Patient denies any tobacco usage or history of. - Family history:: not pertinent. - Hospitalizations: : No recent hospitalization is reported. ROS: 23:38 Constitutional: Negative for fever, chills, and weight loss, Eyes: Negative for injury, rn pain, redness, and discharge, Cardiovascular: Negative for palpitations, and edema, Respiratory: Negative for shortness of breath, cough, wheezing, and pleuritic chest pain, Abdomen/GI: Negative for abdominal pain, nausea, vomiting, diarrhea, and constipation, Back: Negative for injury and pain, MS/Extremity: Negative for injury and deformity, Skin: Negative for injury, rash, and discoloration, Neuro: Negative for headache, weakness, numbness, tingling, and seizure. Exam: 23:38 Constitutional: This is a well developed, well nourished patient who is awake, alert, rn and in no acute distress. Head/Face: Normocephalic, atraumatic. Eyes: Periorbital areas with no swelling, redness, or edema. Cardiovascular: Regular rate and rhythm. No pulse deficits. Respiratory: No increased work of breathing, no retractions or nasal flaring. Abdomen/GI: Soft, non-tender Skin: Warm, dry MS/ Extremity: Pulses equal, no cyanosis. Neuro: Awake and alert, GCS 15 Vital Signs: 23:15 Pulse 89; Resp 18; Temp 97.9; Pulse Ox 98% on R/A; Weight 86.18 kg; Height 4 ft. 11 in. vc1 (149.86 cm); Pain 7/10; 23:19 BP 116 / 70; vc1 0706 01:31 BP 114 / 75; Pulse 72; Resp 18 S; Pulse Ox 100% on R/A; as6 03:17 BP 111 / 66; Pulse 78; Resp 18 S; Pulse Ox 98% on R/A; as6 05/01 23:15 Body Mass Index 38.37 (86.18 kg, 149.86 cm) vc1 MDM: 05/01 22:55 Patient medically screened. rn 05/02 03:37 Differential diagnosis: acute pericarditis, anxiety, chest wall pain, costochondritis, rn esophagitis, gastritis, gastroesophageal reflux disease (GERD), pleurisy, pneumonia, pneumothorax, pulmonary embolus. Data reviewed: vital signs, nurses notes, lab test result(s), EKG, radiologic studies, CT scan, plain films, and as a result, I will discharge patient. Counseling: I had a detailed discussion with the patient and/or guardian regarding: the historical points, exam findings, and any diagnostic results supporting the discharge/admit diagnosis, lab results, radiology results, the need for outpatient follow up, to return to the emergency department if symptoms worsen or persist or if there are any questions or concerns that arise at home. Response to treatment: the patient's symptoms have mildly improved after treatment, and as a result, I will discharge patient. Special discussion: Based on the patient's history, exam, and Dx evaluation, there is no indication for emergent intervention or inpatient Tx. It is understood by the patient/guardian that if the Sx's persist or worsen they need to return immediately for re-evaluation. I discussed with the patient/guardian in detail that at this point there is no indication for admission to the hospital. It is understood, however, that if the symptoms persist or worsen the patient needs to return immediately for re-evaluation. Based on the history and exam findings, there is no indication for further emergent testing or inpatient evaluation. 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 I discussed with the patient/guardian the need to see the primary care provider for further evaluation of the symptoms. 05/01 23:14 Order name: Basic Metabolic Panel; Complete Time: 00:56 [facility] 05/01 23:14 Order name: CBC with Diff; Complete Time: 00:36 1 05/01 23:14 Order name: D-Dimer; Complete Time: 00:56 1 05/01 23:14 Order name: Troponin HS; Complete Time: 00:56 [facility] 05/02 00:43 Order name: Urine --Ancillary (enter results); Complete Time: 02:55 mw2 05/02 00:44 Order name: Urine Dipstick-Ancillary; Complete Time: 00:56 EDMS 05/01 23:14 Order name: XRAY Chest (1 view) [facility] 05/01 23:14 Order name: EKG; Complete Time: 23:15 [facility] 05/01 23:14 Order name: Cardiac monitoring; Complete Time: 00:43 [facility] 05/01 23:14 Order name: EKG - Nurse/Tech; Complete Time: 23:50 vc1 05/01 23:14 Order name: IV Saline Lock; Complete Time: 00:43 [facility] 05/01 23:14 Order name: Labs collected and sent; Complete Time: 00:43 vc1 05/02 00:36 Order name: CT Chest For PE Angio rn 05/01 23:14 Order name: O2 Per Protocol; Complete Time: 00:43 vc1 05/01 23:14 Order name: O2 Sat Monitoring; Complete Time: 00:43 vc1 05/01 23:14 Order name: Urine Dipstick-Ancillary (obtain specimen); Complete Time: 00:43 vc1 05/01 23:14 Order name: Urine Test (obtain specimen); Complete Time: 00:43 vc1 Administered Medications: 01:25 Drug: Ketorolac 15 mg Route: IVP; Site: right hand; as6 04:13 Follow up: Response: No adverse reaction as6 Disposition Summary: 05/02/22 03:37 Discharge Ordered Location: Home rn Problem: new rn Symptoms: have improved rn Condition: Stable rn Diagnosis - Chest pain, unspecified rn Followup: rn - With: Private Physician - When: As needed - Reason: Recheck today's complaints, Re-evaluation by your physician Discharge Instructions: - Discharge Summary Sheet rn - Nonspecific Chest Pain, Adult rn - Pain Without a Known Cause rn Forms: - Medication Reconciliation Form rn - Thank You Letter rn - Antibiotic pattern illustrator - Prescription Opioid Use rn Signatures: Dispatcher [employer] EDSteven Zhou MD MD rn Slawson, Ashby, RN RN as6 Ally Coulter RN RN vc1
[2022-05-02 05:16] VITALS: TEMP 97.9
[2022-05-02 05:20] VITALS: BP 111/66; O2SAT 98
--- NOTE | 2022-05-02 09:44 | RAD REPORT ---
EXAM DESCRIPTION: RAD - Chest Single View - 05/01/2022 11:29 pm CLINICAL HISTORY: 22 years, Female, CHEST PAIN COMPARISON: None. FINDINGS: Single view of the chest was obtained portable. No prior films are available for compariso n. The cardiomediastinal silhouette demonstrate to be unremarkable. The heart is not enlarged. The thoracic aorta is unremarkable. Costophrenic angles are sharp. No areas of consolidation or masses are seen. The rest of the soft tissue and bony structures demonstrate to be unremarkable. IMPRESSION: No acute cardiopulmonary process identified. Electronically signed by: Arash Tucker MD 05/02/2022 12:33 AM CDT Due to temporary technical issues with the PACS/Fluency reporting system, reports are being signed by the in house radiologists without review as a courtesy to insure prompt reporting. The interpreting radiologist is fully responsible for the content of the report.
--- NOTE | 2022-05-02 11:06 | EKG ---
Test Date: 2022-05-01 Test Time: 23:50:13 Batch Attendant: TITO MEASUREMENT RESULTS: Intervals: Rate: 80 TN: 150 QRSD: 78 QT: 372 QTc: 429 Hurricane: P: 33 TN: 150 QRS: 74 T: -20 INTERPRETIVE STATEMENTS: Normal sinus rhythm T wave abnormality, consider anterior ischemia Abnormal ECG Compared to ECG 03/19/2022 23:54:35 T-wave abnormality now present Possible ischemia now present Sinus arrhythmia no longer present Myocardial infarct finding no longer present Electronically Signed On 05-02-22 11:05:46 CDT by Renato Cook
--- NOTE | 2022-05-02 14:33 | RAD REPORT ---
EXAM DESCRIPTION: CT - Chest For Pe Angio - 05/02/2022 6:30 am CLINICAL HISTORY: 22 years, Female, Pulmonary embolism (PE) suspected, positive D-dimer COMPARISON: 11/26/2021 TECHNIQUE: Multiple transaxial tomograms of the chest were obtained from the lung apices through the lung bases utilizing 2 mm slice thickness at 2 mm interval reconstruction after the administration o f large bolus of IV contrast for complete opacification of the pulmonary arteries. Subsequent 3-D maximum intensity projection images were generated in the coronal and sagittal plane f or review. This exam was performed according to our departmental dose-optimization protocol, which includes auto mated exposure control, adjustment of the mA and/or kV according to patient size and/or use of iterat salomón reconstruction technique. FINDINGS: The lungs parenchyma demonstrate demonstrate to be clear. No masses, nodules and/or consol idations are identified. The trachea mainstem bronchus demonstrate to be normal. There is no signif icant pericardial or pleural effusions. The thoracic aorta demonstrate to be within normal limits. No evidence for dissection/or aneurysm. Th e heart is normal in size. No evidence for right ventricular strain. There are no coronary artery xenia cifications. There is no significant mediastinal and/or hilar lymphadenopathy. The axillary regions demonstrate to be clear. Pulmonary arteries demonstrate to be normal, no intraluminal defect are seen that would suggest pulmo nary embolus. The bone windows demonstrate no significant skeletal lesions. The visualized portions of the upper abdomen demonstrate decreased attenuation of the liver correspon ding to fatty infiltration. IMPRESSION: No CT evidence for pulmonary embolus. Unremarkable CT scan of the chest with contrast. Fatty infiltration of the liver. Electronically signed by: Arash Tucker MD 05/02/2022 3:16 AM CDT Due to temporary technical issues with the PACS/Fluency reporting system, reports are being signed by the in house radiologists without review as a courtesy to insure prompt reporting. The interpreting radiologist is fully responsible for the content of the report.
== END 2022-05-02 04:13 | disposition home or self-care (01) ==
LOC: ER 22:23
DX: R07.9 Chest pain, unspecified (principal); J45.909 Unspecified asthma, uncomplicated; Z88.1 Allergy status to other antibiotic agents; Z88.8 Allergy status to other drugs, medicaments and biological substances
CPT/HCPCS: 93005; 85025; 80048; 36415; 81025; 85379; 81003; 84484; 71275; 71045; Q9967

== ENCOUNTER 2022-06-03 22:54 | Emergency (ER) | payer BC ==
[2022-06-04] MEDS ORDERED: NA CHLORIDE 0.9% 1,000 ML ONE (00:34)
[2022-06-04] MEDS ORDERED: MORPHINE 4 MG/ML SYR ONE (00:34)
[2022-06-04] MEDS ORDERED: ONDANSETRON 4 MG/2 ML VIAL ONE (00:34)
[2022-06-04 00:53] LABS: Urine Blood Negative (Negative); Urine Glucose Negative (Negative); Urine Protein Negative (Negative); Urine Specific Gravity 1.025 (1.005-1.030)
[2022-06-04 01:06] LABS: Urine Specific Gravity/Preg 1.025 (1.005-1.030)
[2022-06-04 01:11] LABS: Protime INR 0.93
[2022-06-04 01:13] LABS: Absolute Lymphocytes (CBC) 1.5 K/uL (0.7-4.9); Hematocrit 34.9 % (36.0-45.0); Lymphocytes % 23.4 % (15.3-44.8); MCV 87.6 fL (80-100); RBC Red Blood Cell Count 3.98 M/uL (3.86-4.86)
[2022-06-04 01:17] LABS: SARS-CoV-2 Antigen Rapid Res Negative (Negative)
[2022-06-04 01:32] LABS: ALT/SGPT 42 U/L (12-78); AST/SGOT 23 U/L (15-37); Albumin 3.9 g/dL (3.4-5.0); Alkaline Phosphatase 59 U/L (45-117); BUN Blood Urea Nitrogen 8 mg/dL (7-18); Bicarbonate 22 mmol/L (21-32); Bilirubin Direct < 0.1 mg/dL (0-0.2); Bilirubin Total 0.2 mg/dL (0.2-1.0); Glomerular Filtration Rate 84 ml/min (=/>90); Glucose Level 97 mg/dL (74-106); NT PRO-BNP 13 pg/mL (<125); Phosphorus 3.7 mg/dL (2.5-4.9); Potassium 3.7 mmol/L (3.5-5.1); Protein, Total 7.1 g/dL (6.4-8.2); Sodium Level 138 mmol/L (136-145); Troponin High Sensitivity 3.8 pg/mL (<58.9)
[2022-06-04 01:52] LABS: Urine Bacteria 20-50 /HPF (<20)
[2022-06-04 01:53] LABS: Urine RBC None Seen /HPF (None Seen)
[2022-06-04] MEDS ORDERED: FLUORESCEIN SODIUM 1 MG/WRAP ONE (04:01)
[2022-06-04] MEDS ORDERED: TETRACAINE HCL 0.5% 4ML OPTH ONE (04:01)
--- NOTE | 2022-06-04 04:40 | ER ---
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 Coronavirus screen: At this time, the client does not indicate any symptoms associated with coronavirus-19. Ebola Screen: No symptoms or risks identified at this time. Initial Sepsis Screen: Does the patient meet any 2 criteria? No. Patient's initial sepsis screen is negative. Does the patient have a suspected source of infection? No. Patient's initial sepsis screen is negative. Risk Assessment: Do you want to hurt yourself or someone else? Patient reports no desire to harm self or others. Onset of symptoms was June 03, 2022. 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 - Social history:: Smoking status: Patient denies any tobacco usage or history of. Screenin/08 00:51 Abuse screen: Denies threats or abuse. Denies injuries from another. Nutritional as6 screening: No deficits noted. Tuberculosis screening: No symptoms or risk factors identified. Fall Risk None identified. Assessment: 00:52 General: Appears in no apparent distress. Behavior is calm, cooperative. Pain: as6 Complains of pain in neck Pain radiates to back Pain currently is 7 out of 10 on a pain scale. Neuro: Level of Consciousness is awake, alert. Respiratory: Respiratory effort is even, unlabored. Musculoskeletal: Swelling present in back of neck. Vital Signs: 06/03 23:06 BP 113 / 78; Pulse 80; Resp 16 S; Temp 99.1(O); Pulse Ox 100% on R/A; Weight 86.18 kg bb (R); Height 4 ft. 11 in. (149.86 cm) (R); Pain 7/10; 06/04 00:54 BP 101 / 55; Pulse 65; Resp 18 S; Pulse Ox 99% on R/A; as6 03:00 BP 109 / 70; Pulse 63; Resp 16 S; Pulse Ox 100% on R/A; as6 03:00 BP 106 / 64; Pulse 77; Resp 18 S; Pulse Ox 98% on R/A; as6 06/03 23:06 Body Mass Index 38.37 (86.18 kg, 149.86 cm) ED Course: 06/03 22:56 Patient arrived in ED. as 23:08 Triage completed. bb 23:08 Arm band placed on Patient placed in waiting room, Patient notified of wait time. bb 23:29 Alanna Roland is Primary Nurse. tw5 23:38 Geovanny Jean MD is Attending Physician. [facility] 06/04 00:30 XRAY Chest (1 view) In Process Unspecified. EDMS 00:43 Inserted saline lock: 22 gauge in left antecubital area, using aseptic technique. Blood as6 collected. 00:50 Troponin HS Sent. as6 00:50 PT-INR Sent. as6 00:50 NT PRO-BNP Sent. as6 00:50 Magnesium Sent. as6 00:50 LFT's Sent. as6 00:50 CBC with Diff Sent. as6 00:50 Basic Metabolic Panel Sent. as6 00:51 Placed in gown. Bed in low position. Call light in reach. Side rails up X2. Pulse ox as6 on. NIBP on. 00:51 Phosphorus Sent. as6 00:51 SARS RAPID Sent. as6 01:13 CT Head C Spine In Process Unspecified. EDMS 04:36 Lauri De La Fuente MD is Referral Physician. 7 04:36 Darrin Short MD is Referral Physician. 7 04:37 Waleska Thompson MD is Referral Physician. 7 04:55 No provider procedures requiring assistance completed. IV discontinued, intact, as6 bleeding controlled, No redness/swelling at site. Pressure dressing applied. Administered Medications: 00:45 Drug: NS 0.9% 1000 ml Route: IV; Rate: 1000 ml; Site: left antecubital; as6 04:55 Follow up: Response: No adverse reaction; IV Status: Completed infusion; IV Intake: as6 1000ml 00:45 Drug: morphine 4 mg Route: IVP; Infused Over: 4 mins; Site: left antecubital; as6 04:55 Follow up: Response: No adverse reaction as6 00:45 Drug: Zofran (Ondansetron) 4 mg Route: IVP; Site: left antecubital; as6 04:55 Follow up: Response: No adverse reaction as6 Medication: 04:56 VIS not applicable for this client. as6 Intake: 04:55 IV: 1000ml; Total: 1000ml. as6 Outcome: 04:40 Discharge ordered by . 7 04:56 Discharged to home ambulatory. as6 04:56 Condition: stable 04:56 Discharge instructions given to patient, Instructed on discharge instructions, follow up and referral plans. medication usage, Demonstrated understanding of instructions, follow-up care, medications, Prescriptions given X 2. 04:57 Patient left the ED. as6 Signatures: Dispatcher [employer] Jessica Dallas Brenda, RN RN Geovanny Hadley MD MD [facility] Alanna Roland 5 Spencer Duke RN RN as6 Corrections: (The following items were deleted from the chart) 00:54 00:52 General: Appears in no apparent distress. Behavior is calm, cooperative, as6 as6
--- NOTE | 2022-06-04 04:41 | EDPHYS ---
Physician Documentation [facility] Name: Adelaide Trinidad Age: 22 yrs Sex: Female : 2000 Arrival Date: 06/03/2022 Time: 22:56 Bed 14 Private MD: ED Physician Geovanny Jean HPI: 06/03 23:55 This 22 yrs old Female presents to ER via Ambulatory with complaints of Lump on neck, mh7 Blurred Vision, Numbness Of Face, - right. 23:55 The patient or guardian complains of pain, that is acute, lump. The symptoms are mh7 located at the back of neck. Onset: The symptoms/episode began/occurred 1 week(s) ago. 23:55 Context: The problem was sustained at an unknown location, The neck injury/problem mh7 resulted from from unknown cause. Associated signs and symptoms: Pertinent positives: Paresthesias Pertinent negatives: chills, constipation, fever, headache, bladder incontinence, bowel incontinence, nausea, vomiting, weakness. The pain radiates to the face. Modifying factors: The symptoms are alleviated by remaining still, the symptoms are aggravated by movement, pressure. Severity of symptoms: At their worst the symptoms were moderate, 2 day(s) ago, in the emergency department the symptoms have improved, mildly. Also reports right eye blurry vision earlier today while at work \T\ 1600.. 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 - Social history:: Smoking status: Patient denies any tobacco usage or history of. ROS: 23:55 Constitutional: Negative for fever, chills, and weight loss, Eyes: Negative for injury, mh7 pain, redness, and discharge, ENT: Negative for injury, pain, and discharge, Cardiovascular: Negative for chest pain, palpitations, and edema, Respiratory: Negative for shortness of breath, cough, wheezing, and pleuritic chest pain, Abdomen/GI: Negative for abdominal pain, nausea, vomiting, diarrhea, and constipation, Back: Negative for injury and pain, : Negative for injury, bleeding, discharge, and swelling, MS/Extremity: Negative for injury and deformity, Skin: Negative for injury, rash, and discoloration. 23:55 Psych: Negative for depression, anxiety, suicide ideation, homicidal ideation, and hallucinations, Allergy/Immunology: Negative for hives, rash, and allergies, Endocrine: Negative for neck swelling, polydipsia, polyuria, polyphagia, and marked weight changes, Hematologic/Lymphatic: Negative for swollen nodes, abnormal bleeding, and unusual bruising. 23:55 Neuro: Negative for altered mental status, dizziness, gait disturbance, hearing loss, loss of consciousness, seizure activity, speech changes, syncope, near syncope, weakness. Exam: 23:55 Constitutional: This is a well developed, well nourished patient who is awake, alert, mh7 and in no acute distress. Head/Face: Normocephalic, atraumatic. ENT: Nares patent. No nasal discharge, no septal abnormalities noted. Tympanic membranes are normal and external auditory canals are clear. Oropharynx with no redness, swelling, or masses, exudates, or evidence of obstruction, uvula midline. Mucous membranes moist. Chest/axilla: Normal chest wall appearance and motion. Nontender with no deformity. No lesions are appreciated. Cardiovascular: Regular rate and rhythm with a normal S1 and S2. No gallops, murmurs, or rubs. Normal PMI, no JVD. No pulse deficits. Respiratory: Lungs have equal breath sounds bilaterally, clear to auscultation and percussion. No rales, rhonchi or wheezes noted. No increased work of breathing, no retractions or nasal flaring. Abdomen/GI: Soft, non-tender, with normal bowel sounds. No distension or tympany. No guarding or rebound. No evidence of tenderness throughout. Back: No spinal tenderness. No costovertebral tenderness. Full range of motion. Skin: Warm, dry with normal turgor. Normal color with no rashes, no lesions, and no evidence of cellulitis. MS/ Extremity: Pulses equal, no cyanosis. Neurovascular intact. Full, normal range of motion. Neuro: Awake and alert, GCS 15, oriented to person, place, time, and situation. Cranial nerves II-XII grossly intact. Motor strength 5/5 in all extremities. Sensory grossly intact. Cerebellar exam normal. Normal gait. Psych: Awake, alert, with orientation to person, place and time. Behavior, mood, and affect are within normal limits. 06/04 02:20 Eyes: Periorbital structures: appear normal, Pupils: equal, round, and reactive to mh7 light and accomodation, Extraocular movements: intact throughout, Conjunctiva: normal, Corneas: abrasion, that is moderate sized, on the right, at 6 o'clock, a fluorescein strip employed to appreciate the findings, Sclera: no appreciated abnormality, Lids and lashes: appear normal, funduscopic exam reveals no obvious abnormalities, Visual topete: are intact, Nystagmus: is not appreciated, Intraocular pressure: right eye = 17mmHg, left eye = 17mmHg. Vital Signs: 06/03 23:06 BP 113 / 78; Pulse 80; Resp 16 S; Temp 99.1(O); Pulse Ox 100% on R/A; Weight 86.18 kg bb (R); Height 4 ft. 11 in. (149.86 cm) (R); Pain 7/10; 06/04 00:54 BP 101 / 55; Pulse 65; Resp 18 S; Pulse Ox 99% on R/A; as6 03:00 BP 109 / 70; Pulse 63; Resp 16 S; Pulse Ox 100% on R/A; as6 03:00 BP 106 / 64; Pulse 77; Resp 18 S; Pulse Ox 98% on R/A; as6 06/03 23:06 Body Mass Index 38.37 (86.18 kg, 149.86 cm) MDM: 04:28 Differential diagnosis: C-Spine Fracture Cervical Disc Herniation Cervical Discogenic mh7 Pain Cervical Raiculopathy cervical strain, torticollis, Paresthesia, lipoma, abscess, corneal abrasion, Cruz's Palsy. Data reviewed: vital signs, nurses notes, lab test result(s), cardiac enzymes, CBC, electrolytes, urinalysis, EKG, radiologic studies, CT scan, plain films. Data interpreted: Pulse oximetry: on room air is 99 %. Interpretation: normal. 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 Response to treatment: the patient's symptoms have resolved after treatment, the patient's blood pressure is in an acceptable range, mental status has returned to baseline, the patient no longer shows bradycardia, the patient is not short of breath, the patient is not tachycardic, the patient's pain is gone, the patient's temperature has normalized, the patient's condition has returned to base line, the patient is now symptom free, patient is well hydrated. Sitting up on stretcher playing with cell phone.. 04:40 Patient medically screened. 06/04 00:06 Order name: Basic Metabolic Panel; Complete Time: 06/04 00:06 Order name: CBC with Diff; Complete Time: [facility] 06/04 00:06 Order name: LFT's; Complete Time: [facility] 06/04 00:06 Order name: Magnesium; Complete Time: 06/04 00:06 Order name: NT PRO-BNP; Complete Time: [facility] 06/04 00:06 Order name: PT-INR; Complete Time: : [facility] 06/04 00:06 Order name: Troponin HS; Complete Time: [facility] 06/04 00:06 Order name: XRAY Chest (1 view) [facility] 06/04 00:06 Order name: Phosphorus; Complete Time: [facility] 06/04 00:08 Order name: SARS RAPID; Complete Time: [facility] 06/04 00:53 Order name: Urine Dipstick-Ancillary; Complete Time: 01:03 EDMS 06/04 00:54 Order name: Urine --Ancillary (enter results); Complete Time: 01:17 2 06/04 01:17 Order name: Urine Microscopic Only; Complete Time: 06/04 01:17 Order name: Urine Culture [facility] 06/04 00:06 Order name: EKG; Complete Time: 00:08 [facility] 06/04 00:06 Order name: Cardiac monitoring; Complete Time: 00:51 [facility] 06/04 00:06 Order name: EKG - Nurse/Tech; Complete Time: 00:50 06/04 00:06 Order name: IV Saline Lock; Complete Time: 00:50 06/04 00:06 Order name: Labs collected and sent; Complete Time: 00:50 06/04 00:06 Order name: O2 Per Protocol; Complete Time: 00:50 06/04 00:06 Order name: O2 Sat Monitoring; Complete Time: 00:50 06/04 00:06 Order name: Urine Dipstick-Ancillary (obtain specimen); Complete Time: 00:51 06/04 00:06 Order name: Urine Test (obtain specimen); Complete Time: 00:51 06/04 00:06 Order name: CT Head C Spine [facility] 06/04 00:06 Order name: Eye Tray; Complete Time: 03:55 mh7 Administered Medications: 00:45 Drug: NS 0.9% 1000 ml Route: IV; Rate: 1000 ml; Site: left antecubital; as6 04:55 Follow up: Response: No adverse reaction; IV Status: Completed infusion; IV Intake: as6 1000ml 00:45 Drug: morphine 4 mg Route: IVP; Infused Over: 4 mins; Site: left antecubital; as6 04:55 Follow up: Response: No adverse reaction as6 00:45 Drug: Zofran (Ondansetron) 4 mg Route: IVP; Site: left antecubital; as6 04:55 Follow up: Response: No adverse reaction as6 Disposition Summary: 06/04/22 04:40 Discharge Ordered Location: Home [facility] Problem: new [facility] Symptoms: have improved [facility] Condition: Stable [facility] Diagnosis - 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, face and neck 7 - Paresthesia of skin mh7 - Corneal Abrasion, right 7 Followup: 7 - With: Private Physician - When: 1 - 2 days - Reason: Worsening of condition, Recheck today's complaints, Continuance of care, Re-evaluation by your physician Followup: 7 - With: Lauri De La Fuente MD - When: 1 - 2 days - Reason: Worsening of condition, Recheck today's complaints Followup: [facility] - With: Darrin Short MD - When: 1 - 2 days - Reason: Worsening of condition, Recheck today's complaints Followup: [facility] - With: Waleska Thompson MD - When: 1 - 2 days - Reason: Worsening of condition, Recheck today's complaints Discharge Instructions: - Discharge Summary Sheet 7 - Lipoma 7 - Corneal Abrasion, [id number] 7 - Paresthesia, [id number] [facility] Forms: - Medication Reconciliation Form [facility] - Thank You Letter [facility] - Antibiotic Education [facility] - Prescription Opioid Use [facility] Prescriptions: - Ciloxan 0.3 % Ophthalmic Drops - instill 2 drops by OPHTHALMIC route every 6 hours for 7 days; 5 milliliter; 7 Refills: 0, Product Selection Permitted - Tramadol 50 mg Oral Tablet - take 1 tablet by ORAL route every 8 hours as needed; 12 tablet; Refills: 0, [facility] Product Selection Permitted Signatures: Dispatcher [employer] Aria Fernandes RN RN bb Holmes, Maurice, MD MD [facility] Spencer Duke RN RN as6 Mona Zabala PA PA sb3 Corrections: (The following items were deleted from the chart) 01:26 01:19 The patient's problem [place] as [place] [id number]
[2022-06-04 05:18] VITALS: TEMP 99.1
[2022-06-04 05:37] VITALS: BP 106/64; O2SAT 98
--- NOTE | 2022-06-04 12:52 | RAD REPORT ---
EXAM DESCRIPTION: CT - [id number] - 06/04/2022 6:52 am CLINICAL HISTORY: 22 years Female pain COMPARISON: CT head and CT cervical spine 03/06/2021. TECHNIQUE: Noncontrast CT of the head and cervical spine. This exam was performed according to our departmental dose-optimization program, which includes autom ated exposure control, adjustment of the mA and/or kV according to patient size and/or use of iterati ve reconstruction technique.. FINDINGS: BRAIN: Parenchyma: No acute hemorrhage, large territorial infarction, or mass effect. Ventricles and extra-axial spaces: Appropriate for age. Visualized paranasal sinuses: Mild scattered polypoid mucosal thickening. Mastoid air cells: Clear. Bones: No acute focal abnormality. Additional comment: None. CERVICAL SPINE: Alignment: There is loss of the normal lordosis, which may be related to patient positioning or muscl e spasm. Vertebrae: Vertebral bodies and posterior elements are intact without acute fracture. No significant degenerative change. Extra-vertebral soft tissues: Normal. Additional comment: Unchanged diffuse enlarged thyroid gland, without discrete nodule. IMPRESSION: 1. No acute intracranial abnormality. 2. No acute fracture or subluxation of the cervical spine. 3. Unchanged diffuse enlarged thyroid gland, without discrete nodule. Correlate with thyroid functi on tests. Consider thyroid ultrasound per clinical guidance. Electronically signed by: Daphne Gonzalez MD 06/04/2022 1:52 AM CDT Due to temporary technical issues with the PACS/Fluency reporting system, reports are being signed by the in house radiologists without review as a courtesy to insure prompt reporting. The interpreting radiologist is fully responsible for the content of the report.
--- NOTE | 2022-06-04 13:16 | RAD REPORT ---
EXAM DESCRIPTION: RAD - Chest Single View - 06/04/2022 12:28 am CLINICAL HISTORY: 2 years Female, CONGESTION COMPARISON: Chest radiograph dated 05/01/2022 FINDINGS: No focal lung consolidation. No pleural effusion. No pneumothorax. Cardiomediastinal silhouette is within normal limits. No acute osseous abnormality. IMPRESSION: No acute cardiopulmonary disease. Electronically signed by: Eric Murphy DO 06/04/2022 12:53 AM CDT Due to temporary technical issues with the PACS/Fluency reporting system, reports are being signed by the in house radiologists without review as a courtesy to insure prompt reporting. The interpreting radiologist is fully responsible for the content of the report.
--- NOTE | 2022-06-04 13:44 | EKG ---
Test Date: 2022-06-04 Test Time: 00:50:54 Prorate Clerk: MEASUREMENT RESULTS: Intervals: Rate: 65 PA: 152 QRSD: 80 QT: 400 QTc: 416 [place]: P: 28 PA: 152 QRS: 56 T: 0 INTERPRETIVE STATEMENTS: Normal sinus rhythm with sinus arrhythmia T wave abnormality, consider anterior ischemia Abnormal ECG Compared to ECG 05/01/2022 23:50:13 No significant changes Electronically Signed On 06-04-22 13:43:01 CDT by Renato Cook
== END 2022-06-04 04:57 | disposition home or self-care (01) ==
LOC: ER 22:54
DX: D17.0 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, face and neck (principal); R20.2 Paresthesia of skin; S05.01XA Injury of conjunctiva and corneal abrasion without foreign body, right eye, initial encounter; E03.9 Hypothyroidism, unspecified; J45.909 Unspecified asthma, uncomplicated; Z20.822 Contact with and (suspected) exposure to COVID-19; Z88.1 Allergy status to other antibiotic agents; Z88.8 Allergy status to other drugs, medicaments and biological substances
CPT/HCPCS: 93005; 87088; 85025; 87086; 80048; 36415; 83735; 81025; 84100; 85610; 80076; 84484; 83880; 70450; 72125; 71045; 87811; J7030; J2405; 81003; 81015; 96361; 96374; 96375; 99284

== ENCOUNTER 2022-07-11 20:11 | Emergency (ER) | payer BC ==
[2022-07-11] MEDS ORDERED: CYCLOBENZAPRINE 10 MG TAB ONE (20:57)
[2022-07-11] MEDS ORDERED: METHYLPREDNISOLONE 125 MG INJ ONE (20:57)
[2022-07-11] MEDS ORDERED: HYDROCODONE/APAP 5/325 MG TAB ONE (20:58)
--- NOTE | 2022-07-11 21:46 | EDPHYS ---
Physician Documentation [facility] Name: Adelaide Trinidad Age: 22 yrs Sex: Female : 2000 Arrival Date: 07/11/2022 Time: 20:15 Bed 25 Private MD: ED Physician Luis Odell HPI: 07/12 00:27 This 22 yrs old Female presents to ER via Ambulatory with complaints of Pain All Over. kb 00:27 The patient or guardian complains of decreased range of motion, pain, tenderness. The kb symptoms are located on the left posterior aspect of neck. Onset: The symptoms/episode began/occurred 2 month(s) ago, and became worse 3 day(s) ago. Context: The problem was sustained at home, The neck injury/problem resulted from from unknown cause. Associated signs and symptoms: The patient has no apparent associated signs or symptoms, The patient denies any alcohol use. The patient is not apparently intoxicated. No neurological symptoms were experienced by the patient prior to arrival in the emergency department. The pain radiates to the left arm. Modifying factors: The symptoms are alleviated by nothing. the symptoms are aggravated by movement. Severity of symptoms: At their worst the symptoms were moderate, in the emergency department the symptoms are unchanged. The patient has not experienced similar symptoms in the past. The patient has been recently seen at the [facility] Emergency Department, last month, for similar complaints. Patient reports pain and lump in neck that started 2 months ago. Was seen here last month and had a work-up done including head C-spine CT which was normal. States pain got worse about 3 days ago and started radiating down left arm.. 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 - Social history:: Smoking status: Patient denies any tobacco usage or history of. ROS: 07/12 00:26 Constitutional: Negative for fever, chills, and weight loss. kb Neck: Positive for pain with movement, pain at rest, of the left posterior aspect of neck and left lateral aspect of neck. MS/extremity: Positive for pain, of the left arm. All other systems are negative. Exam: 00:26 Constitutional: This is a well developed, well nourished patient who is awake, alert, kb and in no acute distress. Head/Face: Normocephalic, atraumatic. ENT: Moist Mucous membranes Cardiovascular: Regular rate and rhythm with a normal S1 and S2. No gallops, murmurs, or rubs. No pulse deficits. Respiratory: Respirations even and unlabored. No increased work of breathing. Talking in full sentences Skin: Warm, dry with normal turgor. Normal color. MS/ Extremity: Pulses equal, no cyanosis. Neurovascular intact. Full, normal range of motion. Neuro: Awake and alert, GCS 15, oriented to person, place, time, and situation. Moves all extremities. Normal gait. Psych: Awake, alert, with orientation to person, place and time. Behavior, mood, and affect are within normal limits. 00:26 Neck: External neck: tenderness, that is moderate, of the left posterior aspect of neck, C-spine: appears grossly normal. Vital Signs: 07/11 20:40 BP 105 / 80; Pulse 72; Resp 16 S; Temp 98(TE); Pulse Ox 100% on R/A; Weight 86.18 kg bb (R); Height 4 ft. 11 in. (149.86 cm) (R); 20:40 Body Mass Index 38.37 (86.18 kg, 149.86 cm) MDM: 20:35 Patient medically screened. kb 07/12 00:26 Data reviewed: vital signs, nurses notes. Data reviewed: old medical records, CT scan head and c-spine performed last month reviewed. Data interpreted: Pulse oximetry: on room air is 100 %. Interpretation: normal. Counseling: I had a detailed discussion with the patient and/or guardian regarding: the historical points, exam findings, and any diagnostic results supporting the discharge/admit diagnosis, the need for outpatient follow up, a family practitioner, to return to the emergency department if symptoms worsen or persist or if there are any questions or concerns that arise at home. Administered Medications: 07/11 20:57 Drug: Flexeril (cyclobenzaprine) 10 mg Route: PO; bb 20:57 Drug: HYDROcodone-acetaminophen 5 mg-325 mg 1 tabs Route: PO; bb 20:57 Drug: SOLU-Medrol (methylPREDNISolone sodium succinate) 125 mg Route: IM; Site: left bb gluteus; Disposition: 07/12 05:55 Co-signature as Attending Physician, Luis Odell MD I agree with the assessment and kdr plan of care. Disposition Summary: 07/11/22 21:44 Discharge Ordered Location: Home kb Condition: Stable kb Diagnosis - Radiculopathy, cervical region kb Followup: kb - With: Emergency Department - When: As needed - Reason: Worsening of condition Followup: kb - With: Private Physician - When: 2 - 3 days - Reason: Recheck today's complaints, Continuance of care, Re-evaluation by your physician Discharge Instructions: - Discharge Summary Sheet kb - Pinched Nerve kb - Cervical Radiculopathy, [id number] kb Forms: - Medication Reconciliation Form kb - Thank You Letter kb - Antibiotic Education kb - Prescription Opioid Use kb Prescriptions: - Prednisone 20 mg Oral Tablet - take 1 tablet by ORAL route once daily for 5 days; 5 tablet; Refills: 0, kb Product Selection Permitted - Cyclobenzaprine 10 mg Oral Tablet - take 1 tablet by ORAL route every 8 hours As needed; 15 tablet; Refills: 0, kb Product Selection Permitted Signatures: Sahara Lynn, RIBBON WEAVER-C RIBBON WEAVER-Luis Garcia MD MD kdr Ballard, Brenda, RN RN bb
--- NOTE | 2022-07-11 21:46 | ER ---
Nurse's Notes [facility] Name: Adelaide Trinidad Age: 22 yrs Sex: Female : 2000 Arrival Date: 07/11/2022 Time: 20:15 Bed 25 Private MD: Diagnosis: Radiculopathy, cervical region Presentation: 07/11 20:40 Chief complaint: Patient states: she is having left sided neck pain for 2 days bb radiating monique left side of face and left arm. Coronavirus screen: At this time, the client does not indicate any symptoms associated with coronavirus-19. Ebola Screen: No symptoms or risks identified at this time. Initial Sepsis Screen: Does the patient meet any 2 criteria? No. Patient's initial sepsis screen is negative. Does the patient have a suspected source of infection? No. Patient's initial sepsis screen is negative. Risk Assessment: Do you want to hurt yourself or someone else? Patient reports no desire to harm self or others. Onset of symptoms was July 09, 2022. 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 - Social history:: Smoking status: Patient denies any tobacco usage or history of. Screenin:40 Abuse screen: Denies threats or abuse. Nutritional screening: No deficits noted. bb Tuberculosis screening: No symptoms or risk factors identified. Fall Risk None identified. Assessment: 20:40 General: Appears in no apparent distress. uncomfortable, Behavior is calm, appropriate bb for age. Pain: Complains of pain in neck. Neuro: Level of Consciousness is awake, alert, obeys commands, Oriented to person, place, time, situation. Cardiovascular: Capillary refill < 3 seconds Patient's skin is warm and dry. Respiratory: Respiratory effort is even, unlabored, Respiratory pattern is regular. GI: No signs and/or symptoms were reported involving the gastrointestinal system. Derm: Skin is pink, warm \T\ dry. Musculoskeletal: Circulation, motion, and sensation intact. Reports pain in neck. Vital Signs: 20:40 BP 105 / 80; Pulse 72; Resp 16 S; Temp 98(TE); Pulse Ox 100% on R/A; Weight 86.18 kg bb (R); Height 4 ft. 11 in. (149.86 cm) (R); 20:40 Body Mass Index 38.37 (86.18 kg, 149.86 cm) bb ED Course: 20:15 Patient arrived in ED. ja2 20:15 Sahara Lynn FNP-C is [facility]. kb 20:15 Luis Odell MD is Attending Physician. kb 20:40 Patient has correct armband on for positive identification. bb 20:40 No provider procedures requiring assistance completed. Patient did not have IV access bb during this emergency room visit. 21:00 Triage completed. bb 21:00 Arm band placed on Patient placed in waiting room, Patient notified of wait time. bb Administered Medications: 20:57 Drug: Flexeril (cyclobenzaprine) 10 mg Route: PO; bb 20:57 Drug: HYDROcodone-acetaminophen 5 mg-325 mg 1 tabs Route: PO; bb 20:57 Drug: SOLU-Medrol (methylPREDNISolone sodium succinate) 125 mg Route: IM; Site: left bb gluteus; Medication: 20:40 VIS not applicable for this client. bb Outcome: 21:44 Discharge ordered by MD. kb 21:48 Discharged to home ambulatory, with family. ll3 21:48 Condition: stable 21:48 Discharge instructions given to patient, family, Instructed on discharge instructions, follow up and referral plans. medication usage, Demonstrated understanding of instructions, follow-up care, medications, Prescriptions given X 2. 21:48 Patient left the ED. ll3 Signatures: Sahara Lynn FNP-C FNP-Ckb Ballard, Brenda RN RN Baylee Chris Lynsea, RN RN ll3
[2022-07-12 19:26] VITALS: BP 105/80; TEMP 98; O2SAT 100
== END 2022-07-11 21:48 | disposition home or self-care (01) ==
LOC: ER 20:11
DX: M54.12 Radiculopathy, cervical region (principal); Z88.1 Allergy status to other antibiotic agents; Z88.8 Allergy status to other drugs, medicaments and biological substances
CPT/HCPCS: 96372; 99283; J2930

== ENCOUNTER 2022-08-17 02:50 | Emergency (ER) | payer BC ==
[2022-08-17] MEDS ORDERED: LORAZEPAM 1 MG TABLET ONE (03:44)
[2022-08-17] MEDS ORDERED: KETOROLAC 30 MG/ML INJ ONE (03:50)
--- NOTE | 2022-08-17 04:48 | EDPHYS ---
Physician Documentation [facility] Name: Adelaide Trinidad Age: 22 yrs Sex: Female : 2000 Arrival Date: 08/17/2022 Time: 02:53 Bed 18 Private MD: ED Physician Anamika Zavaleta HPI: 08/17 03:41 This 22 yrs old Female presents to ER via Ambulatory with complaints of Chest Pain. sd2 03:41 22-year-old female presents with chief complaint of left-sided sharp chest pain that sd2 started overnight. She does endorse some mild shortness of breath and nausea with it without vomiting or diaphoresis. She has no known prior cardiac history and no family history of early cardiac . She denies any fevers, cough or recent illness. She has no other acute complaints at this time. She denies ever having a stress test for her heart being seen by cardiology.. 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 - Social history:: Smoking status: Patient denies any tobacco usage or history of. ROS: 03:41 Constitutional: Negative for fever, chills, and weight loss, Eyes: Negative for injury, sd2 pain, redness, and discharge. 03:41 MS/Extremity: Negative for injury and deformity, Skin: Negative for injury, rash, and discoloration, Neuro: Negative for headache, numbness and tingling. 03:41 Cardiovascular: Positive for chest pain, palpitations, Negative for orthopnea. Exam: 03:41 Constitutional: This is a well developed, well nourished patient who is awake, alert, sd2 and in no acute distress. Head/Face: Normocephalic, atraumatic. Eyes: EOMI, normal conjunctiva bilaterally Chest/axilla: Normal chest wall appearance and motion. Nontender with no deformity. Cardiovascular: Regular rate and rhythm with a normal S1 and S2. No gallops, murmurs, or rubs. 2+ distal pulses. Respiratory: Lungs have equal breath sounds bilaterally, clear to auscultation and percussion. No rales, rhonchi or wheezes noted. No increased work of breathing, no retractions or nasal flaring. Abdomen/GI: Soft, non-tender, with normal bowel sounds. No guarding or rebound. No evidence of tenderness throughout. Skin: Warm, dry with normal turgor. Normal color with no rashes, no lesions, and no evidence of cellulitis. MS/ Extremity: Pulses equal, no cyanosis. Neurovascular intact. Full, normal range of motion. Ambulatory without difficulty. Psych: Awake, alert, with orientation to person, place and time. Behavior, mood, and affect are within normal limits. 03:41 ECG was reviewed by the Attending Physician. Sinus tachycardia, rate 101, no STEMI sd2 criteria Vital Signs: 03:37 BP 134 / 82; Pulse 93; Resp 18; Temp 97.8(O); Pulse Ox 100% on R/A; Weight 86.18 kg; vc1 Height 4 ft. 11 in. (149.86 cm); Pain 8/10; 04:40 BP 102 / 49; Pulse 80; Resp 16; Pulse Ox 99% on R/A; kl 03:37 Body Mass Index 38.37 (86.18 kg, 149.86 cm) vc1 MDM: 03:39 Patient medically screened. sd2 03:41 Differential diagnosis: Differential diagnosis includes but is not limited to: ACS, sd2 DVT/PE, pneumothorax, dissection, musculoskeletal, anxiety, anemia, electrolyte abnormality, pneumonia, CHF, COPD among others. Data reviewed: vital signs, nurses notes. 04:44 Data reviewed: EKG, radiologic studies. Counseling: I had a detailed discussion with sd2 the patient and/or guardian regarding: the historical points, exam findings, and any diagnostic results supporting the discharge/admit diagnosis, radiology results, the need for outpatient follow up, to return to the emergency department if symptoms worsen or persist or if there are any questions or concerns that arise at home. Medical screen evaluation completed. EMTALA emergency medical condition absent. ED course: Imaging reviewed. CXR with no acute process. EKG with no acute ischemic changes. No events noted on monitor throughout patient's stay. Pt sleeping comfortably at time of my repeat exam after treatment. Reports pain has dulled significantly but is still present. I did offer the patient Tylenol or a lidocaine patch which she declined at this time. Pain was reproducible on exam with palpation. Pt is young and overall fairly healthy with no significant risk factors. Doubt PE at this time as Wells criteria is low risk. Pt advised of results. No indication for further emergent workup at this time. Advised continued supportive care for symptoms and need for follow up outpatient with PCP. Verbalizes understanding of discharge plan and strict return precautions.. 04:48 The patient's pulmonary embolism risk score was calculated as follows: the patients sd2 heart rate is greater than 100 beats per minute (1.5 Pts) Total Score: 0-2 points. This patient was found to be at low risk for a pulmonary embolism by using the Well's assessment criteria. 08/17 03:29 Order name: XRAY Chest (1 view) sd2 08/17 03:29 Order name: EKG - Nurse/Tech; Complete Time: 03:37 sd2 Administered Medications: 03:45 Drug: Ativan (LORazepam) 1 mg Route: PO; kl 04:12 Follow up: Response: No adverse reaction; Marked relief of symptoms kl 03:53 Drug: Ketorolac 60 mg Route: IM; Site: right vastus lateralis; kl 04:12 Follow up: Response: No adverse reaction; Marked relief of symptoms kl Disposition Summary: 08/17/22 04:47 Discharge Ordered Location: Home sd2 Problem: new sd2 Symptoms: have improved sd2 Condition: Stable sd2 Diagnosis - Chest pain, unspecified sd2 Followup: sd2 - With: Private Physician - When: 2 - 3 days - Reason: Recheck today's complaints, Continuance of care, Re-evaluation by your physician Discharge Instructions: - Discharge Summary Sheet sd2 - Nonspecific Chest Pain, Adult sd2 - Chest Wall Pain sd2 Forms: - Medication Reconciliation Form sd2 - Thank You Letter sd2 - Antibiotic Education sd2 - Prescription Opioid Use sd2 Signatures: Dispatcher [employer] Rina Cotter RN RN kl Calcote, Vanessa, RN RN vc1 Anamika Zavaleta MD MD sd2 Corrections: (The following items were deleted from the chart) 04:49 04:44 ED course: Imaging reviewed. CXR with no acute process. EKG with no acute sd2 ischemic changes. No events noted on monitor throughout patient's stay. Pt sleeping comfortably at time of my repeat exam after treatment. Reports pain has dulled significantly but is still present. I did offer the patient Tylenol or a lidocaine patch which she declined at this time. Pain was reproducible on exam with palpation. Pt is young and overall fairly healthy with no significant risk factors. Pt advised of results. No indication for further emergent workup at this time. Advised continued supportive care for symptoms and need for follow up outpatient with PCP. Verbalizes understanding of discharge plan and strict return precautions.. sd2
--- NOTE | 2022-08-17 04:48 | ER ---
Nurse's Notes [facility] Name: Adelaide Trinidad Age: 22 yrs Sex: Female : 2000 Arrival Date: 08/17/2022 Time: 02:53 Bed 18 Private MD: Diagnosis: Chest pain, unspecified Presentation: 08/17 03:37 Chief complaint: Patient states: "Around midnight to twelve thirty I woke up with sharp vc1 chest pain that moves to my left shoulder. I took some Ibuprofen hoping it would go away but it hasn't.". Coronavirus screen: Vaccine status: Patient reports being unvaccinated. At this time, the client does not indicate any symptoms associated with coronavirus-19. Ebola Screen: No symptoms or risks identified at this time. Initial Sepsis Screen: Does the patient meet any 2 criteria? HR > 90 bpm. No. Patient's initial sepsis screen is negative. Does the patient have a suspected source of infection? No. Patient's initial sepsis screen is negative. Risk Assessment: Do you want to hurt yourself or someone else? Patient reports no desire to harm self or others. Onset of symptoms was August 17, 2022 at 00:00. 03:37 Method Of Arrival: Ambulatory vc1 03:37 Acuity: LUIZ 3 vc1 Triage Assessment: 03:40 General: Appears in no apparent distress. uncomfortable, Behavior is calm, cooperative, vc1 appropriate for age. Pain: Complains of pain in anterior aspect of left upper chest Pain radiates to left clavicle and anterior aspect of left shoulder Pain currently is 8 out of 10 on a pain scale. Quality of pain is described as sharp, Pain began suddenly, 3 hours ago. Alleviated by nothing. EENT: No deficits noted. Neuro: Level of Consciousness is awake, alert, obeys commands, Oriented to person, place, time, situation, Appropriate for age. Cardiovascular: Capillary refill < 3 seconds Patient's skin is warm and dry. Cardiovascular: Reports chest pain, Chest pain is described as severe, quality is sharp, is located in left anterior chest wall radiates to left arm(s). Respiratory: Airway is patent Respiratory effort is even, unlabored, Respiratory pattern is regular, symmetrical. GI: No deficits noted. : No deficits noted. Derm: No deficits noted. Musculoskeletal: No deficits noted. 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 - Social history:: Smoking status: Patient denies any tobacco usage or history of. Screenin:40 Abuse screen: Denies threats or abuse. Nutritional screening: No deficits noted. vc1 Tuberculosis screening: No symptoms or risk factors identified. Fall Risk None identified. Assessment: 03:45 General: Appears in no apparent distress. comfortable. Pain: Complains of pain in kl anterior aspect of left shoulder and left clavicle and chest Pain currently is 6 out of 10 on a pain scale. Aggravated by increased activity. Neuro: No deficits noted. Cardiovascular: No deficits noted. Rhythm is sinus rhythm. Respiratory: No deficits noted. Airway is patent Trachea midline Respiratory effort is even, unlabored, Respiratory pattern is regular, symmetrical, Breath sounds are clear bilaterally. GI: No deficits noted. No signs and/or symptoms were reported involving the gastrointestinal system. : No deficits noted. No signs and/or symptoms were reported regarding the genitourinary system. 04:53 Reassessment: Patient appears in no apparent distress at this time. Patient states kl feeling better. Patient states symptoms have improved. Vital Signs: 03:37 BP 134 / 82; Pulse 93; Resp 18; Temp 97.8(O); Pulse Ox 100% on R/A; Weight 86.18 kg; vc1 Height 4 ft. 11 in. (149.86 cm); Pain 8/10; 04:40 BP 102 / 49; Pulse 80; Resp 16; Pulse Ox 99% on R/A; kl 03:37 Body Mass Index 38.37 (86.18 kg, 149.86 cm) vc1 ED Course: 02:53 Patient arrived in ED. bp1 02:56 Anamika Zavaleta MD is Attending Physician. sd2 03:39 Triage completed. vc1 03:42 Arm band placed on right wrist. vc1 03:43 Patient has correct armband on for positive identification. Placed in gown. Bed in low vc1 position. Call light in reach. Client placed on continuous cardiac and pulse oximetry monitoring. NIBP monitoring applied. 03:44 Patient maintains SpO2 saturation greater than 95% on room air. vc1 03:45 XRAY Chest (1 view) In Process Unspecified. EDMS 04:30 No apparent distress. Appears to be sleeping. kl 04:54 No provider procedures requiring assistance completed. Patient did not have IV access kl during this emergency room visit. Administered Medications: 03:45 Drug: Ativan (LORazepam) 1 mg Route: PO; kl 04:12 Follow up: Response: No adverse reaction; Marked relief of symptoms kl 03:53 Drug: Ketorolac 60 mg Route: IM; Site: right vastus lateralis; kl 04:12 Follow up: Response: No adverse reaction; Marked relief of symptoms kl Medication: 03:44 VIS not applicable for this client. vc1 Outcome: 04:47 Discharge ordered by . sd2 04:53 Discharged to home ambulatory. kl 04:53 Condition: improved 04:53 Discharge instructions given to patient, Instructed on discharge instructions, follow up and referral plans. Demonstrated understanding of instructions, follow-up care. 04:54 Patient left the ED. kl Signatures: Dispatcher [employer] Rina Cotter RN RN kl [place]ia[place], Brittany bp1 Calcote, Vanessa, RN RN vc1 Anamika Zavaleta MD MD sd2
[2022-08-17 05:00] VITALS: TEMP 97.8
[2022-08-17 05:01] VITALS: BP 102/49; O2SAT 99
--- NOTE | 2022-08-17 12:00 | RAD REPORT ---
EXAM DESCRIPTION: XR Chest, 1 View CLINICAL HISTORY: The patient is 22 years old and is Female; CHEST PAIN TECHNIQUE: Frontal view of the chest. COMPARISON: No relevant prior studies available. FINDINGS: Lungs: Unremarkable. No consolidation. Pleural space: Unremarkable. No pneumothorax. Heart: Unremarkable. Mediastinum: Unremarkable. Bones/joints: Unremarkable. IMPRESSION: No acute findings in the chest. Electronically signed by: Shun Abarca MD 08/17/2022 4:02 AM CDT Due to temporary technical issues with the PACS/Fluency reporting system, reports are being signed by the in house radiologists without review as a courtesy to insure prompt reporting. The interpreting radiologist is fully responsible for the content of the report.
--- NOTE | 2022-08-18 16:55 | EKG ---
Test Date: 2022-08-17 Test Time: 03:37:44 Metal Tank Erector: SAUL MEASUREMENT RESULTS: Intervals: Rate: 101 CA: 148 QRSD: 70 QT: 336 QTc: 435 Sarles: P: 58 CA: 148 QRS: 91 T: 33 INTERPRETIVE STATEMENTS: Sinus tachycardia Rightward axis Nonspecific T wave abnormality Abnormal ECG Compared to ECG 06/04/2022 00:50:54 Right-axis deviation now present Sinus rhythm no longer present Sinus arrhythmia no longer present Possible ischemia no longer present T-wave abnormality still present Electronically Signed On 08-18-22 16:53:37 CDT by Renato Cook
== END 2022-08-17 04:54 | disposition home or self-care (01) ==
LOC: ER 02:50
DX: R07.9 Chest pain, unspecified (principal); Z88.1 Allergy status to other antibiotic agents; Z88.3 Allergy status to other anti-infective agents; E03.9 Hypothyroidism, unspecified; J45.909 Unspecified asthma, uncomplicated; F41.9 Anxiety disorder, unspecified
CPT/HCPCS: 71045; 93005; 96372; 99284

== ENCOUNTER 2022-08-19 23:52 | Emergency (ER) | payer BC ==
[2022-08-20] MEDS ORDERED: IPRATROPIUM BROM 0.5MG/2.5ML ONE (00:23)
[2022-08-20] MEDS ORDERED: ALBUTEROL 2.5 MG/3 ML NEB SOL ONE (00:23)
[2022-08-20 02:00] LABS: Urine Blood Negative (Negative); Urine Glucose Negative (Negative); Urine Protein Negative (Negative)
[2022-08-20 02:13] LABS: Absolute Lymphocytes (CBC) 1.6 K/uL (0.7-4.9); Hematocrit 34.9 % (36.0-45.0); Lymphocytes % 23.2 % (15.3-44.8); MCV 88.6 fL (80-100); MPV 8.9 fL (7.6-11.3); RBC Red Blood Cell Count 3.94 M/uL (3.86-4.86)
[2022-08-20 02:23] LABS: Albumin 3.5 g/dL (3.4-5.0); Bilirubin Total 0.2 mg/dL (0.2-1.0); Protein, Total 6.9 g/dL (6.4-8.2)
[2022-08-20 02:24] LABS: Potassium 2.7 mmol/L (3.5-5.1)
--- NOTE | 2022-08-20 02:39 | EDPHYS ---
Physician Documentation [facility] Name: Adelaide Trinidad Age: 22 yrs Sex: Female : 2000 Arrival Date: 08/19/2022 Time: 23:54 Bed 3 Private MD: MYLES Physician Juan A Louie HPI: 08/20 00:15 This 22 yrs old Female presents to ER via Ambulatory with complaints of Asthma cp Exacerbation, Shortness Of Breath. 00:15 The patient has shortness of breath with light activity. cp 00:15 Onset: The symptoms/episode began/occurred yesterday. Duration: The symptoms are cp continuous. Associated signs and symptoms: Pertinent positives: non-productive cough, fever. 00:18 The patient complains of pain in the left flank pain. cp 00:18 The pain radiates to the left side of abdomen. Associated signs and symptoms: Pertinent cp positives: urinary frequency, Pertinent negatives: diarrhea, hematuria, pain radiating to the lower extremities, vomiting. Historical: - Allergies: 08/19 23:57 Bactrim; hb 23:57 Zithromax; hb 23:57 Zosyn; hb - PMHx: 23:57 Anxiety; Asthma; Depression; HYPOGLYCEMIA; Hypothyroidism; scoliosis; hb - PSHx: 23:57 right hip repair; Appendectomy; hb - Immunization history:: Client reports receiving the 2nd dose of the Covid vaccine. - Social history:: Smoking status: Patient denies any tobacco usage or history of. ROS: 08/20 00:20 Constitutional: Negative for fever, poor PO intake. cp 00:20 Eyes: Negative for injury, pain, redness, and discharge. cp 00:20 ENT: Negative for drainage from ear(s), ear pain, difficulty swallowing, difficulty handling secretions. 00:20 Respiratory: Positive for cough, shortness of breath, wheezing. 00:20 Abdomen/GI: Negative for vomiting, diarrhea, constipation. 00:20 Back: Positive for flank pain, on the left. 00:20 : Positive for urinary frequency. 00:20 Neuro: Negative for altered mental status, headache, weakness. 00:20 All other systems are negative. Exam: 08/19 00:25 Constitutional: The patient appears in no acute distress, alert, awake, cp non-diaphoretic, non-toxic, well developed, well nourished. 00:25 Head/Face: Normocephalic, atraumatic. cp 00:25 Eyes: Periorbital structures: appear normal, Conjunctiva: normal, no exudate, no injection, Sclera: no appreciated abnormality, Lids and lashes: appear normal, bilaterally. 00:25 ENT: External ear(s): are unremarkable, Nose: is normal, Mouth: Lips: moist, Oral mucosa: pink and intact, moist, Posterior pharynx: Airway: no evidence of obstruction, patent. 00:25 Neck: ROM/movement: is normal, is supple, without pain, no range of motions limitations. 00:25 Chest/axilla: Inspection: normal. 00:25 Cardiovascular: Rate: normal, Rhythm: regular, Edema: is not appreciated, JVD: is not appreciated. 00:25 Respiratory: the patient does not display signs of respiratory distress, Respirations: normal, no use of accessory muscles, no retractions, labored breathing, is not present, Breath sounds: decreased breath sounds, are not appreciated, stridor, is not appreciated, wheezing: that is mild, is heard diffusely. 00:25 Abdomen/GI: Inspection: abdomen appears normal, Bowel sounds: active, all quadrants, Palpation: soft, in all quadrants. 00:25 Back: pain, that is mild, of the left flank, ROM is normal. 00:25 Skin: cellulitis, is not appreciated, no rash present. 00:25 Neuro: Orientation: to person, place \\T\\ time. Mentation: is normal, Motor: moves all fours, strength is normal, Sensation: is normal. Vital Signs: 23:55 BP 142 / 89; Pulse 91; Resp 18; Temp 98.3; Pulse Ox 100% ; Weight 86.18 kg; Height 4 hb ft. 11 in. (149.86 cm); Pain 8/10; 10/24 02:00 BP 138 / 86; Pulse 92; Resp 16 S; Pulse Ox 100% on R/A; aa9 03:30 BP 136 / 87; Pulse 99; Resp 16 S; Pulse Ox 100% on R/A; aa9 04:00 BP 120 / 63; Pulse 91; Resp 17 S; Pulse Ox 96% on R/A; as6 04:39 BP 96 / 54; Pulse 106; Resp 20 S; Pulse Ox 100% on R/A; as6 04:45 BP 105 / 66; Pulse 97; Resp 16 S; Pulse Ox 100% on R/A; as6 05:46 BP 101 / 63; Pulse 88; Resp 21 S; Pulse Ox 96% on R/A; as6 08/19 23:55 Body Mass Index 38.37 (86.18 kg, 149.86 cm) hb MDM: 00:06 Patient medically screened. cp 02:39 Data reviewed: vital signs, nurses notes, lab test result(s), radiologic studies, plain cp films. 02:39 Differential diagnosis: pyelonephritis, UTI, pneumonia, Pneumothorax. Antibiotic cp administration: The patient is discharged and will get outpatient antibiotics. Test interpretation: by ED physician or midlevel provider: plain radiologic studies. Counseling: I had a detailed discussion with the patient and/or guardian regarding: the historical points, exam findings, and any diagnostic results supporting the discharge/admit diagnosis, lab results, radiology results. 08/20 00:21 Order name: Urine Culture cp 08/20 00:21 Order name: CBC with Diff; Complete Time: 02:24 cp 08/20 02:28 Interpretation: Normal except: HGB 11.6; HCT 34.9. cp 08/20 00:21 Order name: CMP; Complete Time: 02:27 cp 08/20 02:27 Interpretation: Normal except: K 2.7; GLUC 133; GFR 84; A/G 1.0; AST 14. cp 08/20 00:21 Order name: Lipase; Complete Time: 02:27 cp 08/20 00:21 Order name: COVID-19 SARS RT PCR (Document "Date of Onset" if Symptomatic) cp 08/20 00:21 Order name: Influenza Screen (a \\T\\ B) cp 08/20 00:21 Order name: XRAY Chest (1 view) cp 08/20 00:21 Order name: Strep cp 08/20 00:47 Order name: CT Stone Protocol cp 08/20 02:00 Order name: Urine Dipstick-Ancillary; Complete Time: 02:15 EDMS 08/20 02:15 Interpretation: Abnormal: UESTR 2+. cp 08/20 02:00 Order name: Urine --Ancillary (enter results); Complete Time: 02:24 08/20 02:46 Order name: Throat Culture EDMS 08/20 00:21 Order name: Urine Dipstick-Ancillary (obtain specimen); Complete Time: 04:42 cp 08/20 00:21 Order name: Urine Test (obtain specimen); Complete Time: 04:42 cp 08/20 00:21 Order name: IV Saline Lock; Complete Time: 01:54 cp 08/20 00:21 Order name: Labs collected and sent; Complete Time: :54 cp Administered Medications: 00:26 Drug: Albuterol - atroVENT (ipratropium) (3:1) (2.5 mg - 0.5 mg) 3 ml Route: Nebulizer; jb4 04:55 Follow up: Response: No adverse reaction as6 03:27 Drug: Rocephin - (cefTRIAXone) 1 grams Route: IVPB; Infused Over: 30 mins; Site: right aa9 antecubital; 04:54 Follow up: Response: No adverse reaction; IV Status: Completed infusion; IV Intake: [id number] 03:27 Drug: Potassium Effervescent Tablet 50 mEq Route: PO; aa9 04:54 Follow up: Response: No adverse reaction aa9 03:45 Drug: SOLU-Medrol (methylPrednisoLONE) 125 mg Route: IVP; Site: right antecubital; as6 06:17 Follow up: Response: No adverse reaction as6 03:45 Drug: Potassium Chloride 20 mEq Route: IV; Rate: calculated rate; Site: right as6 antecubital; 06:17 Follow up: Response: No adverse reaction; IV Status: Completed infusion; IV Intake: as6 100ml 04:05 Drug: HYDROcodone-acetaminophen 5 mg-325 mg 1 tabs Route: PO; aa9 04:54 Follow up: Response: No adverse reaction aa9 04:54 Drug: Zofran (Ondansetron) 4 mg Route: IVP; Site: right antecubital; aa9 04:55 Follow up: Response: No adverse reaction as6 Disposition: 08/21 04:17 Co-signature as Attending Physician, Juan A Louie MD I agree with the assessment and antionette plan of care. Disposition Summary: 08/20/22 02:39 Discharge Ordered Location: Home cp Problem: new cp Symptoms: have improved cp Condition: Stable cp Diagnosis - UTI/ Urinary tract infection, site not specified cp - Hypokalemia cp - Unspecified asthma with (acute) exacerbation cp Followup: cp - With: Private Physician - When: 2 - 3 days - Reason: Recheck today's complaints Discharge Instructions: - Discharge Summary Sheet cp - Asthma, Adult cp - Potassium Content of Foods cp - Urinary Tract Infection, Adult cp - Hypokalemia cp Forms: - Medication Reconciliation Form cp - Thank You Letter cp - Antibiotic Education cp - Prescription Opioid Use cp Prescriptions: - Potassium Chloride 20 meq Oral Packet - take 1 packet by ORAL route once daily for 3 days 1 packet in 6 (six) ounces of cp water or juice; Take after meal; 3 packet; Refills: 0, Product Selection Permitted - Prednisone 20 mg Oral Tablet - take 2 tablets by ORAL route once daily for 5 days; 10 tablet; Refills: 0, cp Product Selection Permitted - cefpodoxime 200 mg Oral Tablet - take 1 tablet by ORAL route every 12 hours for 10 days with food; 10 tablet; cp Refills: 0, Product Selection Permitted - Albuterol Sulfate 2.5 mg /3 mL (0.083 %) Inhalation Solution for Nebulization - inhale 1 unit by NEBULIZATION route every 8 hours As needed; 1 box; Refills: 0, cp Product Selection Permitted Signatures: Dispatcher [employer] EDJuan A Alexander MD MD cha Page, Corey, PA PA cp Chioma Sosa, RN RN Lauri Garza RN RN jb4 Spencer Duke RN RN as6 Fartun Peralta RN RN aa9
--- NOTE | 2022-08-20 02:39 | ER ---
Nurse's Notes [facility] Name: Adelaide Trinidad Age: 22 yrs Sex: Female : 2000 Arrival Date: 08/19/2022 Time: 23:54 Bed 3 Private MD: Diagnosis: UTI/ Urinary tract infection, site not specified;Hypokalemia;Unspecified asthma with (acute) exacerbation Presentation: 08/19 23:55 Chief complaint: SOB and wheezing since yesterday, not responding to nebulizer or hb inhaler. Also c/o back pain. Coronavirus screen: Client presents with at least one sign or symptom that may indicate coronavirus-19. Provider contacted for isolation considerations. Ebola Screen: No symptoms or risks identified at this time. Initial Sepsis Screen: Does the patient meet any 2 criteria? No. Patient's initial sepsis screen is negative. Does the patient have a suspected source of infection? No. Patient's initial sepsis screen is negative. Risk Assessment: Do you want to hurt yourself or someone else? Patient reports no desire to harm self or others. Onset of symptoms was August 18, 2022. 23:55 Method Of Arrival: Ambulatory hb 23:55 Acuity: LUIZ 3 hb Triage Assessment: 08/20 01:55 General: Appears in no apparent distress. comfortable, Behavior is calm, cooperative. aa9 Pain: Complains of pain in low back area. EENT: No deficits noted. Neuro: Level of Consciousness is awake, alert, obeys commands, Oriented to person, place, time, situation. Cardiovascular: Patient's skin is warm and dry. Respiratory: Airway is patent Respiratory effort is even, unlabored. GI: Patient currently denies diarrhea, nausea, vomiting. : No signs and/or symptoms were reported regarding the genitourinary system. Historical: - Allergies: 08/19 23:57 Bactrim; hb 23:57 Zithromax; hb 23:57 Zosyn; hb - PMHx: 23:57 Anxiety; Asthma; Depression; HYPOGLYCEMIA; Hypothyroidism; scoliosis; hb - PSHx: 23:57 right hip repair; Appendectomy; hb - Immunization history:: Client reports receiving the 2nd dose of the Covid vaccine. - Social history:: Smoking status: Patient denies any tobacco usage or history of. Screenin/24 01:54 Abuse screen: Denies threats or abuse. Denies injuries from another. Nutritional aa9 screening: No deficits noted. Tuberculosis screening: No symptoms or risk factors identified. Fall Risk None identified. Assessment: 00:00 General: Appears uncomfortable, Behavior is calm, cooperative, appropriate for age, aa9 anxious. Pain: Complains of pain in back, posterior aspect of right lateral abdomen, posterior aspect of left lateral abdomen, right lower quadrant and left lower quadrant Pain currently is 8 out of 10 on a pain scale. Noted to be grimacing. Neuro: Level of Consciousness is awake, alert, obeys commands, Oriented to person, place, time, situation. Cardiovascular: Patient's skin is warm and dry. Respiratory: Airway is patent Respiratory effort is even, unlabored. GI: Abdomen is flat, Bowel sounds present X 4 quads. : No signs and/or symptoms were reported regarding the genitourinary system. EENT: No signs and/or symptoms were reported regarding the EENT system. Derm: No signs and/or symptoms reported regarding the dermatologic system. 03:42 General: Appears uncomfortable, Behavior is calm, cooperative, appropriate for age. aa9 Pain: Complains of pain in low back area and left low back. Neuro: Level of Consciousness is awake, alert, obeys commands, Oriented to person, place, time, situation. Cardiovascular: Patient's skin is warm and dry. Respiratory: Airway is patent Respiratory effort is even, unlabored. Vital Signs: 08/19 23:55 BP 142 / 89; Pulse 91; Resp 18; Temp 98.3; Pulse Ox 100% ; Weight 86.18 kg; Height 4 hb ft. 11 in. (149.86 cm); Pain 8/; 08/20 02:00 BP 138 / 86; Pulse 92; Resp 16 S; Pulse Ox 100% on R/A; aa9 03:30 BP 136 / 87; Pulse 99; Resp 16 S; Pulse Ox 100% on R/A; aa9 04:00 BP 120 / 63; Pulse 91; Resp 17 S; Pulse Ox 96% on R/A; as6 04:39 BP 96 / 54; Pulse 106; Resp 20 S; Pulse Ox 100% on R/A; as6 04:45 BP 105 / 66; Pulse 97; Resp 16 S; Pulse Ox 100% on R/A; as6 05:46 BP 101 / 63; Pulse 88; Resp 21 S; Pulse Ox 96% on R/A; as6 08/19 23:55 Body Mass Index 38.37 (86.18 kg, 149.86 cm) hb ED Course: 08/19 23:54 Patient arrived in ED. hb 23:56 Triage completed. hb 23:57 Arm band placed on. hb 08/20 00:05 Juan A Sánchez PA is PHCP. cp 00:05 Juan A Louie MD is Attending Physician. cp 00:42 XRAY Chest (1 view) In Process Unspecified. EDMS 01:33 Spencer Duke, JAZ is Primary Nurse. as6 01:46 Inserted saline lock: 20 gauge in right antecubital area, using aseptic technique. aa9 Blood collected. 01:53 Strep Sent. aa9 01:53 Influenza Screen (a \\T\\ B) Sent. aa9 01:54 Patient has correct armband on for positive identification. Bed in low position. Call aa9 light in reach. Side rails up X2. 01:54 COVID-19 SARS RT PCR (Document "Date of Onset" if Symptomatic) Sent. aa9 01:54 CBC with Diff Sent. aa9 01:54 CMP Sent. aa9 01:54 Lipase Sent. aa9 02:17 CT Stone Protocol In Process Unspecified. EDMS 02:23 Notified ED physician of a critical lab result(s). Potassium 2.7. tw5 04:56 No provider procedures requiring assistance completed. as6 06:18 IV discontinued, intact, bleeding controlled, No redness/swelling at site. Pressure as6 dressing applied. Administered Medications: 00:26 Drug: Albuterol - atroVENT (ipratropium) (3:1) (2.5 mg - 0.5 mg) 3 ml Route: Nebulizer; jb4 04:55 Follow up: Response: No adverse reaction as6 03:27 Drug: Rocephin - (cefTRIAXone) 1 grams Route: IVPB; Infused Over: 30 mins; Site: right aa9 antecubital; 04:54 Follow up: Response: No adverse reaction; IV Status: Completed infusion; IV Intake: [id number] 03:27 Drug: Potassium Effervescent Tablet 50 mEq Route: PO; aa9 04:54 Follow up: Response: No adverse reaction aa9 03:45 Drug: SOLU-Medrol (methylPrednisoLONE) 125 mg Route: IVP; Site: right antecubital; as6 06:17 Follow up: Response: No adverse reaction as6 03:45 Drug: Potassium Chloride 20 mEq Route: IV; Rate: calculated rate; Site: right as6 antecubital; 06:17 Follow up: Response: No adverse reaction; IV Status: Completed infusion; IV Intake: as6 100ml 04:05 Drug: HYDROcodone-acetaminophen 5 mg-325 mg 1 tabs Route: PO; aa9 04:54 Follow up: Response: No adverse reaction aa9 04:54 Drug: Zofran (Ondansetron) 4 mg Route: IVP; Site: right antecubital; aa9 04:55 Follow up: Response: No adverse reaction as6 Medication: 01:54 VIS not applicable for this client. aa9 Intake: 04:54 IV: 50ml; Total: 50ml. aa9 06:17 IV: 100ml; Total: 150ml. as6 Outcome: 02:39 Discharge ordered by MD. rhett 06:17 Discharged to home ambulatory, with friend. as6 06:17 Condition: stable 06:17 Discharge instructions given to patient, Instructed on discharge instructions, follow up and referral plans. medication usage, Demonstrated understanding of instructions, follow-up care, medications, Prescriptions given X 4. 06:18 Patient left the ED. as6 Signatures: Dispatcher [employer] EDMS Juan A Sánchez PA PA cp Baxter, Heather, RN RN Lauri Okeefe RN RN jb4 Alanna Roland tw5 Spencer Duke RN RN as6 Fartun Peralta RN RN aa9 Corrections: (The following items were deleted from the chart) 03:43 03:39 General: Appears uncomfortable, Behavior is calm, cooperative, appropriate for aa9 age, anxious, aa9 03:43 03:39 Pain: Complains of pain in back, posterior aspect of right lateral abdomen, aa9 posterior aspect of left lateral abdomen, right lower quadrant and left lower quadrant Pain currently is 8 out of 10 on a pain scale. Noted to be grimacing, aa9 03:43 03:39 Neuro: Level of Consciousness is awake, alert, obeys commands, Oriented to aa9 person, place, time, situation, aa9 03:43 03:39 Cardiovascular: Patient's skin is warm and dry. aa9 9 03:39 Respiratory: Airway is patent Respiratory effort is even, unlabored, aa9 9 03:39 GI: Abdomen is flat, Bowel sounds present X 4 quads. aa9 9 03:39 : No signs and/or symptoms were reported regarding the genitourinary system. aa9aa9 03:39 EENT: No signs and/or symptoms were reported regarding the EENT system. aa9 03:39 Derm: No signs and/or symptoms reported regarding the dermatologic system. aa9 aa9
[2022-08-20] MEDS ORDERED: CEFTRIAXONE 1000 MG/VIAL ONE (03:16)
[2022-08-20] MEDS ORDERED: METHYLPREDNISOLONE 125 MG INJ ONE (03:16)
[2022-08-20] MEDS ORDERED: POTASSIUM 25 MEQ EFFERV TAB ONE (03:16)
[2022-08-20] MEDS ORDERED: KCL 20 MEQ/100 mL IVPB 100 ML IV ONE (03:17)
[2022-08-20] MEDS ORDERED: NA CHLORIDE 0.9% 100 ML IV ONE ×2 (03:17→04:33)
[2022-08-20] MEDS ORDERED: HYDROCODONE/APAP 10/325 TAB ONE (04:00)
[2022-08-20] MEDS ORDERED: ONDANSETRON 4 MG/2 ML VIAL ONE (04:11)
[2022-08-20 06:36] VITALS: TEMP 98.3
[2022-08-20 06:47] VITALS: BP 101/63; O2SAT 96
--- NOTE | 2022-08-21 09:03 | RAD REPORT ---
EXAM DESCRIPTION: XR Chest 1 View AP CLINICAL HISTORY: Shortness of Breath COMPARISON: Chest 1 View AP 08/17/2022 CTA Chest With Contrast 05/02/2022 TECHNIQUE: Chest 1 View AP FINDINGS: Moderate decreased inspiration (decreased lung volumes) makes evaluation more difficult. Trachea midline. Heart size and pulmonary vessels within normal limits. Lungs clear without evidence of consolidation, mass, or significant pulmonary edema. Mild symmetric bilateral lower lungs/chest density most likely represents overlying breast/chest wall attenuation artifact. No significant pleural effusion or pneumothorax. Bones unremarkable. IMPRESSION: Unremarkable chest radiograph. Electronically signed by: Aroldo Birmingham MD 08/20/2022 12:59 AM CDT Due to temporary technical issues with the PACS/Fluency reporting system, reports are being signed by the in house radiologists without review as a courtesy to insure prompt reporting. The interpreting radiologist is fully responsible for the content of the report
--- NOTE | 2022-08-21 09:04 | RAD REPORT ---
EXAM DESCRIPTION: CT Abdomen and Pelvis Without Intravenous Contrast CLINICAL HISTORY: The patient is 22 years old and is Female; left flank pain TECHNIQUE: Axial computed tomography images of the abdomen and pelvis without intravenous contrast. Sagittal and coronal reformatted images were created and reviewed. This CT exam was performed usi ng one or more of the following dose reduction techniques: automated exposure control, adjustment o f the mA and/or kV according to patient size, and/or use of iterative reconstruction technique. COMPARISON: No relevant prior studies available. FINDINGS: Lung bases: Unremarkable. No mass. No consolidation. ABDOMEN: Liver: Diffuse hepatic steatosis. Gallbladder and bile ducts: Gallbladder is surgically absent. No ductal dilation. Pancreas: Unremarkable. No ductal dilation. Spleen: Unremarkable. No splenomegaly. Adrenals: Unremarkable. No mass. Kidneys and ureters: Unremarkable. No obstructing stones. No hydronephrosis. No perinephric i nflammatory changes. Stomach and bowel: Unremarkable. No obstruction. No mucosal thickening. PELVIS: Appendix: Evidence of prior appendectomy. Bladder: Unremarkable. Reproductive: Unremarkable as visualized. ABDOMEN and PELVIS: Intraperitoneal space: Unremarkable. No free air. No significant fluid collection. Bones/joints: No acute fracture. No dislocation. Soft tissues: Unremarkable. Vasculature: Unremarkable. No abdominal aortic aneurysm. Lymph nodes: Unremarkable. No enlarged lymph nodes. IMPRESSION: No acute finding in the abdomen/pelvis. Electronically signed by: Shun Abarca MD 08/20/2022 2:52 AM CDT Due to temporary technical issues with the PACS/Fluency reporting system, reports are being signed by the in house radiologists without review as a courtesy to insure prompt reporting. The interpreting radiologist is fully responsible for the content of the report
== END 2022-08-20 06:18 | disposition home or self-care (01) ==
LOC: ER 23:52
DX: J45.901 Unspecified asthma with (acute) exacerbation (principal); N39.0 Urinary tract infection, site not specified; E87.6 Hypokalemia; Z20.822 Contact with and (suspected) exposure to COVID-19; Z88.1 Allergy status to other antibiotic agents; Z88.8 Allergy status to other drugs, medicaments and biological substances
CPT/HCPCS: 96365; 87070; 87088; 85025; 87086; 36415; 81025; 87081; 81003; 83690; 80053; 87804 ×2; 76377; 74176; 71045; 94640; 96375; 99284; 96366; U0003; J3480; J2930; J2405

== ENCOUNTER 2022-09-11 19:00 | Emergency (ER) | payer BC ==
[2022-09-11 21:28] LABS: Urine Blood Negative (Negative); Urine Glucose Negative (Negative); Urine Protein Negative (Negative); Urine pH 6.5 (5.0-7.0)
[2022-09-11] MEDS ORDERED: KETOROLAC 30 MG/ML INJ ONE (21:49)
[2022-09-11 22:14] LABS: Urine Mucus Slight /HPF (None Seen); Urine RBC <5 /HPF (None Seen)
--- NOTE | 2022-09-11 22:17 | EDPHYS ---
Physician Documentation [facility] Name: Adelaide Trinidad Age: 22 yrs Sex: Female : 2000 Arrival Date: 09/11/2022 Time: 19:06 Bed 20 Private MD: ED Physician Davidson Vallejo HPI: 09/11 22:20 This 22 yrs old Female presents to ER via Wheelchair with complaints of Low Back Pain, snw Flank Pain. 22:20 The patient presents with pain that is acute, with no known mechanism of injury. The snw symptoms are located in the left mid back. The pain does not radiate. The problem was sustained without known cause. Onset: The symptoms/episode began/occurred suddenly, 4 day(s) ago, and became persistent. Associated signs and symptoms: The patient has no apparent associated signs or symptoms. Severity of symptoms: At their worst the symptoms were moderate. The patient has experienced similar episodes in the past. while out of town over the weekend. Historical: - Allergies: 19:26 Bactrim; ld1 19:26 Zithromax; ld1 19:26 Zosyn; ld1 - PMHx: 19:26 Anxiety; Asthma; Depression; HYPOGLYCEMIA; Hypothyroidism; scoliosis; ld1 - PSHx: 19:26 Appendectomy; right hip repair; ld1 - Immunization history:: Adult Immunizations up to date, Client reports receiving the 2nd dose of the Covid vaccine. - Social history:: Smoking status: Patient denies any tobacco usage or history of. Patient/guardian denies using alcohol. ROS: 22:19 Constitutional: Negative for fever, chills, and weight loss, Eyes: Negative for injury, snw pain, redness, and discharge, ENT: Negative for injury, pain, and discharge, Neck: Negative for injury, pain, and swelling, Cardiovascular: Negative for chest pain, palpitations, and edema, Respiratory: Negative for shortness of breath, cough, wheezing, and pleuritic chest pain, Abdomen/GI: Negative for abdominal pain, nausea, vomiting, diarrhea, and constipation. 22:19 : Negative for injury, bleeding, discharge, and swelling, MS/Extremity: Negative for injury and deformity, Skin: Negative for injury, rash, and discoloration, Neuro: Negative for headache, weakness, numbness, tingling, and seizure. 22:19 Back: Positive for flank pain, on the left. Exam: 22:19 Constitutional: This is a well developed, well nourished patient who is awake, alert, snw and in no acute distress. Head/Face: Normocephalic, atraumatic. Eyes: Pupils equal round and reactive to light, extra-ocular motions intact. Lids and lashes normal. Conjunctiva and sclera are non-icteric and not injected. Cornea within normal limits. Periorbital areas with no swelling, redness, or edema. ENT: Nares patent. No nasal discharge, no septal abnormalities noted. Tympanic membranes are normal and external auditory canals are clear. Oropharynx with no redness, swelling, or masses, exudates, or evidence of obstruction, uvula midline. Mucous membranes moist. Neck: Trachea midline, no thyromegaly or masses palpated, and no cervical lymphadenopathy. Supple, full range of motion without nuchal rigidity, or vertebral point tenderness. No Meningismus. Chest/axilla: Normal chest wall appearance and motion. Nontender with no deformity. No lesions are appreciated. Cardiovascular: Regular rate and rhythm with a normal S1 and S2. No gallops, murmurs, or rubs. Normal PMI, no JVD. No pulse deficits. Respiratory: Lungs have equal breath sounds bilaterally, clear to auscultation and percussion. No rales, rhonchi or wheezes noted. No increased work of breathing, no retractions or nasal flaring. Abdomen/GI: Soft, non-tender, with normal bowel sounds. No distension or tympany. No guarding or rebound. No evidence of tenderness throughout. 22:19 Skin: Warm, dry with normal turgor. Normal color with no rashes, no lesions, and no evidence of cellulitis. MS/ Extremity: Pulses equal, no cyanosis. Neurovascular intact. Full, normal range of motion. Neuro: Awake and alert, GCS 15, oriented to person, place, time, and situation. Cranial nerves II-XII grossly intact. Motor strength 5/5 in all extremities. Sensory grossly intact. Cerebellar exam normal. Normal gait. Psych: Awake, alert, with orientation to person, place and time. Behavior, mood, and affect are within normal limits. 22:19 Back: pain, that is moderate, ROM is normal, normal spinal alignment noted, CVA tenderness, that is mild, is noted on the left. Vital Signs: 19:25 BP 114 / 92; Pulse 99; Resp 18; Temp 98.9(TE); Pulse Ox 100% on R/A; Weight 86.18 kg; ld1 Height 5 ft. 1 in. (154.94 cm); Pain 10/10; 20:40 BP 114 / 73; Pulse 95; Resp 18 S; Pulse Ox 100% on R/A; ha1 21:40 BP 108 / 69; Pulse 79; Resp 17 S; Pulse Ox 99% ; ha1 22:39 BP 118 / 97; Pulse 87; Resp 16 S; Pulse Ox 100% on R/A; ha1 19:25 Body Mass Index 35.90 (86.18 kg, 154.94 cm) ld1 MDM: 20:27 Patient medically screened. snw 22:17 Data reviewed: vital signs, nurses notes. Data interpreted: Pulse oximetry: on room air snw is 99 %. Interpretation: normal. Counseling: I had a detailed discussion with the patient and/or guardian regarding: the historical points, exam findings, and any diagnostic results supporting the discharge/admit diagnosis, lab results, the need for outpatient follow up, to return to the emergency department if symptoms worsen or persist or if there are any questions or concerns that arise at home. Response to treatment: the patient's symptoms have mildly improved after treatment. Special discussion: Based on the history and exam findings, there is no indication for further emergent testing or inpatient evaluation. I discussed with the patient/guardian the need to see the primary care provider for further evaluation of the symptoms. 09/11 19:09 Order name: Urine Culture snw 09/11 19:09 Order name: Urine Microscopic Only; Complete Time: 22:16 snw 09/11 19:09 Order name: Urine Dipstick-Ancillary (obtain specimen); Complete Time: 21:40 snw 09/11 21:28 Order name: Urine Dipstick-Ancillary; Complete Time: 21:31 EDMS 09/11 21:41 Order name: Urine --Ancillary (enter results); Complete Time: 21:48 mw2 09/11 19:09 Order name: Urine Test (obtain specimen); Complete Time: 21:40 snw Administered Medications: 21:53 Drug: Ketorolac 30 mg Route: IM; Site: left ventrogluteal; ha1 22:00 Follow up: Response: No adverse reaction ha1 Disposition: 09/12 02:20 Co-signature as Attending Physician, Davidson Vallejo MD I agree with the assessment and rt plan of care. Disposition Summary: 09/11/22 22:17 Discharge Ordered Location: Home snw Condition: Stable snw Diagnosis - Unspecified renal colic snw Followup: snw - With: Emergency Department - When: As needed - Reason: Worsening of condition Followup: snw - With: Private Physician - When: 1 - 2 days - Reason: Recheck today's complaints, Continuance of care, Re-evaluation by your physician Discharge Instructions: - Discharge Summary Sheet snw - Renal Colic snw - Dietary Guidelines to Help Prevent Kidney Stones snw - Rehydration, Adult snw Forms: - Medication Reconciliation Form snw - Thank You Letter snw - Antibiotic Education snw - Prescription Opioid Use snw Prescriptions: - Diclofenac Sodium 75 mg Oral Tablet Sustained Release - take 1 tablet by ORAL route 2 times per day; 30 tablet; Refills: 0, Product snw Selection Permitted Signatures: Dispatcher [employer] EDMS Jen Haney, TRAFFIC CONTROL OFFICER-C TRAFFIC CONTROL OFFICER-Csnw Rafaela Sauer RN RN ld1 Kaley Jennings RN RN ha1 Davidson Vallejo MD MD rt
--- NOTE | 2022-09-11 22:17 | ER ---
Nurse's Notes [facility] Name: Adelaide Trinidad Age: 22 yrs Sex: Female : 2000 Arrival Date: 09/11/2022 Time: 19:06 Bed 20 Private MD: Diagnosis: Unspecified renal colic Presentation: 09/11 19:25 Chief complaint: Patient states: Left sided pain/flank pain X 1 day. Coronavirus ld1 screen: At this time, the client does not indicate any symptoms associated with coronavirus-19. Ebola Screen: No symptoms or risks identified at this time. Initial Sepsis Screen: Does the patient meet any 2 criteria? No. Patient's initial sepsis screen is negative. Does the patient have a suspected source of infection? No. Patient's initial sepsis screen is negative. Risk Assessment: Do you want to hurt yourself or someone else? Patient reports no desire to harm self or others. Onset of symptoms was September 11, 2022. 19:25 Method Of Arrival: Wheelchair ld1 19:25 Acuity: LUIZ 3 ld1 Triage Assessment: 19:26 General: Appears in no apparent distress. comfortable, Behavior is calm, cooperative, ld1 appropriate for age. Pain: Complains of pain in left low back and left lower quadrant Pain does not radiate. Pain currently is 9 out of 10 on a pain scale. Quality of pain is described as sharp, shooting, throbbing, Pain began 1 day ago. Is continuous. EENT: No signs and/or symptoms were reported regarding the EENT system. Neuro: Level of Consciousness is awake, alert, obeys commands, Oriented to person, place, time, situation, Appropriate for age. Cardiovascular: Capillary refill < 3 seconds Patient's skin is warm and dry. Respiratory: Airway is patent Respiratory effort is even, unlabored. GI: Abdomen is round non-distended. : No signs and/or symptoms were reported regarding the genitourinary system. Derm: No signs and/or symptoms reported regarding the dermatologic system. Musculoskeletal: No signs and/or symptoms reported regarding the musculoskeletal system. Historical: - Allergies: 19:26 Bactrim; ld1 19:26 Zithromax; ld1 19:26 Zosyn; ld1 - PMHx: 19:26 Anxiety; Asthma; Depression; HYPOGLYCEMIA; Hypothyroidism; scoliosis; ld1 - PSHx: 19:26 Appendectomy; right hip repair; ld1 - Immunization history:: Adult Immunizations up to date, Client reports receiving the 2nd dose of the Covid vaccine. - Social history:: Smoking status: Patient denies any tobacco usage or history of. Patient/guardian denies using alcohol. Screenin:25 Abuse screen: Denies threats or abuse. Denies injuries from another. Nutritional ha1 screening: No deficits noted. Tuberculosis screening: No symptoms or risk factors identified. Fall Risk None identified. Assessment: 20:40 General: Appears uncomfortable, Behavior is calm, cooperative. Pain: Complains of pain ha1 in left back flank pain. 20:40 Pain: Pain does not radiate. Pain at worst was 10 out of 10 on a pain scale. ha1 20:40 Neuro: Level of Consciousness is awake, alert, obeys commands, Oriented to person, ha1 place, time, situation. Cardiovascular: Patient's skin is warm and dry. Respiratory: Airway is patent Trachea midline Respiratory effort is even, unlabored, labored, Respiratory pattern is regular, symmetrical. : Urine is clear. Derm: Skin is intact, Skin is pink, warm \T\ dry. Musculoskeletal: Circulation, motion, and sensation intact. Capillary refill < 3 seconds, Range of motion: intact in all extremities. 21:40 Reassessment: Patient and/or family updated on plan of care and expected duration. Pain ha1 level reassessed. Patient is alert, oriented x 3, equal unlabored respirations, skin warm/dry/pink. pain 10/10. 22:39 Reassessment: Patient and/or family updated on plan of care and expected duration. Pain ha1 level reassessed. Patient is alert, oriented x 3, equal unlabored respirations, skin warm/dry/pink. Vital Signs: 19:25 BP 114 / 92; Pulse 99; Resp 18; Temp 98.9(TE); Pulse Ox 100% on R/A; Weight 86.18 kg; ld1 Height 5 ft. 1 in. (154.94 cm); Pain 10/10; 20:40 BP 114 / 73; Pulse 95; Resp 18 S; Pulse Ox 100% on R/A; ha1 21:40 BP 108 / 69; Pulse 79; Resp 17 S; Pulse Ox 99% ; ha1 22:39 BP 118 / 97; Pulse 87; Resp 16 S; Pulse Ox 100% on R/A; ha1 19:25 Body Mass Index 35.90 (86.18 kg, 154.94 cm) ld1 ED Course: 19:06 Patient arrived in ED. ja2 19:09 Jen Haney FNP-C is [facility]. snw 19:09 Davidson Vallejo MD is Attending Physician. snw 19:26 Triage completed. ld1 19:26 Arm band placed on right wrist. ld1 20:40 Kaley Jennings, RN is Primary Nurse. ha1 20:40 Patient has correct armband on for positive identification. Bed in low position. Call ha1 light in reach. Side rails up X 1. 22:40 No provider procedures requiring assistance completed. Patient did not have IV access ha1 during this emergency room visit. Administered Medications: 21:53 Drug: Ketorolac 30 mg Route: IM; Site: left ventrogluteal; ha1 22:00 Follow up: Response: No adverse reaction ha1 Medication: 22:40 VIS not applicable for this client. ha1 Outcome: 22:17 Discharge ordered by . snw 22:40 Discharged to home ambulatory. ha1 22:40 Condition: stable 22:40 Discharge instructions given to patient, Instructed on discharge instructions, follow up and referral plans. medication usage, Demonstrated understanding of instructions, follow-up care, medications. 22:40 Patient left the ED. ha1 Signatures: Jen Haney FNP-C NEUROPSYCHOLOGY DIRECTOR-Csnw Rafaela Sauer RN RN 1 Baylee Mejia [facility] Kaley Jennings RN RN ha1
[2022-09-11 22:59] VITALS: TEMP 98.9
[2022-09-11 23:03] VITALS: BP 118/97; O2SAT 100
== END 2022-09-11 22:40 | disposition home or self-care (01) ==
LOC: ER 19:00
DX: N23 Unspecified renal colic (principal); Z88.1 Allergy status to other antibiotic agents; Z88.8 Allergy status to other drugs, medicaments and biological substances
CPT/HCPCS: 81003; 81015; 81025; 87086; 87088; 96372; 99283

== ENCOUNTER 2022-12-17 23:49 | Observation (INO) | payer BC ==
[2022-12-18] MEDS ORDERED: IPRATROPIUM BROM 0.5MG/2.5ML ONE ×3 (00:49→10:36)
[2022-12-18] MEDS ORDERED: METHYLPREDNISOLONE 125 MG INJ ONE (00:49)
[2022-12-18] MEDS ORDERED: ALBUTEROL 2.5 MG/3 ML NEB SOL ONE ×3 (00:49→10:35)
[2022-12-18] MEDS ORDERED: NA CHLORIDE 0.9% 1,000 ML ONE ×3 (00:49→06:23)
[2022-12-18] MEDS ORDERED: Magnesium Sulfate 2gm IVPB 2 G/50 ML BAG IV ONE (00:49)
[2022-12-18 00:58] LABS: Absolute Lymphocytes (CBC) 1.6 K/uL (0.7-4.9); Hematocrit 35.1 % (36.0-45.0); Lymphocytes % 14.5 % (15.3-44.8); MCV 88.6 fL (80-100); MPV 8.5 fL (7.6-11.3); RBC Red Blood Cell Count 3.97 M/uL (3.86-4.86)
[2022-12-18 01:14] LABS: Albumin 3.7 g/dL (3.4-5.0); Bilirubin Total 0.2 mg/dL (0.2-1.0); Potassium 3.3 mmol/L (3.5-5.1); Protein, Total 6.8 g/dL (6.4-8.2); Troponin High Sensitivity 3.8 pg/mL (<58.9)
--- NOTE | 2022-12-18 04:16 | ER ---
Nurse's Notes [facility] Name: Adelaide Blackmon Age: 22 yrs Sex: Female : 2000 Arrival Date: 12/17/2022 Time: 23:50 Bed 3 Private MD: Diagnosis: Unspecified asthma with (acute) exacerbation Presentation: 12/17 23:54 Chief complaint: Patient states: she just finished antibiotics for bronchitis but her as6 symptoms are worsening she is having difficulty breathing. Coronavirus screen: Client presents with at least one sign or symptom that may indicate coronavirus-19. Ebola Screen: No symptoms or risks identified at this time. Initial Sepsis Screen: Does the patient meet any 2 criteria? Yes. Risk Assessment: Do you want to hurt yourself or someone else? Patient reports no desire to harm self or others. Onset of symptoms was December 17, 2022. 23:54 Method Of Arrival: Ambulatory as6 23:54 Acuity: LUIZ 3 as6 12/18 04:42 Initial Sepsis Screen: Does the patient have a suspected source of infection? No. as6 Patient's initial sepsis screen is negative. 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 - Social history:: Smoking status: Patient denies any tobacco usage or history of. - Family history:: not pertinent. Screenin/21 00:12 [facility] ED Fall Risk Assessment (Adult) Score/Fall Risk Level 0 - 2 = Low Risk. Abuse as6 screen: Denies threats or abuse. Denies injuries from another. Nutritional screening: No deficits noted. Tuberculosis screening: No symptoms or risk factors identified. Assessment: 00:11 General: Appears obese, Behavior is calm, cooperative. Pain: Denies pain. Respiratory: as6 Airway is patent Respiratory effort is labored, Breath sounds with wheezes bilaterally. 01:36 Reassessment: Patient and/or family updated on plan of care and expected duration. Pain jb4 level reassessed. PT remains on breathing treatment, respirations remain tachypneic and labored. 03:18 Respiratory: Reports shortness of breath. as6 04:25 Reassessment: Patient appears in no apparent distress at this time. Patient and/or jb4 family updated on plan of care and expected duration. Pain level reassessed. Patient is alert, oriented x 3, equal unlabored respirations, skin warm/dry/pink. 05:08 Reassessment: Patient appears in no apparent distress at this time. Patient and/or jb4 family updated on plan of care and expected duration. Pain level reassessed. Patient is alert, oriented x 3, equal unlabored respirations, skin warm/dry/pink. 05:56 Reassessment: Pt is resting in bed with eyes closed, respirations are even and jb4 unlabored with no s/s of pain or distress noted. Vital Signs: 12/17 23:54 BP 125 / 62; Pulse 128; Resp 26 S; Temp 98.3(O); Pulse Ox 99% ; Weight 86.18 kg (R); as6 Height 4 ft. 11 in. (149.86 cm) (R); 12/18 01:56 BP 99 / 55; Pulse 120; Resp 24; Pulse Ox 100% on R/A; jb4 03:18 BP 101 / 58; Pulse 128; Resp 21 S; Pulse Ox 97% on R/A; as6 04:00 BP 121 / 71; Pulse 123; Resp 20; Pulse Ox 100% on R/A; jb4 04:43 BP 110 / 62; Pulse 128; Resp 19 S; Pulse Ox 98% on R/A; as6 05:08 Pulse 114; Resp 19; Pulse Ox 100% on R/A; jb4 05:56 BP 118 / 57; Pulse 117; Resp 24; Pulse Ox 97% on R/A; jb4 12/17 23:54 Body Mass Index 38.37 (86.18 kg, 149.86 cm) as6 ED Course: 12/17 23:50 Patient arrived in ED. ja2 23:57 Triage completed. as6 23:57 Arm band placed on Patient placed in an exam room, on a stretcher, on pulse oximetry. as6 12/18 00:00 Davidson Vallejo MD is Attending Physician. rt 00:11 Spencer Duke, RN is Primary Nurse. as6 00:11 Placed in gown. Bed in low position. Call light in reach. Side rails up X 1. Client as6 placed on continuous cardiac and pulse oximetry monitoring. NIBP monitoring applied. 00:43 D-Dimer Sent. jb4 00:43 BNP Sent. jb4 00:43 Troponin High Sensitivity Sent. jb4 00:43 CMP Sent. jb4 04:16 Tyson Gonzalez is Hospitalizing Provider. rt 06:00 No provider procedures requiring assistance completed. Patient admitted, IV remains in as6 place. Administered Medications: 01:09 Drug: DuoNeb (albuterol 2.5 mg, ipratropium 0.5 mg) (3:1) (2.5 mg - 0.5 mg) 3 ml Route: jb4 Nebulizer; 06:00 Follow up: Response: No adverse reaction as6 01:09 Drug: SOLU-Medrol (methylPrednisoLONE) 125 mg Route: IVP; Site: right antecubital; jb4 06:00 Follow up: Response: No adverse reaction as6 01:09 Drug: Magnesium Sulfate 2 grams Route: IVPB; Infused Over: 60 mins; Site: right jb4 antecubital; 06:01 Follow up: Response: No adverse reaction; IV Status: Completed infusion; IV Intake: [id number] 01:09 Drug: NS 0.9% 1000 ml Route: IV; Rate: 1 bolus; Site: right antecubital; jb4 06:01 Follow up: Response: No adverse reaction; IV Status: Completed infusion; IV Intake: as6 1000ml 01:56 Drug: DuoNeb (albuterol 2.5 mg, ipratropium 0.5 mg) (3:1) (2.5 mg - 0.5 mg) 3 ml Route: jb4 Nebulizer; 06:01 Follow up: Response: No adverse reaction as6 03:18 Drug: NS 0.9% 1000 ml Route: IV; Rate: 1 bolus; Site: right antecubital; as6 06:01 Follow up: Response: No adverse reaction; IV Status: Completed infusion; IV Intake: as6 1000ml 04:41 Drug: morphine 4 mg Route: IVP; Infused Over: 4 mins; Site: right antecubital; as6 06:02 Follow up: Response: No adverse reaction as6 04:41 Drug: Zofran (Ondansetron) 4 mg Route: IVP; Site: right antecubital; as6 06:02 Follow up: Response: No adverse reaction as6 Medication: 06:00 VIS not applicable for this client. as6 Intake: 06:01 IV: 50ml; Total: 50ml. as6 06:01 IV: 1000ml; Total: 1050ml. as6 06:01 IV: 1000ml; Total: 2050ml. as6 Outcome: 04:16 Decision to Hospitalize by Provider. rt 06:00 Admitted to ER Hold. Please see [facility] for further documentation. as6 06:00 Condition: stable 06:00 Instructed on the need for admit. 13:21 Patient left the ED. ph Signatures: Lainey Guzmán, RN RN ph Lauri Okeefe, RN RN jb4 Baylee Mejia Ashby, RN RN as6 Davidson Vallejo MD MD rt Corrections: (The following items were deleted from the chart) 04:42 04:41 Temp 98.4F Oral; as6 as6
--- NOTE | 2022-12-18 04:16 | P.HP ---
Certification for Inpatient Patient admitted to: Observation With expected LOS: <2 Midnights Patient will require the following post-hospital care: None Practitioner: I am a practitioner with admitting privileges, knowledge of patient current condition, hospital course, and medical plan of care. Services: Services provided to patient in accordance with Admission requirements found in Title 42 Section 412.3 of the Code of Federal Regulations Patient History Date of Service: 12/18/22 Primary Care Provider: Corby Burnett Reason for admission: Asthma Exacerbation History of Present Illness: Patient is a 22 year old female with past medical history of asthma who presented to the emergency department with complaints of shortness of breath and chest tightness. Patient reports that she was diagnosed with bronchitis 1 week ago and has completed a course of augmentin and prednisone. She states she has been doing neb treatments frequently and seems to be getting worse. Patient noted to be in moderate respiratory distress upon arrival with audible wheezes. She was tachycardic and tachypneic, but saturating appropriately on room air. No significant lab or imaging abnormalities. Tachycardia, tachypnea, and wheezing persisted despite multiple rounds of nebs, steroids, IV fluids, and magnesium. ED provider wishes to admit patient for further management. Allergies azithromycin [From Zithromax] Adverse Reaction (Verified 04/10/18 21:12) Anaphylaxis doxycycline Adverse Reaction (Verified 04/10/18 21:13) Anaphylaxis piperacillin [From Zosyn] Adverse Reaction (Verified 07/05/19 15:40) Hives/Rash sulfamethoxazole [From Bactrim] Adverse Reaction (Verified 07/05/19 05:02) Hives tazobactam [From Zosyn] Adverse Reaction (Verified 07/05/19 15:40) Hives/Rash trimethoprim [From Bactrim] Adverse Reaction (Verified 07/05/19 05:02) Hives Home medications list reviewed: Yes Home Medications: Albuterol Sulfate [Proair Hfa] 1 in IN PRN 04/10/18 Cetirizine HCl [Zyrtec*] 10 mg PO DAILY tablet 07/08/19 Ipratropium Neb [Atrovent*] 0.5 mg NEB [id number] #1 amp 07/08/19 Levalbuterol [Xopenex*] 1.25 mg NEB Q6HP PRN #1 vial 07/08/19 predniSONE [Prednisone*] 20 mg PO BID #20 tab 07/08/19 - Past Medical/Surgical History Diabetic: No -: Anxiety -: Asthma -: Seasonal allergies -: Appendectomy Psychosocial/ Personal History: She is single. She has no children - Family History Father -: Lung disease Mother -: Diabetes - Social History Smoking Status: Never smoker Alcohol use: No CD- Drugs: No Caffeine use: Yes Place of Residence: Home Review of Systems Respiratory: Shortness of Breath Physical Examination - Vital Signs Temperature: 98.3 F Blood Pressure: 101/58 Pulse: 128 Respirations: 21 Pulse Ox (%): 97 - Physical Exam General: Alert, In no apparent distress HEENT: Atraumatic, EOMI, Sclerae nonicteric Neck: Supple, 2+ carotid pulse no bruit Respiratory: Expiratory wheezes Cardiovascular: Irregular heart rate/rhythm (tachycardic) Gastrointestinal: Normal bowel sounds, No tenderness Musculoskeletal: No tenderness Integumentary: No rashes Neurological: Normal gait, Normal speech, Normal affect - Studies Laboratory Data (last 24 hrs) 12/18/22 00:35: Sodium 139, Potassium 3.3 L, BUN 10, Creatinine 0.87, Glucose 100, Total Bilirubin 0.2, AST 10 L, ALT 26, Alkaline Phosphatase 55 12/18/22 00:35: WBC 11.20 H, Hgb 11.6 L, Hct 35.1 L, Plt Count 241 Assessment and Plan - Problems (Diagnosis) (1) Severe asthma Current Visit: Yes Status: Acute Qualifiers: Asthma persistence: persistent Asthma complication type: with acute exacerbation Qualified Code(s): J45.51 - Severe persistent asthma with (acute) exacerbation - Plan Patient is admitted for further management of asthma exacerbation. Scheduled nebs, incentive spirometry, solumedrol, IV fluids. Pulmonlogy consult. Monitor pulse oximetry. Patient reports frequent asthma attacks, approximately every other day. Has seen pulm outpatient. Monitor and replete electrolytes per protocol. Discharge Plan: Home Plan to discharge in: 24 Hours - Advance Directives Does patient have a Living Will: No Does patient have a Durable POA for Healthcare: No - Code Status/Comfort Care Code Status Assessed: Yes Code Status: Full Code Physician Review: Patient Assessed, Agree with Above Assessment and Plan Critical Care: No Time Spent Managing Pts Care (In Minutes): 50
--- NOTE | 2022-12-18 04:17 | EDPHYS ---
Physician Documentation [facility] Name: Adelaide Blackmon Age: 22 yrs Sex: Female : 2000 Arrival Date: 12/17/2022 Time: 23:50 Bed 3 Private MD: ED Physician Davidson Vallejo HPI: 12/18 01:50 This 22 yrs old Female presents to ER via Ambulatory with complaints of Shortness Of rt Breath, Breathing Difficulty. 01:50 Patient presents to the ED with dyspnea for greater than 2 weeks. She has finished her rt course of steroids, antibiotics for reported bronchitis. Patient has been using albuterol inhalers and nebulizer treatments today, about every 2-4 hours. She states that she has not had adequate relief of her symptoms. She denies other acute complaints at this time. She does report a chest tightness associated with the breathing difficulty. Symptoms are moderate severity, no other aggravating alleviating factors.. 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 - Social history:: Smoking status: Patient denies any tobacco usage or history of. - Family history:: not pertinent. ROS: 12/18 01:50 Constitutional: Negative for fever, chills, and weight loss, Abdomen/GI: Negative for rt abdominal pain, nausea, vomiting, diarrhea, and constipation, MS/Extremity: Negative for injury and deformity, Skin: Negative for injury, rash, and discoloration, Neuro: Negative for headache, weakness, numbness, tingling, and seizure, Psych: Negative for depression, anxiety, suicide ideation, homicidal ideation, and hallucinations. Cardiovascular: Positive for chest pain, Negative for edema. Respiratory: Positive for shortness of breath, wheezing. Exam: 01:50 Constitutional: This is a well developed, well nourished patient who is awake, alert, rt and in no acute distress. Head/Face: Normocephalic, atraumatic. Chest/axilla: Normal chest wall appearance and motion. Nontender with no deformity. No lesions are appreciated. Cardiovascular: Regular rate and rhythm with a normal S1 and S2. No gallops, murmurs, or rubs. Normal PMI, no JVD. No pulse deficits. Abdomen/GI: Soft, non-tender, with normal bowel sounds. No distension or tympany. No guarding or rebound. No evidence of tenderness throughout. Skin: Warm, dry with normal turgor. Normal color with no rashes, no lesions, and no evidence of cellulitis. MS/ Extremity: Pulses equal, no cyanosis. Neurovascular intact. Full, normal range of motion. Neuro: Awake and alert, GCS 15, oriented to person, place, time, and situation. Cranial nerves II-XII grossly intact. Motor strength 5/5 in all extremities. Sensory grossly intact. Cerebellar exam normal. Normal gait. Psych: Awake, alert, with orientation to person, place and time. Behavior, mood, and affect are within normal limits. 01:50 ECG was reviewed by the Attending Physician. 01:50 Respiratory: Wheezes, diminished breath sounds, moderate respiratory distress. Vital Signs: 12/17 23:54 BP 125 / 62; Pulse 128; Resp 26 S; Temp 98.3(O); Pulse Ox 99% ; Weight 86.18 kg (R); as6 Height 4 ft. 11 in. (149.86 cm) (R); 12/18 01:56 BP 99 / 55; Pulse 120; Resp 24; Pulse Ox 100% on R/A; jb4 03:18 BP 101 / 58; Pulse 128; Resp 21 S; Pulse Ox 97% on R/A; as6 04:00 BP 121 / 71; Pulse 123; Resp 20; Pulse Ox 100% on R/A; jb4 04:43 BP 110 / 62; Pulse 128; Resp 19 S; Pulse Ox 98% on R/A; as6 05:08 Pulse 114; Resp 19; Pulse Ox 100% on R/A; jb4 05:56 BP 118 / 57; Pulse 117; Resp 24; Pulse Ox 97% on R/A; jb4 12/17 23:54 Body Mass Index 38.37 (86.18 kg, 149.86 cm) as6 MDM: 00:13 Patient medically screened. rt 04:14 Differential diagnosis: Pneumonia, pneumothorax, pulmonary embolism, congestive heart rt failure, asthma, bronchospasm. Antibiotic administration: Not indicated, the patient's primary pathology is reactive airway disease. Data reviewed: vital signs, nurses notes, old medical records, lab test result(s), EKG, radiologic studies. Consideration of Admission/Observation Patient was admitted/placed on observation. Management of patient was discussed with the following: Hospitalist: Agrees to admit. I considered the following discharge prescriptions or medication management in the emergency department Medications were administered in the Emergency Department. See MAR. Independent interpretation of the following test(s) in the Emergency Department X-Ray: My interpretation is No consolidation on my interpretation of the x-ray images. Care significantly affected by the following chronic conditions: Asthma. Counseling: I had a detailed discussion with the patient and/or guardian regarding: the historical points, exam findings, and any diagnostic results supporting the discharge/admit diagnosis, lab results, radiology results, the need for further work-up and treatment in the hospital. Response to treatment: the patient's symptoms have mildly improved after treatment. 12/18 00:20 Order name: CBC with Diff rt 12/18 00:20 Order name: CMP rt 12/18 00:20 Order name: BNP rt 12/18 00:20 Order name: Troponin High Sensitivity rt 12/18 00:20 Order name: D-Dimer rt 12/18 01:00 Order name: D-Dimer; Complete Time: 33 EDMS 12/18 01:03 Order name: CBC with Automated Diff; Complete Time: EDMS 12/18 01:14 Order name: Comprehensive Metabolic Panel; Complete Time: : EDMS 12/18 01:14 Order name: Troponin High Sensitivity; Complete Time: EDMS 12/18 01:14 Order name: NT PRO-BNP; Complete Time: :33 EDMS 12/18 04:03 Order name: COVID-19/FLU A+B rt 12/18 04:06 Order name: Test, Serum rt 12/18 04:42 Order name: Test Serum, Qualitat; Complete Time: 05:15 EDMS 12/18 05:01 Order name: COVID-19/FLU A+B; Complete Time: 05:15 EDMS 12/18 00:20 Order name: EKG; Complete Time: 00:21 rt 12/18 00:20 Order name: EKG - Nurse/Tech; Complete Time: 00:43 rt 12/18 00:20 Order name: Chest Pa And Lat (2 Views) XRAY rt EC:50 Rate is 106 beats/min. Rhythm is regular, Sinus tachycardia with No ectopy. QRS [place] is rt Normal. LA interval is normal. QRS interval is normal. QT interval is normal. No Q waves. T waves are Normal. No ST changes noted. Interpreted by me. Administered Medications: 01:09 Drug: DuoNeb (albuterol 2.5 mg, ipratropium 0.5 mg) (3:1) (2.5 mg - 0.5 mg) 3 ml Route: jb4 Nebulizer; 06:00 Follow up: Response: No adverse reaction as6 01:09 Drug: SOLU-Medrol (methylPrednisoLONE) 125 mg Route: IVP; Site: right antecubital; [facility] 06:00 Follow up: Response: No adverse reaction as6 01:09 Drug: Magnesium Sulfate 2 grams Route: IVPB; Infused Over: 60 mins; Site: right jb4 antecubital; 06:01 Follow up: Response: No adverse reaction; IV Status: Completed infusion; IV Intake: [id number] 01:09 Drug: NS 0.9% 1000 ml Route: IV; Rate: 1 bolus; Site: right antecubital; 4 06:01 Follow up: Response: No adverse reaction; IV Status: Completed infusion; IV Intake: as6 1000ml 01:56 Drug: DuoNeb (albuterol 2.5 mg, ipratropium 0.5 mg) (3:1) (2.5 mg - 0.5 mg) 3 ml Route: jb4 Nebulizer; 06:01 Follow up: Response: No adverse reaction as6 03:18 Drug: NS 0.9% 1000 ml Route: IV; Rate: 1 bolus; Site: right antecubital; as6 06:01 Follow up: Response: No adverse reaction; IV Status: Completed infusion; IV Intake: as6 1000ml 04:41 Drug: morphine 4 mg Route: IVP; Infused Over: 4 mins; Site: right antecubital; as6 06:02 Follow up: Response: No adverse reaction as6 04:41 Drug: Zofran (Ondansetron) 4 mg Route: IVP; Site: right antecubital; as6 06:02 Follow up: Response: No adverse reaction as6 Disposition: 04:16 Critical Care:. rt Disposition Summary: 12/18/22 04:16 Hospitalization Ordered Hospitalization Status: Inpatient Admission rt Provider: Tyson Gonzalez rt Condition: Serious rt Problem: an acute exacerbation rt Symptoms: have improved rt Bed/Room Type: Standard rt Location: [facility] ER HOLD(12/18/22 05:45) cg Room Assignment: ERHOLD-(12/18/22 05:45) cg Diagnosis - Unspecified asthma with (acute) exacerbation rt Forms: - Medication Reconciliation Form rt - SBAR form rt Critical care time excluding procedures: 04:16 Critical care time: Bedside Care: 30 minutes, Consultation: 5 minutes. Total time: 35 rt minutes Signatures: Dispatcher [employer] Bhavani Shelton RN RN cg Lauri Okeefe RN RN jb4 Spencer Duke RN RN as6 Mona Zabala PA-C PABrittny sb4 Davidson Vallejo MD MD rt Corrections: (The following items were deleted from the chart) 05:45 04:16 Telemetry/MedSurg (Inpatient) rt cg 05:45 04:16 rt cg
[2022-12-18] MEDS ORDERED: MORPHINE 4 MG/ML SYR ONE (04:42)
[2022-12-18] MEDS ORDERED: ONDANSETRON 4 MG/2 ML VIAL ONE (04:42)
[2022-12-18 05:01] LABS: SARS-COV-2 RT PCR NEGATIVE (NEGATIVE)
[2022-12-18] MEDS ORDERED: POTASSIUM 25 MEQ EFFERV TAB PO ONE (05:51)
[2022-12-18] MEDS ORDERED: NA CHLORIDE 0.9% 1,000 ML IV SCH (05:51)
[2022-12-18] MEDS ORDERED: ACETAMINOPHEN 500 MG TAB PO PRN (05:51)
[2022-12-18] MEDS ORDERED: ONDANSETRON 4 MG/2 ML VIAL IV PRN (05:51)
[2022-12-18 06:03] VITALS: BMI 38.3
[2022-12-18] MEDS ORDERED: POTASSIUM 25 MEQ EFFERV TAB ONE (06:23)
[2022-12-18 07:32] VITALS: BP 110/67; TEMP 97.8
[2022-12-18] MEDS ORDERED: INFLUENZA VACCINE (for 6+ mo) 0.5 ML DOSE IMVAC ONE (08:00)
[2022-12-18] MEDS ORDERED: ACETAMINOPHEN 500 MG TAB ONE (08:23)
[2022-12-18] MEDS ORDERED: METHYLPREDNISOLONE 40 MG INJ IV SCH (09:00)
[2022-12-18] MEDS ORDERED: ENOXAPARIN 40 MG/0.4 ML SQ SCH (09:00)
[2022-12-18] MEDS: IPRATROPIUM BROM 0.5MG/2.5ML NEB SCH ×2 (10:25→12:00)
[2022-12-18] MEDS: ALBUTEROL 2.5 MG/3 ML NEB SOL NEB SCH ×2 (10:25→12:00)
[2022-12-18] MEDS ORDERED: ENOXAPARIN 40 MG/0.4 ML SQ ONE (10:34)
[2022-12-18] MEDS ORDERED: METHYLPREDNISOLONE 40 MG INJ ONE (10:34)
[2022-12-18 11:31] VITALS: O2SAT 98
--- NOTE | 2022-12-18 12:04 | P.CNS ---
Date of Consult: 12/18/22 Reason for Consult: Asthma exacerabtion Primary Care Provider: Corby Burnett Chief Complaint: Asthma Exacerbation History of Present Illness: Pt os 22 yrs of age AW worsening SOB for 1 wks. second Er. Uses Nebs and Albuterol inhaler only. SOB on mild exertion Allergies azithromycin [From Zithromax] Adverse Reaction (Verified 04/10/18 21:12) Anaphylaxis doxycycline Adverse Reaction (Verified 04/10/18 21:13) Anaphylaxis piperacillin [From Zosyn] Adverse Reaction (Verified 07/05/19 15:40) Hives/Rash sulfamethoxazole [From Bactrim] Adverse Reaction (Verified 07/05/19 05:02) Hives tazobactam [From Zosyn] Adverse Reaction (Verified 07/05/19 15:40) Hives/Rash trimethoprim [From Bactrim] Adverse Reaction (Verified 07/05/19 05:02) Hives Home Medications: Albuterol Sulfate [Proair Hfa] 1 in IN PRN 04/10/18 Cetirizine HCl [Zyrtec*] 10 mg PO DAILY tablet 07/08/19 Ipratropium Neb [Atrovent*] 0.5 mg NEB [id number] #1 amp 07/08/19 Levalbuterol [Xopenex*] 1.25 mg NEB Q6HP PRN #1 vial 07/08/19 predniSONE [Prednisone*] 20 mg PO BID #20 tab 07/08/19 Fluticasone/Umeclidin/Vilanter [Trelegy Ellipta 200-62.5-25] 1 each IH DAILY 30 Days #30 aero 12/18/22 - Past Medical/Surgical History Diabetic: No -: Anxiety -: Asthma -: Seasonal allergies -: Appendectomy Psychosocial/ Personal History: She is single. She has no children - Family History Father Medical History: Lung disease Mother Medical History: Diabetes - Social History Smoking Status: Unknown if ever smoked Alcohol use: No CD- Drugs: No Caffeine use: Yes Place of Residence: Home Review of Systems 10-point ROS is otherwise unremarkable Physical Examination Temp Pulse Resp BP Pulse Ox 97.8 F 112 H 20 110/67 97 12/18/22 07:30 12/18/22 07:30 12/18/22 07:30 12/18/22 07:30 12/18/22 07:30 General: Alert, In no apparent distress, Oriented x3 Neck: Supple Respiratory: Expiratory wheezes Cardiovascular: No edema, Regular rate/rhythm Gastrointestinal: Normal bowel sounds, Soft and benign Laboratory Data (last 24 hrs) 12/18/22 00:35: Sodium 139, Potassium 3.3 L, BUN 10, Creatinine 0.87, Glucose 100, Total Bilirubin 0.2, AST 10 L, ALT 26, Alkaline Phosphatase 55 12/18/22 00:35: WBC 11.20 H, Hgb 11.6 L, Hct 35.1 L, Plt Count 241 - Problems (1) Asthma exacerbation Current Visit: Yes Status: Acute Plan: Age 22 AW asthma wxacerbation. Poorly controlled asthma, Does not use any LABA or inhaled steroids at home.Prior Hx of ecacerbations. Add Dulera, Zityhromax. CXRY clear Labs rev VS stable/ poss DC am on pred 20 BID for a week andTreelgy faxed Qualifiers: Asthma persistence: persistent
[2022-12-18] MEDS ORDERED: DULERA 200/5 (MOMETASONE/FORMOTEROL) INHALER IH SCH (12:13)
[2022-12-18] MEDS ORDERED: ALBUTEROL 2.5 MG/3 ML NEB SOL NEB PRN (12:14)
[2022-12-18] MEDS ORDERED: AZITHROMYCIN 250 MG TAB PO SCH (12:35)
--- NOTE | 2022-12-18 12:53 | P.DS ---
Admission Date: 12/18/22 Discharge Date: 12/18/22 Primary Care Provider: Corby Burnett Disposition: ROUTINE DISCHARGE Discharge Condition: FAIR Reason for Admission: Asthma Exacerbation Consultations: Pulmonary. - Problems (1) Asthma exacerbation Current Visit: Yes Status: Acute Qualifiers: Asthma persistence: persistent Brief History of Present Illness: Patient is a 22 year old female with past medical history of asthma who presented to the emergency department with complaints of shortness of breath and chest tightness. Patient reported that she was diagnosed with bronchitis 1 week ago and has completed a course of augmentin and prednisone. She states she has been using neb treatments frequently and was getting worse. Patient noted to be in moderate respiratory distress upon arrival with audible wheezes. She was tachycardic and tachypneic, but saturating appropriately on room air. No significant lab or imaging abnormalities. She still had tachycardia, tachypnea, and wheezing persisted despite multiple rounds of nebs, steroids, IV fluids, and magnesium. Patient was hospitalized for further management. Hospital Course: Patient placed under observation and treated with scheduled nebulizer and IV steroid. The wheezing resolved, patient was stable on room air. She was still complaining of some chest tightness. Peak flow was measured ranged from 200- 250. She was seen and evaluated by pulmonary Dr. Armas who recommended scheduled trilogy inhaler and albuterol as needed at home. Dr. St recommended a brief treatment with oral prednisone at home and okay for discharge. Her vitals are stable for discharge. Vital Signs/Physical Exam: Temp Pulse Resp BP Pulse Ox 97.8 F 112 H 20 110/67 97 12/18/22 07:30 12/18/22 07:30 12/18/22 07:30 12/18/22 07:30 12/18/22 07:30 General: Alert, In no apparent distress, Oriented x3, Obese HEENT: Mucous membr. moist/pink Neck: Supple, JVD not distended Respiratory: Clear to auscultation bilaterally, Normal air movement Cardiovascular: No edema, Regular rate/rhythm, Normal S1 S2, No murmurs Gastrointestinal: Normal bowel sounds, Soft and benign, Non-distended, No tenderness Musculoskeletal: No swelling, No tenderness Integumentary: No rashes, No cyanosis Neurological: Normal strength at 5/5 x4 extr Laboratory Data at Discharge: WBC 11.20 K/uL (4.3-10.9) H 12/18/22 00:35 Hgb 11.6 g/dL (12.0-15.0) L 12/18/22 00:35 Hct 35.1 % (36.0-45.0) L 12/18/22 00:35 Plt Count 241 K/uL (152-406) 12/18/22 00:35 Sodium 139 mmol/L (136-145) 12/18/22 00:35 Potassium 3.3 mmol/L (3.5-5.1) L 12/18/22 00:35 BUN 10 mg/dL (7-18) 12/18/22 00:35 Creatinine 0.87 mg/dL (0.55-1.02) 12/18/22 00:35 Glucose 100 mg/dL (74-106) 12/18/22 00:35 Total Bilirubin 0.2 mg/dL (0.2-1.0) 12/18/22 00:35 AST 10 U/L (15-37) L 12/18/22 00:35 ALT 26 U/L (13-56) 12/18/22 00:35 Alkaline Phosphatase 55 U/L (45-117) 12/18/22 00:35 Home Medications: Albuterol Sulfate [Proair Hfa] 1 in IN PRN 04/10/18 Cetirizine HCl [Zyrtec*] 10 mg PO DAILY tablet 07/08/19 Ipratropium Neb [Atrovent*] 0.5 mg NEB [id number] #1 amp 07/08/19 Levalbuterol [Xopenex*] 1.25 mg NEB Q6HP PRN #1 vial 07/08/19 Fluticasone/Umeclidin/Vilanter [Trelegy Ellipta 200-62.5-25] 1 each IH DAILY 30 Days #30 aero 12/18/22 predniSONE [Prednisone*] 20 mg PO BID #10 tab 12/18/22 New Medications: predniSONE [Prednisone*] 20 mg PO BID #10 tab Fluticasone/Umeclidin/Vilanter [Trelegy Ellipta 200-62.5-25] 1 each IH DAILY 30 Days #30 aero Diet: Regular Activity: Ad albert Followup: Jeremie Armas MD [ACTIVE - CAN ADMIT] - 1-2 Weeks
[2022-12-18] MEDS ORDERED: IPRATROPIUM BROM 0.5MG/2.5ML NEB SCH (14:00)
--- NOTE | 2022-12-18 16:18 | EKG ---
Test Date: 2022-12-18 Test Time: 00:32:42 Machine Former: EDGARDO MEASUREMENT RESULTS: Intervals: Rate: 106 CT: 134 QRSD: 78 QT: 320 QTc: 425 [place]: P: 76 CT: 134 QRS: 85 T: 37 INTERPRETIVE STATEMENTS: Sinus tachycardia Otherwise normal ECG Compared to ECG 11/11/2022 02:06:00 Sinus rhythm no longer present T-wave abnormality no longer present Electronically Signed On 12-18-22 16:16:44 FOOT GATHERER by Renato Cook
--- NOTE | 2022-12-18 21:09 | RAD REPORT ---
EXAM DESCRIPTION: Chest Pa And Lat (2 Views) CLINICAL HISTORY: 22 years Female, COUGH COMPARISON: Chest radiograph dated 11/11/2022 FINDINGS: No focal lung consolidation. No pleural effusion. No pneumothorax. Cardiomediastinal silhouette is within normal limits. No acute osseous abnormality. IMPRESSION: No acute cardiopulmonary disease. Electronically signed by: Eric Murphy DO 12/18/2022 12:57 AM HOME CARE SPECIALIST Due to temporary technical issues with the PACS/Fluency reporting system, reports are being signed by the in house radiologists without review as a courtesy to insure prompt reporting. The interpreting radiologist is fully responsible for the content of the report.
[2022-12-19] MEDS ORDERED: UMECLIDIN IH SCH (09:00)
[2022-12-19] MEDS ORDERED: [UNRECOGNIZED DRUG - OTHER] IH SCH (09:00)
[2022-12-19] MEDS ORDERED: FLUTICASONE IH SCH (09:00)
== END 2022-12-18 14:34 | disposition home or self-care (01) ==
LOC: ER 23:49 → ERHOLD 12-18 04:12
PROVIDERS: ADMIT Internal Medicine; ATTEND Internal Medicine
DX: J45.51 Severe persistent asthma with (acute) exacerbation (principal); Z88.3 Allergy status to other anti-infective agents; Z88.8 Allergy status to other drugs, medicaments and biological substances; Z20.822 Contact with and (suspected) exposure to COVID-19
CPT/HCPCS: 93005; 85025; 36415; 84703; 85379; 84484; 80053; 83880; 0240U; 71046; 94010 ×2; 94640; 94760; J7613 ×3; J7644 ×3; J1650; J3475; J7030 ×3; J2930; J2405; J2920; G0378

== ENCOUNTER 2023-03-25 21:28 | Emergency (ER) | payer BC ==
[2023-03-25 21:59] LABS: Absolute Lymphocytes (CBC) 1.6 K/uL (0.7-4.9); MCV 86.4 fL (80-100); MPV 8.6 fL (7.6-11.3); RBC Red Blood Cell Count 4.28 M/uL (3.86-4.86)
[2023-03-25] MEDS ORDERED: METHYLPREDNISOLONE 125 MG INJ ONE (22:12)
[2023-03-25] MEDS ORDERED: IPRATROPIUM BROM 0.5MG/2.5ML ONE ×2 (22:13→22:39)
[2023-03-25] MEDS ORDERED: Magnesium Sulfate 2gm IVPB 2 G/50 ML BAG IV ONE (22:13)
[2023-03-25] MEDS ORDERED: ALBUTEROL 2.5 MG/3 ML NEB SOL ONE (22:13)
[2023-03-25 22:17] LABS: SARS-CoV-2 Antigen Rapid Res Negative (Negative)
[2023-03-25 22:18] LABS: ALT/SGPT 24 U/L (13-56); AST/SGOT 13 U/L (15-37); Albumin 3.7 g/dL (3.4-5.0); Alkaline Phosphatase 52 U/L (45-117); BUN Blood Urea Nitrogen 8 mg/dL (7-18); Bicarbonate 26 mEq/L (21-32); Bilirubin Direct < 0.1 mg/dL (0-0.2); Bilirubin Indirect, Calculated ND mg/dL (0.2-0.8); Bilirubin Total 0.2 mg/dL (0.2-1.0); Glomerular Filtration Rate 84 ml/min (=/>90); Glucose Level 109 mg/dL (74-106); Potassium 3.6 mEq/L (3.5-5.1); Protein, Total 7.2 g/dL (6.4-8.2); Sodium Level 135 mEq/L (136-145)
[2023-03-25] MEDS ORDERED: ONDANSETRON 4 MG/2 ML VIAL ONE (23:08)
[2023-03-25] MEDS ORDERED: MORPHINE 4 MG/ML SYR ONE (23:08)
[2023-03-25] MEDS ORDERED: KETOROLAC 30 MG/ML INJ ONE (23:08)
[2023-03-26] MEDS ORDERED: IPRATROPIUM BROM 0.5MG/2.5ML ONE (02:10)
[2023-03-26] MEDS ORDERED: ALBUTEROL 2.5 MG/3 ML NEB SOL ONE (02:10)
--- NOTE | 2023-03-26 02:44 | ER ---
Nurse's Notes [facility] Name: Adelaide Trinidad Age: 23 yrs Sex: Female : 2000 Arrival Date: 03/25/2023 Time: 21:28 Bed 2 Private MD: Diagnosis: Moderate persistent asthma with (acute) exacerbation Presentation: 03/25 21:39 Chief complaint: Patient states: I have been feeling short of breath for the past kd3 couple of days. At work they have been working on the floors and the workers said that their machine was putting out a lot of carbon monoxide. I don't know if that made me sick or anything. But i have tried to use my treatments at home and it has not helped. Coronavirus screen: Vaccine status: Patient reports being unvaccinated. Ebola Screen: No symptoms or risks identified at this time. Initial Sepsis Screen: Does the patient meet any 2 criteria? No. Patient's initial sepsis screen is negative. Does the patient have a suspected source of infection? No. Patient's initial sepsis screen is negative. Risk Assessment: Do you want to hurt yourself or someone else? Patient reports no desire to harm self or others. Onset of symptoms was March 25, 2023. 21:39 Method Of Arrival: Ambulatory kd3 21:39 Acuity: LUIZ 3 kd3 Triage Assessment: 21:39 General: Appears uncomfortable, Behavior is calm, cooperative. Pain: Complains of pain kd3 in chest. Respiratory: Reports shortness of breath Onset: The symptoms/episode began/occurred gradually, the patient has moderate shortness of breath. 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 - Social history:: Patient/guardian denies using alcohol, street drugs, IV drugs, caffeine, over the counter diet medications, tobacco products, Smoking status: Patient denies any tobacco usage or history of. - Family history:: not pertinent. Screenin:08 [facility] ED Fall Risk Assessment (Adult) History of falling in the last 3 months, ph including since admission No falls in past 3 months (0 pts) Confusion or Disorientation No (0 pts) Intoxicated or Sedated No (0 pts) Impaired Gait No (0 pts) Mobility Assist Device Used No (0 pt) Altered Elimination No (0 pt) Score/Fall Risk Level 0 - 2 = Low Risk Oriented to surroundings, Maintained a safe environment, Educated pt \T\ family on fall prevention, incl call for assistance when getting out of bed. Abuse screen: Denies threats or abuse. Denies injuries from another. Nutritional screening: No deficits noted. Tuberculosis screening: No symptoms or risk factors identified. Assessment: 21:45 General: Appears in no apparent distress. well groomed, well developed, Behavior is pf1 calm, cooperative, appropriate for age, quiet. 21:45 Pain: Denies pain. Pain: Denies pain. Complains of pain in chest. Neuro: No deficits pf1 noted. Level of Consciousness is awake, alert, obeys commands, Oriented to person, place, time, situation. Cardiovascular: No deficits noted. Capillary refill < 3 seconds Patient's skin is warm and dry. Respiratory: Reports shortness of breath at rest on exertion Airway is patent Trachea midline Respiratory effort is even, unlabored, Respiratory pattern is regular, symmetrical, Breath sounds with wheezes bilaterally. GI: No deficits noted. No signs and/or symptoms were reported involving the gastrointestinal system. : No deficits noted. No signs and/or symptoms were reported regarding the genitourinary system. EENT: No deficits noted. No signs and/or symptoms were reported regarding the EENT system. Derm: No deficits noted. No signs and/or symptoms reported regarding the dermatologic system. 22:45 Reassessment: Patient appears in no apparent distress at this time. Patient and/or pf1 family updated on plan of care and expected duration. Pain level reassessed. Patient is alert, oriented x 3, equal unlabored respirations, skin warm/dry/pink. Patient states symptoms have improved. 23:45 Reassessment: Patient appears in no apparent distress at this time. Patient and/or pf1 family updated on plan of care and expected duration. Pain level reassessed. Patient is alert, oriented x 3, equal unlabored respirations, skin warm/dry/pink. Patient states feeling better. Patient states symptoms have improved. 03/26 00:00 Reassessment: Patient appears in no apparent distress at this time. Patient and/or pf1 family updated on plan of care and expected duration. Pain level reassessed. Patient is alert, oriented x 3, equal unlabored respirations, skin warm/dry/pink. Patient states feeling better. Patient states symptoms have improved. 01:00 Reassessment: No changes from previously documented assessment. Patient and/or family pf1 updated on plan of care and expected duration. Pain level reassessed. Patient is alert, oriented x 3, equal unlabored respirations, skin warm/dry/pink. Patient states feeling better. Patient states symptoms have improved. 02:00 Reassessment: Patient appears in no apparent distress at this time. No changes from pf1 previously documented assessment. Patient and/or family updated on plan of care and expected duration. Pain level reassessed. Patient is alert, oriented x 3, equal unlabored respirations, skin warm/dry/pink. Patient states feeling better. Patient states symptoms have improved. 03:00 Reassessment: Patient appears in no apparent distress at this time. No changes from pf1 previously documented assessment. Patient and/or family updated on plan of care and expected duration. Pain level reassessed. Patient is alert, oriented x 3, equal unlabored respirations, skin warm/dry/pink. Patient states feeling better. Patient states symptoms have improved. Vital Signs: 03/25 21:39 BP 132 / 72; Pulse 90; Resp 23; Temp 98(O); Pulse Ox 100% on R/A; Weight 86.18 kg; kd3 Height 4 ft. 11 in. ; 22:45 BP 107 / 78; Pulse 101; Resp 20; Pulse Ox 100% on Nebulizer Mask; ph 23:30 BP 109 / 56; Pulse 97; Resp 19; Pulse Ox 96% on R/A; Pain 0/10; pf1 03/26 00:24 BP 110 / 68; Pulse 87; Resp 20; Pulse Ox 94% on R/A; ll3 01:30 BP 112 / 68; Pulse 99; Resp 19; Pulse Ox 97% on Nebulizer Mask; Pain 0/10; pf1 02:30 BP 121 / 69; Pulse 103; Resp 20; Pulse Ox 97% on R/A; Pain 0/10; pf1 03/25 21:39 Body Mass Index 38.37 (86.18 kg, 149.86 cm) kd3 23:30 Pain Scale: Adult pf1 01:30 Pain Scale: Adult pf1 02:30 Pain Scale: Adult pf1 ED Course: 03/25 21:28 Patient arrived in ED. ja2 21:34 Jameel Jaime MD is Attending Physician. sp4 21:39 Arm band placed on right wrist. kd3 21:42 Triage completed. kd3 21:55 Inserted saline lock: 22 gauge in right antecubital area, using aseptic technique. pf1 Blood collected. 21:58 SARS RAPID Sent. pf1 21:59 BMP Sent. pf1 21:59 CBC with Diff Sent. pf1 21:59 Hepatic Function Sent. pf1 22:58 Chest Single View XRAY In Process Unspecified. EDMS 23:09 Patient has correct armband on for positive identification. Bed in low position. Call ph light in reach. Side rails up X 1. Client placed on continuous cardiac and pulse oximetry monitoring. NIBP monitoring applied. 03/26 03:15 No provider procedures requiring assistance completed. IV discontinued, intact, pf1 bleeding controlled, No redness/swelling at site. Pressure dressing applied. Administered Medications: 03/25 22:15 Drug: DuoNeb Nebulize (3:1) (2.5 mg - 0.5 mg) 9 ml Route: Nebulizer; pf1 23:15 Follow up: Response: No adverse reaction; Marked relief of symptoms pf1 22:15 Drug: MethylPrednisoLONE IVP 125 mg Route: IVP; Site: right antecubital; pf1 23:15 Follow up: Response: No adverse reaction; Marked relief of symptoms pf1 22:15 Drug: Magnesium Sulfate IVPB 2 grams Route: IVPB; Infused Over: 2 hrs; Site: right pf1 antecubital; 03/26 00:15 Follow up: Response: No adverse reaction; Marked relief of symptoms; IV Status: pf1 Completed infusion; IV Intake: 50ml 03/25 23:14 Drug: morphine IVP or IV 4 mg Route: IVP; Infused Over: 4 mins; Site: left antecubital; ks5 03/26 00:10 Follow up: Response: No adverse reaction; Marked relief of symptoms pf1 03/25 23:14 Drug: Ketorolac IVP 30 mg Route: IVP; Site: left antecubital; ks5 03/26 00:10 Follow up: Response: No adverse reaction; Marked relief of symptoms; Pain is decreased pf1 03/25 23:14 Drug: Ondansetron IVP 4 mg Route: IVP; Site: left antecubital; ks5 03/26 00:00 Follow up: Response: No adverse reaction; Marked relief of symptoms pf1 02:03 Drug: DuoNeb Nebulize (3:1) (2.5 mg - 0.5 mg) 3 ml Route: Nebulizer; pf1 03:00 Follow up: Response: No adverse reaction; Marked relief of symptoms pf1 02:04 Drug: DuoNeb Nebulize (3:1) (2.5 mg - 0.5 mg) 3 ml Route: Nebulizer; pf1 03:00 Follow up: Response: No adverse reaction; Marked relief of symptoms pf1 Medication: 03:18 VIS not applicable for this client. pf1 Intake: 00:15 IV: 50ml; Total: 50ml. pf1 Outcome: 02:44 Discharge ordered by . sp4 03:17 Discharged to home ambulatory. pf1 03:17 Condition: improved 03:17 Discharge instructions given to patient, Instructed on discharge instructions, follow up and referral plans. Demonstrated understanding of instructions, follow-up care, medications, Prescriptions given X 1. 03:18 Patient left the ED. pf1 Signatures: Dispatcher [employer] EDLainey Alonso RN Raissa Shelton ph RN RN ks5 Baylee Mejia Lynsea RN RN ll3 Xiomara Ceballos RN RN kd3 Nataly Crowley RN RN pf1 Jameel Jaime MD MD sp4 Corrections: (The following items were deleted from the chart) 03/25 21:40 21:40 PSHx: Appendectomy; sp4 sp4 21:40 21:40 PSHx: right hip repair; sp4 sp4
--- NOTE | 2023-03-26 02:44 | EDPHYS ---
Physician Documentation [facility] Name: Adelaide Trinidad Age: 23 yrs Sex: Female : 2000 Arrival Date: 03/25/2023 Time: 21:28 Bed 2 Private MD: ED Physician Jameel Jaime HPI: 03/25 21:34 This 23 yrs old Female presents to ER via Unassigned with complaints of sp4 Shortness Of Breath. 21:39 23-year-old female with past medical history of asthma presents with acute asthma sp4 exacerbation starting 2 days ago . Patient has used multiple inhalers at home without significant relief. On presentation patient complains of dyspnea, wheezing, cough. 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 - Social history:: Patient/guardian denies using alcohol, street drugs, IV drugs, caffeine, over the counter diet medications, tobacco products, Smoking status: Patient denies any tobacco usage or history of. - Family history:: not pertinent. ROS: 21:40 Constitutional: Negative for fever, chills, and weight loss, Eyes: Negative for injury, sp4 pain, redness, and discharge, ENT: Negative for injury, pain, and discharge, Neck: Negative for injury, pain, and swelling, Cardiovascular: Negative for chest pain, palpitations, and edema, Respiratory: Negative for pleuritic chest pain, positive for dyspnea, cough, wheezing Abdomen/GI: Negative for abdominal pain, nausea, vomiting, diarrhea, and constipation, Back: Negative for injury and pain, : Negative for injury, bleeding, discharge, and swelling, MS/Extremity: Negative for injury and deformity, Skin: Negative for injury, rash, and discoloration, Neuro: Negative for headache, weakness, numbness, tingling, and seizure, Psych: Negative for depression, anxiety, Allergy/Immunology: Negative for hives, rash, and allergies Endocrine: Negative for neck swelling, polydipsia, polyuria, polyphagia, and weight changes Hematologic/Lymphatic: Negative for swollen nodes, abnormal bleeding, and unusual bruising Exam: 21:40 Constitutional: This is a well developed, well nourished patient who is awake, alert, sp4 and in no acute distress. Head/Face: Normocephalic, atraumatic. Eyes: Pupils equal round and reactive to light, extra-ocular motions intact. Lids and lashes normal. Conjunctiva and sclera are not injected. Cornea within normal limits. Periorbital areas with no swelling, redness, or edema. ENT: Nares patent. No nasal discharge, no septal abnormalities noted. Tympanic membranes are normal and external auditory canals are clear. Oropharynx with no redness, swelling, or masses, exudates, or evidence of obstruction, uvula midline. Mucous membranes moist. Neck: Trachea midline, no thyromegaly or masses palpated, and no cervical lymphadenopathy. Supple, full range of motion without nuchal rigidity, or vertebral point tenderness. No Meningismus. Chest/axilla: Normal chest wall appearance and motion. Nontender with no deformity. No lesions are appreciated. Cardiovascular: Regular rate and rhythm with a normal S1 and S2. No gallops, murmurs, or rubs. Normal PMI, no JVD. No pulse deficits. Respiratory: Lungs have equal breath sounds bilaterally, positive expiratory wheezes bilaterally diffusely that are moderate. There is dyspnea, tachypnea, no accessory muscle use, no retractions Abdomen/GI: Soft, non-tender, with normal bowel sounds. No distension or tympany. No guarding or rebound. No evidence of tenderness throughout. Back: No spinal tenderness. No costovertebral tenderness. Skin: Warm, dry with normal turgor. Normal color with no rashes, no lesions, and no evidence of cellulitis. MS/ Extremity: Pulses equal, no cyanosis. Neurovascular intact. Full, normal range of motion. Neuro: Awake and alert, GCS 15, oriented to person, place, time, and situation. Cranial nerves II-XII grossly intact. Motor strength 5/5 in all extremities. Sensory grossly intact. Psych: Awake, alert, with orientation to person, place and time. Behavior, mood, and affect are within normal limits Vital Signs: 21:39 BP 132 / 72; Pulse 90; Resp 23; Temp 98(O); Pulse Ox 100% on R/A; Weight 86.18 kg; kd3 Height 4 ft. 11 in. ; 22:45 BP 107 / 78; Pulse 101; Resp 20; Pulse Ox 100% on Nebulizer Mask; ph 23:30 BP 109 / 56; Pulse 97; Resp 19; Pulse Ox 96% on R/A; Pain 0/10; pf1 03/26 00:24 BP 110 / 68; Pulse 87; Resp 20; Pulse Ox 94% on R/A; ll3 01:30 BP 112 / 68; Pulse 99; Resp 19; Pulse Ox 97% on Nebulizer Mask; Pain 0/10; pf1 02:30 BP 121 / 69; Pulse 103; Resp 20; Pulse Ox 97% on R/A; Pain 0/10; pf1 03/25 21:39 Body Mass Index 38.37 (86.18 kg, 149.86 cm) kd3 23:30 Pain Scale: Adult pf1 01:30 Pain Scale: Adult pf1 02:30 Pain Scale: Adult pf1 MDM: 03/25 21:39 Patient medically screened. sp4 03/26 02:41 Differential diagnosis: Anxiety Reaction asthma, CHF exacerbation, pneumonia, sp4 Pneumothorax Psychogenic. Data reviewed: vital signs, nurses notes, diagnostic data from outside facility, old medical records, lab test result(s), CBC, electrolytes, hepatic panel, UPT: radiologic studies. Consideration of Admission/Observation Escalation of care including admission/observation considered. ED course: Asthma has improved after 5 DuoNebs Toradol, Solu-Medrol IV, and an IV magnesium. Patient was given chest pain medications Toradol and morphine sulfate. Chest x-ray is clear. Labs unremarkable. Wheezes have resolved in ER. Patient stable for discharge home with p.o. prednisone for the next 5 days. Will advise albuterol treatments every 4 hours. . 03/25 21:37 Order name: BMP; Complete Time: : sp4 03/25 21:37 Order name: CBC with Diff; Complete Time: : sp4 03/25 21:37 Order name: Hepatic Function; Complete Time: sp4 03/25 21:38 Order name: Test, Serum; Complete Time: 01: sp4 03/25 21:39 Order name: SARS RAPID; Complete Time: 01: sp4 03/25 21:39 Order name: Chest Single View XRAY sp4 03/25 21:37 Order name: IV Saline Lock; Complete Time: 21:58 sp4 03/25 21:37 Order name: Labs collected and sent; Complete Time: 21:58 sp4 03/25 21:37 Order name: O2 Per Protocol; Complete Time: :58 sp4 03/25 21:37 Order name: O2 Sat Monitoring; Complete Time: :58 sp4 Administered Medications: 03/25 22:15 Drug: DuoNeb Nebulize (3:1) (2.5 mg - 0.5 mg) 9 ml Route: Nebulizer; pf1 23:15 Follow up: Response: No adverse reaction; Marked relief of symptoms pf1 22:15 Drug: MethylPrednisoLONE IVP 125 mg Route: IVP; Site: right antecubital; pf1 23:15 Follow up: Response: No adverse reaction; Marked relief of symptoms pf1 22:15 Drug: Magnesium Sulfate IVPB 2 grams Route: IVPB; Infused Over: 2 hrs; Site: right pf1 antecubital; 03/26 00:15 Follow up: Response: No adverse reaction; Marked relief of symptoms; IV Status: pf1 Completed infusion; IV Intake: 50ml 03/25 23:14 Drug: morphine IVP or IV 4 mg Route: IVP; Infused Over: 4 mins; Site: left antecubital; ks5 03/26 00:10 Follow up: Response: No adverse reaction; Marked relief of symptoms pf1 03/25 23:14 Drug: Ketorolac IVP 30 mg Route: IVP; Site: left antecubital; ks5 03/26 00:10 Follow up: Response: No adverse reaction; Marked relief of symptoms; Pain is decreased pf1 03/25 23:14 Drug: Ondansetron IVP 4 mg Route: IVP; Site: left antecubital; ks5 03/26 00:00 Follow up: Response: No adverse reaction; Marked relief of symptoms pf1 02:03 Drug: DuoNeb Nebulize (3:1) (2.5 mg - 0.5 mg) 3 ml Route: Nebulizer; pf1 03:00 Follow up: Response: No adverse reaction; Marked relief of symptoms pf1 02:04 Drug: DuoNeb Nebulize (3:1) (2.5 mg - 0.5 mg) 3 ml Route: Nebulizer; pf1 03:00 Follow up: Response: No adverse reaction; Marked relief of symptoms pf1 Disposition Summary: 03/26/23 02:44 Discharge Ordered Location: Home sp4 Problem: new sp4 Symptoms: have improved sp4 Condition: Stable sp4 Diagnosis - Moderate persistent asthma with (acute) exacerbation sp4 Followup: sp4 - With: Private Physician - When: 5 - 6 days - Reason: Recheck today's complaints Discharge Instructions: - Discharge Summary Sheet sp4 - Asthma, Adult sp4 Prescriptions: - Prednisone 20 mg Oral Tablet - take 2 tablets by ORAL route once daily for 5 days; 10 tablet; Refills: 0, sp4 Product Selection Permitted Signatures: Dispatcher [employer] EDRaissa Chamberlain RN RN ks5 Xiomara Ceballos RN RN kd3 Nataly Crowley RN RN pf1 Jameel Jaime MD MD sp4 Corrections: (The following items were deleted from the chart) 03/25 21:40 21:40 PSHx: Appendectomy; sp4 sp4 21:40 21:40 PSHx: right hip repair; sp4 sp4
[2023-03-26 03:33] VITALS: TEMP 98
[2023-03-26 03:47] VITALS: O2SAT 97
[2023-03-26 03:48] VITALS: BP 121/69
--- NOTE | 2023-03-26 16:03 | RAD REPORT ---
EXAM DESCRIPTION: RAD - Chest Single View - 03/25/2023 10:56 pm CLINICAL HISTORY: The patient is 23 years old and is Female; COUGH TECHNIQUE: Frontal view of the chest. COMPARISON: No relevant prior studies available. FINDINGS: Lungs: Unremarkable. No consolidation. Pleural space: Unremarkable. No pneumothorax. Heart: Unremarkable. Mediastinum: Unremarkable. Bones/joints: Unremarkable. IMPRESSION: No acute findings in the chest. Electronically signed by: Shun Abarca MD 03/25/2023 11:50 PM CDT Due to temporary technical issues with the PACS/Fluency reporting system, reports are being signed by the in house radiologists without review as a courtesy to insure prompt reporting. The interpreting radiologist is fully responsible for the content of the report.
== END 2023-03-26 03:18 | disposition home or self-care (01) ==
LOC: ER 21:28
DX: J45.41 Moderate persistent asthma with (acute) exacerbation (principal); Z20.822 Contact with and (suspected) exposure to COVID-19
CPT/HCPCS: 85025; 80048; 36415; 84703; 80076; 71045; 94640; 99285; 87811; J3475; J7613 ×2; J7644 ×3; J2930; J2405

== ENCOUNTER 2023-04-15 00:21 | Emergency (ER) | payer BC ==
[2023-04-15] MEDS ORDERED: MORPHINE 4 MG/ML SYR ONE (01:58)
[2023-04-15] MEDS ORDERED: CYCLOBENZAPRINE 10 MG TAB ONE (01:58)
[2023-04-15] MEDS ORDERED: KETOROLAC 30 MG/ML INJ ONE (01:58)
[2023-04-15] MEDS ORDERED: NA CHLORIDE 0.9% 1,000 ML ONE (01:59)
[2023-04-15] MEDS ORDERED: ONDANSETRON 4 MG/2 ML VIAL ONE (01:59)
[2023-04-15 02:05] LABS: Absolute Lymphocytes (CBC) 1.6 K/uL (0.7-4.9); Hematocrit 38.4 % (36.0-45.0); Lymphocytes % 22.2 % (15.3-44.8); MCV 86.4 fL (80-100); MPV 9.6 fL (7.6-11.3); RBC Red Blood Cell Count 4.45 M/uL (3.86-4.86)
[2023-04-15 02:07] LABS: Specific Gravity 1.022 (1.005-1.030); Urine Bacteria None Seen /HPF (<20); Urine Bilirubin NEGATIVE (Negative); Urine Blood 1+ (Negative); Urine Clarity Extremely Turbid (Clear); Urine Color Light-Yellow (Yellow); Urine Glucose NEGATIVE (Negative); Urine Mucus Slight /HPF (None Seen); Urine Protein TRACE (Negative); Urine RBC <5 /HPF (None Seen); Urine Urobilinogen Normal (Normal)
[2023-04-15 02:19] LABS: Bilirubin Total 0.3 mg/dL (0.2-1.0); Potassium 3.6 mEq/L (3.5-5.1); Protein, Total 7.4 g/dL (6.4-8.2)
--- NOTE | 2023-04-15 03:40 | ER ---
Nurse's Notes [facility] [place] Name: Adelaide Trinidad Age: 23 yrs Sex: Female : 2000 Arrival Date: 04/15/2023 Time: 00:21 Bed 13 Private MD: Diagnosis: Other and unspecified ovarian cysts;Corpus luteum cyst of left ovary;Pelvic and perineal pain Presentation: 04/15 00:57 Chief complaint: Patient states: I am having bad left pelvic pain. I thought it was kd3 PCOS or a UTI. I went to the urgent care and they gave me and antibiotic for a UTI but the pain is getting worse. Coronavirus screen: Vaccine status: Patient reports being unvaccinated. Ebola Screen: No symptoms or risks identified at this time. Initial Sepsis Screen: Does the patient meet any 2 criteria? No. Patient's initial sepsis screen is negative. Does the patient have a suspected source of infection? No. Patient's initial sepsis screen is negative. Risk Assessment: Do you want to hurt yourself or someone else? Patient reports no desire to harm self or others. Onset of symptoms was April 15, 2023. 00:57 Method Of Arrival: Ambulatory kd3 00:57 Acuity: LUIZ 3 kd3 Triage Assessment: 00:58 General: Appears uncomfortable, Behavior is calm, cooperative. Pain: Complains of pain kd3 in left lower quadrant. Respiratory: Airway is patent Trachea midline Respiratory effort is even, unlabored, Respiratory pattern is regular, symmetrical. 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 - Social history:: Smoking status: Patient denies any tobacco usage or history of. Screenin:28 [facility] ED Fall Risk Assessment (Adult) History of falling in the last 3 months, vc1 including since admission No falls in past 3 months (0 pts) Confusion or Disorientation No (0 pts) Intoxicated or Sedated No (0 pts) Impaired Gait No (0 pts) Mobility Assist Device Used No (0 pt) Altered Elimination No (0 pt) Score/Fall Risk Level 0 - 2 = Low Risk Oriented to surroundings, Maintained a safe environment, Educated pt \T\ family on fall prevention, incl call for assistance when getting out of bed. Abuse screen: Denies threats or abuse. Nutritional screening: No deficits noted. Tuberculosis screening: No symptoms or risk factors identified. Assessment: 02:00 Reassessment: Patient and/or family updated on plan of care and expected duration. Pain vc1 level reassessed. Patient is alert, oriented x 3, equal unlabored respirations, skin warm/dry/pink. Patient states feeling better. Patient states symptoms have improved. 03:00 Reassessment: No changes from previously documented assessment. Patient and/or family vc1 updated on plan of care and expected duration. Pain level reassessed. Patient is alert, oriented x 3, equal unlabored respirations, skin warm/dry/pink. 03:44 Reassessment: No changes from previously documented assessment. Patient and/or family vc1 updated on plan of care and expected duration. Pain level reassessed. Patient is alert, oriented x 3, equal unlabored respirations, skin warm/dry/pink. Vital Signs: 00:55 Pulse 112; Resp 15; Temp 98.2(TE); Pulse Ox 98% on R/A; Weight 86.18 kg; Height 4 ft. kd3 11 in. ; 00:57 BP 129 / 89; kd3 02:00 BP 115 / 68; Pulse 80; Resp 16; Pulse Ox 97% ; vc1 03:30 BP 125 / 79; Pulse 82; Resp 17; Pulse Ox 98% ; vc1 00:55 Body Mass Index 38.37 (86.18 kg, 149.86 cm) kd3 ED Course: 00:23 Patient arrived in ED. ja2 00:50 Jameel Jaime MD is Attending Physician. sp4 00:58 Triage completed. kd3 00:58 Arm band placed on right wrist. kd3 01:42 CBC with Diff Sent. bc6 01:42 CMP Sent. bc6 01:42 Lipase Sent. bc6 01:42 Test, Urine Sent. bc6 01:42 Urinalysis w/ reflexes Sent. bc6 01:42 Missed attempt(s): 22 gauge in right upper arm. bc6 01:45 Patient has correct armband on for positive identification. Bed in low position. Call vc1 light in reach. Pulse ox on. NIBP on. 01:46 Ally Coulter, RN is Primary Nurse. vc1 02:46 CT Abd/Pelvis - IV Contrast Only In Process Unspecified. EDMS 03:52 No provider procedures requiring assistance completed. IV discontinued, intact, vc1 bleeding controlled, No redness/swelling at site. Pressure dressing applied. Administered Medications: 02:02 Drug: NS 0.9% IV 1000 ml Route: IV; Rate: 1 bolus; Site: right antecubital; vc1 03:42 Follow up: IV Status: Completed infusion; IV Intake: 1000ml vc1 02:02 Drug: TORadol - Ketorolac IVP 15 mg Route: IVP; Site: right antecubital; vc1 02:30 Follow up: Response: No adverse reaction; Marked relief of symptoms vc1 02:02 Drug: morphine IVP or IV 4 mg Route: IVP; Infused Over: 4 mins; Site: right antecubital;vc1 02:30 Follow up: Response: No adverse reaction; Marked relief of symptoms; Pain is decreased vc1 02:02 Drug: Cyclobenzaprine PO 10 mg Route: PO; vc1 02:30 Follow up: Response: No adverse reaction; Marked relief of symptoms; Pain is decreased vc1 02:02 Drug: Ondansetron IVP 4 mg Route: IVP; Site: left antecubital; vc1 02:30 Follow up: Response: No adverse reaction; Marked relief of symptoms; Pain is decreased vc1 03:39 Drug: [place] PO 10 mg-325 mg 1 tabs Route: PO; vc1 03:43 Follow up: Response: Medication administered at discharge. vc1 03:39 Drug: Promethazine PO 25 mg Route: PO; vc1 03:43 Follow up: Response: Medication administered at discharge. vc1 Medication: 02:29 VIS not applicable for this client. vc1 Intake: 03:42 IV: 1000ml; Total: 1000ml. vc1 Outcome: 03:40 Discharge ordered by . sp4 03:52 Discharged to home ambulatory, with significant other. vc1 03:52 Condition: good 03:52 Discharge instructions given to patient, Instructed on discharge instructions, follow up and referral plans. medication usage, Demonstrated understanding of instructions, follow-up care, medications, Prescriptions given X 3. 03:52 Patient left the ED. vc1 Signatures: Dispatcher [employer] EDMS Baylee Mejia2 Xiomara Ceballos RN RN kd3 Ally Coulter RN RN vc1 Magdalene Mendez6 Jameel Jaime MD MD sp4 Corrections: (The following items were deleted from the chart) 01:00 00:58 Allergies: Azithromycin; kd3 kd3
--- NOTE | 2023-04-15 03:40 | EDPHYS ---
Physician Documentation [facility] Name: Adelaide Trinidad Age: 23 yrs Sex: Female : 2000 Arrival Date: 04/15/2023 Time: 00:21 Bed 13 Private MD: ED Physician Jameel Jaime HPI: 04/15 00:51 This 23 yrs old Female presents to ER via Unassigned with complaints of sp4 Pelvic Pain. 03:02 23-year-old female with past medical history of asthma presents with acute presenting sp4 complaint of left lower pelvic pain starting 2 weeks ago. Patient went to urgent care clinic was prescribed Keflex for acute UTI. This has improved after some time but pain returned and is now associated with nausea. Patient has history of appendectomy cholecystectomy. Also patient has history of polycystic ovarian syndrome. Additional history includes anxiety, asthma, depression, hypothyroidism. 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 - Social history:: Smoking status: Patient denies any tobacco usage or history of. ROS: 03:03 Constitutional: Negative for fever, chills, and weight loss, Eyes: Negative for injury, sp4 pain, redness, and discharge, ENT: Negative for injury, pain, and discharge, Neck: Negative for injury, pain, and swelling, Cardiovascular: Negative for chest pain, palpitations, and edema, Respiratory: Negative for shortness of breath, cough, wheezing, and pleuritic chest pain, Abdomen/GI: Negative for vomiting, diarrhea, and constipation, positive for left lower abdominal pain associated with nausea.. Back: Negative for injury and pain, : Negative for injury, bleeding, discharge, and swelling, MS/Extremity: Negative for injury and deformity, Skin: Negative for injury, rash, and discoloration, Neuro: Negative for headache, weakness, numbness, tingling, and seizure, Psych: Negative for depression, anxiety, Allergy/Immunology: Negative for hives, rash, and allergies Endocrine: Negative for neck swelling, polydipsia, polyuria, polyphagia, and weight changes Hematologic/Lymphatic: Negative for swollen nodes, abnormal bleeding, and unusual bruising Exam: 03:03 Constitutional: This is a well developed, well nourished patient who is awake, alert, sp4 and in no acute distress. Head/Face: Normocephalic, atraumatic. Eyes: Pupils equal round and reactive to light, extra-ocular motions intact. Lids and lashes normal. Conjunctiva and sclera are not injected. Cornea within normal limits. Periorbital areas with no swelling, redness, or edema. ENT: Nares patent. No nasal discharge, no septal abnormalities noted. Tympanic membranes are normal and external auditory canals are clear. Oropharynx with no redness, swelling, or masses, exudates, or evidence of obstruction, uvula midline. Mucous membranes moist. Neck: Trachea midline, no thyromegaly or masses palpated, and no cervical lymphadenopathy. Supple, full range of motion without nuchal rigidity, or vertebral point tenderness. Chest/axilla: Normal chest wall appearance and motion. Nontender with no deformity. No lesions are appreciated. Cardiovascular: Regular rate and rhythm with a normal S1 and S2. No gallops, murmurs, or rubs. Normal PMI, no JVD. No pulse deficits. Respiratory: Lungs have equal breath sounds bilaterally, clear to auscultation and percussion. No rales, rhonchi or wheezes noted. No increased work of breathing, no retractions or nasal flaring. Abdomen/GI: Soft, No distension or tympany. No guarding or rebound. Left lower abdominal tenderness. Back: No spinal tenderness. No costovertebral tenderness. Skin: Warm, dry with normal turgor. Normal color with no rashes, no lesions, and no evidence of cellulitis. MS/ Extremity: Pulses equal, no cyanosis. Neurovascular intact. Full, normal range of motion. Neuro: Awake and alert, GCS 15, oriented to person, place, time, and situation. Cranial nerves II-XII grossly intact. Motor strength 5/5 in all extremities. Sensory grossly intact. Psych: Awake, alert, with orientation to person, place and time. Behavior, mood, and affect are within normal limits Vital Signs: 00:55 Pulse 112; Resp 15; Temp 98.2(TE); Pulse Ox 98% on R/A; Weight 86.18 kg; Height 4 ft. kd3 11 in. ; 00:57 BP 129 / 89; kd3 02:00 BP 115 / 68; Pulse 80; Resp 16; Pulse Ox 97% ; vc1 03:30 BP 125 / 79; Pulse 82; Resp 17; Pulse Ox 98% ; vc1 00:55 Body Mass Index 38.37 (86.18 kg, 149.86 cm) kd3 MDM: 01:03 Patient medically screened. sp4 03:32 Differential Diagnosis altered mental status, For abdominal pain, colitis, enteritis, sp4 ovarian cyst. Data reviewed: vital signs, nurses notes, old medical records, lab test result(s), radiologic studies, CT scan. Consideration of Admission/Observation Escalation of care including admission/observation considered. ED course: CT revealed no acute findings and abdominal pelvis. No evidence of pyelonephritis. There is corpus luteum cyst on the left ovary.. 04/15 01:13 Order name: CBC with Diff; Complete Time: 03:44 sp4 04/15 01:13 Order name: CMP; Complete Time: 03:00 sp4 04/15 01:13 Order name: Lipase; Complete Time: 03:00 4 04/15 01:13 Order name: Test, Urine; Complete Time: 03:00 4 04/15 01:13 Order name: Urinalysis w/ reflexes; Complete Time: 03:00 sp4 04/15 02:27 Order name: CBC Smear Scan; Complete Time: 03:44 EDPA 04/15 01:13 Order name: CT Abd/Pelvis - IV Contrast Only 4 04/15 01:13 Order name: IV Saline Lock; Complete Time: 02:02 sp4 04/15 01:13 Order name: Labs collected and sent; Complete Time: 01:42 sp4 Administered Medications: 02:02 Drug: NS 0.9% IV 1000 ml Route: IV; Rate: 1 bolus; Site: right antecubital; vc1 03:42 Follow up: IV Status: Completed infusion; IV Intake: 1000ml vc1 02:02 Drug: TORadol - Ketorolac IVP 15 mg Route: IVP; Site: right antecubital; vc1 02:30 Follow up: Response: No adverse reaction; Marked relief of symptoms vc1 02:02 Drug: morphine IVP or IV 4 mg Route: IVP; Infused Over: 4 mins; Site: right antecubital;vc1 02:30 Follow up: Response: No adverse reaction; Marked relief of symptoms; Pain is decreased vc1 02:02 Drug: Cyclobenzaprine PO 10 mg Route: PO; vc1 02:30 Follow up: Response: No adverse reaction; Marked relief of symptoms; Pain is decreased vc1 02:02 Drug: Ondansetron IVP 4 mg Route: IVP; Site: left antecubital; vc1 02:30 Follow up: Response: No adverse reaction; Marked relief of symptoms; Pain is decreased vc1 03:39 Drug: [place] PO 10 mg-325 mg 1 tabs Route: PO; vc1 03:43 Follow up: Response: Medication administered at discharge. vc1 03:39 Drug: Promethazine PO 25 mg Route: PO; vc1 03:43 Follow up: Response: Medication administered at discharge. vc1 Disposition Summary: 04/15/23 03:40 Discharge Ordered Location: Home sp4 Problem: new sp4 Symptoms: have improved sp4 Condition: Stable sp4 Diagnosis - Other and unspecified ovarian cysts sp4 - Corpus luteum cyst of left ovary sp4 - Pelvic and perineal pain sp4 Followup: sp4 - With: Private Physician - When: 7 - 10 days - Reason: Recheck today's complaints Discharge Instructions: - Discharge Summary Sheet vc1 - Ovarian Cyst sp4 Forms: - Family Work Release vc1 Prescriptions: - naproxen 250 mg Oral tablet - take 0.5 tablet by ORAL route every 12 hours PRN pain; 60 tablet; Refills: 0, sp4 Product Selection Permitted - ondansetron 4 mg Oral Tablet,disintegrating - take 1 tablet by ORAL route every 6 hours; 20 tablet; Refills: 0, Product sp4 Selection Permitted - Tramadol 50 mg Oral Tablet - take 1 tablet by ORAL route every 8 hours as needed; 12 tablet; Refills: 0, sp4 Product Selection Permitted Signatures: Dispatcher [employer] Xiomara Ring RN RN kd3 Ally Coulter RN RN vc1 Jameel Jaime MD MD sp4 Corrections: (The following items were deleted from the chart) 01:00 00:58 Allergies: Azithromycin; kd3 kd3
[2023-04-15 03:42] LABS: Blood Morphology Comment NOTED (NOT SEEN); Ovalocytes 1+; Platelet Estimate ADEQ; Teardrop Cell 1+; White Blood Cell Scan OK (OK)
[2023-04-15] MEDS ORDERED: HYDROCODONE/APAP 10/325 TAB ONE (03:43)
[2023-04-15] MEDS ORDERED: PROMETHAZINE 25 MG TABLET ONE (03:43)
[2023-04-15 03:58] VITALS: TEMP 98.2
[2023-04-15 04:02] VITALS: BP 125/79; O2SAT 98
--- NOTE | 2023-04-15 11:56 | RAD REPORT ---
EXAM DESCRIPTION: CT - Abdomen Pelvis W Contrast - 04/15/2023 6:19 am CLINICAL HISTORY: The patient is 23 years old and is Female; ABD PAIN TECHNIQUE: Axial computed tomography images of the abdomen and pelvis with intravenous contrast. S agittal and coronal reformatted images were created and reviewed. This CT exam was performed using one or more of the following dose reduction techniques: automated exposure control, adjustment of t he mA and/or kV according to patient size, and/or use of iterative reconstruction technique. COMPARISON: No relevant prior studies available. FINDINGS: Lung bases: Unremarkable. No mass. No consolidation. ABDOMEN: Liver: Unremarkable. No mass. Gallbladder and bile ducts: Gallbladder is surgically absent. No ductal dilation. Pancreas: Unremarkable. No mass. No ductal dilation. Spleen: Unremarkable. No splenomegaly. Adrenals: Unremarkable. No mass. Kidneys and ureters: Unremarkable. No solid mass. No hydronephrosis. Stomach and bowel: Unremarkable. No obstruction. No mucosal thickening. PELVIS: Appendix: Suggestion of prior appendectomy. Bladder: Unremarkable. Reproductive: Corpus luteum cyst in the left ovary. ABDOMEN and PELVIS: Intraperitoneal space: Unremarkable. No free air. No significant fluid collection. Bones/joints: No acute fracture. No dislocation. Soft tissues: Unremarkable. Vasculature: Unremarkable. No abdominal aortic aneurysm. Lymph nodes: Unremarkable. No enlarged lymph nodes. IMPRESSION: No acute finding in the abdomen/pelvis. No evidence of pyelonephritis. Electronically signed by: Shun Abarca MD 04/15/2023 3:24 AM CDT Due to temporary technical issues with the PACS/Fluency reporting system, reports are being signed by the in house radiologist without review as a courtesy to ensure prompt reporting. The interpreting r adiologist is fully responsible for the content of the report.
== END 2023-04-15 03:52 | disposition home or self-care (01) ==
LOC: ER 00:21
DX: N83.12 Corpus luteum cyst of left ovary (principal); N83.299 Other ovarian cyst, unspecified side; Z88.1 Allergy status to other antibiotic agents; Z88.8 Allergy status to other drugs, medicaments and biological substances
CPT/HCPCS: 85025; 81001; 36415; 81025; 83690; 80053; 74177; 99284; Q9967; Q0169; J2405; J7030

== ENCOUNTER 2023-05-06 02:38 | Emergency (ER) | payer BC ==
[2023-05-06] MEDS ORDERED: LEVALBUTEROL 1.25 MG/3 ML NEB ONE ×2 (03:36→05:21)
[2023-05-06] MEDS ORDERED: FAMOTIDINE 20 MG/2 ML VIAL IV ONE (03:36)
[2023-05-06] MEDS ORDERED: METHYLPREDNISOLONE 125 MG INJ ONE (03:36)
[2023-05-06 03:54] LABS: Absolute Lymphocytes (CBC) 1.6 K/uL (0.7-4.9); Hematocrit 36.6 % (36.0-45.0); Lymphocytes % 21.4 % (15.3-44.8); MCV 86.5 fL (80-100); MPV 8.9 fL (7.6-11.3); RBC Red Blood Cell Count 4.23 M/uL (3.86-4.86)
[2023-05-06 04:10] LABS: ALT/SGPT 37 U/L (13-56); AST/SGOT 16 U/L (15-37); Albumin 3.8 g/dL (3.4-5.0); Alkaline Phosphatase 56 U/L (45-117); BUN Blood Urea Nitrogen 10 mg/dL (7-18); Bicarbonate 21 mEq/L (21-32); Bilirubin Total 0.3 mg/dL (0.2-1.0); Glomerular Filtration Rate 87 ml/min (=/>90); Glucose Level 114 mg/dL (74-106); Magnesium 1.7 mg/dL (1.6-2.4); NT PRO-BNP 14 pg/mL (<125); Protein, Total 6.9 g/dL (6.4-8.2); Sodium Level 139 mEq/L (136-145)
[2023-05-06 04:19] LABS: Bilirubin Direct < 0.1 mg/dL (0-0.2); Bilirubin Indirect, Calculated ND mg/dL (0.2-0.8); Troponin High Sensitivity < 3.0 pg/mL (<58.9)
[2023-05-06] MEDS ORDERED: POTASSIUM CL SA 10 MEQ TAB PO ONE (05:21)
--- NOTE | 2023-05-06 05:29 | EDPHYS ---
Physician Documentation [facility] Name: Adelaide Trinidad Age: 23 yrs Sex: Female : 2000 Arrival Date: 05/06/2023 Time: 02:38 Bed 15 Private MD: ED Physician Luis Odell HPI: 05/06 08:11 This 23 yrs old Female presents to ER via Ambulatory with complaints of Breathing kdr Difficulty, Shortness Of Breath. 08:11 Patient presents the ED short of breath and wheezing since Saturday. Patient uses her kdr inhaler (hand-held nebulizer) some 10 times during the day and then 2 times more at home without relief. She states she feels like there is a pressure on her chest. Patient is otherwise stable in the ED. She is nontoxic-appearing. Onset: The symptoms/episode began/occurred suddenly, yesterday. Severity of symptoms: At their worst the symptoms were mild moderate just prior to arrival, in the emergency department the symptoms are unchanged. The patient has not experienced similar symptoms in the past. The patient has not recently seen a physician. 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 Last tetanus immunization: < 10 years ago Flu vaccine is not up to date. - Social history:: Smoking status: Patient denies any tobacco usage or history of. Patient/guardian denies using alcohol, street drugs. ROS: 08:11 Constitutional: Negative for fever, chills, and weight loss, Eyes: Negative for injury, kdr pain, redness, and discharge, ENT: Negative for injury, pain, and discharge, Neck: Negative for injury, pain, and swelling, Abdomen/GI: Negative for abdominal pain, nausea, vomiting, diarrhea, and constipation, Back: Negative for injury and pain, : Negative for injury, bleeding, discharge, and swelling, MS/Extremity: Negative for injury and deformity, Skin: Negative for injury, rash, and discoloration, Neuro: Negative for headache, weakness, numbness, tingling, and seizure activity. Psych: Negative for depression, anxiety, suicide ideation, homicidal ideation, and hallucinations, Allergy/Immunology: Negative for hives, rash, and allergies, Endocrine: Negative for neck swelling, polydipsia, polyuria, polyphagia, and marked weight changes, Hematologic/Lymphatic: Negative for swollen nodes, abnormal bleeding, and unusual bruising. 08:11 Cardiovascular: Positive for chest pain, palpitations, Negative for edema, orthopnea. 08:11 Respiratory: Positive for cough, shortness of breath, wheezing, Negative for dyspnea on exertion, hemoptysis, orthopnea, pleurisy. Exam: 08:11 Constitutional: This is a well developed, well nourished patient who is awake, alert, kdr and in no acute distress. Head/Face: Normocephalic, atraumatic. Eyes: Pupils equal round and reactive to light, extra-ocular motions intact. Lids and lashes normal. Conjunctiva and sclera are non-icteric and not injected. Cornea within normal limits. Periorbital areas with no swelling, redness, or edema. Neck: Trachea midline, no thyromegaly or masses palpated, and no cervical lymphadenopathy. Supple, full range of motion without nuchal rigidity, or vertebral point tenderness. No Meningismus. Chest/axilla: Normal chest wall appearance and motion. Nontender with no deformity. No lesions are appreciated. Cardiovascular: Regular rate and rhythm with a normal S1 and S2. No gallops, murmurs, or rubs. Normal PMI, no JVD. No pulse deficits. Abdomen/GI: Soft, non-tender, with normal bowel sounds. No distension or tympany. No guarding or rebound. No evidence of tenderness throughout. Back: No spinal tenderness. No costovertebral tenderness. Full range of motion. Skin: Warm, dry with normal turgor. Normal color with no rashes, no lesions, and no evidence of cellulitis. MS/ Extremity: Pulses equal, no cyanosis. Neurovascular intact. Full, normal range of motion. Neuro: Awake and alert, GCS 15, oriented to person, place, time, and situation. Cranial nerves II-XII grossly intact. Motor strength 5/5 in all extremities. Sensory grossly intact. Cerebellar exam normal. Normal gait. Psych: Awake, alert, with orientation to person, place and time. Behavior, mood, and affect are within normal limits. 08:11 Respiratory: mild respiratory distress is noted, Respirations: labored breathing, that is mild, Breath sounds: rales, bronchial sounds, rhonchi, that are moderate, wheezing: Vital Signs: 02:50 BP 129 / 79; Pulse 111; Resp 22; Temp 98.2; Pulse Ox 100% ; Weight 86.18 kg; Height 4 vc1 ft. 11 in. ; Pain 0/10; 04:00 BP 108 / 63; Pulse 103; Resp 20; Pulse Ox 100% ; vc1 05:00 BP 123 / 79; Pulse 97; Resp 20; Pulse Ox 100% ; vc1 06:00 BP 134 / 87; Pulse 119; Resp 20; Pulse Ox 100% ; vc1 02:50 Body Mass Index 38.37 (86.18 kg, 149.86 cm) vc1 02:50 Pain Scale: Adult vc1 MDM: 05:29 Patient medically screened. [facility] 08:11 Data reviewed: vital signs, nurses notes, lab test result(s), radiologic studies. [facility] 05/06 02:51 Order name: Basic Metabolic Panel; Complete Time: 05:08 [facility] 05/06 02:51 Order name: CBC with Diff; Complete Time: 03:59 [facility] 05/06 02:51 Order name: D-Dimer; Complete Time: 03:59 [facility] 05/06 02:51 Order name: LFT's; Complete Time: 05:08 [facility] 05/06 02:51 Order name: Magnesium; Complete Time: 05:08 [facility] 05/06 02:51 Order name: NT PRO-BNP; Complete Time: 05:08 [facility] 05/06 02:51 Order name: Troponin HS; Complete Time: 05:08 [facility] 05/06 02:51 Order name: XRAY Chest (1 view) kdr 05/06 02:51 Order name: EKG; Complete Time: 02:52 [facility] 05/06 02:51 Order name: Cardiac monitoring; Complete Time: 03:13 [facility] 05/06 02:51 Order name: EKG - Nurse/Tech; Complete Time: 03: kdr 05/06 02:51 Order name: IV Saline Lock; Complete Time: 03: kdr 05/06 02:51 Order name: Labs collected and sent; Complete Time: 03: kdr 05/06 02:51 Order name: O2 Per Protocol; Complete Time: 03: kdr 05/06 02:51 Order name: O2 Sat Monitoring; Complete Time: 03: kdr Administered Medications: 03:34 Drug: MethylPrednisoLONE IVP 125 mg Route: IVP; Site: right antecubital; vc1 03:34 Drug: Levalbuterol Inhalation 1.25 mg Route: Inhalation; vc1 03:34 Drug: Famotidine IVP 20 mg Route: IVP; Site: right antecubital; vc1 05:19 Drug: Potassium Chloride PO 60 mEq Route: PO; vc1 05:19 Drug: Levalbuterol Inhalation 1.25 mg Route: Inhalation; vc1 Disposition Summary: 05/06/23 05:29 Discharge Ordered Location: Home kdr Problem: an acute exacerbation kdr Symptoms: have improved kdr Condition: Stable kdr Diagnosis - Shortness of breath kdr - Moderate persistent asthma kdr - Hypokalemia kdr Followup: kdr - With: Private Physician - When: 2 - 3 days - Reason: If symptoms return, Further diagnostic work-up, Recheck today's complaints, Continuance of care, Re-evaluation by your physician Discharge Instructions: - Discharge Summary Sheet kdr - Shortness of Breath, Adult, [id number] kdr - Cough, Adult, [id number] kdr Forms: - Medication Reconciliation Form kdr - Thank You Letter kdr - [email or web address] kdr Prescriptions: - Medrol (Brandt) 4 mg Oral Tablets, Dose Pack - take 1 tablet by ORAL route as directed - follow package instructions; 1 kdr packet; Refills: 0, Product Selection Permitted Signatures: Dispatcher [employer] Luis Beal MD MD kdr Ally Coulter RN RN vc1
--- NOTE | 2023-05-06 05:29 | ER ---
Nurse's Notes [facility] Name: Adelaide Trinidad Age: 23 yrs Sex: Female : 2000 Arrival Date: 05/06/2023 Time: 02:38 Bed 15 Private MD: Diagnosis: Shortness of breath;Moderate persistent asthma;Hypokalemia Presentation: 05/06 02:50 Chief complaint: Patient states: Shortness of breath and wheezing since Saturday vc1 afternoon, used albuterol inhaler 10 times and neb 2 times with no relief. 02:50 Coronavirus screen: Vaccine status: Patient reports being unvaccinated. Client denies vc1 travel out of the [place] in the last 14 days. At this time, the client does not indicate any symptoms associated with coronavirus-19. Ebola Screen: Patient negative for fever greater than or equal to 101.5 degrees Fahrenheit, and additional compatible Ebola Virus Disease symptoms Patient denies exposure to infectious person. Patient denies travel to an Ebola-affected area in the 21 days before illness onset. No symptoms or risks identified at this time. Initial Sepsis Screen: Does the patient meet any 2 criteria? RR > 20 per min. HR > 90 bpm. Yes Does the patient have a suspected source of infection? No. Patient's initial sepsis screen is negative. Risk Assessment: Do you want to hurt yourself or someone else? Patient reports no desire to harm self or others. Onset of symptoms was May 05, 2023. 02:50 Method Of Arrival: Ambulatory vc1 02:50 Acuity: LUIZ 3 vc1 Triage Assessment: 02:50 General: Appears distressed, uncomfortable, Behavior is calm, cooperative, appropriate vc1 for age. Pain: Denies pain. EENT: No deficits noted. No signs and/or symptoms were reported regarding the EENT system. Neuro: Level of Consciousness is awake, alert, obeys commands, Oriented to person, place, time, situation, Appropriate for age. Cardiovascular: No deficits noted. Respiratory: Reports shortness of breath labored breathing Airway is patent Respiratory effort is even, labored, Respiratory pattern is regular, tachypnea Onset: The symptoms/episode began/occurred yesterday, the patient has moderate shortness of breath. GI: No deficits noted. No signs and/or symptoms were reported involving the gastrointestinal system. : No deficits noted. No signs and/or symptoms were reported regarding the genitourinary system. Derm: No deficits noted. No signs and/or symptoms reported regarding the dermatologic system. Musculoskeletal: No deficits noted. No signs and/or symptoms reported regarding the musculoskeletal system. 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 Last tetanus immunization: < 10 years ago Flu vaccine is not up to date. - Social history:: Smoking status: Patient denies any tobacco usage or history of. Patient/guardian denies using alcohol, street drugs. Screenin:50 [facility] ED Fall Risk Assessment (Adult) History of falling in the last 3 months, vc1 including since admission No falls in past 3 months (0 pts) Confusion or Disorientation No (0 pts) Intoxicated or Sedated No (0 pts) Impaired Gait No (0 pts) Mobility Assist Device Used No (0 pt) Altered Elimination No (0 pt) Score/Fall Risk Level 0 - 2 = Low Risk Oriented to surroundings, Maintained a safe environment, Educated pt \T\ family on fall prevention, incl call for assistance when getting out of bed. Abuse screen: Denies threats or abuse. Nutritional screening: No deficits noted. Tuberculosis screening: No symptoms or risk factors identified. Assessment: 03:00 General: Appears distressed, uncomfortable, Behavior is cooperative, appropriate for vc1 age. Pain: Denies pain. Neuro: Level of Consciousness is awake, alert, obeys commands, Oriented to person, place, time, situation, Appropriate for age. Cardiovascular: Rhythm is sinus rhythm. Respiratory: Airway is patent Respiratory effort is even, labored, Respiratory pattern is symmetrical, Breath sounds with wheezes bilaterally. GI: No deficits noted. No signs and/or symptoms were reported involving the gastrointestinal system. : No deficits noted. No signs and/or symptoms were reported regarding the genitourinary system. EENT: No deficits noted. No signs and/or symptoms were reported regarding the EENT system. Derm: No deficits noted. No signs and/or symptoms reported regarding the dermatologic system. 04:00 Reassessment: No changes from previously documented assessment. Patient and/or family vc1 updated on plan of care and expected duration. Pain level reassessed. Patient is alert, oriented x 3, equal unlabored respirations, skin warm/dry/pink. 05:00 Reassessment: No changes from previously documented assessment. Patient and/or family vc1 updated on plan of care and expected duration. Pain level reassessed. Patient is alert, oriented x 3, equal unlabored respirations, skin warm/dry/pink. 05:40 Reassessment: PT heart rate jumped up to 133 during neb treatment pt stated she felt vc1 funny. Neb stopped provider notified. 06:30 Reassessment: Pt feels back to normal heart rate down. Ok to discharge. vc1 Vital Signs: 02:50 BP 129 / 79; Pulse 111; Resp 22; Temp 98.2; Pulse Ox 100% ; Weight 86.18 kg; Height 4 vc1 ft. 11 in. ; Pain 0/10; 04:00 BP 108 / 63; Pulse 103; Resp 20; Pulse Ox 100% ; vc1 05:00 BP 123 / 79; Pulse 97; Resp 20; Pulse Ox 100% ; vc1 06:00 BP 134 / 87; Pulse 119; Resp 20; Pulse Ox 100% ; vc1 02:50 Body Mass Index 38.37 (86.18 kg, 149.86 cm) vc1 02:50 Pain Scale: Adult vc1 ED Course: 02:39 Patient arrived in ED. ja2 02:50 Arm band placed on right wrist. vc1 02:50 Bed in low position. Call light in reach. Client placed on continuous cardiac and pulse vc1 oximetry monitoring. NIBP monitoring applied. 02:51 Luis Odell MD is Attending Physician. kdr 03:06 XRAY Chest (1 view) In Process Unspecified. EDMS 03:10 Calcote, Ally, RN is Primary Nurse. vc1 03:15 Inserted saline lock: 20 gauge in right antecubital area, using aseptic technique. vc1 ,using aseptic technique. Ultrasound guided Blood collected. 03:40 Triage completed. vc1 06:46 No provider procedures requiring assistance completed. IV discontinued, intact, vc1 bleeding controlled, No redness/swelling at site. Pressure dressing applied. Administered Medications: 03:34 Drug: MethylPrednisoLONE IVP 125 mg Route: IVP; Site: right antecubital; vc1 03:34 Drug: Levalbuterol Inhalation 1.25 mg Route: Inhalation; vc1 03:34 Drug: Famotidine IVP 20 mg Route: IVP; Site: right antecubital; vc1 05:19 Drug: Potassium Chloride PO 60 mEq Route: PO; vc1 05:19 Drug: Levalbuterol Inhalation 1.25 mg Route: Inhalation; vc1 Medication: 03:43 VIS not applicable for this client. vc1 Outcome: 05:29 Discharge ordered by . kdr 06:46 Discharged to home ambulatory. vc1 06:46 Condition: good 06:46 Discharge instructions given to patient, Instructed on discharge instructions, follow up and referral plans. medication usage, Demonstrated understanding of instructions, follow-up care, medications, Prescriptions given X 1. 06:46 Patient left the ED. vc1 Signatures: Dispatcher [employer] EDMS Luis Odell MD MD kdr Alexander, Jessica ja2 Calcote, Vanessa, RN RN vc1
[2023-05-06 07:05] VITALS: TEMP 98.2; O2SAT 100
[2023-05-06 07:12] VITALS: BP 134/87
--- NOTE | 2023-05-06 17:10 | EKG ---
Test Date: 2023-05-06 Test Time: 03:07:40 Front Desk: FLORIAN MEASUREMENT RESULTS: Intervals: Rate: 119 TN: 144 QRSD: 78 QT: 312 QTc: 438 [place]: P: 65 TN: 144 QRS: 64 T: 0 INTERPRETIVE STATEMENTS: Sinus tachycardia Otherwise normal ECG No previous ECG available for comparison Electronically Signed On 05-06-23 17:09:34 CDT by Renato Cook
--- NOTE | 2023-05-07 10:39 | RAD REPORT ---
EXAM DESCRIPTION: RAD - Chest Single View - 05/06/2023 3:05 am CLINICAL HISTORY: 23 years Female CHEST PAIN COMPARISON: Chest x-ray 12/18/2022 FINDINGS: Lung volumes adequate. Cardiac silhouette is normal in size. No pneumothorax. No large pleural effusion. No focal consolidation. No acute bony finding. IMPRESSION: No acute cardiopulmonary findings. Electronically signed by: Daphne Gonzalez MD 05/06/2023 3:25 AM CDT Due to temporary technical issues with the PACS/Fluency reporting system, reports are being signed by the in house radiologists without review as a courtesy to insure prompt reporting. The interpreting radiologist is fully responsible for the content of the report.
== END 2023-05-06 06:46 | disposition home or self-care (01) ==
LOC: ER 02:38
DX: J45.40 Moderate persistent asthma, uncomplicated (principal); E87.6 Hypokalemia; E03.9 Hypothyroidism, unspecified; F41.9 Anxiety disorder, unspecified; Z88.1 Allergy status to other antibiotic agents
CPT/HCPCS: 93005; 85025; 80048; 36415; 83735; 85379; 80076; 84484; 83880; 71045; 96375; 96374; 99285; J7614 ×2; J2930

== ENCOUNTER 2023-05-10 05:13 | Emergency (ER) | payer BC ==
[2023-05-10] MEDS ORDERED: MORPHINE 4 MG/ML SYR ONE ×3 (05:37→08:57)
[2023-05-10 06:27] LABS: Absolute Lymphocytes (CBC) 1.2 K/uL (0.7-4.9); Hematocrit 37.6 % (36.0-45.0); Lymphocytes % 12.6 % (15.3-44.8); MCV 86.8 fL (80-100); MPV 8.6 fL (7.6-11.3); RBC Red Blood Cell Count 4.33 M/uL (3.86-4.86)
[2023-05-10 06:39] LABS: C-Reactive Protein 3.83 mg/L (<3.00); Potassium 3.6 mEq/L (3.5-5.1)
[2023-05-10] MEDS ORDERED: KETOROLAC 30 MG/ML INJ ONE (07:37)
[2023-05-10] MEDS ORDERED: dexAMETHasone 10 MG/ML VIAL ONE (07:37)
--- NOTE | 2023-05-10 07:58 | RAD REPORT ---
EXAM DESCRIPTION: CT - Hip Right W Con - 05/10/2023 7:12 am CLINICAL HISTORY: hip pain COMPARISON: Hip Right 2 View dated 05/10/2023; Lumbar Spine 3 Views dated 05/10/2023; Abdomen Pelvis W Contrast dated 04/15/2023 TECHNIQUE: Thin cut axial CT imaging of the right hip was performed following intravenous administra tion of 100 mL Isovue 300. Multiplanar reformats were generated and reviewed. All CT scans are performed using dose optimization technique as appropriate and may include automated exposure control or mA/KV adjustment according to patient size. FINDINGS: No acute fracture. No suspicious osseous focal lesions. Right hip joint is well aligned. Mild joint space narrowing of the hip joint superiorly subchondral c ystic changes with osseous remodeling along the acetabular margin and superior acetabular articular s urface. Small right hip joint effusion. 3 millimeter mineralized focus along the anterior periarticular soft tissues, image / series 208, could relate to sequelae of prior injury or partial tearing either a long the hip joint capsule, iliofemoral ligament, or rectus femoris origin. Non fusion of the pubic symphysis apophyses. This could relate to underlying inflammation, or could b e developmental. Mild degenerative changes along the right sacroiliac joint, with some subchondral cy stic changes as well. The visualized pelvic structures and thigh musculature are unremarkable. A small left inguinal fat co ntaining hernia is incidentally noted. IMPRESSION: Mild right femoroacetabular joint space narrowing with mild effusion. Up to moderate oss eous remodeling with subchondral cystic changes along the acetabular margin and superior acetabular a rticular surface. Findings may relate to accelerated degenerative osteoarthritis, other etiologies of inflammatory arthritis should be considered. 3 millimeter mineralized focus within the anterior right hip periarticular soft tissues, suggestive o f sequelae of prior injury or partial tearing as above. Non fusion of the pubic symphysis apophyses. Mild degenerative changes along the right sacroiliac catherine nt.
--- NOTE | 2023-05-10 08:27 | RAD REPORT ---
EXAM DESCRIPTION: RAD - Hip Right 2 View - 05/10/2023 6:11 am CLINICAL HISTORY: PAIN Hip Right 2 View COMPARISON: None. FINDINGS: 2 views of the right hip. No acute fracture or dislocation. Normal osseous mineralization. IMPRESSION: 1. No acute fracture or dislocation. Electronically signed by: Adam Dow 05/10/2023 6:25 AM CDT Due to temporary technical issues with the PACS/Fluency reporting system, reports are being signed by the in house radiologists without review as a courtesy to insure prompt reporting. The interpreting radiologist is fully responsible for the content of the report.
--- NOTE | 2023-05-10 08:29 | RAD REPORT ---
EXAM DESCRIPTION: RAD - Lumbar Spine 3 Views - 05/10/2023 6:11 am CLINICAL HISTORY: PAIN COMPARISON: None. FINDINGS: 3 views of the lumbar spine. Pedicles identified throughout. No acute cortical step-off or subluxation. Vertebral body height and intervertebral disc height preserved. Normal osseous minerali zation. Prior cholecystectomy. Moderate amount stool. IMPRESSION: No acute abnormality of the lumbar spine by plain film criteria. Electronically signed by: Adam Dow 05/10/2023 6:27 AM CDT Due to temporary technical issues with the PACS/Fluency reporting system, reports are being signed by the in house radiologists without review as a courtesy to insure prompt reporting. The interpreting radiologist is fully responsible for the content of the report.
--- NOTE | 2023-05-10 08:35 | ER ---
Nurse's Notes [facility] Name: Adelaide Trinidad Age: 23 yrs Sex: Female : 2000 Arrival Date: 05/10/2023 Time: 05:13 Bed 6 Private MD: Diagnosis: Pain in right hip;Effusion of joint-RIGHT HIP, SMALL Presentation: 05/10 05:16 Chief complaint: EMS states: pain on the right hip since yesterday. pain progressively rv worse until tonight. unable to tolerate despite taking motrin and tramadol at home. had sx on the right hip december 2020. Coronavirus screen: Vaccine status:. Ebola Screen: Patient negative for fever greater than or equal to 101.5 degrees Fahrenheit, and additional compatible Ebola Virus Disease symptoms Patient denies exposure to infectious person. Patient denies travel to an Ebola-affected area in the 21 days before illness onset. Initial Sepsis Screen: Does the patient meet any 2 criteria? No. Patient's initial sepsis screen is negative. Does the patient have a suspected source of infection? No. Patient's initial sepsis screen is negative. Risk Assessment: Do you want to hurt yourself or someone else? Patient reports no desire to harm self or others. Onset of symptoms was May 09, 2023. 05:16 Method Of Arrival: EMS: [facility] rv 05:16 Acuity: LUIZ 4 rv Triage Assessment: 05:20 General: Appears uncomfortable, Behavior is calm, cooperative. Pain: Complains of pain rv in right hip Pain currently is 10 out of 10 on a pain scale. Neuro: Wolff Agitation-Sedation Scale (RASS): Level of Consciousness is awake, alert, obeys commands, Oriented to person, place, time, situation. Cardiovascular: Patient's skin is warm and dry. Respiratory: Airway is patent Respiratory effort is even, unlabored. Derm: Skin is intact. Historical: - Allergies: 05:19 Bactrim; rv 05:19 Zithromax; rv 05:19 Zosyn in dextrose (iso-osm); rv - Home Meds: 05:19 Ativan 1 mg Oral tablet 1 tab Every other day [Active]; Cymbalta 30 mg Oral rv capsule,delayed release (e.c.) daily [Active]; levothyroxine 75 mcg capsule once [Active]; - PMHx: 05:19 Anxiety; Asthma; Depression; HYPOGLYCEMIA; Hypothyroidism; scoliosis; rv - Immunization history:: Adult Immunizations up to date. - Social history:: Smoking status: Patient denies any tobacco usage or history of. - Family history:: not pertinent. - Hospitalizations: : No recent hospitalization is reported. Screenin:20 [facility] ED Fall Risk Assessment (Adult) History of falling in the last 3 months, rv including since admission No falls in past 3 months (0 pts) Confusion or Disorientation No (0 pts) Intoxicated or Sedated No (0 pts) Impaired Gait No (0 pts) Mobility Assist Device Used No (0 pt) Altered Elimination No (0 pt) Score/Fall Risk Level 0 - 2 = Low Risk Oriented to surroundings, Maintained a safe environment, Educated pt \T\ family on fall prevention, incl call for assistance when getting out of bed, Assessed \T\ reinforced patient's understanding of fall precautions, Provided non-skid footwear, Hourly rounding (assess needs \T\ fall precautionary measures) done, Used ambulatory aids as needed (educated on \T\ assisted with), Used gait belt as appropriate. Abuse screen: Denies threats or abuse. Denies injuries from another. Nutritional screening: No deficits noted. Tuberculosis screening: No symptoms or risk factors identified. Assessment: 07:30 General: Appears in no apparent distress. comfortable, Behavior is calm, cooperative, ph appropriate for age. Pain: Complains of pain in right hip. Neuro: Level of Consciousness is awake, alert, obeys commands, Oriented to person, place, time, situation. Cardiovascular: Capillary refill < 3 seconds in bilateral fingers Patient's skin is warm and dry. Respiratory: Airway is patent Respiratory effort is even, unlabored, Respiratory pattern is regular, symmetrical. Derm: Skin is pink, warm \T\ dry. 09:34 Reassessment: Patient appears in no apparent distress at this time. Patient and/or ph family updated on plan of care and expected duration. Pain level reassessed. Patient is alert, oriented x 3, equal unlabored respirations, skin warm/dry/pink. Vital Signs: 05:16 BP 123 / 82; Pulse 109; Resp 18; Temp 98.8; Pulse Ox 100% ; Weight 86.18 kg; Height 4 rv ft. 11 in. ; Pain 10/10; 08:16 BP 126 / 80; Pulse 108; Resp 16; Pulse Ox 99% ; ss 09:35 BP 118 / 78; Pulse 98; Resp 18; Temp 97.9; Pulse Ox 99% on R/A; ph 05:16 Body Mass Index 38.37 (86.18 kg, 149.86 cm) rv 05:16 Pain Scale: Adult rv ED Course: 05:15 Patient arrived in ED. rv 05:16 Steven Arita MD is Attending Physician. rn 05:18 Triage completed. rv 05:20 Arm band placed on right wrist. rv 05:21 Patient has correct armband on for positive identification. Provided Education on: pain rv management. 05:21 No provider procedures requiring assistance completed. rv 05:26 Clemente Dodson, JAZ is Primary Nurse. rv 05:32 Maintain EMS IV. Dressing intact. Good blood return noted. Site clean \T\ dry. Gauge \T\ rv site: g20 lac. 06:13 XRAY Hip RIGHT 2 view In Process Unspecified. EDMS 06:13 XRAY Lumbar Spine (3 Views) In Process Unspecified. EDMS 07:05 Attending Physician role handed off by Steven Arita MD antionette 07:05 Juan A Louie MD is Attending Physician. antionette 07:14 Hip Right W Con In Process Unspecified. EDMS 07:53 Blood Culture Adult (2) Sent. ph 08:33 Cristino Justin MD is Referral Physician. antionette 09:36 IV discontinued, intact, bleeding controlled, No redness/swelling at site. Pressure ph dressing applied. Administered Medications: 05:32 Not Given (Duplicate Order): morphine IM 4 mg IM once rv 05:32 Drug: morphine IVP or IV 4 mg Route: IVP; Infused Over: 4 mins; Site: left antecubital; rv 06:15 Drug: morphine IVP or IV 4 mg Route: IVP; Infused Over: 4 mins; Site: left antecubital; rv 07:53 Drug: Decadron - Dexamethasone IVP 10 mg Route: IVP; Site: left antecubital; ph 09:36 Follow up: Response: No adverse reaction ph 07:53 Not Given (given by EMS CADASTRAL ENGINEER): Ketorolac IVP 30 mg IVP once ph 09:05 Drug: morphine IVP or IV 4 mg Route: IVP; Infused Over: 4 mins; Site: left antecubital; ph 09:36 Follow up: Response: No adverse reaction; Pain is decreased; RASS: Alert and Calm (0) ph 09:05 Drug: Ondansetron IVP 4 mg Route: IVP; Site: left antecubital; ph 09:36 Follow up: Response: No adverse reaction ph Medication: 05:21 VIS not applicable for this client. rv Outcome: 08:35 Discharge ordered by . antionette 09:35 Discharged to home with crutches, with family, with significant other. ph 09:35 Condition: good 09:35 Discharge instructions given to patient, Instructed on discharge instructions, follow up and referral plans. medication usage, Demonstrated understanding of instructions, follow-up care, medications, Prescriptions given X 4. 09:36 Patient left the ED. ph Signatures: Dispatcher [employer] EDJuan A Alexander MD MD cha Nieto, Roman, MD MD rn Blanchard, Shelby, RN RN Lainey Guzmán RN RN ph Vicente, Ronaldo RN RN rv
--- NOTE | 2023-05-10 08:35 | EDPHYS ---
Physician Documentation [facility] Name: Adelaide Trinidad Age: 23 yrs Sex: Female : 2000 Arrival Date: 05/10/2023 Time: 05:13 Bed 6 Private MD: MYLES Physician Juan A Louie HPI: 05/10 05:32 This 23 yrs old Female presents to ER via EMS with complaints of right hip pain. rn 05:32 The patient or guardian reports pain. The complaints affect the right hip. Onset: The rn symptoms/episode began/occurred yesterday. Modifying factors: The symptoms are alleviated by remaining still, the symptoms are aggravated by any movement. Severity of symptoms: At their worst the symptoms were moderate, in the emergency department the symptoms are unchanged. The patient has experienced similar episodes in the past. The patient has been recently seen at an urgent care. Pt reports right hip pain, was sore yesterday during work, got worse this AM, hurts to move it. No trauma. Has had labrum repair of right hip years ago. NO weakness/numbness/swelling. Reports has chronic right hip pain but worse today. Had fever a few days ago, diagnosed with bronchitis after urgent care visit. . Historical: - Allergies: 05:19 Bactrim; rv 05:19 Zithromax; rv 05:19 Zosyn in dextrose (iso-osm); rv - Home Meds: 05:19 Ativan 1 mg Oral tablet 1 tab Every other day [Active]; Cymbalta 30 mg Oral rv capsule,delayed release (e.c.) daily [Active]; levothyroxine 75 mcg capsule once [Active]; - PMHx: 05:19 Anxiety; Asthma; Depression; HYPOGLYCEMIA; Hypothyroidism; scoliosis; rv - Immunization history:: Adult Immunizations up to date. - Social history:: Smoking status: Patient denies any tobacco usage or history of. - Family history:: not pertinent. - Hospitalizations: : No recent hospitalization is reported. ROS: 05:32 Constitutional: Negative for chills, and weight loss Eyes: Negative for injury, pain, rn redness, and discharge, Neck: Negative for injury, pain, and swelling, Cardiovascular: Negative for chest pain, palpitations, and edema, Respiratory: Negative for shortness of breath, cough, wheezing, and pleuritic chest pain, Abdomen/GI: Negative for abdominal pain, nausea, vomiting, diarrhea, and constipation, Back: Negative for injury and pain, : Negative for injury, bleeding, discharge, and swelling, MS/Extremity: + right hip pain Skin: Negative for injury, rash, and discoloration, Neuro: Negative for headache, weakness, numbness, tingling, and seizure. Exam: 05:32 Constitutional: This is a well developed, well nourished patient who is awake, alert, rn appears in pain Cardiovascular: Tachycardic, regular. No pulse deficits. Respiratory: No increased work of breathing, no retractions or nasal flaring. Abdomen/GI: Soft, non-tender Skin: Warm, dry, no signs of cellulitis MS/ Extremity: Pulses equal, no cyanosis. Neurovascular intact. Painful ROM right hip, no calf tenderness or swelling, no tenderness popliteal fossa. No tenderness medial thigh or groin. Vital Signs: 05:16 BP 123 / 82; Pulse 109; Resp 18; Temp 98.8; Pulse Ox 100% ; Weight 86.18 kg; Height 4 rv ft. 11 in. ; Pain 10/10; 08:16 BP 126 / 80; Pulse 108; Resp 16; Pulse Ox 99% ; ss 09:35 BP 118 / 78; Pulse 98; Resp 18; Temp 97.9; Pulse Ox 99% on R/A; ph 05:16 Body Mass Index 38.37 (86.18 kg, 149.86 cm) rv 05:16 Pain Scale: Adult rv MDM: 05:16 Patient medically screened. rn 06:16 ED course: Xrays hip/back do not show anything obvious to explain patient's level of rn pain. Recent infection could have caused a reactive arthritis. Will obtain blood and ct hip for further evaluation. Patient afebrile here and non-toxic. . 08:30 Differential diagnosis: bursitis, arthritis, strain. Data reviewed: vital signs, nurses antionette notes, EMS record, lab test result(s), radiologic studies, CT scan, plain films. Consideration of Admission/Observation Escalation of care including admission/observation considered. I considered the following discharge prescriptions or medication management in the emergency department Medications were administered in the Emergency Department. See MAR. Independent interpretation of the following test(s) in the Emergency Department CT Scan: My interpretation is ct reviiewed. Test considered but Not performed: MRI: no mri hip. Historians other than the Patient: Spouse/Significant Other: . Care significantly affected by the following chronic conditions: anxiety, asthma, depression, hypothyroid. Counseling: I had a detailed discussion with the patient and/or guardian regarding: the historical points, exam findings, and any diagnostic results supporting the discharge/admit diagnosis, lab results, radiology results, the need for outpatient follow up, for definitive care, a family practitioner, a orthopedic surgeon. 08:31 ED course: DW DR Norman JUSTIN , ALL LABS, EXAM, CT AND CRP AND FINDINGS, NOT CONCERNED antionette FOR SEPTIC JOINT, NSAIDS, REST , STEROIDS AND PAIN MEDS, FOLLOW UP OUT PATIENT. 05/10 06:15 Order name: CBC with Diff; Complete Time: 06:52 rn 05/10 06:15 Order name: Basic Metabolic Panel; Complete Time: 06:52 rn 05/10 06:15 Order name: CRP; Complete Time: 06:52 rn 05/10 06:15 Order name: Blood Culture Adult (2) 05/10 08:38 Order name: Urinalysis w/ reflexes eb 05/10 08:38 Order name: PREGU eb 05/10 05:25 Order name: XRAY Hip RIGHT 2 view rn 05/10 05:25 Order name: XRAY Lumbar Spine (3 Views) rn 05/10 06:20 Order name: Hip Right W Con; Complete Time: 08:26 EDMS 05/10 06:15 Order name: IV Start; Complete Time: 06:15 rn 05/10 08:33 Order name: Crutches; Complete Time: 08:46 antionette Administered Medications: 05:32 Not Given (Duplicate Order): morphine IM 4 mg IM once rv 05:32 Drug: morphine IVP or IV 4 mg Route: IVP; Infused Over: 4 mins; Site: left antecubital; rv 06:15 Drug: morphine IVP or IV 4 mg Route: IVP; Infused Over: 4 mins; Site: left antecubital; rv 07:53 Drug: Decadron - Dexamethasone IVP 10 mg Route: IVP; Site: left antecubital; ph 09:36 Follow up: Response: No adverse reaction ph 07:53 Not Given (given by EMS CARPET WINDER): Ketorolac IVP 30 mg IVP once ph 09:05 Drug: morphine IVP or IV 4 mg Route: IVP; Infused Over: 4 mins; Site: left antecubital; ph 09:36 Follow up: Response: No adverse reaction; Pain is decreased; RASS: Alert and Calm (0) ph 09:05 Drug: Ondansetron IVP 4 mg Route: IVP; Site: left antecubital; ph 09:36 Follow up: Response: No adverse reaction ph Disposition Summary: 05/10/23 08:35 Discharge Ordered Location: Home [facility] Problem: new antionette Symptoms: have improved antionette Condition: Stable antionette Diagnosis - Pain in right hip antionette - Effusion of joint - RIGHT HIP, SMALL antionette Followup: antionette - With: Private Physician - When: 2 - 3 days - Reason: Recheck today's complaints, Continuance of care, Re-evaluation by your physician Followup: antionette - With: Cristino Justin MD - When: 2 - 3 days - Reason: Recheck today's complaints, Re-evaluation by your physician Discharge Instructions: - Discharge Summary Sheet [facility] - Joint Pain antionette - Arthritis antionette - Musculoskeletal Pain antionette - Hip Pain [facility] - Arthritis, [id number] [facility] Forms: - Medication Reconciliation Form [facility] - Thank You Letter [facility] - Antibiotic Education antionette - Prescription Opioid Use [facility] - Patient Portal Instructions [facility] - Family Work Release Prescriptions: - acetaminophen-codeine 300-30 mg Oral tablet - take 2 tablet by ORAL route every 6 hours as needed for pain; 20 tablet; [facility] Refills: 0, Product Selection Permitted - dexamethasone 2 mg Oral tablet - take 2 tablet by ORAL route every 12 hours; 10 tablet; Refills: 0, Product [facility] Selection Permitted - Diclofenac Sodium 75 mg Oral tablet,delayed release (DR/EC) - take 1 tablet by ORAL route 2 times per day; 20 tablet; Refills: 0, Product [facility] Selection Permitted - Cyclobenzaprine 5 mg Oral Tablet - take 1 tablet by ORAL route 3 times per day As needed; 15 tablet; Refills: 0, [facility] Product Selection Permitted Signatures: Dispatcher [employer] Juan A Encarnacion MD MD cha Nieto, Roman, MD MD rn Hall, Patricia, RN RN ph Vicente, Ronaldo RN RN rv
[2023-05-10] MEDS ORDERED: ONDANSETRON 4 MG/2 ML VIAL ONE (08:57)
[2023-05-10 09:55] VITALS: O2SAT 99
[2023-05-10 09:56] VITALS: BP 118/78; TEMP 97.9
[2023-05-10 09:59] LABS: Specific Gravity > 1.030 (1.005-1.030); Urine Bilirubin NEGATIVE (Negative); Urine Blood Negative (Negative); Urine Clarity Clear (Clear); Urine Color Light-Yellow (Yellow); Urine Glucose NEGATIVE (Negative); Urine Protein NEGATIVE (Negative); Urine Urobilinogen Normal (Normal)
[2023-05-10 10:04] LABS: Specific Gravity > 1.030 (1.005-1.030)
== END 2023-05-10 09:36 | disposition home or self-care (01) ==
LOC: ER 05:13
DX: M25.451 Effusion, right hip (principal); Z88.1 Allergy status to other antibiotic agents; Z88.8 Allergy status to other drugs, medicaments and biological substances
CPT/HCPCS: 87040 ×2; 85025; 80048; 36415; 81025; 81003; 86140; 73701; 72100; 73502; 96375; 96374; 99284; Q9967; J1100; J2405

== ENCOUNTER 2023-05-11 17:43 | Emergency (ER) | payer BC ==
[2023-05-11 19:16] LABS: Absolute Lymphocytes (CBC) 1.1 K/uL (0.7-4.9); Lymphocytes % 8.4 % (15.3-44.8); MCV 86.4 fL (80-100); MPV 8.6 fL (7.6-11.3); RBC Red Blood Cell Count 4.39 M/uL (3.86-4.86)
[2023-05-11 19:20] LABS: Protime INR 1.01
[2023-05-11] MEDS ORDERED: NA CHLORIDE 0.9% 1,000 ML ONE (19:25)
[2023-05-11] MEDS ORDERED: ONDANSETRON 4 MG/2 ML VIAL ONE (19:25)
[2023-05-11] MEDS ORDERED: MORPHINE 4 MG/ML SYR ONE ×3 (19:25→22:07)
[2023-05-11 19:30] LABS: Bilirubin Total 0.3 mg/dL (0.2-1.0); Potassium 3.7 mEq/L (3.5-5.1); Protein, Total 7.5 g/dL (6.4-8.2)
--- NOTE | 2023-05-11 20:35 | EDPHYS ---
Physician Documentation [facility] Name: Adelaide Larson Age: 23 yrs Sex: Female : 2000 Arrival Date: 05/11/2023 Time: 17:43 Bed 20 Private MD: ED Physician Davidson Vallejo HPI: 05/11 19:21 This 23 yrs old Female presents to ER via Wheelchair with complaints of Hip Pain, Fever.kb 19:21 The patient or guardian reports pain. that occurred at home, sustained from unknown kb reason, There is no obvious deformity, The patient is able to ambulate with assistance. There is no radiation of the patient's discomfort. The complaints affect the right hip. Onset: The symptoms/episode began/occurred 3 day(s) ago. Modifying factors: The symptoms are alleviated by nothing, the symptoms are aggravated by any movement. Associated signs and symptoms: Pertinent positives: fever. Severity of symptoms: At their worst the symptoms were moderate, severe, in the emergency department the symptoms are unchanged. The patient has not experienced similar symptoms in the past. The patient has been recently seen at the [facility] Emergency Department, yesterday, for similar complaints labs were performed, X-rays were performed, CT scan was performed. 19:55 Pt reports hip pain that started on and has gotten worse. States she is unable kb to bear weight and has pain on ROM of hip. Reports fever up to 101 today. Historical: - Allergies: 17:55 Bactrim; hb 17:55 Zithromax; hb 17:55 Zosyn in dextrose (iso-osm); hb - Home Meds: 17:55 levothyroxine 75 mcg capsule once [Active]; Cymbalta 30 mg Oral capsule,delayed release hb (e.c.) daily [Active]; Ativan 1 mg Oral tablet 1 tab Every other day [Active]; - PMHx: 17:55 Anxiety; Asthma; Depression; HYPOGLYCEMIA; Hypothyroidism; scoliosis; hb - Immunization history:: Adult Immunizations up to date. - Social history:: Smoking status: Patient denies any tobacco usage or history of. ROS: 19:20 Respiratory: Negative for shortness of breath, cough, wheezing, and pleuritic chest kb pain. 19:20 Constitutional: Positive for fever. 19:20 MS/extremity: Positive for pain, of the right hip. 19:20 All other systems are negative. Exam: 19:20 Constitutional: This is a well developed, well nourished patient who is awake, alert, kb and in no acute distress. Head/Face: Normocephalic, atraumatic. ENT: Moist Mucous membranes Cardiovascular: Regular rate and rhythm with a normal S1 and S2. No gallops, murmurs, or rubs. No pulse deficits. Respiratory: Respirations even and unlabored. No increased work of breathing. Talking in full sentences Abdomen/GI: Soft, non-tender. No distention Back: No spinal tenderness. No costovertebral tenderness. Full range of motion. Skin: Warm, dry with normal turgor. Normal color. Neuro: Awake and alert, GCS 15, oriented to person, place, time, and situation. Moves all extremities. Normal gait. 19:20 Musculoskeletal/extremity: Extremities: grossly normal except: noted in the right hip: pain, tenderness, ROM: limited active range of motion due to pain, Circulation is intact in all extremities. Sensation intact. Vital Signs: 17:54 BP 133 / 90; Pulse 97; Resp 18; Temp 98.8(O); Pulse Ox 96% on R/A; Weight 86.18 kg; hb Height 4 ft. 11 in. ; Pain 10/10; 19:30 BP 122 / 66; Pulse 80; Resp 18 S; Pulse Ox 98% on R/A; ha1 20:00 BP 125 / 82; Pulse 70; Resp 16; Pulse Ox 98% on R/A; ha1 21:00 BP 114 / 88; Pulse 80; Resp 16 S; Pulse Ox 99% on R/A; ha1 21:30 BP 114 / 88; Pulse 90; Resp 19 S; Pulse Ox 100% on R/A; ha1 22:00 BP 122 / 73; Pulse 80; Resp 18 S; Temp 98.1(O); Pulse Ox 99% on R/A; ha1 22:30 BP 112 / 75; Pulse 81; Resp 15 S; Pulse Ox 99% on R/A; ha1 17:54 Body Mass Index 38.37 (86.18 kg, 149.86 cm) hb 17:54 Pain Scale: Adult hb MDM: 17:51 Patient medically screened. kb 19:21 Data reviewed: vital signs, nurses notes. kb 19:53 Management of patient was discussed with the following: Associate Pathologist: BHARATH Justin who kb recommends transfer for interventional radiology. 19:54 Differential diagnosis: arthritis, strain. kb 20:12 Transition of care: After a detail discussion of the patient's case, care is kb transferred to Davidson Vallejo MD. 05/11 17:57 Order name: Blood Culture Adult (2) kb 05/11 17:57 Order name: CBC with Diff; Complete Time: 19:19 kb 05/11 17:57 Order name: CMP; Complete Time: 19:40 kb 05/11 17:57 Order name: Lactate w/ 2H reflex if indic.; Complete Time: 19:40 kb 05/11 17:57 Order name: Protime (+inr); Complete Time: 19:40 kb 05/11 17:57 Order name: Ptt, Activated; Complete Time: 19:40 kb 05/11 17:58 Order name: Flu; Complete Time: 19:19 kb 05/11 17:57 Order name: EKG; Complete Time: 17:58 kb 05/11 17:57 Order name: Accucheck; Complete Time: 19:46 kb 05/11 17:57 Order name: Cardiac monitoring; Complete Time: 18:00 kb 05/11 17:57 Order name: EKG - Nurse/Tech; Complete Time: 19:46 kb 05/11 17:57 Order name: IV Saline Lock - Large Bore; Complete Time: 19:05 kb 05/11 17:57 Order name: Labs collected and sent; Complete Time: 19:05 kb 05/11 17:57 Order name: O2 Per Protocol; Complete Time: 18:00 kb 05/11 17:57 Order name: O2 Sat Monitoring; Complete Time: 18:00 kb 05/11 17:57 Order name: Vital Signs; Complete Time: 18:00 kb Administered Medications: 19:18 Drug: NS 0.9% IV 1000 ml Route: IV; Rate: 1000 ml; Site: right antecubital; ha1 22:39 Follow up: Response: No adverse reaction; IV Status: Infusion continued; IV Intake: ha1 600ml 19:18 Drug: Ondansetron IVP 4 mg Route: IVP; Site: right antecubital; ha1 20:00 Follow up: Response: No adverse reaction ha1 19:21 Drug: morphine IVP or IV 4 mg Route: IVP; Infused Over: 4 mins; Site: right antecubital;ha1 20:00 Follow up: Response: No adverse reaction; Pain is unchanged, physician notified; RASS: ha1 Alert and Calm (0) 20:31 Drug: morphine IVP or IV 4 mg Route: IVP; Infused Over: 4 mins; Site: right antecubital;ha1 21:00 Follow up: Response: No adverse reaction; Pain is decreased; RASS: Alert and Calm (0) ha1 22:02 Drug: morphine IVP or IV 4 mg Route: IVP; Infused Over: 4 mins; Site: right antecubital;ha1 22:37 Follow up: Response: No adverse reaction; Pain is decreased; RASS: Alert and Calm (0) ha1 Disposition: 22:03 Co-signature as Attending Physician, Davidson Vallejo MD I agree with the assessment and rt plan of care. I discussed with interventional radiology, orthopedics, hospitalist at [facility], accepts patient in transfer. Disposition Summary: 05/11/23 20:34 Transfer Ordered Transfer Location: [facility] rt Reason: Higher level of care rt Condition: Stable rt Problem: new rt Symptoms: are unchanged rt Accepting Physician: Dr. Chiu(05/11/23 22:42) ha1 Diagnosis - Hip effusion rt Forms: - Medication Reconciliation Form rt - SBAR form rt Signatures: Dispatcher [employer] Sahara Gillespie, CAROLINA CRAIG-Chioma Rodríugez RN JAZ Kaley Jennings RN RN ha1 Davidson Vallejo MD MD rt Corrections: (The following items were deleted from the chart) 20:03 19:53 Management of patient was discussed with the following: Associate Pathologist: BHARATH Justin who recommends transfer. . kb 22:42 20:34 Dr. Chiu rt ha1
--- NOTE | 2023-05-11 20:35 | ER ---
Nurse's Notes [facility] Name: Adelaide Larson Age: 23 yrs Sex: Female : 2000 Arrival Date: 05/11/2023 Time: 17:43 Bed 20 Private MD: Diagnosis: Hip effusion Presentation: 05/11 17:54 Chief complaint: Right hip pain x 3 days, fever 101 today. Denies injury. Right hip hb surgery 2 years ago. Motrin admin at 1200 today. Coronavirus screen: At this time, the client does not indicate any symptoms associated with coronavirus-19. Ebola Screen: No symptoms or risks identified at this time. Initial Sepsis Screen: Does the patient meet any 2 criteria? No. Patient's initial sepsis screen is negative. Does the patient have a suspected source of infection? No. Patient's initial sepsis screen is negative. Risk Assessment: Do you want to hurt yourself or someone else? Patient reports no desire to harm self or others. Onset of symptoms was May 09, 2023. 17:54 Method Of Arrival: Wheelchair hb 17:54 Acuity: LUIZ 3 hb Historical: - Allergies: 17:55 Bactrim; hb 17:55 Zithromax; hb 17:55 Zosyn in dextrose (iso-osm); hb - Home Meds: 17:55 levothyroxine 75 mcg capsule once [Active]; Cymbalta 30 mg Oral capsule,delayed release hb (e.c.) daily [Active]; Ativan 1 mg Oral tablet 1 tab Every other day [Active]; - PMHx: 17:55 Anxiety; Asthma; Depression; HYPOGLYCEMIA; Hypothyroidism; scoliosis; hb - Immunization history:: Adult Immunizations up to date. - Social history:: Smoking status: Patient denies any tobacco usage or history of. Screenin:58 [facility] ED Fall Risk Assessment (Adult) History of falling in the last 3 months, ko1 including since admission No falls in past 3 months (0 pts) Confusion or Disorientation No (0 pts) Intoxicated or Sedated No (0 pts) Impaired Gait No (0 pts) Mobility Assist Device Used No (0 pt) Altered Elimination No (0 pt) Score/Fall Risk Level 0 - 2 = Low Risk Oriented to surroundings, Maintained a safe environment, Educated pt \T\ family on fall prevention, incl call for assistance when getting out of bed, Assessed \T\ reinforced patient's understanding of fall precautions, Provided non-skid footwear, Hourly rounding (assess needs \T\ fall precautionary measures) done, Used ambulatory aids as needed (educated on \T\ assisted with), Used gait belt as appropriate. Abuse screen: Denies threats or abuse. Denies injuries from another. Nutritional screening: No deficits noted. Tuberculosis screening: No symptoms or risk factors identified. Assessment: 17:58 General: Appears distressed, uncomfortable, Behavior is cooperative, appropriate for ko1 age, crying. Pain: Complains of pain in right hip. Neuro: No deficits noted. Cardiovascular: No deficits noted. Respiratory: No deficits noted. GI: No deficits noted. : No deficits noted. EENT: No deficits noted. Derm: No deficits noted. Musculoskeletal: Reports pain in right hip. 19:30 General: Appears uncomfortable, Behavior is cooperative. Pain: Complains of pain in ha1 right leg and right hip Pain does not radiate. Pain currently is 10 out of 10 on a pain scale. Quality of pain is described as throbbing. Neuro: Level of Consciousness is awake, alert, obeys commands, Oriented to person, place, time, situation. Cardiovascular: Patient's skin is warm and dry. Respiratory: Airway is patent Respiratory effort is even, unlabored, Respiratory pattern is regular, symmetrical. GI: No signs and/or symptoms were reported involving the gastrointestinal system. Abdomen is round non-distended, obese. : No signs and/or symptoms were reported regarding the genitourinary system. Derm: Skin is pink, warm \T\ dry. Musculoskeletal: Circulation, motion, and sensation intact. Reports pain in right leg. 20:30 Reassessment: Patient and/or family updated on plan of care and expected duration. Pain ha1 level reassessed. Patient is alert, oriented x 3, equal unlabored respirations, skin warm/dry/pink. pain /10. 21:00 Reassessment: Patient and/or family updated on plan of care and expected duration. Pain ha1 level reassessed. Patient is alert, oriented x 3, equal unlabored respirations, skin warm/dry/pink. pain 5/10. 21:55 Reassessment: reports pain pain 9/10. notified Dr. Vallejo. ha1 22:28 Reassessment: Patient and/or family updated on plan of care and expected duration. Pain ha1 level reassessed. Patient is alert, oriented x 3, equal unlabored respirations, skin warm/dry/pink. Vital Signs: 17:54 BP 133 / 90; Pulse 97; Resp 18; Temp 98.8(O); Pulse Ox 96% on R/A; Weight 86.18 kg; hb Height 4 ft. 11 in. ; Pain 10/10; 19:30 BP 122 / 66; Pulse 80; Resp 18 S; Pulse Ox 98% on R/A; ha1 20:00 BP 125 / 82; Pulse 70; Resp 16; Pulse Ox 98% on R/A; ha1 21:00 BP 114 / 88; Pulse 80; Resp 16 S; Pulse Ox 99% on R/A; ha1 21:30 BP 114 / 88; Pulse 90; Resp 19 S; Pulse Ox 100% on R/A; ha1 22:00 BP 122 / 73; Pulse 80; Resp 18 S; Temp 98.1(O); Pulse Ox 99% on R/A; ha1 22:30 BP 112 / 75; Pulse 81; Resp 15 S; Pulse Ox 99% on R/A; ha1 17:54 Body Mass Index 38.37 (86.18 kg, 149.86 cm) hb 17:54 Pain Scale: Adult hb ED Course: 17:44 Patient arrived in ED. kj1 17:45 Sahara Lynn FNP-C is PHCP. kb 17:45 Juan A Louie MD is Attending Physician. kb 17:51 Elicia Danielson, JAZ is Primary Nurse. ko1 17:51 Sahara Lynn FNP-C is PHCP. kb 17:51 Juan A Louie MD is Attending Physician. kb 17:55 Triage completed. hb 17:55 Arm band placed on. hb 17:58 Patient has correct armband on for positive identification. Bed in low position. Call ko1 light in reach. Side rails up X 1. Provided Education on: NA. Pulse ox on. NIBP on. Door closed. Noise minimized. Lights dimmed. Warm blanket given. 18:57 Inserted saline lock: 20 gauge in right antecubital area, using aseptic technique. jb4 Blood collected. 18:57 Initial lab(s) drawn, by me, by EMS personnel. First set of blood cultures drawn by me. jb4 19:05 Inserted saline lock: 20 gauge in right antecubital area, using aseptic technique. ap3 Blood collected. 20:[address] [facility]. 5 20:13 Attending Physician role handed off by Juan A Louie MD kb 20:13 Davidson Vallejo MD is Attending Physician. kb 21:14 Patient accepted to [facility]- [address] Chiu. mc5 21:55 Contacted [facility] to request Transfer Truck, 30 min ETA given. mc5 22:29 No provider procedures requiring assistance completed. Patient transferred, IV remains ha1 in place. Administered Medications: 19:18 Drug: NS 0.9% IV 1000 ml Route: IV; Rate: 1000 ml; Site: right antecubital; ha1 22:39 Follow up: Response: No adverse reaction; IV Status: Infusion continued; IV Intake: ha1 600ml 19:18 Drug: Ondansetron IVP 4 mg Route: IVP; Site: right antecubital; ha1 20:00 Follow up: Response: No adverse reaction ha1 19:21 Drug: morphine IVP or IV 4 mg Route: IVP; Infused Over: 4 mins; Site: right antecubital;ha1 20:00 Follow up: Response: No adverse reaction; Pain is unchanged, physician notified; RASS: ha1 Alert and Calm (0) 20:31 Drug: morphine IVP or IV 4 mg Route: IVP; Infused Over: 4 mins; Site: right antecubital;ha1 21:00 Follow up: Response: No adverse reaction; Pain is decreased; RASS: Alert and Calm (0) ha1 22:02 Drug: morphine IVP or IV 4 mg Route: IVP; Infused Over: 4 mins; Site: right antecubital;ha1 22:37 Follow up: Response: No adverse reaction; Pain is decreased; RASS: Alert and Calm (0) ha1 Medication: 22:35 VIS not applicable for this client. ha1 Intake: 22:39 IV: 600ml; Total: 600ml. ha1 Outcome: 20:34 ER care complete, transfer ordered by . rt 22:34 Transferred by ground EMS to [facility], Transfer form completed. ha1 Note: transferred by [facility] ambulance. Reports was given to receiving nurse, JAZ Pineda 22:34 Condition: stable 22:34 Discharge instructions given to patient, family, Instructed on the need for transfer, Demonstrated understanding of instructions. 22:42 Patient left the ED. ha1 Signatures: Sahara Lynn FNP-C FNP-Ckb Baxter, Heather, RN RN Lauri Okeefe RN RN jb4 Aletha Kidd RN RN ap3 Latia Lynn1 Kaley Jennings RN RN ha1 Elicia Danielson RN RN ko1 Davidson Vallejo MD MD rt Carmelina Rm 5 Corrections: (The following items were deleted from the chart) 22:37 20:30 Reassessment: Patient and/or family updated on plan of care and expected ha1 duration. Pain level reassessed. Patient is alert, oriented x 3, equal unlabored respirations, skin warm/dry/pink. ha1
[2023-05-11 23:26] VITALS: TEMP 98.1; O2SAT 99
[2023-05-11 23:28] VITALS: BP 112/75
--- NOTE | 2023-05-13 11:46 | EKG ---
Test Date: 2023-05-11 Test Time: 19:46:59 Recovery Operator: SAUL MEASUREMENT RESULTS: Intervals: Rate: 67 OK: 126 QRSD: 74 QT: 396 QTc: 418 [place]: P: 41 OK: 126 QRS: 76 T: 56 INTERPRETIVE STATEMENTS: Normal sinus rhythm with sinus arrhythmia Nonspecific ST and T wave abnormality Abnormal ECG No previous ECG available for comparison Electronically Signed On 05-13-23 11:44:22 CDT by Renato Cook
== END 2023-05-11 22:42 | disposition short-term general hospital (02) ==
LOC: ER 17:43
DX: M25.451 Effusion, right hip (principal); R50.9 Fever, unspecified; Z88.1 Allergy status to other antibiotic agents; Z88.8 Allergy status to other drugs, medicaments and biological substances
CPT/HCPCS: 96361; 93005; 87040 ×2; 85025; 36415; 85610; 83605; 85730; 80053; 87804 ×2; 96375; 96374; 99285; J2405; J7030

== ENCOUNTER 2023-08-21 21:50 | Emergency (ER) | payer BC ==
[2023-08-21 22:34] LABS: Absolute Lymphocytes (CBC) 1.7 K/uL (0.7-4.9); Hematocrit 38.1 % (36.0-45.0); Lymphocytes % 23.9 % (15.3-44.8); MCV 87.8 fL (80-100); MPV 9.1 fL (7.6-11.3); Platelets 277 thou/uL (152-406); RBC Red Blood Cell Count 4.34 M/uL (3.86-4.86)
[2023-08-21] MEDS ORDERED: CYCLOBENZAPRINE 10 MG TAB ONE (22:34)
[2023-08-21] MEDS ORDERED: MORPHINE 4 MG/ML SYR ONE (22:35)
[2023-08-21] MEDS ORDERED: KETOROLAC 30 MG/ML INJ ONE (22:35)
[2023-08-21] MEDS ORDERED: ONDANSETRON 4 MG/2 ML VIAL ONE (22:35)
--- NOTE | 2023-08-21 22:35 | RAD REPORT ---
EXAM DESCRIPTION: CT - CTHCSPWOC - 08/21/2023 10:25 pm CLINICAL HISTORY: Trauma, head and neck injury. headache, neck pain COMPARISON: Soft Tissue Neck W/Contr dated 11/11/2022; Head C Spine Mpr Wo Con dated 06/04/2022; Head C Spine Mpr Wo Con dated 03/06/2021 TECHNIQUE: Axial 5 mm thick images of the head were obtained. Axial 2 mm thick images of the cervical spine were obtained with sagittal and coronal reconstruction images generated and reviewed. All CT scans are performed using dose optimization technique as appropriate and may include automated exposure control or mA/KV adjustment according to patient size. FINDINGS: CT HEAD WITHOUT CONTRAST: No acute hemorrhage, hydrocephalus or extra-axial collection is identified.No areas of brain edema or midline shift. The paranasal sinuses and mastoids are clear.The calvarium is intact. 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 Prominent diffuse thyroid goiter. IMPRESSION: No acute intracranial or cervical spine findings.
[2023-08-21 22:45] LABS: Magnesium 2.1 mg/dL (1.6-2.4); Potassium 3.8 mEq/L (3.5-5.1)
--- NOTE | 2023-08-21 23:30 | EDPHYS ---
Physician Documentation [facility] Name: Adelaide Larson Age: 23 yrs Sex: Female : 2000 Arrival Date: 08/21/2023 Time: 21:50 Bed 8 Private MD: ED Physician Jameel Jaime HPI: 08/21 21:54 This 23 yrs old Female presents to ER via Unassigned with complaints of Neck sp4 Pain, >24Hrs Old. 21:56 PMH - Allergies: Bactrim; Zithromax; Zosyn in dextrose Home Meds: levothyroxine 75 mcg sp4 capsule once; Cymbalta 30 mg Oral capsule,delayed release daily; Ativan 1 mg Oral tablet 1 tab Every other day PMHx: Anxiety; Asthma; Depression; HYPOGLYCEMIA; Hypothyroidism; scoliosis;. 23:45 23-year-old female presents to the emergency room with complaints of left-sided neck sp4 pain starting in the last several hours on awakening this morning. Patient states that she has had previous similar pains but this time its worse. Pain radiates down the left arm. There is no weakness reported. Patient reports associated left-sided headache. . Historical: - Allergies: 21:58 Bactrim; cm10 21:58 Zithromax; cm10 21:58 Zosyn in dextrose (iso-osm); cm10 - PMHx: 21:58 Anxiety; Asthma; Depression; HYPOGLYCEMIA; Hypothyroidism; scoliosis; cm10 - Immunization history:: Adult Immunizations unknown. - Social history:: Smoking status: Patient denies any tobacco usage or history of. - Family history:: not pertinent. ROS: 23:45 Constitutional: Negative for fever, chills, and weight loss, positive neck pain, sp4 positive left headache, positive left arm pain 23:45 All other systems are negative, Exam: 23:45 Constitutional: This is a well developed, well nourished patient who is awake, alert, sp4 and in no acute distress. Head/Face: Normocephalic, atraumatic. Eyes: Pupils equal round and reactive to light, extra-ocular motions intact. Lids and lashes normal. Conjunctiva and sclera are not injected. Cornea within normal limits. Periorbital areas with no swelling, redness, or edema. ENT: Nares patent. No nasal discharge, no septal abnormalities noted. Tympanic membranes are normal and external auditory canals are clear. Oropharynx with no redness, swelling, or masses, exudates, or evidence of obstruction, uvula midline. Mucous membranes moist. Neck: Trachea midline, no thyromegaly or masses palpated, and no cervical lymphadenopathy. Supple, full range of motion without nuchal rigidity, or vertebral point tenderness. Chest/axilla: Normal chest wall appearance and motion. Nontender with no deformity. No lesions are appreciated. Cardiovascular: Regular rate and rhythm with a normal S1 and S2. No gallops, murmurs, or rubs. Normal PMI, no JVD. No pulse deficits. Respiratory: Lungs have equal breath sounds bilaterally, clear to auscultation and percussion. No rales, rhonchi or wheezes noted. No increased work of breathing, no retractions or nasal flaring. Abdomen/GI: Soft, non-tender, with normal bowel sounds. No distension or tympany. No guarding or rebound. No evidence of tenderness throughout. Back: No spinal tenderness. No costovertebral tenderness. Skin: Warm, dry with normal turgor. Normal color with no rashes, no lesions, and no evidence of cellulitis. MS/ Extremity: Pulses equal, no cyanosis. Neurovascular intact. Full, normal range of motion. Neuro: Awake and alert, GCS 15, oriented to person, place, time, and situation. Cranial nerves II-XII grossly intact. Motor strength 5/5 in all extremities. Sensory grossly intact. Psych: Awake, alert, with orientation to person, place and time. Behavior, mood, and affect are within normal limits Vital Signs: 21:56 BP 129 / 74; Pulse 108; Resp 18; Temp 98.8; Pulse Ox 100% ; Weight 86.18 kg; Height 4 cm10 ft. 11 in. ; Pain 10/10; 22:15 BP 114 / 75; Pulse 90; Resp 16 S; Pulse Ox 99% on R/A; ha1 23:43 BP 120 / 76; Pulse 85; Resp 16; Temp 98.4; Pulse Ox 98% on R/A; rv 21:56 Body Mass Index 38.37 (86.18 kg, 149.86 cm) cm10 21:56 Pain Scale: Adult cm10 [place] Coma Score: 23:43 Eye Response: spontaneous(4). Motor Response: obeys commands(6). Verbal Response: rv oriented(5). Total: 15. MDM: 22:27 Patient medically screened. sp4 23:18 ED course: EXAM DESCRIPTION: CT - CTHCSPWOC - 08/21/2023 10:25 pm CLINICAL HISTORY: sp4 Trauma, head and neck injury. headache, neck pain COMPARISON: Soft Tissue Neck W/Contr dated 11/11/2022; Head C Spine Mpr Wo Con dated 06/04/2022; Head C Spine Mpr Wo Con dated 03/06/2021 TECHNIQUE: Axial 5 mm thick images of the head were obtained. Axial 2 mm thick images of the cervical spine were obtained with sagittal and coronal reconstruction images generated and reviewed. All CT scans are performed using dose optimization technique as appropriate and may include automated exposure control or mA/KV adjustment according to patient size. FINDINGS: CT HEAD WITHOUT CONTRAST: No acute hemorrhage, hydrocephalus or extra-axial collection is identified.No areas of brain edema or midline shift. The paranasal sinuses and mastoids are clear.The calvarium is intact. 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 Prominent diffuse thyroid goiter. IMPRESSION: No acute intracranial or cervical spine findings. . 08/21 22:01 Order name: Test, Urine; Complete Time: 23:43 sp4 08/21 22:01 Order name: Basic Metabolic Panel; Complete Time: 23:17 sp4 08/21 22:01 Order name: CBC with Diff; Complete Time: 23:17 sp4 08/21 22:01 Order name: Magnesium; Complete Time: 23:17 sp4 08/21 22:02 Order name: CT Head C Spine; Complete Time: 23:17 sp4 08/21 22:01 Order name: IV Saline Lock; Complete Time: 22:18 sp4 08/21 22:01 Order name: Labs collected and sent; Complete Time: 22:18 sp4 08/21 22:01 Order name: O2 Per Protocol; Complete Time: 22:18 sp4 08/21 22:01 Order name: O2 Sat Monitoring; Complete Time: 22:18 sp4 08/21 23:31 Order name: Sling; Complete Time: 23:31 sp4 Administered Medications: 22:30 Drug: Ketorolac IVP 30 mg IVP once Route: IVP; Site: right antecubital; ha1 23:43 Follow up: Response: No adverse reaction rv 22:30 Drug: Cyclobenzaprine PO 10 mg PO once Route: PO; ha1 23:43 Follow up: Response: No adverse reaction rv 22:30 Drug: Ondansetron IVP 8 mg IVP once; over 2 minutes Route: IVP; Site: right antecubital;ha1 23:43 Follow up: Response: No adverse reaction rv 22:35 Drug: morphine IVP or IV 4 mg IVP once over 4 mins Route: IVP; Infused Over: 4 mins; ha1 Site: right antecubital; 23:00 Follow up: Response: No adverse reaction; Pain is decreased; RASS: Alert and Calm (0) ha1 23:43 Follow up: Response: No adverse reaction rv 23:42 Drug: [place] PO 10 mg-325 mg 1 tabs PO once Route: PO; rv 23:43 Follow up: Response: Medication administered at discharge. rv 23:42 Drug: Ibuprofen PO 400 mg PO once Route: PO; rv 23:42 Follow up: Response: Medication administered at discharge. rv 23:42 Drug: Promethazine PO 25 mg PO once Route: PO; rv 23:42 Follow up: Response: Medication administered at discharge. rv Disposition Summary: 08/21/23 23:29 Discharge Ordered Problem: new sp4 Symptoms: have improved sp4 Condition: Stable sp4 Diagnosis - Acute neck pain, acute muscular strain, acute headache, neuropathic pain sp4 Followup: sp4 - With: Corby Burnett MD - When: 7 - 10 days - Reason: Recheck today's complaints Discharge Instructions: - Discharge Summary Sheet sp4 - Cervical Radiculopathy, [id number] sp4 Forms: - Patient Portal Instructions sp4 Prescriptions: - Ibuprofen 800 mg Oral Tablet - take 1 tablet ORAL route every 8 hours As needed take with food; 30 tablet; sp4 Refills: 0, Product Selection Permitted - Cyclobenzaprine 10 mg Oral Tablet - take 1 tablet ORAL route every 8 hours As needed; 30 tablet; Refills: 0, sp4 Product Selection Permitted - Tramadol 50 mg Oral tablet - take 1 tablet ORAL route every 8 hours as needed for pain; 20 tablet; Refills: sp4 0, Product Selection Permitted Signatures: Dispatcher [employer] Clemente Pond RN RN rv Kaley Jennings RN RN ha1 Jameel Jaime MD MD sp4 Winifred Mariscal RN RN cm10
--- NOTE | 2023-08-21 23:30 | ER ---
Nurse's Notes [facility] Name: Adelaide Larson Age: 23 yrs Sex: Female : 2000 Arrival Date: 08/21/2023 Time: 21:50 Bed 8 Private MD: Diagnosis: Acute neck pain, acute muscular strain, acute headache, neuropathic pain Presentation: 08/21 21:56 Chief complaint: Patient states: pain to left side of neck that radiates down left arm cm10 and up her face. Pt states that the pain began 3 days ago. Pt denies any trauma or injury. Coronavirus screen: Vaccine status: Patient reports being unvaccinated. Client denies travel out of the [place] in the last 14 days. Ebola Screen: Patient denies travel to an Ebola-affected area in the 21 days before illness onset. No symptoms or risks identified at this time. Acute neurological deficit: none identified. Initial Sepsis Screen: Does the patient meet any 2 criteria? No. Patient's initial sepsis screen is negative. Does the patient have a suspected source of infection? No. Patient's initial sepsis screen is negative. Risk Assessment: Do you want to hurt yourself or someone else? Patient reports no desire to harm self or others. Onset of symptoms was August 18, 2023. 21:56 Method Of Arrival: Ambulatory cm10 21:56 Acuity: LUIZ 4 cm10 Triage Assessment: 23:44 General: Appears in no apparent distress. uncomfortable, Behavior is calm, cooperative. rv Pain: Complains of pain in NECK. Historical: - Allergies: 21:58 Bactrim; cm10 21:58 Zithromax; cm10 21:58 Zosyn in dextrose (iso-osm); cm10 - PMHx: 21:58 Anxiety; Asthma; Depression; HYPOGLYCEMIA; Hypothyroidism; scoliosis; cm10 - Immunization history:: Adult Immunizations unknown. - Social history:: Smoking status: Patient denies any tobacco usage or history of. - Family history:: not pertinent. Screenin:30 [facility] ED Fall Risk Assessment (Adult) History of falling in the last 3 months, rv including since admission No falls in past 3 months (0 pts) Score/Fall Risk Level 0 - 2 = Low Risk Oriented to surroundings, Maintained a safe environment, Educated pt \T\ family on fall prevention, incl call for assistance when getting out of bed, Assessed \T\ reinforced patient's understanding of fall precautions, Provided non-skid footwear, Hourly rounding (assess needs \T\ fall precautionary measures) done, Used ambulatory aids as needed (educated on \T\ assisted with), Used gait belt as appropriate. 22:40 Abuse screen: Denies threats or abuse. Denies injuries from another. Nutritional ha1 screening: No deficits noted. Tuberculosis screening: No symptoms or risk factors identified. Assessment: 22:30 General: Appears uncomfortable, Behavior is calm, cooperative. rv 22:30 Pain: Complains of pain in NECK. Neuro: Level of Consciousness is awake, alert, obeys rv commands, Oriented to person, place, time, situation. Cardiovascular: Capillary refill < 3 seconds Patient's skin is warm and dry. Respiratory: Airway is patent Respiratory effort is even, unlabored. Derm: Skin is intact. 23:30 Reassessment: Patient and/or family updated on plan of care and expected duration. Pain ha1 level reassessed. Patient is alert, oriented x 3, equal unlabored respirations, skin warm/dry/pink. Patient states feeling better. Patient states symptoms have improved. Vital Signs: 21:56 BP 129 / 74; Pulse 108; Resp 18; Temp 98.8; Pulse Ox 100% ; Weight 86.18 kg; Height 4 cm10 ft. 11 in. ; Pain 10/10; 22:15 BP 114 / 75; Pulse 90; Resp 16 S; Pulse Ox 99% on R/A; ha1 23:43 BP 120 / 76; Pulse 85; Resp 16; Temp 98.4; Pulse Ox 98% on R/A; rv 21:56 Body Mass Index 38.37 (86.18 kg, 149.86 cm) cm10 21:56 Pain Scale: Adult cm10 Jeromy Coma Score: 23:43 Eye Response: spontaneous(4). Motor Response: obeys commands(6). Verbal Response: rv oriented(5). Total: 15. ED Course: 21:51 Patient arrived in ED. jj6 21:54 Jameel Jaime MD is Attending Physician. sp4 21:58 Triage completed. cm10 21:58 Arm band placed on Patient placed in an exam room, on a stretcher. cm10 22:00 Patient has correct armband on for positive identification. rv 22:15 Inserted saline lock: 22 gauge in right antecubital area, using aseptic technique. ha1 Blood collected. 22:26 CT Head C Spine In Process Unspecified. EDMS 22:37 Kaley Jennings, RN is Primary Nurse. ha1 22:38 Basic Metabolic Panel Sent. ha1 22:38 CBC with Diff Sent. ha1 22:38 Magnesium Sent. ha1 22:38 Test, Urine Sent. ha1 23:28 Corby Burnett MD is Referral Physician. sp4 23:44 No provider procedures requiring assistance completed. IV discontinued, intact, rv bleeding controlled, No redness/swelling at site. Pressure dressing applied. Administered Medications: 22:30 Drug: Ketorolac IVP 30 mg IVP once Route: IVP; Site: right antecubital; ha1 23:43 Follow up: Response: No adverse reaction rv 22:30 Drug: Cyclobenzaprine PO 10 mg PO once Route: PO; ha1 23:43 Follow up: Response: No adverse reaction rv 22:30 Drug: Ondansetron IVP 8 mg IVP once; over 2 minutes Route: IVP; Site: right antecubital;ha1 23:43 Follow up: Response: No adverse reaction rv 22:35 Drug: morphine IVP or IV 4 mg IVP once over 4 mins Route: IVP; Infused Over: 4 mins; ha1 Site: right antecubital; 23:00 Follow up: Response: No adverse reaction; Pain is decreased; RASS: Alert and Calm (0) ha1 23:43 Follow up: Response: No adverse reaction rv 23:42 Drug: [place] PO 10 mg-325 mg 1 tabs PO once Route: PO; rv 23:43 Follow up: Response: Medication administered at discharge. rv 23:42 Drug: Ibuprofen PO 400 mg PO once Route: PO; rv 23:42 Follow up: Response: Medication administered at discharge. rv 23:42 Drug: Promethazine PO 25 mg PO once Route: PO; rv 23:42 Follow up: Response: Medication administered at discharge. rv Medication: 23:45 VIS not applicable for this client. rv Outcome: 23:29 Discharge ordered by . sp4 23:45 Discharged to home ambulatory, with family, rv 23:45 Condition: improved 23:45 Discharge instructions given to patient, Instructed on discharge instructions, follow up and referral plans. medication usage, Demonstrated understanding of instructions, follow-up care, medications, Prescriptions given X 3, 23:46 Patient left the ED. rv Signatures: Dispatcher [employer] EDMS Clemente Dodson RN RN rv [place] Contij6 Kaley Jennings RN RN ha1 Jameel Jaime MD MD sp4 Winifred Mariscal RN RN cm10
[2023-08-21 23:37] LABS: Specific Gravity 1.014 (1.005-1.030)
[2023-08-21] MEDS ORDERED: PROMETHAZINE 25 MG TABLET ONE (23:47)
[2023-08-21] MEDS ORDERED: HYDROCODONE/APAP 10/325 TAB ONE (23:47)
[2023-08-21] MEDS ORDERED: IBUPROFEN 400 MG TAB ONE (23:48)
[2023-08-22 16:14] VITALS: BP 120/76; TEMP 98.4; O2SAT 98
== END 2023-08-21 23:46 | disposition home or self-care (01) ==
LOC: ER 21:50
DX: T14.8XXA Other injury of unspecified body region, initial encounter (principal); M79.2 Neuralgia and neuritis, unspecified; Z88.1 Allergy status to other antibiotic agents; Z88.8 Allergy status to other drugs, medicaments and biological substances
CPT/HCPCS: 85025; 80048; 36415; 83735; 81025; 70450; 72125; 96375; 96374; 99284; Q0169; J2405

== ENCOUNTER 2023-09-24 13:42 | Emergency (ER) | payer BC ==
--- NOTE | 2023-09-24 15:06 | RAD REPORT ---
EXAM DESCRIPTION: RAD - Chest Single View - 09/24/2023 3:00 pm CLINICAL HISTORY: CHEST PAIN Chest pain. COMPARISON: Chest Single View dated 05/06/2023; Chest Single View dated 03/25/2023; Chest Single View dated 02/18/2023; Chest Pa And Lat (2 Views) dated 12/18/2022 FINDINGS: Portable technique limits examination quality. The lungs are grossly clear. The heart is normal in size. No displaced fractures. IMPRESSION: No acute intrathoracic process suspected.
[2023-09-24 15:27] LABS: Absolute Lymphocytes (CBC) 1.1 K/uL (0.7-4.9); Hematocrit 39.9 % (36.0-45.0); Lymphocytes % 20.3 % (15.3-44.8); MCV 88.4 fL (80-100); MPV 8.8 fL (7.6-11.3); Platelets 269 thou/uL (152-406); RBC Red Blood Cell Count 4.52 M/uL (3.86-4.86)
[2023-09-24] MEDS ORDERED: ASPIRIN 81 MG CHEWABLE TABLET ONE (15:36)
[2023-09-24] MEDS ORDERED: KETOROLAC 30 MG/ML INJ ONE (15:36)
[2023-09-24 15:48] LABS: Albumin 3.9 g/dL (3.4-5.0); Bilirubin Direct 0.1 mg/dL (0-0.2); Bilirubin Indirect, Calculated 0.2 mg/dL (0.2-0.8); Bilirubin Total 0.3 mg/dL (0.2-1.0); Magnesium 1.9 mg/dL (1.6-2.4); Potassium 3.5 mEq/L (3.5-5.1); Protein, Total 7.4 g/dL (6.4-8.2); Troponin High Sensitivity 3.4 pg/mL (<58.9)
--- NOTE | 2023-09-24 16:07 | ER ---
Nurse's Notes [facility] Name: Adelaide Larson Age: 23 yrs Sex: Female : 2000 Arrival Date: 09/24/2023 Time: 13:42 Bed Treatment Private MD: Diagnosis: Chest pain, unspecified Presentation: 09/24 14:02 Chief complaint: Patient states: chest pain, dizziness, feeling shaky, and nausea that aa5 began today. Coronavirus screen: nausea. Ebola Screen: Patient denies travel to an Ebola-affected area in the 21 days before illness onset. Initial Sepsis Screen: Does the patient meet any 2 criteria? HR > 90 bpm. Does the patient have a suspected source of infection? No. Patient's initial sepsis screen is negative. Risk Assessment: Do you want to hurt yourself or someone else? Patient reports no desire to harm self or others. Onset of symptoms was August 2023. 14:02 Acuity: LUIZ 3 aa5 14:02 Method Of Arrival: Ambulatory aa5 EXHIBIT ARTIST: 14:04 LMP 09/11/2023, unknown aa5 Historical: - Allergies: 14:03 Bactrim; aa5 14:03 Zithromax; aa5 14:03 Zosyn in dextrose (iso-osm); aa5 - PMHx: 14:03 Anxiety; Asthma; Depression; HYPOGLYCEMIA; Hypothyroidism; scoliosis; aa5 - Immunization history:: Adult Immunizations up to date. - Social history:: Smoking status: Patient denies any tobacco usage or history of. Screenin:38 [facility] ED Fall Risk Assessment (Adult) History of falling in the last 3 months, me1 including since admission No falls in past 3 months (0 pts) Confusion or Disorientation No (0 pts) Intoxicated or Sedated No (0 pts) Impaired Gait No (0 pts) Mobility Assist Device Used No (0 pt) Altered Elimination No (0 pt) Score/Fall Risk Level 0 - 2 = Low Risk Maintained a safe environment, Provided non-skid footwear, Hourly rounding (assess needs \T\ fall precautionary measures) done. Abuse screen: Denies threats or abuse. Nutritional screening: No deficits noted. Tuberculosis screening: No symptoms or risk factors identified. Assessment: 15:38 General: Appears uncomfortable, well groomed, well developed, well nourished, Behavior me1 is calm, cooperative, appropriate for age, Reports chest pain, dizziness, feeling shaky, and nausea that began today. Pain: Complains of pain in chest Pain does not radiate. Pain currently is 9 out of 10 on a pain scale. Quality of pain is described as sharp, Pain began suddenly, while sleeping. Chest pain woke her up. Neuro: Level of Consciousness is awake, alert, obeys commands, Oriented to person, place, time, situation, Appropriate for age Reports dizziness. Cardiovascular: Reports chest pain, lightheadedness, nausea, since the pain woke her up this morning while sleeping. Capillary refill < 3 seconds Patient's skin is warm and dry. Respiratory: Reports shortness of breath at rest intermittently with chest pain. Airway is patent Respiratory effort is even, unlabored, Respiratory pattern is regular, symmetrical. GI: Reports nausea. Vital Signs: 14:02 BP 140 / 92; Pulse 115; Resp 18 S; Temp 98.5(O); Pulse Ox 98% on R/A; Weight 86.18 kg aa5 (R); Height 4 ft. 11 in. (R); 15:15 BP 110 / 81; Pulse 91; Resp 18; Pulse Ox 99% on R/A; me1 15:15 BP 111 / 71; Pulse 84; Resp 18; Pulse Ox 99% on R/A; me1 14:02 Body Mass Index 38.37 (86.18 kg, 149.86 cm) aa5 ED Course: 13:44 Patient arrived in ED. mg5 13:44 Ramiro Ignacio DO is Attending Physician. ms3 14:03 Triage completed. aa5 14:03 Arm band placed on. aa5 14:54 XRAY Chest (1 view) In Process Unspecified. EDMS 15:15 Natalie Paredes, RN is Primary Nurse. iw 15:16 Initial lab(s) drawn, by me, sent to lab. Inserted saline lock: 22 gauge in left iw antecubital area, using aseptic technique. Blood collected. 15:38 Patient has correct armband on for positive identification. Bed in low position. Call me1 light in reach. Side rails up X 1. Provided Education on: POC. Verbalized understanding. . Client placed on continuous cardiac and pulse oximetry monitoring. NIBP monitoring applied. monitoring coordinator on. 15:38 No provider procedures requiring assistance completed. Patient maintains SpO2 me1 saturation greater than 95% on room air. 16:06 Ori Serrato DO is Referral Physician. ms3 16:46 IV discontinued, intact, bleeding controlled, No redness/swelling at site. Pressure me1 dressing applied. Administered Medications: 15:37 Drug: Aspirin PO Chewable Tablet 324 mg PO once; 81 mg tablets x 4 Route: PO; iw 15:37 Follow up: Response: No adverse reaction me1 15:37 Drug: Ketorolac IVP 15 mg IVP once Route: IVP; Site: left antecubital; iw 16:08 Follow up: Response: No adverse reaction; Pain is unchanged, physician notified me1 16:19 Drug: HYDROcodone-acetaminophen PO 5 mg-325 mg 1 tabs PO once Route: PO; me1 16:46 Follow up: Response: No adverse reaction me1 Medication: 15:38 VIS not applicable for this client. me1 Outcome: 16:06 Discharge ordered by MD. ms3 16:45 Discharged to home ambulatory, me1 16:45 Condition: stable 16:45 Discharge instructions given to patient, Instructed on discharge instructions, follow up and referral plans. Demonstrated understanding of instructions, follow-up care, 16:46 Patient left the ED. me1 Signatures: Dispatcher [employer] Natalie Donaldson RN RN iw Jesi Peterson RN RN aa5 Ramiro Ignacio DO DO ms3 Nara Pan RN RN me1 Kirsty Ball mg5 Corrections: (The following items were deleted from the chart) 15:38 14:02 Chief complaint: Patient states: chest pain, dizziness, feeling shaky, and nausea me1 that began today. aa5
--- NOTE | 2023-09-24 16:07 | EDPHYS ---
Physician Documentation [facility] Name: Adelaide Larson Age: 23 yrs Sex: Female : 2000 Arrival Date: 09/24/2023 Time: 13:42 Bed Treatment Private MD: ED Physician Ramiro Ignacio HPI: 09/24 16:07 This 23 yrs old Female presents to ER via Ambulatory with complaints of Chest Pain. ms3 16:07 23-year-old female with past medical history of anxiety, asthma, depression, ms3 hypoglycemia, hypothyroidism, scoliosis presents to the emergency department for chest pain that began this morning. Patient states the pain is sharp/pressure/sensation of a racing heart. Patient rates pain is an 8/10. Patient endorses shortness of breath, nausea, dizziness. Patient denies vomiting. Patient denies taking hormones. 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 - Social history:: Smoking status: Patient denies any tobacco usage or history of. ROS: 16:10 Constitutional: Negative for fever, and chills. Neck: Negative for injury, pain, and ms3 swelling, Respiratory: Negative for shortness of breath, cough, wheezing, and pleuritic chest pain, Abdomen/GI: Negative for abdominal pain, nausea, vomiting, diarrhea, and constipation, MS/Extremity: Negative for injury and deformity, Skin: Negative for injury, rash, and discoloration, 16:10 Cardiovascular: Positive for chest pain, 16:10 All other systems are negative, Exam: 16:10 Constitutional: This is a well developed, well nourished patient who is awake, alert, ms3 and in no acute distress. Head/Face: Normocephalic, atraumatic. Chest/axilla: Normal chest wall appearance and motion. Nontender with no deformity. Cardiovascular: Regular rate and rhythm with a normal S1 and S2. No gallops, murmurs, or rubs. Normal PMI, no JVD. No pulse deficits. Respiratory: Lungs have equal breath sounds bilaterally, clear to auscultation and percussion. No rales, rhonchi or wheezes noted. No increased work of breathing, no retractions or nasal flaring. Abdomen/GI: Soft, non-tender, with normal bowel sounds. No distension or tympany. No guarding or rebound. No evidence of tenderness throughout. Skin: Warm, dry with normal turgor. Normal color with no rashes, no lesions, and no evidence of cellulitis. MS/ Extremity: Pulses equal, no cyanosis. Neurovascular intact. Full, normal range of motion. 16:13 ECG was reviewed by the Attending Physician. ms3 Vital Signs: 14:02 BP 140 / 92; Pulse 115; Resp 18 S; Temp 98.5(O); Pulse Ox 98% on R/A; Weight 86.18 kg aa5 (R); Height 4 ft. 11 in. (R); 15:15 BP 110 / 81; Pulse 91; Resp 18; Pulse Ox 99% on R/A; me1 15:15 BP 111 / 71; Pulse 84; Resp 18; Pulse Ox 99% on R/A; me1 14:02 Body Mass Index 38.37 (86.18 kg, 149.86 cm) aa5 MDM: 13:58 Patient medically screened. ms3 16:10 Differential diagnosis: abnormal EKG, coronary artery disease costochondritis. HEART ms3 Score: History: Slightly Suspicious (0), ECG: Normal (0), Age: < or = 45 years (0), Risk Factors: No Risk Factors Known (0), Troponin: < or = 1 x Normal Limit (0), Total Score = 0. Data reviewed: vital signs, nurses notes, and as a result, I will discharge patient. Consideration of Admission/Observation Escalation of care including admission/observation considered. Heart score = 0. I considered the following discharge prescriptions or medication management in the emergency department Medications were administered in the Emergency Department. See MAR. Independent interpretation of the following test(s) in the Emergency Department EKG: See my EKG interpretation above. Historians other than the Patient: EMS: . Counseling: I had a detailed discussion with the patient and/or guardian regarding the historical points, exam findings, and any diagnostic results supporting the discharge/admit diagnosis, lab results, radiology results, the need for outpatient follow up, to return to the emergency department if symptoms worsen or persist or if there are any questions or concerns that arise at home. Special discussion: Based on the patient's history, exam, and Dx evaluation, there is no indication for emergent intervention or inpatient Tx. It is understood by the patient/guardian that if the Sx's persist or worsen they need to return immediately for re-evaluation. ED course: Discussed labs, EKG, chest x-ray with patient. Patient to follow-up with primary care physician in 2 to 3 days. Patient understands and agrees plan. All questions were answered. Return precautions discussed include worsening symptoms, or any other concerns.. 09/24 13:59 Order name: Basic Metabolic Panel; Complete Time: 16:02 ms3 09/24 13:59 Order name: CBC with Diff; Complete Time: 15:48 ms3 09/24 13:59 Order name: D-Dimer; Complete Time: 15:48 ms3 09/24 13:59 Order name: LFT's; Complete Time: 16:02 ms3 09/24 13:59 Order name: Magnesium; Complete Time: 16:02 ms3 09/24 13:59 Order name: Troponin HS; Complete Time: 16:02 ms3 09/24 13:59 Order name: XRAY Chest (1 view); Complete Time: 15:25 ms3 09/24 13:59 Order name: EKG; Complete Time: 14:00 ms3 09/24 13:59 Order name: Cardiac monitoring; Complete Time: 16:46 ms3 09/24 13:59 Order name: EKG - Nurse/Tech; Complete Time: 16:46 ms3 09/24 13:59 Order name: IV Saline Lock; Complete Time: 16:46 ms3 09/24 13:59 Order name: Labs collected and sent; Complete Time: 16:46 ms3 09/24 13:59 Order name: O2 Per Protocol; Complete Time: 16:46 ms3 09/24 13:59 Order name: O2 Sat Monitoring; Complete Time: 16:46 ms3 EC:13 Rate is 92 beats/min. Rhythm is regular. QRS [place] is Normal. [place] interval is normal. QRS ms3 interval is normal. QT interval is normal. Clinical impression: NSR w/ Non-specific ST/T Changes. Interpreted by me. Reviewed by me. Administered Medications: 15:37 Drug: Aspirin PO Chewable Tablet 324 mg PO once; 81 mg tablets x 4 Route: PO; iw 15:37 Follow up: Response: No adverse reaction me1 15:37 Drug: Ketorolac IVP 15 mg IVP once Route: IVP; Site: left antecubital; iw 16:08 Follow up: Response: No adverse reaction; Pain is unchanged, physician notified me1 16:19 Drug: HYDROcodone-acetaminophen PO 5 mg-325 mg 1 tabs PO once Route: PO; me1 16:46 Follow up: Response: No adverse reaction me1 Disposition Summary: 09/24/23 16:06 Discharge Ordered Notes: Location: Home ms3 Condition: Stable ms3 Diagnosis - Chest pain, unspecified ms3 Followup: ms3 - With: Ori Serrato DO - When: 2 - 3 days - Reason: Recheck today's complaints Discharge Instructions: - Discharge Summary Sheet ms3 - Nonspecific Chest Pain, Adult ms3 Forms: - Medication Reconciliation Form ms3 - Thank You Letter ms3 - Antibiotic Education ms3 - Prescription Opioid Use ms3 - Patient Portal Instructions ms3 - Leadership Thank You Letter ms3 Signatures: Dispatcher [employer] Natalie Donaldson RN RN Jesi Peterson RN RN aa5 Ramiro Ignacio DO DO ms3 Nara Pan, RN RN me1 Corrections: (The following items were deleted from the chart) 16:10 16:07 23-year-old female with past medical history of anxiety, asthma, depression, ms3 hypoglycemia, hypothyroidism, scoliosis presents to the emergency department for. ms3
[2023-09-24] MEDS ORDERED: HYDROCODONE/APAP 5/325 MG TAB ONE (16:23)
[2023-09-24 17:35] VITALS: TEMP 98.5
[2023-09-24 17:37] VITALS: BP 111/71; O2SAT 99
--- NOTE | 2023-09-26 15:21 | EKG ---
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
== END 2023-09-24 16:46 | disposition home or self-care (01) ==
LOC: ER 13:42
DX: R07.89 Other chest pain (principal); F41.9 Anxiety disorder, unspecified; Z88.1 Allergy status to other antibiotic agents; Z88.8 Allergy status to other drugs, medicaments and biological substances
CPT/HCPCS: 36415; 71045; 80048; 80076; 83735; 84484; 85025; 85379; 93005; 96374; 99285

== ENCOUNTER 2023-10-06 01:07 | Emergency (ER) | payer BC ==
[2023-10-06 01:50] LABS: Absolute Lymphocytes (CBC) 1.9 K/uL (0.7-4.9); Hematocrit 37.7 % (36.0-45.0); Lymphocytes % 24.6 % (15.3-44.8); MCV 88.3 fL (80-100); MPV 9.2 fL (7.6-11.3); Platelets 245 thou/uL (152-406); RBC Red Blood Cell Count 4.27 M/uL (3.86-4.86)
[2023-10-06] MEDS ORDERED: ONDANSETRON 4 MG/2 ML VIAL ONE (01:52)
[2023-10-06] MEDS ORDERED: NA CHLORIDE 0.9% 1,000 ML ONE (01:52)
[2023-10-06] MEDS ORDERED: KETOROLAC 30 MG/ML INJ ONE (01:52)
[2023-10-06] MEDS ORDERED: MORPHINE 4 MG/ML SYR ONE (01:52)
[2023-10-06 01:53] LABS: Specific Gravity 1.011 (1.005-1.030); Urine Bacteria <20 /HPF (<20); Urine Bilirubin NEGATIVE (Negative); Urine Blood Negative (Negative); Urine Clarity Turbid (Clear); Urine Color Light-Yellow (Yellow); Urine Glucose NEGATIVE (Negative); Urine Mucus Slight /HPF (None Seen); Urine Protein NEGATIVE (Negative); Urine RBC <5 /HPF (None Seen); Urine Urobilinogen Normal (Normal)
[2023-10-06 02:06] LABS: Albumin 3.4 g/dL (3.4-5.0); Bilirubin Total 0.2 mg/dL (0.2-1.0); Potassium 3.7 mEq/L (3.5-5.1); Protein, Total 7.1 g/dL (6.4-8.2)
--- NOTE | 2023-10-06 02:29 | ER ---
Nurse's Notes [facility] Name: Adelaide Larson Age: 23 yrs Sex: Female : 2000 Arrival Date: 10/06/2023 Time: 01:07 Bed 4 Private MD: Diagnosis: UTI/ Urinary tract infection, site not specified Presentation: 10/06 01:15 Chief complaint: Patient states: lower back pain, radiates to the left side, sharp rv pain, started yesterday, 8/10 pain scale, constant pain, with nausea, no vomiting/diarrhea. dysuria and frequency of urination. Coronavirus screen: At this time, the client does not indicate any symptoms associated with coronavirus-19. Ebola Screen: No symptoms or risks identified at this time. Initial Sepsis Screen: Does the patient meet any 2 criteria? No. Patient's initial sepsis screen is negative. Does the patient have a suspected source of infection? No. Patient's initial sepsis screen is negative. Risk Assessment: Do you want to hurt yourself or someone else? Patient reports no desire to harm self or others. Onset of symptoms was October 06, 2023. 01:15 Method Of Arrival: Ambulatory rv 01:15 Acuity: LUIZ 3 rv Triage Assessment: 01:17 General: Appears comfortable, Behavior is calm, cooperative. Pain: Complains of pain in rv back. Neuro: Level of Consciousness is awake, alert, obeys commands, Oriented to person, place, time, situation. Cardiovascular: Capillary refill < 3 seconds Patient's skin is warm and dry. Respiratory: Airway is patent Respiratory effort is even, unlabored. GI: Abdomen is round non-distended. : Reports burning with urination, urgency, urinary frequency. Derm: Skin is intact. Historical: - Allergies: 01:17 Bactrim; rv 01:17 Zithromax; rv 01:17 Zosyn in dextrose (iso-osm); rv - PMHx: 01:17 Anxiety; Asthma; Depression; HYPOGLYCEMIA; scoliosis; Hypothyroidism; rv - PSHx: 01:17 hip surgery (Hypothyroidism); Cholecystectomy; Appendectomy; rv - Immunization history:: Adult Immunizations up to date. - Social history:: Smoking status: Patient denies any tobacco usage or history of. - Family history:: not pertinent. Screenin:47 [facility] ED Fall Risk Assessment (Adult) History of falling in the last 3 months, km8 including since admission No falls in past 3 months (0 pts) Confusion or Disorientation No (0 pts) Intoxicated or Sedated No (0 pts) Impaired Gait No (0 pts) Mobility Assist Device Used No (0 pt) Altered Elimination No (0 pt) Score/Fall Risk Level 0 - 2 = Low Risk Oriented to surroundings, Maintained a safe environment, Educated pt \T\ family on fall prevention, incl call for assistance when getting out of bed, Assessed \T\ reinforced patient's understanding of fall precautions. Abuse screen: Denies threats or abuse. Denies injuries from another. Nutritional screening: No deficits noted. Tuberculosis screening: No symptoms or risk factors identified. Assessment: 01:47 General: Appears in no apparent distress. comfortable, Behavior is calm, cooperative, km8 appropriate for age. Pain: Complains of pain in right mid back Pain currently is 8 out of 10 on a pain scale. Neuro: Wolff Agitation-Sedation Scale (RASS): 0 - Alert and Calm Level of Consciousness is awake, alert, obeys commands, Oriented to person, place, time, situation. Cardiovascular: Capillary refill < 3 seconds Patient's skin is warm and dry. Respiratory: Airway is patent Respiratory effort is even, unlabored, Respiratory pattern is regular, symmetrical. GI: No signs and/or symptoms were reported involving the gastrointestinal system. Abdomen is obese, Bowel sounds present X 4 quads. Abdomen is tender to palpation in left upper quadrant and left lower quadrant. : No signs and/or symptoms were reported regarding the genitourinary system. EENT: No signs and/or symptoms were reported regarding the EENT system. Derm: No signs and/or symptoms reported regarding the dermatologic system. Skin is intact, is healthy with good turgor, Skin is dry, Skin is pink, warm \T\ dry. normal, Skin temperature is warm. Musculoskeletal: No signs and/or symptoms reported regarding the musculoskeletal system. Circulation, motion, and sensation intact. Range of motion: intact in all extremities. 02:30 Reassessment: Patient and/or family updated on plan of care and expected duration. Pain ha1 level reassessed. Patient is alert, oriented x 3, equal unlabored respirations, skin warm/dry/pink. pain 2/10 Patient states feeling better. Patient states symptoms have improved. Vital Signs: 01:15 BP 135 / 77; Pulse 100; Resp 19; Temp 98; Pulse Ox 100% ; Weight 86.18 kg; Height 4 ft. rv 11 in. ; Pain 8/10; 02:05 BP 132 / 79; Pulse 95; Resp 17 S; Pulse Ox 100% on R/A; ha1 02:30 BP 127 / 85; Pulse 72; Resp 17 S; Pulse Ox 100% on R/A; ha1 01:15 Body Mass Index 38.37 (86.18 kg, 149.86 cm) rv 01:15 Pain Scale: Adult rv Jeromy Coma Score: 01:47 Eye Response: spontaneous(4). Motor Response: obeys commands(6). Verbal Response: km8 oriented(5). Total: 15. ED Course: 01:11 Patient arrived in ED. gm2 01:16 Davidson Vallejo MD is Attending Physician. rt 01:17 Triage completed. rv 01:17 Arm band placed on right wrist. rv 01:47 Aleja Caldwell RN is Primary Nurse. km8 01:47 Patient has correct armband on for positive identification. Bed in low position. Call km8 light in reach. Side rails up X 1. Pulse ox on. NIBP on. 01:47 No provider procedures requiring assistance completed. Patient maintains SpO2 km8 saturation greater than 95% on room air. 01:49 Lipase Sent. km8 01:49 UAM Sent. km8 01:49 CMP Sent. km8 01:49 CBC with Diff Sent. km8 01:50 Missed attempt(s): 20 gauge in right antecubital area. Bleeding controlled, band aid km8 applied, catheter tip intact. 02:00 Inserted saline lock: 20 gauge in left antecubital area, using aseptic technique. Blood ha1 collected. Administered Medications: 01:55 Drug: Ketorolac IVP 15 mg IVP once Route: IVP; Site: left forearm; ha1 02:30 Follow up: Response: No adverse reaction; Pain is decreased ha1 01:56 Drug: Ondansetron IVP 4 mg IVP once; over 2 minutes Route: IVP; Site: left forearm; ha1 02:30 Follow up: Response: No adverse reaction ha1 01:58 Drug: morphine IVP or IV 4 mg IVP once over 4 mins Route: IVP; Infused Over: 4 mins; ha1 Site: left forearm; 02:30 Follow up: Response: No adverse reaction; Pain is decreased; RASS: Alert and Calm (0) ha1 01:58 Drug: NS 0.9% IV 1000 ml IV at 1000 ml once Route: IV; Rate: 1000 ml; Site: left ha1 forearm; 02:59 Follow up: Response: No adverse reaction; IV Status: Completed infusion; IV Intake: ha1 1000ml Medication: 01:47 VIS not applicable for this client. km8 Intake: 02:59 IV: 1000ml; Total: 1000ml. ha1 Outcome: 02:29 Discharge ordered by . rt 03:01 Patient left the ED. ha1 Signatures: Clemente Dodson RN RN rv Kaley Jennings RN RN ha1 Davidson Vallejo MD MD rt Nasima Sotomayor 2 Aleja Caldwell RN RN km8 Corrections: (The following items were deleted from the chart) 03:00 02:45 Reassessment: Patient and/or family updated on plan of care and expected ha1 duration. Pain level reassessed. Patient is alert, oriented x 3, equal unlabored respirations, skin warm/dry/pink. pain 2/10 Patient states feeling better. Patient states symptoms have improved. ha1 03:00 02:45 BP 127 / 85; Pulse 72bpm; Resp 17bpm; Spontaneous; Pulse Ox 100% RA; ha1 ha1
--- NOTE | 2023-10-06 02:29 | EDPHYS ---
Physician Documentation [facility] Name: Adelaide Larson Age: 23 yrs Sex: Female : 2000 Arrival Date: 10/06/2023 Time: 01:07 Bed 4 Private MD: ED Physician Davidson Vallejo HPI: 10/06 01:54 This 23 yrs old Female presents to ER via Ambulatory with complaints of Abdominal Pain, rt Back Pain. 01:54 Patient presents to the ED with a sharp left flank pain rating to the left anterior rt abdomen and lower starting this evening. Reports it is similar to previous kidney stone, pyelonephritis. The patient reports nausea without vomiting. Motrin and Tylenol did not adequately improve her symptoms, no other aggravating elevating factors. Symptoms are moderate in severity.. Historical: - Allergies: 01:17 Bactrim; rv 01:17 Zithromax; rv 01:17 Zosyn in dextrose (iso-osm); rv - PMHx: 01:17 Anxiety; Asthma; Depression; HYPOGLYCEMIA; scoliosis; Hypothyroidism; rv - PSHx: 01:17 hip surgery (Hypothyroidism); Cholecystectomy; Appendectomy; rv - Immunization history:: Adult Immunizations up to date. - Social history:: Smoking status: Patient denies any tobacco usage or history of. - Family history:: not pertinent. ROS: 01:54 Constitutional: Negative for fever, chills, and weight loss, Cardiovascular: Negative rt for chest pain, palpitations, and edema, Respiratory: Negative for shortness of breath, cough, wheezing, and pleuritic chest pain, MS/Extremity: Negative for injury and deformity, Skin: Negative for injury, rash, and discoloration, Neuro: Negative for headache, weakness, numbness, tingling, and seizure, Psych: Negative for depression, anxiety, suicide ideation, homicidal ideation, and hallucinations, 01:54 Abdomen/GI: Positive for abdominal pain, nausea, 01:54 Back: Positive for flank pain, Negative for injury or acute deformity, Exam: 01:54 Constitutional: This is a well developed, well nourished patient who is awake, alert, rt and in no acute distress. Head/Face: Normocephalic, atraumatic. Chest/axilla: Normal chest wall appearance and motion. Nontender with no deformity. No lesions are appreciated. Cardiovascular: Regular rate and rhythm with a normal S1 and S2. No gallops, murmurs, or rubs. Normal PMI, no JVD. No pulse deficits. Respiratory: Lungs have equal breath sounds bilaterally, clear to auscultation and percussion. No rales, rhonchi or wheezes noted. No increased work of breathing, no retractions or nasal flaring. Skin: Warm, dry with normal turgor. Normal color with no rashes, no lesions, and no evidence of cellulitis. MS/ Extremity: Pulses equal, no cyanosis. Neurovascular intact. Full, normal range of motion. Neuro: Awake and alert, GCS 15, oriented to person, place, time, and situation. Cranial nerves II-XII grossly intact. Motor strength 5/5 in all extremities. Sensory grossly intact. Cerebellar exam normal. Normal gait. Psych: Awake, alert, with orientation to person, place and time. Behavior, mood, and affect are within normal limits. 01:54 Abdomen/GI: Tenderness to the left upper quadrant without guarding, rebound, distention, 01:54 Back: Left costovertebral angle tenderness, no midline tenderness, Vital Signs: 01:15 BP 135 / 77; Pulse 100; Resp 19; Temp 98; Pulse Ox 100% ; Weight 86.18 kg; Height 4 ft. rv 11 in. ; Pain 8/10; 02:05 BP 132 / 79; Pulse 95; Resp 17 S; Pulse Ox 100% on R/A; ha1 02:30 BP 127 / 85; Pulse 72; Resp 17 S; Pulse Ox 100% on R/A; ha1 01:15 Body Mass Index 38.37 (86.18 kg, 149.86 cm) rv 01:15 Pain Scale: Adult rv Jeromy Coma Score: 01:47 Eye Response: spontaneous(4). Motor Response: obeys commands(6). Verbal Response: km8 oriented(5). Total: 15. MDM: 01:25 Patient medically screened. rt 02:29 Differential diagnosis: UTI, pyelonephritis, mechanical back pain. Data reviewed: vital rt signs, nurses notes, lab test result(s). Test considered but Not performed: CT: Patient with significant radiation exposure, no RBCs in the urine, symptoms are improving treatment in the ED, will treat for UTI given urinalysis results, upper, have a lower suspicion for infected stone, patient is afebrile with no white count. Will spare patient CT scan today, return precautions discussed. Counseling: I had a detailed discussion with the patient and/or guardian regarding the historical points, exam findings, and any diagnostic results supporting the discharge/admit diagnosis, lab results, the need for outpatient follow up, to return to the emergency department if symptoms worsen or persist or if there are any questions or concerns that arise at home. Response to treatment: the patient's symptoms have markedly improved after treatment. 10/06 01:30 Order name: CBC with Diff; Complete Time: 02:24 rt 10/06 01:30 Order name: CMP; Complete Time: 02:24 rt 10/06 01:30 Order name: UAM; Complete Time: 02:24 rt 10/06 01:30 Order name: Lipase; Complete Time: 02:24 rt 10/06 01:57 Order name: Urine Culture EDMS Administered Medications: 01:55 Drug: Ketorolac IVP 15 mg IVP once Route: IVP; Site: left forearm; ha1 02:30 Follow up: Response: No adverse reaction; Pain is decreased ha1 01:56 Drug: Ondansetron IVP 4 mg IVP once; over 2 minutes Route: IVP; Site: left forearm; ha1 02:30 Follow up: Response: No adverse reaction ha1 01:58 Drug: morphine IVP or IV 4 mg IVP once over 4 mins Route: IVP; Infused Over: 4 mins; ha1 Site: left forearm; 02:30 Follow up: Response: No adverse reaction; Pain is decreased; RASS: Alert and Calm (0) ha1 01:58 Drug: NS 0.9% IV 1000 ml IV at 1000 ml once Route: IV; Rate: 1000 ml; Site: left ha1 forearm; 02:59 Follow up: Response: No adverse reaction; IV Status: Completed infusion; IV Intake: ha1 1000ml Disposition Summary: 10/06/23 02:29 Discharge Ordered Notes: Location: Home rt Problem: new rt Symptoms: have improved rt Condition: Stable rt Diagnosis - UTI/ Urinary tract infection, site not specified rt Followup: rt - With: Private Physician - When: 2 - 3 days - Reason: Discharge Instructions: - Discharge Summary Sheet rt - Urinary Tract Infection, Adult rt Forms: - Medication Reconciliation Form rt - Thank You Letter rt - Antibiotic Education rt - Prescription Opioid Use rt - Patient Portal Instructions rt - Leadership Thank You Letter rt Prescriptions: - cefpodoxime 200 mg Oral tablet - take 1 tablet ORAL route every 12 hours with food; 14 tablet; Refills: 0, rt Product Selection Permitted Signatures: Dispatcher [employer] Clemente Pond RN RN rv Ayala, Heidy, RN RN ha1 Davidson Vallejo MD MD rt
[2023-10-06 03:17] VITALS: TEMP 98; O2SAT 100
[2023-10-06 03:28] VITALS: BP 127/85
== END 2023-10-06 03:01 | disposition home or self-care (01) ==
LOC: ER 01:07
DX: N39.0 Urinary tract infection, site not specified (principal); M54.59 Other low back pain; R11.0 Nausea; R30.0 Dysuria; E16.2 Hypoglycemia, unspecified; E03.9 Hypothyroidism, unspecified; Z88.8 Allergy status to other drugs, medicaments and biological substances
CPT/HCPCS: 96361; 87088; 85025; 81001; 87086; 36415; 83690; 80053; 96375; 96374; 99284; J2405; J7030

== ENCOUNTER → 2023-12-21 | Emergency (ER) | payer BC ==
[~2023-12-21] MED LIST: ALBUTEROL 2.5 MG/3 ML NEB SOL ONE; HYDROCODONE/APAP 7.5/325 MG TAB ONE; IPRATROPIUM BROM 0.5MG/2.5ML ONE; KETOROLAC 30 MG/ML INJ ONE; METHYLPREDNISOLONE 125 MG INJ ONE; MORPHINE 4 MG/ML SYR ONE; ONDANSETRON 4 MG/2 ML VIAL ONE
[2023-12-21 01:37] LABS: Absolute Lymphocytes (CBC) 1.7 K/uL (0.7-4.9); Hematocrit 38.7 % (36.0-45.0); Lymphocytes % 27.9 % (15.3-44.8); MCV 86.7 fL (80-100); MPV 9.2 fL (7.6-11.3); Platelets 262 thou/uL (152-406); RBC Red Blood Cell Count 4.47 M/uL (3.86-4.86)
[2023-12-21 01:44] LABS: Specific Gravity 1.008 (1.005-1.030)
[2023-12-21 01:48] LABS: Specific Gravity 1.008 (1.005-1.030); Urine Bacteria <20 /HPF (<20); Urine Bilirubin NEGATIVE (Negative); Urine Blood Negative (Negative); Urine Clarity Clear (Clear); Urine Color Colorless (Yellow); Urine Glucose NEGATIVE (Negative); Urine Protein NEGATIVE (Negative); Urine RBC <5 /HPF (None Seen); Urine Urobilinogen Normal (Normal)
[2023-12-21 01:54] LABS: Albumin 3.9 g/dL (3.4-5.0); Bilirubin Total 0.2 mg/dL (0.2-1.0); Potassium 3.5 mEq/L (3.5-5.1); Protein, Total 7.3 g/dL (6.4-8.2)
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
[2023-12-21 05:05] VITALS: BP 109/71; TEMP 97.1; O2SAT 100
--- NOTE | 2023-12-21 19:15 | RAD REPORT ---
EXAM DESCRIPTION: CT - Abdomen Pelvis W Contrast - 12/21/2023 4:38 am CLINICAL HISTORY: The patient is 23 years old and is Female; left lower abdomen pain TECHNIQUE: Axial computed tomography images of the abdomen and pelvis with intravenous contrast. S agittal and coronal reformatted images were created and reviewed. This CT exam was performed using one or more of the following dose reduction techniques: automated exposure control, adjustment of t he mA and/or kV according to patient size, and/or use of iterative reconstruction technique. COMPARISON: No relevant prior studies available. FINDINGS: Lung bases: Unremarkable. No mass. No consolidation. ABDOMEN: Liver: Diffuse hepatic steatosis. Gallbladder and bile ducts: Gallbladder is surgically absent. No ductal dilation. Pancreas: Unremarkable. No mass. No ductal dilation. Spleen: Unremarkable. No splenomegaly. Adrenals: Unremarkable. No mass. Kidneys and ureters: Nonobstructing calcification in the left kidney. Stomach and bowel: Unremarkable. No obstruction. No mucosal thickening. PELVIS: Appendix: Suggestion of prior appendectomy. Bladder: Unremarkable. Reproductive: Unremarkable as visualized. ABDOMEN and PELVIS: Intraperitoneal space: Unremarkable. No free air. No significant fluid collection. Bones/joints: No acute fracture. No dislocation. Soft tissues: Unremarkable. Vasculature: Unremarkable. No abdominal aortic aneurysm. Lymph nodes: Unremarkable. No enlarged lymph nodes. IMPRESSION: No acute finding in the abdomen/pelvis. Electronically signed by: Shun Abarca MD 12/21/2023 03:29 AM CLUTCH OPERATOR Due to temporary technical issues with the PACS/Fluency reporting system, reports are being signed by the in house radiologists without review as a courtesy to insure prompt reporting. The interpreting radiologist is fully responsible for the content of the report.
--- NOTE | 2023-12-21 19:20 | RAD REPORT ---
EXAM DESCRIPTION: RAD - Chest Pa And Lat (2 Views) - 12/21/2023 1:56 am CLINICAL HISTORY: The patient is 23 years old and is Female; SOB TECHNIQUE: Frontal and lateral views of the chest. COMPARISON: No relevant prior studies available. FINDINGS: Lungs: Unremarkable. No consolidation. Pleural space: Unremarkable. No pneumothorax. Heart: Unremarkable. Mediastinum: Unremarkable. Normal mediastinal contour. Bones/joints: No acute findings. IMPRESSION: No acute findings in the chest. Electronically signed by: Shun Abarca MD 12/21/2023 02:44 AM DECORATIVE CUTTING MACHINE TENDER Due to temporary technical issues with the PACS/Fluency reporting system, reports are being signed by the in house radiologists without review as a courtesy to insure prompt reporting. The interpreting radiologist is fully responsible for the content of the report.
== END ==
LOC: ER 00:43
DX: J45.901 Unspecified asthma with (acute) exacerbation (principal); R10.32 Left lower quadrant pain; Z88.1 Allergy status to other antibiotic agents; Z88.8 Allergy status to other drugs, medicaments and biological substances; Z28.310 Unvaccinated for COVID-19
CPT/HCPCS: 85025; 81001; 36415; 81025; 83690; 80053; 74177; 71046; Q9967; J7613; J7644; J2930; J2405; 94640; 99285

== ENCOUNTER 2024-02-14 22:45 | Emergency (ER) | payer BC ==
[2024-02-14] MEDS ORDERED: KETOROLAC 30 MG/ML INJ ONE (23:08)
[2024-02-14] MEDS ORDERED: NA CHLORIDE 0.9% 1,000 ML ONE (23:08)
[2024-02-14 23:18] LABS: Specific Gravity 1.006 (1.005-1.030); Sqamous Epithelial <5 /HPF (None Seen); Urine Bacteria None Seen /HPF (<20); Urine Bilirubin NEGATIVE (Negative); Urine Blood Negative (Negative); Urine Clarity Clear (Clear); Urine Color Colorless (Yellow); Urine Culture Reflex Order NOT NEEDED; Urine Glucose NEGATIVE (Negative); Urine Ketones NEGATIVE (Negative); Urine Microscopic Reflex YN ORDER UMIC; Urine Nitrite NEGATIVE (Negative); Urine Protein NEGATIVE (Negative); Urine RBC <5 /HPF (None Seen); Urine Urobilinogen Normal (Normal); Urine WBC <5 /HPF (<5)
[2024-02-14 23:19] LABS: Specific Gravity 1.006 (1.005-1.030)
[2024-02-14 23:21] LABS: Absolute Basophils 0.1 K/uL (0-0.5); Absolute Eosinophils 0.3 K/uL (0-0.5); Absolute Lymphocytes (CBC) 1.5 K/uL (0.7-4.9); Absolute Monocytes 0.4 K/uL (0.1-1.3); Absolute Neutrophil 3.1 K/uL (1.8-8.0); Basophils % 1.1 % (0-1.3); Eosinophils % 5.1 % (0-4.4); Hematocrit 37.2 % (36.0-45.0); Hemoglobin 12.4 g/dL (12.0-15.0); Lymphocytes % 28.1 % (15.3-44.8); MCH 28.9 pg (27.0-35.0); MCHC 33.2 g/dL (32.0-36.0); MPV 8.8 fL (7.6-11.3); Monocytes % 7.4 % (3.3-12.3); Neutrophils % 58.3 % (41.7-73.7); Nucleated Red Blood Cells % 0.2 % (0-0); Platelets 260 thou/uL (152-406); RBC Red Blood Cell Count 4.28 M/uL (3.86-4.86); Red Cell Distribution Width 14.6 % (12.1-15.2)
[2024-02-14 23:32] LABS: Albumin 3.7 g/dL (3.4-5.0); Albumin/Globulin Ratio 1.2 (1.1-1.8); Anion Gap 10.7 mEq/L (5.0-15.0); Bilirubin Total 0.2 mg/dL (0.2-1.0); Globulin 3.2 g/dL (2.3-3.5); Potassium 3.7 mEq/L (3.5-5.1); Protein, Total 6.9 g/dL (6.4-8.2)
[2024-02-15] MEDS ORDERED: KETOROLAC 30 MG/ML INJ ONE (00:10)
--- NOTE | 2024-02-15 00:25 | ER ---
Nurse's Notes [facility] Name: Adelaide Larson Age: 24 yrs Sex: Female : 2000 Arrival Date: 02/14/2024 Time: 22:45 Bed 8 Private MD: Diagnosis: Abdominal pain, Generalized Presentation: 02/13 22:53 Chief complaint: Patient states: I have severe right side abd pain that began Saturday bm8 night. it is radiating down into the pelvic area. Coronavirus screen: At this time, the client does not indicate any symptoms associated with coronavirus-19. Ebola Screen: Patient negative for fever greater than or equal to 101.5 degrees Fahrenheit, and additional compatible Ebola Virus Disease symptoms Patient denies exposure to infectious person. Patient denies travel to an Ebola-affected area in the 21 days before illness onset. No symptoms or risks identified at this time. Initial Sepsis Screen: Does the patient meet any 2 criteria? No. Patient's initial sepsis screen is negative. Does the patient have a suspected source of infection? No. Patient's initial sepsis screen is negative. Risk Assessment: Do you want to hurt yourself or someone else? Patient reports no desire to harm self or others. Onset of symptoms was February 12, 2024. 22:53 Method Of Arrival: Ambulatory bm8 22:53 Acuity: LUIZ 3 bm8 Triage Assessment: 22:55 General: Appears in no apparent distress. uncomfortable, Behavior is calm, cooperative, bm8 appropriate for age. Pain: Complains of pain in right upper quadrant Pain radiates to suprapubic area and right lower quadrant Pain currently is 8 out of 10 on a pain scale. Quality of pain is described as radiating, sharp. EENT: No deficits noted. No signs and/or symptoms were reported regarding the EENT system. Neuro: No deficits noted. Level of Consciousness is awake, alert, obeys commands, Oriented to person, place, time, situation, Appropriate for age. Cardiovascular: Denies chest pain, shortness of breath, Capillary refill < 3 seconds Patient's skin is warm and dry. Respiratory: No deficits noted. Airway is patent Respiratory effort is even, unlabored, Respiratory pattern is regular, symmetrical. GI: Abdomen is round non-distended, Bowel sounds present X 4 quads. Abd is soft X 4 quads Abdomen is tender to palpation in right upper quadrant and right lower quadrant Reports lower abdominal pain, upper abdominal pain. : No deficits noted. No signs and/or symptoms were reported regarding the genitourinary system. 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 - Infectious Disease History:: Denies. - Social history:: Smoking status: Patient denies any tobacco usage or history of. Screenin:12 [facility] ED Fall Risk Assessment (Adult) History of falling in the last 3 months, tm6 including since admission No falls in past 3 months (0 pts) Confusion or Disorientation No (0 pts) Intoxicated or Sedated No (0 pts) Impaired Gait No (0 pts) Mobility Assist Device Used No (0 pt) Altered Elimination No (0 pt) Score/Fall Risk Level 0 - 2 = Low Risk Oriented to surroundings, Maintained a safe environment. Abuse screen: Denies threats or abuse. Denies injuries from another. Nutritional screening: No deficits noted. Tuberculosis screening: No symptoms or risk factors identified. Assessment: 23:00 General: Appears comfortable, Behavior is calm, cooperative. ha1 23:00 Pain: Complains of pain in right upper quadrant Pain does not radiate. Pain currently ha1 is 10 out of 10 on a pain scale. Quality of pain is described as burning, aching, pressure, throbbing. Neuro: Level of Consciousness is awake, alert, obeys commands, Oriented to person, place, time, situation. Cardiovascular: Capillary refill < 3 seconds Patient's skin is warm and dry. Respiratory: Airway is patent Respiratory effort is even, unlabored, Respiratory pattern is regular, symmetrical. GI: Abdomen is round non-distended, Bowel sounds present X 4 quads. Reports upper abdominal pain, nausea. : No signs and/or symptoms were reported regarding the genitourinary system. Derm: Skin is pink, warm \T\ dry. Musculoskeletal: Circulation, motion, and sensation intact. Range of motion: intact in all extremities. 02/14 00:03 Reassessment: Patient and/or family updated on plan of care and expected duration. Pain tm6 level reassessed. Patient is alert, oriented x 3, equal unlabored respirations, skin warm/dry/pink. 00:39 Reassessment: Patient and/or family updated on plan of care and expected duration. Pain tm6 level reassessed. Patient is alert, oriented x 3, equal unlabored respirations, skin warm/dry/pink. Vital Signs: 02/13 22:53 BP 121 / 78; Pulse 104; Resp 18; Temp 98.4; Pulse Ox 99% ; Weight 86.18 kg; Height 4 bm8 ft. 11 in. ; Pain 10/10; 23:38 BP 103 / 53; Pulse 98; ec2 02/14 00:01 BP 135 / 82; Pulse 95; Pulse Ox 100% on R/A; MAP 94 mmHg; Pain 6/10; tm6 00:39 BP 117 / 67; Pulse 94; Resp 19; Temp 97.3(TE); Pulse Ox 100% on R/A; Pain 2/10; tm6 02/13 22:53 Body Mass Index 38.37 (86.18 kg, 149.86 cm) bm8 02/13 22:53 Pain Scale: Adult bm8 02/14 00:01 Pain Scale: Adult tm6 00:39 Pain Scale: Adult tm6 ED Course: 02/13 22:50 Patient arrived in ED. jj6 22:51 Wade Herrera MD is Attending Physician. ec2 22:55 Triage completed. bm8 22:55 Arm band placed on left wrist. Patient placed in an exam room, on a stretcher, on bm8 phototypesetting equipment monitor, on pulse oximetry. 23:00 Radha Burr, JAZ is Primary Nurse. tm6 23:01 Radiology exam delayed due to test not completed at this time. eh4 23:10 CBC with Diff Sent. tm6 23:10 CMP Sent. tm6 23:10 Lipase Sent. tm6 23:10 Test, Urine Sent. tm6 23:10 Urinalysis w/ reflexes Sent. tm6 23:11 Patient has correct armband on for positive identification. Placed in gown. Bed in low tm6 position. Call light in reach. Side rails up X 1. Provided Education on: plan of care. Client placed on continuous cardiac and pulse oximetry monitoring. NIBP monitoring applied. Pulse ox on. NIBP on. Door closed. Noise minimized. 23:11 Inserted saline lock: 18 gauge in right antecubital area, using aseptic technique. tm6 23:52 CT Abd/Pelvis - Without Contrast In Process Unspecified. EDMS 02/14 00:25 Salazar Zavala MD is Referral Physician. ec2 00:39 No provider procedures requiring assistance completed. IV discontinued, intact, tm6 bleeding controlled, No redness/swelling at site. Pressure dressing applied. Administered Medications: 02/13 23:08 Drug: NS 0.9% IV 1000 ml IV at 1 bolus Per protocol; 1000 mL bolus Route: IV; Rate: 1 ha1 bolus; Site: right antecubital; 02/14 00:40 Follow up: IV Status: Completed infusion; IV Intake: 1000ml tm6 02/13 23:08 Drug: Droperidol IVP 2.5 mg IVP once Route: IVP; Site: right antecubital; ha1 23:10 Drug: TORadol - Ketorolac IVP 15 mg IVP once Route: IVP; Site: right antecubital; ha1 02/14 00:13 Drug: Ketorolac IVP 15 mg IVP once Route: IVP; Site: right antecubital; tm6 Medication: 02/13 23:12 VIS not applicable for this client. tm6 Intake: 02/14 00:40 IV: 1000ml; Total: 1000ml. tm6 Outcome: 00:25 Discharge ordered by . ec2 00:39 Discharged to home ambulatory, with family, tm6 00:39 Condition: stable 00:39 Discharge instructions given to patient, family, Instructed on discharge instructions, follow up and referral plans. Demonstrated understanding of instructions, follow-up care, 00:40 Patient left the ED. tm6 Signatures: Dispatcher [employer] EDOR [place] Conti jj6 Kaley Jennings RN RN 1 Cori Guzmán [facility] Wade Herrera MD MD 2 Radha Burr RN RN tm6 Elias Balbuena RN RN bm8 Corrections: (The following items were deleted from the chart) 02/13 23:26 23:00 General: Appears comfortable, Behavior is calm, cooperative, ha1 ha1
--- NOTE | 2024-02-15 00:25 | EDPHYS ---
Physician Documentation [facility] Name: Adelaide Larson Age: 24 yrs Sex: Female : 2000 Arrival Date: 02/14/2024 Time: 22:45 Bed 8 Private MD: ED Physician Wade Herrera HPI: 02/13 23:00 This 24 yrs old Female presents to ER via Ambulatory with complaints of ec2 Abdominal Pain, Nausea. 23:00 Patient arrives today for evaluation of right-sided abdominal pain. Patient complained ec2 of pain ongoing for several days. Patient reports was having nausea, decreased p.o. intake, no vomiting. Does report bouts of diarrhea. Patient reports no cough or cold symptoms, no difficulty breathing. Patient reports previous history of appendectomy as well as cholecystectomy. Patient reports no urinary complaints.. 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 - Infectious Disease History:: Denies. - Social history:: Smoking status: Patient denies any tobacco usage or history of. ROS: 23:00 Constitutional: as per hpi ec2 Exam: 23:00 Constitutional: GEN: NAD Head: atraumatic Eyes: EOMI Ears: External ears are ec2 normal. CV: Tachycardia LUNGS: no respiratory distress ABD: non-distended, soft, tender in the right abdomen, no guarding, not rigid. SKIN: no evidence of rashes MSK: no evidence of trauma NEURO: moves all extremities equally Vital Signs: 22:53 BP 121 / 78; Pulse 104; Resp 18; Temp 98.4; Pulse Ox 99% ; Weight 86.18 kg; Height 4 bm8 ft. 11 in. ; Pain 10/10; 23:38 BP 103 / 53; Pulse 98; ec2 02/14 00:01 BP 135 / 82; Pulse 95; Pulse Ox 100% on R/A; MAP 94 mmHg; Pain 6/10; tm6 00:39 BP 117 / 67; Pulse 94; Resp 19; Temp 97.3(TE); Pulse Ox 100% on R/A; Pain 2/10; tm6 02/13 22:53 Body Mass Index 38.37 (86.18 kg, 149.86 cm) 8 02/13 22:53 Pain Scale: Adult bm8 02/14 00:01 Pain Scale: Adult tm6 00:39 Pain Scale: Adult tm6 MDM: 02/13 22:59 Patient medically screened. ec2 23:00 Data reviewed: vital signs. ED course: Patient arrives today for evaluation of ec2 right-sided abdominal pain. Examination remarkable for abdominal findings as above, slight tachycardia noted. Will obtain lab work, urine studies, CT imaging, . 23:38 ED course: Reassuring, metabolic profile reassuring. Negative testing, ec2 negative urine testing. Pending CT imaging. On reassessment patient with improving tachycardia. . 02/13 22:59 Order name: CBC with Diff; Complete Time: 23:37 ec2 02/13 22:59 Order name: CMP; Complete Time: 23:37 ec2 02/13 22:59 Order name: Lipase; Complete Time: 23:37 ec2 02/13 22:59 Order name: Test, Urine; Complete Time: 23:37 ec2 02/13 22:59 Order name: Urinalysis w/ reflexes; Complete Time: 23:37 ec2 02/13 22:59 Order name: CT Abd/Pelvis - Without Contrast ec2 02/13 22:59 Order name: IV Saline Lock; Complete Time: 23:10 ec2 02/13 22:59 Order name: Labs collected and sent; Complete Time: 23:10 ec2 Administered Medications: 23:08 Drug: NS 0.9% IV 1000 ml IV at 1 bolus Per protocol; 1000 mL bolus Route: IV; Rate: 1 ha1 bolus; Site: right antecubital; 02/14 00:40 Follow up: IV Status: Completed infusion; IV Intake: 1000ml [facility] 02/13 23:08 Drug: Droperidol IVP 2.5 mg IVP once Route: IVP; Site: right antecubital; ha1 23:10 Drug: TORadol - Ketorolac IVP 15 mg IVP once Route: IVP; Site: right antecubital; ha1 02/14 00:13 Drug: Ketorolac IVP 15 mg IVP once Route: IVP; Site: right antecubital; tm6 Disposition Summary: 02/15/24 00:25 Discharge Ordered Notes: Location: Home ec2 Problem: chronic ec2 Symptoms: have improved ec2 Condition: Stable ec2 Diagnosis - Abdominal pain, Generalized ec2 Followup: ec2 - With: Salazar Zavala MD - When: - Reason: Recheck today's complaints Discharge Instructions: - Discharge Summary Sheet ec2 - Abdominal Pain, Adult ec2 Forms: - Medication Reconciliation Form ec2 - Thank You Letter ec2 - Antibiotic Education ec2 - Prescription Opioid Use ec2 - Patient Portal Instructions ec2 - Leadership Thank You Letter ec2 Signatures: Dispatcher [employer] Kaley Yeh RN RN 1 Wade Herrera MD MD 2 Radha Burr RN RN 6 Elias Balbuena RN RN bm8 Corrections: (The following items were deleted from the chart) 02/13 23:00 23:00 CBC+H.LAB.BRZ ordered. EDMS EDMS 23:00 23:00 COMPREHENSIVE METABOLIC PANEL+C.LAB.BRZ ordered. EDMS EDMS 23:00 23:00 LIPASE+C.LAB.BRZ ordered. EDMS EDMS 23:00 23:00 Test, Urine+UC.LAB.BRZ ordered. EDMS EDMS 23:00 23:00 Urinalysis+U.LAB.BRZ ordered. EDMS EDMS 23:00 23:00 Abdomen Pelvis Wo Con+CT.RAD.BRZ ordered. EDMS EDMS
[2024-02-15 01:12] VITALS: BP 117/67; TEMP 97.3; O2SAT 100
--- NOTE | 2024-02-15 21:16 | RAD REPORT ---
EXAM DESCRIPTION: CT - Abdomen Pelvis Wo Contrast - 02/15/2024 6:37 am CLINICAL HISTORY: The patient is 24 years old and is Female; right side abd to pelvic pain TECHNIQUE: Axial computed tomography images of the abdomen and pelvis without intravenous contrast. Sagittal and coronal reformatted images were created and reviewed. This CT exam was performed usi ng one or more of the following dose reduction techniques: automated exposure control, adjustment o f the mA and/or kV according to patient size, and/or use of iterative reconstruction technique. DLP: 1238 mGy*cm COMPARISON: CT abdomen and pelvis dated 12/31/2023. FINDINGS: LUNG BASES: Unremarkable. No mass. No consolidation. ABDOMEN: LIVER: Hepatic steatosis. GALLBLADDER AND BILE DUCTS: Prior cholecystectomy. No ductal dilation. PANCREAS: Unremarkable. No ductal dilation. SPLEEN: Unremarkable. No splenomegaly. ADRENALS: Unremarkable. No mass. KIDNEYS AND URETERS: Multiple nonobstructive left renal stones. STOMACH AND BOWEL: Unremarkable. No obstruction. No mucosal thickening. PELVIS: APPENDIX: Prior appendectomy. BLADDER: Unremarkable. No stones. REPRODUCTIVE: Unremarkable as visualized. ABDOMEN and PELVIS: INTRAPERITONEAL SPACE: Unremarkable. No free air. No significant fluid collection. BONES/JOINTS: Mild lumbar levoscoliosis. No acute fracture. No dislocation. SOFT TISSUES: Unremarkable. VASCULATURE: Unremarkable. No abdominal aortic aneurysm. LYMPH NODES: Unremarkable. No enlarged lymph nodes. IMPRESSION: 1. No acute abdominal or pelvic abnormality. 2. Multiple nonobstructive left renal stones. 3. Hepatic steatosis. 4. Mild lumbar levoscoliosis. Electronically signed by: Eric Murphy DO 02/15/2024 12:19 AM CDT Due to temporary technical issues with the PACS/Fluency reporting system, reports are being signed by the in house radiologists without review as a courtesy to insure prompt reporting. The interpreting radiologist is fully responsible for the content of the report.
== END 2024-02-15 00:40 | disposition home or self-care (01) ==
LOC: ER 22:45
DX: R10.84 Generalized abdominal pain (principal); Z88.1 Allergy status to other antibiotic agents; Z88.8 Allergy status to other drugs, medicaments and biological substances
CPT/HCPCS: 96361; 85025; 81001; 36415; 81025; 83690; 80053; 74176; 96375; 96374; 99284; J7030

== ENCOUNTER 2024-03-30 20:18 | Emergency (ER) | payer BC ==
[2024-03-30 22:24] LABS: Specific Gravity 1.021 (1.005-1.030)
[2024-03-30 22:28] LABS: Sqamous Epithelial <5 /HPF (None Seen); Urine Bacteria <20 /HPF (<20); Urine Bilirubin NEGATIVE (Negative); Urine Blood Negative (Negative); Urine Clarity Extremely Turbid (Clear); Urine Color Light-Yellow (Yellow); Urine Culture Reflex Order NOT NEEDED; Urine Glucose NEGATIVE (Negative); Urine Ketones NEGATIVE (Negative); Urine Microscopic Reflex YN ORDER UMIC; Urine Mucus Slight /HPF (None Seen); Urine Nitrite NEGATIVE (Negative); Urine Protein TRACE (Negative); Urine RBC <5 /HPF (None Seen); Urine Urobilinogen Normal (Normal); Urine WBC <5 /HPF (<5)
--- NOTE | 2024-03-30 22:46 | RAD REPORT ---
EXAM DESCRIPTION: US - Transvaginal Study Probe - 03/30/2024 10:19 pm CLINICAL HISTORY: pelvic pain COMPARISON: Transvaginal Study Probe dated 03/14/2022 TECHNIQUE: Sonographic grayscale and color flow images of the pelvis were obtained. FINDINGS: The uterus is normal in size, shape and echotexture. The uterus measures 7.2 cm in length. The endometrial stripe measures 10mm, normal, please correlate with menstrual phase. Both ovaries are normal in size, shape and echotexture. The right ovary measures 2.8 x 1.6 x 2.0 cm. The left ovary measures 3.4 x 2.7 x 3.2 cm. Well-circumscribed left ovarian 2.1 x 2.1 x 2.2 cm cyst with heterogeneous debris and thin septations. No adnexal masses. Normal Doppler blood flow was demonstrated to both ovaries. No significant pelvic ascites. IMPRESSION: Left ovarian 2.2 cm hemorrhagic cyst. No other abnormality on pelvic ultrasound.
[2024-03-30] MEDS ORDERED: ONDANSETRON 4 MG/2 ML VIAL ONE (23:45)
[2024-03-30] MEDS ORDERED: NA CHLORIDE 0.9% 1,000 ML ONE (23:46)
[2024-03-30] MEDS ORDERED: KETOROLAC 30 MG/ML INJ ONE (23:46)
[2024-03-31 00:09] LABS: Absolute Basophils 0.1 K/uL (0-0.5); Absolute Eosinophils 0.2 K/uL (0-0.5); Absolute Lymphocytes (CBC) 1.5 K/uL (0.7-4.9); Absolute Monocytes 0.5 K/uL (0.1-1.3); Absolute Neutrophil 4.1 K/uL (1.8-8.0); Basophils % 1.2 % (0-1.3); Eosinophils % 3.5 % (0-4.4); Hematocrit 37.4 % (36.0-45.0); Hemoglobin 12.4 g/dL (12.0-15.0); Lymphocytes % 23.6 % (15.3-44.8); MCH 28.9 pg (27.0-35.0); MCHC 33.3 g/dL (32.0-36.0); MPV 9.2 fL (7.6-11.3); Monocytes % 7.5 % (3.3-12.3); Neutrophils % 64.2 % (41.7-73.7); Nucleated Red Blood Cells % 0.1 % (0-0); Platelets 231 thou/uL (152-406); Red Cell Distribution Width 14.9 % (12.1-15.2)
[2024-03-31 00:18] LABS: Albumin 3.7 g/dL (3.4-5.0); Albumin/Globulin Ratio 1.1 (1.1-1.8); Anion Gap 7.8 mEq/L (5.0-15.0); Bilirubin Total 0.3 mg/dL (0.2-1.0); Globulin 3.3 g/dL (2.3-3.5); Potassium 3.8 mEq/L (3.5-5.1)
--- NOTE | 2024-03-31 00:21 | EDPHYS ---
Physician Documentation [facility] Name: Adelaide Larson Age: 24 yrs Sex: Female : 2000 Arrival Date: 03/30/2024 Time: 20:18 Bed 6 Private MD: ED Physician Davidson Vallejo HPI: 03/31 00:35 This 24 yrs old Female presents to ER via Ambulatory with complaints of Abdominal Pain. rt 00:35 Patient presents to the ED with a left sided pelvic pain, sharp in nature starting rt today. Patient is about 2 weeks from last period. Patient denies nausea, vomiting, vaginal bleeding. Denies other acute complaints, symptoms are moderate severity, no other aggravating or alleviating factors.. 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 - Infectious Disease History:: Denies. - Social history:: Smoking status: Patient denies any tobacco usage or history of. - Family history:: not pertinent. ROS: 03/31 00:35 Constitutional: Negative for fever, chills, and weight loss, Cardiovascular: Negative rt for chest pain, palpitations, and edema, Respiratory: Negative for shortness of breath, cough, wheezing, and pleuritic chest pain, MS/Extremity: Negative for injury and deformity, Skin: Negative for injury, rash, and discoloration, Neuro: Negative for headache, weakness, numbness, tingling, and seizure, Abdomen/GI: Positive for abdominal pain, nausea, Exam: 00:35 Constitutional: This is a well developed, well nourished patient who is awake, alert, rt and in no acute distress. Head/Face: Normocephalic, atraumatic. Chest/axilla: Normal chest wall appearance and motion. Nontender with no deformity. No lesions are appreciated. Cardiovascular: Regular rate and rhythm with a normal S1 and S2. No gallops, murmurs, or rubs. Normal PMI, no JVD. No pulse deficits. Respiratory: Lungs have equal breath sounds bilaterally, clear to auscultation and percussion. No rales, rhonchi or wheezes noted. No increased work of breathing, no retractions or nasal flaring. Skin: Warm, dry with normal turgor. Normal color with no rashes, no lesions, and no evidence of cellulitis. MS/ Extremity: Pulses equal, no cyanosis. Neurovascular intact. Full, normal range of motion. Neuro: Awake and alert, GCS 15, oriented to person, place, time, and situation. Cranial nerves II-XII grossly intact. Motor strength 5/5 in all extremities. Sensory grossly intact. Cerebellar exam normal. Normal gait. 00:35 Abdomen/GI: Tenderness to the left lower quadrant without rebound, guarding, distention, no other focal areas of tenderness, Vital Signs: 03/30 21:02 BP 128 / 80; Pulse 103; Resp 18 S; Temp 98.7(O); Pulse Ox 100% on R/A; Weight 86.18 kg as6 (R); Height 4 ft. 11 in. (R); Pain 9/10; 23:56 BP 129 / 81; Pulse 93; Resp 18; Pulse Ox 95% ; vc1 21:02 Body Mass Index 38.37 (86.18 kg, 149.86 cm) as6 21:02 Pain Scale: Adult as6 MDM: 21:04 Patient medically screened. rt 03/31 00:35 Differential Diagnosis Ovarian cyst, torsion, kidney stone, UTI. Data reviewed: vital rt signs, nurses notes, lab test result(s), radiologic studies. I considered the following discharge prescriptions or medication management in the emergency department Medications were administered in the Emergency Department. See MAR. Test considered but Not performed: CT: Patient with many CT scans previously. Patient without hematuria, signs of urinary infection. Given significant radiation exposure, I believe that the risks of radiation is greater than the risk of the surgical pathology.. Counseling: I had a detailed discussion with the patient and/or guardian regarding the historical points, exam findings, and any diagnostic results supporting the discharge/admit diagnosis, lab results, radiology results, the need for outpatient follow up, to return to the emergency department if symptoms worsen or persist or if there are any questions or concerns that arise at home. Response to treatment: the patient's symptoms have mildly improved after treatment. 03/30 22:00 Order name: CBC with Diff; Complete Time: 00:18 rt 03/30 22:00 Order name: CMP; Complete Time: 00:18 rt 03/30 22:00 Order name: Lipase; Complete Time: 00:18 rt 03/30 22:00 Order name: Test, Urine; Complete Time: 22:47 rt 03/30 22:00 Order name: Urinalysis w/ reflexes; Complete Time: 22:47 rt 03/30 22:09 Order name: Transvaginal Study Probe; Complete Time: 22:47 EDMS 03/30 22:00 Order name: IV Saline Lock; Complete Time: 23:47 rt 03/30 22:00 Order name: Labs collected and sent; Complete Time: 23:47 rt Administered Medications: 03/30 23:53 Drug: NS 0.9% IV 1000 ml IV at 1 bolus Per protocol; 1000 mL bolus Route: IV; Rate: 1 km8 bolus; Site: left antecubital; 23:53 Drug: Ondansetron IVP 4 mg IVP once; over 2 minutes Route: IVP; Site: left antecubital; km8 03/31 00:20 Drug: TORadol - Ketorolac IVP 15 mg IVP once Route: IVP; Site: left antecubital; km8 Disposition Summary: 03/31/24 00:21 Discharge Ordered Notes: Location: Home rt Problem: new rt Symptoms: have improved rt Condition: Stable rt Diagnosis - Other ovarian cysts rt Followup: rt - With: Private Physician - When: 2 - 3 days - Reason: Discharge Instructions: - Discharge Summary Sheet rt - Ovarian Cyst rt Forms: - Medication Reconciliation Form rt - Antibiotic Education rt - Prescription Opioid Use rt - Patient Portal Instructions rt - Leadership Thank You Letter rt Prescriptions: - ondansetron 4 mg Oral Tablet,disintegrating - take 1 tablet ORAL route every 6 hours As needed as needed for nausea and rt vomiting; 15 tablet; Refills: 0, Product Selection Permitted - Tramadol 50 mg Oral Tablet - take 1 tablet ORAL route every 8 hours as needed; 12 tablet; Refills: 0, rt Product Selection Permitted Signatures: Dispatcher [employer] Spencer Beaver RN RN as6 Davidson Vallejo MD MD rt Aleja Caldwell RN RN km8 Corrections: (The following items were deleted from the chart) 03/30 22: 22:01 CBC+H.LAB.BRZ ordered. EDMS EDMS 22: 22:01 COMPREHENSIVE METABOLIC PANEL+C.LAB.BRZ ordered. EDMS EDMS 22: 22:01 LIPASE+C.LAB.BRZ ordered. EDMS EDMS 22: 22:02 Test, Urine+UC.LAB.BRZ ordered. EDMS EDMS 22: 22:02 Urinalysis+U.LAB.BRZ ordered. EDMS EDMS 22:09 22:02 Pelvis Complete+US.RAD.BRZ ordered. EDMS EDMS
--- NOTE | 2024-03-31 00:21 | ER ---
Nurse's Notes [facility] Name: Adelaide Larson Age: 24 yrs Sex: Female : 2000 Arrival Date: 03/30/2024 Time: 20:18 Bed 6 Private MD: Diagnosis: Other ovarian cysts Presentation: 03/30 21:02 Chief complaint: Patient states: LLQ pain, n/v. Coronavirus screen: At this time, the as6 client does not indicate any symptoms associated with coronavirus-19. Ebola Screen: No symptoms or risks identified at this time. Initial Sepsis Screen: Does the patient meet any 2 criteria? No. Patient's initial sepsis screen is negative. Does the patient have a suspected source of infection? No. Patient's initial sepsis screen is negative. Risk Assessment: Do you want to hurt yourself or someone else? Patient reports no desire to harm self or others. Onset of symptoms was March 29, 2024. 21:02 Acuity: LUIZ 3 as6 21:02 Method Of Arrival: Ambulatory as6 Triage Assessment: 21:03 General: Appears uncomfortable, Behavior is cooperative, restless. Pain: Complains of as6 pain in abdomen. GI: Reports lower abdominal pain, nausea, vomiting. 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 - Infectious Disease History:: Denies. - Social history:: Smoking status: Patient denies any tobacco usage or history of. - Family history:: not pertinent. Screenin/04 00:38 [facility] ED Fall Risk Assessment (Adult) History of falling in the last 3 months, vc1 including since admission No falls in past 3 months (0 pts) Confusion or Disorientation No (0 pts) Intoxicated or Sedated No (0 pts) Impaired Gait No (0 pts) Mobility Assist Device Used No (0 pt) Altered Elimination No (0 pt) Score/Fall Risk Level 0 - 2 = Low Risk Oriented to surroundings, Maintained a safe environment, Educated pt \T\ family on fall prevention, incl call for assistance when getting out of bed. Abuse screen: Denies threats or abuse. Nutritional screening: No deficits noted. Tuberculosis screening: No symptoms or risk factors identified. Assessment: 03/30 23:56 Reassessment: No changes from previously documented assessment. Patient and/or family vc1 updated on plan of care and expected duration. Pain level reassessed. 03/31 00:39 General: Appears in no apparent distress. comfortable, obese, well groomed, well vc1 developed, well nourished, Behavior is calm, cooperative, appropriate for age. Pain: Complains of pain in abdomen. Neuro: Level of Consciousness is awake, alert, obeys commands, Oriented to person, place, time, situation, Appropriate for age. Cardiovascular: Capillary refill < 3 seconds Patient's skin is warm and dry. Cardiovascular: Heart tones S1 S2. Respiratory: Airway is patent Respiratory effort is even, unlabored, Respiratory pattern is regular, symmetrical, Breath sounds are clear. GI: Bowel sounds present X 4 quads. Abd is soft Abdomen is tender to palpation in right lower quadrant and left lower quadrant Reports lower abdominal pain, nausea, vomiting. : No deficits noted. No signs and/or symptoms were reported regarding the genitourinary system. EENT: No deficits noted. No signs and/or symptoms were reported regarding the EENT system. Derm: Skin is intact, is healthy with good turgor, Skin is dry, Skin is normal, Skin temperature is warm. Vital Signs: 03/30 21:02 BP 128 / 80; Pulse 103; Resp 18 S; Temp 98.7(O); Pulse Ox 100% on R/A; Weight 86.18 kg as6 (R); Height 4 ft. 11 in. (R); Pain 9/10; 23:56 BP 129 / 81; Pulse 93; Resp 18; Pulse Ox 95% ; vc1 21:02 Body Mass Index 38.37 (86.18 kg, 149.86 cm) as6 21:02 Pain Scale: Adult as6 ED Course: 20:21 Patient arrived in ED. gm2 21:00 Davidson Vallejo MD is Attending Physician. rt 21:03 Triage completed. as6 21:03 Arm band placed on right wrist. as6 22:16 Urinalysis w/ reflexes Sent. vk 22:16 Test, Urine Sent. vk 22:16 Urine collected: clean catch specimen, clear. vk 22:20 Transvaginal Study Probe In Process Unspecified. EDMS 22:51 Missed attempt(s): 22 gauge in left wrist. vk 23:47 Inserted saline lock: 22 gauge in left antecubital area, using aseptic technique. Blood ss collected. 23:52 Aleja Caldwell, RN is Primary Nurse. [facility] 03/31 00:38 No provider procedures requiring assistance completed. IV discontinued, intact, vc1 bleeding controlled, No redness/swelling at site. Pressure dressing applied. 00:40 Provided Education on: f/u with OB. vc1 Administered Medications: 03/30 23:53 Drug: NS 0.9% IV 1000 ml IV at 1 bolus Per protocol; 1000 mL bolus Route: IV; Rate: 1 km8 bolus; Site: left antecubital; 23:53 Drug: Ondansetron IVP 4 mg IVP once; over 2 minutes Route: IVP; Site: left antecubital; km8 03/31 00:20 Drug: TORadol - Ketorolac IVP 15 mg IVP once Route: IVP; Site: left antecubital; 8 Medication: 00:40 VIS not applicable for this client. vc1 Outcome: 00:21 Discharge ordered by . rt 00:38 Discharged to home ambulatory, vc1 00:38 Condition: good 00:38 Discharge instructions given to patient, Instructed on discharge instructions, follow up and referral plans. medication usage, Demonstrated understanding of instructions, follow-up care, medications, Prescriptions given X 2, 00:40 Patient left the ED. vc1 Signatures: Dispatcher [employer] EDMS Rebecca Pleitez RN RN ss Spencer Duke RN RN as6 Ally Coulter RN RN vc1 Davidson Vallejo MD MD rt Nasima Sotomayor 2 Aleja Caldwell, JAZ RN 8 Nesha Jeffries
[2024-03-31 01:28] VITALS: BP 129/81; TEMP 98.7; O2SAT 95
== END 2024-03-31 00:40 | disposition home or self-care (01) ==
LOC: ER 20:18
DX: N83.299 Other ovarian cyst, unspecified side (principal)
CPT/HCPCS: 85025; 81001; 36415; 81025; 83690; 80053; 76830; 96375; 96374; 99284; J2405; J7030

== ENCOUNTER 2024-04-07 03:17 | Emergency (ER) | payer BC ==
[2024-04-07] MEDS ORDERED: KETOROLAC 30 MG/ML INJ ONE (03:46)
[2024-04-07] MEDS ORDERED: MORPHINE 4 MG/ML SYR ONE (03:46)
[2024-04-07] MEDS ORDERED: HALOPERIDOL LACT 5 MG/ML INJ ONE (03:46)
[2024-04-07] MEDS ORDERED: ONDANSETRON 4 MG/2 ML VIAL ONE (03:46)
[2024-04-07] MEDS ORDERED: FAMOTIDINE 20 MG/2 ML VIAL IV ONE (03:47)
[2024-04-07] MEDS ORDERED: NA CHLORIDE 0.9% 1,000 ML ONE (03:47)
[2024-04-07 04:51] LABS: Absolute Basophils 0.1 K/uL (0-0.5); Absolute Eosinophils 0.2 K/uL (0-0.5); Absolute Lymphocytes (CBC) 1.5 K/uL (0.7-4.9); Absolute Monocytes 0.4 K/uL (0.1-1.3); Absolute Neutrophil 4.4 K/uL (1.8-8.0); Basophils % 0.8 % (0-1.3); Eosinophils % 3.3 % (0-4.4); Hematocrit 37.5 % (36.0-45.0); Hemoglobin 12.6 g/dL (12.0-15.0); Lymphocytes % 22.2 % (15.3-44.8); MCHC 33.5 g/dL (32.0-36.0); MCV 86.6 fL (80-100); MPV 9.5 fL (7.6-11.3); Monocytes % 6.7 % (3.3-12.3); Nucleated RBC Absolute Count 0.1 (0-0); Nucleated Red Blood Cells % 0.7 % (0-0); Platelets 251 thou/uL (152-406); RBC Red Blood Cell Count 4.33 M/uL (3.86-4.86); Red Cell Distribution Width 14.9 % (12.1-15.2)
[2024-04-07 04:55] LABS: Albumin/Globulin Ratio 1.2 (1.1-1.8); Anion Gap 8.1 mEq/L (5.0-15.0); Bilirubin Total 0.4 mg/dL (0.2-1.0); Globulin 3.4 g/dL (2.3-3.5); Potassium 3.1 mEq/L (3.5-5.1); Protein, Total 7.4 g/dL (6.4-8.2)
[2024-04-07 05:24] LABS: Specific Gravity 1.022 (1.005-1.030); Sqamous Epithelial <5 /HPF (None Seen); Urine Bacteria None Seen /HPF (<20); Urine Bilirubin NEGATIVE (Negative); Urine Blood 3+ (OVER) (Negative); Urine Clarity Extremely Turbid (Clear); Urine Color Yellow (Yellow); Urine Culture Reflex Order NOT NEEDED; Urine Glucose NEGATIVE (Negative); Urine Ketones NEGATIVE (Negative); Urine Microscopic Reflex YN ORDER UMIC; Urine Mucus 1+ /HPF (None Seen); Urine Nitrite NEGATIVE (Negative); Urine Protein TRACE (Negative); Urine RBC >50 /HPF (None Seen); Urine Urobilinogen Normal (Normal); Urine WBC <5 /HPF (<5); Urine pH 5.5 (5.0-7.0)
[2024-04-07 05:25] LABS: Specific Gravity 1.022 (1.005-1.030)
--- NOTE | 2024-04-07 07:18 | EDPHYS ---
Physician Documentation [facility] Name: Adelaide Larson Age: 24 yrs Sex: Female : 2000 Arrival Date: 04/07/2024 Time: 03:17 Bed 8 Private MD: ED Physician Jameel Jaime HPI: 04/07 03:19 This 24 yrs old Female presents to ER via Unassigned with complaints of sp4 Abdominal Pain, LEFT SIDE ABD PAIN. 05:06 24-year-old female with history of ovarian cysts anxiety asthma depression sp4 hyperglycemia hypothyroidism scoliosis presents with moderate to severe left lower abdominal left flank pain. Pain reports acute onset this morning. 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 - Infectious Disease History:: Denies. - Social history:: Smoking status: Patient denies any tobacco usage or history of. Patient/guardian denies using alcohol, street drugs. - Family history:: not pertinent. ROS: 05:06 Constitutional: Negative for fever, chills, and weight loss, positive to left lower sp4 abdominal pain and left flank pain 05:06 All other systems are negative, Exam: 05:06 Constitutional: This is a well developed, well nourished patient who is awake, alert, sp4 and in no acute distress. Positive for emotional upset Head/Face: Normocephalic, atraumatic. Eyes: Pupils equal round and reactive to light, extra-ocular motions intact. Lids and lashes normal. Conjunctiva and sclera are not injected. Cornea within normal limits. Periorbital areas with no swelling, redness, or edema. ENT: Nares patent. No nasal discharge, no septal abnormalities noted. Tympanic membranes are normal and external auditory canals are clear. Oropharynx with no redness, swelling, or masses, exudates, or evidence of obstruction, uvula midline. Mucous membranes moist. Neck: Trachea midline, no thyromegaly or masses palpated, and no cervical lymphadenopathy. Supple, full range of motion without nuchal rigidity, or vertebral point tenderness. Chest/axilla: Normal chest wall appearance and motion. Nontender with no deformity. No lesions are appreciated. Cardiovascular: Regular rate and rhythm with a normal S1 and S2. No gallops, murmurs, or rubs. Normal PMI, no JVD. No pulse deficits. Respiratory: Lungs have equal breath sounds bilaterally, clear to auscultation and percussion. No rales, rhonchi or wheezes noted. No increased work of breathing, no retractions or nasal flaring. Abdomen/GI: Soft, with normal bowel sounds. No distension or tympany. No guarding or rebound. No evidence of tenderness throughout. Back: No spinal tenderness. No costovertebral tenderness. Skin: Warm, dry with normal turgor. Normal color with no rashes, no lesions, and no evidence of cellulitis. MS/ Extremity: Pulses equal, no cyanosis. Neurovascular intact. Full, normal range of motion. Neuro: Awake and alert, GCS 15, oriented to person, place, time, and situation. Cranial nerves II-XII grossly intact. Motor strength 5/5 in all extremities. Sensory grossly intact. Psych: Awake, alert, with orientation to person, place and time. Positive moderate emotional upset, tearful on exam. Vital Signs: 03:32 BP 150 / 93; Pulse 78; Resp 16 S; Temp 97.6(O); Pulse Ox 99% on R/A; Weight 86.18 kg lg3 (R); Height 4 ft. 11 in. (R); Pain 10/10; 05:42 BP 116 / 69; Pulse 81; Resp 16; Pulse Ox 100% ; vc1 06:24 BP 93 / 60; Pulse 81; Resp 17; Pulse Ox 100% on R/A; Pain 6/10; kd4 06:30 BP 96 / 57; kd4 07:00 BP 109 / 66; Pulse 82; Resp 18; Temp 97.8; Pulse Ox 99% ; db 03:32 Body Mass Index 38.37 (86.18 kg, 149.86 cm) lg3 03:32 Pain Scale: Adult lg3 06:24 Pain Scale: Adult kd4 [place] Coma Score: 04:16 Eye Response: spontaneous(4). Motor Response: obeys commands(6). Verbal Response: kd4 oriented(5). Total: 15. 05:06 Eye Response: spontaneous(4). Motor Response: obeys commands(6). Verbal Response: sp4 oriented(5). Total: 15. MDM: 03:20 ED course: Old Sonogram Review - RADIOLOGY SERVICES REPORT Name: ADELAIDE LARSON sp4 Acct Number: [id number] :2000 Age:24 Sex:F Ord Phys: Davidson Vallejo Unit Number: [id number] Prim Care Dr: Corby Burnett MD Status: REG ER ER Exam Date: 03/30/24 EXAM DESCRIPTION: US - Transvaginal Study Probe - 03/30/2024 10:19 pm CLINICAL HISTORY: pelvic pain COMPARISON: Transvaginal Study Probe dated 03/14/2022 TECHNIQUE: Sonographic grayscale and color flow images of the pelvis were obtained. FINDINGS: The uterus is normal in size, shape and echotexture. The uterus measures 7.2 cm in length. The endometrial stripe measures 10mm, normal, please correlate with menstrual phase. Both ovaries are normal in size, shape and echotexture. The right ovary measures 2.8 x 1.6 x 2.0 cm. The left ovary measures 3.4 x 2.7 x 3.2 cm. Well-circumscribed left ovarian 2.1 x 2.1 x 2.2 cm cyst with heterogeneous debris and thin septations. No adnexal masses. Normal Doppler blood flow was demonstrated to both ovaries. No significant pelvic ascites. IMPRESSION: Left ovarian 2.2 cm hemorrhagic cyst. No other abnormality on pelvic ultrasound. Signed By: Jose Dickey Signed AT: 03/30/24 . 04:52 Patient medically screened. sp4 07:09 ED course: CT abdomen and pelvis with contrast TECHNIQUE: Axial images were taken sp4 through the abdomen and pelvis after the administration of IV contrast. All CT scans at this facility use dose modulation, iterative reconstruction, and/or weight based dosing when appropriate to reduce radiation dose to as low as reasonably achievable HISTORY: ABD PAIN COMPARISON:02/14/2024 FINDINGS: Lung bases: The lung bases appear unremarkable. ABDOMEN: The liver appears unremarkable. There is no evidence for mass or intrahepatic biliary ductal dilatation. The gallbladder has been been surgically removed. The adrenal glands are normal. The pancreas is normal without ductal dilatation. The spleen is normal. There is a punctate nonobstructing calculus in the left upper pole. No hydronephrosis. The large and small bowel of the abdomen and pelvis appears unremarkable. Status post appendectomy. Pelvis: The aorta is normal in caliber. There is no evidence for pathologically enlarged adenopathy. The bladder appears unremarkable. There is no free air or free fluidThe uterus and adnexa are unremarkable. Left adnexal follicle. The soft tissues and osseous structures are normal. Impression: 1. No acute findings in the abdomen or pelvis. 2. Punctate non obstructing calculus in the left upper pole. No hydronephrosis. . 07:15 Differential Diagnosis Stone, . Data reviewed: vital signs, nurses notes, radiologic sp4 studies, CT scan. Consideration of Admission/Observation Escalation of care including admission/observation considered. ED course: CT today is normal, patient stable for discharge home. 04/07 03:35 Order name: CBC with Diff; Complete Time: 05:05 sp4 04/07 03:35 Order name: CMP; Complete Time: 05:05 sp4 04/07 03:35 Order name: Lipase; Complete Time: 05:05 sp4 04/07 03:35 Order name: Test, Urine; Complete Time: 07:09 sp4 04/07 03:35 Order name: Urinalysis w/ reflexes; Complete Time: 07:09 sp4 04/07 03:35 Order name: CT Abd/Pelvis - IV Contrast Only sp4 04/07 03:35 Order name: IV Saline Lock; Complete Time: 04:19 sp4 04/07 03:35 Order name: Labs collected and sent; Complete Time: 04:19 sp4 Administered Medications: 03:54 Drug: Ondansetron IVP 4 mg IVP once; over 2 minutes Route: IVP; Site: right antecubital;kd4 07:33 Follow up: Response: No adverse reaction db 03:55 Drug: Famotidine IVP 20 mg IVP once; dilute with 10 mL 0.9% NaCl; give over 2 minutes kd4 Route: IVP; Site: right antecubital; 07:32 Follow up: Response: No adverse reaction db 03:56 Drug: TORadol - Ketorolac IVP 30 mg IVP once Route: IVP; Site: right antecubital; kd4 07:33 Follow up: Response: No adverse reaction db 03:57 Drug: morphine IVP or IV 4 mg IVP once over 4 mins Route: IVP; Infused Over: 4 mins; kd4 Site: right antecubital; 07:33 Follow up: Response: No adverse reaction db 04:03 Not Given (Patient Refused): haloperidol2.5 mg/50 ml 2.5 mg IVP once; Place patient on kd4 a cardiac exercise specialist 04:03 Drug: NS 0.9% IV 1000 ml IV at 1 bolus Per protocol; 1000 mL bolus Route: IV; Rate: 1 kd4 bolus; Site: right antecubital; 07:32 Follow up: Response: No adverse reaction; IV Status: Completed infusion; IV Intake: db 1000ml Disposition Summary: 04/07/24 07:17 Discharge Ordered Notes: Location: Home sp4 Problem: new sp4 Symptoms: have improved sp4 Condition: Stable sp4 Diagnosis - Lower abdominal pain, unspecified sp4 - Pelvic pain in female sp4 Followup: sp4 - With: Anisa Holliday MD - When: 7 - 10 days - Reason: Recheck today's complaints Discharge Instructions: - Discharge Summary Sheet sp4 - Pelvic Pain, Female, [id number] sp4 Forms: - Patient Portal Instructions sp4 Prescriptions: - dicyclomine 20 mg Oral tablet - take 1 tablet ORAL route 4 times per day PRN abdominal crampy pain; 30 tablet; sp4 Refills: 0, Product Selection Permitted Signatures: Dispatcher [employer] Shahrzad Capps RN RN lg3 Jameel Jaime MD MD sp4 Arthur Diaz RN RN kd4 Marcy Gupta RN db
--- NOTE | 2024-04-07 07:18 | ER ---
Nurse's Notes [facility] Name: Adelaide Larson Age: 24 yrs Sex: Female : 2000 Arrival Date: 04/07/2024 Time: 03:17 Bed 8 Private MD: Diagnosis: Lower abdominal pain, unspecified;Pelvic pain in female Presentation: 04/07 03:32 Chief complaint: Patient states: left flank pain X1 hr. Coronavirus screen: Client lg3 denies travel out of the [place] in the last 14 days. At this time, the client does not indicate any symptoms associated with coronavirus-19. Ebola Screen: No symptoms or risks identified at this time. Initial Sepsis Screen: Does the patient meet any 2 criteria? No. Patient's initial sepsis screen is negative. Does the patient have a suspected source of infection? No. Patient's initial sepsis screen is negative. Risk Assessment: Do you want to hurt yourself or someone else? Patient reports no desire to harm self or others. Onset of symptoms was April 07, 2024. 03:32 Method Of Arrival: Ambulatory lg3 03:32 Acuity: LUIZ 3 lg3 Triage Assessment: 03:33 General: Appears in no apparent distress. uncomfortable, Behavior is cooperative, lg3 crying, fussy. Pain: Complains of pain in posterior aspect of left lateral abdomen and anterior aspect of left lateral abdomen. EENT: No deficits noted. No signs and/or symptoms were reported regarding the EENT system. Neuro: No deficits noted. Wolff Agitation-Sedation Scale (RASS): 0 - Alert and Calm Level of Consciousness is awake, alert, obeys commands, Oriented to person, place, time, situation. Cardiovascular: No deficits noted. Denies chest pain, shortness of breath, Capillary refill < 3 seconds Clubbing of nail beds is absent JVD is absent Patient's skin is warm and dry. Respiratory: No deficits noted. Airway is patent Respiratory effort is even, unlabored, Respiratory pattern is regular, symmetrical. GI: Abdomen is round non-distended, Reports nausea, vomiting. : No deficits noted. No signs and/or symptoms were reported regarding the genitourinary system. Derm: No deficits noted. No signs and/or symptoms reported regarding the dermatologic system. Skin is intact, is healthy with good turgor, Skin is dry, Skin is normal, Skin temperature is warm. Musculoskeletal: No deficits noted. Circulation, motion, and sensation intact. Range of motion: intact in all extremities. 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 - Infectious Disease History:: Denies. - Social history:: Smoking status: Patient denies any tobacco usage or history of. Patient/guardian denies using alcohol, street drugs. - Family history:: not pertinent. Screenin:16 [facility] ED Fall Risk Assessment (Adult) History of falling in the last 3 months, kd4 including since admission No falls in past 3 months (0 pts) Confusion or Disorientation No (0 pts) Intoxicated or Sedated No (0 pts) Impaired Gait No (0 pts) Mobility Assist Device Used No (0 pt) Altered Elimination No (0 pt) Score/Fall Risk Level. 04:16 Abuse screen: Denies threats or abuse. kd4 05:43 Nutritional screening: No deficits noted. Tuberculosis screening: No symptoms or risk vc1 factors identified. Assessment: 04:04 General: Appears distressed, uncomfortable, Behavior is crying. Pain: Complains of pain kd4 in abdomen Pain currently is 10 out of 10 on a pain scale. Neuro: Level of Consciousness is awake, alert, obeys commands, Oriented to person, place, time, situation, Appropriate for age Moves all extremities. Gait is steady. Cardiovascular: Denies chest pain, shortness of breath, Patient's skin is warm and dry. Respiratory: Airway is patent. GI: Reports nausea, vomiting. : No signs and/or symptoms were reported regarding the genitourinary system. 05:42 Reassessment: Patient appears in no apparent distress at this time. No changes from vc1 previously documented assessment. Patient and/or family updated on plan of care and expected duration. Pain level reassessed. Patient is alert, oriented x 3, equal unlabored respirations, skin warm/dry/pink. 07:00 Reassessment: Patient appears in no apparent distress at this time. No changes from kc6 previously documented assessment. Patient and/or family updated on plan of care and expected duration. Pain level reassessed. Patient is alert, oriented x 3, equal unlabored respirations, skin warm/dry/pink. 07:30 Reassessment: Patient appears in no apparent distress at this time. Patient states db feeling better. Patient states symptoms have improved. Vital Signs: 03:32 BP 150 / 93; Pulse 78; Resp 16 S; Temp 97.6(O); Pulse Ox 99% on R/A; Weight 86.18 kg lg3 (R); Height 4 ft. 11 in. (R); Pain 10/10; 05:42 BP 116 / 69; Pulse 81; Resp 16; Pulse Ox 100% ; vc1 06:24 BP 93 / 60; Pulse 81; Resp 17; Pulse Ox 100% on R/A; Pain 6/10; kd4 06:30 BP 96 / 57; kd4 07:00 BP 109 / 66; Pulse 82; Resp 18; Temp 97.8; Pulse Ox 99% ; db 03:32 Body Mass Index 38.37 (86.18 kg, 149.86 cm) lg3 03:32 Pain Scale: Adult lg3 06:24 Pain Scale: Adult kd4 [place] Coma Score: 04:16 Eye Response: spontaneous(4). Motor Response: obeys commands(6). Verbal Response: kd4 oriented(5). Total: 15. 05:06 Eye Response: spontaneous(4). Motor Response: obeys commands(6). Verbal Response: sp4 oriented(5). Total: 15. ED Course: 03:18 Patient arrived in ED. jj6 03:18 Jameel Jaime MD is Attending Physician. sp4 03:33 Triage completed. lg3 03:33 Arm band placed on right wrist. lg3 03:59 Ally Coulter, JAZ is Primary Nurse. vc1 04:16 Patient has correct armband on for positive identification. Bed in low position. Call kd4 light in reach. Side rails up X2. 04:16 Initial lab(s) drawn, by me, sent to lab. Inserted saline lock: 20 gauge in right kd4 antecubital area, using aseptic technique. 04:38 CT Abd/Pelvis - IV Contrast Only In Process Unspecified. EDMS 05:07 Warm blanket given. ty 05:07 Warm blanket given. ty 07:00 Report received from JAZ Canales. kc6 07:00 Pulse ox on. NIBP on. kc6 07:00 Provided Education on: DISCHARGE AND FOLLOWUP. db 07:00 No provider procedures requiring assistance completed. IV discontinued, intact, db bleeding controlled, No redness/swelling at site. 07:16 Anisa Holliday MD is Referral Physician. sp4 Administered Medications: 03:54 Drug: Ondansetron IVP 4 mg IVP once; over 2 minutes Route: IVP; Site: right antecubital;kd4 07:33 Follow up: Response: No adverse reaction db 03:55 Drug: Famotidine IVP 20 mg IVP once; dilute with 10 mL 0.9% NaCl; give over 2 minutes kd4 Route: IVP; Site: right antecubital; 07:32 Follow up: Response: No adverse reaction db 03:56 Drug: TORadol - Ketorolac IVP 30 mg IVP once Route: IVP; Site: right antecubital; kd4 07:33 Follow up: Response: No adverse reaction db 03:57 Drug: morphine IVP or IV 4 mg IVP once over 4 mins Route: IVP; Infused Over: 4 mins; kd4 Site: right antecubital; 07:33 Follow up: Response: No adverse reaction db 04:03 Not Given (Patient Refused): haloperidol2.5 mg/50 ml 2.5 mg IVP once; Place patient on kd4 a hospital monitor 04:03 Drug: NS 0.9% IV 1000 ml IV at 1 bolus Per protocol; 1000 mL bolus Route: IV; Rate: 1 kd4 bolus; Site: right antecubital; 07:32 Follow up: Response: No adverse reaction; IV Status: Completed infusion; IV Intake: db 1000ml Medication: 05:43 VIS not applicable for this client. vc1 Intake: 07:32 IV: 1000ml; Total: 1000ml. db Outcome: 07:00 Discharged to home ambulatory, db 07:00 Condition: stable 07:00 Discharge instructions given to patient, Instructed on discharge instructions, follow up and referral plans. Prescriptions given X 1, 07:17 Discharge ordered by MD. barbosa 07:33 Patient left the ED. db Signatures: Dispatcher [employer] EDShahrzad Montano, RN RN lg3 [place] Contij6 Ally Coulter RN RN vc1 Alisson Kaur RN RN kc6 Marcy Gupta RN RN db Jameel Jaime MD MD sp4 Asher Moran Karim RN RN kd4
[2024-04-07 08:03] VITALS: BP 109/66; TEMP 97.8; O2SAT 99
--- NOTE | 2024-04-07 12:16 | RAD REPORT ---
EXAM DESCRIPTION: CT - Abdomen Pelvis W Contrast - 04/07/2024 7:30 am TECHNIQUE: Axial images were taken through the abdomen and pelvis after the administration of IV con trast. All CT scans at this facility use dose modulation, iterative reconstruction, and/or weight bas ed dosing when appropriate to reduce radiation dose to as low as reasonably achievable CLINICAL HISTORY: ABD PAIN COMPARISON: FINDINGS: Lung bases: The lung bases appear unremarkable. ABDOMEN: The liver appears unremarkable. There is no evidence for mass or intrahepatic biliary ductal dilatati on. The gallbladder has been been surgically removed. The adrenal glands are normal. The pancreas is normal without ductal dilatation. The spleen is normal. There is a punctate nonobstructing calculus i n the left upper pole. No hydronephrosis. The large and small bowel of the abdomen and pelvis appears unremarkable. Status post appendectomy. Pelvis: The aorta is normal in caliber. There is no evidence for pathologically enlarged adenopathy. The bladder appears unremarkable. There is no free air or free fluidThe uterus and adnexa are unremar kable. Left adnexal follicle. The soft tissues and osseous structures are normal. IMPRESSION: 1. No acute findings in the abdomen or pelvis. 2. Punctate nonobstructing calculus in the left upper pole. No hydronephrosis. Electronically signed by: Cory Berger MD 04/07/2024 06:52 AM CDT RP Due to temporary technical issues with the PACS/Fluency reporting system, reports are being signed by the in house radiologist without review as a courtesy to ensure prompt reporting. The interpreting r adiologist is fully responsible for the content of the report.
== END 2024-04-07 07:33 | disposition home or self-care (01) ==
LOC: ER 03:17
DX: R10.32 Left lower quadrant pain (principal); R10.2 Pelvic and perineal pain
CPT/HCPCS: 96361; 85025; 81001; 36415; 81025; 83690; 80053; 74177; 96375; 96374; 99284; Q9967; J2405; J7030; J1630

== ENCOUNTER 2024-06-27 15:07 | Emergency (ER) | payer BC ==
[2024-06-27] MEDS ORDERED: MORPHINE 4 MG/ML SYR ONE (15:58)
[2024-06-27] MEDS ORDERED: ONDANSETRON 4 MG/2 ML VIAL ONE (15:58)
[2024-06-27] MEDS ORDERED: FAMOTIDINE 20 MG/2 ML VIAL IV ONE (15:59)
[2024-06-27] MEDS ORDERED: NA CHLORIDE 0.9% 1,000 ML ONE (15:59)
[2024-06-27 16:45] LABS: Absolute Eosinophils 0.2 K/uL (0-0.5); Absolute Lymphocytes (CBC) 0.8 K/uL (0.7-4.9); Absolute Monocytes 0.4 K/uL (0.1-1.3); Absolute Neutrophil 3.5 K/uL (1.8-8.0); Basophils % 0.8 % (0-1.3); Eosinophils % 3.1 % (0-4.4); Hematocrit 37.1 % (36.0-45.0); Hemoglobin 12.2 g/dL (12.0-15.0); Lymphocytes % 15.9 % (15.3-44.8); MCH 28.3 pg (27.0-35.0); MCHC 32.8 g/dL (32.0-36.0); MCV 86.3 fL (80-100); MPV 9.1 fL (7.6-11.3); Monocytes % 7.6 % (3.3-12.3); Neutrophils % 72.6 % (41.7-73.7); Nucleated Red Blood Cells % 0.2 % (0-0); Platelets 219 thou/uL (152-406); Red Cell Distribution Width 15.3 % (12.1-15.2)
[2024-06-27 16:57] LABS: Specific Gravity 1.015 (1.005-1.030)
[2024-06-27 16:58] LABS: Specific Gravity 1.015 (1.005-1.030); Urine Bacteria None Seen /HPF (<20); Urine Bilirubin NEGATIVE (Negative); Urine Blood Negative (Negative); Urine Clarity Extremely Turbid (Clear); Urine Color Light-Yellow (Yellow); Urine Crystals Unidentified Few /HPF (None Seen); Urine Culture Reflex Order REFLEXED; Urine Glucose NEGATIVE (Negative); Urine Ketones NEGATIVE (Negative); Urine Microscopic Reflex YN ORDER UMIC; Urine Mucus Slight /HPF (None Seen); Urine Nitrite NEGATIVE (Negative); Urine Protein NEGATIVE (Negative); Urine RBC <5 /HPF (None Seen); Urine Urobilinogen Normal (Normal); Urine pH 7.5 (5.0-7.0)
[2024-06-27 16:59] LABS: ALT/SGPT 19 U/L (13-56); Albumin 3.6 g/dL (3.4-5.0); Alkaline Phosphatase 57 U/L (45-117); Anion Gap 9.7 mEq/L (5.0-15.0); BUN Blood Urea Nitrogen 8 mg/dL (7-18); Bicarbonate 23 mEq/L (21-32); Bilirubin Total 0.4 mg/dL (0.2-1.0); Globulin 3.6 g/dL (2.3-3.5); Glomerular Filtration Rate 87 ml/min (=/>90); Glucose Level 90 mg/dL (74-106); Lipase 32 U/L (13-75); Potassium 3.7 mEq/L (3.5-5.1); Protein, Total 7.2 g/dL (6.4-8.2); Sodium Level 140 mEq/L (136-145)
[2024-06-27 17:01] LABS: AST/SGOT < 10 U/L (15-37)
--- NOTE | 2024-06-27 17:41 | RAD REPORT ---
EXAM DESCRIPTION: CT - Abdomen Pelvis W Contrast - 06/27/2024 5:31 pm CLINICAL HISTORY: Abdominal pain COMPARISON: March 2024 TECHNIQUE: Computed axial tomography of the abdomen pelvis was obtained. 100 cc Isovue-300 was admin istered intravenously. Oral contrast was not requested which limits evaluation of bowel and appendix All CT scans are performed using dose optimization technique as appropriate and may include automated exposure control or mA/KV adjustment according to patient size. FINDINGS: The liver, spleen, pancreas, adrenal and kidneys appear unremarkable. There is no evidence of diverticulitis. Appendectomy. Small umbilical hernia 2 centimeter right ovarian cyst without significant free fluid. A followup imaging recommended IMPRESSION: 2 centimeter right ovarian cyst without significant free fluid
--- NOTE | 2024-06-27 17:46 | EDPHYS ---
Physician Documentation [facility] Name: Adelaide Larson Age: 24 yrs Sex: Female : 2000 Arrival Date: 06/27/2024 Time: 15:07 Bed 15 Private MD: ED Physician Davidson Vallejo HPI: 06/27 15:45 This 24 yrs old Female presents to ER via Ambulatory with complaints of Abdominal Pain, kb Vomiting. 15:45 Pt is a 24 year old female who presents for abd pain, nausea, vomiting and blood in kb stool for one week. States pain has increased and she is unable to tolerate anything by mouth. Denies fever. . 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 - Infectious Disease History:: Denies. - Social history:: Smoking status: Patient denies any tobacco usage or history of. ROS: 15:44 Constitutional: As per HPI kb Exam: 15:44 Constitutional: This is a well developed, well nourished patient who is awake, alert, kb and in no acute distress. Head/Face: Normocephalic, atraumatic. ENT: Moist Mucous membranes Cardiovascular: Regular rate Respiratory: Respirations even and unlabored. No increased work of breathing. Talking in full sentences Skin: Warm, dry with normal turgor. Normal color. MS/ Extremity: Pulses equal, no cyanosis. Neurovascular intact. Full, normal range of motion. Neuro: Awake and alert, GCS 15, oriented to person, place, time, and situation. Moves all extremities. Normal gait. 15:44 Abdomen/GI: Inspection: abdomen appears normal, Bowel sounds: normal, Palpation: soft, in all quadrants, moderate abdominal tenderness, in the right upper quadrant and left lower quadrant, Vital Signs: 15:36 BP 118 / 69; Pulse 88; Resp 17; Temp 98.4; Pulse Ox 100% ; Weight 86.18 kg; Height 4 ap3 ft. 11 in. ; Pain 8/10; 16:08 BP 113 / 74; Pulse 77; Resp 16; Pulse Ox 96% on R/A; db 17:00 BP 104 / 65; Pulse 71; Resp 16; Pulse Ox 100% on R/A; db 17:57 BP 107 / 53; Pulse 88; Resp 16; Temp 98.1(O); Pulse Ox 100% ; tl4 15:36 Body Mass Index 38.37 (86.18 kg, 149.86 cm) ap3 15:36 Pain Scale: Adult ap3 MDM: 15:13 Patient medically screened. kb 15:45 Differential diagnosis: non-specific abd pain, diverticulitis, uti, gastroenteritis. kb Data reviewed: vital signs, nurses notes. 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 06/27 15:35 Order name: CBC with Diff; Complete Time: 16:49 ap3 06/27 15:35 Order name: CMP; Complete Time: 17:01 ap3 06/27 15:35 Order name: Lipase; Complete Time: 17:01 ap3 06/27 15:35 Order name: Test, Urine; Complete Time: 17:00 ap3 06/27 15:35 Order name: Urinalysis w/ reflexes; Complete Time: 17:03 ap3 06/27 17:06 Order name: Urine Culture EDMS 06/27 15:35 Order name: CT Abd/Pelvis - IV Contrast Only; Complete Time: 17:42 ap3 06/27 15:35 Order name: IV Saline Lock; Complete Time: 16:24 ap3 06/27 15:35 Order name: Labs collected and sent; Complete Time: 16:24 ap3 Administered Medications: 16:11 Drug: NS 0.9% IV 1000 ml IV at 1 bolus Per protocol; 1000 mL bolus Route: IV; Rate: 1 db bolus; Site: right antecubital; 18:01 Follow up: Response: No adverse reaction; IV Status: Completed infusion; IV Intake: tl4 1000ml 16:12 Drug: Ondansetron IVP 4 mg IVP once; over 2 minutes Route: IVP; Site: right antecubital;db 18:02 Follow up: Response: No adverse reaction tl4 16:12 Drug: morphine IVP or IV 4 mg IVP once over 4 mins Route: IVP; Infused Over: 4 mins; db Site: right antecubital; 18:02 Follow up: Response: No adverse reaction; Pain is decreased tl4 16:15 Drug: Famotidine IVP 20 mg IVP once; dilute with 10 mL 0.9% NaCl; give over 2 minutes db Route: IVP; Site: right antecubital; 18:01 Follow up: Response: No adverse reaction tl4 Disposition: 19:32 Co-signature as Attending Physician, Davidson Vallejo MD I reviewed the patient's care rt provided by the Advanced Practice Provider and agree with the diagnosis and treatment plan. Disposition Summary: 06/27/24 17:46 Discharge Ordered Notes: Location: Home kb Condition: Stable kb Diagnosis - Nausea with vomiting, unspecified kb - Other ovarian cysts kb Followup: kb - With: Emergency Department - When: As needed - Reason: Worsening of condition Followup: kb - With: Private Physician - When: 2 - 3 days - Reason: Recheck today's complaints, Continuance of care, Re-evaluation by your physician Discharge Instructions: - Discharge Summary Sheet kb - Viral Gastroenteritis, Adult, [id number] kb - Ovarian Cyst, [id number] kb Forms: - Medication Reconciliation Form kb - Antibiotic Education kb - Prescription Opioid Use kb - Patient Portal Instructions kb - Leadership Thank You Letter kb Prescriptions: - Zofran 4 mg Oral tablet - take 1 tablet ORAL route every 6 hours As needed; 12 tablet; Refills: 0, kb Product Selection Permitted - dicyclomine 20 mg Oral tablet - take 1 tablet ORAL route 4 times per day As needed; 20 tablet; Refills: 0, kb Product Selection Permitted Signatures: Dispatcher [employer] Sahara Gillespie FNP-C FNP-Ckb Aletha Kidd, RN RN ap3 Rafaela Ignacio, RN RN ld1 Marcy Gupta, RN RN db Davidson Vallejo MD MD rt Arpan Anderson RN tl4
--- NOTE | 2024-06-27 17:46 | ER ---
Nurse's Notes [facility] Name: Adelaide Larson Age: 24 yrs Sex: Female : 2000 Arrival Date: 06/27/2024 Time: 15:07 Bed 15 Private MD: Diagnosis: Nausea with vomiting, unspecified;Other ovarian cysts Presentation: 06/27 15:36 Chief complaint: Patient states: she has been having abdominal pain, nausea, vomiting ap3 and bloody stools for approx one week. patient reports her pain is currently an 8/10 on the pain scale at this time. Coronavirus screen: At this time, the client does not indicate any symptoms associated with coronavirus-19. Ebola Screen: No symptoms or risks identified at this time. Initial Sepsis Screen: Does the patient meet any 2 criteria? No. Patient's initial sepsis screen is negative. Does the patient have a suspected source of infection? No. Patient's initial sepsis screen is negative. Risk Assessment: Do you want to hurt yourself or someone else? Patient reports no desire to harm self or others. Onset of symptoms is unknown. 15:36 Method Of Arrival: Ambulatory ap3 15:36 Acuity: LUIZ 3 ap3 Triage Assessment: 15:38 General: Appears uncomfortable, Behavior is calm, cooperative, appropriate for age. ap3 Pain: Complains of pain in abdomen Pain currently is 8 out of 10 on a pain scale. Pain began gradually. Neuro: Level of Consciousness is awake, alert, obeys commands, Oriented to person, place, time, situation, Appropriate for age. Cardiovascular: Patient's skin is warm and dry. Respiratory: Airway is patent Respiratory effort is even, unlabored, Respiratory pattern is regular, symmetrical. GI: Reports lower abdominal pain, upper abdominal pain, diarrhea, bloody stool, nausea, vomiting. 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 - Infectious Disease History:: Denies. - Social history:: Smoking status: Patient denies any tobacco usage or history of. Screenin:38 [facility] ED Fall Risk Assessment (Adult) History of falling in the last 3 months, ap3 including since admission Yes- single mechanical fall (1 pt) Confusion or Disorientation No (0 pts) Intoxicated or Sedated No (0 pts) Impaired Gait No (0 pts) Mobility Assist Device Used No (0 pt) Altered Elimination No (0 pt) Score/Fall Risk Level 0 - 2 = Low Risk Oriented to surroundings, Maintained a safe environment, Educated pt \T\ family on fall prevention, incl call for assistance when getting out of bed, Assessed \T\ reinforced patient's understanding of fall precautions, Hourly rounding (assess needs \T\ fall precautionary measures) done, Used ambulatory aids as needed (educated on \T\ assisted with), Used gait belt as appropriate. Abuse screen: Denies threats or abuse. Nutritional screening: No deficits noted. 15:39 Tuberculosis screening: No symptoms or risk factors identified. ap3 Assessment: 15:47 Reassessment: PT AMBULATORY TO ROOM FROM RESTROOM. db 16:00 Reassessment: Patient appears in no apparent distress at this time. Patient and/or db family updated on plan of care and expected duration. Pain level reassessed. Patient is alert, oriented x 3, equal unlabored respirations, skin warm/dry/pink. General: Appears in no apparent distress. uncomfortable, Behavior is calm, cooperative. Pain: Complains of pain in left lower quadrant and right upper quadrant and abdomen. Neuro: Level of Consciousness is awake, alert, obeys commands, Oriented to person, place, time, situation. Respiratory: Airway is patent Respiratory effort is even, unlabored, Respiratory pattern is regular, symmetrical. GI: Abdomen is Bowel sounds present X 4 quads. Abd is soft Abdomen is tender to palpation in left lower quadrant and right upper quadrant Reports nausea, vomiting. 17:18 Reassessment: Patient appears in no apparent distress at this time. Patient and/or db family updated on plan of care and expected duration. Pain level reassessed. Patient is alert, oriented x 3, equal unlabored respirations, skin warm/dry/pink. Vital Signs: 15:36 BP 118 / 69; Pulse 88; Resp 17; Temp 98.4; Pulse Ox 100% ; Weight 86.18 kg; Height 4 ap3 ft. 11 in. ; Pain 8/10; 16:08 BP 113 / 74; Pulse 77; Resp 16; Pulse Ox 96% on R/A; db 17:00 BP 104 / 65; Pulse 71; Resp 16; Pulse Ox 100% on R/A; db 17:57 BP 107 / 53; Pulse 88; Resp 16; Temp 98.1(O); Pulse Ox 100% ; tl4 15:36 Body Mass Index 38.37 (86.18 kg, 149.86 cm) ap3 15:36 Pain Scale: Adult ap3 ED Course: 15:10 Patient arrived in ED. im 15:12 Sahara Lynn FNP-C is PHCP. kb 15:12 Davidson Vallejo MD is Attending Physician. kb 15:37 Triage completed. ap3 15:39 Arm band placed on right wrist. ap3 15:46 Marcy Gupta, JAZ is Primary Nurse. db 16:11 Initial lab(s) drawn, by me, sent to lab. Inserted saline lock: 22 gauge in right db antecubital area, using aseptic technique. Blood collected. Flushed with 10 mL NS. 16:28 Patient has correct armband on for positive identification. Bed in low position. Call db light in reach. Side rails up X 1. Pulse ox on. NIBP on. 17:[address] via wheelchair. db 17:33 CT Abd/Pelvis - IV Contrast Only In Process Unspecified. EDMS 17:58 No provider procedures requiring assistance completed. IV discontinued, intact, tl4 bleeding controlled, No redness/swelling at site. Pressure dressing applied. 18:08 Provided Education on: ed process. ld1 Administered Medications: 16:11 Drug: NS 0.9% IV 1000 ml IV at 1 bolus Per protocol; 1000 mL bolus Route: IV; Rate: 1 db bolus; Site: right antecubital; 18:01 Follow up: Response: No adverse reaction; IV Status: Completed infusion; IV Intake: tl4 1000ml 16:12 Drug: Ondansetron IVP 4 mg IVP once; over 2 minutes Route: IVP; Site: right antecubital;db 18:02 Follow up: Response: No adverse reaction tl4 16:12 Drug: morphine IVP or IV 4 mg IVP once over 4 mins Route: IVP; Infused Over: 4 mins; db Site: right antecubital; 18:02 Follow up: Response: No adverse reaction; Pain is decreased tl4 16:15 Drug: Famotidine IVP 20 mg IVP once; dilute with 10 mL 0.9% NaCl; give over 2 minutes db Route: IVP; Site: right antecubital; 18:01 Follow up: Response: No adverse reaction tl4 Medication: 18:08 VIS not applicable for this client. ld1 Intake: 18:01 IV: 1000ml; Total: 1000ml. tl4 Outcome: 17:46 Discharge ordered by MD. kb 17:58 Discharged to home ambulatory, tl4 17:58 Condition: stable 17:58 Discharge instructions given to patient, Instructed on discharge instructions, follow up and referral plans. medication usage, Demonstrated understanding of instructions, follow-up care, medications, Prescriptions given X 2, 18:09 Patient left the ED. ld1 Signatures: Dispatcher [employer] EDMS Sahara Lynn, KBC CV/CVN CV TSC SYSTEM OPERATOR-Aletha Banda, RN JAZ ap3 Rafaela Ignacio RN RN ld1 Marcy Gupta, JAZ RN Char Donnelly Toni, RN RN tl4
[2024-06-27 18:36] VITALS: O2SAT 100
[2024-06-27 18:37] VITALS: BP 107/53; TEMP 98.1
== END 2024-06-27 18:09 | disposition home or self-care (01) ==
LOC: ER 15:07
DX: R11.2 Nausea with vomiting, unspecified (principal); N83.299 Other ovarian cyst, unspecified side
CPT/HCPCS: 96361; 87088; 85025; 81001; 87086; 36415; 81025; 83690; 80053; 74177; 96375; 96374; 99285; Q9967; J2405; J7030

== ENCOUNTER 2024-08-12 23:43 | Emergency (ER) | payer BC ==
[2024-08-13] MEDS ORDERED: KETOROLAC 30 MG/ML INJ ONE (00:34)
[2024-08-13] MEDS ORDERED: dexAMETHasone 10 MG/ML VIAL ONE (00:34)
[2024-08-13] MEDS ORDERED: MORPHINE 4 MG/ML SYR ONE (00:34)
[2024-08-13 00:55] LABS: Specific Gravity 1.019 (1.005-1.030); Sqamous Epithelial <5 /HPF (None Seen); Urine Bacteria <20 /HPF (<20); Urine Bilirubin NEGATIVE (Negative); Urine Blood Negative (Negative); Urine Clarity Turbid (Clear); Urine Color Light-Yellow (Yellow); Urine Culture Reflex Order NOT NEEDED; Urine Glucose NEGATIVE (Negative); Urine Ketones NEGATIVE (Negative); Urine Microscopic Reflex YN ORDER UMIC; Urine Mucus 1+ /HPF (None Seen); Urine Nitrite NEGATIVE (Negative); Urine Protein NEGATIVE (Negative); Urine RBC <5 /HPF (None Seen); Urine Urobilinogen Normal (Normal); Urine WBC <5 /HPF (<5); Urine pH 5.5 (5.0-7.0)
--- NOTE | 2024-08-13 02:32 | RAD REPORT ---
EXAM: CT Head/Brain Without Contrast CT Cervical Spine Without Contrast HISTORY: neck and left shoulder pain COMPARISON: CT Head/Brain and Cervical Spine Without Contrast 08/21/2023 TECHNIQUE: Head/brain and cervical spine axial images acquired without contrast. Coronal and sagittal reformats created. Exam performed according to departmental dose-optimization program which includes automated exposure control, adjustment of mA and/or kV according to patient size, and/or use of iterative reconstruction technique. FINDINGS: Head/Brain- No midline shift, mass effect, intracranial hemorrhage, or hydrocephalus. Brain parenchyma unremarkable. Paranasal sinuses clear. Mastoid air cells clear. No skull fracture or significant skull lesion. Cervical Spine- Straightening of cervical vertebral bodies may be due to patient positioning or muscle spasm. No frac ture or subluxation. Cervical disc spaces unremarkable. No significant central canal or neuroforaminal stenosis. No paraspinal hematoma. Moderate diffuse thyroid enlargement. IMPRESSION: 1. Head/Brain- Unremarkable. 2. Cervical Spine- Unremarkable cervical spine. Moderate diffuse thyromegaly. Electronically signed by: Aroldo Birmingham MD 08/13/2024 01:33 AM T Due to temporary technical issues with the PACS/[employer] reporting system, reports are being tila d by the in-house radiologist without review as a courtesy to ensure prompt reporting the interpreting radiologist is fully responsible for the content of the report. Transcribed Date/Time: 08/13/2024 2:32 AM
--- NOTE | 2024-08-13 03:12 | EDPHYS ---
Physician Documentation [facility] Name: Adelaide Larson Age: 24 yrs Sex: Female : 2000 Arrival Date: 08/12/2024 Time: 23:43 Bed DX4 Private MD: Corby Burnett B ED Physician Jameel Jaime HPI: 08/13 00:15 This 24 yrs old Female presents to ER via Unassigned with complaints of Arm Pain, cp Shoulder Pain, Numbness Of Hand. 00:15 The patient or guardian complains of pain, that is acute, weakness, secondary to pain, cp numbness. The complaints affect the left shoulder. Context: denies any injury prior to symptoms and/or previous dislocation and/or fracture. Onset: The symptoms/episode began/occurred today. 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 - Infectious Disease History:: Denies. - Social history:: Smoking status: Patient denies any tobacco usage or history of. Patient/guardian denies using alcohol, street drugs. ROS: 00:20 Constitutional: Negative for body aches, chills, fever, poor PO intake, cp 00:20 Eyes: Negative for injury, pain, redness, and discharge, cp 00:20 Neck: Positive for pain with movement, pain at rest, tenderness, Negative for injury or acute deformity, 00:20 Cardiovascular: Negative for chest pain, edema, palpitations, 00:20 Respiratory: Negative for cough, shortness of breath, wheezing, 00:20 Abdomen/GI: Negative for abdominal pain, vomiting, diarrhea, constipation, 00:20 MS/extremity: Positive for pain, paresthesias, of the left hand and left arm and left shoulder, Negative for injury or acute deformity, 00:20 Neuro: Positive for weakness, of the left arm and left shoulder, Negative for altered mental status, headache, syncope, 00:20 All other systems are negative, Exam: 00:25 Constitutional: The patient appears in no acute distress, alert, awake, cp non-diaphoretic, non-toxic, well developed, well nourished, overweight 00:25 Head/Face: Normocephalic, atraumatic. cp 00:25 Eyes: Periorbital structures: appear normal, Conjunctiva: normal, no exudate, no injection, Sclera: no appreciated abnormality, Lids and lashes: appear normal, bilaterally, 00:25 ENT: External ear(s): are unremarkable, Nose: is normal, Mouth: Lips: moist, Oral mucosa: moist, Posterior pharynx: Airway: no evidence of obstruction, patent, 00:25 Neck: External neck: tenderness, that is moderate, of the left mid cervical area, left trapezius and lower cervical area, ROM/movement: pain, that is moderate, with any movement, limited range of motion, is not appreciated, nuchal rigidity, is not appreciated, 00:25 Chest/axilla: Inspection: normal, Palpation: tenderness, of the left clavicle and anterior aspect of left upper chest, that partially reproduces the patient's complaints, 00:25 Cardiovascular: Rate: normal, Rhythm: regular, 00:25 Respiratory: the patient does not display signs of respiratory distress, Respirations: normal, no use of accessory muscles, no retractions, labored breathing, is not present, Breath sounds: are clear throughout, no decreased breath sounds, no stridor, no wheezing, 00:25 Abdomen/GI: Inspection: abdomen appears normal, Palpation: abdomen is soft and non-tender, in all quadrants, 00:25 Back: pain, that is moderate, of the left trapezius and left scapular area, 00:25 Musculoskeletal/extremity: ROM: limited passive range of motion due to pain, in the left shoulder, Pulses: noted to be 2+ in the left radial artery, Perfusion: the extremity is normally perfused throughout, 00:25 Neuro: Orientation: to person, place \T\ time. Mentation: is normal, Sensation: numbness, that is moderate, of the left hand and left arm, Vital Signs: 00:19 BP 121 / 80; Pulse 92; Resp 17 S; Temp 98.6(O); Pulse Ox 99% on R/A; Weight 86.18 kg lg3 (R); Height 4 ft. 11 in. (R); 03:00 BP 117 / 77; Pulse 85; Resp 18 S; Pulse Ox 100% on R/A; lg3 00:19 Body Mass Index 38.37 (86.18 kg, 149.86 cm) lg3 MDM: 00:23 Medical Screening Exam initiated cp 01:00 Differential diagnosis: dislocation, closed fracture, bulging cervical disc, spinal cp stenosis. 03:05 ED course: EXAM: CT Head/Brain Without Contrast CT Cervical Spine Without Contrast sp4 HISTORY: neck and left shoulder pain COMPARISON: CT Head/Brain and Cervical Spine Without Contrast 08/21/2023 TECHNIQUE: Head/brain and cervical spine axial images acquired without contrast. Coronal and sagittal reformats created. Exam performed according to departmental dose-optimization program which includes automated exposure control, adjustment of mA and/or kV according to patient size, and/or use of iterative reconstruction technique. FINDINGS: Head/BrainNo midline shift, mass effect, intracranial hemorrhage, or hydrocephalus. Brain parenchyma unremarkable. Paranasal sinuses clear. Mastoid air cells clear. No skull fracture or significant skull lesion. Cervical SpineStraightening of cervical vertebral bodies may be due to patient positioning or muscle spasm. No fracture or subluxation. Cervical disc spaces unremarkable. No significant central canal or neuroforaminal stenosis. No paraspinal hematoma. Moderate diffuse thyroid enlargement. IMPRESSION: 1. Head/Brain- Unremarkable. 2. Cervical Spine- Unremarkable cervical spine. Moderate diffuse thyromegaly. Electronically signed by: Madelyn MCCABE 08/13/2024 01:33 AM CDT . 03:09 Data reviewed: vital signs, nurses notes, lab test result(s), radiologic studies, CT sp4 scan, plain films. 08/13 00:19 Order name: Urinalysis w/ reflexes; Complete Time: 01:18 cp 08/13 00:19 Order name: Test, Urine; Complete Time: 01:18 cp 08/13 00:19 Order name: CT Head C Spine cp 08/13 00: Order name: XRAY Shoulder LEFT 2 view cp Administered Medications: 00:41 Drug: morphine IM 4 mg IM once Route: IM; Site: right deltoid; lg3 02:46 Follow up: Response: No adverse reaction; Marked relief of symptoms lg3 00:42 Drug: Ketorolac IM 30 mg IM once Route: IM; Site: right deltoid; lg3 02:47 Follow up: Response: No adverse reaction; Marked relief of symptoms lg3 00:42 Drug: Dexamethasone IM 10 mg IM once Route: IM; Site: left deltoid; lg3 02:46 Follow up: Response: No adverse reaction; Marked relief of symptoms lg3 Disposition: 03:09 Co-signature as Attending Physician, Corby Burnett MD I agree with the assessment and sp4 plan of care. I reviewed the patient's care provided by Advanced Practice Provider \T\ agree w/ the diagnosis \T\ care plan. I personally saw the pt \T\ performed a substantive portion of the visit, incldng all aspects of the (History/Exam/Medical Decision Making). Disposition Summary: 08/13/24 03:11 Discharge Ordered Problem: new sp4 Symptoms: have improved sp4 Condition: Stable sp4 Diagnosis - Diffuse goiter, Thyroid enlargement, acute left shoulder pain sp4 Discharge Instructions: - Discharge Summary Sheet sp4 - Goiter sp4 Forms: - Patient Portal Instructions sp4 Signatures: Dispatcher [employer] EDMS Juan A Sánchez PA PA cp Able, Lacie, RN RN lg3 Jameel Jaime MD MD sp4 Corrections: (The following items were deleted from the chart) 00:20 00:20 Urinalysis+U.LAB.BRZ ordered. EDMS EDMS 00:20 00:20 Test, Urine+UC.LAB.BRZ ordered. EDMS EDMS 00:20 00:20 Head C Spine MPR Wo Con+CT.RAD.BRZ ordered. EDMS EDMS 00:20 00:20 Shoulder Left 2 View+RAD.RAD.BRZ ordered. EDMS EDMS 03:00 00:19 Sling ordered. cp lg3
--- NOTE | 2024-08-13 03:12 | ER ---
Nurse's Notes [facility] Name: Adelaide Larson Age: 24 yrs Sex: Female : 2000 Arrival Date: 08/12/2024 Time: 23:43 Bed DX4 Private MD: Corby Burnett B Diagnosis: Diffuse goiter, Thyroid enlargement, acute left shoulder pain Presentation: 08/13 00:19 Chief complaint: Patient states: left shoulder pain radiating to left shoulder and left lg3 arm since this morning. Coronavirus screen: Client denies travel out of the [place] in the last 14 days. At this time, the client does not indicate any symptoms associated with coronavirus-19. Ebola Screen: No symptoms or risks identified at this time. Initial Sepsis Screen: Does the patient meet any 2 criteria? No. Patient's initial sepsis screen is negative. Does the patient have a suspected source of infection? No. Patient's initial sepsis screen is negative. Risk Assessment: Do you want to hurt yourself or someone else? Patient reports no desire to harm self or others. Onset of symptoms was August 12, 2024. 00:19 Method Of Arrival: Ambulatory lg3 00:19 Acuity: LUIZ 4 lg3 Triage Assessment: 00:20 General: Appears in no apparent distress. comfortable, Behavior is calm, cooperative. lg3 Pain: Complains of pain in left shoulder Pain radiates to left neck, left arm. EENT: No deficits noted. No signs and/or symptoms were reported regarding the EENT system. Neuro: No deficits noted. Wolff Agitation-Sedation Scale (RASS): 0 - Alert and Calm Level of Consciousness is awake, alert, obeys commands, Oriented to person, place, time, situation. Cardiovascular: No deficits noted. Denies chest pain, shortness of breath, Capillary refill < 3 seconds Clubbing of nail beds is absent JVD is absent Patient's skin is warm and dry. Respiratory: No deficits noted. Airway is patent Respiratory effort is even, unlabored, Respiratory pattern is regular, symmetrical. GI: No deficits noted. No signs and/or symptoms were reported involving the gastrointestinal system. : No deficits noted. No signs and/or symptoms were reported regarding the genitourinary system. Derm: No deficits noted. No signs and/or symptoms reported regarding the dermatologic system. Skin is intact, is healthy with good turgor, Skin is dry, Skin is normal, Skin temperature is warm. Musculoskeletal: Circulation, motion, and sensation intact. Range of motion: intact in all extremities, Reports pain in left shoulder, left neck, left arm. 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 - Infectious Disease History:: Denies. - Social history:: Smoking status: Patient denies any tobacco usage or history of. Patient/guardian denies using alcohol, street drugs. Screenin:31 [facility] ED Fall Risk Assessment (Adult) History of falling in the last 3 months, lg3 including since admission No falls in past 3 months (0 pts) Confusion or Disorientation No (0 pts) Intoxicated or Sedated No (0 pts) Impaired Gait No (0 pts) Mobility Assist Device Used No (0 pt) Altered Elimination No (0 pt) Score/Fall Risk Level 0 - 2 = Low Risk Oriented to surroundings, Maintained a safe environment, Educated pt \T\ family on fall prevention, incl call for assistance when getting out of bed, Assessed \T\ reinforced patient's understanding of fall precautions. Abuse screen: Denies threats or abuse. Denies injuries from another. Nutritional screening: No deficits noted. Tuberculosis screening: No symptoms or risk factors identified. Assessment: 00:31 General: see triage assessment. lg3 02:46 Reassessment: Patient appears in no apparent distress at this time. No changes from lg3 previously documented assessment. Patient and/or family updated on plan of care and expected duration. Pain level reassessed. Patient is alert, oriented x 3, equal unlabored respirations, skin warm/dry/pink. 03:15 Reassessment: Patient appears in no apparent distress at this time. No changes from lg3 previously documented assessment. Patient and/or family updated on plan of care and expected duration. Pain level reassessed. Patient is alert, oriented x 3, equal unlabored respirations, skin warm/dry/pink. Patient states feeling better. Patient states symptoms have improved. Vital Signs: 00:19 BP 121 / 80; Pulse 92; Resp 17 S; Temp 98.6(O); Pulse Ox 99% on R/A; Weight 86.18 kg lg3 (R); Height 4 ft. 11 in. (R); 03:00 BP 117 / 77; Pulse 85; Resp 18 S; Pulse Ox 100% on R/A; lg3 00:19 Body Mass Index 38.37 (86.18 kg, 149.86 cm) lg3 ED Course: 08/12 23:46 Patient arrived in ED. gm2 23:46 Corby Burnett MD is Private Physician. gm2 23:49 Juan A Sánchez PA is PHCP. cp 23:49 Jameel Jaime MD is Attending Physician. cp 08/13 00:20 Triage completed. lg3 00:20 Arm band placed on right wrist. lg3 00:31 Shahrzad Lake RN is Primary Nurse. lg3 00:31 Patient has correct armband on for positive identification. lg3 00:42 Test, Urine Sent. lg3 00:42 Urinalysis w/ reflexes Sent. lg3 00:50 CT Head C Spine In Process Unspecified. EDMS 00:53 XRAY Shoulder LEFT 2 view In Process Unspecified. EDMS 03:10 Corby Burnett MD is Referral Physician. sp4 03:10 Jameel Jaime MD is Referral Physician. sp4 03:10 Referral Physician role handed off by Jameel Jaime MD sp4 03:16 No provider procedures requiring assistance completed. Patient did not have IV access lg3 during this emergency room visit. Administered Medications: 00:41 Drug: morphine IM 4 mg IM once Route: IM; Site: right deltoid; lg3 02:46 Follow up: Response: No adverse reaction; Marked relief of symptoms lg3 00:42 Drug: Ketorolac IM 30 mg IM once Route: IM; Site: right deltoid; lg3 02:47 Follow up: Response: No adverse reaction; Marked relief of symptoms lg3 00:42 Drug: Dexamethasone IM 10 mg IM once Route: IM; Site: left deltoid; lg3 02:46 Follow up: Response: No adverse reaction; Marked relief of symptoms lg3 Medication: 03:17 VIS not applicable for this client. lg3 Outcome: 03:11 Discharge ordered by . sp4 03:16 Discharged to home ambulatory, lg3 03:16 Condition: stable 03:16 Discharge instructions given to patient, Instructed on discharge instructions, follow up and referral plans. Demonstrated understanding of instructions, follow-up care, 03:17 Patient left the ED. lg3 Signatures: Dispatcher [employer] EDMS Juan A Snáchez PA PA cp Able, Lacie RN RN lg3 Jameel Jaime MD MD sp4 Nasima Sotomayor gm2
--- NOTE | 2024-08-13 06:09 | RAD REPORT ---
EXAM: Shoulder Left 2+ Views XR Left Shoulder 2 Views HISTORY: Pain; Numbness/tingling; Weakness COMPARISON: None TECHNIQUE: Left Shoulder 2 Views FINDINGS: No fracture or dislocation. No significant sclerotic/lytic bone lesion. Joint spaces unremarkable. Soft tissues unremarkable. IMPRESSION: Normal Left Shoulder Radiographs. Electronically signed by: Aroldo Birmingham MD 08/13/2024 04:08 AM CDT RP Due to temporary technical issues with the PACS/JoMaJa reporting system, reports are being tila d by the in-house radiologist without review as a courtesy to ensure prompt reporting the interpreting radiologist is fully responsible for the content of the report. Transcribed Date/Time: 08/13/2024 6:09 AM
[2024-08-13 06:49] VITALS: TEMP 98.6
[2024-08-13 06:50] VITALS: BP 117/77; O2SAT 100
== END 2024-08-13 03:17 | disposition home or self-care (01) ==
LOC: ER 23:43
DX: E04.8 Other specified nontoxic goiter (principal); M25.512 Pain in left shoulder; R53.1 Weakness
CPT/HCPCS: 81001; 81025; 70450; 72125; 73030; 96372; 99284; J1100

== ENCOUNTER 2024-09-01 21:31 | Emergency (ER) | payer BC ==
--- NOTE | 2024-09-01 22:30 | RAD REPORT ---
EXAMINATION: US PELVIS TRANSVAGINAL WITH DOPPLER CLINICAL INDICATION: Female 24 years old. ABD PAIN TECHNIQUE: Real-time ultrasonography of the pelvis was performed transvaginally. Color and spectral D oppler evaluation of the ovaries was performed. COMPARISON: 03/30/2024 FINDINGS: UTERUS AND CERVIX: The uterus measures 7.0 x 4.2 x 3.3 cm (cervix to fundus x AP x transverse). The u terus is normal. No masses seen The endometrium is normal, 3 mm in thickness. RIGHT OVARY: Normal. The right ovary measures 3.0 x 2.0 x 1.8 cm. Normal color and spectral Doppler evaluation of the right ovary.. LEFT OVARY: Normal. The left ovary measures 3.0 x 2.3 x 1.5 cm. Normal color and spectral Doppler evaluation of the left ovary.. FREE FLUID: No free fluid. ADDITIONAL FINDINGS: IMPRESSION: Unremarkable exmaination.
[2024-09-01 22:43] LABS: Specific Gravity 1.007 (1.005-1.030); Urine Bilirubin NEGATIVE (Negative); Urine Blood Negative (Negative); Urine Clarity Clear (Clear); Urine Color Colorless (Yellow); Urine Glucose NEGATIVE (Negative); Urine Ketones NEGATIVE (Negative); Urine Microscopic Reflex YN NO UMIC; Urine Nitrite NEGATIVE (Negative); Urine Protein NEGATIVE (Negative); Urine Urobilinogen Normal (Normal)
[2024-09-01 23:00] LABS: Specific Gravity 1.008 (1.005-1.030)
[2024-09-01 23:06] LABS: SARS-CoV-2 Antigen CONTROL BLUE LINE VIS/BG OK; SARS-CoV-2 Antigen Rapid Res Negative (Negative)
[2024-09-01] MEDS ORDERED: HYDROCODONE/CHLORPHEN 5 ML/OSYR ONE (23:22)
[2024-09-01] MEDS ORDERED: KETOROLAC 30 MG/ML INJ ONE (23:22)
--- NOTE | 2024-09-01 23:52 | EDPHYS ---
Physician Documentation [facility] Name: Adelaide Larson Age: 24 yrs Sex: Female : 2000 Arrival Date: 09/01/2024 Time: 21:31 Bed 15 Private MD: ED Physician Jameel Jaime HPI: 09/01 23:01 This 24 yrs old Female presents to ER via Ambulatory with complaints of Flu Symptoms. kb 23:01 Pt is a 24 year old female who presents for left groin pain that started 2 days ago and kb cough that started last night. Denies fever, congestion. Reports sore throat. Denies fever, nausea, vomiting, diarrhea. . Historical: - Allergies: 21:34 Bactrim; ha1 21:34 Zithromax; ha1 21:34 Zosyn in dextrose (iso-osm); ha1 - Home Meds: 21:34 Ativan 1 mg Oral tablet 1 tab Every other day [Active]; ha1 - PMHx: 21:34 Anxiety; Asthma; Depression; HYPOGLYCEMIA; Hypothyroidism; scoliosis; ha1 - PSHx: 21:34 Appendectomy; Cholecystectomy; Hip surgery; ha1 - Immunization history:: Adult Immunizations up to date. - Infectious Disease History:: Denies. - Social history:: Smoking status: Patient denies any tobacco usage or history of. ROS: 23:00 Constitutional: As per HPI kb Exam: 23:00 Constitutional: This is a well developed, well nourished patient who is awake, alert, kb and in no acute distress. Head/Face: Normocephalic, atraumatic. ENT: Moist Mucous membranes Cardiovascular: Regular rate Respiratory: Respirations even and unlabored. No increased work of breathing. Talking in full sentences Abdomen/GI: Soft, non-tender. No distention Skin: Warm, dry with normal turgor. Normal color. MS/ Extremity: Pulses equal, no cyanosis. Neurovascular intact. Full, normal range of motion. Neuro: Awake and alert, GCS 15, oriented to person, place, time, and situation. 23:00 Musculoskeletal/extremity: Extremities: grossly normal except: noted in the left inguinal area: pain, tenderness, ROM: intact in all extremities, Circulation is intact in all extremities. Sensation intact. Vital Signs: 21:43 BP 140 / 81; Pulse 95; Resp 16 S; Temp 98.5; Pulse Ox 99% on R/A; Weight 86.18 kg; ha1 Height 4 ft. 11 in. ; 23:30 BP 110 / 84; Pulse 85; Resp 16; Pulse Ox 98% on R/A; jb4 21:43 Body Mass Index 38.37 (86.18 kg, 149.86 cm) ha1 MDM: 21:37 Medical Screening Exam initiated kb 23:01 Data reviewed: vital signs, nurses notes. kb 23:50 Differential diagnosis: flu, covid, uri, strep, ovarian cyst, fracture. Counseling: I kb had a detailed discussion with the patient and/or guardian regarding the historical points, exam findings, and any diagnostic results supporting the discharge/admit diagnosis, lab results, radiology results, the need for outpatient follow up, a family practitioner, to return to the emergency department if symptoms worsen or persist or if there are any questions or concerns that arise at home. 09/01 21:42 Order name: Test, Urine; Complete Time: 23:00 kb 09/01 21:42 Order name: Urinalysis w/ reflexes; Complete Time: 22:43 kb 09/01 21:42 Order name: Flu; Complete Time: 23:08 kb 09/01 21:42 Order name: SARS-COV-2 Antigen Rapid; Complete Time: 23:08 kb 09/01 21:42 Order name: Strep; Complete Time: 23:08 kb 09/01 23:08 Order name: Throat Culture EDMS 09/01 21:42 Order name: Pelvis XRAY kb 09/01 21:42 Order name: US Transvaginal Study (Probe); Complete Time: 22:32 kb Administered Medications: 23:09 CANCELLED (Duplicate Order): [id number] mg IVP once kb 23:32 Drug: Ketorolac IM 30 mg IM once Route: IM; Site: right deltoid; jb4 09/02 00:06 Follow up: Response: No adverse reaction; Marked relief of symptoms jb4 09/01 23:33 Drug: Tussionex Pennkinetic ER PO Suspension 5 ml PO once Route: PO; jb4 09/02 00:06 Follow up: Response: No adverse reaction; Marked relief of symptoms jb4 Disposition: 00:58 Co-signature as Attending Physician, Jameel Jaime MD I agree with the assessment sp4 and plan of care. I reviewed the patient's care provided by the Advanced Practice Provider and agree with the diagnosis and treatment plan. Disposition Summary: 09/01/24 23:51 Discharge Ordered Notes: Location: Home kb Condition: Stable kb Diagnosis - Pain in left hip - groin kb - Cough kb Followup: kb - With: Emergency Department - When: As needed - Reason: Worsening of condition Followup: kb - With: Private Physician - When: 2 - 3 days - Reason: Recheck today's complaints, Continuance of care, Re-evaluation by your physician Discharge Instructions: - Discharge Summary Sheet kb - Musculoskeletal Pain kb - Cough, Adult, [id number] kb Forms: - Medication Reconciliation Form kb - Antibiotic Education kb - Prescription Opioid Use kb - Patient Portal Instructions kb - Leadership Thank You Letter kb Prescriptions: - Tessalon Perles 100 mg Oral Capsule - take 1 capsule ORAL route every 8 hours As needed; 15 capsule; Refills: 0, kb Product Selection Permitted - Diclofenac Sodium 75 mg Oral tablet, delayed release (enteric coated) - take 1 tablet ORAL route 2 times per day As needed; 30 tablet; Refills: 0, kb Product Selection Permitted - orphenadrine citrate 100 mg Oral Tablet Sustained Release - take 1 tablet ORAL route 2 times per day As needed; 20 tablet; Refills: 0, kb Product Selection Permitted Signatures: Dispatcher [employer] EDMS Sahara Lynn, SUPPLY CHAIN TECHNICIAN-C SUPPLY CHAIN TECHNICIAN-CkLauri Harris RN RN jb4 aKley Jennings RN RN ha1 Jameel Jaime MD MD sp4 Corrections: (The following items were deleted from the chart) 09/01 21:42 21:42 Test, Urine+UC.LAB.BRZ ordered. EDMS EDMS 21:42 21:42 Urinalysis+U.LAB.BRZ ordered. EDTX EDMS 21:42 21:42 Influenza Screen (A \T\ B)+BA.LAB.BRZ ordered. EDTX EDMS 21:42 21:42 SARS-COV-2 Antigen Rapid+I.LAB.BRZ ordered. EDTX EDMS 21:42 21:42 Group A Streptococcus Rapid Sc+BA.LAB.BRZ ordered. EDTX EDMS 23:09 23:08 Ketorolac IVP 15 mg IVP once ordered. kb kb
--- NOTE | 2024-09-01 23:52 | ER ---
Nurse's Notes [facility] Name: Adelaide Larson Age: 24 yrs Sex: Female : 2000 Arrival Date: 09/01/2024 Time: 21:31 Bed 15 Private MD: Diagnosis: Pain in left hip-groin;Cough Presentation: 09/01 21:43 Chief complaint: Patient states: flu like symptoms, pain on the left lower quadrant. ha1 Coronavirus screen: Client denies travel out of the [place] in the last 14 days. Ebola Screen: No symptoms or risks identified at this time. Initial Sepsis Screen: Does the patient meet any 2 criteria? No. Patient's initial sepsis screen is negative. Does the patient have a suspected source of infection? No. Patient's initial sepsis screen is negative. Risk Assessment: Do you want to hurt yourself or someone else? Patient reports no desire to harm self or others. Onset of symptoms was September 01, 2024. 21:43 Method Of Arrival: Ambulatory 1 21:43 Acuity: LUIZ 4 ha1 Triage Assessment: 21:34 General: Appears uncomfortable, Behavior is cooperative. Pain: Complains of pain in ha1 left lower quadrant Pain does not radiate. Pain currently is 8 out of 10 on a pain scale. Quality of pain is described as aching. Neuro: Level of Consciousness is awake, alert, obeys commands, Oriented to person, place, time, situation. Cardiovascular: Capillary refill < 3 seconds Patient's skin is warm and dry. Respiratory: Reports cough that is dry, persistent Airway is patent Respiratory effort is even, unlabored, Respiratory pattern is regular, symmetrical. GI: Reports lower abdominal pain. Historical: - Allergies: 21:34 Bactrim; ha1 21:34 Zithromax; ha1 21:34 Zosyn in dextrose (iso-osm); ha1 - Home Meds: 21:34 Ativan 1 mg Oral tablet 1 tab Every other day [Active]; ha1 - PMHx: 21:34 Anxiety; Asthma; Depression; HYPOGLYCEMIA; Hypothyroidism; scoliosis; ha1 - PSHx: 21:34 Appendectomy; Cholecystectomy; Hip surgery; ha1 - Immunization history:: Adult Immunizations up to date. - Infectious Disease History:: Denies. - Social history:: Smoking status: Patient denies any tobacco usage or history of. Screenin:30 [facility] ED Fall Risk Assessment (Adult) History of falling in the last 3 months, jb4 including since admission No falls in past 3 months (0 pts) Confusion or Disorientation No (0 pts) Intoxicated or Sedated No (0 pts) Impaired Gait No (0 pts) Mobility Assist Device Used No (0 pt) Altered Elimination No (0 pt) Score/Fall Risk Level 0 - 2 = Low Risk. Abuse screen: Denies threats or abuse. Nutritional screening: No deficits noted. Tuberculosis screening: No symptoms or risk factors identified. Assessment: 23:00 Reassessment: Patient appears in no apparent distress at this time. Patient and/or jb4 family updated on plan of care and expected duration. Pain level reassessed. Patient is alert, oriented x 3, equal unlabored respirations, skin warm/dry/pink. 09/02 00:03 Reassessment: Patient appears in no apparent distress at this time. Patient and/or jb4 family updated on plan of care and expected duration. Pain level reassessed. Patient is alert, oriented x 3, equal unlabored respirations, skin warm/dry/pink. Patient states feeling better. Vital Signs: 09/01 21:43 BP 140 / 81; Pulse 95; Resp 16 S; Temp 98.5; Pulse Ox 99% on R/A; Weight 86.18 kg; ha1 Height 4 ft. 11 in. ; 23:30 BP 110 / 84; Pulse 85; Resp 16; Pulse Ox 98% on R/A; jb4 21:43 Body Mass Index 38.37 (86.18 kg, 149.86 cm) ha1 ED Course: 21:33 Patient arrived in ED. im 21:37 Sahara Lynn FNP-C is PHCP. kb 21:37 Jameel Jaime MD is Attending Physician. kb 21:54 Triage completed. ha1 22:16 US Transvaginal Study (Probe) In Process Unspecified. EDMS 22:58 Pelvis XRAY In Process Unspecified. EDMS 23:32 Lauri Okeefe, RN is Primary Nurse. jb4 09/02 00:05 Patient has correct armband on for positive identification. Bed in low position. Call jb4 light in reach. Side rails up X 1. Provided Education on: discharge instructions.. 00:06 No provider procedures requiring assistance completed. Patient did not have IV access jb4 during this emergency room visit. Administered Medications: 09/01 23:09 CANCELLED (Duplicate Order): [id number] mg IVP once heather 23:32 Drug: Ketorolac IM 30 mg IM once Route: IM; Site: right deltoid; jb4 09/02 00:06 Follow up: Response: No adverse reaction; Marked relief of symptoms jb4 09/01 23:33 Drug: Tussionex Pennkinetic ER PO Suspension 5 ml PO once Route: PO; jb4 09/02 00:06 Follow up: Response: No adverse reaction; Marked relief of symptoms jb4 Medication: 09/01 23:30 VIS not applicable for this client. jb4 Outcome: 23:51 Discharge ordered by MD. romero 09/02 00:06 Discharged to home ambulatory, jb4 Condition: stable Discharge instructions given to patient, Instructed on discharge instructions, follow up and referral plans. no drinking with medication, no driving heavy equipment, medication usage, Demonstrated understanding of instructions, follow-up care, medications, Prescriptions given X 3, 00:06 Patient left the ED. jb4 Signatures: Dispatcher [employer] EDMS Sahara Lynn, FINANCIAL UNDERWRITER-C FINANCIAL UNDERWRITER-Lauri Talbot RN RN jb4 Kaley Jennings RN RN ha1 Char Greenwood Corrections: (The following items were deleted from the chart) 00:06 00:06 IV discontinued, intact, bleeding controlled, No redness/swelling at site. jb4 Pressure dressing applied, jb4
[2024-09-02 00:11] VITALS: TEMP 98.5
[2024-09-02 00:12] VITALS: BP 110/84; O2SAT 98
--- NOTE | 2024-09-02 05:54 | RAD REPORT ---
CLINICAL HISTORY: Pain. COMPARISON: None. TECHNIQUE: XR PELVIS 1-2 VIEWS 09/01/2024 9:42 PM BLEACH SUPERVISOR FINDINGS: There is no fracture. There is mild degenerative narrowing of the right hip joint. Soft tissues are u nremarkable. IMPRESSION: No acute osseous findings. Electronically signed by: Michael Carver MD 09/01/2024 11:43 PM BLEACH SUPERVISOR RP Due to temporary technical issues with the PACS/Infrascale reporting system, reports are being tila d by the in-house radiologist without review as a courtesy to ensure prompt reporting the interpreting radiologist is fully responsible for the content of the report. Transcribed Date/Time: 09/02/2024 5:54 AM
== END 2024-09-02 00:06 | disposition home or self-care (01) ==
LOC: ER 21:31
DX: R05.9 Cough, unspecified (principal); M25.552 Pain in left hip; Z11.52 Encounter for screening for COVID-19
CPT/HCPCS: 36415; 72170; 76830; 81003; 81025; 87070; 87081; 87804; 87811; 96372; 99284

== ENCOUNTER 2024-09-25 20:40 | Emergency (ER) | payer BC ==
[2024-09-25] MEDS ORDERED: IPRATROPIUM BROM 0.5MG/2.5ML ONE (20:48)
[2024-09-25] MEDS ORDERED: METHYLPREDNISOLONE 125 MG INJ ONE (20:48)
[2024-09-25] MEDS ORDERED: ALBUTEROL 2.5 MG/3 ML NEB SOL ONE (20:48)
[2024-09-25] MEDS ORDERED: DIAZEPAM 5 MG TABLET ONE (20:48)
--- NOTE | 2024-09-25 23:24 | EDPHYS ---
Physician Documentation [facility] Name: Adelaide Larson Age: 24 yrs Sex: Female : 2000 Arrival Date: 09/25/2024 Time: 20:40 Bed 6 Private MD: ED Physician Jameel Jaime HPI: 09/25 23:23 This 24 yrs old Female presents to ER via Ambulatory with complaints of sp4 dyspnea, wheezing . 09/26 19:18 Patient presents with acute wheezing shortness of breath typical of her asthma attack.. 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 - Infectious Disease History:: Denies. - Social history:: Smoking status: Patient denies any tobacco usage or history of. - Family history:: not pertinent. ROS: 09/26 19:18 Constitutional: Negative for fever, chills, and weight loss, Positive for dyspena and sp4 wheezing All other systems are negative, Exam: 19:26 Constitutional: This is a well developed, well nourished patient who is awake, alert, sp4 and in no acute distress. Head/Face: Normocephalic, atraumatic. Eyes: Pupils equal round and reactive to light, extra-ocular motions intact. Lids and lashes normal. Conjunctiva and sclera are not injected. Cornea within normal limits. Periorbital areas with no swelling, redness, or edema. ENT: Nares patent. No nasal discharge, no septal abnormalities noted. Tympanic membranes are normal and external auditory canals are clear. Oropharynx with no redness, swelling, or masses, exudates, or evidence of obstruction, uvula midline. Mucous membranes moist. Neck: Trachea midline, no thyromegaly or masses palpated, and no cervical lymphadenopathy. Supple, full range of motion without nuchal rigidity, or vertebral point tenderness. Chest/axilla: Normal chest wall appearance and motion. Nontender with no deformity. No lesions are appreciated. Cardiovascular: Regular rate and rhythm with a normal S1 and S2. No gallops, murmurs, or rubs. Normal PMI, no JVD. No pulse deficits. Respiratory: Lungs have equal breath sounds bilaterally, clear to auscultation and percussion. No rales, rhonchi , bilateral expiratory wheezes in all lung topete. Abdomen/GI: Soft, with normal bowel sounds. No distension or tympany. No guarding or rebound. No evidence of tenderness throughout. Back: No spinal tenderness. No costovertebral tenderness. Skin: Warm, dry with normal turgor. Normal color with no rashes, no lesions, and no evidence of cellulitis. MS/ Extremity: Pulses equal, no cyanosis. Neurovascular intact. Full, normal range of motion. Neuro: Awake and alert, GCS 15, oriented to person, place, time, and situation. Cranial nerves II-XII grossly intact. Motor strength 5/5 in all extremities. Sensory grossly intact. Psych: Awake, alert, with orientation to person, place and time. Behavior, mood, and affect are within normal limits Vital Signs: 09/25 20:41 BP 111 / 62; Pulse 107; Resp 22; Temp 97.6; Pulse Ox 100% ; Weight 86.18 kg; Height 4 cp4 ft. 11 in. ; Pain 0/10; 22:00 BP 100 / 51; Pulse 117; Resp 18; Pulse Ox 100% ; cp4 23:00 BP 102 / 60; Pulse 106; Resp 18; Pulse Ox 100% ; cp4 20:41 Body Mass Index 38.37 (86.18 kg, 149.86 cm) cp4 20:41 Pain Scale: Adult cp4 [place] Coma Score: 09/26 19:26 Eye Response: spontaneous(4). Motor Response: obeys commands(6). Verbal Response: sp4 oriented(5). Total: 15. MDM: 09/25 20:44 Medical Screening Exam initiated sp4 09/26 19:27 Differential diagnosis: asthma, Bronchitis CHF exacerbation, Chronic Obstructive sp4 Pulmonary Disease. Data reviewed: vital signs, nurses notes, lab test result(s). ED course: Improved with breathing treatments. Stable for discharge home. 09/25 20:44 Order name: Test, Serum; Complete Time: 23:21 sp4 09/25 20:44 Order name: Saline Lock; Complete Time: 21:05 sp4 Administered Medications: 09/25 20:55 Drug: Diazepam PO 10 mg PO once Route: PO; cp4 21:47 Follow up: Response: No adverse reaction cp4 21:05 Drug: Albuterol Inhalation 2.5 mg Inhalation every 20 minutes x3 Route: Inhalation; cp4 21:05 Drug: MethylPrednisoLONE IVP 125 mg IVP once Route: IVP; Site: right antecubital; cp4 21:47 Follow up: Response: No adverse reaction cp4 21:05 Drug: Ipratropium Inhalation Aerosol 0.5 mg Inhalation once; Every 20 min for a total cp4 of 3 treatments x3 Route: Inhalation; 21:25 Drug: Albuterol Inhalation 2.5 mg Inhalation every 20 minutes x3 Route: Inhalation; cp4 21:25 Drug: Ipratropium Inhalation Aerosol 0.5 mg Inhalation once; Every 20 min for a total cp4 of 3 treatments x3 Route: Inhalation; 21:47 Drug: Albuterol Inhalation 2.5 mg Inhalation every 20 minutes x3 Route: Inhalation; cp4 21:47 Follow up: Response: No adverse reaction cp4 21:47 Drug: Ipratropium Inhalation Aerosol 0.5 mg Inhalation once; Every 20 min for a total cp4 of 3 treatments x3 Route: Inhalation; 21:47 Follow up: Response: No adverse reaction cp4 Disposition: 09/26 19:27 Chart complete. sp4 Disposition Summary: 09/25/24 23:24 Discharge Ordered Notes: Location: Home sp4 Problem: new sp4 Symptoms: have improved sp4 Condition: Stable sp4 Diagnosis - Moderate persistent asthma with (acute) exacerbation sp4 Followup: sp4 - With: Private Physician - When: 7 - 10 days - Reason: Recheck today's complaints Discharge Instructions: - Discharge Summary Sheet sp4 - Asthma, Adult sp4 Forms: - Patient Portal Instructions sp4 Prescriptions: - Albuterol Sulfate 2.5 mg /3 mL (0.083 %) Inhalation Solution for Nebulization - inhale 1 unit NEBULIZATION route every 4 hours As needed PRN wheezing, sp4 Dispense 50 vials; 50 unit; Refills: 0, Product Selection Permitted - Tramadol 50 mg Oral Tablet - take 1 tablet ORAL route every 8 hours as needed; 12 tablet; Refills: 0, sp4 Product Selection Permitted - Prednisone 20 mg Oral Tablet - take 2 tablets ORAL route once daily for 5 days; 10 tablet; Refills: 0, Product sp4 Selection Permitted Signatures: Dispatcher MedHoJameel Saldana MD MD sp4 Kajal Lugo cp4 Corrections: (The following items were deleted from the chart) 09/25 20:44 20:44 TEST, SERUM+SC.LAB.BRZ ordered. COLETN ABEL
--- NOTE | 2024-09-25 23:24 | ER ---
Nurse's Notes [facility] Name: Adelaide Larson Age: 24 yrs Sex: Female : 2000 Arrival Date: 09/25/2024 Time: 20:40 Bed 6 Private MD: Diagnosis: Moderate persistent asthma with (acute) exacerbation Presentation: 09/25 20:41 Chief complaint: Patient states: asthma attack that started an hour ago. Coronavirus cp4 screen: Client denies travel out of the [place] in the last 14 days. Ebola Screen: Patient negative for fever greater than or equal to 101.5 degrees Fahrenheit, and additional compatible Ebola Virus Disease symptoms Patient denies exposure to infectious person. Patient denies travel to an Ebola-affected area in the 21 days before illness onset. No symptoms or risks identified at this time. Initial Sepsis Screen: Does the patient meet any 2 criteria? RR > 20 per min. HR > 90 bpm. Yes Does the patient have a suspected source of infection? No. Patient's initial sepsis screen is negative. Risk Assessment: Do you want to hurt yourself or someone else? Patient reports no desire to harm self or others. Onset of symptoms was September 25, 2024 at 20:00. 20:41 Method Of Arrival: Ambulatory cp4 20:41 Acuity: LUIZ 3 cp4 Triage Assessment: 20:43 General: Appears in no apparent distress. uncomfortable, Behavior is calm, cooperative, cp4 appropriate for age. Pain: Denies pain. EENT: No signs and/or symptoms were reported regarding the EENT system. Neuro: Level of Consciousness is awake, alert, obeys commands, Oriented to person, place, time, situation. Cardiovascular: Patient's skin is warm and dry. Respiratory: Airway is patent Respiratory effort is even, labored, gasping. GI: No signs and/or symptoms were reported involving the gastrointestinal system. : No signs and/or symptoms were reported regarding the genitourinary system. Derm: No signs and/or symptoms reported regarding the dermatologic system. Musculoskeletal: No signs and/or symptoms reported regarding the musculoskeletal system. 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 - Infectious Disease History:: Denies. - Social history:: Smoking status: Patient denies any tobacco usage or history of. - Family history:: not pertinent. Screenin:45 [facility] ED Fall Risk Assessment (Adult) History of falling in the last 3 months, cp4 including since admission No falls in past 3 months (0 pts) Confusion or Disorientation No (0 pts) Intoxicated or Sedated No (0 pts) Impaired Gait No (0 pts) Mobility Assist Device Used No (0 pt) Altered Elimination No (0 pt) Score/Fall Risk Level 0 - 2 = Low Risk Oriented to surroundings, Maintained a safe environment, Assessed \T\ reinforced patient's understanding of fall precautions, Hourly rounding (assess needs \T\ fall precautionary measures) done. Abuse screen: Denies threats or abuse. Nutritional screening: No deficits noted. Tuberculosis screening: No symptoms or risk factors identified. Assessment: 20:45 Reassessment: No changes from previously documented assessment. cp4 21:06 Respiratory: Breath sounds with wheezes bilaterally. cp4 22:00 Reassessment: Patient appears in no apparent distress at this time. Patient and/or cp4 family updated on plan of care and expected duration. Pain level reassessed. Patient is alert, oriented x 3, equal unlabored respirations, skin warm/dry/pink. 23:00 Reassessment: Patient appears in no apparent distress at this time. Patient and/or cp4 family updated on plan of care and expected duration. Pain level reassessed. Patient is alert, oriented x 3, equal unlabored respirations, skin warm/dry/pink. Vital Signs: 20:41 BP 111 / 62; Pulse 107; Resp 22; Temp 97.6; Pulse Ox 100% ; Weight 86.18 kg; Height 4 cp4 ft. 11 in. ; Pain 0/10; 22:00 BP 100 / 51; Pulse 117; Resp 18; Pulse Ox 100% ; cp4 23:00 BP 102 / 60; Pulse 106; Resp 18; Pulse Ox 100% ; cp4 20:41 Body Mass Index 38.37 (86.18 kg, 149.86 cm) cp4 20:41 Pain Scale: Adult cp4 [place] Coma Score: 09/26 19:26 Eye Response: spontaneous(4). Motor Response: obeys commands(6). Verbal Response: sp4 oriented(5). Total: 15. ED Course: 09/25 20:41 Patient arrived in ED. cp4 20:41 Kjaal Lugo is Primary Nurse. cp4 20:41 Jameel Jaime MD is Attending Physician. sp4 20:43 Triage completed. cp4 20:43 Arm band placed on right wrist. Patient placed in an exam room, on a stretcher. cp4 20:45 Bed in low position. Call light in reach. Side rails up X 1. cp4 20:45 No provider procedures requiring assistance completed. cp4 21:06 Test, Serum Sent. cp4 21:06 Initial lab(s) drawn, by az, sent to lab. Inserted saline lock: 22 gauge in right cp4 antecubital area, using aseptic technique. Blood collected. Flushed with 10 mL NS. 23:33 Provided Education on: asthma. cp4 23:33 intact, bleeding controlled, No redness/swelling at site. Pressure dressing applied. cp4 Administered Medications: 20:55 Drug: Diazepam PO 10 mg PO once Route: PO; cp4 21:47 Follow up: Response: No adverse reaction cp4 21:05 Drug: Albuterol Inhalation 2.5 mg Inhalation every 20 minutes x3 Route: Inhalation; cp4 21:05 Drug: MethylPrednisoLONE IVP 125 mg IVP once Route: IVP; Site: right antecubital; cp4 21:47 Follow up: Response: No adverse reaction cp4 21:05 Drug: Ipratropium Inhalation Aerosol 0.5 mg Inhalation once; Every 20 min for a total cp4 of 3 treatments x3 Route: Inhalation; 21:25 Drug: Albuterol Inhalation 2.5 mg Inhalation every 20 minutes x3 Route: Inhalation; cp4 21:25 Drug: Ipratropium Inhalation Aerosol 0.5 mg Inhalation once; Every 20 min for a total cp4 of 3 treatments x3 Route: Inhalation; 21:47 Drug: Albuterol Inhalation 2.5 mg Inhalation every 20 minutes x3 Route: Inhalation; cp4 21:47 Follow up: Response: No adverse reaction cp4 21:47 Drug: Ipratropium Inhalation Aerosol 0.5 mg Inhalation once; Every 20 min for a total cp4 of 3 treatments x3 Route: Inhalation; 21:47 Follow up: Response: No adverse reaction cp4 Medication: 20:45 VIS not applicable for this client. cp4 Outcome: 23:24 Discharge ordered by . sp4 23:33 Discharged to home ambulatory, cp4 23:33 Condition: stable 23:33 Discharge instructions given to patient, Instructed on discharge instructions, follow up and referral plans. medication usage, Demonstrated understanding of instructions, follow-up care, medications, Prescriptions given X 2, 23:33 Patient left the ED. cp4 Signatures: Jameel Jaime MD MD sp4 Kajal Lugo cp4
[2024-09-26 03:55] VITALS: TEMP 97.6; O2SAT 100
[2024-09-26 04:06] VITALS: BP 102/60
== END 2024-09-25 23:33 | disposition home or self-care (01) ==
LOC: ER 20:40
DX: J45.41 Moderate persistent asthma with (acute) exacerbation (principal)
CPT/HCPCS: 36415; 84703; 96374; 99285; J7613; J7644; J2919

== ENCOUNTER 2024-10-12 07:20 | Emergency (ER) | payer BC ==
[2024-10-12] MEDS ORDERED: METHYLPREDNISOLONE 125 MG INJ ONE (07:56)
[2024-10-12] MEDS ORDERED: LEVALBUTEROL 1.25 MG/3 ML NEB ONE (07:56)
--- NOTE | 2024-10-12 08:00 | RAD REPORT ---
EXAM: Chest Single View HISTORY: Cough;Chest pain COMPARISON: 12/21/2023 FINDINGS: LUNGS/PLEURA: The lungs are clear. No pleural effusions or pneumothorax. No pulmonary edema. MEDIASTINUM: The mediastinal silhouette is within normal limits. CARDIAC: The cardiac silhouette is within normal limits. UPPER ABDOMEN: No significant abnormality. BONES: No acute fracture. LINES/TUBES/OTHER: N/A IMPRESSION: No evidence of acute cardiopulmonary disease.
[2024-10-12 08:01] LABS: Absolute Basophils 0.1 K/uL (0-0.5); Absolute Eosinophils 0.5 K/uL (0-0.5); Absolute Lymphocytes (CBC) 1.1 K/uL (0.7-4.9); Absolute Monocytes 0.5 K/uL (0.1-1.3); Absolute Neutrophil 3.5 K/uL (1.8-8.0); Hematocrit 36.5 % (36.0-45.0); Lymphocytes % 19.5 % (15.3-44.8); MCH 28.2 pg (27.0-35.0); MCV 85.4 fL (80-100); MPV 9.1 fL (7.6-11.3); Monocytes % 9.1 % (3.3-12.3); Neutrophils % 60.4 % (41.7-73.7); Nucleated Red Blood Cells % 0.1 % (0-0); Platelets 239 thou/uL (152-406); RBC Red Blood Cell Count 4.27 M/uL (3.86-4.86); Red Cell Distribution Width 16.1 % (12.1-15.2)
[2024-10-12] MEDS ORDERED: FAMOTIDINE 20 MG/2 ML VIAL IV ONE (08:07)
[2024-10-12] MEDS ORDERED: ONDANSETRON 4 MG/2 ML VIAL ONE (08:07)
[2024-10-12 08:13] LABS: Specific Gravity 1.017 (1.005-1.030)
[2024-10-12 08:17] LABS: Specific Gravity 1.017 (1.005-1.030); Sqamous Epithelial <5 /HPF (None Seen); Urine Bacteria None Seen /HPF (<20); Urine Bilirubin NEGATIVE (Negative); Urine Blood Negative (Negative); Urine Clarity Extremely Turbid (Clear); Urine Color Light-Yellow (Yellow); Urine Culture Reflex Order NOT NEEDED; Urine Glucose NEGATIVE (Negative); Urine Ketones NEGATIVE (Negative); Urine Microscopic Reflex YN ORDER UMIC; Urine Mucus Slight /HPF (None Seen); Urine Nitrite NEGATIVE (Negative); Urine Protein NEGATIVE (Negative); Urine RBC <5 /HPF (None Seen); Urine Urobilinogen Normal (Normal); Urine WBC <5 /HPF (<5); Urine pH 6.5 (5.0-7.0)
[2024-10-12 08:19] LABS: Albumin 3.3 g/dL (3.4-5.0); Anion Gap 5.6 mEq/L (5.0-15.0); Bilirubin Total 0.3 mg/dL (0.2-1.0); Globulin 3.2 g/dL (2.3-3.5); Potassium 3.6 mEq/L (3.5-5.1); Protein, Total 6.5 g/dL (6.4-8.2)
[2024-10-12 08:23] LABS: SARS-CoV-2 Antigen CONTROL BLUE LINE VIS/BG OK; SARS-CoV-2 Antigen Rapid Res Negative (Negative)
--- NOTE | 2024-10-12 09:09 | ER ---
[facility] Name: Adelaide Larson Age: 24 yrs Sex: Female : 2000 Arrival Date: 10/12/2024 Time: 07:20 Bed 16 Private MD: Diagnosis: Chest pain, unspecified Presentation: 10/12 07:32 Chief complaint: Patient states: "I just don't feel well and the R side of my chest ss hurts.". Coronavirus screen: Client denies travel out of the [place] in the last 14 days. Ebola Screen: Patient denies exposure to infectious person. Patient denies travel to an Ebola-affected area in the 21 days before illness onset. Initial Sepsis Screen: Does the patient meet any 2 criteria? No. Patient's initial sepsis screen is negative. Does the patient have a suspected source of infection? No. Patient's initial sepsis screen is negative. Risk Assessment: Do you want to hurt yourself or someone else? Patient reports no desire to harm self or others. 07:32 Method Of Arrival: Ambulatory ss 07:32 Acuity: LUIZ 3 ss Triage Assessment: 07:25 General: Appears in no apparent distress. uncomfortable, Behavior is calm, cooperative. rs5 Pain: Complains of pain in chest. 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 - Infectious Disease History:: Denies. - Social history:: Smoking status: Patient denies any tobacco usage or history of. - Family history:: not pertinent. - Hospitalizations: : No recent hospitalization is reported. Screenin:25 [facility] ED Fall Risk Assessment (Adult) History of falling in the last 3 months, rs5 including since admission No falls in past 3 months (0 pts) Confusion or Disorientation No (0 pts) Intoxicated or Sedated No (0 pts) Impaired Gait No (0 pts) Mobility Assist Device Used No (0 pt) Altered Elimination No (0 pt) Score/Fall Risk Level 0 - 2 = Low Risk Oriented to surroundings, Maintained a safe environment. 07:25 Abuse screen: Denies threats or abuse. Nutritional screening: No deficits noted. rs5 Tuberculosis screening: No symptoms or risk factors identified. Assessment: 07:25 General: Appears in no apparent distress. uncomfortable, Behavior is calm, cooperative. rs5 Pain: Complains of pain in right sided chest pain Pain does not radiate. Pain currently is 6 out of 10 on a pain scale. Quality of pain is described as aching, Pain began Is continuous. Neuro: Level of Consciousness is awake, alert, obeys commands, Oriented to person, place, time, situation. Cardiovascular: Patient's skin is warm and dry. 07:25 Respiratory: Airway is patent Respiratory effort is even, unlabored, Respiratory rs5 pattern is regular, symmetrical. Respiratory: Reports shortness of breath. GI: Abdomen is round non-distended, Abd is soft and non tender X 4 quads. : No signs and/or symptoms were reported regarding the genitourinary system. EENT: No signs and/or symptoms were reported regarding the EENT system. Derm: Skin is intact, Skin is pink, warm \\T\\ dry. Musculoskeletal: Range of motion: intact in all extremities. 08:33 Reassessment: Patient and/or family updated on plan of care and expected duration. Pain rs5 level reassessed. Patient is alert, oriented x 3, equal unlabored respirations, skin warm/dry/pink. 09:15 Reassessment: Patient and/or family updated on plan of care and expected duration. Pain rs5 level reassessed. Patient is alert, oriented x 3, equal unlabored respirations, skin warm/dry/pink. Vital Signs: 07:32 BP 119 / 87; Pulse 89; Resp 16; Temp 97.8(O); Pulse Ox 98% on R/A; Weight 86.18 kg; ss Height 4 ft. 11 in. ; Pain 6/10; 08:22 BP 122 / 84; Pulse 80; Resp 17; Pulse Ox 98% on R/A; rs5 09:35 BP 129 / 77; Pulse 77; Resp 17; Pulse Ox 99% ; rs5 07:32 Body Mass Index 38.37 (86.18 kg, 149.86 cm) ss 07:32 Pain Scale: Adult ss ED Course: 07:23 Patient arrived in ED. sj2 07:23 Steven Arita MD is Attending Physician. rn 07:23 Hever Alas RN is Primary Nurse. rs5 07:25 Patient has correct armband on for positive identification. Placed in gown. Bed in low rs5 position. Call light in reach. Side rails up X2. Client placed on continuous cardiac and pulse oximetry monitoring. NIBP monitoring applied. clinical research monitor on. Pulse ox on. 07:25 No provider procedures requiring assistance completed. Patient maintains SpO2 rs5 saturation greater than 95% on room air. 07:28 Inserted saline lock: 20 gauge in right antecubital area, using aseptic technique. rs5 Blood collected. Flushed with 10 mL NS. 07:33 Triage completed. ss 07:33 Arm band placed on right wrist. ss 07:56 XRAY Chest (1 view) In Process Unspecified. EDMS 09:22 Provided Education on: discharge instructions . rs5 09:22 IV discontinued, intact, bleeding controlled, No redness/swelling at site. Pressure rs5 dressing applied. Administered Medications: 07:40 Drug: Famotidine IVP 20 mg IVP once; dilute with 10 mL 0.9% NaCl; give over 2 minutes rs5 Route: IVP; Site: right antecubital; 08:01 Follow up: Response: No adverse reaction rs5 07:40 Drug: Ondansetron IVP 4 mg IVP once; over 2 minutes Route: IVP; Site: right antecubital;rs5 08:01 Follow up: Response: No adverse reaction; Nausea is decreased rs5 08:01 Drug: MethylPrednisoLONE IVP 125 mg IVP once Route: IVP; Site: right antecubital; rs5 08:15 Follow up: Response: No adverse reaction rs5 08:01 Drug: Levalbuterol Inhalation 1.25 mg Inhalation once Route: Inhalation; rs5 08:20 Follow up: Response: No adverse reaction rs5 08:01 Drug: Levalbuterol Inhalation 1.25 mg Inhalation once Route: Inhalation; rs5 08:20 Follow up: Response: No adverse reaction rs5 09:14 Drug: Ketorolac IVP 15 mg IVP once Route: IVP; Site: right antecubital; rs5 09:33 Follow up: Response: No adverse reaction; Pain is decreased rs5 Medication: 07:40 VIS not applicable for this client. rs5 Outcome: : Discharge ordered by . rn 09:22 Discharged to home ambulatory, rs5 09:22 Condition: stable rs5 09:22 Discharge instructions given to patient, family, Instructed on discharge instructions, follow up and referral plans. medication usage, Demonstrated understanding of instructions, follow-up care, medications, Prescriptions given X 1, :24 Patient left the ED. rs5 Signatures: Dispatcher [employer] EDMS Steven Arita MD MD rn Blanchard, Shelby, RN RN ss Sotelo, Ricky, RN RN rs5 Myke Erazo 2
--- NOTE | 2024-10-12 09:09 | EDPHYS ---
Physician Documentation [facility] Name: Adelaide Larson Age: 24 yrs Sex: Female : 2000 Arrival Date: 10/12/2024 Time: 07:20 Bed 16 Private MD: ED Physician Steven Arita HPI: 10/12 07:33 This 24 yrs old Female presents to ER via Unassigned with complaints of Chest Pain. rn 07:33 The patient or guardian reports chest pain that is located primarily in the anterior rn chest wall, right. The pain does not radiate. Associated signs and symptoms: Pertinent positives:. 07:39 The chest pain is described as aching. Duration: The patient or guardian reports rn multiple episodes, that are intermittent. Modifying factors: The symptoms are alleviated by nothing. the symptoms are aggravated by cough, deep breath. Severity of pain: At its worst the pain was mild in the emergency department the pain is unchanged. The patient has experienced similar episodes in the past. Patient reports right-sided anterior chest pain, worse with deep inspiration and cough. Began feeling unwell yesterday with nausea and vomiting. Reports right-sided chest pain, nonradiating, no trauma, no hemoptysis. No history of DVT or PE. No recent surgery or hospitalization. Reports mild shortness of breath. Has asthma. No sick contacts. Reports subjective fever that began yesterday.. 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 - Infectious Disease History:: Denies. - Social history:: Smoking status: Patient denies any tobacco usage or history of. - Family history:: not pertinent. - Hospitalizations: : No recent hospitalization is reported. ROS: 07:39 Constitutional: Positive for subjective fever Cardiovascular: Positive for right-sided rn chest pain, no swelling Respiratory: Positive for cough, positive for shortness of breath and wheezing. Abdomen/GI: Positive for nausea and vomiting, negative for focal abdominal pain MS/Extremity: Negative for swelling Exam: 07:39 Constitutional: This is a well developed, well nourished patient who is awake, alert, rn appears anxious Head/Face: Normocephalic, atraumatic. ENT: Moist mucous membranes, no stridor Cardiovascular: Regular rate and rhythm . No pulse deficits. Respiratory: Bilateral wheezing, no retractions, mild tachypnea present Abdomen/GI: Soft, no focal tenderness or peritoneal signs, nondistended MS/ Extremity: Equal circumference. Neuro: Awake and alert, GCS 15 07:58 ECG was reviewed by the Attending Physician. rn Vital Signs: 07:32 BP 119 / 87; Pulse 89; Resp 16; Temp 97.8(O); Pulse Ox 98% on R/A; Weight 86.18 kg; ss Height 4 ft. 11 in. ; Pain 6/10; 08:22 BP 122 / 84; Pulse 80; Resp 17; Pulse Ox 98% on R/A; rs5 09:35 BP 129 / 77; Pulse 77; Resp 17; Pulse Ox 99% ; rs5 07:32 Body Mass Index 38.37 (86.18 kg, 149.86 cm) ss 07:32 Pain Scale: Adult ss MDM: 07:23 Medical Screening Exam initiated rn 09:04 Differential diagnosis: acute pericarditis, anxiety, chest wall pain, costochondritis, rn esophagitis, gastritis, gastroesophageal reflux disease (GERD), pleurisy, pneumonia, pneumothorax, pulmonary embolus. Data reviewed: vital signs, nurses notes, lab test result(s), EKG, radiologic studies, plain films, and as a result, I will discharge patient. Independent interpretation of the following test(s) in the Emergency Department EKG: See my EKG interpretation above X-Ray: My interpretation is Chest x-ray images negative for pneumothorax or pneumonia per my interpretation. Counseling: I had a detailed discussion with the patient and/or guardian regarding the historical points, exam findings, and any diagnostic results supporting the discharge/admit diagnosis, lab results, radiology results, the need for outpatient follow up, to return to the emergency department if symptoms worsen or persist or if there are any questions or concerns that arise at home. Special discussion: Based on the patient's history, exam, and Dx evaluation, there is no indication for emergent intervention or inpatient Tx. It is understood by the patient/guardian that if the Sx's persist or worsen they need to return immediately for re-evaluation. I discussed with the patient/guardian in detail that at this point there is no indication for admission to the hospital. It is understood, however, that if the symptoms persist or worsen the patient needs to return immediately for re-evaluation. ED course: I have personally reviewed all of the results, including but not limited to blood tests and imaging deemed necessary to safely discharge this patient at this time. All results given to and printed out for patient. I personally went over all the results with the patient and answered all questions. Patient will follow-up with PCP and or specialist as discussed. Return precautions given and understood.. 10/12 07:32 Order name: CBC with Diff; Complete Time: 08:09 10/12 07:32 Order name: CMP; Complete Time: 08: rn 10/12 07:32 Order name: Lipase; Complete Time: 08: 10/12 07:32 Order name: Test, Urine; Complete Time: 08: 10/12 07:32 Order name: Urinalysis w/ reflexes; Complete Time: 08: rn 10/12 07:32 Order name: Flu; Complete Time: 08: rn 10/12 07:32 Order name: SARS RAPID; Complete Time: 08: rn 10/12 07:32 Order name: D-Dimer; Complete Time: 08: rn 10/12 07:32 Order name: XRAY Chest (1 view); Complete Time: 08:02 rn 10/12 07:32 Order name: IV Saline Lock; Complete Time: 08: rn 10/12 07:32 Order name: Labs collected and sent; Complete Time: 08: rn 10/12 07:32 Order name: EKG - Nurse/Tech; Complete Time: 07:55 rn EC:58 Rate is 84 beats/min. Rhythm is regular. QRS [place] is Normal. [place] interval is normal. QRS rn interval is normal. QT interval is normal. No Q waves. T waves are Inverted in leads V1, V2, V3. No ST changes noted. Clinical impression: NSR w/ Non-specific ST/T Changes. Interpreted by me. Reviewed by me. Administered Medications: 07:40 Drug: Famotidine IVP 20 mg IVP once; dilute with 10 mL 0.9% NaCl; give over 2 minutes rs5 Route: IVP; Site: right antecubital; 08:01 Follow up: Response: No adverse reaction rs5 07:40 Drug: Ondansetron IVP 4 mg IVP once; over 2 minutes Route: IVP; Site: right antecubital;rs5 08:01 Follow up: Response: No adverse reaction; Nausea is decreased rs5 08:01 Drug: MethylPrednisoLONE IVP 125 mg IVP once Route: IVP; Site: right antecubital; rs5 08:15 Follow up: Response: No adverse reaction rs5 08:01 Drug: Levalbuterol Inhalation 1.25 mg Inhalation once Route: Inhalation; rs5 08:20 Follow up: Response: No adverse reaction rs5 08:01 Drug: Levalbuterol Inhalation 1.25 mg Inhalation once Route: Inhalation; rs5 08:20 Follow up: Response: No adverse reaction rs5 09:14 Drug: Ketorolac IVP 15 mg IVP once Route: IVP; Site: right antecubital; rs5 09:33 Follow up: Response: No adverse reaction; Pain is decreased rs5 Disposition Summary: 10/12/24 09:09 Discharge Ordered Notes: Location: Home rn Problem: new rn Symptoms: have improved rn Condition: Stable rn Diagnosis - Chest pain, unspecified rn Followup: rn - With: Private Physician - When: As needed - Reason: Recheck today's complaints, Re-evaluation by your physician Discharge Instructions: - Discharge Summary Sheet rn - Asthma, Adult rn - Nonspecific Chest Pain, Adult rn Forms: - Medication Reconciliation Form rn - Antibiotic pattern hanger - Prescription Opioid Use rn - Patient Portal Instructions rn - Leadership Thank You Letter rn Prescriptions: - Prednisone 20 mg Oral Tablet - take 3 tablets ORAL route once daily for 5 days; 15 tablet; Refills: 0, Product rn Selection Permitted Signatures: Dispatcher [employer] EDMS Steven Arita MD MD rn Blanchard, Shelby, RN RN ss Sotelo, Ricky, RN RN rs5 Corrections: (The following items were deleted from the chart) 07:33 07:32 CBC+H.LAB.BRZ ordered. EDMS EDMS 07:33 07:32 COMPREHENSIVE METABOLIC PANEL+C.LAB.BRZ ordered. EDMS EDMS 07:33 07:33 LIPASE+C.LAB.BRZ ordered. EDMS EDMS 07:33 07:33 Test, Urine+UC.LAB.BRZ ordered. EDMS EDMS 07:33 07:33 Urinalysis+U.LAB.BRZ ordered. EDMS EDMS 07:33 07:33 Influenza Screen (A \T\ B)+BA.LAB.BRZ ordered. EDMS EDMS 07:33 07:33 SARS-COV-2 Antigen Rapid+I.LAB.BRZ ordered. EDMS EDMS 07:33 07:33 D-DIMER+COAG.LAB.BRZ ordered. EDMS EDMS 07:33 07:33 Chest Single View+RAD.RAD.BRZ ordered. EDMS EDMS
[2024-10-12] MEDS ORDERED: KETOROLAC 30 MG/ML INJ ONE (09:10)
[2024-10-12 09:28] VITALS: BP 119/87; TEMP 97.8; O2SAT 98
--- NOTE | 2024-10-13 12:01 | EKG ---
Test Date: 2024-10-12 Test Time: 07:33:31 Office Machine Embossograph Operator: ROSY MEASUREMENT RESULTS: Intervals: Rate: 84 MN: 140 QRSD: 74 QT: 346 QTc: 408 [place]: P: 33 MN: 140 QRS: 73 T: 17 INTERPRETIVE STATEMENTS: Normal sinus rhythm Nonspecific T wave abnormality Abnormal ECG Compared to ECG 12/07/2023 03:57:40 Sinus arrhythmia no longer present Right-axis deviation no longer present Possible ischemia no longer present T-wave abnormality still present Electronically Signed On 10-13-24 12:00:20 RADIO TECHNICIAN by Paul Rodriguez
== END 2024-10-12 09:24 | disposition home or self-care (01) ==
LOC: ER 07:20
DX: R07.89 Other chest pain (principal); F41.9 Anxiety disorder, unspecified; Z11.52 Encounter for screening for COVID-19
CPT/HCPCS: 93005; 85025; 81001; 36415; 81025; 85379; 83690; 80053; 87804 ×2; 71045; 96375; 96374; 99285; 87811; J7614; J2919; J2405

== ENCOUNTER 2024-10-12 21:14 | Emergency (ER) | payer BC ==
[2024-10-12] MEDS ORDERED: NA CHLORIDE 0.9% 1,000 ML ONE (22:51)
[2024-10-12] MEDS ORDERED: MORPHINE 4 MG/ML SYR ONE (22:51)
[2024-10-12] MEDS ORDERED: ONDANSETRON 4 MG/2 ML VIAL ONE (22:51)
--- NOTE | 2024-10-12 23:08 | RAD REPORT ---
EXAMINATION: CT Abdomen Pelvis W Contrast CLINICAL INDICATION: Female, 24 years old. FLANK PAIN TECHNIQUE: CT abdomen and pelvis was performed, after the administration of IV contrast, as per [facility] protocol. Axial, sagittal and coronal reconstructions were obtained. One or more of the following dose reduction techniques were used: Automated exposure control, adjustment of the mA and k V according to patient size, and iterative reconstruction. Unless otherwise specified, incidental findings do not require dedicated imaging follow-up. COMPARISON: 06/27/2024 FINDINGS: LOWER CHEST: The visualized lung bases are clear. LIVER: Normal in size and contour. No focal lesion. BILIARY SYSTEM: Status post cholecystectomy. SPLEEN: Normal size. No focal lesion. PANCREAS: No mass, ductal dilation, or néstor-pancreatic fluid. ADRENALS: Normal; no mass. KIDNEYS: Normal size and contour. No hydronephrosis. URINARY BLADDER: Unremarkable. GASTROINTESTINAL TRACT: Mildly prominent short segment of small bowel with air-fluid level in the ant erior lower abdomen, nonspecific. No evidence of free air, significant intra-abdominal free fluid, bowel obstruction or abscess. APPENDIX: Appendix surgically absent. LYMPH NODES: No lymphadenopathy. MUSCULOSKELETAL: No acute or suspicious osseous abnormality. ADDITIONAL FINDINGS: None. IMPRESSION: Short segment of small bowel in the lower abdomen, mildly prominent, may relate to mild enteritis. No other acute intra-abdominal process.
[2024-10-12 23:16] LABS: Specific Gravity 1.015 (1.005-1.030)
[2024-10-12 23:17] LABS: Specific Gravity 1.015 (1.005-1.030); Sqamous Epithelial <5 /HPF (None Seen); Urine Bacteria <20 /HPF (<20); Urine Bilirubin NEGATIVE (Negative); Urine Blood Negative (Negative); Urine Clarity Clear (Clear); Urine Color Light-Yellow (Yellow); Urine Culture Reflex Order NOT NEEDED; Urine Glucose 1+ (Negative); Urine Ketones TRACE (Negative); Urine Micro Reflex YN NO BILL MICROSCOPIC; Urine Mucus Slight /HPF (None Seen); Urine Nitrite NEGATIVE (Negative); Urine Protein NEGATIVE (Negative); Urine RBC None Seen /HPF (None Seen); Urine Urobilinogen Normal (Normal); Urine WBC <5 /HPF (<5)
[2024-10-12 23:22] LABS: Absolute Lymphocytes (CBC) 0.3 K/uL (0.7-4.9); Absolute Monocytes 0.2 K/uL (0.1-1.3); Absolute Neutrophil 6.6 K/uL (1.8-8.0); Basophils % 0.3 % (0-1.3); Hematocrit 35.4 % (36.0-45.0); Hemoglobin 11.6 g/dL (12.0-15.0); Lymphocytes % 4.2 % (15.3-44.8); MCH 28.2 pg (27.0-35.0); MCHC 32.8 g/dL (32.0-36.0); MCV 85.9 fL (80-100); Neutrophils % 92.5 % (41.7-73.7); Platelets 241 thou/uL (152-406); RBC Red Blood Cell Count 4.12 M/uL (3.86-4.86); Red Cell Distribution Width 16.3 % (12.1-15.2)
[2024-10-12 23:25] LABS: ALT/SGPT 26 U/L (13-56); Albumin 3.4 g/dL (3.4-5.0); Alkaline Phosphatase 54 U/L (45-117); BUN Blood Urea Nitrogen 9 mg/dL (7-18); Bicarbonate 21 mEq/L (21-32); Bilirubin Total 0.3 mg/dL (0.2-1.0); Globulin 3.4 g/dL (2.3-3.5); Glomerular Filtration Rate 83 ml/min (=/>90); Glucose Level 113 mg/dL (74-106); Protein, Total 6.8 g/dL (6.4-8.2); Sodium Level 138 mEq/L (136-145)
[2024-10-12 23:37] LABS: AST/SGOT < 10 U/L (15-37)
[2024-10-13 00:35] LABS: Band Neutrophils 8 % (0-1); Blood Morphology Comment NOT SEEN (NOT SEEN); Differential Total Cells Count 100; Lymphocytes 8 % (15-42); Monocytes 3 % (0-10); Platelet Estimate ADEQ; Reactive Lymphocytes 3 %; Segmented Neutrophils 78 % (40-80)
[2024-10-13] MEDS ORDERED: KETOROLAC 30 MG/ML INJ ONE (00:45)
--- NOTE | 2024-10-13 00:52 | EDPHYS ---
Physician Documentation [facility] Name: Adelaide Larson Age: 24 yrs Sex: Female : 2000 Arrival Date: 10/12/2024 Time: 21:14 Bed 13 Private MD: ED Physician Jameel Jaime HPI: 10/13 00:12 This 24 yrs old Female presents to ER via Ambulatory with complaints of Low Back Pain, sb4 Urinary Problem. 00:12 patient reports feeling poorly for the past few days- nausea, vomiting, abdominal pain, sb4 back pain. states she came in earlier today for chest pain, had a negative workup, and was discharged. started feeling poorly after, went to urgent care, was told she had a UTI and possibly a kidney infection and to go to the ED. HANGER OFF: 10/12 23:26 LMP N/A - Irregular menses, Not me1 Historical: - Allergies: 21:44 Bactrim; cm10 21:44 Zithromax; cm10 21:44 Zosyn in dextrose (iso-osm); cm10 - PMHx: 21:44 Anxiety; Asthma; Depression; HYPOGLYCEMIA; Hypothyroidism; scoliosis; cm10 - PSHx: 21:44 Appendectomy; Cholecystectomy; Hip surgery; cm10 - Immunization history:: Adult Immunizations up to date. - Infectious Disease History:: Denies. - Social history:: Smoking status: Patient denies any tobacco usage or history of. ROS: 10/13 00:12 Respiratory: Negative for shortness of breath, cough, wheezing, and pleuritic chest sb4 pain, Constitutional: Positive for malaise, Abdomen/GI: Positive for abdominal pain, nausea, vomiting, and diarrhea, Back: Positive for flank pain, on the left, : Positive for small amounts, All other systems are negative, Exam: 00:12 Head/Face: Normocephalic, atraumatic. Eyes: Extra-ocular motions intact. Periorbital sb4 areas with no swelling, redness, or edema. ENT: Mucous membranes moist. Respiratory: No increased work of breathing, no retractions or nasal flaring. Abdomen/GI: Soft, non-tender, no distension. Back: No spinal tenderness. No costovertebral tenderness. Full range of motion. Skin: Warm, dry with normal turgor. Normal color with no rashes, no lesions, and no evidence of cellulitis. 00:12 Constitutional: The patient appears alert, awake, anxious, uncomfortable, tearful 00:12 Cardiovascular: Rate: tachycardic, Rhythm: regular, Vital Signs: 10/12 21:42 BP 147 / 88; Pulse 125; Resp 18; Temp 98.8(O); Pulse Ox 98% on R/A; Weight 86.18 kg; cm10 Height 4 ft. 11 in. ; Pain 10/; 22:00 BP 97 / 55; Pulse 88; Resp 16; Pulse Ox 95% ; me1 23:00 BP 98 / 61; Pulse 90; Resp 16; Pulse Ox 98% ; me1 10/13 01:06 BP 114 / 71; Pulse 74; Resp 16; Pulse Ox 98% on R/A; jb4 10/12 21:42 Body Mass Index 38.37 (86.18 kg, 149.86 cm) cm10 10/12 21:42 Pain Scale: Adult cm10 MDM: 10/12 21:37 Medical Screening Exam initiated sb4 10/13 00:12 Data reviewed: vital signs, nurses notes, lab test result(s), radiologic studies, and sb4 as a result, I will discharge patient. Counseling: I had a detailed discussion with the patient and/or guardian regarding the historical points, exam findings, and any diagnostic results supporting the discharge/admit diagnosis, lab results, radiology results, to return to the emergency department if symptoms worsen or persist or if there are any questions or concerns that arise at home. 10/12 21:18 Order name: UAM; Complete Time: 23:25 sb4 10/12 21:18 Order name: Test, Urine; Complete Time: 23:25 sb4 10/12 21:44 Order name: CBC with Diff; Complete Time: 00:38 sb4 10/12 21:44 Order name: CMP; Complete Time: 23:38 sb4 10/12 23:38 Order name: Manual Differential; Complete Time: 00:38 EDMS 10/12 21:44 Order name: CT Abd/Pelvis - IV Contrast Only; Complete Time: 23:12 sb4 10/12 21:44 Order name: IV Saline Lock; Complete Time: 22:59 sb4 10/12 21:44 Order name: Labs collected and sent; Complete Time: 22:55 sb4 10/13 00:07 Order name: PO challenge; Complete Time: 00:38 sb4 Administered Medications: 10/12 22:56 Drug: Ondansetron IVP 4 mg IVP once; over 2 minutes Route: IVP; Site: right antecubital;me1 22:59 Follow up: Response: No adverse reaction; Nausea is decreased me1 22:56 Drug: NS 0.9% IV 1000 ml IV at 1 bolus Per protocol; to be given as a bolus over 60 me1 minutes Route: IV; Rate: 1 bolus; Site: right antecubital; 22:59 Drug: morphine IVP or IV 4 mg IVP once over 4 mins Route: IVP; Infused Over: 4 mins; me1 Site: right antecubital; 23:00 Follow up: Response: No adverse reaction; Pain is decreased me1 10/13 00:52 Drug: Ketorolac IVP 15 mg IVP once Route: IVP; Site: right antecubital; jb4 Disposition: 05:24 Co-signature as Attending Physician, Jameel Jaime MD I agree with the assessment sp4 and plan of care. I reviewed the patient's care provided by the Advanced Practice Provider and agree with the diagnosis and treatment plan. Disposition Summary: 10/13/24 00:52 Discharge Ordered Notes: Location: Home sb4 Problem: new sb4 Symptoms: have improved sb4 Condition: Stable sb4 Diagnosis - Other viral enteritis sb4 Followup: sb4 - With: Emergency Department - When: As needed - Reason: Trouble breathing, Worsening of condition Discharge Instructions: - Discharge Summary Sheet sb4 - Viral Gastroenteritis, Adult, [id number] sb4 Forms: - Patient Portal Instructions sb4 - Leadership Thank You Letter sb4 Prescriptions: - ondansetron HCl 4 mg Oral tablet - take 1 tablet ORAL route every 4-6 hours As needed; 10 tablet; Refills: 0, sb4 Product Selection Permitted Signatures: Dispatcher [employer] Lauri Panda RN RN jb4 Mona Zabala PA-C PA-C sb4 Jameel Jaime MD MD sp4 Winifred Mariscal RN RN cm10 Nara Pan RN RN me1 Corrections: (The following items were deleted from the chart) 12/16 21:45 21:45 CBC+H.LAB.BRZ ordered. EDMS EDMS 21:45 COMPREHENSIVE METABOLIC PANEL+C.LAB.BRZ ordered. EDMS EDMS
--- NOTE | 2024-10-13 00:52 | ER ---
Nurse's Notes [facility] Name: Adelaide Larson Age: 24 yrs Sex: Female : 2000 Arrival Date: 10/12/2024 Time: 21:14 Bed 13 Private MD: Diagnosis: Other viral enteritis Presentation: 10/12 21:42 Chief complaint: Patient states: low back pain onset today. pt also reports nausea and cm10 vomiting. pt was sent to the ER by urgent care. pt diagnosed with a UTI today,. Coronavirus screen: Client denies travel out of the [place] in the last 14 days. Ebola Screen: Patient denies travel to an Ebola-affected area in the 21 days before illness onset. Initial Sepsis Screen: Does the patient meet any 2 criteria? HR > 90 bpm. Does the patient have a suspected source of infection? No. Patient's initial sepsis screen is negative. Risk Assessment: Do you want to hurt yourself or someone else? Patient reports no desire to harm self or others. Onset of symptoms was October 12, 2024. 21:42 Method Of Arrival: Ambulatory cm10 21:42 Acuity: LUIZ 3 cm10 Triage Assessment: 21:45 General: Appears in no apparent distress. uncomfortable, Behavior is cooperative, cm10 crying. Neuro: No deficits noted. Level of Consciousness is awake, alert, obeys commands, Oriented to person, place, time, situation, Appropriate for age. Respiratory: No deficits noted. Airway is patent Respiratory effort is even, unlabored, Respiratory pattern is regular, symmetrical. SNAGGER: 23:26 LMP N/A - Irregular menses, Not me1 Historical: - Allergies: 21:44 Bactrim; cm10 21:44 Zithromax; cm10 21:44 Zosyn in dextrose (iso-osm); cm10 - PMHx: 21:44 Anxiety; Asthma; Depression; HYPOGLYCEMIA; Hypothyroidism; scoliosis; cm10 - PSHx: 21:44 Appendectomy; Cholecystectomy; Hip surgery; cm10 - Immunization history:: Adult Immunizations up to date. - Infectious Disease History:: Denies. - Social history:: Smoking status: Patient denies any tobacco usage or history of. Screenin:00 [facility] ED Fall Risk Assessment (Adult) History of falling in the last 3 months, me1 including since admission No falls in past 3 months (0 pts) Confusion or Disorientation No (0 pts) Intoxicated or Sedated No (0 pts) Impaired Gait No (0 pts) Mobility Assist Device Used No (0 pt) Altered Elimination No (0 pt) Score/Fall Risk Level 0 - 2 = Low Risk Oriented to surroundings, Provided non-skid footwear, Hourly rounding (assess needs \T\ fall precautionary measures) done. Abuse screen: Denies threats or abuse. Nutritional screening: No deficits noted. Tuberculosis screening: No symptoms or risk factors identified. Assessment: 23:00 General: Appears uncomfortable, well groomed, well developed, well nourished, Behavior me1 is calm, cooperative, appropriate for age, Reports low back pain onset today. pt also reports nausea and vomiting. pt was sent to the ER by urgent care. pt diagnosed with a UTI today,. 23:00 Pain: Complains of pain in left low back and right low back Pain does not radiate. Pain me1 currently is 8 out of 10 on a pain scale. Quality of pain is described as crampy, sharp, Pain began gradually, Is continuous. Neuro: Level of Consciousness is awake, alert, obeys commands, Oriented to person, place, time, situation, Appropriate for age. Cardiovascular: Patient's skin is warm and dry. Respiratory: Airway is patent Respiratory effort is even, unlabored, Respiratory pattern is regular, symmetrical. GI: Reports nausea, vomiting, since today. : Reports urgency, urinary frequency. : Reports pain in bilateral in lower back. EENT: No signs and/or symptoms were reported regarding the EENT system. Derm: Skin is intact, is healthy with good turgor, Skin is pink, warm \T\ dry. Musculoskeletal: No signs and/or symptoms reported regarding the musculoskeletal system. 10/13 01:06 Reassessment: Patient appears in no apparent distress at this time. Patient and/or jb4 family updated on plan of care and expected duration. Pain level reassessed. Patient is alert, oriented x 3, equal unlabored respirations, skin warm/dry/pink. Patient states feeling better. Vital Signs: 10/12 21:42 BP 147 / 88; Pulse 125; Resp 18; Temp 98.8(O); Pulse Ox 98% on R/A; Weight 86.18 kg; cm10 Height 4 ft. 11 in. ; Pain 10/; 22:00 BP 97 / 55; Pulse 88; Resp 16; Pulse Ox 95% ; me1 23:00 BP 98 / 61; Pulse 90; Resp 16; Pulse Ox 98% ; me1 10/13 01:06 BP 114 / 71; Pulse 74; Resp 16; Pulse Ox 98% on R/A; jb4 10/12 21:42 Body Mass Index 38.37 (86.18 kg, 149.86 cm) cm10 10/12 21:42 Pain Scale: Adult cm10 ED Course: 10/12 21:16 Patient arrived in ED. im 21:17 Mona Zabala PA-C is PHCP. sb4 21:17 Jameel Jaime MD is Attending Physician. sb4 21:44 Triage completed. cm10 21:45 Arm band placed on right wrist. Patient placed in waiting room. cm10 22:25 CT Abd/Pelvis - IV Contrast Only In Process Unspecified. EDMS 22:47 Nara Pan, JAZ is Primary Nurse. me1 22:55 CMP Sent. oe 22:55 CBC with Diff Sent. oe 23:00 Patient has correct armband on for positive identification. Bed in low position. Call me1 light in reach. Side rails up X2. Provided Education on: POC. Verbalized understanding.. Client placed on continuous cardiac and pulse oximetry monitoring. NIBP monitoring applied. Pulse ox on. NIBP on. 23:00 No provider procedures requiring assistance completed. me1 10/13 01:06 IV discontinued, intact, bleeding controlled, No redness/swelling at site. Pressure jb4 dressing applied. Administered Medications: 10/12 22:56 Drug: Ondansetron IVP 4 mg IVP once; over 2 minutes Route: IVP; Site: right antecubital;me1 22:59 Follow up: Response: No adverse reaction; Nausea is decreased me1 22:56 Drug: NS 0.9% IV 1000 ml IV at 1 bolus Per protocol; to be given as a bolus over 60 me1 minutes Route: IV; Rate: 1 bolus; Site: right antecubital; 22:59 Drug: morphine IVP or IV 4 mg IVP once over 4 mins Route: IVP; Infused Over: 4 mins; me1 Site: right antecubital; 23:00 Follow up: Response: No adverse reaction; Pain is decreased me1 10/13 00:52 Drug: Ketorolac IVP 15 mg IVP once Route: IVP; Site: right antecubital; jb4 Medication: 10/12 23:00 VIS not applicable for this client. me1 Outcome: 10/13 00:52 Discharge ordered by MD. sb4 01:06 Discharged to home ambulatory, jb4 01:06 Condition: stable 01:06 Discharge instructions given to patient, Instructed on discharge instructions, follow up and referral plans. medication usage, Demonstrated understanding of instructions, follow-up care, medications, Prescriptions given X 1, 01:07 Patient left the ED. jb4 Signatures: Dispatcher [employer] EDMS Lauri Okeefe, RN RN jb4 Johann Chen Sophia, PA-C PA-C sb4 Char Greenwood Clarissa, RN RN cm10 Nara Pan RN RN me1 Corrections: (The following items were deleted from the chart) 10/12 23:00 21:42 Chief complaint: Patient states: low back pain onset today. pt also reports me1 nausea and vomiting. pt was sent to the ER by urgent care. pt diagnosed with a UTI today,. cm10 23:04 23:00 General: Appears me1 me1
[2024-10-13 01:29] VITALS: TEMP 98.8; O2SAT 98
[2024-10-13 01:32] VITALS: BP 114/71
== END 2024-10-13 01:07 | disposition home or self-care (01) ==
LOC: ER 21:14
DX: A08.39 Other viral enteritis (principal)
CPT/HCPCS: 85025; 81001; 36415; 81025; 80053; 74177; 96375; 96374; 99284; Q9967; J2405; J7030

== ENCOUNTER 2024-11-09 17:41 | Emergency (ER) | payer BC ==
[2024-11-09] MEDS ORDERED: KETOROLAC 30 MG/ML INJ ONE (20:11)
[2024-11-09] MEDS ORDERED: NA CHLORIDE 0.9% 1,000 ML ONE (20:11)
[2024-11-09] MEDS ORDERED: ONDANSETRON 4 MG/2 ML VIAL ONE (20:11)
[2024-11-09 20:12] LABS: Absolute Basophils 0.1 K/uL (0-0.5); Absolute Eosinophils 0.2 K/uL (0-0.5); Absolute Lymphocytes (CBC) 1.1 K/uL (0.7-4.9); Absolute Monocytes 0.5 K/uL (0.1-1.3); Absolute Neutrophil 4.2 K/uL (1.8-8.0); Basophils % 0.9 % (0-1.3); Hematocrit 36.6 % (36.0-45.0); Hemoglobin 12.1 g/dL (12.0-15.0); Lymphocytes % 17.7 % (15.3-44.8); MCH 28.4 pg (27.0-35.0); MCHC 33.1 g/dL (32.0-36.0); MCV 85.8 fL (80-100); Monocytes % 7.8 % (3.3-12.3); Neutrophils % 69.6 % (41.7-73.7); Nucleated Red Blood Cells % 0.1 % (0-0); Platelets 235 thou/uL (152-406); RBC Red Blood Cell Count 4.27 M/uL (3.86-4.86); Red Cell Distribution Width 16.2 % (12.1-15.2)
[2024-11-09 20:19] LABS: Specific Gravity 1.017 (1.005-1.030)
[2024-11-09 20:35] LABS: Albumin 3.4 g/dL (3.4-5.0); Anion Gap 7.7 mEq/L (5.0-15.0); Bilirubin Total 0.3 mg/dL (0.2-1.0); Globulin 3.3 g/dL (2.3-3.5); Potassium 3.7 mEq/L (3.5-5.1); Protein, Total 6.7 g/dL (6.4-8.2)
[2024-11-09 20:53] LABS: Specific Gravity 1.017 (1.005-1.030); Sqamous Epithelial <5 /HPF (None Seen); Urine Bacteria None Seen /HPF (<20); Urine Bilirubin NEGATIVE (Negative); Urine Blood Negative (Negative); Urine Clarity Turbid (Clear); Urine Color Light-Yellow (Yellow); Urine Culture Reflex Order NOT NEEDED; Urine Glucose NEGATIVE (Negative); Urine Ketones NEGATIVE (Negative); Urine Microscopic Reflex YN ORDER UMIC; Urine Mucus Slight /HPF (None Seen); Urine Nitrite NEGATIVE (Negative); Urine Protein NEGATIVE (Negative); Urine RBC <5 /HPF (None Seen); Urine Urobilinogen Normal (Normal); Urine WBC <5 /HPF (<5); Urine Yeast (Budding) Trace /HPF (None Seen)
--- NOTE | 2024-11-09 21:46 | RAD REPORT ---
EXAMINATION: CT Stone Protocol CLINICAL INDICATION: Female, 24 years old. FLANK PAIN TECHNIQUE: CT abdomen and pelvis was performed, without IV contrast, as per department protocol. Axia l, sagittal and coronal reconstructions were obtained. One or more of the following dose reduction techniques were used: Automated exposure control, adjustment of the mA and kV according to the patien t size, and iterative reconstruction. Unless otherwise specified, incidental findings do not require dedicated imaging follow-up. COMPARISON: 10/12/2024 FINDINGS: The lack of intravenous contrast limits the sensitivity of this exam for evaluation of solid visceral organs, vascular structures, and retroperitoneum. LOWER CHEST: The visualized lung bases are clear. LIVER: Normal in size and contour. No focal lesion. BILIARY SYSTEM: Status post cholecystectomy. SPLEEN: Normal size. No focal lesion. PANCREAS: No mass, ductal dilation, or néstor-pancreatic fluid. ADRENALS: Normal; no mass. KIDNEYS AND URETERS: Normal size and contour. No hydronephrosis. Punctate nonobstructing bilateral re nal calculi not exceeding 1-2 mm. URINARY BLADDER: Suboptimally distended limiting evaluation.. GASTROINTESTINAL TRACT: No evidence of bowel obstruction, significant free fluid, free air or abscess . APPENDIX: Normal appendicectomy appendix. LYMPH NODES: No lymphadenopathy. MUSCULOSKELETAL: No acute or suspicious osseous abnormality. ADDITIONAL FINDINGS: None. IMPRESSION: Bilateral tiny nonobstructing renal calculi not exceeding 1-2 mm. No other acute or concerning abnormalities in the abdomen or pelvis, with evaluation limited by lack of IV contrast.
[2024-11-09] MEDS ORDERED: HYDROCODONE/APAP 7.5/325 MG TAB ONE (22:35)
--- NOTE | 2024-11-09 22:37 | ER ---
Nurse's Notes [facility] Name: Adelaide Larson Age: 24 yrs Sex: Female : 2000 Arrival Date: 11/09/2024 Time: 17:41 Bed 12 Private MD: Diagnosis: Flank pain Presentation: 11/09 17:56 Chief complaint: Patient states: Left flank pain that radiates to LLQ abdominal pain. cm10 Pt reports urinary frequency. Coronavirus screen: Client denies travel out of the [place] in the last 14 days. Ebola Screen: Patient denies travel to an Ebola-affected area in the 21 days before illness onset. No symptoms or risks identified at this time. Initial Sepsis Screen: Does the patient meet any 2 criteria? HR > 90 bpm. Does the patient have a suspected source of infection? No. Patient's initial sepsis screen is negative. Risk Assessment: Do you want to hurt yourself or someone else? Patient reports no desire to harm self or others. Onset of symptoms was November 06, 2024. 17:56 Method Of Arrival: Ambulatory cm10 17:56 Acuity: LUIZ 3 cm10 Triage Assessment: 17:58 General: Appears in no apparent distress. uncomfortable, Behavior is calm, cooperative. cm10 Neuro: No deficits noted. Level of Consciousness is awake, alert, obeys commands, Oriented to person, place, time, situation, Appropriate for age. Respiratory: No deficits noted. Airway is patent Respiratory effort is even, unlabored, Respiratory pattern is regular, symmetrical. Historical: - Allergies: 17:58 Bactrim; cm10 17:58 Zithromax; cm10 17:58 Zosyn in dextrose (iso-osm); cm10 - PMHx: 17:58 Anxiety; Asthma; Depression; HYPOGLYCEMIA; Hypothyroidism; scoliosis; cm10 - PSHx: 17:58 Appendectomy; Cholecystectomy; Hip surgery; cm10 - Immunization history:: Adult Immunizations up to date. - Infectious Disease History:: Denies. - Social history:: Smoking status: Patient denies any tobacco usage or history of. Screenin:54 [facility] ED Fall Risk Assessment (Adult) History of falling in the last 3 months, jb4 including since admission No falls in past 3 months (0 pts) Confusion or Disorientation No (0 pts) Intoxicated or Sedated No (0 pts) Impaired Gait No (0 pts) Mobility Assist Device Used No (0 pt) Altered Elimination No (0 pt) Score/Fall Risk Level 0 - 2 = Low Risk Oriented to surroundings, Maintained a safe environment. Abuse screen: Denies threats or abuse. Nutritional screening: No deficits noted. Tuberculosis screening: No symptoms or risk factors identified. Assessment: 19:30 General: Appears in no apparent distress. comfortable, Behavior is calm, cooperative, jb4 appropriate for age. Pain: Complains of pain in left low back Pain radiates to left lower quadrant Pain currently is 10 out of 10 on a pain scale. Neuro: Level of Consciousness is awake, alert, obeys commands, Oriented to person, place, time, situation. Cardiovascular: Patient's skin is warm and dry. Respiratory: Airway is patent Respiratory effort is even, unlabored, Respiratory pattern is regular, symmetrical. Derm: Skin is intact, Skin is pink, warm \T\ dry. Musculoskeletal: Circulation, motion, and sensation intact. Range of motion: intact in all extremities. 21:00 Reassessment: Patient appears in no apparent distress at this time. Patient and/or jb4 family updated on plan of care and expected duration. Pain level reassessed. Patient is alert, oriented x 3, equal unlabored respirations, skin warm/dry/pink. Vital Signs: 17:56 BP 129 / 85; Pulse 109; Resp 18; Temp 97.9; Pulse Ox 100% on R/A; Weight 86.18 kg; cm10 Height 4 ft. 11 in. ; Pain 8/10; 22:42 BP 108 / 54; Pulse 81; Resp 16; Pulse Ox 100% ; jb4 17:56 Body Mass Index 38.37 (86.18 kg, 149.86 cm) cm10 17:56 Pain Scale: Adult cm10 ED Course: 17:44 Patient arrived in ED. ra3 17:45 Sahara Lynn [facility]C [facility] kb 17:45 Steven Arita MD is Attending Physician. kb 17:58 Triage completed. cm10 17:58 Arm band placed on right wrist. Patient placed in waiting room. cm10 20:00 Inserted saline lock: 18 gauge in right antecubital area, using aseptic technique. jb4 Blood collected. 20:04 CBC with Diff Sent. jb4 20:04 CMP Sent. jb4 20:04 Lipase Sent. jb4 20:04 Test, Urine Sent. jb4 20:04 Urinalysis w/ reflexes Sent. jb4 21:06 CT Stone Protocol In Process Unspecified. EDMS 21:06 Lauri Okeefe, RN is Primary Nurse. jb4 22:54 Patient has correct armband on for positive identification. Bed in low position. Call jb4 light in reach. Side rails up X 1. Provided Education on: discharge instructions. 22:54 No provider procedures requiring assistance completed. IV discontinued, intact, jb4 bleeding controlled, No redness/swelling at site. Pressure dressing applied. Administered Medications: 20:16 Drug: Ondansetron IVP 4 mg IVP once; over 2 minutes Route: IVP; Site: right antecubital;jb4 21:15 Follow up: Response: No adverse reaction; Marked relief of symptoms jb4 20:16 Drug: NS 0.9% IV 1000 ml IV at 1 bolus Per protocol; to be given as a bolus over 60 jb4 minutes Route: IV; Rate: 1 bolus; Site: right antecubital; 21:16 Follow up: Response: No adverse reaction; IV Status: Completed infusion; IV Intake: jb4 1000ml 20:17 Drug: TORadol - Ketorolac IVP 15 mg IVP once Route: IVP; Site: right antecubital; jb4 21:15 Follow up: Response: No adverse reaction jb4 22:41 Drug: Hydrocodone-Acetaminophen PO (7.5 mg-325 mg) 1 tabs PO once Route: PO; jb4 22:55 Follow up: Response: No adverse reaction jb4 Intake: 21:16 IV: 1000ml; Total: 1000ml. jb4 Outcome: 22:36 Discharge ordered by . heather 22:54 Discharged to home ambulatory, jb4 22:54 Condition: stable 22:54 Discharge instructions given to patient, Instructed on discharge instructions, follow up and referral plans. medication usage, Demonstrated understanding of instructions, follow-up care, medications, Prescriptions given X 1, 22:55 Patient left the ED. jb4 Signatures: Dispatcher [employer] EDIN Sahara Lynn, KBC KIARA-Lauri Talbot RN RN jb4 Winifred Mariscal RN RN 10 Magalie Del Rosario [facility]
--- NOTE | 2024-11-09 22:37 | EDPHYS ---
Physician Documentation [facility] Name: Adelaide Larson Age: 24 yrs Sex: Female : 2000 Arrival Date: 11/09/2024 Time: 17:41 Bed 12 Private MD: ED Physician Steven Arita HPI: 11/09 18:08 This 24 yrs old Female presents to ER via Ambulatory with complaints of Back Pain, kb Pelvic Pain. 18:08 Pt is a 24 year old female who presents for left flank pain that started 3 days ago and kb has spread to LLQ. Reports urinary frequency and noticed some difficulty urinating today. Denies fever, nausea, vomiting. Historical: - Allergies: 17:58 Bactrim; cm10 17:58 Zithromax; cm10 17:58 Zosyn in dextrose (iso-osm); cm10 - PMHx: 17:58 Anxiety; Asthma; Depression; HYPOGLYCEMIA; Hypothyroidism; scoliosis; cm10 - PSHx: 17:58 Appendectomy; Cholecystectomy; Hip surgery; cm10 - Immunization history:: Adult Immunizations up to date. - Infectious Disease History:: Denies. - Social history:: Smoking status: Patient denies any tobacco usage or history of. ROS: 18:07 Constitutional: As per HPI kb Exam: 18:07 Constitutional: This is a well developed, well nourished patient who is awake, alert, kb and in no acute distress. Head/Face: Normocephalic, atraumatic. ENT: Moist Mucous membranes Cardiovascular: Regular rate Respiratory: Respirations even and unlabored. No increased work of breathing. Talking in full sentences Skin: Warm, dry with normal turgor. Normal color. MS/ Extremity: Pulses equal, no cyanosis. Neurovascular intact. Full, normal range of motion. Neuro: Awake and alert, GCS 15, oriented to person, place, time, and situation. 18:07 Abdomen/GI: Inspection: abdomen appears normal, Bowel sounds: normal, Palpation: soft, in all quadrants, moderate abdominal tenderness, in the left upper quadrant and left lower quadrant, 18:07 Back: CVA tenderness, that is moderate, is noted on the left, Vital Signs: 17:56 BP 129 / 85; Pulse 109; Resp 18; Temp 97.9; Pulse Ox 100% on R/A; Weight 86.18 kg; cm10 Height 4 ft. 11 in. ; Pain 8/10; 22:42 BP 108 / 54; Pulse 81; Resp 16; Pulse Ox 100% ; jb4 17:56 Body Mass Index 38.37 (86.18 kg, 149.86 cm) cm10 17:56 Pain Scale: Adult cm10 MDM: 17:47 Medical Screening Exam initiated kb 22:35 Differential diagnosis: nephrolithiasis, pyelonephritis, UTI. Data reviewed: vital kb signs, nurses notes. Counseling: I had a detailed discussion with the patient and/or guardian regarding the historical points, exam findings, and any diagnostic results supporting the discharge/admit diagnosis, lab results, radiology results, the need for outpatient follow up, a family practitioner, to return to the emergency department if symptoms worsen or persist or if there are any questions or concerns that arise at home. 11/09 17:58 Order name: CBC with Diff; Complete Time: 20:15 kb 11/09 17:58 Order name: CMP; Complete Time: 20:37 kb 11/09 17:58 Order name: Lipase; Complete Time: 20:37 kb 11/09 17:58 Order name: Test, Urine; Complete Time: 20:55 kb 11/09 17:58 Order name: Urinalysis w/ reflexes; Complete Time: 20:55 kb 11/09 17:58 Order name: CT Stone Protocol; Complete Time: 21:48 kb 11/09 17:58 Order name: IV Saline Lock; Complete Time: 20:04 kb 11/09 17:58 Order name: Labs collected and sent; Complete Time: 20:04 kb Administered Medications: 20:16 Drug: Ondansetron IVP 4 mg IVP once; over 2 minutes Route: IVP; Site: right antecubital;jb4 21:15 Follow up: Response: No adverse reaction; Marked relief of symptoms jb4 20:16 Drug: NS 0.9% IV 1000 ml IV at 1 bolus Per protocol; to be given as a bolus over 60 jb4 minutes Route: IV; Rate: 1 bolus; Site: right antecubital; 21:16 Follow up: Response: No adverse reaction; IV Status: Completed infusion; IV Intake: jb4 1000ml 20:17 Drug: TORadol - Ketorolac IVP 15 mg IVP once Route: IVP; Site: right antecubital; jb4 21:15 Follow up: Response: No adverse reaction jb4 22:41 Drug: Hydrocodone-Acetaminophen PO (7.5 mg-325 mg) 1 tabs PO once Route: PO; jb4 22:55 Follow up: Response: No adverse reaction jb4 Disposition Summary: 11/09/24 22:36 Discharge Ordered Notes: Location: Home kb Condition: Stable kb Diagnosis - Flank pain kb Followup: kb - With: Emergency Department - When: As needed - Reason: Worsening of condition Followup: kb - With: Private Physician - When: 2 - 3 days - Reason: Recheck today's complaints, Continuance of care, Re-evaluation by your physician Discharge Instructions: - Discharge Summary Sheet kb - Flank Pain, Adult, [id number] kb Forms: - Medication Reconciliation Form kb - Antibiotic Education kb - Prescription Opioid Use kb - Patient Portal Instructions kb - Leadership Thank You Letter kb Prescriptions: - Diclofenac Sodium 75 mg Oral tablet, delayed release (enteric coated) - take 1 tablet ORAL route 2 times per day As needed; 30 tablet; Refills: 0, kb Product Selection Permitted Addendum: 11/13/2024 09:39 Co-signature as Attending Physician, Steven Arita MD I reviewed the patient's care r n provided by the Advanced Practice Provider and agree with the diagnosis and treatment plan. Signatures: Dispatcher [employer] Sahara Gillespie, SENIOR STORAGE ENGINEER-C SENIOR STORAGE ENGINEER-Ckb Steven Arita MD MD rn Bryson, James RN RN jb4 Winifred Mariscal RN RN cm10 Corrections: (The following items were deleted from the chart) 11/09 17:59 17:59 CBC+H.LAB.BRZ ordered. EDMS EDMS 17:59 17:59 COMPREHENSIVE METABOLIC PANEL+C.LAB.BRZ ordered. EDMS EDMS 17:59 17:59 LIPASE+C.LAB.BRZ ordered. EDMS EDMS 17:59 17:59 Test, Urine+UC.LAB.BRZ ordered. EDMS EDMS 17:59 17:59 Urinalysis+U.LAB.BRZ ordered. EDMS EDMS 17:59 17:59 Stone Protocol+CT.RAD.BRZ ordered. EDMS EDMS
[2024-11-10 17:12] VITALS: BP 108/54; TEMP 97.9; O2SAT 100
== END 2024-11-09 22:55 | disposition home or self-care (01) ==
LOC: ER 17:41
DX: R10.32 Left lower quadrant pain (principal)
CPT/HCPCS: 96361; 85025; 81001; 36415; 81025; 83690; 80053; 76377; 74176; 96375; 96374; 99284; J2405; J7030

== ENCOUNTER 2024-11-22 18:56 | Emergency (ER) | payer BC ==
[2024-11-22] MEDS ORDERED: ACETAMINOPHEN 500 MG TAB ONE (19:45)
--- NOTE | 2024-11-22 20:19 | RAD REPORT ---
EXAM: Knee Left 3 View INDICATION: PAIN COMPARISON: None FINDINGS: No acute fracture. Tiny nonspecific knee effusion. No significant focal degenerative changes. Other: n/a IMPRESSION: No evidence of acute osseous abnormality involving the imaged knee.
[2024-11-22 21:25] LABS: Specific Gravity 1.021 (1.005-1.030)
[2024-11-22 21:26] LABS: Specific Gravity 1.021 (1.005-1.030); Sqamous Epithelial <5 /HPF (None Seen); Urine Bacteria None Seen /HPF (<20); Urine Bilirubin NEGATIVE (Negative); Urine Blood 3+ (Negative); Urine Clarity Extremely Turbid (Clear); Urine Color Light-Orange (Yellow); Urine Crystals Unidentified Few /HPF (None Seen); Urine Culture Reflex Order NOT NEEDED; Urine Glucose NEGATIVE (Negative); Urine Ketones 1+ (Negative); Urine Micro Reflex YN NO BILL MICROSCOPIC; Urine Nitrite NEGATIVE (Negative); Urine Protein TRACE (Negative); Urine RBC >50 /HPF (None Seen); Urine Urobilinogen Normal (Normal); Urine WBC <5 /HPF (<5); Urine Yeast (Budding) Trace /HPF (None Seen)
--- NOTE | 2024-11-22 21:27 | EDPHYS ---
Physician Documentation [facility] Name: Adelaide Larson Age: 24 yrs Sex: Female : 2000 Arrival Date: 11/22/2024 Time: 18:56 Bed DX4 Private MD: ED Physician Steven Arita HPI: 11/22 19:45 This 24 yrs old Female presents to ER via Wheelchair with complaints of Knee Injury - cp left. 19:45 The patient presents with an injury, pain, that is acute. The complaints affect the cp left knee. Patient reports left knee pain over past several weeks. Pain became worse today after left knee gave out and caused her to fall. 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 - Infectious Disease History:: Denies. - Social history:: Smoking status: Patient denies any tobacco usage or history of. ROS: 19:50 MS/extremity: Positive for pain, Negative for decreased range of motion, cp 19:50 Neck: Negative for pain with movement, pain at rest, cp 19:50 Back: Negative for pain at rest, pain with movement, 19:50 Neuro: Negative for numbness, 19:50 All other systems are negative, Exam: 19:55 Constitutional: The patient appears in no acute distress, alert, awake, well developed, cp well nourished, seated in wheelchair 19:55 Head/Face: Normocephalic, atraumatic. cp 19:55 Neck: ROM/movement: is normal, is supple, without pain, no range of motions limitations, 19:55 Chest/axilla: Inspection: normal, 19:55 Cardiovascular: Rate: normal, 19:55 Respiratory: the patient does not display signs of respiratory distress, Respirations: normal, no use of accessory muscles, no retractions, labored breathing, is not present, Breath sounds: are clear throughout, 19:55 Abdomen/GI: Inspection: abdomen appears normal, 19:55 Back: pain, is absent, ROM is normal, 19:55 Musculoskeletal/extremity: Extremities: noted in the left knee: pain, tenderness, There is no evidence of decreased ROM, deformity, swelling, ROM: limited passive range of motion due to pain, in the left knee, Vital Signs: 19:33 BP 128 / 76; Pulse 82; Resp 17; Temp 98.2; Pulse Ox 100% ; Weight 86.18 kg; Height 4 db ft. 11 in. ; Pain 8/10; 20:30 BP 126 / 82; Pulse 70; Resp 20; Pulse Ox 98% on R/A; kj2 21:30 BP 124 / 76; Pulse 78; Resp 20; Temp 98; Pulse Ox 100% on R/A; kj2 19:33 Body Mass Index 38.37 (86.18 kg, 149.86 cm) db 19:33 Pain Scale: Adult db MDM: 19:47 Medical Screening Exam initiated cp 21:25 Data reviewed: vital signs, nurses notes, radiologic studies, plain films, and as a cp result, I will discharge patient. 21:25 Differential diagnosis: dislocation, closed fracture, tendonitis, sprain. Independent cp interpretation of the following test(s) in the Emergency Department X-Ray: My interpretation is images of left knee negative for fracture. Counseling: I had a detailed discussion with the patient and/or guardian regarding the historical points, exam findings, and any diagnostic results supporting the discharge/admit diagnosis, radiology results, the need for outpatient follow up, a orthopedic surgeon, to return to the emergency department if symptoms worsen or persist or if there are any questions or concerns that arise at home. Response to treatment: the patient's symptoms have mildly improved after treatment, and as a result, I will discharge patient. 11/22 19:40 Order name: Test, Urine; Complete Time: 21:26 cp 11/22 19:40 Order name: Urinalysis W/Microscopic; Complete Time: 21:27 cp 11/22 19:40 Order name: XRAY Knee LEFT 3 view; Complete Time: 20:56 cp 11/22 20:57 Order name: Crutches; Complete Time: 21:32 cp 11/22 20:57 Order name: Raffaele wrap-joint; Complete Time: 21:32 cp Administered Medications: 19:52 Drug: Acetaminophen PO 1000 mg PO once Route: PO; lg3 21:34 Follow up: Response: No adverse reaction kj2 21:42 Drug: Ketorolac IM 60 mg IM once Route: IM; Site: right deltoid; kj2 21:42 Follow up: Response: No adverse reaction; Medication administered at discharge. kj2 Disposition: 11/23 19:37 Chart complete. cp Disposition Summary: 11/22/24 21:26 Discharge Ordered Notes: Location: Home cp Problem: new cp Symptoms: have improved cp Condition: Stable cp Diagnosis - Pain in left knee cp Followup: cp - With: Jay Driver MD - When: 5 - 6 days - Reason: Recheck today's complaints Discharge Instructions: - Discharge Summary Sheet cp - Elastic Bandage and RICE Therapy cp - How to Use a Knee Brace cp - Acute Knee Pain, Adult cp Forms: - Medication Reconciliation Form cp - Antibiotic Education cp - Prescription Opioid Use cp - Patient Portal Instructions cp - Leadership Thank You Letter cp Prescriptions: - Anaprox DS 550 mg Oral Tablet - take 1 tablet ORAL route every 12 hours As needed; 20 tablet; Refills: 0, cp Product Selection Permitted Addendum: 11/25/2024 13:31 Co-signature as Attending Physician, Steven Arita MD I reviewed the patient's care r n provided by the Advanced Practice Provider and agree with the diagnosis and treatment plan. Signatures: Dispatcher [employer] Steven Hassan MD MD rn Page, Corey, PA PA cp Able, Lacie RN RN lg3 Marcy Gupta RN Sahra Grady RN RN kj2
--- NOTE | 2024-11-22 21:27 | ER ---
Nurse's Notes [facility] Name: Adelaide Larson Age: 24 yrs Sex: Female : 2000 Arrival Date: 11/22/2024 Time: 18:56 Bed DX4 Private MD: Diagnosis: Pain in left knee Presentation: 11/22 19:33 Chief complaint: Patient states: c/o left knee pain for a few weeks and yesterday it db gave out and she fell landing on left knee. Pain is worse today 8/10, sharp. Unable to bend left knee due to pain. Coronavirus screen: Vaccine status: Patient reports being unvaccinated. Ebola Screen: No symptoms or risks identified at this time. Initial Sepsis Screen: Does the patient meet any 2 criteria? No. Patient's initial sepsis screen is negative. Does the patient have a suspected source of infection? No. Patient's initial sepsis screen is negative. Risk Assessment: Do you want to hurt yourself or someone else? Patient reports no desire to harm self or others. Onset of symptoms is unknown. 19:33 Method Of Arrival: Wheelchair db 19:33 Acuity: LUIZ 4 db Triage Assessment: 21:32 General: Appears in no apparent distress. Injury Description: knee pain. 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 - Infectious Disease History:: Denies. - Social history:: Smoking status: Patient denies any tobacco usage or history of. Screenin:31 [facility] ED Fall Risk Assessment (Adult) History of falling in the last 3 months, kj2 including since admission No falls in past 3 months (0 pts) Confusion or Disorientation No (0 pts) Intoxicated or Sedated No (0 pts) Impaired Gait No (0 pts) Mobility Assist Device Used No (0 pt) Altered Elimination No (0 pt) Score/Fall Risk Level 0 - 2 = Low Risk Maintained a safe environment, Hourly rounding (assess needs \T\ fall precautionary measures) done. Abuse screen: Denies threats or abuse. Denies injuries from another. Nutritional screening: No deficits noted. Tuberculosis screening: No symptoms or risk factors identified. Assessment: 20:00 General: Appears in no apparent distress. Behavior is calm, cooperative. Pain: kj2 Complains of pain in left knee Pain currently is 6 out of 10 on a pain scale. Neuro: Level of Consciousness is awake, alert, Oriented to person, place, time, situation. Cardiovascular: Patient's skin is warm and dry. Respiratory: Airway is patent Respiratory effort is even, unlabored. GI: No signs and/or symptoms were reported involving the gastrointestinal system. : No signs and/or symptoms were reported regarding the genitourinary system. Musculoskeletal: Reports pain in left knee. 21:31 Reassessment: Patient appears in no apparent distress at this time. Patient and/or kj2 family updated on plan of care and expected duration. Pain level reassessed. Patient is alert, oriented x 3, equal unlabored respirations, skin warm/dry/pink. Vital Signs: 19:33 BP 128 / 76; Pulse 82; Resp 17; Temp 98.2; Pulse Ox 100% ; Weight 86.18 kg; Height 4 db ft. 11 in. ; Pain 8/10; 20:30 BP 126 / 82; Pulse 70; Resp 20; Pulse Ox 98% on R/A; kj2 21:30 BP 124 / 76; Pulse 78; Resp 20; Temp 98; Pulse Ox 100% on R/A; kj2 19:33 Body Mass Index 38.37 (86.18 kg, 149.86 cm) db 19:33 Pain Scale: Adult db ED Course: 19:00 Patient arrived in ED. im 19:08 Juan A Sánchez PA is PHCP. cp 19:08 Steven Arita MD is Attending Physician. cp 19:37 Triage completed. db 19:37 Arm band placed on Patient placed in waiting room. db 20:00 Patient has correct armband on for positive identification. Provided Education on: fall kj2 precautions. 20:13 XRAY Knee LEFT 3 view In Process Unspecified. EDMS 21:18 Urinalysis W/Microscopic Sent. vk 21:18 Test, Urine Sent. vk 21:18 Urine collected: clean catch specimen, clear. vk 21:26 Jay Driver MD is Referral Physician. cp 21:32 Crutch training done. Raffaele wrap to left knee. vk 21:33 No provider procedures requiring assistance completed. kj2 21:43 Patient did not have IV access during this emergency room visit. kj2 Administered Medications: 19:52 Drug: Acetaminophen PO 1000 mg PO once Route: PO; lg3 21:34 Follow up: Response: No adverse reaction kj2 21:42 Drug: Ketorolac IM 60 mg IM once Route: IM; Site: right deltoid; kj2 21:42 Follow up: Response: No adverse reaction; Medication administered at discharge. kj2 Medication: 21:32 VIS not applicable for this client. kj2 Outcome: 21:26 Discharge ordered by MD. cp 21:42 Discharged to home via wheelchair, kj2 21:42 Condition: stable 21:42 Discharge instructions given to patient, Instructed on discharge instructions, follow up and referral plans. medication usage, Demonstrated understanding of instructions, follow-up care, medications, Prescriptions given X 1, :43 Patient left the ED. kj2 Signatures: Dispatcher [employer] EDMS Juan A Sánchez PA PA Shahrzad Clay, RN RN lg3 Marcy Gupta, RN RN db Char Greenwood Vivian Sahra Leong, RN RN kj2
[2024-11-22] MEDS ORDERED: KETOROLAC 30 MG/ML INJ ONE (21:30)
[2024-11-23 01:32] VITALS: BP 124/76; TEMP 98; O2SAT 100
== END 2024-11-22 21:43 | disposition home or self-care (01) ==
LOC: ER 18:56
DX: M25.562 Pain in left knee (principal); W18.30XA Fall on same level, unspecified, initial encounter
CPT/HCPCS: 81001; 81025; 96372; 99284

== ENCOUNTER 2025-01-23 21:15 | Emergency (ER) | payer BC ==
[2025-01-23 23:21] LABS: Absolute Basophils 0.1 K/uL (0-0.5); Absolute Eosinophils 0.2 K/uL (0-0.5); Absolute Lymphocytes (CBC) 1.4 K/uL (0.7-4.9); Absolute Monocytes 0.4 K/uL (0.1-1.3); Absolute Neutrophil 2.9 K/uL (1.8-8.0); Basophils % 1.5 % (0-1.3); Eosinophils % 3.1 % (0-4.4); Hematocrit 36.5 % (36.0-45.0); MCHC 32.9 g/dL (32.0-36.0); MPV 9.5 fL (7.6-11.3); Monocytes % 8.4 % (3.3-12.3); Platelets 252 thou/uL (152-406)
[2025-01-23 23:23] LABS: Sqamous Epithelial <5 /HPF (None Seen); Urine Bacteria None Seen /HPF (<20); Urine Bilirubin NEGATIVE (Negative); Urine Blood Negative (Negative); Urine Clarity Turbid (Clear); Urine Color Light-Yellow (Yellow); Urine Culture Reflex Order REFLEXED; Urine Glucose NEGATIVE (Negative); Urine Ketones NEGATIVE (Negative); Urine Microscopic Reflex YN ORDER UMIC; Urine Mucus Slight /HPF (None Seen); Urine Nitrite NEGATIVE (Negative); Urine Protein NEGATIVE (Negative); Urine RBC None Seen /HPF (None Seen); Urine Urobilinogen Normal (Normal)
[2025-01-23 23:31] LABS: Albumin 3.6 g/dL (3.4-5.0); Albumin/Globulin Ratio 1.1 (1.1-1.8); Anion Gap 10.6 mEq/L (5.0-15.0); Bilirubin Total 0.3 mg/dL (0.2-1.0); Globulin 3.2 g/dL (2.3-3.5); Potassium 3.6 mEq/L (3.5-5.1); Protein, Total 6.8 g/dL (6.4-8.2)
[2025-01-23] MEDS ORDERED: METOCLOPRAMIDE 10 MG/2mL INJ ONE (23:32)
[2025-01-23] MEDS ORDERED: NA CHLORIDE 0.9% 1,000 ML ONE (23:32)
[2025-01-23] MEDS ORDERED: DIPHENHYDRAMINE 50 MG/ML VIAL ONE (23:32)
[2025-01-23] MEDS ORDERED: KETOROLAC 30 MG/ML INJ ONE (23:32)
[2025-01-23] MEDS ORDERED: PROMETHAZINE INJ 25 MG/ML AMP ONE (23:39)
[2025-01-24 00:07] LABS: Influenza A Ag Negative; Influenza B Ag Negative; SARS-CoV-2 Antigen Rapid Res Negative (Negative)
[2025-01-24] MEDS ORDERED: ONDANSETRON 4 MG/2 ML VIAL ONE (00:30)
[2025-01-24] MEDS ORDERED: NA CHLORIDE 0.9% 1,000 ML ONE (00:31)
[2025-01-24] MEDS ORDERED: MORPHINE 4 MG/ML SYR ONE (00:31)
--- NOTE | 2025-01-24 02:28 | EDPHYS ---
Physician Documentation [facility] Name: Adelaide Larson Age: 25 yrs Sex: Female : 2000 Arrival Date: 01/23/2025 Time: 21:15 Bed 26 Private MD: ED Physician Juan A Louie HPI: 01/23 22:45 This 25 yrs old Female presents to ER via Ambulatory with complaints of Shortness Of cp Breath, Nausea/Vomiting/Diarrhea, Chest Tightness, Flank Pain. 22:45 The patient has shortness of breath at rest. cp 22:45 Onset: The symptoms/episode began/occurred today. Duration: The symptoms are cp continuous. The patient presents to the emergency department with nausea, that is moderate, vomiting, that is intermittent, diarrhea, that is intermittent. Possible causes: unknown. Associated signs and symptoms: Pertinent negatives: fever, hemoptysis, vomiting blood. 22:45 Severity of symptoms: in the emergency department the symptoms are unchanged despite cp home interventions. 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 - Infectious Disease History:: Denies. - Social history:: Smoking status: Patient denies any tobacco usage or history of. ROS: 22:50 Constitutional: Negative for body aches, chills, fever, cp 22:50 Respiratory: Positive for cough, cp 22:50 Eyes: Negative for injury, pain, redness, and discharge, cp 22:50 ENT: Negative for drainage from ear(s), ear pain, sore throat, difficulty swallowing, difficulty handling secretions, 22:50 Abdomen/GI: Positive for abdominal pain, nausea and vomiting, diarrhea, Negative for constipation, hematemesis, black/tarry stool, rectal bleeding, 22:50 Neuro: Negative for altered mental status, dizziness, headache, weakness, 22:50 All other systems are negative, cp Exam: 22:55 Constitutional: The patient appears in no acute distress, alert, awake, cp non-diaphoretic, non-toxic, well developed, well nourished, uncomfortable, 22:55 Head/Face: Normocephalic, atraumatic. cp 22:55 Eyes: Periorbital structures: appear normal, Conjunctiva: normal, no exudate, no injection, Sclera: no appreciated abnormality, Lids and lashes: appear normal, bilaterally, 22:55 ENT: External ear(s): are unremarkable, Nose: is normal, Mouth: Lips: moist, Oral mucosa: moist, Posterior pharynx: Airway: no evidence of obstruction, patent, 22:55 Chest/axilla: Inspection: normal, 22:55 Cardiovascular: Rate: normal, Rhythm: regular, 22:55 Respiratory: the patient does not display signs of respiratory distress, Respirations: normal, no use of accessory muscles, no retractions, labored breathing, is not present, Breath sounds: are clear throughout, no decreased breath sounds, no stridor, no wheezing, 22:55 Abdomen/GI: Inspection: abdomen appears normal, Bowel sounds: active, all quadrants, Palpation: soft, in all quadrants, moderate abdominal tenderness, in the epigastric area and right upper quadrant, rebound tenderness, is not appreciated, involuntary guarding, is not appreciated, 22:55 Back: CVA tenderness, is absent, 22:55 Neuro: Orientation: to person, place \T\ time. Mentation: is normal, Vital Signs: 21:58 BP 127 / 68; Pulse 99; Resp 18; Temp 98.6; Pulse Ox 100% ; Weight 86.18 kg; Height 4 cm10 ft. 11 in. ; Pain 7/10; 23:10 BP 97 / 64; Pulse 72; Resp 16; Pulse Ox 100% ; cp4 01/24 01:24 BP 114 / 71; Pulse 71; Resp 18; Pulse Ox 99% ; cp4 03:33 BP 100 / 68; Pulse 54; Resp 18; Pulse Ox 100% ; cp4 01/23 21:58 Body Mass Index 38.37 (86.18 kg, 149.86 cm) cm10 01/23 21:58 Pain Scale: Adult cm10 MDM: 01/23 22:04 Medical Screening Exam initiated cp 01/24 02:28 Data reviewed: vital signs, nurses notes, lab test result(s), radiologic studies, CT cp scan, plain films, and as a result, I will discharge patient. 02:28 Differential diagnosis: gastritis, pancreatitis, viral gastroenteritis, cp gastroenteritis, choledocholithiasis pneumonia, Pneumothorax. I considered the following discharge prescriptions or medication management in the emergency department Medications were administered in the Emergency Department. See MAR. Counseling: I had a detailed discussion with the patient and/or guardian regarding the historical points, exam findings, and any diagnostic results supporting the discharge/admit diagnosis, lab results, radiology results, to return to the emergency department if symptoms worsen or persist or if there are any questions or concerns that arise at home. Response to treatment: the patient's symptoms have mildly improved after treatment, and as a result, I will discharge patient. Special discussion: Based on the patient's Hx, exam, and Dx evaluation, there is no indication for emergent surgery or inpatient Tx. It is understood by the patient/guardian that if the Sx's persist or worsen they need to return immediately for re-evaluation. 01/23 22:38 Order name: CBC with Diff; Complete Time: 00:28 cp 01/23 22:38 Order name: CMP; Complete Time: 00:28 cp 01/23 22:38 Order name: Lipase; Complete Time: 00:28 cp 01/23 22:38 Order name: Test, Urine; Complete Time: 00:28 cp 01/23 22:38 Order name: Urinalysis w/ reflexes; Complete Time: 00:28 cp 01/23 23:24 Order name: COVID-19 Ag + Flu A+B Ag; Complete Time: 00:28 cp 01/23 23:29 Order name: Urine Culture EDMS 01/23 23:26 Order name: XRAY Chest (1 view) cp 01/24 00:29 Order name: CT Abd/Pelvis - IV Contrast Only antionette 01/23 22:38 Order name: IV Saline Lock; Complete Time: 23:14 cp 01/23 22:38 Order name: Labs collected and sent; Complete Time: 23:14 cp 01/24 02:23 Order name: PO challenge; Complete Time: 03:18 cp Administered Medications: 01/23 23:43 Drug: NS 0.9% IV 1000 ml IV at 1 bolus Per protocol; to be given as a bolus over 60 cp4 minutes Route: IV; Rate: 1 bolus; Site: left antecubital; 01/24 02:25 Follow up: IV Status: Completed infusion cp4 01/23 23:43 Not Given (Patient Refused): [id number] mg IVP once; over 1 to 2 minutes cp4 23:43 Drug: diphenhydrAMINE IVP 25 mg IVP once Route: IVP; Site: left antecubital; cp4 01/24 02:25 Follow up: Response: No adverse reaction cp4 01/23 23:43 Drug: Ketorolac IVP 15 mg IVP once Route: IVP; Site: left antecubital; cp4 01/24 02:25 Follow up: Response: No adverse reaction cp4 01/23 23:44 Drug: Promethazine IVP 12.5 mg IVP once Route: IVP; Site: left antecubital; cp4 01/24 02:26 Follow up: Response: No adverse reaction cp4 00:33 Drug: morphine IVP or IV 4 mg IVP once over 4 mins Route: IVP; Infused Over: 4 mins; cp4 Site: left antecubital; 02:26 Follow up: Response: No adverse reaction cp4 00:33 Drug: Ondansetron IVP 4 mg IVP once; over 2 minutes Route: IVP; Site: left antecubital; cp4 03:20 Follow up: Response: No adverse reaction cp4 00:33 Drug: NS 0.9% IV 1000 ml IV at 1000 ml once; to be given as a bolus over 60 minutes cp4 Route: IV; Rate: 1000 ml; Site: left antecubital; 03:21 Follow up: IV Status: Completed infusion cp4 03:20 Drug: Promethazine IVP 12.5 mg IVP once Route: IVP; Site: left antecubital; cp4 03:32 Follow up: Response: No adverse reaction cp4 Disposition Summary: 01/24/25 02:28 Discharge Ordered Notes: Location: Home cp Problem: new cp Symptoms: have improved cp Condition: Stable cp Diagnosis - Cough cp - Diarrhea, unspecified cp - Nausea with vomiting, unspecified cp Followup: cp - With: Private Physician - When: 2 - 3 days - Reason: Worsening of condition Discharge Instructions: - Discharge Summary Sheet cp - Diarrhea, Adult cp - Nausea and Vomiting, Adult cp - Cough, Adult cp Forms: - Medication Reconciliation Form cp - Antibiotic Education cp - Prescription Opioid Use cp - Patient Portal Instructions cp - Leadership Thank You Letter cp Prescriptions: - Tessalon Perles 100 mg Oral Capsule - take 1 capsule ORAL route every 8 hours As needed; 15 capsule; Refills: 0, cp Product Selection Permitted - dicyclomine 20 mg Oral tablet - take 1 tablet ORAL route 4 times per day; 30 tablet; Refills: 0, Product cp Selection Permitted - ondansetron 8 mg Oral Tablet,disintegrating - take 1 tablet ORAL route every 12 hours; 20 tablet; Refills: 0, Product cp Selection Permitted Addendum: 01/26/2025 15:28 Co-signature as Attending Physician, Juan A Louie MD I agree with the assessment and c nolasco plan of care. Signatures: Dispatcher [employer] EDJuan A Alexander MD MD cha Page, Corey PA Winifred Bello cp, RN RN cm10 Kajal Lugo cp4 Corrections: (The following items were deleted from the chart) 01/23 22:39 22:39 CBC+H.LAB.BRZ ordered. EDMS EDMS 22:39 22:39 COMPREHENSIVE METABOLIC PANEL+C.LAB.BRZ ordered. EDMS EDMS 22:39 22:39 LIPASE+C.LAB.BRZ ordered. EDMS EDMS 22:39 22:39 Test, Urine+UC.LAB.BRZ ordered. EDMS EDMS 22:39 22:39 Urinalysis+U.LAB.BRZ ordered. EDMS EDMS 23:25 23:25 COVID-19 Ag + Flu A+B Ag+I.LAB.BRZ ordered. EDMS EDMS
--- NOTE | 2025-01-24 02:28 | ER ---
Nurse's Notes [facility] Name: Adelaide Larson Age: 25 yrs Sex: Female : 2000 Arrival Date: 01/23/2025 Time: 21:15 Bed 26 Private MD: Diagnosis: Cough;Diarrhea, unspecified;Nausea with vomiting, unspecified Presentation: 01/23 21:58 Chief complaint: Patient states: RUQ ABDOMINAL PAIN THAT RADIATES TO BACK ONSET TODAY. cm10 PT REPORTS NAUSEA, VOMITING AND DIARRHEA. Coronavirus screen: Client denies travel out of the [place] in the last 14 days. Ebola Screen: Patient denies travel to an Ebola-affected area in the 21 days before illness onset. Initial Sepsis Screen: Does the patient meet any 2 criteria? HR > 90 bpm. Does the patient have a suspected source of infection? No. Patient's initial sepsis screen is negative. Risk Assessment: Do you want to hurt yourself or someone else? Patient reports no desire to harm self or others. Onset of symptoms was January 23, 2025. 21:58 Method Of Arrival: Ambulatory cm10 21:58 Acuity: LUIZ 3 cm10 Triage Assessment: 22:00 General: Appears in no apparent distress. uncomfortable, Behavior is calm, cooperative. cm10 Neuro: No deficits noted. Level of Consciousness is awake, alert, obeys commands, Oriented to person, place, time, situation, Appropriate for age. Respiratory: No deficits noted. Airway is patent Respiratory effort is even, unlabored, Respiratory pattern is regular, symmetrical. 01/24 03:35 Respiratory: Onset: The symptoms/episode began/occurred gradually, the patient has mild cp4 shortness of breath. 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 - Infectious Disease History:: Denies. - Social history:: Smoking status: Patient denies any tobacco usage or history of. Screenin:12 [facility] ED Fall Risk Assessment (Adult) History of falling in the last 3 months, cp4 including since admission No falls in past 3 months (0 pts) Confusion or Disorientation No (0 pts) Intoxicated or Sedated No (0 pts) Impaired Gait No (0 pts) Mobility Assist Device Used No (0 pt) Altered Elimination No (0 pt) Score/Fall Risk Level 0 - 2 = Low Risk Oriented to surroundings, Maintained a safe environment, Assessed \T\ reinforced patient's understanding of fall precautions, Hourly rounding (assess needs \T\ fall precautionary measures) done. Abuse screen: Denies threats or abuse. Denies injuries from another. Nutritional screening: No deficits noted. Tuberculosis screening: No symptoms or risk factors identified. Assessment: 23:11 General: Appears in no apparent distress. comfortable, Behavior is calm, cooperative, cp4 appropriate for age. Pain: Complains of pain in abdomen Pain does not radiate. Pain currently is 7 out of 10 on a pain scale. Neuro: Level of Consciousness is awake, alert, obeys commands, Oriented to person, place, time, situation. Cardiovascular: Rhythm is sinus rhythm. Respiratory: Reports shortness of breath at rest Airway is patent Respiratory effort is even, unlabored, Breath sounds are clear. 23:12 GI: Abdomen is round non-distended, Bowel sounds present X 4 quads. Abd is soft and non cp4 tender X 4 quads. Parent/caregiver reports the patient having diarrhea, nausea, vomiting. : No signs and/or symptoms were reported regarding the genitourinary system. EENT: No signs and/or symptoms were reported regarding the EENT system. Derm: No signs and/or symptoms reported regarding the dermatologic system. Musculoskeletal: No signs and/or symptoms reported regarding the musculoskeletal system. Vital Signs: 21:58 BP 127 / 68; Pulse 99; Resp 18; Temp 98.6; Pulse Ox 100% ; Weight 86.18 kg; Height 4 cm10 ft. 11 in. ; Pain 7/10; 23:10 BP 97 / 64; Pulse 72; Resp 16; Pulse Ox 100% ; cp4 01/24 01:24 BP 114 / 71; Pulse 71; Resp 18; Pulse Ox 99% ; cp4 03:33 BP 100 / 68; Pulse 54; Resp 18; Pulse Ox 100% ; cp4 01/23 21:58 Body Mass Index 38.37 (86.18 kg, 149.86 cm) cm10 01/23 21:58 Pain Scale: Adult cm10 ED Course: 01/23 21:19 Patient arrived in ED. gm2 21:59 Triage completed. cm10 22:00 Arm band placed on right wrist. Patient placed in waiting room. cm10 22:03 Juan A Sánchez PA is PHCP. cp 22:04 Juan A Louie MD is Attending Physician. cp 23:12 Bed in low position. Call light in reach. Side rails up X 1. cp4 23:12 No provider procedures requiring assistance completed. Inserted saline lock: 22 gauge cp4 in left antecubital area, using aseptic technique. Blood collected. Flushed with 10 mL NS. 23:29 Kajal Lugo is Primary Nurse. cp4 23:52 XRAY Chest (1 view) In Process Unspecified. EDMS 01/24 00:55 CT Abd/Pelvis - IV Contrast Only In Process Unspecified. EDMS 03:34 Provided Education on: abdominal pain. cp4 03:34 intact, bleeding controlled, No redness/swelling at site. Pressure dressing applied. cp4 Administered Medications: 01/23 23:43 Drug: NS 0.9% IV 1000 ml IV at 1 bolus Per protocol; to be given as a bolus over 60 cp4 minutes Route: IV; Rate: 1 bolus; Site: left antecubital; 01/24 02:25 Follow up: IV Status: Completed infusion cp4 01/23 23:43 Not Given (Patient Refused): [id number] mg IVP once; over 1 to 2 minutes cp4 23:43 Drug: diphenhydrAMINE IVP 25 mg IVP once Route: IVP; Site: left antecubital; cp4 01/24 02:25 Follow up: Response: No adverse reaction cp4 01/23 23:43 Drug: Ketorolac IVP 15 mg IVP once Route: IVP; Site: left antecubital; cp4 01/24 02:25 Follow up: Response: No adverse reaction cp4 01/23 23:44 Drug: Promethazine IVP 12.5 mg IVP once Route: IVP; Site: left antecubital; cp4 01/24 02:26 Follow up: Response: No adverse reaction cp4 00:33 Drug: morphine IVP or IV 4 mg IVP once over 4 mins Route: IVP; Infused Over: 4 mins; cp4 Site: left antecubital; 02:26 Follow up: Response: No adverse reaction cp4 00:33 Drug: Ondansetron IVP 4 mg IVP once; over 2 minutes Route: IVP; Site: left antecubital; cp4 03:20 Follow up: Response: No adverse reaction cp4 00:33 Drug: NS 0.9% IV 1000 ml IV at 1000 ml once; to be given as a bolus over 60 minutes cp4 Route: IV; Rate: 1000 ml; Site: left antecubital; 03:21 Follow up: IV Status: Completed infusion cp4 03:20 Drug: Promethazine IVP 12.5 mg IVP once Route: IVP; Site: left antecubital; cp4 03:32 Follow up: Response: No adverse reaction cp4 Medication: 01/23 23:12 VIS not applicable for this client. cp4 Outcome: 01/24 02:28 Discharge ordered by MD. cp 03:34 Discharged to home ambulatory, cp4 03:34 Condition: stable 03:34 Discharge instructions given to patient, Instructed on discharge instructions, follow up and referral plans. medication usage, Demonstrated understanding of instructions, follow-up care, medications, Prescriptions given X 3, 03:35 Patient left the ED. cp4 Signatures: Dispatcher [employer] EDMS Juan A Sánchez PA PA cp Martinez, Clarissa, RN RN cm10 Kajal Lugo cp4 Nasima Sotomayor 2
--- NOTE | 2025-01-24 02:36 | RAD REPORT ---
EXAM DESCRIPTION: CT ABDOMEN PELVIS WITH IV CONTRAST 01/24/2025 1:50 AM CDT CLINICAL HISTORY: 25 years, Female, Abdominal pain. COMPARISON: CT Abdomen Pelvis 11/09/2024. PROCEDURE: Contrast-enhanced images of the abdomen and pelvis were performed from the lung bases to the ischial tuberosities after the administration of IV contrast. In addition multiplanar reformats in the coronal and sagittal plane were obtained and reviewed. An individualized dose optimization technique, Automated Exposure Control, was utilized for the perfo rmed procedure. FINDINGS: Lung bases: The lung bases demonstrate to be clear. Liver: The liver demonstrated presence of decreased attenuation corresponding to fatty infiltration. Gallbladder: Surgical clips within the gallbladder fossa corresponding to previous cholecystectomy. N o significant biliary duct dilatation. Adrenal glands: The adrenal glands demonstrate to be normal. Pancreas: The pancreas demonstrate to be normal. Spleen: The spleen demonstrate to be within normal limits. Kidneys: The kidneys demonstrate normal uptake of contrast media. There is is 1.3 mm calculus mid p ole right kidney on axial image 35 and midpole left kidney on image 31. GI: Grossly the unopacified stomach, small bowel and large bowel demonstrate to be within normal limi ts. No evidence for bowel dilatation and/or free air. Surgical clips within the right lower quadrant/cecum core correspond to previous appendectomy. The left-sided colon demonstrate to be decom pressed with no gross abnormalities. : The urinary bladder demonstrate to be unremarkable. Genitalia: The uterus demonstrate to be within normal limits. There are normal adnexal structures. Abdominal aorta: The aorta demonstrate to be within normal limits. Retroperitoneum: There is no retroperitoneal lymphadenopathy. There is no evidence for ascites and/or abnormal fluid collections. Bones: The bony structures demonstrate to be within normal limits. No evidence for compression deform ity and/or significant skeletal lesions. Soft tissues: The soft tissues demonstrate to be unremarkable. IMPRESSION: Status post cholecystectomy and appendectomy. Fatty infiltration of the liver. Bilateral nephrolithiasis. No evidence for hydronephrosis. No evidence for acute intra-abdominal process. Electronically signed by: Arash Tucker MD 01/24/2025 02:14 AM CDT Due to temporary technical issues with the PACS/[employer] reporting system, reports are being tila d by the in-house radiologist without review as a courtesy to ensure prompt reporting the interpreting radiologist is fully responsible for the content of the report. Transcribed Date/Time: 01/24/2025 2:36 AM
[2025-01-24] MEDS ORDERED: PROMETHAZINE INJ 25 MG/ML AMP ONE (03:17)
[2025-01-24 03:42] VITALS: TEMP 98.6
[2025-01-24 03:46] VITALS: BP 100/68; O2SAT 100
--- NOTE | 2025-01-24 04:35 | RAD REPORT ---
CLINICAL HISTORY: Chest pain. COMPARISON: None. TECHNIQUE: XR CHEST 1 VIEW 01/23/2025 11:26 PM CDT FINDINGS: Cardiac silhouette is normal in size. Lungs are clear without consolidation, atelectasis, mass or eliane ma. There is no pleural effusion. There is no pneumothorax. There are no acute osseous findings. IMPRESSION: Clear lungs. Electronically signed by: Michael Carver MD 01/24/2025 03:50 AM CDT RP Due to temporary technical issues with the PACS/[employer] reporting system, reports are being tila d by the in-house radiologist without review as a courtesy to ensure prompt reporting the interpreting radiologist is fully responsible for the content of the report. Transcribed Date/Time: 01/24/2025 4:35 AM
== END 2025-01-24 03:35 | disposition home or self-care (01) ==
LOC: ER 21:15
DX: R05.9 Cough, unspecified (principal); R19.7 Diarrhea, unspecified; R11.2 Nausea with vomiting, unspecified; Z11.52 Encounter for screening for COVID-19
CPT/HCPCS: 96361; 87088; 85025; 81001; 87086; 36415; 81025; 83690; 80053; 74177; 71045; 96375; 96374; 99284; 87428; Q9967; J2550 ×2; J1200; J2405; J7030 ×2; J2765

== ENCOUNTER 2025-02-08 14:04 | Emergency (ER) | payer BC ==
[2025-02-08] MEDS ORDERED: LORazepam 2 MG/ML VIAL ONE (14:42)
[2025-02-08] MEDS ORDERED: KETOROLAC 30 MG/ML INJ ONE (14:42)
[2025-02-08 14:54] LABS: D-Dimer 0.358 FEUug/mL (0-0.500); PT Prothrombin Time 10.6 SECONDS (10-13.0); PTT, Activated Partial Thromb 24.8 SECONDS (27.2-37.4); Protime INR 0.93
[2025-02-08 14:59] LABS: Absolute Basophils 0.1 K/uL (0-0.5); Absolute Eosinophils 0.2 K/uL (0-0.5); Absolute Lymphocytes (CBC) 0.9 K/uL (0.7-4.9); Absolute Monocytes 0.3 K/uL (0.1-1.3); Absolute Neutrophil 3.4 K/uL (1.8-8.0); Basophils % 1.3 % (0-1.3); Eosinophils % 3.9 % (0-4.4); Hematocrit 37.3 % (36.0-45.0); Hemoglobin 12.6 g/dL (12.0-15.0); Lymphocytes % 18.9 % (15.3-44.8); MCH 28.4 pg (27.0-35.0); MCHC 33.7 g/dL (32.0-36.0); MCV 84.2 fL (80-100); MPV 9.1 fL (7.6-11.3); Monocytes % 6.6 % (3.3-12.3); Neutrophils % 69.3 % (41.7-73.7); Nucleated Red Blood Cells % 0.1 % (0-0); Platelets 249 thou/uL (152-406); RBC Red Blood Cell Count 4.42 M/uL (3.86-4.86); Red Cell Distribution Width 14.6 % (12.1-15.2)
[2025-02-08 15:08] LABS: ALT/SGPT 31 U/L (13-56); AST/SGOT 16 U/L (15-37); Albumin 3.7 g/dL (3.4-5.0); Alkaline Phosphatase 65 U/L (45-117); Anion Gap 7.5 mEq/L (5.0-15.0); BUN Blood Urea Nitrogen 10 mg/dL (7-18); Bicarbonate 23 mEq/L (21-32); Bilirubin Total 0.4 mg/dL (0.2-1.0); Globulin 3.6 g/dL (2.3-3.5); Glomerular Filtration Rate 87 ml/min (=/>90); Glucose Level 103 mg/dL (74-106); NT PRO-BNP 59 pg/mL (<125); Potassium 3.5 mEq/L (3.5-5.1); Protein, Total 7.3 g/dL (6.4-8.2); Sodium Level 139 mEq/L (136-145); Troponin High Sensitivity 3.2 pg/mL (<58.9)
[2025-02-08 15:20] LABS: Bilirubin Direct < 0.2 mg/dL (0-0.2); Bilirubin Indirect, Calculated 0.2 mg/dL (0.2-0.8)
--- NOTE | 2025-02-08 15:22 | RAD REPORT ---
EXAMINATION: ONE VIEW CHEST XR CLINICAL INDICATION: Female, 25 years old.,CHEST PAIN TECHNIQUE: Frontal chest projection is submitted. Examination is limited by patient positioning and t echnique. COMPARISON: 01/23/2025 FINDINGS: The lungs are well inflated and clear. No pneumothorax or sizable effusion. The heart is normal in s ize. Mediastinal contours are unremarkable. IMPRESSION: No acute intrathoracic abnormalities.
[2025-02-08 15:37] LABS: Barbiturates NEGATIVE (NEGATIVE); Benzodiazepines NEGATIVE (NEGATIVE); Cocaine NEGATIVE (NEGATIVE); METHAMPHETAM NEGATIVE (NEGATIVE); Methadone NEGATIVE (NEGATIVE); Opiates NEGATIVE (NEGATIVE); Phencyclidine NEGATIVE (NEGATIVE); THC Cannibis NEGATIVE (NEGATIVE)
[2025-02-08] MEDS ORDERED: HYDROCODONE/APAP 10/325 TAB ONE (15:55)
[2025-02-08] MEDS ORDERED: dexAMETHasone 10 MG/ML VIAL ONE (15:55)
[2025-02-08 17:43] LABS: Specific Gravity 1.011 (1.005-1.030)
--- NOTE | 2025-02-08 19:24 | RAD REPORT ---
EXAM: CT Chest For Pe Angio TECHNIQUE: CT angiogram of the chest was performed following intravenous contrast administration, inc luding sagittal and coronal as well as maximum intensity projection reformats. One or more of the following dose reduction techniques were used: Automated exposure control, adjustment of the mA and k V according to patient size, and iterative reconstruction. Unless otherwise specified, incidental findings do not require dedicated imaging follow-up. INDICATION: CHEST PAIN COMPARISON: 10/29/2023 CT. Chest radiograph of the same day. FINDINGS: LINES/TUBES: None. PULMONARY ARTERIES: Main pulmonary arteries are normal in caliber. No filling defects within the pul monary arteries to suggest pulmonary embolus. LUNGS AND AIRWAYS: The lungs and central airways are normal without focal abnormality. PLEURA: No effusion or pneumothorax. HEART AND MEDIASTINUM: The visualized thyroid gland is normal. No mediastinal, hilar, or axillary lym phadenopathy. Heart is unremarkable. No pericardial effusion. SOFT TISSUES AND BONES: No acute osseous abnormality. No significant soft tissue finding. UPPER ABDOMEN: Sequelae of cholecystectomy. IMPRESSION: No evidence of acute central pulmonary emboli. No suspicious intrathoracic findings..
--- NOTE | 2025-02-08 19:36 | ER ---
Nurse's Notes [facility] Name: Adelaide Larson Age: 25 yrs Sex: Female : 2000 Arrival Date: 02/08/2025 Time: 14:04 Bed 19 Private MD: Diagnosis: Chest pain, unspecified;Palpitations Presentation: 02/08 14:10 Chief complaint: Patient states: chest pain, upper abdominal. Coronavirus screen: kj2 Client denies travel out of the [place] in the last 14 days. Ebola Screen: No symptoms or risks identified at this time. 14:10 Method Of Arrival: Ambulatory kj2 14:10 Initial Sepsis Screen: Does the patient meet any 2 criteria? No. Patient's initial kj2 sepsis screen is negative. Does the patient have a suspected source of infection? No. Patient's initial sepsis screen is negative. Risk Assessment: Do you want to hurt yourself or someone else? Patient reports no desire to harm self or others. Onset of symptoms was February 08, 2025. 14:10 Acuity: LUIZ 3 kj2 Triage Assessment: 14:10 General: Appears in no apparent distress. Behavior is cooperative. Pain: Complains of kj2 pain in chest. 19:37 General:. 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 - Infectious Disease History:: Denies. - Social history:: Smoking status: unknown. Screenin:10 [facility] ED Fall Risk Assessment (Adult) History of falling in the last 3 months, kj2 including since admission No falls in past 3 months (0 pts) Confusion or Disorientation No (0 pts) Intoxicated or Sedated No (0 pts) Impaired Gait No (0 pts) Mobility Assist Device Used No (0 pt) Altered Elimination No (0 pt) Score/Fall Risk Level 0 - 2 = Low Risk Maintained a safe environment, Hourly rounding (assess needs \T\ fall precautionary measures) done. Abuse screen: Denies threats or abuse. Denies injuries from another. Nutritional screening: No deficits noted. Tuberculosis screening: No symptoms or risk factors identified. Assessment: 14:10 General: see triage assessment. kj2 14:10 Pain: Pain does not radiate. Pain began suddenly. Cardiovascular: Reports chest pain. kj2 15:10 Reassessment: Patient appears in no apparent distress at this time. Patient and/or kj2 family updated on plan of care and expected duration. Pain level reassessed. Patient is alert, oriented x 3, equal unlabored respirations, skin warm/dry/pink. 16:10 Reassessment: Patient appears in no apparent distress at this time. Patient and/or kj2 family updated on plan of care and expected duration. Pain level reassessed. Patient is alert, oriented x 3, equal unlabored respirations, skin warm/dry/pink. 17:04 Reassessment: Patient appears in no apparent distress at this time. Patient and/or kj2 family updated on plan of care and expected duration. Pain level reassessed. Patient is alert, oriented x 3, equal unlabored respirations, skin warm/dry/pink. 18:10 Reassessment: Patient appears in no apparent distress at this time. Patient and/or kj2 family updated on plan of care and expected duration. Pain level reassessed. Patient is alert, oriented x 3, equal unlabored respirations, skin warm/dry/pink. 19:10 Reassessment: Patient appears in no apparent distress at this time. Patient and/or kj2 family updated on plan of care and expected duration. Pain level reassessed. Patient is alert, oriented x 3, equal unlabored respirations, skin warm/dry/pink. 19:37 Reassessment: Patient appears in no apparent distress at this time. Patient and/or kj2 family updated on plan of care and expected duration. Pain level reassessed. Patient is alert, oriented x 3, equal unlabored respirations, skin warm/dry/pink. Vital Signs: 14:10 Weight 86.18 kg; Height 4 ft. 11 in. ; Pain 5/10; kj2 14:15 BP 115 / 72; Pulse 104; Resp 18; Temp 98.9; Pulse Ox 99% on R/A; kj2 14:15 BP 121 / 76; Pulse 112; Resp 20; Pulse Ox 100% ; kj2 15:10 BP 118 / 78; Pulse 98; Resp 18; Pulse Ox 100% on R/A; kj2 16:10 BP 107 / 66; Pulse 89; Resp 18; Pulse Ox 100% ; kj2 17:05 BP 111 / 77; Pulse 94; Resp 18; Pulse Ox 100% on R/A; kj2 18:04 BP 112 / 78; Pulse 88; Resp 20; Pulse Ox 100% ; kj2 19:28 BP 119 / 69; Pulse 112; Resp 18; Pulse Ox 99% on R/A; kj2 19:59 BP 116 / 78; Pulse 115; Resp 18; Temp 98; Pulse Ox 100% ; kj2 14:10 Body Mass Index 38.37 (86.18 kg, 149.86 cm) kj2 14:10 Pain Scale: Adult kj2 ED Course: 14:06 Patient arrived in ED. cj3 14:10 Juan A Sánchez PA is PHCP. cp 14:10 Patient has correct armband on for positive identification. Provided Education on: call kj2 light. Client placed on continuous cardiac and pulse oximetry monitoring. NIBP monitoring applied. marble polisher hand on. 14:10 Arm band placed on Patient placed in an exam room. kj2 14:11 Steven Arita MD is Attending Physician. cp 14:15 No provider procedures requiring assistance completed. Patient maintains SpO2 kj2 saturation greater than 95% on room air. 14:26 Sahra Leong, JAZ is Primary Nurse. kj2 14:49 XRAY Chest (1 view) In Process Unspecified. EDMS 15:16 UDS Sent. kj2 17:25 Troponin High Sensitivity Sent. kj2 17:29 Triage completed. kj2 18:33 CT Chest For PE Angio In Process Unspecified. EDMS 19:36 Renato Cook MD is Referral Physician. cp 19:40 IV discontinued, intact, bleeding controlled, No redness/swelling at site. Pressure kj2 dressing applied. Administered Medications: 14:44 Drug: Ketorolac IVP 15 mg IVP once Route: IVP; Site: right antecubital; kj2 16:00 Follow up: Response: No adverse reaction kj2 14:45 Drug: Ativan IVP 1 mg IVP once Route: IVP; Site: right antecubital; kj2 16:00 Follow up: Response: No adverse reaction kj2 15:59 Drug: Dexamethasone IVP 10 mg IVP once; (not to exceed 40 mg) Route: IVP; Site: right kj2 antecubital; 19:41 Follow up: Response: No adverse reaction kj2 15:59 Drug: HYDROcodone-acetaminophen PO 10 mg-325 mg 1 tabs PO once Route: PO; kj2 19:41 Follow up: Response: No adverse reaction kj2 19:50 Drug: Metoprolol PO 12.5 mg PO once Route: PO; kj2 19:59 Follow up: Response: Medication administered at discharge. kj2 Medication: 14:10 VIS not applicable for this client. kj2 Outcome: 19:35 Discharge ordered by MD. cp 19:39 Discharged to home ambulatory, kj2 19:39 Condition: stable 19:39 Discharge instructions given to patient, Instructed on discharge instructions, follow up and referral plans. Demonstrated understanding of instructions, follow-up care, 19:59 Patient left the ED. kj2 Signatures: Dispatcher [employer] EDMS Juan A Sánchez PA PA cp Jordan, Krystal, RN RN kj2 Flaquita Morris cj3 Corrections: (The following items were deleted from the chart) 19:30 19:28 BP 133 / 71; Pulse 72bpm; Resp 18bpm; Pulse Ox 97% RA; kj2 kj2
--- NOTE | 2025-02-08 19:36 | EDPHYS ---
Physician Documentation [facility] Name: Adelaide Larson Age: 25 yrs Sex: Female : 2000 Arrival Date: 02/08/2025 Time: 14:04 Bed 19 Private MD: ED Physician Steven Arita HPI: 02/08 14:14 This 25 yrs old Female presents to ER via Unassigned with complaints of Chest Pain, cp Doesn't Feel Right. 14:15 The patient presents with a history of heart racing. Context: The symptoms occur at cp rest. Onset: The symptoms/episode began/occurred yesterday. Duration: The patient or guardian reports a single episode, that is still ongoing. 14:15 Associated signs and symptoms: Pertinent positives: SOB, Pertinent negatives: cough, cp syncope, near-syncope, vomiting. 14:15 Severity of symptoms: in the emergency department the symptoms are unchanged despite cp home interventions. 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 - Infectious Disease History:: Denies. - Social history:: Smoking status: unknown. ROS: 14:18 Constitutional: Negative for body aches, chills, fever, poor PO intake, cp 14:18 Cardiovascular: Positive for chest pain, palpitations, Negative for edema, cp 14:18 Respiratory: Positive for shortness of breath, Negative for cough, wheezing, 14:18 Eyes: Negative for injury, pain, redness, and discharge, cp 14:18 ENT: Negative for drainage from ear(s), ear pain, sore throat, difficulty swallowing, cp difficulty handling secretions, 14:18 Abdomen/GI: Negative for abdominal pain, vomiting, diarrhea, constipation, 14:18 Neuro: Negative for altered mental status, syncope, near syncope, weakness, 14:18 All other systems are negative, cp Exam: 14:22 Constitutional: The patient appears in no acute distress, alert, awake, cp non-diaphoretic, non-toxic, well developed, well nourished, uncomfortable, overweight 14:22 Head/Face: Normocephalic, atraumatic. cp 14:22 Eyes: Periorbital structures: appear normal, Conjunctiva: normal, no exudate, no injection, Sclera: no appreciated abnormality, Lids and lashes: appear normal, bilaterally, 14:22 ENT: External ear(s): are unremarkable, Nose: is normal, Mouth: Lips: moist, Oral mucosa: moist, Posterior pharynx: Airway: no evidence of obstruction, patent, 14:22 Neck: ROM/movement: is normal, is supple, without pain, no range of motions limitations, 14:22 Chest/axilla: Inspection: normal, Palpation: crepitus, is not appreciated, tenderness, that is moderate, of the anterior aspect of right upper chest, anterior aspect of left upper chest and mid-sternal area, 14:22 Cardiovascular: Rate: tachycardic, Rhythm: regular, Edema: is not appreciated, JVD: is not appreciated, 14:22 Respiratory: the patient does not display signs of respiratory distress, Respirations: labored breathing, is not present, shallow respirations, that is mild, Breath sounds: are clear throughout, no decreased breath sounds, no stridor, no wheezing, 14:22 Abdomen/GI: Inspection: abdomen appears normal, Bowel sounds: active, all quadrants, Palpation: abdomen is soft and non-tender, in all quadrants, 14:22 Back: pain, is absent, ROM is normal, 14:22 Neuro: Orientation: to person, place \T\ time. Mentation: is normal, Motor: moves all fours, strength is normal, Sensation: is normal, 14:27 ECG was reviewed by the Attending Physician. cp 16:49 ECG was reviewed by the Attending Physician. cp Vital Signs: 14:10 Weight 86.18 kg; Height 4 ft. 11 in. ; Pain 5/10; kj2 14:15 BP 115 / 72; Pulse 104; Resp 18; Temp 98.9; Pulse Ox 99% on R/A; kj2 14:15 BP 121 / 76; Pulse 112; Resp 20; Pulse Ox 100% ; kj2 15:10 BP 118 / 78; Pulse 98; Resp 18; Pulse Ox 100% on R/A; kj2 16:10 BP 107 / 66; Pulse 89; Resp 18; Pulse Ox 100% ; kj2 17:05 BP 111 / 77; Pulse 94; Resp 18; Pulse Ox 100% on R/A; kj2 18:04 BP 112 / 78; Pulse 88; Resp 20; Pulse Ox 100% ; kj2 19:28 BP 119 / 69; Pulse 112; Resp 18; Pulse Ox 99% on R/A; kj2 19:59 BP 116 / 78; Pulse 115; Resp 18; Temp 98; Pulse Ox 100% ; kj2 14:10 Body Mass Index 38.37 (86.18 kg, 149.86 cm) kj2 14:10 Pain Scale: Adult kj2 MDM: 14:13 Medical Screening Exam initiated cp 19:35 Data reviewed: vital signs, nurses notes, lab test result(s), EKG, radiologic studies, cp CT scan, plain films, and as a result, I will discharge patient. 19:35 Differential diagnosis: arrythmia, dehydration, stress disorder, acute [place], pulmonary cp embolism. I considered the following discharge prescriptions or medication management in the emergency department Medications were administered in the Emergency Department. See MAR. Independent interpretation of the following test(s) in the Emergency Department EKG: See my EKG interpretation above. 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 Response to treatment: the patient's symptoms have markedly improved after treatment, and as a result, I will discharge patient. 02/08 14:14 Order name: Basic Metabolic Panel; Complete Time: 15:46 cp 02/08 15:46 Interpretation: Normal except: CL 112; GFR 87. cp 02/08 14:14 Order name: CBC with Diff; Complete Time: 15:46 cp 02/08 14:14 Order name: D-Dimer; Complete Time: 15:46 cp 02/08 14:14 Order name: LFT's; Complete Time: 15:46 cp 02/08 15:47 Interpretation: Normal except: GLOB 3.6; A/G 1.0. cp 02/08 14:14 Order name: Magnesium; Complete Time: 15:46 cp 02/08 14:14 Order name: NT PRO-BNP; Complete Time: 15:46 cp 14 14:14 Order name: PT-INR; Complete Time: 15:46 cp 14 14:14 Order name: Troponin HS; Complete Time: 15:46 cp 02/08 14:14 Order name: Ptt, Activated; Complete Time: 15:46 cp 02/08 14:14 Order name: UDS; Complete Time: 15:46 cp 02/08 16:16 Order name: Troponin High Sensitivity; Complete Time: 18:19 cp 02/08 18:19 Interpretation: Reviewed. cp 02/08 17:34 Order name: Test, Urine; Complete Time: 18:19 ld1 02/08 18:20 Interpretation: Reviewed. cp 02/08 14:14 Order name: XRAY Chest (1 view); Complete Time: 15:46 cp 02/08 16:49 Order name: CT Chest For PE Angio; Complete Time: 19:34 cp 02/08 19:34 Interpretation: Report reviewed. cp 02/08 14:14 Order name: Cardiac monitoring; Complete Time: 15:04 cp 02/08 14:14 Order name: EKG - Nurse/Tech; Complete Time: 14:45 cp 02/08 14:14 Order name: IV Saline Lock; Complete Time: 14:45 cp 02/08 14:14 Order name: Labs collected and sent; Complete Time: 14:45 cp 02/08 14:14 Order name: O2 Per Protocol; Complete Time: 14:45 cp 02/08 14:14 Order name: O2 Sat Monitoring; Complete Time: 14:45 cp 02/08 16:16 Order name: EKG - Nurse/Tech; Complete Time: 16:39 cp EC:27 Rate is 116 beats/min. Rhythm is regular. DE interval is normal. QRS interval is cp normal. QT interval is normal. T waves are Inverted in leads III, aVF, aVR, V3, V4, V5. Interpreted by me. Reviewed by me. 16:49 Rate is 87 beats/min. Rhythm is regular. DE interval is normal. QRS interval is normal. cp QT interval is normal. T waves are Inverted in leads aVR, V2, V3, V4. Interpreted by me. Reviewed by me. Administered Medications: 14:44 Drug: Ketorolac IVP 15 mg IVP once Route: IVP; Site: right antecubital; kj2 16:00 Follow up: Response: No adverse reaction kj2 14:45 Drug: Ativan IVP 1 mg IVP once Route: IVP; Site: right antecubital; kj2 16:00 Follow up: Response: No adverse reaction kj2 15:59 Drug: Dexamethasone IVP 10 mg IVP once; (not to exceed 40 mg) Route: IVP; Site: right kj2 antecubital; 19:41 Follow up: Response: No adverse reaction kj2 15:59 Drug: HYDROcodone-acetaminophen PO 10 mg-325 mg 1 tabs PO once Route: PO; kj2 19:41 Follow up: Response: No adverse reaction kj2 19:50 Drug: Metoprolol PO 12.5 mg PO once Route: PO; kj2 19:59 Follow up: Response: Medication administered at discharge. kj2 Disposition Summary: 02/08/25 19:35 Discharge Ordered Notes: Location: Home cp Problem: new cp Symptoms: have improved cp Condition: Stable cp Diagnosis - Chest pain, unspecified cp - Palpitations cp Followup: cp - With: Renato Cook MD - When: 2 - 3 days - Reason: Recheck today's complaints Discharge Instructions: - Discharge Summary Sheet cp - Nonspecific Chest Pain, Adult cp - Palpitations cp - Aspirin and Your Heart cp Forms: - Medication Reconciliation Form cp - Antibiotic Education cp - Prescription Opioid Use cp - Patient Portal Instructions cp - Leadership Thank You Letter cp Prescriptions: - Ibuprofen 800 mg Oral Tablet - take 1 tablet ORAL route every 8 hours As needed take with food; 30 tablet; cp Refills: 0, Product Selection Permitted Signatures: Dispatcher [employer] EDMS Juan A Sánchez PA PA cp Sahar Leong RN RN kj2 Corrections: (The following items were deleted from the chart) 14:14 14:14 BASIC METABOLIC PANEL+C.LAB.BRZ ordered. EDMS EDMS 14:14 14:14 CBC+H.LAB.BRZ ordered. EDMS EDMS 14:14 14:14 D-DIMER+COAG.LAB.BRZ ordered. EDMS EDMS 14:14 14:14 HEPATIC FUNCTION+C.LAB.BRZ ordered. EDMS EDMS 14:14 14:14 MAGNESIUM+C.LAB.BRZ ordered. EDMS EDMS 14:14 14:14 PROBNP+C.LAB.BRZ ordered. EDMS EDMS 14:14 14:14 PROTIME (+INR)+COAG.LAB.BRZ ordered. EDMS EDMS 14:14 14:14 Troponin High Sensitivity+C.LAB.BRZ ordered. EDMS EDMS 14:14 14:14 PTT, ACTIVATED+COAG.LAB.BRZ ordered. EDMS EDMS 14:14 14:14 URINE DRUG SCREEN+UC.LAB.BRZ ordered. EDMS EDMS 14:14 14:14 Chest Single View+RAD.RAD.BRZ ordered. EDMS EDMS
[2025-02-08] MEDS ORDERED: METOPROLOL TAR 25 MG TAB ONE (19:46)
[2025-02-08 20:16] VITALS: BP 116/78; TEMP 98; O2SAT 100
== END 2025-02-08 19:59 | disposition home or self-care (01) ==
LOC: ER 14:04
DX: R07.9 Chest pain, unspecified (principal); R00.2 Palpitations; F41.9 Anxiety disorder, unspecified
CPT/HCPCS: 93005 ×2; 85025; 80048; 36415; 83735; 81025; 85610; 85379; 80076; 85730; 84484 ×2; 83880; 80307; 71275; 71045; 96375; 96374; 99285; Q9967; J1100

== ENCOUNTER 2025-02-10 01:47 | Emergency (ER) | payer BC ==
[2025-02-10] MEDS ORDERED: LEVALBUTEROL 1.25 MG/3 ML NEB ONE (02:19)
--- NOTE | 2025-02-10 05:03 | ER ---
Nurse's Notes [facility] Name: Adelaide Larson Age: 25 yrs Sex: Female : 2000 Arrival Date: 02/10/2025 Time: 01:47 Bed IW3 Private MD: Diagnosis: Presentation: 02/10 02:13 Chief complaint: Patient states: short of breath, feel like I can't catch my breath. vc1 Chest pain. Coronavirus screen: Client denies travel out of the [place] in the last 14 days. At this time, the client does not indicate any symptoms associated with coronavirus-19. Ebola Screen: Patient negative for fever greater than or equal to 101.5 degrees Fahrenheit, and additional compatible Ebola Virus Disease symptoms Patient denies exposure to infectious person. Patient denies travel to an Ebola-affected area in the 21 days before illness onset. No symptoms or risks identified at this time. Initial Sepsis Screen: Does the patient meet any 2 criteria? No. Patient's initial sepsis screen is negative. Does the patient have a suspected source of infection? No. Patient's initial sepsis screen is negative. Risk Assessment: Do you want to hurt yourself or someone else? Patient reports no desire to harm self or others. Onset of symptoms was February 10, 2025. 02:13 Method Of Arrival: Ambulatory vc1 02:13 Acuity: LUIZ 3 vc1 Triage Assessment: 02:40 General: Appears in no apparent distress. obese, Behavior is cooperative, anxious. vc1 Pain: Complains of pain in chest. EENT: No deficits noted. No signs and/or symptoms were reported regarding the EENT system. Neuro: Level of Consciousness is awake, alert, obeys commands, Oriented to person, place, time, situation, Appropriate for age. Cardiovascular: Heart tones S1 S2 present Capillary refill < 3 seconds Patient's skin is warm and dry. Respiratory: Airway is patent Respiratory effort is even, unlabored, Respiratory pattern is regular, symmetrical, Breath sounds are clear bilaterally. the patient has mild shortness of breath. Respiratory: Reports shortness of breath cough that is. GI: No deficits noted. No signs and/or symptoms were reported involving the gastrointestinal system. : No deficits noted. No signs and/or symptoms were reported regarding the genitourinary system. Derm: No deficits noted. No signs and/or symptoms reported regarding the dermatologic system. Musculoskeletal: Circulation, motion, and sensation intact. Range of motion: intact in all extremities. 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 Flu vaccine is not up to date. - Infectious Disease History:: Denies. - Social history:: Smoking status: Patient denies any tobacco usage or history of. Screenin:10 [facility] ED Fall Risk Assessment (Adult) History of falling in the last 3 months, vc1 including since admission No falls in past 3 months (0 pts) Confusion or Disorientation No (0 pts) Intoxicated or Sedated No (0 pts) Impaired Gait No (0 pts) Mobility Assist Device Used No (0 pt) Altered Elimination No (0 pt) Score/Fall Risk Level 0 - 2 = Low Risk Oriented to surroundings, Maintained a safe environment, Educated pt \T\ family on fall prevention, incl call for assistance when getting out of bed. Abuse screen: Denies threats or abuse. Nutritional screening: No deficits noted. Tuberculosis screening: No symptoms or risk factors identified. Assessment: 03:14 Reassessment: Patient appears in no apparent distress at this time. Patient and/or bm8 family updated on plan of care and expected duration. Pain level reassessed. Patient is alert, oriented x 3, equal unlabored respirations, skin warm/dry/pink. General: Appears in no apparent distress. comfortable, Behavior is calm, cooperative, appropriate for age. Pain: Complains of pain in chest Pain currently is 7 out of 10 on a pain scale. Quality of pain is described as aching. Cardiovascular: Reports chest pain, shortness of breath, Heart tones S1 S2 present Capillary refill < 3 seconds in bilateral fingers Patient's skin is warm and dry. Rhythm is sinus rhythm. Respiratory: Airway is patent Respiratory effort is even, unlabored, Respiratory pattern is regular, symmetrical. Vital Signs: 02:13 BP 127 / 82; Pulse 95; Resp 20; Temp 98.5; Pulse Ox 100% ; Weight 86.18 kg; Height 4 vc1 ft. 11 in. ; Pain 8/10; 03:14 BP 133 / 61; Pulse 82; Resp 18; Temp 98.5; Pulse Ox 100% ; Pain 7/10; bm8 02:13 Body Mass Index 38.37 (86.18 kg, 149.86 cm) vc1 02:13 Pain Scale: Adult vc1 03:14 Pain Scale: Adult bm8 Jeromy Coma Score: 03:14 Eye Response: spontaneous(4). Motor Response: obeys commands(6). Verbal Response: bm8 oriented(5). Total: 15. ED Course: 01:51 Patient arrived in ED. gm2 01:53 Juan A Sánchez PA is PHCP. cp 01:53 Juan A Louie MD is Attending Physician. cp 02:15 Triage completed. vc1 02:16 Arm band placed on right wrist. vc1 03:33 XRAY Chest (1 view) In Process Unspecified. EDMS Administered Medications: 02:28 Drug: Levalbuterol Inhalation 1.25 mg Inhalation once Route: Inhalation; vc1 Outcome: 05:01 Eloped FROM DIAGNOSTIC CHAIR vc1 05:01 Condition: stable 05:03 Patient left the ED. vc1 Signatures: Dispatcher [employer] EDMS Juan A Sánchez PA PA cp Calcote, Vanessa, RN RN vc1 Nasima Sotomayor gm2 Elias aBlbuena RN RN bm8
--- NOTE | 2025-02-10 05:03 | EDPHYS ---
Physician Documentation [facility] Name: Adelaide Larson Age: 25 yrs Sex: Female : 2000 Arrival Date: 02/10/2025 Time: 01:47 Bed IW3 Private MD: ED Physician Juan A Louie HPI: 02/10 02:25 This 25 yrs old Female presents to ER via Ambulatory with complaints of Fever, cp Shortness Of Breath, Chest Tightness. 02:25 The patient reports fever, not measured (subjective). Onset: The symptoms/episode cp began/occurred today. Associated signs and symptoms: Pertinent positives: chest pain, shortness of breath, Pertinent negatives: abdominal pain, altered mental status, diarrhea, headache, sore throat, vomiting. Severity of symptoms: in the emergency department the symptoms are unchanged despite home interventions. 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 Flu vaccine is not up to date. - Infectious Disease History:: Denies. - Social history:: Smoking status: Patient denies any tobacco usage or history of. ROS: 02:30 Constitutional: Negative for fever, poor PO intake, cp 02:30 Eyes: Negative for injury, pain, redness, and discharge, cp 02:30 ENT: Negative for drainage from ear(s), ear pain, sore throat, difficulty swallowing, difficulty handling secretions, 02:30 Cardiovascular: Positive for chest pain, chest tightness, Negative for edema, palpitations, 02:30 Respiratory: Positive for shortness of breath, at rest. wheezing, 02:30 Abdomen/GI: Negative for abdominal pain, vomiting, diarrhea, constipation, 02:30 Back: Negative for pain at rest, pain with movement, 02:30 Neuro: Negative for altered mental status, syncope, near syncope, weakness, 02:30 All other systems are negative, Exam: 02:32 ECG was reviewed by the Attending Physician. cp 02:34 Constitutional: The patient appears in no acute distress, alert, awake, cp non-diaphoretic, non-toxic, well developed, well nourished, overweight 02:34 Head/Face: Normocephalic, atraumatic. cp 02:34 Eyes: Periorbital structures: appear normal, Conjunctiva: normal, no exudate, no injection, Sclera: no appreciated abnormality, Lids and lashes: appear normal, bilaterally, 02:34 ENT: External ear(s): are unremarkable, Nose: is normal, Mouth: Lips: moist, Oral mucosa: moist, Posterior pharynx: Airway: no evidence of obstruction, patent, 02:34 Chest/axilla: Inspection: normal, 02:34 Cardiovascular: Rate: normal, Rhythm: regular, Edema: is not appreciated, JVD: is not appreciated, 02:34 Respiratory: the patient does not display signs of respiratory distress, Respirations: labored breathing, that is mild, intercostal retractions, are absent, Breath sounds: decreased breath sounds, are not appreciated, rhonchi, are not appreciated, stridor, is not appreciated, wheezing: expiratory that is mild, is heard diffusely, 02:34 Abdomen/GI: Exam negative for discomfort, distension, guarding, Inspection: abdomen appears normal, 02:34 Back: CVA tenderness, is absent, 02:34 Skin: no rash present. 02:34 Neuro: Orientation: to person, place \T\ time. Mentation: is normal, Motor: moves all fours, strength is normal, Sensation: is normal, Vital Signs: 02:13 BP 127 / 82; Pulse 95; Resp 20; Temp 98.5; Pulse Ox 100% ; Weight 86.18 kg; Height 4 vc1 ft. 11 in. ; Pain 8/10; 03:14 BP 133 / 61; Pulse 82; Resp 18; Temp 98.5; Pulse Ox 100% ; Pain 7/10; bm8 02:13 Body Mass Index 38.37 (86.18 kg, 149.86 cm) vc1 02:13 Pain Scale: Adult vc1 03:14 Pain Scale: Adult bm8 [place] Coma Score: 03:14 Eye Response: spontaneous(4). Motor Response: obeys commands(6). Verbal Response: bm8 oriented(5). Total: 15. MDM: 02:15 Medical Screening Exam initiated 02:40 Differential diagnosis: viral Infection, bacterial infection, bronchitis, pneumonia cp asthma exacerbation, bronchitis. 02:45 Data reviewed: vital signs, nurses notes. 02:45 I considered the following discharge prescriptions or medication management in the emergency department Medications were administered in the Emergency Department. See MAR. 02/10 02:20 Order name: XRAY Chest (1 view) 02/10 02:20 Order name: EKG; Complete Time: 02:21 02/10 02:20 Order name: EKG - Nurse/Tech; Complete Time: 02:28 02/10 02:20 Order name: Cardiac monitoring 02/10 02:20 Order name: IV Saline Lock 02/10 02:20 Order name: Labs collected and sent 02/10 02:20 Order name: O2 Per Protocol 02/10 02:20 Order name: O2 Sat Monitoring EC:32 Rate is 79 beats/min. Rhythm is regular. [place] interval is normal. QRS interval is normal. QT interval is normal. T waves are Inverted in leads III, aVR, V3, V4. Interpreted by me. Reviewed by me. Administered Medications: 02:28 Drug: Levalbuterol Inhalation 1.25 mg Inhalation once Route: Inhalation; vc1 Disposition Summary: 02/10/25 05:03 Eloped Notes: Disposition: post triage evaluation and consult vc1 Reason: wait time vc1 Signatures: Dispatcher [employer] EDMS Juan A Sánchez PA PA cp [place]cote, Vanessa RN RN vc1
[2025-02-10 05:08] VITALS: TEMP 98.5; O2SAT 100
[2025-02-10 05:09] VITALS: BP 133/61
--- NOTE | 2025-02-10 06:42 | RAD REPORT ---
EXAM: XR CHEST 1 VIEW HISTORY: 25 years Female CHEST PAIN COMPARISON: None. FINDINGS: LUNGS/PLEURA: The lungs are clear. No pleural effusions or pneumothorax. No pulmonary edema. CARDIAC/MEDIASTINUM: The cardiac silhouette is within normal limits. UPPER ABDOMEN: No significant abnormality. BONES: No acute abnormality. LINES/TUBES/OTHER: N/A IMPRESSION: No evidence of acute cardiopulmonary disease. Electronically signed by: Mor Urban MD 02/10/2025 06:23 AM CDT Due to temporary technical issues with the PACS/[employer] reporting system, reports are being tila d by the in-house radiologist without review as a courtesy to ensure prompt reporting the interpreting radiologist is fully responsible for the content of the report. Transcribed Date/Time: 02/10/2025 6:42 AM
== END 2025-02-10 05:03 | disposition left against medical advice (07) ==
LOC: ER 01:47
DX: R07.89 Other chest pain (principal); R06.02 Shortness of breath; Z28.310 Unvaccinated for COVID-19
CPT/HCPCS: 93005; 71045; J7614

== ENCOUNTER 2025-08-03 02:10 | Emergency (ER) | payer BC ==
[2025-08-03] MEDS ORDERED: DIAZEPAM 5 MG TABLET ONE (02:51)
[2025-08-03] MEDS ORDERED: HYDROCODONE/APAP 5/325 MG TAB ONE (02:51)
[2025-08-03] MEDS ORDERED: NA CHLORIDE 0.9% 1,000 ML ONE (02:52)
[2025-08-03 03:54] LABS: PT Prothrombin Time 11.4 SECONDS (10-13.0); Protime INR 1.01
[2025-08-03 03:57] LABS: Absolute Lymphocytes (CBC) 1.4 K/uL (0.7-4.9); Hematocrit 32.5 % (36.0-45.0); Hemoglobin 11.1 g/dL (12.0-15.0); MCH 28.4 pg (27.0-35.0); MCHC 34.1 g/dL (32.0-36.0); MCV 83.3 fL (80-100); MPV 9.1 fL (7.6-11.3); Nucleated RBC Absolute Count 0.0 (0-0); Nucleated Red Blood Cells % 0.1 % (0-0); RBC Red Blood Cell Count 3.90 M/uL (3.86-4.86)
[2025-08-03 04:00] LABS: White Blood Count 5.20 thou/uL (4.3-10.9)
[2025-08-03 04:06] LABS: ALT/SGPT 23 U/L (13-56); Albumin 3.3 g/dL (3.4-5.0); Albumin/Globulin Ratio 1.1 (1.1-1.8); Alkaline Phosphatase 79 U/L (45-117); Anion Gap 8.6 mEq/L (5.0-15.0); BUN Blood Urea Nitrogen 10 mg/dL (7-18); Globulin 3.1 g/dL (2.3-3.5); Glucose Level 102 mg/dL (74-106); Magnesium 1.9 mg/dL (1.6-2.4); NT PRO-BNP 27 pg/mL (<125); Potassium 3.6 mEq/L (3.5-5.1)
[2025-08-03 04:07] LABS: AST/SGOT < 10 U/L (15-37); Bilirubin Indirect, Calculated 0.0 mg/dL (0.2-0.8); Troponin High Sensitivity < 3.0 pg/mL (<58.9)
--- NOTE | 2025-08-03 07:14 | RAD REPORT ---
EXAM: CT Angiography Chest With Intravenous Contrast CLINICAL HISTORY: The patient is 25 years old and is Female; Chest pain. TECHNIQUE: Axial computed tomographic angiography images of the chest with intravenous contrast. Sagittal and coronal reformatted images were created and reviewed. This CT exam was performed using one or more of the following dose reduction techniques: automated exposure control, adjustmen t of the mA and/or kV according to patient size, and/or use of iterative reconstruction technique. MIP reconstructed images were created and reviewed. COMPARISON: CTA Chest 02/08/2025. FINDINGS: Pulmonary arteries: No PE identified. Aorta: No acute findings. No thoracic aortic aneurysm. Lungs and pleural spaces: Unremarkable. No mass. No consolidation. No significant effusion. No pneumothorax. Heart: No cardiomegaly. No significant pericardial effusion. Bones/joints: No acute fracture. No dislocation. Soft tissues: Unremarkable. Lymph nodes: No pathologically enlarged lymph nodes. Gallbladder and bile ducts: Cholecystectomy. IMPRESSION: No PE identified. Electronically signed by: Anamika Peck MD 08/03/2025 07:07 AM CDT V2 Due to temporary technical issues with the PACS/[employer] reporting system, reports are being tila d by the in-house radiologist without review as a courtesy to ensure prompt reporting the interpreting radiologist is fully responsible for the content of the report. Transcribed Date/Time: 08/03/2025 7:13 AM
--- NOTE | 2025-08-03 07:17 | EDPHYS ---
Physician Documentation [facility] Name: Adelaide Larson Age: 25 yrs Sex: Female : 2000 Arrival Date: 08/03/2025 Time: 02:10 Bed 17 Private MD: ED Physician Jameel Jaime HPI: 08/03 02:25 This 25 yrs old Female presents to ER via Wheelchair with complaints of Chest sp4 Pain. 08/04 00:38 25-year-old female presents with acute midsternal chest pain. 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 - Infectious Disease History:: Denies. - Social history:: Smoking status: Patient denies any tobacco usage or history of. - Family history:: not pertinent. ROS: 08/04 00:38 Constitutional: Negative for fever, chills, and weight loss, sp4 All other systems are negative, Exam: 08/03 03:00 Constitutional: This is a well developed, well nourished patient who is awake, alert, sp4 and in no acute distress. Head/Face: Normocephalic, atraumatic. Eyes: Pupils equal round and reactive to light, extra-ocular motions intact. Lids and lashes normal. Conjunctiva and sclera are not injected. Cornea within normal limits. Periorbital areas with no swelling, redness, or edema. ENT: Nares patent. No nasal discharge, no septal abnormalities noted. Tympanic membranes are normal and external auditory canals are clear. Oropharynx with no redness, swelling, or masses, exudates, or evidence of obstruction, uvula midline. Mucous membranes moist. Neck: Trachea midline, no thyromegaly or masses palpated, and no cervical lymphadenopathy. Supple, full range of motion without nuchal rigidity, or vertebral point tenderness. Chest/axilla: Normal chest wall appearance and motion. Nontender with no deformity. No lesions are appreciated. Cardiovascular: Regular rate and rhythm with a normal S1 and S2. No gallops, murmurs, or rubs. No pulse deficits. Respiratory: Lungs have equal breath sounds bilaterally, clear to auscultation and percussion. No rales, rhonchi or wheezes noted. No increased work of breathing, no retractions or nasal flaring. Abdomen/GI: Soft, with normal bowel sounds. No distension or tympany. No guarding or rebound. No evidence of tenderness throughout. Back: No spinal tenderness. No costovertebral tenderness. Skin: Warm, dry with normal turgor. Normal color with no rashes, no lesions, and no evidence of cellulitis. MS/ Extremity: Pulses equal, no cyanosis. Neurovascular intact. Full, normal range of motion. Postoperative incision in the right lateral thigh from recent hip surgery Neuro: Awake and alert, GCS 15, oriented to person, place, time, and situation. Cranial nerves II-XII grossly intact. Motor strength 5/5 in all extremities. Sensory grossly intact. Psych: Awake, alert, with orientation to person, place and time. Behavior, mood, and affect are within normal limits ECG was reviewed by the Attending Physician. EKG at 0 224 sinus rhythm rate 86, no ST elevation or depression. Vital Signs: 02:21 BP 110 / 90; Pulse 94; Resp 18; Temp 99; Pulse Ox 100% ; Weight 86.18 kg; Height 4 ft. cp4 11 in. ; Pain 7/10; 04:02 BP 106 / 71; Pulse 79; Resp 18; Pulse Ox 100% ; cp4 05:27 BP 108 / 74; Pulse 74; Resp 18; Pulse Ox 100% ; cp4 06:44 BP 103 / 75; Pulse 76; Resp 18; Pulse Ox 100% ; cp4 07:15 BP 104 / 66; Pulse 84; Resp 16; Pulse Ox 98% on R/A; cm10 02:21 Body Mass Index 38.37 (86.18 kg, 149.86 cm) cp4 02:21 Pain Scale: Adult cp4 [place] Coma Score: 03:00 Eye Response: spontaneous(4). Motor Response: obeys commands(6). Verbal Response: sp4 oriented(5). Total: 15. MDM: 02:39 Medical Screening Exam initiated sp4 07:12 ED course: COMPARISON: CTA Chest 02/08/2025. FINDINGS: Pulmonary arteries: No PE sp4 identified. Aorta: No acute findings. No thoracic aortic aneurysm. Lungs and pleural spaces: Unremarkable. No mass. No consolidation. No significant effusion. No pneumothorax. Heart: No cardiomegaly. No significant pericardial effusion. Bones/joints: No acute fracture. No dislocation. Soft tissues: Unremarkable. Lymph nodes: No pathologically enlarged lymph nodes. Gallbladder and bile ducts: Cholecystectomy. IMPRESSION: No PE identified. Electronically signed by: Anamika Peck MD 08/03/2025 07:07 AM. 08/04 00:38 Differential diagnosis: acute pericarditis, anxiety, coronary artery disease chest wall sp4 pain, esophagitis, gastritis, gastroesophageal reflux disease (GERD). HEART Score: History: Slightly Suspicious (0), ECG: Normal (0), Age: < or = 45 years (0), Risk Factors: No Risk Factors Known (0), Troponin: < or = 1 x Normal Limit (0), Total Score = 0. Data reviewed: vital signs, nurses notes, lab test result(s), EKG, radiologic studies, CT scan. Consideration of Admission/Observation Escalation of care including admission/observation considered. 08/03 02:31 Order name: Basic Metabolic Panel; Complete Time: 06:46 sp4 08/03 02:31 Order name: CBC with Diff; Complete Time: 06:46 sp4 08/03 02:31 Order name: LFT's; Complete Time: 06:46 sp4 08/03 02:31 Order name: Magnesium; Complete Time: 06:46 sp4 08/03 02:31 Order name: NT PRO-BNP; Complete Time: 06:46 sp4 08/03 02:31 Order name: PT-INR; Complete Time: 06:46 sp4 08/03 02:31 Order name: Troponin HS; Complete Time: 06:46 sp4 08/03 02:32 Order name: Test, Serum; Complete Time: 06:46 sp4 08/03 02:31 Order name: CT Chest For PE Angio sp4 08/03 02:31 Order name: EKG; Complete Time: 02:32 sp4 08/03 02:31 Order name: Cardiac monitoring; Complete Time: 02:32 sp4 08/03 02:31 Order name: EKG - Nurse/Tech; Complete Time: 02:32 sp4 08/03 02:31 Order name: IV Saline Lock; Complete Time: :32 sp4 08/03 02:31 Order name: Labs collected and sent; Complete Time: :32 sp4 08/03 02:31 Order name: O2 Per Protocol; Complete Time: :32 sp4 08/03 02:31 Order name: O2 Sat Monitoring; Complete Time: : sp4 EC/07 02:24 Rate is 86 beats/min. Rhythm is regular, Normal Sinus Rhythm. QRS [place] is Normal. [place] sp4 interval is normal. QRS interval is normal. QT interval is normal. No Q waves. T waves are Inverted in leads V2, V3. No ST changes noted. Clinical impression: No evidence of ischemia. Interpreted by me. Reviewed by me. Administered Medications: 02:55 Drug: Diazepam PO 5 mg PO once Route: PO; cp4 07:25 Follow up: Response: No adverse reaction cm10 02:55 Drug: HYDROcodone-acetaminophen PO 5 mg-325 mg 2 tabs PO once Route: PO; cp4 07:25 Follow up: Response: No adverse reaction cm10 02:55 Drug: NS 0.9% IV 1000 ml IV at 1000 ml once; to be given as a bolus over 60 minutes cp4 Route: IV; Rate: 1000 ml; Site: right antecubital; 07:25 Follow up: Response: No adverse reaction; IV Status: Completed infusion; IV Intake: cm10 1000ml Disposition: 08/04 00:38 Chart complete. sp4 Disposition Summary: 08/03/25 07:16 Discharge Ordered Notes: Location: Home sp4 Problem: new sp4 Symptoms: have improved sp4 Condition: Stable sp4 Diagnosis - Acute noncardiac chest pain, acute anxiety attack sp4 Followup: sp4 - With: Private Physician - When: 7 - 10 days - Reason: Recheck today's complaints Discharge Instructions: - Discharge Summary Sheet sp4 - Nonspecific Chest Pain, Adult, [id number] sp4 Forms: - Patient Portal Instructions sp4 Prescriptions: - Valium 5 mg Oral tablet - take 1 tablet ORAL route once daily As needed PRN anxiety; 12 tablet; Refills: sp4 0, Product Selection Permitted Signatures: Dispatcher MedHoJameel Saldana MD MD sp4 Kajal Lugo cp4 Winifred Mariscal RN cm10
--- NOTE | 2025-08-03 07:17 | ER ---
Nurse's Notes [facility] Name: Adelaide Larson Age: 25 yrs Sex: Female : 2000 Arrival Date: 08/03/2025 Time: 02:10 Bed 17 Private MD: Diagnosis: Acute noncardiac chest pain, acute anxiety attack Presentation: 08/03 02:21 Chief complaint: Patient states: chest pain that started 3-4 hours ago. Report recent cp4 right hip replacement on the . Coronavirus screen: Client denies travel out of the [place] in the last 14 days. At this time, the client does not indicate any symptoms associated with coronavirus-19. Ebola Screen: Patient negative for fever greater than or equal to 101.5 degrees Fahrenheit, and additional compatible Ebola Virus Disease symptoms Patient denies exposure to infectious person. Patient denies travel to an Ebola-affected area in the 21 days before illness onset. No symptoms or risks identified at this time. Initial Sepsis Screen: Does the patient meet any 2 criteria? HR > 90 bpm. No. Patient's initial sepsis screen is negative. Does the patient have a suspected source of infection? No. Patient's initial sepsis screen is negative. Risk Assessment: Do you want to hurt yourself or someone else? Patient reports no desire to harm self or others. Onset of symptoms was August 02, 2025 at 23:00. 02:21 Method Of Arrival: Wheelchair cp4 02:21 Acuity: LUIZ 3 cp4 Triage Assessment: 02:23 General: Appears in no apparent distress. uncomfortable, Behavior is calm, cooperative, cp4 appropriate for age. Pain: Complains of pain in chest Pain does not radiate. Pain currently is 7 out of 10 on a pain scale. Pain began 3 hours ago. EENT: No signs and/or symptoms were reported regarding the EENT system. Neuro: Level of Consciousness is awake, alert, obeys commands, Oriented to person, place, time, situation. Cardiovascular: Reports chest pain, Patient's skin is warm and dry. Rhythm is sinus rhythm. Respiratory: Airway is patent Respiratory effort is even, unlabored. GI: No signs and/or symptoms were reported involving the gastrointestinal system. : No signs and/or symptoms were reported regarding the genitourinary system. Derm: No signs and/or symptoms reported regarding the dermatologic system. Musculoskeletal: No signs and/or symptoms reported regarding the musculoskeletal system. 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 - Infectious Disease History:: Denies. - Social history:: Smoking status: Patient denies any tobacco usage or history of. - Family history:: not pertinent. Screenin:[facility] ED Fall Risk Assessment (Adult) History of falling in the last 3 months, cp4 including since admission No falls in past 3 months (0 pts) Confusion or Disorientation No (0 pts) Intoxicated or Sedated No (0 pts) Impaired Gait No (0 pts) Mobility Assist Device Used No (0 pt) Altered Elimination No (0 pt) Score/Fall Risk Level 0 - 2 = Low Risk Oriented to surroundings, Maintained a safe environment, Assessed \T\ reinforced patient's understanding of fall precautions, Hourly rounding (assess needs \T\ fall precautionary measures) done. Abuse screen: Denies threats or abuse. Denies injuries from another. Nutritional screening: No deficits noted. Tuberculosis screening: No symptoms or risk factors identified. Never had TB. Assessment: 02:25 Reassessment: No changes from previously documented assessment. cp4 03:30 Reassessment: Patient appears in no apparent distress at this time. Patient and/or cp4 family updated on plan of care and expected duration. Pain level reassessed. Patient is alert, oriented x 3, equal unlabored respirations, skin warm/dry/pink. 04:30 Reassessment: Patient appears in no apparent distress at this time. Patient and/or cp4 family updated on plan of care and expected duration. Pain level reassessed. Patient is alert, oriented x 3, equal unlabored respirations, skin warm/dry/pink. 05:30 Reassessment: Patient appears in no apparent distress at this time. Patient and/or cp4 family updated on plan of care and expected duration. Pain level reassessed. Patient is alert, oriented x 3, equal unlabored respirations, skin warm/dry/pink. 06:43 Reassessment: Patient appears in no apparent distress at this time. Patient and/or cp4 family updated on plan of care and expected duration. Pain level reassessed. Patient is alert, oriented x 3, equal unlabored respirations, skin warm/dry/pink. 07:15 General: Appears in no apparent distress. comfortable, Behavior is calm, cooperative, cm10 appropriate for age. Neuro: No deficits noted. Level of Consciousness is awake, alert, obeys commands, Oriented to person, place, time, situation, Appropriate for age. Respiratory: No deficits noted. Airway is patent Respiratory effort is even, unlabored, Respiratory pattern is regular, symmetrical. Vital Signs: 02:21 BP 110 / 90; Pulse 94; Resp 18; Temp 99; Pulse Ox 100% ; Weight 86.18 kg; Height 4 ft. cp4 11 in. ; Pain 7/10; 04:02 BP 106 / 71; Pulse 79; Resp 18; Pulse Ox 100% ; cp4 05:27 BP 108 / 74; Pulse 74; Resp 18; Pulse Ox 100% ; cp4 06:44 BP 103 / 75; Pulse 76; Resp 18; Pulse Ox 100% ; cp4 07:15 BP 104 / 66; Pulse 84; Resp 16; Pulse Ox 98% on R/A; cm10 02:21 Body Mass Index 38.37 (86.18 kg, 149.86 cm) cp4 02:21 Pain Scale: Adult cp4 [place] Coma Score: 03:00 Eye Response: spontaneous(4). Motor Response: obeys commands(6). Verbal Response: sp4 oriented(5). Total: 15. ED Course: 02:19 Patient arrived in ED. cp4 02:21 Kajal Lugo is Primary Nurse. cp4 02:23 Triage completed. cp4 02:23 Arm band placed on right wrist. Patient placed in waiting room. cp4 02:25 Jameel Jaime MD is Attending Physician. sp4 02:26 Placed in gown. Bed in low position. Call light in reach. Side rails up X2. Client cp4 placed on continuous cardiac and pulse oximetry monitoring. NIBP monitoring applied. 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 Pulse ox on. NIBP on. 02:26 No provider procedures requiring assistance completed. Patient maintains SpO2 cp4 saturation greater than 95% on room air. 02:35 EKG done, by ED staff, reviewed by Jameel Jaime MD. oe 02:45 Inserted saline lock: 20 gauge in right antecubital area, using aseptic technique. oe Blood collected. Flushed with 10 mL NS. 04:30 CT Chest For PE Angio In Process Unspecified. EDMS 07:24 Provided Education on: Follow-up instructions. cm10 07:24 IV discontinued, intact, bleeding controlled, No redness/swelling at site. Pressure cm10 dressing applied. Administered Medications: 02:55 Drug: Diazepam PO 5 mg PO once Route: PO; cp4 07:25 Follow up: Response: No adverse reaction cm10 02:55 Drug: HYDROcodone-acetaminophen PO 5 mg-325 mg 2 tabs PO once Route: PO; cp4 07:25 Follow up: Response: No adverse reaction cm10 02:55 Drug: NS 0.9% IV 1000 ml IV at 1000 ml once; to be given as a bolus over 60 minutes cp4 Route: IV; Rate: 1000 ml; Site: right antecubital; 07:25 Follow up: Response: No adverse reaction; IV Status: Completed infusion; IV Intake: cm10 1000ml Medication: 02:26 VIS not applicable for this client. cp4 Intake: 07:25 IV: 1000ml; Total: 1000ml. cm10 Outcome: 07:16 Discharge ordered by . sp4 07:25 Discharged to home with family, cm10 07:25 Condition: good 07:25 Discharge instructions given to patient, Instructed on discharge instructions, follow up and referral plans. medication usage, Demonstrated understanding of instructions, follow-up care, medications, Prescriptions given X 1, 07:36 Patient left the ED. af3 Signatures: Dispatcher [employer] EDME Johann Chen Sergey, MD MD sp4 Winifred Mariscal RN RN cm10 Kajal Lugo cp4 Jossie Wong RN RN af3
[2025-08-03 07:41] VITALS: TEMP 99
[2025-08-03 07:51] VITALS: BP 104/66; O2SAT 98
== END 2025-08-03 07:36 | disposition home or self-care (01) ==
LOC: ER 02:10
DX: F41.9 Anxiety disorder, unspecified (principal)
CPT/HCPCS: 96361; 93005; 85025; 80048; 36415; 83735; 84703; 85610; 80076; 84484; 83880; 71275; 96360; 99285; Q9967; J7030